=== PATIENT | female | born 1955 | race Caucasian/White ===

== ENCOUNTER → 2019-05-28 16:00 | Outpatient (CLI) | payer MEDICARE, SELFPAY ==
--- NOTE | 2019-05-28 | IMM_PTH ---
PATIENT: LEXIE WOLFE LOC: [facility] U#:[id number] AGE/SX: 69/F ROOM: RE05/28/[address]: Dr. Paresh Alanis MD : 1955 BED: DIS: SPEC #: [id number] RECD: 05/30/19 13:35 STATUS: LIDA REQ #: [id number] PATRICIA: 05/28/19 00:[address]: Paresh Alanis DEPT: IMMUNOHISTOCHEMISTRY RECD BY: Lizette Beatty ENTERED: 05/30/19 13:37 SP TYPE: IMMUNO OTHR DR: Dr. Beatrice Iraheta MD Tissues: Skin of vulva Procedures: p16 (initial) KI-67 (add) PHYSICIAN & INSTITUTION [place] [id number] SPECIMEN INFORMATION: Tissue Source: Vulvar lesion Clinical Info: Vulvar lesion Specimen Number: [id number] CPT code: 65034, 08597 METHODOLOGY: Deparaffinized sections of prefer/formalin-fixed tissue or PAP/DQ stained slides are incubated with monoclonal/polyclonal antibodies/oligonucleotide probes. Localization is made via biotin free immunoperoxidase method. Appropriate controls are performed and reacted as expected. Results on target cell population are indicated in the following table: RESULTS: ANTIBODY / CLONE RESULT P16 (E6H4) positive, block staining Ki-67 (30-9) positive, moderate These tests were developed and their performance characteristics determined by [facility]. They may not have been cleared or approved by the U.S. Food and Drug Administration. The FDA has determined that such clearance or approval is not necessary. The above immunohistochemical/dualISH markers are ordered and reviewed by the Pathologist. INTERPRETATION: Vulvar lesion, excision: Consistent with moderate squamous dysplasia. SJ:brenna 05/31/19 Case has been reviewed in consultation with Dr. Melendez who concurs with the above diagnosis. IDC:AM
--- NOTE | 2019-05-28 16:00 | VUL_PTH ---
PATIENT: LEXIE WOLFE [facility] U[facility][id number] AGE/SX: 69/F ROOM: RE05/28/[address]: Dr. Paresh Alanis MD : 1955 BED: DIS: SPEC #: [id number] RECD: 05/29/19 10:41 STATUS: LIDA MELGARDanae #: [id number] PATRICIA: 05/28/19 16:[address]: Paresh Alanis DEPT: SURGICAL PATHOLOGY RECD BY: Vickie Ramos ENTERED: 05/29/19 13:48 SP TYPE: VULVA BX OTHR DR: Dr. 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 See comment. SJ:brenna 05/30/19 COMMENT Immunohistochemistry ([id number]) for surrogate HPV marker (p16) supports the above diagnosis. Clinical correlation and appropriate follow up are necessary. Case has been reviewed in consultation with Dr. Melendez who concurs with the above diagnosis. IDC:AM MICROSCOPIC DESCRIPTION Slides are reviewed. GROSS DESCRIPTION Received in fixative is one container labeled with the patient's name and designated vulvar lesion. The specimen consists of two irregular fragments of moses tissue that in aggregate measure 1 x 0.5 x 0.1 cm. The specimen is totally submitted in one cassette. / AM:brenna 05/29/19 TC:5 CPT: 64719
[2019-05-31 15:16] LABS: HPV Reflexed? NOT INDICATED
== END ==
PROVIDERS: Family Provider Family Medicine; PCP Family Medicine; Referring Provider Obstetrics & Gynecology; Visit Provider Obstetrics & Gynecology
DX: N89.4 Leukoplakia of vagina (principal); Z12.4 Encounter for screening for malignant neoplasm of cervix
CPT/HCPCS: 88175; 88305; 88341; 88342; G0145

== ENCOUNTER → 2019-06-05 17:31 | Outpatient (CLI) | payer MEDICARE, SELFPAY ==
--- NOTE | 2019-06-05 | CYSPIN_PTH ---
PATIENT: LEXIE WOLFE LOC: [facility] U#:[id number] AGE/SX: 69/F ROOM: RE06/05/[address]: Dr. Joyce Higginbotham MD : 1955 BED: DIS: SPEC #: [id number] RECD: 06/06/19 17:34 STATUS: LIDA REDanae #: [id number] PATRICIA: 06/05/19 00:[address]: Joyce Higginbotham DEPT: CYTOLOGY RECD BY: Maxi Carvalho ENTERED: 06/06/19 10:23 SP TYPE: CYSPIN FL OTHR DR: Dr. Beatrice Iraheta MD Tissues: Urine Procedures: Pap Stain (control) Special Stain Group II Cytospin Fluid HEADER OPERATION: Not noted PRE-OP DIAGNOSIS: R30.0 TISSUE SUBMITTED: Urine for cytology DIAGNOSIS CYTOLOGY Urine for cytology (cytospin): Positive for malignant cells consistent with urothelial carcinoma. AM:brenna 1/17/20 COMMENT Case has been reviewed in consultation with Dr. Farley who concurs with the above diagnosis. IDC:SJ CYTOLOGY STUDY Slides are reviewed. CYTOLOGY GROSS Received is 5 ml of clear yellow fluid labeled with the patient's name and and designated per the requisition as urine. Submitted for cytology preparation. / rg 06/06/19 TC:0 [facility]: [id number]
[2019-06-05 17:35] LABS: Cytology, Body Fluid / CSF SEE PATHOLOGY REPORT
== END ==
PROVIDERS: PCP Family Medicine; Referring Provider Urology; Visit Provider Urology
DX: R30.0 Dysuria (principal)
CPT/HCPCS: 88108; 88313

== ENCOUNTER → 2019-06-06 14:20 | Outpatient (CLI) | payer MEDICARE, SELFPAY ==
--- NOTE | 2019-06-06 14:23 | CT_ITS ---
STUDY: CT ABDOMEN AND PELVIS WITH AND WITHOUT CONTRAST REASON FOR EXAM: Female, 64 years old. GROSS HEMATURIA, BLADDER/VULVA CA-NEW DIAGNOSIS RADIATION DOSAGE (If Supplied By Facility): CTDIvol = ( 8.92 ) mGy, DLP = ( 916.54 ) mGycm TECHNIQUE: Transaxial images were obtained from the dome of the diaphragm to the symphysis pubis without oral contrast. IV 100mL Isovue-300 was administered. Sagittal and coronal images were reconstructed. Individualized dose optimization techniques were used for this CT. COMPARISON: None. FINDINGS: There are emphysematous changes of the lung bases. The visualized portions of the heart are within normal limits. Normal liver. Normal gallbladder and extrahepatic biliary system. Normal spleen. There are pancreatic calcifications in the distribution of the ducts consistent with chronic pancreatitis. Normal bilateral adrenal glands. 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 Normal left kidney. Normal visualized stomach. Normal small intestine. Normal colon. The appendix is visualized and appears normal. There are calcified plaques of the abdominal aorta and common iliac arteries. Normal inferior vena cava. There are scattered shotty retroperitoneal nodes. There is diffuse wall thickening of the right lateral aspect of the bladder. There is a lobular heterogeneous mass of the anterior right bladder measuring approximately 2.7 x 1.8 cm. A small amount of gas is seen in the bladder. There are metallic clips of the right pelvis. The uterus is located to the right of midline. There is an irregular soft tissue mass of the vulva slightly to the right of midline measuring approximately 9.2 x 4.4 x 5.0 cm. There is a small umbilical hernia containing fat. Normal osseous structures. CT/CT Abd/Pelvis W/WO Contrast IMPRESSION: 1. Diffuse wall thickening of the right lateral aspect of the bladder. There is a lobular heterogeneous mass of the anterior right bladder wall measuring approximately 2.7 x 1.8 cm. A small amount of gas is present in the bladder. 2. There is an irregular soft tissue mass of the vulvar region slightly to the right of midline measuring overall approximately 9.2 x 4.4 x 5.0 cm. 3. Emphysematous changes of the lung bases. 4. Numerous punctate pancreatic calcifications seen consistent with chronic pancreatitis. 5. The right kidney is located in the upper pelvis and is malrotated. 6. There are scattered shotty retroperitoneal nodes. Electronically Signed: Pop Fuchs MD at 20:21 EST , Service support ,
[2019-06-06 14:46] LABS: CREATININE FINGERSTICK 0.9 mg/dL (0.55-1.02)
== END ==
PROVIDERS: Family Provider Family Medicine; PCP Family Medicine; Referring Provider Urology; Visit Provider Urology
DX: R31.0 Gross hematuria (principal)
CPT/HCPCS: 74178; Q9967

== ENCOUNTER 2019-07-12 08:33 | Day surgery (SDC) | payer MEDICARE, SELFPAY ==
[2019-07-10 08:52] VITALS: BMI 18.7
--- NOTE | 2019-07-10 08:52 | HP_ITS ---
Intake Intake Visit Reasons: PORT PLACEMENT Chief Complaint: Bladder cancer Allergies egg Adverse Reaction (Severe, Verified 07/04/19 13:39) Itching Egg Derived Adverse Reaction (Severe, Verified 07/04/19 13:39) Itching PFSH Family History (Updated 07/04/19 @ 13:39 by Myrna Davidevgeny) Mother Heart disease Hypertension Father Hypertension Heart disease Social History (Updated 07/10/19 @ 08:[address] Frantz Gann MD) Smoking Status: Light Smoker (<10/day) HPI HPI HPI: LEXIE WOLFE, is a 64 F who presents to the office today for HPI HPI Surgical H&P: Yes HPI: LEXIE WOLFE, is a 64 F who presents to the office today for port placement. The patient has bladder cancer and requires port for treatment. ROS General General: No weight change or fatigue Cardio Cardiovascular: No murmur, pacemaker, heart disease, atrial fibrillation, high blood pressure, heart attack, heart stent, palpitations, shortness of breat with exertion or chest pain Psych Psychiatric: No depression or anxiety Resp Respiratory: No shortness of breath, No sleep apnea, No cough, No COPD, No asthma, No emphysema, No wheezing Gastro Gastrointestinal: No abdominal pain, No nausea or vomiting, No diarrhea, No constipation, No blood in stool, No acid reflux, No hemorrhoids, No ulcers, No gallbladder problem, No black,tarry stools Ananda Hematologic: No blood thinners Exam Const General: cooperative Orientation: alert, oriented x3 Resp Effort & Inspection: normal respiratory effort Auscultation: clear to auscultation bilaterally Cardio Rate: regular rate Rhythm: regular rhythm Heart Sounds: no murmurs GI Inspection: non-distended Palpation: soft, nontender Assessment & Plan Problems 1. Malignant neoplasm of urinary bladder, unspecified site C67.9 2. Encounter for adjustment and management of vascular access device Z45.2 Plan The patient requires port for treatment. I discussed port placement with her in detail. I discussed the risks including not limited to bleeding, infection, pneumothorax, port infection, DVT. The patient understands the risks and is willing to proceed. Frantz Gann MD Pager: [facility] [address] [place] [address], [address] [place] [address] Office: Coding Level of Care Code Off vis,new,level 3 Diagnoses Malignant neoplasm of urinary bladder, unspecified site C67.9 ??Bladder location: unspecified site Encounter for adjustment and management of vascular access device Z45.2 07/10/19 0853 <Electronically signed by Frantz duenas MD> Date _ Frantz Gann MD I have re-examined the patient. There are no clinical changes since date of exam.
[2019-07-12] VITALS (8 sets, daily range): BP systolic 110–131; BP diastolic 64–78; PULSE 81–86; RESP 14–16; TEMP 36.3–37.3; O2SAT 97–100; BMI 19.0
[2019-07-12] MEDS: Lactated Ringers 1,000 ML 100 ML IV ×2 (09:24→10:38)
[2019-07-12] MEDS: Cefazolin 2 GM in 0.9% Normal Saline 100 ML IV (09:56)
[2019-07-12] MEDS: Bupiv/Epi 0.5% Mpf 30 ML Vial (10:23)
--- NOTE | 2019-07-12 11:05 | RAD_ITS ---
STUDY: X-RAY CHEST REASON FOR EXAM: Female, 64 years old. POST PORT PLACEMENT TECHNIQUE: Single AP portable view of the chest. COMPARISON: None. FINDINGS: A right-sided portacatheter is in situ. The tip is at the junction of the superior vena cava and right atrium. EKG electrodes are seen. Hyperinflation. Mild increased markings at the right lung base suggestive of atelectasis. There is no demonstrated pleural abnormality. Normal size heart. Normal mediastinum and sheila. Normal visualized pulmonary arteries. Normal visualized aortic arch and descending thoracic aorta. Normal visualized thoracic spine. Normal visualized ribs, clavicles, and shoulders. There is no demonstrated abnormality of the visualized soft tissue structures of the upper abdomen. RAD/CXR for Line Placement IMPRESSION: The tip of the right adalid catheter is at the junction of the superior vena cava and right atrium. Electronically Signed: Hay Silva, at 12:06 EST , Service support ,
--- NOTE | 2019-07-12 11:17 | OP.PCM_ITS ---
Problem List (1) Encounter for adjustment and management of vascular access device Status: Acute (2) Bladder cancer Status: Acute Qualifiers: Report of Operation Date of Procedure: 07/12/19 Pre-Operative Diagnosis: Bladder cancer. Need for vascular access Post-Operative Diagnosis: Same Surgery/Procedure Performed:: Ultrasound and fluoroscopy guided right chest port placement utilizing right IJ Description of Procedure: After obtaining informed consent patient was brought back to the operating room MAC anesthesia was induced and the right chest and neck were prepped in normal sterile fashion. Ultrasound was used to evaluate both IJs and the right IJ was selected. Next, using a needle, the right IJ was accessed and a guidewire was passed on into the superior vena cava under fluoroscopy guidance. A small incision was made over the puncture site and the dilator introducer was placed over the guidewire. Next this was capped and the pocket was made for the port. 1% lidocaine with epinephrine was injected in the proposed port site. An incision was made with scalpel. Electrocautery was used to make a pocket under the skin and subcutaneous tissue. Hemostasis was obtained. Next, the catheter was tunneled up to the neck incision site and placed through the introducer. The peel-away introducer was removed and the position of the catheter was confirmed on fluoroscopy. Next, the catheter was trimmed and attached to the port with the locking device. Interrupted 2-0 Vicryl sutures were used to anc hor the port to the chest wall and then the port was placed inside the pocket. The pocket was then flushed with saline and the port irrigated with saline. There was good blood return and the port flushed easily. Next, heparin was injected into the port. The skin was closed with subcutaneous interrupted 3-0 Vicryl sutures. A single 3-0 Vicryl sutures placed under the skin at the neck incision site. Steri-Strips were placed as well as op sites. Patient tolerated procedure well, was taken to PACU in stable condition. Chest x-ray will be obtained. Grafts/Implants Used: 8 [employer] PowerPort - Admit VTE Documentation VTE Mechan Device Prophylaxis: SCD's
--- NOTE | 2019-07-12 11:18 | DCINST_ITS ---
Discharge Diet: No Restrictions - Pain medication may cause nausea. You should typically eat light foods as you take your pain medication. Discharge Activity: Return to Normal Activity, May Shower - with your bandage in place in 1-2 days after surgery. DO NOT SHOWER WHEN YOUR PORT IS ACCESSED. Call your doctor if your incision/area has: Continuous Slow Oozing, Sudden Increased Bleeding, Increased Pain/ Swelling, Increased Redness Call your doctor if you observe: Fever of 101 or Higher Remove Dressing in (days):: 3 - When you remove the bandage, leave the steri- strips intact until they fall off. Allergies/Adverse Reactions: Allergies egg Adverse Reaction (Severe, Verified 07/10/19 15:06) Itching Egg Derived Adverse Reaction (Severe, Verified 07/10/19 15:06) Itching Medications to take at Discharge NK 07/10/19 Test Results: Test results from this visit will be discussed in further detail at your follow- up appointment, if applicable. Please Follow Up With: Frantz Gann MD When: Please call to schedule 2 week follow up appointment. [phone]
== END 2019-07-12 11:35 | disposition home or self-care (01) ==
LOC: SDC 08:34 → AC 08:35
PROVIDERS: PCP Family Medicine; Referring Provider Surgery; Visit Provider Surgery
PROC: (CPT 36561; principal; 2019-07-12 10:15)
DX: C67.9 Malignant neoplasm of bladder, unspecified (principal); Z45.2 Encounter for adjustment and management of vascular access device; F17.200 Nicotine dependence, unspecified, uncomplicated; Z85.41 Personal history of malignant neoplasm of cervix uteri
CPT/HCPCS: 00532; 36561; 71045; 77001; J7120; C1788

== ENCOUNTER → 2019-10-22 | Outpatient (CLI) | payer MEDICARE, SELFPAY ==
[2019-10-07 08:43] VITALS: BMI 20.5
[2019-10-15 10:15] VITALS: BMI 20.5
--- NOTE | 2019-10-22 13:55 | CT_ITS ---
STUDY: CT ABDOMEN AND PELVIS WITH CONTRAST REASON FOR EXAM: Female, 64 years old. BLADDER CA ASSESS RESPONSE TO TREATMENT, HAD ABD TUMOR REMOVED AND CHEMO RADIATION DOSAGE (If Supplied By Facility): CTDIvol = ( 8.91 ) mGy, DLP = ( 609.44 ) mGycm TECHNIQUE: Transaxial images were obtained from the dome of the diaphragm to the symphysis pubis without oral contrast. IV 100mL Isovue-370 was administered. Sagittal and coronal images were reconstructed. Individualized dose optimization techniques were used for this CT. COMPARISON: Comparison is made with prior study dated June 06, 2019. FINDINGS: Emphysematous changes are seen at the lung bases. The visualized portions of the heart are within normal limits. Normal liver. Normal gallbladder and extrahepatic biliary system. Normal spleen. There are pancreatic calcifications in the distribution of the ducts consistent with chronic pancreatitis. 2 tiny cysts are seen in the tail of the pancreas. Normal bilateral adrenal glands. Normal right kidney. Normal left kidney. Normal visualized stomach. Normal small intestine. Normal colon. The appendix is visualized and appears normal. There is diffuse atherosclerotic calcification of the abdominal aorta, without a demonstrated aneurysm. Normal inferior vena cava. There is borderline retroperitoneal lymphadenopathy with enlarged nodes no greater than 10mm in the short axis diameter. Minimal residual thickening of the right side of the wall of the urinary bladder. The mass lesion has decreased in size. Enlarged calcified fibroid uterus. The uterus is retroverted. Interval decrease in size of the bilateral inguinal lymph. Normal abdominal wall. There are degenerative changes of the visualized lumbar spine. Straightening of the normal lumbar lordosis. CT/Abdomen/Pelvis W IV Cont ONLY IMPRESSION: Stable examination except for the mild residual bladder wall thickening along the right lateral wall of the urinary bladder. Electronically Signed: Hay Silva, at 14:54 EDT , Service support ,
--- NOTE | 2019-10-22 13:55 | CT_ITS ---
STUDY: CT CHEST WITH CONTRAST REASON FOR EXAM: Female, 64 years old. BLADDER CA ASSESS RESPONSE TO TREATMENT, HAD ABD TUMOR REMOVED AND CHEMO RADIATION DOSAGE (If Supplied By Facility): CTDIvol = ( 8.91 ) mGy, DLP = ( 609.44 ) mGycm TECHNIQUE: Transaxial imaging was performed following intravenous administration of IV 100mL Isovue-370. Multiplanar coronal and sagittal images were reformatted. Individualized dose optimization techniques were used for this CT. COMPARISON: None. FINDINGS: A right-sided portacatheter is seen with the tip in the superior vena cava. Diffuse emphysematous changes with multiple bullous formation worse in the right upper lobe. Also evidence of a soft tissue density in the peripheral lateral aspect of the right upper lobe suggestive of a scarring. There is no demonstrated pleural abnormality. Normal heart and pericardium. Normal mediastinum. Normal hilar regions. Normal enhanced pulmonary arteries. There is atherosclerotic calcification of the aortic arch. Normal osseous structures. There is no demonstrated abnormality of the visualized upper abdomen. CT/Chest WITH Contrast IMPRESSION: Diffuse emphysematous changes with bullous formation worse in the right upper lobe and findings suggestive of scarring of both lung apices worse on the right side. Electronically Signed: Hay Silva, at 14:57 EDT , Service support ,
== END | disposition home or self-care (01) ==
LOC: CT 13:55
PROVIDERS: PCP Family Medicine; Referring Provider Internal Medicine Hematology & Oncology; Visit Provider Internal Medicine Hematology & Oncology
DX: C67.9 Malignant neoplasm of bladder, unspecified (principal); C82.90 Follicular lymphoma, unspecified, unspecified site; D07.1 Carcinoma in situ of vulva
CPT/HCPCS: 71260; 74177; Q9967

== ENCOUNTER → 2019-12-24 | Outpatient (CLI) | payer MEDICARE, SELFPAY ==
[2019-12-09 12:40] VITALS: BMI 18.4
[2019-12-23 09:11] VITALS: BMI 18.5
--- NOTE | 2019-12-24 15:00 | PET_ITS ---
EXAMINATION: FDG PET-CT INDICATIONS: A 64-year-old female with reported history of carcinoma of the urinary bladder presenting for restaging examination and remote history of cervical carcinoma. COMPARISON EXAMINATION: FDG PET study dated 07/15/2019 TECHNIQUE: Following the intravenous administration of 14.0 mCi of F-18 deoxyglucose via the right antecubital fossa, multiplanar image acquisitions of the neck, chest, abdomen and pelvis to level of mid thigh, obtained at one hour post radiopharmaceutical administration contemporaneously interpreted with the current CT of the neck, chest, abdomen and pelvis, to level of mid thigh, dated 12/24/2019 via coregistration and prior FDG PET study dated 07/15/2019 reveals: BLOOD GLUCOSE LEVEL:?? 88 mg/dl?HEIGHT:?64 inches?WEIGHT: 107 lbs. FINDINGS: 1. There is no quantitative scintigraphic evidence of abnormal increased glucose metabolism on meticulous inspection of whole body acquisitions to include all three axis reconstructions. 2. Normal physiologic distribution of the radiopharmaceutical is apparent in the hepatic and splenic parenchyma, both renal units, and visualized intestinal tract. The visualized portion of the cerebral cortex demonstrate symmetric and preserved glucose metabolism. There is evidence of an ileal conduit-urinary diversion. Diffuse radiopharmaceutical concentration is noted in all four quadrants of the abdomen and pelvis. There is a visualized urinary diversion with evidence of interim cystectomy. Previously identified hypermetabolic foci noted in the bilateral-lateral neck, axillary, mediastinal and thoracic perihilar, right-left hemipelvic and inguinal lymph node distributions are not apparent on the present examination. The urinary bladder is surgically absent. Urinary diversion is defined as described above. Previously defined morphologic-anatomic changes noted on review of CT of the neck, chest, abdomen and pelvis on the FDG PET-CT report dated 07/15/2019, are essentially unchanged on the current examination. PET/PET/CT Tumor Base -Thigh Subs IMPRESSION: 1. NEGATIVE EXAMINATION. There is no definitive quantitative scintigraphic evidence of recurrent-metastatic/viable neoplasm. 2. There is interim metabolic resolution of all prior defined hypermetabolic abnormalities. 3. Overall, compared to the prior FDG PET study dated 07/15/2019, there is current absence of defined viable neoplastic disease with interim metabolic resolution of all previously described abnormal metabolic foci. Electronic Signature Elder Rodriguez D.O. Accurate Quantification of SUVs for this report are calculated using the exclusive [employer]. Electronically Signed: Elder Rodriguez DO at 16:36 EDT Tel , Service support ,
--- NOTE | 2019-12-30 10:45 | ONC.PHONE ---
I called Linda Kim to review the PET scan results from 12/24/2019 which demonstrated no evidence of recurrent or metastatic disease. I also again reviewed options for adjuvant radiation therapy given the lymph node positivity but also discussed options of observation given that she has negative margins and again reviewed that the use of radiation in this scenario does not come with a high level of data and a recent randomized trial is trying to address the question. Ultimately with the delayed healing/and some difficulty from surgery and need to care for her disabled son pursuing the radiation at this time a have more risks than benefits given the higher likelihood of systemic recurrence than pelvic recurrence and for these reasons we have decided to avoid radiation therapy. She was instructed to maintain follow-up with her surgeon and medical oncologist and to call with any further questions or concerns in the future.
== END | disposition home or self-care (01) ==
LOC: ONC 13:05
PROVIDERS: PCP Family Medicine
DX: C67.4 Malignant neoplasm of posterior wall of bladder (principal); C77.5 Secondary and unspecified malignant neoplasm of intrapelvic lymph nodes
CPT/HCPCS: 78815; A9552

== ENCOUNTER → 2020-05-05 12:52 | Outpatient (CLI) | payer MEDICARE, SELFPAY ==
[2019-12-09 12:40] VITALS: BMI 18.4
[2019-12-23 09:11] VITALS: BMI 18.5
[2020-02-17 14:34] VITALS: BMI 17.2
--- NOTE | 2020-05-05 12:56 | CT_ITS ---
STUDY: CT CHEST WITH CONTRAST REASON FOR EXAM: Female, 65 years old. FOLLOW UP ON BLADDER CA. HAD UROSTOMY AND THEN CHEMO SEPTEMBER OF 2019. RADIATION DOSAGE (If Supplied By Facility): CTDIvol = ( 9.37 ) mGy, DLP = ( 926.53 ) mGycm TECHNIQUE: Transaxial imaging was performed following intravenous administration of IV 75mL Isovue-300. Multiplanar coronal and sagittal images were reformatted. Individualized dose optimization techniques were used for this CT. COMPARISON: Comparison is made with prior CT scan of the thorax dated 10/22/2019. FINDINGS: Hyperinflation. Diffuse emphysematous changes with bullous formation worse in the right upper lobe. Findings suggestive of a stable mild scarring at the right lung base. There is no demonstrated pleural abnormality. There are calcifications of the coronary arteries. Normal mediastinum. Normal hilar regions. Normal enhanced pulmonary arteries. There is atherosclerotic calcification of the aortic arch with tortuosity and elongation of the aortic arch and descending thoracic aorta. Normal osseous structures. There is no demonstrated abnormality of the visualized upper abdomen. CT/Chest WITH Contrast IMPRESSION: Emphysematous changes. There is been no change as compared to prior study. Electronically Signed: Hay Silva, at 14:47 EST , Service support ,
--- NOTE | 2020-05-05 13:20 | CT_ITS ---
STUDY: CT ABDOMEN AND PELVIS WITH CONTRAST REASON FOR EXAM: Female, 65 years old. FOLLOW UP ON BLADDER CA. HAD UROSTOMY AND THEN CHEMO SEPTEMBER OF 2019. RADIATION DOSAGE (If Supplied By Facility): CTDIvol = ( 9.37 ) mGy, DLP = ( 926.53 ) mGycm TECHNIQUE: Transaxial images were obtained from the dome of the diaphragm to the symphysis pubis without oral contrast. IV 75mL Isovue-300 was administered. Sagittal and coronal images were reconstructed. Individualized dose optimization techniques were used for this CT. COMPARISON: Comparison is made with prior study dated 10/22/2019. FINDINGS: Minimal increased linear markings at the right lung base suggestive of mild scarring. The visualized portions of the heart are within normal limits. Normal liver. Normal gallbladder and extrahepatic biliary system. Normal spleen. There are pancreatic calcifications in the distribution of the ducts consistent with chronic pancreatitis. Normal bilateral adrenal glands. Normal right kidney. Normal left kidney. Normal visualized stomach. Normal small intestine. Normal colon. The appendix is visualized and appears normal. There is diffuse atherosclerotic calcification of the abdominal aorta, without a demonstrated aneurysm. Normal inferior vena cava. There is borderline retroperitoneal lymphadenopathy with enlarged nodes no greater than 10mm in the short axis diameter. The patient is status post resection of the bladder with a urostomy in the lower right patient is status post hysterectomy. Anterior abdominal wall . The uterus is retroverted. Normal abdominal wall. There are diffuse degenerative changes of the visualized lumbar spine. CT/Abdomen/Pelvis WITH Contrast IMPRESSION: Stable examination. Electronically Signed: Hay Silva, at 14:44 EST , Service support ,
== END ==
LOC: CT 12:53
PROVIDERS: PCP Family Medicine
DX: C77.5 Secondary and unspecified malignant neoplasm of intrapelvic lymph nodes (principal); C67.9 Malignant neoplasm of bladder, unspecified
CPT/HCPCS: 71260; 74177; Q9967

== ENCOUNTER → 2020-08-20 08:11 | Outpatient (CLI) | payer MEDICARE, SELFPAY ==
[2019-12-23 09:11] VITALS: BMI 18.5
[2020-05-28 12:10] VITALS: BMI 16.9
--- NOTE | 2020-08-20 08:20 | CT_ITS ---
STUDY: CT CHEST, ABDOMEN T PELVIS WITH CONTRAST REASON FOR EXAM: Female, 65 years old. FOLLOW UP URINARY BLADDER CANCER RADIATION DOSAGE (If Supplied By Facility): CTDIvol = ( 9.6 ) mGy, DLP = ( 548.75 ) mGycm TECHNIQUE: Transaxial imaging was performed following intravenous administration of IV 100mL Isovue-300. Individualized dose optimization techniques were used for this CT. COMPARISON: Comparison is made with prior examination dated 05/05/2020. FINDINGS: CHEST A right-sided portacatheter is seen with the tip in the superior vena cava. Hyperinflation. Diffuse emphysematous changes with bullous formation worse in the upper lobes. Stable fibrocalcific scarring in the posterior lateral aspect of the left lung apex. There is no demonstrated pleural abnormality. There are calcifications of the coronary arteries. Normal mediastinum. Normal hilar regions. Normal unenhanced pulmonary arteries. There is atherosclerotic calcification of the aortic arch with tortuosity and elongation of the aortic arch and descending thoracic aorta. Normal osseous structures. There is no demonstrated abnormality of the visualized upper abdomen. ABDOMEN The visualized lung bases are unremarkable. The visualized portions of the heart are within normal limits. Normal liver. Normal gallbladder and extrahepatic biliary system. Normal spleen. Normal pancreas. Normal bilateral adrenal glands. Normal right kidney. Normal left kidney. Normal visualized stomach. Normal small intestine. Normal colon. The appendix is visualized and appears normal. There is diffuse atherosclerotic calcification of the abdominal aorta, without a demonstrated aneurysm. Normal inferior vena cava. Normal retroperitoneum. An ileostomy is seen in the right lower quadrant. The patient is status post cystostomy. Normal osseous structures. PELVIS Normal urinary bladder. Hysterectomy. Normal visualized small intestine. Normal visualized colon. There is no pelvic fluid. There is no pelvic lymphadenopathy or mass lesion. Normal visualized pelvic arteries. Normal abdominal wall. There are diffuse degenerative changes of the visualized lumbar spine. CT/CT Chest, Abd, Pel w/Contrast IMPRESSION: Stable examination. Electronically Signed: Hay Silva MD at 12:57 EDT , Service support ,
[2020-08-20 08:24] LABS: Absolute Lymphocyte Count 1.36 X10^3/uL (0.83-4.51); Basophil# 0.06 X10^3/uL; Eosinophil# 0.24 X10^3/uL; Eosinophils% 3.9 % (0-5); Hematocrit 46.5 % (37-47); Hemoglobin 15.3 g/dL (12.0-15.0); Lymphocyte # 1.36 X10^3/ul (4.0); Mean Corp Hgb Conc 32.9 g/dL (32-36); Mean Corpuscular Hgb 30.2 pg (27.0-32.0); Mean Corpuscular Volume 91.9 fL (81-99); Mean Platelet Vol. 9.2 fl (6.2-12.0); Monocyte# 0.48 X10^3/uL; Monocyte% 7.8 % (0-10); NRBC Flagged by Analyzer 0 % (0-5); Neutrophil # 4.02 X10^3/uL (2.7-7.7); Platelet Count 228 K/mm3 (150-450); RBC Distribution Width CV 13.4 % (11.6-14.6); RBC Distribution Width SD 45.6 fl (35.1-43.9); Red Blood Count 5.06 M/mm3 (4.2-5.4); White Blood Count 6.2 K/mm3 (4.4-11.0)
[2020-08-20 08:39] LABS: ALB/GLOB Ratio 1.1 RATIO (0.9-2.4); AST(SGOT) 17 U/L (15-37); Alanine Aminotransfer ALT/SGPT 22 U/L (13-56); Albumin, Serum 3.8 g/dL (3.2-5.0); Alkaline Phosphatase 105 U/L (45-117); Anion Gap 5 (5-15); BUN 16 mg/dL (7-18); Calcium,Total 9.1 mg/dL (8.5-10.1); Chloride 104 mmol/L (98-107); Creatinine, Serum 0.84 mg/dL (0.55-1.02); EST Glomerular Filtration Rate 72 mL/min (>60); Est Glom Filt Rate - Afr Amer 87 mL/min (>60); Globulin 3.4 g/dL (2.2-4.2); Glucose 101 mg/dL (74-106); LDH 163 U/L (84-246); Potassium 4.3 mmol/L (3.5-5.1); Protein, Total 7.2 g/dL (6.4-8.2); Sodium Level 138 mmol/L (136-145)
[2020-08-20 08:46] LABS: CREATININE FINGERSTICK 1.1 mg/dL (0.55-1.02)
[2020-08-20 16:16] LABS: Xtra Tube EP Lab EXTRA TUBE
== END ==
PROVIDERS: PCP Family Medicine; Referring Provider Internal Medicine Hematology & Oncology; Visit Provider Internal Medicine Hematology & Oncology
DX: C67.9 Malignant neoplasm of bladder, unspecified (principal); C82.90 Follicular lymphoma, unspecified, unspecified site; D07.1 Carcinoma in situ of vulva
CPT/HCPCS: 36415; 71260; 74177; 80053; 83615; 85025; Q9967

== ENCOUNTER → 2020-09-04 10:32 | Outpatient (CLI) | payer MEDICARE, SELFPAY ==
[2019-12-23 09:11] VITALS: BMI 18.5
[2020-05-28 12:10] VITALS: BMI 16.9
--- NOTE | 2020-09-04 10:33 | BI_ITS ---
MAMMOGRAPHY - BILATERAL SCREENING REASON FOR EXAM: Female, 65 years old. Routine annual screening examination. PERTINENT HISTORY: Non-contributory. History of prior left mastitis with resulting retraction of the left nipple. TECHNIQUE: Digital bilateral breast jackeline (3D mammographic acquisition) in the CC and MLO projections. 2-D mediolateral oblique (MLO) and craniocaudad (CC) views of both breasts were obtained. CAD: Full Field Digital Mammography with Computer Added Detection was performed. COMPARISON: No comparison mammograms available at this time. If any prior films become available, an addendum to this report can be generated. FINDINGS: Breast Composition: The breasts are heterogeneously dense, which may obscure small masses. There is a 8 mm x 14.5 mm nodular density in the deep inferior medial aspect of the right breast. Central calcification seen within. Correlation with ultrasound is recommended. No other significant abnormalities are identified. BI/SCRN MAMM (CAD)W/JACKELINE BILAT IMPRESSION: 8 mm x 14.5 mm nodular density in the deep inferior medial aspect of the right breast. Correlation with ultrasound is recommended. ASSESSMENT CATEGORY: BIRADS Category 0: Incomplete. Need additional imaging evaluation. A letter regarding these results will be sent to the patient by the facility within 30 days. Approximately 10% of breast cancers are not detected by mammography. A normal mammogram should not delay biopsy of a clinically suspicious abnormality. [id number] Electronically Signed: Hay Silva MD at 12:23 EDT , Service support ,
== END ==
PROVIDERS: PCP Family Medicine; Referring Provider Internal Medicine Hematology & Oncology; Visit Provider Internal Medicine Hematology & Oncology
DX: Z12.31 Encounter for screening mammogram for malignant neoplasm of breast (principal)
CPT/HCPCS: 77063; 77067

== ENCOUNTER → 2020-09-11 08:45 | Outpatient (CLI) | payer MEDICARE, SELFPAY ==
[2019-12-23 09:11] VITALS: BMI 18.5
[2020-05-28 12:10] VITALS: BMI 16.9
--- NOTE | 2020-09-11 09:02 | US_ITS ---
STUDY: ULTRASOUND BREAST - RIGHT REASON FOR EXAM: Female, 65 years old. Abnormal screening mammogram. TECHNIQUE: Axial and longitudinal images of the RIGHT breast were performed with a high resolution ultrasound transducer. # OF IMAGES: 13 COMPARISON: Comparison is made with prior mammogram dated 09/04/2020. FINDINGS: RIGHT Breast: The mammographic abnormality corresponds to a 1.4 cm x 0.9 cm x 0.4 cm well-defined hypoechoic nodule with small calcifications noted within it at the 3 o''clock position of the breast at 5 cm from nipple. This most likely represents a fibroadenoma. Tissue diagnosis is recommended. US/Breast Limited Unilateral IMPRESSION: Mammographic abnormality corresponds to a 1.4 cm x 0.9 cm x 0.4 cm well-defined hypoechoic nodule at the 3 o''clock position of the breast at 5 cm from the nipple. Small calcification is seen within it. This most likely represents a fibroadenoma. Tissue diagnosis is recommended. ASSESSMENT CATEGORY: BIRADS Category 4: Suspicious - Biopsy Should Be Considered. A letter regarding these results will be sent to the patient by the facility within 30 days. Electronically Signed: Hay Silva MD at 9:35 EDT , Service support ,
== END ==
LOC: OPUS 09:00
PROVIDERS: PCP Family Medicine; Referring Provider Internal Medicine Hematology & Oncology; Visit Provider Internal Medicine Hematology & Oncology
DX: R92.2 Inconclusive mammogram (principal)
CPT/HCPCS: 76642

== ENCOUNTER → 2020-09-16 | Outpatient (CLI) | payer MEDICARE, SELFPAY ==
[2019-12-23 09:11] VITALS: BMI 18.5
--- NOTE | 2020-09-16 09:00 | BRBX_PTH ---
PATIENT: LEXIE WOLFE LOC: [facility] U#:[id number] AGE/SX: 65/F ROOM: RE09/16/[address]: Dr. Frantz Gann MD : 1955 BED: DIS: 09/16/2020 SPEC #: [id number] RECD: 09/17/20 10:34 STATUS: LIDA REDanae #: [id number] PATRICIA: 09/16/20 09:[address]: Frantz Gann DEPT: SURGICAL PATHOLOGY RECD BY: Tenisha Mattson ENTERED: 09/17/20 10:34 SP TYPE: BREAST BX OTHR DR: Dr. Beatrice Iraheta MD Tissues: Breast, NOS Procedures: Surgery Specimen Level IV HEADER OPERATION: Right breast biopsy PRE-OP DIAGNOSIS: Right breast TISSUE SUBMITTED: Right breast tissue MICROSCOPIC DIAGNOSIS Right breast, core biopsy: Hyalinized fibroadenoma. Negative for atypia or malignancy. See comment. SJ:brenna 09/18/2020 COMMENT Correlation with clinical, radiologic findings and appropriate follow up are necessary. 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 and ([id number]) urine for cytology with diagnosis of ?positive for malignant cells consistent with urothelial carcinoma.? MICROSCOPIC DESCRIPTION Slides are reviewed. GROSS DESCRIPTION Received in fixative is one container labeled with the patient name and designated right breast. The specimen consists of multiple elongated fragments of moses-yellow fibroadipose tissue that in aggregate measure 1.5 x 0.3 x 0.1 cm. The entire specimen is submitted in one cassette. / LOUANN:brenna 09/17/20 TC:1 CPT: 30899
[2020-09-17 08:53] VITALS: BMI 16.9
== END | disposition home or self-care (01) ==
LOC: LABSPEC 09-17 10:15
PROVIDERS: PCP Family Medicine; Referring Provider Surgery; Visit Provider Surgery
DX: D24.1 Benign neoplasm of right breast (principal)
CPT/HCPCS: 88305

== ENCOUNTER 2020-10-27 17:43 | Emergency (ER) | payer MEDICARE, SELFPAY ==
[2019-12-23 09:11] VITALS: BMI 18.5
[2020-09-17 08:53] VITALS: BMI 16.9
[2020-10-27 17:44] VITALS: BP 130/79; PULSE 84; RESP 16; TEMP 36.8; O2SAT 98; BMI 18.3
--- NOTE | 2020-10-27 18:33 | CT_ITS ---
STUDY: CT ABDOMEN AND PELVIS WITH CONTRAST REASON FOR EXAM: Female, 65 years old. Abdominal pain, mostly epigastric, eval for SBO RADIATION DOSAGE (If Supplied By Facility): CTDIvol = ( 14.77 ) mGy, DLP = ( 294.96 ) mGycm TECHNIQUE: Transaxial images were obtained from the dome of the diaphragm to the symphysis pubis without oral contrast. IV 100mL Isovue-300 was administered. Sagittal and coronal images were reconstructed. Individualized dose optimization techniques were used for this CT. COMPARISON: 05/05/2020 FINDINGS: Minor interstitial thickening and emphysematous changes at the lung bases.. The visualized portions of the heart are within normal limits. Normal liver. Normal gallbladder and extrahepatic biliary system. Normal spleen. Multiple periductal calcifications within the uncinate process of the pancreas consistent with chronic pancreatitis Small amount of fluid in the right subphrenic space Normal bilateral adrenal glands. Normal right kidney. Normal left kidney. Postsurgical changes status post cystectomy and ileal conduit in the right lower quadrant. Distended stomach and multiple loops of proximal to mid small bowel without definitive localized obstructing lesion most likely representing ileus although partial small bowel obstruction not excluded.. No evidence for acute appendicitis Atherosclerotic changes of the aorta without evidence for aneurysm. Normal inferior vena cava. Normal retroperitoneum. Uterus not visualized consistent with hysterectomy. Small amount of ascites noted within the pelvis. Normal abdominal wall. Lumbar spine demonstrates mild degenerative change CT/Abdomen/Pelvis W IV Cont ONLY IMPRESSION: Postsurgical changes status post hysterectomy cystectomy and ileal conduit in the right lower quadrant. Probable ileus however cannot definitively exclude partial small bowel obstruction. Recommend clinical correlation and follow-up studies. Electronically Signed: Alexandro Chaudhary MD at 22:23 EDT , Service support ,
[2020-10-27] MEDS: Morphine 4 MG/ML Syringe IV ×2 (18:36→20:49)
[2020-10-27] MEDS: Ondansetron 4 MG/2 ML Vial IV (18:36)
--- NOTE | 2020-10-27 18:37 | EX.ED.DYSGE1 ---
HPI <Dr. David White DO - Last Filed: 10/31/20 06:58> History of Present Illness Chief Complaint: Abd Pain Informant: patient Narrative Narrative: Patient is a 65-year-old female with history of bladder cancer status post excision who presents to the emergency department for epigastric abdominal pain. She currently rates as 8 out of 10. It has been present all day. No known aggravating relieving factors. She does not take anything for it. She has been nauseous and vomiting. She denies any change in bowel movements. She denies any blood or black tarry stools. She does have a stoma urostomy. She denies any chest pain or shortness of breath. No fevers or chills. No back pain. She is actively vomiting on examination. PFSH <Dr. 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 Home Medications metoprolol tartrate 25 mg PO BID 12/09/19 [History Last Taken Unknown] estradiol 1 applic VAGINAL DAILY 10/27/20 [History Last Taken Unknown] Allergy/AdvReac Type Severity Reaction Status Date / Time egg AdvReac Severe Itching Verified 10/27/20 17:46 Egg Derived AdvReac Severe Itching Verified 10/27/20 17:46 Family History Mother Heart disease Hypertension Father Hypertension Heart disease Surgical History History of bunionectomy History of resection of small bowel History of urostomy History of uvulectomy Port-A-Cath in place Social History Smoking Status: Current every day smoker tobacco type: cigarettes ROS <Dr. David White DO - Last Filed: 10/31/20 06:58> ROS ED Constitutional Constitutional ED: Denies chills or fever(s) Eyes Eyes: Denies change in vision ENT ENT ED: Denies epistaxis or rhinorrhea Cardiovascular Cardiovascular: Denies chest pain or palpitations Respiratory/Chest Respiratory/Chest: Denies cough, dyspnea or dyspnea on exertion Gastrointestinal Gastrointestinal: Reports abdominal pain, loose stools, nausea and vomiting; Denies diarrhea or melena Genitourinary Genitourinary ED: Denies hematuria Musculoskeletal Musculoskeletal: Denies back pain or neck pain Integumentary Denies rash Neurologic Neurologic: Denies dizziness, headache(s) or weakness EXAM <Dr. David White DO - Last Filed: 10/31/20 06:58> Physical Exam Const Vital Signs: 10/27/20 17:44 10/27/20 18:59 10/27/20 20:44 Temperature 98.2 F 98.8 F 97.8 F Temperature Source Temporal Temporal Temporal Pulse Rate 84 78 78 Respiratory Rate 16 16 16 Blood Pressure 130/79 H 136/74 H 157/75 H Blood Pressure Mean 96 94 102 Pulse Ox 98 97 96 Oxygen Delivery Method Room Air Room Air Room Air 10/27/20 22:44 10/27/20 23:26 10/28/20 00:18 Temperature 98.1 F 97.6 F L 98.2 F Temperature Source Temporal Oral Oral Pulse Rate 74 91 68 Respiratory Rate 16 16 14 Blood Pressure 132/74 H 143/78 H 134/76 H Blood Pressure Mean 93 99 95 Pulse Ox 98 93 97 Oxygen Delivery Method Room Air Room Air Room Air General Appearance ED: NAD HEENT Reports normocephalic, head/scalp atraumatic and moist mucous membranes Eyes PERRL and EOMs intact bilaterally Neck supple Resp normal respiratory effort and clear to auscultation bilaterally Auscultation: Negative for rales, rhonchi or wheezes Cardio regular rate, regular rhythm and no murmurs GI GI Narrative: Abdomen is nondistended. Hyperactive bowel sounds. Urinary stoma present. Diffuse tenderness without rebound or guarding. Palpation: soft; Negative for guarding or rebound tenderness present Back/Spine no CVA tenderness Extremity normal to inspection General Extremety ED: Negative for edema or tenderness General Extremity: Negative for edema Neuro oriented x3, CN's II-XII intact bilaterally and no sensory deficits noted Sensorium / Orientation: alert Motor Exam: strength 5/5 throughout Psych mental status grossly normal Skin no rashes or lesions noted <Dr. Justin Joyce MD - Last Filed: 10/28/20 01:44> Physical Exam Const Vital Signs: 10/27/20 17:44 10/27/20 18:59 10/27/20 20:44 Temperature 98.2 F 98.8 F 97.8 F Temperature Source Temporal Temporal Temporal Pulse Rate 84 78 78 Respiratory Rate 16 16 16 Blood Pressure 130/79 H 136/74 H 157/75 H Blood Pressure Mean 96 94 102 Pulse Ox 98 97 96 Oxygen Delivery Method Room Air Room Air Room Air 10/27/20 22:44 10/27/20 23:26 10/28/20 00:18 Temperature 98.1 F 97.6 F L 98.2 F Temperature Source Temporal Oral Oral Pulse Rate 74 91 68 Respiratory Rate 16 16 14 Blood Pressure 132/74 H 143/78 H 134/76 H Blood Pressure Mean 93 99 95 Pulse Ox 98 93 97 Oxygen Delivery Method Room Air Room Air Room Air [facility] <Dr. David White, DO - Last Filed: 10/31/20 06:58> [facility] Narrative Medical decision making narrative: Patient presents to the ED for epigastric abdominal pain. She is vomiting on my examination. Vital signs within normal limits. She does have abdominal tenderness as well as hyperactive bowel sounds. With her history of abdominal surgeries will get CT scan abdomen/pelvis. Basic lab work being obtained. She is treated symptomatically with Zofran and morphine. Patient CT scan showed ileus versus bowel obstruction. With her significant past medical history she will need to be observed overnight. Did speak with the general surgeon on-call who requested that she be transferred back to where she had her previous surgeries done. On my repeat examination she is feeling much better at this time. She will be signed out due to end of shift currently pending transfer. She otherwise has been stable throughout ED stay. Lab Data Labs: Laboratory Results - last 24 hr 10/27/20 10/27/20 10/27/20 18:24 18:24 19:15 WBC 11.0 RBC 5.56 H Hgb 16.9 H Hct 49.5 H MCV 89.0 MCH 30.4 MCHC 34.1 RDW Std Deviation 43.1 RDW Coeff of Ewelina 13.2 Plt Count 256 MPV 10.0 Immature Gran % (Auto) 0.500 Neut % (Auto) 85.7 H Lymph % (Auto) 7.6 L [place] % (Auto) 4.3 Eos % (Auto) 1.4 Baso % (Auto) 0.5 Absolute Neuts (auto) 9.4 H Absolute Lymphs (auto) 0.83 Nucleated RBC % 0 Sodium Cancelled 140 Potassium Cancelled 3.9 Chloride Cancelled 106 Carbon Dioxide Cancelled 26.0 Anion Gap Cancelled 8 BUN Cancelled 19 H Creatinine Cancelled 0.90 Estim Creat Clear Calc Cancelled 48.43 Est GFR (MDRD) Af Amer Cancelled 81 Est GFR (MDRD) Non-Af Cancelled 67 BUN/Creatinine Ratio Cancelled 21.2 H Glucose Cancelled 116 H Calcium Cancelled 9.5 Total Bilirubin Cancelled 0.40 AST Cancelled 12 L ALT Cancelled 17 Alkaline Phosphatase Cancelled 107 Troponin I Cancelled < 0.015 Total Protein Cancelled 7.8 Albumin Cancelled 4.1 Globulin Cancelled 3.7 Albumin/Globulin Ratio Cancelled 1.1 Lipase Cancelled 53 L Radiography Diagnostic Testing: Radiology Impression Abdomen/Pelvis CT 10/27/20 18:33 IMPRESSION: Postsurgical changes status post hysterectomy cystectomy and ileal conduit in the right lower quadrant. Probable ileus however cannot definitively exclude partial small bowel obstruction. Recommend clinical correlation and follow-up studies. Electronically Signed: Alexandro Chaudhary MD at 22:23 EDT , Service support , <Dr. Justin Joyce MD - Last Filed: 10/28/20 01:44> [facility] Lab Data Labs: Laboratory Results - last 24 hr 10/27/20 10/27/20 10/27/20 18:24 18:24 19:15 WBC 11.0 RBC 5.56 H Hgb 16.9 H Hct 49.5 H MCV 89.0 MCH 30.4 MCHC 34.1 RDW Std Deviation 43.1 RDW Coeff of Ewel[place] 13.2 Plt Count 256 MPV 10.0 Immature Gran % (Auto) 0.500 Neut % (Auto) 85.7 H Lymph % (Auto) 7.6 L [place] % (Auto) 4.3 Eos % (Auto) 1.4 Baso % (Auto) 0.5 Absolute Neuts (auto) 9.4 H Absolute Lymphs (auto) 0.83 Nucleated RBC % 0 Sodium Cancelled 140 Potassium Cancelled 3.9 Chloride Cancelled 106 Carbon Dioxide Cancelled 26.0 Anion Gap Cancelled 8 BUN Cancelled 19 H Creatinine Cancelled 0.90 Estim Creat Clear Calc Cancelled 48.43 Est GFR (MDRD) Af Amer Cancelled 81 Est GFR (MDRD) Non-Af Cancelled 67 BUN/Creatinine Ratio Cancelled 21.2 H Glucose Cancelled 116 H Calcium Cancelled 9.5 Total Bilirubin Cancelled 0.40 AST Cancelled 12 L ALT Cancelled 17 Alkaline Phosphatase Cancelled 107 Troponin I Cancelled < 0.015 Total Protein Cancelled 7.8 Albumin Cancelled 4.1 Globulin Cancelled 3.7 Albumin/Globulin Ratio Cancelled 1.1 Lipase Cancelled 53 L Radiography Diagnostic Testing: Radiology Impression Abdomen/Pelvis CT 10/27/20 18:33 IMPRESSION: Postsurgical changes status post hysterectomy cystectomy and ileal conduit in the right lower quadrant. Probable ileus however cannot definitively exclude partial small bowel obstruction. Recommend clinical correlation and follow-up studies. Electronically Signed: Alexandro Chaudhary MD at 22:23 EDT , Service support , Discharge Plan Triage Chief Complaint: Abd Pain ED Provider: Justin Joyce Dx/Rx/DC Orders Clinical Impression: Abdominal pain, Nausea & vomiting, Small bowel obstruction Prescriptions: No Action metoprolol tartrate 25 MG tablet 25 mg PO BID RF: 0 estradiol 0.01 % (0.1 mg/gram) cream 1 applic VAGINAL DAILY RF: 0 Primary Care Provider: Beatrice Iraheta Referrals: Beatrice Iraheta MD [Primary Care Provider] - Disposition Disposition: Acute Care Hospital Discharge Location: [facility] Discharge Date/Time: 10/28/20 02:52
[2020-10-27 18:41] LABS: Absolute Lymphocyte Count 0.83 X10^3/uL (0.83-4.51); Absolute Neutrophil Count 9.4 X10^3/uL (2.0-7.7); Basophil# 0.05 X10^3/uL; Basophil% 0.5 % (0-1); Eosinophil# 0.15 X10^3/uL; Eosinophils% 1.4 % (0-5); Hematocrit 49.5 % (37-47); Hemoglobin 16.9 g/dL (12.0-15.0); Lymphocyte # 0.83 X10^3/ul (0.83-4.51); Lymphocyte % 7.6 % (19-41); Mean Corp Hgb Conc 34.1 g/dL (32-36); Mean Corpuscular Hgb 30.4 pg (27.0-32.0); Monocyte# 0.47 X10^3/uL; Monocyte% 4.3 % (0-10); NRBC Flagged by Analyzer 0 % (0-5); Neutrophil # 9.44 X10^3/uL (2.7-7.7); Neutrophil % 85.7 % (47-70); Platelet Count 256 K/mm3 (150-450); RBC Distribution Width CV 13.2 % (11.6-14.6); RBC Distribution Width SD 43.1 fl (35.1-43.9); Red Blood Count 5.56 M/mm3 (4.2-5.4)
[2020-10-27 18:59] VITALS: BP 136/74; PULSE 78; RESP 16; TEMP 37.1; O2SAT 97
[2020-10-27 19:54] LABS: ALB/GLOB Ratio 1.1 RATIO (0.9-2.4); AST(SGOT) 12 U/L (15-37); Alanine Aminotransfer ALT/SGPT 17 U/L (13-56); Albumin, Serum 4.1 g/dL (3.2-5.0); Alkaline Phosphatase 107 U/L (45-117); Anion Gap 8 (5-15); BUN 19 mg/dL (7-18); BUN/Creat Ratio 21.2 RATIO (10-20); Calcium,Total 9.5 mg/dL (8.5-10.1); Chloride 106 mmol/L (98-107); EST Glomerular Filtration Rate 67 mL/min (>60); Est Glom Filt Rate - Afr Amer 81 mL/min (>60); Estimated Creatinine Clearance 48.43 ml/min; Globulin 3.7 g/dL (2.2-4.2); Glucose 116 mg/dL (74-106); Lipase 53 U/L (73-393); Potassium 3.9 mmol/L (3.5-5.1); Protein, Total 7.8 g/dL (6.4-8.2); Sodium Level 140 mmol/L (136-145)
[2020-10-27 20:44] VITALS: BP 157/75; PULSE 78; RESP 16; TEMP 36.6; O2SAT 96; O2SAT 98
[2020-10-27 22:44] VITALS: BP 132/74; PULSE 74; RESP 16; TEMP 36.7; O2SAT 98
[2020-10-27 23:26] VITALS: BP 143/78; PULSE 91; RESP 16; TEMP 36.4; O2SAT 93
[2020-10-28 00:18] VITALS: BP 134/76; PULSE 64; PULSE 68; RESP 14; RESP 16; TEMP 36.8; O2SAT 97
--- NOTE | 2020-10-28 00:22 | ED.RN ---
CALLED [facility] THEY SAID IT WOULD BE AWHILE UNTIL THEY WOULD HAVE A BED.
--- NOTE | 2020-10-28 00:37 | RAD_ITS ---
HISTORY: NG Insertion EXAMINATION/TECHNIQUE: XR Abdomen 1 View: AP view upper abdomen COMPARISON: CT abdomen and pelvis from 5 hours prior. FINDINGS: LINES AND TUBES: Enteric tube tip within gastric lumen with distal side port located just below diaphragm. BOWEL GAS PATTERN: Slightly prominent loops of small bowel again noted. Right mid abdominal ostomy. FREE AIR: Not assessed on a single supine view. OTHER: Renal excretion of contrast noted. LOWER CHEST: No acute pathology. BONES AND SOFT TISSUES: No acute pathology. RAD/Abdomen Single View (Portable) IMPRESSION: Enteric tube tip adequately positioned within gastric lumen. at 0203 Reported and signed by: Stephen Serrano MD Electronically Signed: Stephen Serrano MD at 2:01 EDT Tel , Service support ,
[2020-10-28] MEDS: Morphine 4 MG/ML Syringe IV (00:54)
[2020-10-28] MEDS: Metoclopramide 10 MG/2 ML Vial 5 MG IV (00:55)
[2020-10-28] MEDS: Oxymetazoline 0.05% 1 SPRAY SPRAY.BTL 2 SPRAY NASAL (00:55)
[2020-10-28] MEDS: Lidocaine 2% Jelly 1 APPLIC Tube TOPICAL (00:56)
[2020-10-28 01:27] VITALS: BP 131/79; PULSE 101; RESP 16; TEMP 36.9; O2SAT 93
--- NOTE | 2020-10-28 02:10 | ED.RN ---
ETA FOR EMS IS 30-45 MIN, APPROX [id number]
[2020-10-28 02:14] VITALS: BP 134/82; PULSE 80; RESP 15; O2SAT 94
[2020-10-28 02:21] VITALS: BP 139/79; PULSE 101; RESP 16; TEMP 36.9; O2SAT 93
== END 2020-10-28 02:52 | disposition short-term general hospital (02) ==
PROVIDERS: Emergency Medicine; Emergency Provider Emergency Medicine; PCP Family Medicine
DX: K56.609 Unspecified intestinal obstruction, unspecified as to partial versus complete obstruction (principal); F17.210 Nicotine dependence, cigarettes, uncomplicated
CPT/HCPCS: 74018; 74177; 80053; 83690; 84484; 85025; 96374; 96375; 96376; 99285; Q9967; A4216; J2405

== ENCOUNTER → 2021-03-01 08:27 | Outpatient (CLI) | payer MEDICARE, SELFPAY ==
[2019-12-23 09:11] VITALS: BMI 18.5
[2020-12-03 11:24] VITALS: BMI 17.3
--- NOTE | 2021-03-01 08:29 | CT_ITS ---
STUDY: CT CHEST, ABDOMEN T PELVIS WITH CONTRAST REASON FOR EXAM: Female, 65 years old. F/U BLADDER CANCER AND LYMPHOMA RADIATION DOSAGE (If Supplied By Facility): CTDIvol = ( 7.73 ) mGy, DLP = ( 451.83 ) mGycm TECHNIQUE: Transaxial imaging was performed following intravenous administration of IV 100mL Isovue-300. Individualized dose optimization techniques were used for this CT. COMPARISON: 08/20/2020 FINDINGS: CHEST Moderate emphysematous changes. Mild bilateral apical scarring. No noncalcified nodule or mass. There is no demonstrated pleural abnormality. Normal heart and pericardium. Normal mediastinum. Normal hilar regions. Normal unenhanced pulmonary arteries. Normal aorta arch and descending thoracic aorta. Normal osseous structures. There is no demonstrated abnormality of the visualized upper abdomen. ABDOMEN The visualized lung bases are unremarkable. The visualized portions of the heart are within normal limits. Normal liver. Normal gallbladder and extrahepatic biliary system. Normal spleen. There are pancreatic calcifications in the distribution of the ducts consistent with chronic pancreatitis. Normal bilateral adrenal glands. Normal right kidney. Normal left kidney. Normal visualized stomach. Normal small intestine. Normal colon. The appendix is visualized and appears normal. There is diffuse atherosclerotic calcification of the abdominal aorta, without a demonstrated aneurysm. Normal inferior vena cava. Normal retroperitoneum. Normal abdominal wall. Normal osseous structures. PELVIS Status post cystectomy with a right lower quadrant ileal conduit. Normal visualized small intestine. Normal visualized colon. There is no pelvic fluid. There is no pelvic lymphadenopathy or mass lesion. Normal visualized pelvic arteries. Normal abdominal wall. Normal osseous structures. CT/CT Chest, Abd, Pel w/Contrast IMPRESSION: No CT evidence of residual, recurrent, or metastatic bladder cancer. Electronically Signed: Elder Barlow MD at 14:26 EDT Tel , Service support ,
== END ==
LOC: CT 08:27
PROVIDERS: PCP Family Medicine; Referring Provider Internal Medicine Hematology & Oncology; Visit Provider Internal Medicine Hematology & Oncology
DX: C67.9 Malignant neoplasm of bladder, unspecified (principal)
CPT/HCPCS: 71260; 74177; Q9967

== ENCOUNTER → 2021-03-29 09:05 | Outpatient (CLI) | payer MEDICARE, SELFPAY ==
[2019-12-23 09:11] VITALS: BMI 18.5
--- NOTE | 2021-03-29 09:10 | US_ITS ---
STUDY: ULTRASOUND BREAST - RIGHT REASON FOR EXAM: Female, 65 years old. Six-month follow-up examination. Prior ultrasound-guided breast biopsy. TECHNIQUE: Axial and longitudinal images of the RIGHT breast were performed with a high resolution ultrasound transducer. # OF IMAGES: 24 COMPARISON: Comparison is made with prior examination 09/11/2020. FINDINGS: RIGHT Breast: Stable 1.4 cm x 0.9 cm x 0.3 cm well-defined hypoechoic nodule with tiny calcifications at the 3 o''clock position of the breast at 5 cm from the nipple. Adjacent to this, there is a 5 mm x 5 mm x 2 mm hypoechoic density which may represent a tiny hematoma following biopsy. US/Breast Limited Unilateral IMPRESSION: Status post biopsy of a 1.4 cm x 0.9 cm x 0.3 cm well-defined hypoechoic nodule as described. At this time, there is evidence of a 5 mm x 5 mm x 2 mm hypoechoic nodular density which may represent a tiny hematoma following the biopsy. ASSESSMENT CATEGORY: BIRADS Category 2: Benign. A letter regarding these results will be sent to the patient by the facility within 30 days. Electronically Signed: Hay Silva MD at 10:01 EST , Service support ,
== END ==
PROVIDERS: PCP Family Medicine; Referring Provider Surgery; Visit Provider Surgery
DX: R92.2 Inconclusive mammogram (principal)
CPT/HCPCS: 76642

== ENCOUNTER 2021-06-11 13:05 | Outpatient (CLI) | payer MEDICARE, SELFPAY ==
[2019-12-23 09:11] VITALS: BMI 18.5
--- NOTE | 2021-06-11 13:12 | CT_ITS ---
STUDY: CT CHEST, ABDOMEN T PELVIS WITH CONTRAST REASON FOR EXAM: Female, 66 years old. Bladder cancer surveillance. RADIATION DOSAGE (If Supplied By Facility): CTDIvol = ( 11.19 ) mGy, DLP = ( 399.51 ) mGycm TECHNIQUE: Transaxial imaging was performed following intravenous administration of IV 100mL Isovue-300. Individualized dose optimization techniques were used for this CT. COMPARISON: Comparison is made with prior examination dated 03/01/2021. FINDINGS: CHEST Hyperinflation. Diffuse emphysematous changes with bullous formation worse in the upper lobes and more pronounced in the right upper lobe. Minimal peripheral lateral scarring in the right upper lobe. Mild linear scarring at the right lung base. There is no demonstrated pleural abnormality. There are calcifications of the coronary arteries. Normal mediastinum. Normal hilar regions. Normal unenhanced pulmonary arteries. Normal aorta arch and descending thoracic aorta. There are multi-level degenerative changes of the thoracic spine. ABDOMEN Normal liver. Normal gallbladder and extrahepatic biliary system. Normal spleen. There are pancreatic calcifications in the distribution of the ducts consistent with chronic pancreatitis. Normal bilateral adrenal glands. Normal right kidney. Normal left kidney. Normal visualized stomach. Normal small intestine. There is evidence of a rectocele. There is diffuse atherosclerotic calcification of the abdominal aorta, without a demonstrated aneurysm. Normal inferior vena cava. Normal retroperitoneum. Normal abdominal wall. Normal osseous structures. PELVIS Once again, the patient is status post cystectomy with a ileal conduit in the anterior right lower quadrant. The patient is status post hysterectomy. There is no pelvic fluid. There is no pelvic lymphadenopathy or mass lesion. There is diffuse atherosclerotic calcification of the pelvic arteries. CT/CT Chest, Abd, Pel w/Contrast IMPRESSION: Stable examination. Electronically Signed: Hay Silva MD at 14:01 EST , Service support ,
[2021-06-11 13:26] LABS: CREATININE FINGERSTICK 1.1 mg/dL (0.55-1.02)
== END 2021-06-11 23:59 | disposition short-term general hospital (02) ==
PROVIDERS: PCP Family Medicine; Referring Provider Nurse Practitioner Family; Visit Provider Nurse Practitioner Family
DX: C67.9 Malignant neoplasm of bladder, unspecified (principal)
CPT/HCPCS: 71260; 74177; Q9967

== ENCOUNTER → 2021-09-21 | Outpatient (CLI) | payer MEDICARE, SELFPAY ==
[2019-12-23 09:11] VITALS: BMI 18.5
--- NOTE | 2021-09-21 11:40 | BI_ITS ---
MAMMOGRAPHY - BILATERAL SCREENING REASON FOR EXAM: Female, 66 years old. Routine annual screening examination. PERTINENT HISTORY: Non-contributory. Chronic inversion of the left nipple. TECHNIQUE: Digital bilateral breast jackeline (3D mammographic acquisition) in the CC and MLO projections. 2-D mediolateral oblique (MLO) and craniocaudad (CC) views of both breasts were obtained. CAD: Full Field Digital Mammography with Computer Added Detection was performed. COMPARISON: Comparison is made with prior study dated 09/04/2020. FINDINGS: Breast Composition: The breasts are extremely dense, which lowers the sensitivity of mammography. There are no dominant masses or suspicious calcifications. Stable 14.5 mm nodular density in the deep inferior medial aspect of the right breast. A focal calcification is seen within. No other significant abnormalities are identified. There has been no significant change since the prior study. BI/SCRN MAMM (CAD)W/JACKELINE BILAT IMPRESSION: Stable bilateral screening mammogram. Yearly follow-up mammogram recommended. (A) ASSESSMENT CATEGORY: BIRADS Category 2: Benign. A letter regarding these results will be sent to the patient by the facility within 30 days. Approximately 10% of breast cancers are not detected by mammography. A normal mammogram should not delay biopsy of a clinically suspicious abnormality. [id number] Electronically Signed: Hay Silva MD at 14:13 EDT ,
== END | disposition home or self-care (01) ==
LOC: OPBI 11:39
PROVIDERS: PCP Family Medicine; Visit Provider Internal Medicine Hematology & Oncology
DX: Z12.31 Encounter for screening mammogram for malignant neoplasm of breast (principal)
CPT/HCPCS: 77063; 77067

== ENCOUNTER → 2021-12-31 | Outpatient (CLI) | payer MEDICARE, SELFPAY ==
[2019-12-23 09:11] VITALS: BMI 18.5
--- NOTE | 2021-12-31 08:23 | CT_ITS ---
EXAM: CT CHEST, ABDOMEN AND PELVIS WITH INTRAVENOUS CONTRAST CLINICAL INDICATION: F/U BLADDER . CANCER IV CONTRAST. UROSTOMY TECHNIQUE: Helically acquired images were obtained of the chest, abdomen and pelvis with intravenous contrast. CTDIvol = ( 7.84 ) mGy, DLP = ( 516.79 ) mGycm This CT exam was performed using one or more of the following dose reduction techniques: automated exposure control, adjustment of the mA and/or kV according to patient size, and/or use of iterative reconstruction technique. This report was created using [employer] report Smart Balloon technology. CONTRAST: IV 70mL Isovue-300 COMPARISON: None. FINDINGS: CHEST: INFRAHYOID NECK: Trachea, esophagus, and thyroid are unremarkable. LUNGS AND PLEURAL SPACES: Centrilobular/paraseptal emphysema is worse at the upper lobes; focal pleural parenchymal scarring at the posterior lateral aspect of the right apex. No consolidation. No perfusion or pneumothorax. No suspicious pulmonary nodules or mass. HEART: Unremarkable. Heart size is normal. No pericardial effusion. No significant coronary artery calcifications. MEDIASTINUM: No mediastinal or hilar adenopathy. Esophagus is unremarkable. THYROID: See above. ABDOMEN: LIVER: Unremarkable. Homogeneous. No focal mass. GALLBLADDER AND BILE DUCTS: Unremarkable. No calcified gallstones. No gallbladder distention or wall edema. No intra- or extrahepatic biliary ductal dilation. PANCREAS: Chronic pancreatitis with ectatic cascades identified throughout. No focal cystic or solid mass. SPLEEN: Unremarkable. Normal size without focal cystic or solid mass. ADRENALS: Unremarkable. No nodules. KIDNEYS AND URETERS: Unremarkable. Normal renal size and position. No hydronephrosis. STOMACH AND BOWEL: Unremarkable. No stomach or bowel distention. No focal inflammatory change. PELVIS: APPENDIX: No evidence of acute appendicitis. BLADDER: Unremarkable. REPRODUCTIVE: Unremarkable as visualized. No mass. CHEST, ABDOMEN and PELVIS: INTRAPERITONEAL SPACE: Unremarkable. No ascites or other fluid collection. No free air. BONES/JOINTS: Unremarkable. No suspicious lytic or blastic abnormality. SOFT TISSUES: Unremarkable. No discrete abdominal or pelvic wall hernia. VASCULATURE: No PE. No aneurysm or dissection. No obvious central pulmonary embolism although this study was not performed with the pulmonary embolism protocol. CT/CT Chest, Abd, Pel w/Contrast IMPRESSION: 1. No PE, pneumonia or other acute disease. 2. Extensive emphysema. Electronically Signed: Shane Caldwell MD at 4:13 EDT ,
[2021-12-31 08:45] LABS: CREATININE FINGERSTICK < 0.9 mg/dL (0.55-1.02); EGFR FINGERSTICK > 60.0000 mL/min (>60)
== END | disposition home or self-care (01) ==
LOC: CT 08:20
PROVIDERS: PCP Family Medicine; Visit Provider Internal Medicine Hematology & Oncology
DX: C67.9 Malignant neoplasm of bladder, unspecified (principal)
CPT/HCPCS: 71260; 74177; Q9967

== ENCOUNTER → 2022-07-18 | Outpatient (CLI) | payer MEDICARE, SELFPAY ==
[2019-12-23 09:11] VITALS: BMI 18.5
--- NOTE | 2022-07-18 14:13 | CT_ITS ---
STUDY: CT CHEST, ABDOMEN T PELVIS WITH CONTRAST REASON FOR EXAM: Female, 67 years old. F/U U.B. CANCER LYMPHOMA IV CONTRAST ONLY RADIATION DOSAGE (If Supplied By Facility): CTDIvol = ( 7.49 ) mGy, DLP = ( 453.92 ) mGycm TECHNIQUE: Transaxial imaging was performed following intravenous administration of IV 100mL Isovue-370. Multiplanar coronal and sagittal images were reformatted. Individualized dose optimization techniques were used for this CT. COMPARISON: Comparison is made with prior study dated 12/31/2021. FINDINGS: CHEST Hyperinflation. Diffuse emphysematous changes worse in the upper lobes with multiple bullous formation more prominent in the right lung apex. There is no demonstrated pleural abnormality. Normal heart and pericardium. No significant coronary calcification is seen. Normal mediastinum. Normal hilar regions. Normal unenhanced pulmonary arteries. Mild degree of atherosclerotic plaque formation of the aortic arch. There are mild degenerative changes of the thoracic spine. ABDOMEN Normal liver. Normal gallbladder and extrahepatic biliary system. Normal spleen. There are pancreatic calcifications in the distribution of the ducts consistent with chronic pancreatitis. Normal bilateral adrenal glands. Normal right kidney. Normal left kidney. The stomach is distended with fluid. There is evidence of diffuse gastric wall thickening. Normal small intestine. There are scattered colonic diverticula consistent with diverticulosis. There are surgical clips in the region of the appendix consistent with a prior appendectomy. Normal abdominal aorta. Normal inferior vena cava. Normal retroperitoneum. Normal abdominal wall. There are scattered degenerative changes of the visualized lumbar spine. PELVIS The patient is status post cystectomy with an ileal conduit in the anterior right lower quadrant. The patient is status post hysterectomy. There is no pelvic fluid. There is no pelvic lymphadenopathy or mass lesion. Normal visualized pelvic arteries. CT/CT Chest, Abd, Pel w/Contrast IMPRESSION: Essentially stable examination. Fluid distention of the stomach with diffuse gastric wall thickening. Electronically Signed: Hay Silva MD at 15:50 EST ,
[2022-07-18 14:40] LABS: EGFR FINGERSTICK > 60.0000 mL/min (>60)
== END | disposition home or self-care (01) ==
PROVIDERS: PCP Family Medicine; Visit Provider Internal Medicine Hematology & Oncology
DX: C67.2 Malignant neoplasm of lateral wall of bladder (principal); C77.9 Secondary and unspecified malignant neoplasm of lymph node, unspecified; C82.90 Follicular lymphoma, unspecified, unspecified site; D07.1 Carcinoma in situ of vulva
CPT/HCPCS: 36415; 71260; 74177; 80053; 85025; Q9967

== ENCOUNTER → 2022-08-22 | Outpatient (CLI) | payer MEDICARE, SELFPAY ==
[2019-12-23 09:11] VITALS: BMI 18.5
--- NOTE | 2022-08-22 15:20 | RAD_ITS ---
STUDY: X-RAY - ABDOMEN/PELVIS REASON FOR EXAM: Female, 67 years old. Kidney stones. TECHNIQUE: Single AP view of the abdomen / pelvis. COMPARISON: None. FINDINGS: Normal visualized lung bases. Normal bowel gas pattern with air seen to the rectum without disproportion dilatation. There is no demonstrated free abdominal air. Bowel gas and feces obscure much of the abdominal shadows. No calcifications identified. Normal soft tissue structures. Normal visualized osseous structures. RAD/Abdomen Single View IMPRESSION: No abnormality of the visualized lower chest, abdomen or pelvis. Electronically Signed: Santiago Matthew, at 10:12 EDT ,
== END | disposition home or self-care (01) ==
LOC: RAD 15:18
PROVIDERS: PCP Family Medicine
DX: N20.0 Calculus of kidney (principal)
CPT/HCPCS: 74018

== ENCOUNTER → 2023-01-19 | Outpatient (CLI) | payer MEDICARE, SELFPAY ==
[2019-12-23 09:11] VITALS: BMI 18.5
--- NOTE | 2023-01-19 14:48 | CT_ITS ---
STUDY: CT CHEST, ABDOMEN T PELVIS WITH CONTRAST REASON FOR EXAM: Female, 67 years old. Known lymphoma RADIATION DOSAGE (If Supplied By Facility): CTDIvol = ( 7.75 ) mGy, DLP = ( 489.31 ) mGycm TECHNIQUE: Transaxial imaging was performed following intravenous administration of IV 100mL Isovue-300. Multiplanar coronal and sagittal images were reformatted. Individualized dose optimization techniques were used for this CT. COMPARISON: 07/18/2022, 10/27/2020 FINDINGS: CHEST Lung windows show severe underlying emphysema with bleb formation throughout both lung vines. Chronic interstitial changes noted in both lung vines as well without an organized infiltrate or effusion. There is dependent atelectasis in the lung bases. Normal heart and pericardium. There are calcifications of the coronary arteries. Normal mediastinum. Normal hilar regions. Normal unenhanced pulmonary arteries. Normal aorta arch and descending thoracic aorta. There are multi-level degenerative changes of the thoracic spine. ABDOMEN Normal liver. Normal gallbladder and extrahepatic biliary system. Normal spleen. Normal pancreas. Normal bilateral adrenal glands. Normal right kidney. Normal left kidney. Normal visualized stomach. Normal visualized small bowel loops and colon, there is a right lower quadrant ostomy site free of complication. Appendix not visualized. There is diffuse atherosclerotic calcification of the abdominal aorta, without a demonstrated aneurysm. Normal inferior vena cava. Normal retroperitoneum. No demonstrated hernia. There are diffuse degenerative changes of the visualized lumbar spine, and pelvis. PELVIS Bladder was previously removed. There is no pelvic fluid. There is no pelvic lymphadenopathy or mass lesion. Normal visualized pelvic arteries. CT/CT Chest, Abd, Pel w/Contrast IMPRESSION: Little significant interval change since the previous study. Severe underlying emphysema in the lung vines without a superimposed acute pulmonary process No suspicious axillary, mediastinal, or perihilar adenopathy No suspicious solid organ abnormality Right lower quadrant ostomy site free of complication Degenerative bony changes Electronically Signed: Charli Buchanan MD at 16:18 EDT ,
[2023-01-19 15:14] LABS: CREATININE FINGERSTICK 1.1 mg/dL (0.55-1.02)
== END | disposition home or self-care (01) ==
LOC: CT 14:47
PROVIDERS: PCP Family Medicine; Referring Provider Internal Medicine Hematology & Oncology; Visit Provider Internal Medicine Hematology & Oncology
DX: C82.90 Follicular lymphoma, unspecified, unspecified site (principal)
CPT/HCPCS: 71260; 74177; Q9967

== ENCOUNTER → 2024-03-19 | Outpatient (CLI) | payer MEDICARE, MEDICAID, SELFPAY ==
[2019-12-23 09:11] VITALS: BMI 18.5
--- NOTE | 2024-03-19 14:52 | CT_ITS ---
STUDY: LOW DOSE CT LUNG CANCER SCREENING REASON FOR EXAM: Female, 68 years old. Lung cancer screening -- and gt; 20 pk yr hx;current smoker;asymptomatic RADIATION DOSAGE (If Supplied By Facility): CTDIvol = ( 1.47 ) mGy, DLP = ( 55.23 ) mGycm TECHNIQUE: No contrast was administered. Low dose technique was utilized (average mAS-38 and kVp 120). 1.25 mm axial source images with a slice interval of 1.25-mm were reconstructed in lung windows. 2.5 mm axial source images with a slice interval of 2.5-mm were reconstructed in lung windows. 5.0 mm axial source images with a slice interval of 5.0-mm were reconstructed in soft tissue windows. COMPARISON: Comparison is made with prior study January 19, 2023. NODULES: There now is evidence of heterogeneous consolidation in the right upper lobe abutting the right minor fissure with multiple areas of bullous formation as well as bronchiectasis. Stable scarring at the left lung base. Emphysema: Hyperinflation. Diffuse emphysematous changes with bullous formation in the upper lobes worse in the right upper lobe. This is unchanged. Endobronchial lesion: None Aorta: Atherosclerotic plaque formation. CORONARY ARTERIES: Coronary artery calcification is seen. Heart: Unremarkable Pulmonary artery: Unremarkable Mediastinal nodes: Small mediastinal lymph nodes. Other chest and abdominal findings: CT/Low Dose CT Lung Screening IMPRESSION: Lung-RADS category 4A - Screening at 3 months with LDCT or evaluation with PET/CT may be used. IMPORTANT NOTES FOR USE: ACR Lung-RADS Version 1.1 Assessment Categories Release Date: 2018 Category: Coded 0-4 bases on nodule(s) with highest degree of suspicion. Negative screen is defined as categories 1 and 2; a positive screen is defined as categories 3 and 4. Category 3 and 4A nodules that are unchanged on interval CT should be coded as category 2, and individuals returned to screening in 12 months. Category 4X: Category 3 or 4 nodules with additional imaging findings that increase the suspicion of lung cancer, such as spiculation, GGN that doubles in size in 1 year, enlarged lymph notes, etc. Category Modifiers: S (significant finding unrelated to lung cancer) Electronically Signed: Hay Silva MD at 15:24 EDT ,
--- OUTSIDE RECORDS SUMMARY | 2024-03-19 19:45 | XMS RPT_ITS | CCD ---
Author Organization 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 Name Role Phone Beatrice Iraheta Primary Care Provider [phone] Radha Betancur Attending Unavailable VINAYAK RODRIGUEZ Attending Unavailab BEATRICE Francois ROSA Primary Care Unavailable VINAYAK RODRIGUEZ Referring Unavailab BEATRICE Francois ROSA Primary Care Unavailable Beatrice Iraheta Rosa Primary Care Provider [phone] KRIS THAO Admitting Unavailable KRIS THAO Attending Unavailable KRIS THAO Primary Care Unavailable LALITHAIFF, BEATRICE S Consulting Unavailable JOLIE, BEATRICE S Referring Unavailable PROVIDER, UNKNOWN Consulting Unavailable SKINNY SHELDON Admitting Unavailable SKINNY SHELDON Attending Unavailable SUJEYSKINNY MEYERS Primary Care Unavailable JOLLIFF, BEATRICE S Consulting Unavailable JOLLIFF, BEATRICE S Referring Unavailable PROVIDER, UNKNOWN Consulting Unavailable JOLLIFF, BEATRICE S Referring Unavailable JOLLIFF, BEATRICE S Consulting Unavailable SHAWN BROWN MD Admitting Unavailable SHAWN BROWN MD Attending Unavailable SHAWN BROWN MD Primary Care Unavailable PROVIDER, UNKNOWN Consulting Unavailable Allergies Allergy Classification Reported Allergen(s) Allergy Type Date of Onset Reaction(s) Facility (11 sources) Eggs Or Egg-Derived Products Propensity to adverse reactions to drug 0 Itching [facility] Work Phone: (5 sources) egg extract; Translations: [EGG] Drug Allergy 3 [facility] (1 source) Eggs or Egg-derived Products Drug allergy (disorder) 3 [facility] Repository (1 source) Egg Drug allergy (disorder) [facility] Repository Medications Current Medications Medication Drug Class(es) Dates Sig (Normalized) Sig (Original) 200 actuat albuterol 0.09 mg/actuat metered dose inhaler (4 sources) beta2-Adrenergic Agonist Start: 11-12-2019 take 2 puff(s) by inhalation every six hours as needed for wheezing 2 puff, Inhalation, EVERY 6 HOURS PRN, Wheezing, Starting 11/16/19 at 0309 Start: 11-04-2019 End: 11-12-2019 take 2 puff(s) by inhalation every six hours as needed for wheezing albuterol sulfate HFA (PROAIR HFA) 108 (90 Base) MCG/ACT inhaler Inhale 2 puffs into the lungs every 6 hours as needed for Wheezing 1 Inhaler 1 11/04/2019 11/12/2019 Discontinued (REORDER) ALPRAZolam 0.25 mg disintegrating oral tablet (4 sources) Benzodiazepine Start: 12-20-2021 ALPRAZolam (NI RAVAM) dissolvable tablet 0.25 mg Start: 06-11-2020 ALPRAZolam (NI RAVAM) dissolvable tablet 0.25 mg Start: 10-28-2019 End: 10-28-2019 ALPRAZolam (NIRAVAM) dissolv able tablet 0.25 mg Start: 06-17-2019 ALPRAZolam (NI RAVAM) dissolvable tablet 0.25 mg bacitracin 0.5 unt/mg / polymyxin b 10 unt/mg topical ointment (2 sources) Polymyxin-class Antibacterial Start: 06-17-2019 End: 06-24-2019 bacitracin-polymyxin b (POLYSPORIN) [id number] UNIT/GM ointment Apply topically daily. 1 Tube 1 06/17/2019 06/17/2019 Discontinued (REORDER) bisacodyl 10 mg rectal suppository (3 sources) Stimulant Laxative Start: 01-01-2021 take 10 mg rectal route once daily 10 mg, Rectal, DAILY, First dose on Mon01/01/21 at 0900 Start: 11-16-2019 bisacodyl (DUL COLAX) suppository 10 mg Start: 11-03-2019 End: 11-09-2019 bisacodyl (DULCOLAX) supposi tory 10 mg calcium chloride 0.0014 meq/ ml / potassium chloride 0.004 meq/ml / sodium chloride 0.103 meq/ml / sodium lactate 0.028 meq/ml injectable solution (12 sources) Start: 12-20-2021 lactated ringe rs infusion Start: 01-01-2021 End: 01-03-2021 Intravenous, at 100 mL/hr, C ONTINUOUS, Starting on Mon01/01/21 at 0315 Start: 10-28-2020 End: 10-30-2020 lactated ringers infusion Start: 06-11-2020 lactated ringe rs infusion Start: 11-17-2019 lactated ringe rs infusion Start: 11-08-2019 End: 11-08-2019 lactated ringers bolus 1,000 mL Start: 10-31-2019 End: 11-01-2019 lactated ringers infusion Start: 10-29-2019 End: 10-29-2019 lactated ringers bolus Start: 10-28-2019 End: 10-30-2019 Intravenous, at 125 mL/hr, C ONTINUOUS, Starting Mon10/28/19 at 1615 Start: 10-28-2019 End: 10-28-2019 lactated ringers infusion Start: 06-17-2019 lactated ringe rs infusion ciprofloxacin 250 mg oral tablet (3 sources) Quinolone Antimicrobial Start: 08-16-2022 End: 08-26-2022 take 1 tablet by mouth twice daily ciprofloxacin HCl (CIPRO) 250 mg tablet Indications: Kidney stones , Hematuria, unspecified type Take 1 tablet by mouth twice daily for 10 days. 20 tablet 0 08/16/2022 08/26/2022 Active Comment on above: Take 1 tablet by salvador twice daily for 10 days. diatrizoate meglumine-sodium (GASTROGRAFIN) 66-10 % solution 30 mL (2 sources) Start: 11-17-2019 diatrizoate meglumine-sodium (GASTROGRAFIN) 66-10 % solution 30 mL Start: 11-05-2019 diatrizoate me glumine-sodium (GASTROGRAFIN) 66-10 % solution 30 mL 1 ml diphenhydrAMINE hydrochloride 50 mg/ml cartridge (3 sources) Histamine-1 Receptor Antagonist Start: 12-20-2021 End: 12-20-2021 diphenhydrAMINE (BENADRYL) injection 12.5 mg Start: 06-11-2020 End: 06-11-2020 diphenhydrAMINE (BENADRYL) i njection 12.5 mg Start: 06-17-2019 End: 06-17-2019 diphenhydrAMINE (BENADRYL) i njection 12.5 mg 0.4 ml enoxaparin sodium 100 mg/ml prefilled syringe (8 sources) Low Molecular Weight Heparin Start: 01-01-2021 inject 40 mg by subcutaneous injection once daily 40 mg, Subcutaneous, DAILY, First dose on Mon01/01/21 at 0900 Start: 10-28-2020 enoxaparin (LO VENOX) injection 40 mg Start: 11-16-2019 enoxaparin (LO VENOX) injection 40 mg Start: 11-12-2019 End: 11-26-2019 enoxaparin (LOVENOX) 30 MG/0 .3ML injection Inject 0.3 mLs into the skin 2 times daily for 14 days 28 Syringe 0 11/12/2019 11/26/2019 Active Start: 11-01-2019 enoxaparin (LO VENOX) injection 40 mg Start: 10-28-2019 End: 10-30-2019 inject 40 mg by subcutaneous injection once daily 40 mg, Subcutaneous, DAILY, First dose on Mon10/28/19 at 1615 Pharmacy to dose if renal insufficiency present. Post-op estradiol 0.1 mg/ml vaginal cream (4 sources) Estrogen Start: 08-11-2020 estradiol (EST RACE VAGINAL) 0.1 MG/GM vaginal cream Indications: Vaginal ulcer , Vaginal atrophy Place [address] a pea size amount of cream on vagina once a day. 1 Tube 3 08/11/2020 Active 2 ml fentaNYL 0.05 mg/ml injection (6 sources) Opioid Agonist Start: 12-20-2021 fentaNYL (SUBL IMAZE) injection 50 mcg Start: 12-20-2021 fentaNYL (SUBL IMAZE) injection 25 mcg Start: 06-11-2020 fentaNYL (SUBL IMAZE) injection 50 mcg Start: 06-11-2020 fentaNYL (SUBL IMAZE) injection 25 mcg Start: 06-17-2019 fentaNYL (SUBL IMAZE) injection 50 mcg Start: 06-17-2019 fentaNYL (SUBL IMAZE) injection 25 mcg 1 ml hydrALAZINE hydrochloride 20 mg/ml injection (3 sources) Arteriolar Vasodilator Start: 10-29-2020 hydrALAZINE (APRESOLINE) injection 10 mg Start: 06-11-2020 hydrALAZINE (A PRESOLINE) injection 5 mg Start: 06-17-2019 hydrALAZINE (A PRESOLINE) injection 5 mg 1 ml HYDROmorphone hydrochloride 1 mg/ml cartridge (4 sources) Opioid Agonist Start: 06-11-2020 HYDROmorphone (DILAUDID) injection 0.5 mg Start: 06-11-2020 HYDROmorphone (DILAUDID) injection 0.25 mg Start: 06-17-2019 HYDROmorphone (DILAUDID) injection 0.5 mg Start: 06-17-2019 HYDROmorphone (DILAUDID) injection 0.25 mg hydrOXYzine pamoate 25 mg oral capsule (2 sources) Antihistamine Start: 10-30-2019 End: 11-01-2019 hydrOXYzine (VISTARIL) capsule 25 mg ibuprofen 600 mg oral tablet (5 sources) Nonsteroidal Anti-inflammatory Drug Start: 12-20-2021 take 1 tablet by mouth four times daily as needed for pain ibuprofen (ADVIL;MOTRIN) 600 MG tablet Take 1 tablet by mouth 4 times daily as needed for Pain 60 tablet 0 12/20/2021 Active Start: 06-17-2019 End: 11-20-2019 take 1 tablet by mouth four times daily as needed for pain ibuprofen (ADVIL;MOTRIN) 600 MG tablet Take 1 tablet by mouth 4 times daily as needed for Pain 120 tablet 0 06/17/2019 11/20/2019 Discontinued (Stop Taking at Discharge) iopamidol (ISOVUE-370) 76 % injection 75 mL (2 sources) Start: 11-16-2019 iopamidol (ISO JIGAR-370) 76 % injection 75 mL Start: 11-05-2019 iopamidol (ISO JIGAR-370) 76 % injection 75 mL labetalol (NORMODYNE;TRANDATE) injection 5 mg (1 source) Start: 12-20-2021 labetalol (NORMODYNE;TRANDATE) injection 5 mg 10 ml lidocaine hydrochloride 10 mg/ml injection (3 sources) Antiarrhythmic, Amide Local Anesthetic Start: 12-20-2021 End: 12-20-2021 lidocaine 1 % injection 1 mL Start: 06-11-2020 End: 06-11-2020 lidocaine PF 1 % injection 1 mL Start: 06-17-2019 End: 06-17-2019 lidocaine PF 1 % injection 1 mL 1 ml LORazepam 2 mg/ml injection (3 sources) Benzodiazepine Start: 12-20-2021 End: 12-20-2021 LORazepam (ATIVAN) injection 0.5 mg Start: 11-01-2019 End: 11-01-2019 LORazepam (ATIVAN) injection 0.5 mg Start: 11-01-2019 LORazepam (ATI VAN) injection 0.5 mg magnesium oxide 400 mg oral tablet (2 sources) Start: 11-03-2020 End: 11-05-2020 magnesium oxide (MAG-OX) tab let 400 mg Start: 10-28-2019 End: 11-01-2019 take 400 mg by mouth once daily 400 mg, Oral, DAILY, F irst dose on Mon10/28/19 at 1615 Melatonin (1 source) Start: 10-29-2019 melatonin ER t ablet 2 mg 1 ml meperidine hydrochloride 25 mg/ml cartridge (3 sources) Opioid Agonist Start: 12-20-2021 meperidine (DE MEROL) injection 12.5 mg Start: 06-11-2020 meperidine (DE MEROL) injection 12.5 mg Start: 06-17-2019 meperidine (DE MEROL) injection 12.5 mg 2 ml metoclopramide 5 mg/ml prefilled syringe (2 sources) Dopamine-2 Receptor Antagonist Start: 10-29-2020 metoclopramide (REGL AN) injection 10 mg Start: 11-08-2019 10 mg, Intrave nous, EVERY 6 HOURS, First dose on Mon11/08/19 at 1800 5 ml metoprolol tartrate 1 mg/ml injection (18 sources) beta-Adrenergic Rodrigo Start: 01-01-2021 2.5 mg , Intravenous, EVERY 6 HOURS, First dose on Mon01/01/21 at 0530 Start: 11-16-2019 End: 11-18-2019 metoprolol (LOPRESSOR) injec tion 5 mg Start: 11-12-2019 take 1 tablet by salvador th twice daily metoprolol tartrate (LOPRESSOR) 25 MG tablet Take 1 tablet by mouth 2 times daily 60 tablet 1 11/12/2019 Active Start: 11-11-2019 End: 11-12-2019 metoprolol tartrate (LOPRESS OR) tablet 12.5 mg Start: 11-02-2019 End: 11-11-2019 metoprolol (LOPRESSOR) injec tion 10 mg Start: 10-31-2019 End: 11-02-2019 metoprolol (LOPRESSOR) injec tion 5 mg Misc. Devices (SITZ BATH) ID SC (5 sources) Start: 06-17-2019 End: 06-17-2019 Misc. Devices (SITZ BATH) ID SC 1 Device by Does not apply route 2 times daily as needed (vulvar irritation) 1 each 0 06/17/2019 06/17/2019 Discontinued (REORDER) Start: 06-17-2019 Misc. Devices (SITZ BATH) MISC 1 Device by Does not apply route 2 times daily as needed (vulvar irritation) 1 each 0 06/17/2019 Active mometasone-formoterol (DULER A) 100-5 MCG/ACT inhaler 2 puff (1 source) Start: 10-30-2019 mometasone-for moterol (DULERA) 100-5 MCG/ACT inhaler 2 puff morphine sulfate (PF) inject ion 2 mg (3 sources) Start: 01-01-2021 morphine sulfa te (PF) injection 2 mg Start: 10-30-2020 morphine sulfa te (PF) injection 2 mg Start: 10-28-2019 morphine sulfa te (PF) injection 2 mg 2 ml ondansetron 2 mg/ml injection (10 sources) Serotonin-3 Receptor Antagonist Start: 12-20-2021 End: 12-20-2021 ondansetron (ZOFRAN) injection 4 mg Start: 12-31-2020 End: 01-01-2021 4 mg, Intravenous, EVERY 6 H OURS PRN, Nausea, Vomiting, Starting on Mon01/01/21 at 0306 Start: 11-03-2020 take 1 tablet by salvador th three times daily as needed for nausea ondansetron (ZOFRAN) 4 MG tablet Take 1 tablet by mouth 3 times daily as needed for Nausea or Vomiting 15 tablet 0 11/03/2020 Active Start: 06-11-2020 End: 06-11-2020 ondansetron (ZOFRAN) injecti on 4 mg Start: 10-31-2019 ondansetron (Z OFRAN) injection 4 mg Start: 06-17-2019 End: 06-17-2019 ondansetron (ZOFRAN) injecti on 4 mg ondansetron (ZOFRAN-ODT) disintegrating tablet 4 mg (1 source) Start: 10-28-2020 ondansetron (Z OFRAN-ODT) disintegrating tablet 4 mg oxyCODONE (4 sources) Opioid Agonist Start: 06-11-2020 End: 06-11-2020 oxyCODONE (ROXICODONE) immediate release tablet 5 mg Start: 11-09-2019 oxyCODONE (SANJAY ICODONE) immediate release tablet 5 mg Start: 06-17-2019 End: 06-21-2019 oxyCODONE (ROXICODONE) 5 MG immediate release tablet Indications: Vulvar dysplasia Take 1 tablet by mouth every 6 hours as needed for Pain for up to 4 days. Intended supply: 3 days. Take lowest dose possible to manage pain 15 tablet 0 06/17/2019 06/21/2019 Active Start: 06-17-2019 End: 06-17-2019 oxyCODONE (ROXICODONE) immed iate release tablet 5 mg 1 ml promethazine hydrochloride 25 mg/ml injection (4 sources) Phenothiazine Start: 06-11-2020 End: 06-11-2020 promethazine (PHENERGAN) injection 6.25 mg Start: 11-16-2019 promethazine ( PHENERGAN) tablet 12.5 mg Start: 10-31-2019 promethazine ( PHENERGAN) injection 6.25 mg Start: 06-17-2019 End: 06-17-2019 promethazine (PHENERGAN) inj ection 6.25 mg 5 ml sodium chloride 9 mg/ml injection (20 sources) Start: 12-20-2021 sodium chlorid e flush 0.9 % injection 5-40 mL Start: 12-20-2021 0.9 % sodium c hloride bolus Start: 12-20-2021 0.9 % sodium c hloride infusion Start: 12-20-2021 sodium chlorid e flush 0.9 % injection 5-40 mL Start: 01-01-2021 10 mL, Intrave nous, EVERY 12 HOURS SCHEDULED (2 times per day), First dose on Mon01/01/21 at 0900 Start: 01-01-2021 take 10 mL intraveno usly once as needed 10 mL, Intravenous, PRN, Line Care, After every IV line use, Starting on Mon01/01/21 at 0511 Start: 01-01-2021 take 25 mL intraveno usly every hour as needed 25 mL, Intravenous, at 100 mL/hr, PRN, If patient receiving piggyback infusions without ordered maintenance IV fluids or with frequent/long duration piggyback infusions, Starting on Mon01/01/21 at 0511 Administer at the same rate as the piggyback being infused. Start: 10-28-2020 0.9 % sodium c hloride infusion Start: 10-28-2020 sodium chlorid e flush 0.9 % injection 5-40 mL Start: 06-11-2020 sodium chlorid e flush 0.9 % injection 10 mL Start: 11-16-2019 End: 11-16-2019 0.9 % sodium chloride bolus Start: 11-16-2019 sodium chlorid e flush 0.9 % injection 10 mL Start: 11-16-2019 End: 11-17-2019 0.9 % sodium chloride infusi on Start: 11-08-2019 End: 11-09-2019 500 mL (9.26 mL/kg), Intravenous, at 500 mL/hr, Administer over 1 Hours, ONCE, Mon11/08/19 at 2200, For 1 dose Start: 11-01-2019 End: 11-03-2019 0.9 % sodium chloride infusi on Start: 11-01-2019 End: 11-05-2019 sodium chloride flush 0.9 % injection 10 mL Start: 11-01-2019 End: 11-05-2019 sodium chloride flush 0.9 % injection 10 mL Start: 10-30-2019 End: 10-31-2019 0.9 % sodium chloride infusi on Start: 10-29-2019 End: 10-30-2019 0.9 % sodium chloride bolus Start: 10-28-2019 End: 11-05-2019 10 mL, Intravenous, EVERY 12 HOURS SCHEDULED (2 times per day), First dose on Mon10/28/19 at 2100, Post-op Start: 10-28-2019 take 10 mL intravenous route o nce 10 mL, Intravenous, PRN, Line Care, Starting Mon10/28/19 at 1545 After every IV line use Start: 06-17-2019 sodium chlorid e flush 0.9 % injection 10 mL tiotropium 0.018 mg inhalant powder (3 sources) Anticholinergic Start: 11-16-2019 take 18 ug by inhalation once daily 18 mcg, Inhalation, DAILY, First dose on 11/16/19 at 0800 Substituted for umeclidinium (INCRUSE ELIPTA). Start: 11-04-2019 End: 11-12-2019 take 1 capsule by inhalation once daily tiotropium (SPIRIVA HANDIHALER) 18 MCG inhalation capsule Inhale 1 capsule into the lungs daily 90 capsule 1 11/12/2019 11/12/2019 Discontinued (Stop Taking at Discharge) 7 actuat umeclidinium 0.0625 mg/actuat dry powder inhaler (2 sources) Anticholinergic Start: 11-12-2019 take 1 puff(s) by inhalation once daily Umeclidinium Durand (INCRUSE ELLIPTA) 62.5 MCG/INH AEPB Inhale 1 puff into the lungs daily 30 each 1 11/12/2019 Active Completed/Discontinued Medications Medication Drug Class(es) Dates Sig (Normalized) Sig (Original) acetaminophen 500 mg oral tablet (8 sources) Start: 12-20-2021 End: 12-20-2021 acetaminophen (TYLENOL) tablet 500 mg Start: 06-11-2020 End: 06-11-2020 acetaminophen (TYLENOL) tabl et 500 mg Start: 11-16-2019 acetaminophen (TYLENOL) tablet 650 mg Start: 11-06-2019 acetaminophen (TYLENOL) tablet 650 mg Start: 10-28-2019 End: 11-06-2019 acetaminophen (TYLENOL) tabl et 1,000 mg Start: 06-17-2019 End: 06-17-2019 acetaminophen (TYLENOL) tabl et 1,000 mg acetaminophen 325 mg / oxyCODONE hydrochloride 5 mg oral tablet (9 sources) Opioid Agonist Start: 08-16-2022 oxyCODONE-acet aminophen (PERCOCET) 5-325 mg tablet Start: 08-16-2022 End: 08-23-2022 take 1-2 tablets by mouth every four hours as needed for pain oxyCODONE-acetaminophen (PERCOCET) 5-325 mg tablet Indications: Kidney stones , Hematuria, unspecified type Take 1-2 tablets by mouth every 4 hours as needed for pain for up to 7 days. 30 tablet 0 08/16/2022 08/23/2022 Active Start: 12-20-2021 End: 12-27-2021 oxyCODONE-acetaminophen (PER COCET) 5-325 MG per tablet Indications: Post-op pain Take 1 tablet by mouth every 6 hours as needed for Pain for up to 7 days. Intended supply: 7 days. Take lowest dose possible to manage pain 28 tablet 0 12/20/2021 12/27/2021 Active Start: 11-03-2020 End: 11-06-2020 oxyCODONE-acetaminophen (PER COCET) 5-325 MG per tablet Indications: SBO (small bowel obstruction) ([facility]) Take 1 tablet by mouth every 6 hours as needed for Pain for up to 3 days. Intended supply: 7 days. 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 Intended supply: 7 days. Take lowest dose possible to manage pain 28 tablet 0 06/11/2020 06/18/2020 Active Comment on above: Take 1-2 tablets by mouth every 4 hours as needed for pain for up to 7 days. alvimopan 12 mg oral capsule (1 source) Opioid Antagonist Start: 10-28-19 End: 11-04-19 take 1 capsule by mouth once daily 12 mg, Oral, DAILY, First dose on Mon10/28/19 at 1615, For 7 days Ok to open capsule and administer via the NGT while in place calcium chloride 0.001 meq/ml / glucose 50 mg/ml / potassium chloride 0.004 meq/ml / sodium chloride 0.103 meq/ml / sodium lactate 0.028 meq/ml injectable solution (1 source) Start: 11-01-19 End: 11-01-19 dextrose 5 % in lactated ringers infusion calcium gluconate 2 g in dextrose 5 % 100 mL IVPB (1 source) Start: 11-02-19 End: 11-02-19 calcium gluconate 2 g in dextrose 5 % 100 mL IVPB ceFAZolin 2000 mg injection (1 source) Cephalosporin Antibacterial Start: 06-17-19 End: 06-17-19 ceFAZolin (ANCEF) 2 g in dextrose 4 % 100 mL IVPB (premix) cefOXitin (MEFOXIN) 2 g in dextrose 5% 50 mL (mini-bag) (1 source) Start: 10-28-19 End: 10-29-19 2 g, Intravenous, EVERY 8 HOURS, 2 doses, First dose on Mon10/28/19 at 1700, Last dose on Mon10/29/19 at 0100, Post-op cephalexin 500 mg oral capsule (4 sources) Cephalosporin Antibacterial Start: 08-17-19 cephALEXin (KEFLEX) 500 mg capsule 5 ml dilTIAZem hydrochloride 5 mg/ml injection (1 source) Calcium Channel Rodrigo Start: 10-31-19 End: 11-01-19 dilTIAZem injection 10 mg docusate sodium 100 mg oral capsule (9 sources) Start: 09-22-19 docusate sodium (COLACE) 100 mg capsule Take by mouth. 0 09/21/2021 Active Start: 01-02-2021 End: 02-03-2021 take 1 capsule by mouth twice daily docusate sodium (COLACE, DULCOLAX) 100 MG CAPS Take 100 mg by mouth 2 times daily 60 capsule 0 01/04/2021 02/03/2021 Active Start: 11-12-2019 take 1 capsule by [facility] three times daily as needed for constipation docusate sodium (COLACE) 100 MG capsule Take 1 capsule by mouth 3 times daily as needed for Constipation 30 capsule 0 11/12/2019 Active Comment on above: Take by mouth. famotidine 20 mg oral tablet (6 sources) Histamine-2 Receptor Antagonist Start: 12-20-2021 End: 12-20-2021 famotidine (PEPCID) tablet 20 mg Start: 06-11-2020 End: 06-11-2020 famotidine (PEPCID) tablet 2 0 mg Start: 11-19-2019 famotidine (PE PCID) tablet 20 mg Start: 11-17-2019 End: 11-19-2019 famotidine (PEPCID) injectio n 20 mg Start: 10-28-2019 End: 10-28-2019 famotidine (PEPCID) tablet 2 0 mg Start: 06-17-2019 End: 06-17-2019 famotidine (PEPCID) tablet 2 0 mg 4 ml furosemide 10 mg/ml injection (7 sources) Loop Diuretic Start: 11-02-2019 End: 11-02-2019 furosemide (LASIX) injection 40 mg Start: 10-31-2019 End: 11-04-2019 furosemide (LASIX) injection 40 mg gabapentin 100 mg oral capsule (4 sources) Anti-epileptic Agent Start: 12-20-2021 End: 12-20-2021 gabapentin (NEURONTIN) capsule 100 mg Start: 06-11-2020 End: 06-11-2020 gabapentin (NEURONTIN) capsu le 100 mg Start: 10-28-2019 End: 10-28-2019 gabapentin (NEURONTIN) capsu le 300 mg Start: 06-17-2019 End: 06-17-2019 gabapentin (NEURONTIN) capsu le 300 mg 500 ml glucose 50 mg/ml / potassium chloride 0.02 meq/ml / sodium chloride 4.5 mg/ml injection (1 source) Start: 10-30-2020 End: 11-03-2020 Intravenous, at 50 mL/hr, CONTINUOUS, Starting on Mon10/30/20 at 2030 250 ml glucose 50 mg/ml / sodium chloride 4.5 mg/ml injection (1 source) Start: 11-08-2019 End: 11-08-2019 dextrose 5 % and 0.45 % sodium chloride infusion 3 ml heparin sodium, porcine 100 unt/ml prefilled syringe (4 sources) Unfractionated Heparin, Anti-coagulant Start: 11-01-2019 End: 11-05-2019 heparin flush 100 UNIT/ML injection 500 Units ipratropium bromide 0.2 mg/ml inhalant solution (5 sources) Anticholinergic Start: 10-30-2019 End: 11-11-2019 ipratropium (ATROVENT) 0.02 % nebulizer solution 0.5 mg labetalol hydrochloride 5 mg/ml injectable solution (5 sources) beta-Adrenergic Rodrigo Start: 10-30-2020 End: 10-30-2020 labetalol (NORMODYNE;TRANDATE) injection 5 mg Start: 10-29-2020 labetalol (NOR MODYNE;TRANDATE) injection 10 mg Start: 06-11-2020 labetalol (NOR MODYNE;TRANDATE) injection 5 mg Start: 10-31-2019 labetalol (NOR MODYNE;TRANDATE) injection 20 mg Start: 06-17-2019 labetalol (NOR MODYNE;TRANDATE) injection 5 mg 100 ml magnesium sulfate 40 mg/ml injection (2 sources) Start: 11-02-2020 End: 11-02-2020 magnesium sulfate 4000 mg in 100 mL IVPB premix Start: 11-19-2019 End: 11-19-2019 magnesium sulfate 2 g in 50 mL IVPB premix 1 ml morphine sulfate 4 mg/ml injection (4 sources) Opioid Agonist Start: 12-31-2020 End: 01-01-2021 morphine sulfate (PF) injection 4 mg Start: 10-28-2020 End: 10-30-2020 morphine sulfate (PF) inject ion 2 mg Start: 11-16-2019 morphine sulfa te (PF) injection 2 mg piperacillin 3000 mg / tazobactam 375 mg injection (3 sources) Penicillin-class Antibacterial, beta Lactamase Inhibitor Start: 11-16-2019 End: 11-20-2019 piperacillin-tazobactam (ZOSYN) 3.375 g in dextrose 50 mL IVPB extended infusion (premix) Start: 10-30-2019 End: 11-05-2019 piperacillin-tazobactam (ZOS YN) 3.375 g in dextrose 50 mL IVPB extended infusion (premix) PN-Adult 2 IN 1 Central Line (Custom) (11 sources) Start: 11-11-2019 End: 11-11-2019 PN-Adult 2 IN 1 Central Line (Custom) Start: 11-10-2019 End: 11-11-2019 PN-Adult 2 IN 1 Central Line (Custom) Start: 11-09-2019 End: 11-10-2019 PN-Adult 2 IN 1 Central Line (Custom) Start: 11-08-2019 End: 11-09-2019 PN-Adult 2 IN 1 Central Line (Custom) Start: 11-07-2019 End: 11-08-2019 PN-Adult 2 IN 1 Central Line (Custom) Start: 11-06-2019 End: 11-07-2019 PN-Adult 2 IN 1 Central Line (Custom) Start: 11-05-2019 End: 11-06-2019 PN-Adult 2 IN 1 Central Line (Custom) Start: 11-04-2019 End: 11-05-2019 PN-Adult 2 IN 1 Central Line (Custom) Start: 11-03-2019 End: 11-04-2019 PN-Adult 2 IN 1 Central Line (Custom) Start: 11-02-2019 End: 11-03-2019 PN-Adult 2 IN 1 Central Line (Custom) Start: 11-01-2019 End: 11-02-2019 PN-Adult 2 IN 1 Central Line (Custom) polyethylene glycol 3350 18842 mg powder for oral solution (16 sources) Osmotic Laxative Start: 10-30-2020 End: 12-03-2020 polyethylene glycol 3350 17 gram/dose powder Take 17 g by mouth. 0 12/03/2020 Active Start: 10-28-2020 End: 10-28-2020 polyethylene glycol (GLYCOLA X) packet 17 g Start: 11-18-2019 End: 11-20-2019 take 17 g by mouth twice daily, then take 17 g by mouth polyethylene glycol (GLYCOLAX) 17 GM/SCOOP powder Take 17 g by mouth 2 times daily 1530 g 1 11/18/2019 11/20/2019 Discontinued (REORDER) Start: 11-18-2019 End: 12-20-2019 take 17 g by mouth once daily, then take 17 g by mouth polyethylene glycol (GLYCOLAX) 17 GM/SCOOP powder Take 17 g by mouth daily 510 g 0 11/20/2019 12/20/2019 Active Start: 11-09-2019 End: 11-09-2019 polyethylene glycol (GLYCOLA X) packet 17 g Comment on above: Take 17 g by mouth. microencapsulated potassium chloride 10 meq extended release oral tablet (4 sources) Start: 11-19-2019 End: 11-19-2019 potassium chloride (KLOR-CON M) extended release tablet 40 mEq Start: 11-11-2019 End: 11-11-2019 potassium chloride 10 mEq/10 0 mL IVPB (Peripheral Line) Start: 11-03-2019 End: 11-03-2019 potassium chloride 20 mEq/50 mL IVPB (Central Line) Start: 11-02-2019 End: 11-02-2019 potassium chloride 20 mEq/50 mL IVPB (Central Line) traMADol hydrochloride 50 mg oral tablet (2 sources) Opioid Agonist Start: 11-12-2019 End: 11-20-2019 take 1 tablet by mouth every six hours as needed for pain, then take 1 tablet by mouth as needed for pain traMADol (ULTRAM) 50 MG tablet Indications: Bladder tumor Take 1 tablet by mouth every 6 hours as needed for Pain for up to 5 days. Intended supply: 3 days. Take lowest dose possible to manage pain 20 tablet 0 11/12/2019 11/20/2019 Discontinued (Stop Taking at Discharge) 10 ml tranexamic acid 100 mg/ml injection (2 sources) Antifibrinolytic Agent Start: 10-30-2019 End: 10-31-2019 tranexamic acid (CYKLOKAPRON) injection 540 mg vancomycin (VANCOCIN) 750 mg in dextrose 5 % 250 mL IVPB (2 sources) Start: 10-31-2019 End: 11-01-2019 vancomycin (VANCOCIN) 750 mg in dextrose 5 % 250 mL IVPB Start: 10-30-2019 End: 10-31-2019 vancomycin (VANCOCIN) 750 mg in dextrose 5 % 250 mL IVPB Problems Active Problems Problem Classification Problem Date Documented Date Episodic/Chronic Acute and unspecified renal failure (5 sources) Acute injury of kidney; Translations: [VICTOR HUGO (acute kidney injury) (HCC)] Onset: 10-29-2019 10-29-2019 Calculus of urinary tract (4 sources) Kidney stone; Translations: [Calculus of kidney] Onset: 08-16-2022 Episodic Cancer of bladder (18 sources) Malignant neoplasm of posterior wall of urinary bladder; Translations: [Malignant tumor of urinary bladder] Onset: 09-25-2019 09-25-2019 Chronic Diseases of white blood cells (9 sources) Leukocytosis; Translations: [Elevated white blood cell count, unspecified] Onset: 10-29-2019 10-29-2019 Chronic Fluid and electrolyte disorders (18 sources) Hypokalemia; Translations: [Hypovolemia] 11-11-2019 Episodic Genitourinary symptoms and ill-defined conditions (14 sources) Bernardino hematuria; Translations: [Gross hematuria] Onset: 06-11-2019 06-17-2019 Episodic Intestinal obstruction without hernia (20 sources) Small bowel obstruction; Translations: [Intestinal obstruction co-occurrent and due to decreased peristalsis] Onset: 10-31-2019 11-08-2019 Episodic Nutritional deficiencies (9 sources) Nutritional marasmus; Translations: [Unspecified severe protein-calorie malnutrition] 11-03-2019 Chronic Other female genital disorders (5 sources) Dysplasia of vulva; 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] 06-17-2019 Chronic Other female genital disorders (4 sources) Vaginal bleeding; Translations: [Abnormal uterine and vaginal bleeding, unspecified] 11-02-2019 Chronic Other female genital disorders (5 sources) Vaginal bleeding; Translations: [Vaginal bleeding] 11-02-2019 Episodic Other female genital disorders (5 sources) Dysplasia of vulva; Translations: [Dysplasia of vulva, unspecified] 06-17-2019 Episodic Other nervous system disorders (1 source) Postoperative pain ; Translations: [Other acute postprocedural pain] Episodic Other non-epithelial cancer of skin (7 sources) Anal intraepithelial neoplasia (AIN III); Translations: [Carcinoma in situ of anus and anal canal] Onset: 04-01-2020 04-01-2020 Chronic Other nutritional; endocrine; and metabolic disorders (9 sources) Hyperphosphatemia; Translations: [Other disorders of phosphorus metabolism] 11-08-2019 Chronic Past or Other Problems Problem Classification Problem Date Documented Da te Episodic/Chronic Acute and unspecified renal failure (4 sources) Acute injury of kidney; Translations: [Acute kidney failure, unspecified] Onset: 10-29-2019 10-29-2019 Episodic Acute posthemorrhagic anemia (9 sources) Anemia following acute postoperative blood loss; Translations: [Acute posthemorrhagic anemia] Onset: 10-30-2019 10-30-2019 Episodic Cancer; other and unspecified primary (6 sources) H/O: malignant neoplasm; Translations: [Personal history of malignant neoplasm of bladder] Onset: 04-01-2020 04-01-2020 Episodic Cardiac dysrhythmias (9 sources) Tachycardia; Translations: [Tachycardia, unspecified] Onset: 10-29-2019 10-29-2019 Episodic Neoplasms of unspecified nature or uncertain behavior (12 sources) Neoplasm of bladder; Translations: [Neoplasm of unspecified behavior of bladder] Onset: 06-11-2019 06-17-2019 Episodic Other gastrointestinal disorders (9 sources) Hemorrhage into peritoneal cavity; Translations: [Hemoperitoneum] Onset: 10-31-2019 10-31-2019 Episodic Other injuries and conditions due to external causes (9 sources) Systemic inflammatory response syndrome; Translations: [Systemic inflammatory response syndrome (SIRS) of non-infectious origin without acute organ dysfunction] Onset: 10-30-2019 10-30-2019 Episodic Other lower respiratory disease (9 sources) Hypoxia; Translations: [Hypoxemia] Onset: 10-30-2019 10-30-2019 Episodic Other screening for suspected conditions (not mental disorders or infectious disease) (4 sources) Patient encounter status; Translations: [Encounter for screening for malignant neoplasm of colon] Onset: 04-01-2020 Resolved: 07-11-2020 07-11-2020 Episodic Pleurisy; pneumothorax; pulmonary collapse (9 sources) Bilateral pleural effusion; Translations: [Pleural effusion, not elsewhere classified] Onset: 10-31-2019 10-31-2019 Episodic Unclassified (2 sources) Patient encounter status; Translations: [Encounter for screening colonoscopy] Onset: 04-01-2020 Resolved: 05-01-2020 05-01-2020 Results Test Name Value Interpretation Reference Range Facility ABDOMEN 2 VIEWSon 01-30-2023 ABDOMEN 2 VIEWS [place] [address] Patient: LINDA KIM Phone#: : [phone] Age: 67 Gender: F Pt. Type: In Account: [id number] Location: [facility] Ordering: JOE HUSAIN Exam Date: 01/30/2023/5:18 Family Phys: BEATRICE IRAHETA Charge Code: 219410 Physician: [place] Order #: [id number] Dose#: This report includes an Addendum and supersedes previous reports for this exam. PROCEDURE: ABDOMEN 2 VIEWS COMPARISON: [facility], CT, ABDOMEN/PELVIS W CON, 01/26/2023, 23:20. INDICATIONS: Abdominal pain. FINDINGS: BOWEL GAS PATTERN: A dilated segment bowel is present in the mid lower abdomen consistent with partial small bowel obstruction. Small bowel diameter is 5 point centimeters. Gas is seen to the rectum. CALCIFICATIONS: None significant. OTHER: Negative. No abnormal gaseous collections. CONCLUSION: 1. Dilated segment bowel in the mid lower abdomen consistent with partial small bowel obstruction. Dictated by: Doreen Tapia MD on 01/30/2023 at 8:16 Approved by: Doreen Tapia MD on 01/30/2023 at 8:31 ADDENDUM: Multiple punctate calcifications are present in the mid upper abdomen, likely chronic pancreatitis. Dictated by: Droeen Tapia MD on 01/30/2023 at 13:58 Approved by: Doreen Tapia MD on 01/30/2023 at 13:58 Normal [facility] BMP with eGFRon 01-30-2023 AGE 67 years Normal [facility] Comment on above: Performed By: #### 2 64292 #### [address] [address] Anion gap [Moles/Vol] 18 mmol/L Normal 10 - 20 [facility] Comment on above: Performed By: #### 2 01398 #### [place] [id number] BMP with eGFR Normal [facility] Comment on above: Result Comment: BASI C METABOLIC PANEL Performed By: #### 2 16538 #### [address] [address] Calcium [Mass/Vol] 8.4 mg/dL Low 8.5 - 10.1 [facility] Comment on above: Performed By: #### 2 51020 #### [address] [address] Chloride [Moles/Vol] 101 mmol/L Normal 98 - 107 [facility] Comment on above: Performed By: #### 2 74296 #### [address] [address] CO2 [Moles/Vol] 22.2 mmol/L Normal 21.0 - 32.0 [facility] Comment on above: Performed By: #### 2 79129 #### [address] [address] Creatinine [Mass/Vol] 0.61 mg/dL Normal 0.55 - 1.02 [facility] Comment on above: Performed By: #### 2 42106 #### [facility],[address] [place], [place] [id number] GFR/1.73 sq M.predicted among non-blacks MDRD (S/P/Bld) [Vol rate/Area] mL/min/{1.73_m2} Normal 60 - 999 [facility] Comment on above: Performed By: #### 2 23001 #### [facility],[address] [place] [address] Result Comment: ACCO RDING TO THE NATIONAL KIDNEY DISEASE EDUCATION PROGRAM(NKDE), A NORMAL eGFR IS A VALUE GREATER THAN OR EQUAL TO 60 ML/MIN/1.73 SQ METERS. CHRONIC KIDNEY DISEASE: <60mL/MIN/1.73 SQ METERS KIDNEY FAILURE: <15mL/MIN/1.73 SQ METERS THIS TEST SHOULD ONLY BE USED FOR PATIENTS 18 YEARS OF AGE AND OLDER. Glucose [Mass/Vol] 96 mg/dL Normal 74 - 106 [facility] Comment on above: Performed By: #### 2 50177 #### [place] [id number] Potassium [Moles/Vol] 3.9 mmol/L Normal 3.5 - 5.1 [facility] Comment on above: Performed By: #### 2 83573 #### [facility],[address] [place], [place] [id number] Sodium [Moles/Vol] 137 mmol/L Normal 136 - 145 [facility] Comment on above: Performed By: #### 2 19162 #### [place] [id number] Urea nitrogen [Mass/Vol] 6 mg/dL Low 7 - 18 [facility] Comment on above: Performed By: #### 2 82889 #### [place] [id number] CBC + DIFFon 09-11-2023 Baso # 0.00 x10EE3/UL Normal 0.00 - 0.10 [facility] Comment on above: Performed By: #### 2 46090 #### [facility],[address] [place] [address] Basophils/100 WBC (Bld) 0.7 % Normal 0.0 - 2.0 [facility] Comment on above: Performed By: #### 2 62642 #### [facility],[address] [place] [address] CBC + DIFF Normal [facility] Comment on above: Result Comment: CBC- COMPLETE BLOOD COUNT Performed By: #### 2 06198 #### [facility],[address] [place] [address] EO # 0.20 x10EE3/UL Normal 0.00 - 0.50 [facility] Comment on above: Performed By: #### 2 84157 #### [facility],[address] [place] [address] Eosinophils/100 WBC (Bld) 3.5 % Normal 0.0 - 7.0 [facility] Comment on above: Performed By: #### 2 69841 #### [facility],[address] [place] [address] Erythrocyte distribution width (RBC) [Ratio] 14.9 % Normal 12.0 - 15.6 [facility] Comment on above: Performed By: #### 2 16922 #### [facility],[address] [place] [address] Hematocrit (Bld) [Volume fraction] 37.6 % Normal 34.0 - 46.0 [facility] Comment on above: Performed By: #### 2 64955 #### [facility],[address] [place] [address] Hemoglobin (Bld) [Mass/Vol] 13.0 g/dL Normal 12.0 - 16.0 [facility] Comment on above: Performed By: #### 2 47544 #### [facility],[address] [place] [address] Lymph # 0.60 x10EE3/UL Low 0.80 - 2.80 [facility] Comment on above: Performed By: #### 2 66048 #### [facility],[address] [place] [address] Lymphocytes/100 WBC (Bld) 13.8 % Low 20.0 - 45.0 [facility] Comment on above: Performed By: #### 2 94104 #### [facility],[address] [place] [address] MANUAL DIFF N/A Normal [facility] Comment on above: Performed By: #### 2 94179 #### [facility],[address] [place] [address] MCH (RBC) [Entitic mass] 30 pg Normal 27 - 33 [facility] Comment on above: Performed By: #### 2 88370 #### [facility],[address] [place] [address] MCHC 35 X10 3 Normal 32 - 36 [facility] Comment on above: Performed By: #### 2 93905 #### [facility],[address] [place], [place] [phone] MCV (RBC) [Entitic vol] 86 fL Normal 80 - 99 [facility] Comment on above: Performed By: #### 2 67506 #### [facility],[address] [place] [address] Dale # 0.40 x10EE3/UL Normal 0.20 - 1.00 [facility] Comment on above: Performed By: #### 2 52598 #### [facility],[address] [place] [address] MONOS % 9.0 % Normal 0.0 - 10.0 [facility] Comment on above: Performed By: #### 2 15272 #### [facility],[address] [place] [address] Morphology Ramin (Bld) [Interp] N/A Normal [facility] Comment on above: Result Comment: {CD] Performed By: #### 2 15547 #### [facility],[address] [place] [address]86 Neut # 3.30 x10EE3/UL Normal 1.50 - 7.10 [facility] Comment on above: Performed By: #### 2 57818 #### [facility],[address] [place] [address] Neutrophils/100 WBC (Bld) 73.0 % Normal 46.0 - 76.0 [facility] Comment on above: Performed By: #### 2 35816 #### [facility],[address] [place] [address] PLATELET 288 x10EE3/UL Normal 150 - 450 [facility] Comment on above: Performed By: #### 2 26167 #### [facility],[address] [place] [address]113 Platelet mean volume (Bld) [Entitic vol] 6.9 fL Normal 6.6 - 10.5 [facility] Comment on above: Result Comment: AUTO MATED DIFFERENTIAL Performed By: #### 2 36147 #### [facility],[address] [place] [address]509 RBC 4.38 x 10EE6/UL Normal 4.10 - 5.30 [facility] Comment on above: Performed By: #### 2 60963 #### [facility],[address] [place] [address] WBC 4.5 x 10EE3/UL Normal 4.5 - 10.8 [facility] Comment on above: Performed By: #### 2 59868 #### [facility],[address] [place] [address] CBC + DIFFon 01-29-2023 Baso # 0.00 x10EE3/UL Normal 0.00 - 0.10 [facility] Comment on above: Performed By: #### 2 77181 #### [facility],[address] [place] [address] Basophils/100 WBC (Bld) 0.2 % Normal 0.0 - 2.0 [facility] Comment on above: Performed By: #### 2 22034 #### [facility],[address] [place] [address] CBC + DIFF Normal [facility] Comment on above: Result Comment: CBC- COMPLETE BLOOD COUNT Performed By: #### 2 24007 #### [facility],[address] [place] [address] EO # 0.10 x10EE3/UL Normal 0.00 - 0.50 [facility] Comment on above: Performed By: #### 2 54679 #### [facility],[address] [place] [address] Eosinophils/100 WBC (Bld) 3.8 % Normal 0.0 - 7.0 [facility] Comment on above: Performed By: #### 2 42708 #### [facility],[address] [place] [address] Erythrocyte distribution width (RBC) [Ratio] 14.8 % Normal 12.0 - 15.6 [facility] Comment on above: Performed By: #### 2 26782 #### [facility],[address] [place] [address] Hematocrit (Bld) [Volume fraction] 38.7 % Normal 34.0 - 46.0 [facility] Comment on above: Performed By: #### 2 63912 #### [facility],[address] [place] [address] Hemoglobin (Bld) [Mass/Vol] 12.9 g/dL Normal 12.0 - 16.0 [facility] Comment on above: Performed By: #### 2 10513 #### [facility],[address] [place] [address] Lymph # 0.50 x10EE3/UL Low 0.80 - 2.80 [facility] Comment on above: Performed By: #### 2 84043 #### [facility],[address] [place] [address] Lymphocytes/100 WBC (Bld) 12.1 % Low 20.0 - 45.0 [facility] Comment on above: Performed By: #### 2 06750 #### [facility],[address] [place] [address] MANUAL DIFF N/A Normal [facility] Comment on above: Performed By: #### 2 45030 #### [facility],[address] [place] [address] MCH (RBC) [Entitic mass] 29 pg Normal 27 - 33 [facility] Comment on above: Performed By: #### 2 90980 #### [facility],[address] [place] [address] MCHC 33 X10 3 Normal 32 - 36 [facility] Comment on above: Performed By: #### 2 02926 #### [facility],[address] [place] [address] MCV (RBC) [Entitic vol] 88 fL Normal 80 - 99 [facility] Comment on above: Performed By: #### 2 48622 #### [facility],[address] [place] [address] Dale # 0.30 x10EE3/UL Normal 0.20 - 1.00 [facility] Comment on above: Performed By: #### 2 56716 #### [facility],[address] [place] [address] MONOS % 9.2 % Normal 0.0 - 10.0 [facility] Comment on above: Performed By: #### 2 21182 #### [facility],[address] [place] [address] Morphology Ramin (Bld) [Interp] N/A Normal [facility] Comment on above: Result Comment: {CD] Performed By: #### 2 09982 #### [facility],[address] [place] [address]168 Neut # 2.80 x10EE3/UL Normal 1.50 - 7.10 [facility] Comment on above: Performed By: #### 2 90012 #### [facility],[address] [place] [address] Neutrophils/100 WBC (Bld) 74.7 % Normal 46.0 - 76.0 [facility] Comment on above: Performed By: #### 2 21571 #### [facility],[address] [place] [address] 23284 PLATELET 259 x10EE3/UL Normal 150 - 450 [facility] Comment on above: Performed By: #### 2 04389 #### [facility],[address] [place] [address] 84568 Platelet mean volume (Bld) [Entitic vol] 7.4 fL Normal 6.6 - 10.5 [facility] Comment on above: Result Comment: AUTO MATED DIFFERENTIAL Performed By: #### 2 25114 #### [facility],[address] [place] [address] RBC 4.38 x 10EE6/UL Normal 4.10 - 5.30 [facility] Comment on above: Performed By: #### 2 86964 #### [facility],[address] [place] [address] 79893 WBC 3.7 x 10EE3/UL Low 4.5 - 10.8 [facility] Comment on above: Performed By: #### 2 91563 #### [facility],[address] [place] [address] 51055 CMP with eGFRon 01-29-2023 AGE 67 years Normal [facility] Comment on above: Performed By: #### 2 19759 #### [facility],[address] [place] [address] 31832 Albumin [Mass/Vol] 2.6 g/dL Low 3.4 - 5.0 [facility] Comment on above: Performed By: #### 2 20440 #### [facility],[address] [place] [address] Albumin/Globulin [Mass ratio] 0.8 {ratio} Low 0.9 - 1.6 [facility] Comment on above: Performed By: #### 2 42203 #### [facility],[address] [place] [address] 13385 ALK PHOS 91 U/L Normal 46 - 116 [facility] Comment on above: Performed By: #### 2 28156 #### [facility],[address] [place] [address] 96831 ALT [Catalytic activity/Vol] 21 U/L Normal 14 - 59 [facility] Comment on above: Performed By: #### 2 72018 #### [facility],[address] [place] [address] 30638 Anion gap [Moles/Vol] 9 mmol/L Low 10 - 20 [facility] Comment on above: Performed By: #### 2 28968 #### [facility],[address] [place] [address] 27536 AST [Catalytic activity/Vol] 16 U/L Normal 13 - 39 [facility] Comment on above: Performed By: #### 2 33691 #### [facility],[address] [place] [address] 19520 B/C RATIO 13 ratio Normal 0 - 30 [facility] Comment on above: Performed By: #### 2 18707 #### [facility],[address] [place] [address]108 Bilirubin [Mass/Vol] 0.5 mg/dL Normal 0.2 - 1.0 [facility] Comment on above: Performed By: #### 2 49070 #### [facility],[address] [place] [address]80 Calcium [Mass/Vol] 8.3 mg/dL Low 8.5 - 10.1 [facility] Comment on above: Performed By: #### 2 94168 #### [facility],[address] [place], [place] [address] Chloride [Moles/Vol] 103 mmol/L Normal 98 - 107 [facility] Comment on above: Performed By: #### 2 17491 #### [facility],[address] [place], [place] [phone] CMP with eGFR Normal [facility] Comment on above: Result Comment: COMP REHENSIVE METABOLIC PANEL Performed By: #### 2 14908 #### [place] [address] CO2 [Moles/Vol] 26.1 mmol/L Normal 21.0 - 32.0 [facility] Comment on above: Performed By: #### 2 17442 #### [place] [id number] Creatinine [Mass/Vol] 0.64 mg/dL Normal 0.55 - 1.02 [facility] Comment on above: Performed By: #### 2 30422 #### [place] [id number] GFR/1.73 sq M.predicted among non-blacks MDRD (S/P/Bld) [Vol rate/Area] mL/min/{1.73_m2} Normal 60 - 999 [facility] Comment on above: Performed By: #### 2 30025 #### [facility],[address] [place] [address] Result Comment: ACCO RDING TO THE NATIONAL KIDNEY DISEASE EDUCATION PROGRAM(NKDE), A NORMAL eGFR IS A VALUE GREATER THAN OR EQUAL TO 60 ML/MIN/1.73 SQ METERS. CHRONIC KIDNEY DISEASE: <60mL/MIN/1.73 SQ METERS KIDNEY FAILURE: <15mL/MIN/1.73 SQ METERS THIS TEST SHOULD ONLY BE USED FOR PATIENTS 18 YEARS OF AGE AND OLDER. Globulin (S) [Mass/Vol] 3.3 g/dL Normal 1.5 - 3.8 [facility] Comment on above: Performed By: #### 2 30869 #### [address] [address] Glucose [Mass/Vol] 99 mg/dL Normal 74 - 106 [facility] Comment on above: Performed By: #### 2 76207 #### [address] [address] Potassium [Moles/Vol] 3.6 mmol/L Normal 3.5 - 5.1 [facility] Comment on above: Performed By: #### 2 93287 #### [address] [address] Protein [Mass/Vol] 5.9 g/dL Low 6.4 - 8.2 [facility] Comment on above: Performed By: #### 2 47533 #### [address] [address] Sodium [Moles/Vol] 134 mmol/L Low 136 - 145 [facility] Comment on above: Performed By: #### 2 56609 #### [address] [address] Urea nitrogen [Mass/Vol] 8 mg/dL Normal 7 - 18 [facility] Comment on above: Performed By: #### 2 18155 #### [address] [address] ABDOMEN 1 VIEWon 01-28-2023 ABDOMEN 1 [place] [address] Patient: LINDA KIM Phone#: : [phone] Age: 67 Gender: F Pt. Type: In Account: [id number] Location: 010 Ordering: JOE HUSAIN Exam Date: 01/28/2023/12:07 Family Phys: BEATRICE IRAHETA Charge Code: [id number] Physician: [place] Order #: [id number] Dose#: PROCEDURE: ABDOMEN 1 VIEW COMPARISON: None. INDICATIONS: Ileus. FINDINGS: BOWEL GAS PATTERN: There is dilatation of mid abdominal small bowel with diameter of 6.4 centimeters consistent with obstruction. There is air seen at the rectum. CALCIFICATIONS: None significant. OTHER: Negative. No abnormal gaseous collections. CONCLUSION: 1. Findings consistent with small bowel obstruction. Diameter of mid abdominal small bowel is 6.4 centimeters. Dictated by: Doreen Tapia MD on 01/29/2023 at 8:33 Approved by: Doreen Tapia MD on 01/29/2023 at 8:34 Normal [facility] BMP with eGFRon 01-28-2023 AGE 67 years Normal [facility] Comment on above: Performed By: #### 2 21077 #### [facility],[address] [place] [address] 87534 Anion gap [Moles/Vol] 14 mmol/L Normal 10 - 20 [facility] Comment on above: Performed By: #### 2 49600 #### [facility],[address] [place] [address] 56618 BMP with eGFR Normal [facility] Comment on above: Result Comment: BASI C METABOLIC PANEL Performed By: #### 2 08576 #### [facility],[address] [place] [address] 14206 Calcium [Mass/Vol] 8.4 mg/dL Low 8.5 - 10.1 [facility] Comment on above: Performed By: #### 2 48505 #### [facility],[address] [place] [address] 43386 Chloride [Moles/Vol] 102 mmol/L Normal 98 - 107 [facility] Comment on above: Performed By: #### 2 21515 #### [facility],[address] [place] [address] 48275 CO2 [Moles/Vol] 24.3 mmol/L Normal 21.0 - 32.0 [facility] Comment on above: Performed By: #### 2 40095 #### [facility],[address] [place] [address] 27703 Creatinine [Mass/Vol] 0.79 mg/dL Normal 0.55 - 1.02 [facility] Comment on above: Performed By: #### 2 27655 #### [facility],[address] [place] [address] 22569 GFR/1.73 sq M.predicted among non-blacks MDRD (S/P/Bld) [Vol rate/Area] mL/min/{1.73_m2} Normal 60 - 999 [facility] Comment on above: Performed By: #### 2 20907 #### [facility],[address] [place] [address] 76397 Result Comment: ACCO RDING TO THE NATIONAL KIDNEY DISEASE EDUCATION PROGRAM(NKDE), A NORMAL eGFR IS A VALUE GREATER THAN OR EQUAL TO 60 ML/MIN/1.73 SQ METERS. CHRONIC KIDNEY DISEASE: <60mL/MIN/1.73 SQ METERS KIDNEY FAILURE: <15mL/MIN/1.73 SQ METERS THIS TEST SHOULD ONLY BE USED FOR PATIENTS 18 YEARS OF AGE AND OLDER. Glucose [Mass/Vol] 124 mg/dL High 74 - 106 [facility] Comment on above: Performed By: #### 2 20070 #### [facility],[address] [place] [address] 17535 Potassium [Moles/Vol] 4.0 mmol/L Normal 3.5 - 5.1 [facility] Comment on above: Performed By: #### 2 01389 #### [facility],[address] [place] [address] 11220 Sodium [Moles/Vol] 136 mmol/L Normal 136 - 145 [facility] Comment on above: Performed By: #### 2 93300 #### [facility],[address] [place] [address] Urea nitrogen [Mass/Vol] 10 mg/dL Normal 7 - 18 [facility] Comment on above: Performed By: #### 2 60105 #### [facility],[address] [place] [address] CBC + DIFFon 01-28-2023 Baso # 0.00 x10EE3/UL Normal 0.00 - 0.10 [facility] Comment on above: Performed By: #### 2 42195 #### [facility],[address] [place] [address] Basophils/100 WBC (Bld) 0.2 % Normal 0.0 - 2.0 [facility] Comment on above: Performed By: #### 2 11758 #### [facility],[address] [place] [address] CBC + DIFF Normal [facility] Comment on above: Result Comment: CBC- COMPLETE BLOOD COUNT Performed By: #### 2 70309 #### [facility],[address] [place] [address] EO # 0.10 x10EE3/UL Normal 0.00 - 0.50 [facility] Comment on above: Performed By: #### 2 00410 #### [facility],[address] [place] [address] Eosinophils/100 WBC (Bld) 1.2 % Normal 0.0 - 7.0 [facility] Comment on above: Performed By: #### 2 35920 #### [place] [address] Erythrocyte distribution width (RBC) [Ratio] 15.3 % Normal 12.0 - 15.6 [facility] Comment on above: Performed By: #### 2 82626 #### [facility],[address] [place] [address] Hematocrit (Bld) [Volume fraction] 41.3 % Normal 34.0 - 46.0 [facility] Comment on above: Performed By: #### 2 24532 #### [facility],[address] [place], [place] [address] Hemoglobin (Bld) [Mass/Vol] 13.7 g/dL Normal 12.0 - 16.0 [facility] Comment on above: Performed By: #### 2 93788 #### [facility],[address] [place] [address] Lymph # 0.40 x10EE3/UL Low 0.80 - 2.80 [facility] Comment on above: Performed By: #### 2 45276 #### [facility],[address] [place], [place] [address] Lymphocytes/100 WBC (Bld) 7.5 % Low 20.0 - 45.0 [facility] Comment on above: Performed By: #### 2 07375 #### [facility],[address] [place], [place] [address] MANUAL DIFF N/A Normal [facility] Comment on above: Performed By: #### 2 99660 #### [facility],[address] [place], [place] [address] MCH (RBC) [Entitic mass] 30 pg Normal 27 - 33 [facility] Comment on above: Performed By: #### 2 73362 #### [facility],[address] [place] [address] 23524 MCHC 33 X10 3 Normal 32 - 36 [facility] Comment on above: Performed By: #### 2 80154 #### [facility],[address] [place] [address] 21242 MCV (RBC) [Entitic vol] 89 fL Normal 80 - 99 [facility] Comment on above: Performed By: #### 2 80312 #### [facility],[address] [place], [place] [address] Dale # 0.40 x10EE3/UL Normal 0.20 - 1.00 [facility] Comment on above: Performed By: #### 2 87459 #### [facility],[address] [place] [address] 77132 MONOS % 8.1 % Normal 0.0 - 10.0 [facility] Comment on above: Performed By: #### 2 17899 #### [facility],[address] [place] [address] Morphology Ramin (Bld) [Interp] N/A Normal [facility] Comment on above: Result Comment: {CD] Performed By: #### 2 56734 #### [facility],[address] [place] [address] Neut # 4.60 x10EE3/UL Normal 1.50 - 7.10 [facility] Comment on above: Performed By: #### 2 77865 #### [facility],[address] [place] [address] Neutrophils/100 WBC (Bld) 83.0 % High 46.0 - 76.0 [facility] Comment on above: Performed By: #### 2 73431 #### [facility],[address] [place] [address] PLATELET 302 x10EE3/UL Normal 150 - 450 [facility] Comment on above: Performed By: #### 2 07210 #### [facility],[address] [place] [address] Platelet mean volume (Bld) [Entitic vol] 7.1 fL Normal 6.6 - 10.5 [facility] Comment on above: Result Comment: AUTO MATED DIFFERENTIAL Performed By: #### 2 95707 #### [facility],[address] [place] [address] RBC 4.63 x 10EE6/UL Normal 4.10 - 5.30 [facility] Comment on above: Performed By: #### 2 83602 #### [facility],[address] [place] [address] 49751 WBC 5.5 x 10EE3/UL Normal 4.5 - 10.8 [facility] Comment on above: Performed By: #### 2 40343 #### [facility],[address] [place] [address] 67983 EMERGENCY REPORTon 3 EMERGENCY REPORT [facility] EMERGENCY ROOM REPORT NAME ACCOUNT SEX AGE ADMIT DISCHARGE PT MED. RECORD# NUMBER DATE DATE TYPE LINDA KIM [id number] Kristyn 67 01/27/23 1 [id number] ROOM: 310 DATE OF : 1955 DICTATING PHYSICIAN: Scar Young ADDENDUM DIAGNOSTIC DATA: White count was normal at 8.6, hemoglobin 15.2, hematocrit 45.2, and platelet count 352,000. Sodium was 132, potassium 4.6, chloride 98, CO2 of 24.8, BUN 11, creatinine 0.9, and glucose 128. AST is 28, ALT 54, alkaline phosphatase 128, and total bilirubin 0.4. Lipase was normal at 52. CRP was normal at 0.7. Anion gap was normal at 14. CT scan of the abdomen and pelvis did show dilated small bowel loops having a diameter of 3.17 cm with occasional air fluid levels. Dilated small bowel loops in the left upper abdominal quadrant have a diameter up to 4.26 cm. Findings are consistent with an underlying partial small bowel obstruction. No herniated bowel segment. No abscess or hematoma. No free air or abscess. No features to suggest acute appendicitis. EMERGENCY DEPARTMENT COURSE AND TREATMENT: I have continued to give the patient IV fluids here. I have only had to medicate her for pain once. We had talked to the patient about transferring her back up to [facility] because that is where she has had all of her previous surgeries. She stated that she would prefer to stay here because usually this will resolve non-surgically. Clinically, she looks very good. Her abdomen is soft and minimally tender. I have not had her vomit once here in the Emergency Department so far. I did discuss the case with Dr. Sanjay Blas, the hospitalist liquefaction supervisor [facility]. He was agreeable to admit her to his service as an observation to medical-surgical and keep her NPO with IV hydration. We will see if this resolves. The patient states it has in the past. At this point, I discussed this with the patient and she is agreeable and prefers to stay here. DIAGNOSIS: Partial small bowel obstruction. Dictated By: Scar Young DO 01/27/23 02:26 JOB #: [id number] Transcribed By: vanesa 01/27/23 11:30 Electronically signed by: E-Sign: Dr. Scar Young D.O. 01/27/23 23:55 Page 1 of 1 LINDA KIM Emergency Room Report Normal [facility] EMERGENCY REPORT [facility] EMERGENCY ROOM REPORT NAME ACCOUNT SEX AGE ADMIT DISCHARGE PT MED. RECORD# NUMBER DATE DATE TYPE LINDA KIM [id number] F 67 01/27/23 1 [id number] ROOM: 310 DATE OF : 1955 DICTATING PHYSICIAN: Scar Young Date seen is January 26, 2023 at 2230 hours. HISTORY OF PRESENT ILLNESS: The patient is a 67-year-old female complaining of periumbilical region abdominal pain that started around 5 p.m. this afternoon. The pain has been gradually getting worse to the point that it is now a 9 on a severity scale of 1 to 10. She describes the pain as sharp in nature, mildly worse with movement. The pain does not radiate through to her back. She has complained of some nausea, and she did vomit once. Her last bowel movement was this morning. No blood in the stool. She is on MiraLAX and Colace to prevent constipation. She has had a bowel obstruction in the past. Usually she is seen here, and then transferred to [facility]. The patient tells me that one of those bowel obstructions was treated nonsurgically and the other one was treated with surgery. The patient has had previous kidney stones fore as well. She does have a urologist at [facility]. PCP is Dr. Beatrice Iraheta. PAST MEDICAL HISTORY: The patient does have a history of bladder cancer. She had her bladder surgically removed. She does have a urostomy bag now. Her Urologist at [facility] is Dr. Finn. She did see her cancer doctor, Dr. Chavez, today in the office, and got a good report and she does not have to go back for 6 months. PAST SURGICAL HISTORY: Past surgeries include an appendectomy, hysterectomy, and urostomy. She had a previous bowel resection for the stoma from her urostomy, and she states in that area of the urostomy is usually where she gets the bowel obstruction. ALLERGIES: No known drug allergies. SOCIAL HISTORY: The patient is a smoker, 1 pack per day. She denies any alcohol or drug use. She lives at home with family. REVIEW OF SYSTEMS: The patient denies any fever, sweats, or chills. She denies any chest pain, shortness of breath, cough, sputum, wheezing. She does complain of periumbilical abdominal pain with associated nausea and vomiting. She denies any diarrhea, constipation, melena, hematochezia. She denies any headache, numbness, unsteady gait. She does admit to some mild diffuse generalized weakness and fatigue. Se denies any neck or back pain, joint pain, skin rash or swelling, hives, hayfever, or swollen glands. Further review of systems is negative. Page 1 of 2 LINDA KIM Emergency Room Report LINDA KIM : 1955 PHYSICAL EXAMINATION: VITAL SIGNS: Temperature is 97.9, pulse 86, respiratory rate 18, blood pressure 155/92, pulse oximetry 98% on room air, weight 106 pounds. GENERAL APPEARANCE: The patient is alert and oriented x3. She presently appears in no acute distress. She is pleasant and cooperative. She makes eye contact. She speaks in full sentences. HEENT: Head appears atraumatic. Pupils are equal and reactive to light. Red reflex intact bilaterally. Extraocular muscles are intact. No conjunctival injection. Nose: Exhibits no rhinorrhea or epistaxis. Mouth: Mucous membranes are mildly dry. No pharyngeal erythema. Uvula is midline and elevates. NECK: Neck is supple. Trachea is midline. No JVD or lymphadenopathy. No posterior cervical tenderness. No nuchal rigidity. LUNGS: Clear to auscultation bilaterally. No adventitious sounds are noted. No accessory muscle use noted. CV: Heart rate and rhythm are regular without murmur. ABDOMEN: Abdomen is soft with palpable tenderness about the periumbilical region. Her urostomy bag is intact with no surrounding erythema. There is clear looking urine in the urostomy bag. Bowel sounds are present x4 quadrants, but hypoactive. The patient does exhibit some voluntary guarding with palpation, but no involuntary guarding. No rebound. No palpable abdominal masses. No hepatosplenomegaly. BACK: Back exhibits no midline or paraspinal region tenderness. No increased paraspinal muscle rigidity. Negative Troy's sign. EXTREMITIES: No edema or cyanosis. Peripheral pulses are intact. No motor or sensory deficits are noted. Hand fisheries officer are strong and symmetric. SKIN: Skin is warm and dry. No diaphoresis or rash. NEUROLOGIC: Neurologic examine shows the patient to be alert and oriented x4. No motor or sensory deficits are noted. Normal speech. The patient speaks in full sentences. No slurred speech. No facial droop. EMERGENCY DEPARTMENT COURSE AND TREATMENT: Presently, I am going to get a CT scan of the abdomen and pelvis along with some screening blood work and a urinalysis. Then, we will reevaluate. Dictated By: Scar Young DO 01/26/23 22:57 JOB #: [id number] Transcribed By: am 01/27/23 10:45 Electronically signed by: E-Sign: Dr. Scar Young D.O. 01/27/23 23:55 Page 2 of 2 [facility], (more content not included)... Normal [facility] C-REACTIVE PROTEINon 023 CRP 0.70 mg/dl Normal 0.00 - 0.90 [facility] Comment on above: Performed By: #### 2 57611 #### [facility],[address] [place] [address] 08189 CBC + DIFFon 01-27-2023 Baso # 0.00 x10EE3/UL Normal 0.00 - 0.10 [facility] Comment on above: Performed By: #### 2 64740 #### [facility],[address] [place] [address] 46860 Basophils/100 WBC (Bld) 0.4 % Normal 0.0 - 2.0 [facility] Comment on above: Performed By: #### 2 64271 #### [facility],[address] [place] [address] 55293 CBC + DIFF Normal [facility] Comment on above: Result Comment: CBC- COMPLETE BLOOD COUNT Performed By: #### 2 19772 #### [place] [address] EO # 0.00 x10EE3/UL Normal 0.00 - 0.50 [facility] Comment on above: Performed By: #### 2 50123 #### [facility],[address] [place] [address] Eosinophils/100 WBC (Bld) 0.3 % Normal 0.0 - 7.0 [facility] Comment on above: Performed By: #### 2 18553 #### [place] [address] Erythrocyte distribution width (RBC) [Ratio] 15.4 % Normal 12.0 - 15.6 [facility] Comment on above: Performed By: #### 2 28417 #### [place] [address] Hematocrit (Bld) [Volume fraction] 45.2 % Normal 34.0 - 46.0 [facility] Comment on above: Performed By: #### 2 35319 #### [place] [address] Hemoglobin (Bld) [Mass/Vol] 15.2 g/dL Normal 12.0 - 16.0 [facility] Comment on above: Performed By: #### 2 18030 #### [place] [address] Lymph # 0.60 x10EE3/UL Low 0.80 - 2.80 [facility] Comment on above: Performed By: #### 2 51617 #### [place] [address] Lymphocytes/100 WBC (Bld) 7.1 % Low 20.0 - 45.0 [facility] Comment on above: Performed By: #### 2 65767 #### [place] [address] MANUAL DIFF N/A Normal [facility] Comment on above: Performed By: #### 2 47696 #### [facility],[address] [place] [address] MCH (RBC) [Entitic mass] 30 pg Normal 27 - 33 [facility] Comment on above: Performed By: #### 2 09952 #### [facility],[address] [place] [address] MCHC 34 X10 3 Normal 32 - 36 [facility] Comment on above: Performed By: #### 2 65315 #### [facility],[address] [place] [address] MCV (RBC) [Entitic vol] 89 fL Normal 80 - 99 [facility] Comment on above: Performed By: #### 2 49402 #### [place] [address] Dale # 0.40 x10EE3/UL Normal 0.20 - 1.00 [facility] Comment on above: Performed By: #### 2 80191 #### [facility],[address] [place] [address] MONOS % 4.9 % Normal 0.0 - 10.0 [facility] Comment on above: Performed By: #### 2 33268 #### [facility],[address] [place] [address] Morphology Ramin (Bld) [Interp] N/A Normal [facility] Comment on above: Result Comment: {CD] Performed By: #### 2 96139 #### [place] [address] Neut # 7.50 x10EE3/UL High 1.50 - 7.10 [facility] Comment on above: Performed By: #### 2 86129 #### [place] [address] Neutrophils/100 WBC (Bld) 87.3 % High 46.0 - 76.0 [facility] Comment on above: Performed By: #### 2 86290 #### [facility],[address] [place] [address] 84021 PLATELET 352 x10EE3/UL Normal 150 - 450 [facility] Comment on above: Performed By: #### 2 14866 #### [facility],[address] [place] [address] 90994 Platelet mean volume (Bld) [Entitic vol] 6.8 fL Normal 6.6 - 10.5 [facility] Comment on above: Result Comment: AUTO MATED DIFFERENTIAL Performed By: #### 2 35240 #### [address] [address] RBC 5.09 x 10EE6/UL Normal 4.10 - 5.30 [facility] Comment on above: Performed By: #### 2 56803 #### [facility],[address] [place], [place] [address] WBC 8.6 x 10EE3/UL Normal 4.5 - 10.8 [facility] Comment on above: Performed By: #### 2 53097 #### [facility],[address] [place] [address] 36669 CMP with eGFRon 01-27-2023 AGE 67 years Normal [facility] Comment on above: Performed By: #### 2 93638 #### [facility],[address] [place] [address] 32427 Albumin [Mass/Vol] 3.8 g/dL Normal 3.4 - 5.0 [facility] Comment on above: Performed By: #### 2 22580 #### [address] [address] Albumin/Globulin [Mass ratio] 0.9 {ratio} Normal 0.9 - 1.6 [facility] Comment on above: Performed By: #### 2 49855 #### [facility],[address] [place] [address] ALK PHOS 128 U/L High 46 - 116 [facility] Comment on above: Performed By: #### 2 58373 #### [facility],[address] [place] [address] 89717 ALT [Catalytic activity/Vol] 54 U/L Normal 14 - 59 [facility] Comment on above: Performed By: #### 2 86278 #### [facility],[address] [place] [address] Anion gap [Moles/Vol] 14 mmol/L Normal 10 - 20 [facility] Comment on above: Performed By: #### 2 99576 #### [facility],[address] [place], [place] [id number] AST [Catalytic activity/Vol] 28 U/L Normal 13 - 39 [facility] Comment on above: Performed By: #### 2 37839 #### [facility],[address] [place] [address] B/C RATIO 12 ratio Normal 0 - 30 [facility] Comment on above: Performed By: #### 2 77068 #### [facility],[address] [place], [place] [address] Bilirubin [Mass/Vol] 0.4 mg/dL Normal 0.2 - 1.0 [facility] Comment on above: Performed By: #### 2 43311 #### [facility],[address] [place] [address] 70101 Calcium [Mass/Vol] 9.5 mg/dL Normal 8.5 - 10.1 [facility] Comment on above: Performed By: #### 2 94179 #### [facility],[address] [place] [address] 34331 Chloride [Moles/Vol] 98 mmol/L Normal 98 - 107 [facility] Comment on above: Performed By: #### 2 88087 #### [facility],[address] [place] [address] CMP with eGFR Normal [facility] Comment on above: Result Comment: COMP REHENSIVE METABOLIC PANEL Performed By: #### 2 34175 #### [facility],[address] [place] [address] CO2 [Moles/Vol] 24.8 mmol/L Normal 21.0 - 32.0 [facility] Comment on above: Performed By: #### 2 36317 #### [facility],[address] [place] [address] Creatinine [Mass/Vol] 0.90 mg/dL Normal 0.55 - 1.02 [facility] Comment on above: Performed By: #### 2 37428 #### [facility],[address] [place] [address] GFR/1.73 sq M.predicted among non-blacks MDRD (S/P/Bld) [Vol rate/Area] mL/min/{1.73_m2} Normal 60 - 999 [facility] Comment on above: Performed By: #### 2 18139 #### [facility],[address] [place] [address] Result Comment: ACCO RDING TO THE NATIONAL KIDNEY DISEASE EDUCATION PROGRAM(NKDE), A NORMAL eGFR IS A VALUE GREATER THAN OR EQUAL TO 60 ML/MIN/1.73 SQ METERS. CHRONIC KIDNEY DISEASE: <60mL/MIN/1.73 SQ METERS KIDNEY FAILURE: <15mL/MIN/1.73 SQ METERS THIS TEST SHOULD ONLY BE USED FOR PATIENTS 18 YEARS OF AGE AND OLDER. Globulin (S) [Mass/Vol] 4.1 g/dL High 1.5 - 3.8 [facility] Comment on above: Performed By: #### 2 23895 #### [facility],[address] [place] [address] Glucose [Mass/Vol] 128 mg/dL High 74 - 106 [facility] Comment on above: Performed By: #### 2 12247 #### [facility],[address] [place] [address] 12127 Potassium [Moles/Vol] 4.6 mmol/L Normal 3.5 - 5.1 [facility] [facility] Comment on above: Performed By: #### 2 43395 #### [facility],[address] [place] [address] 54512 Protein [Mass/Vol] 7.9 g/dL Normal 6.4 - 8.2 [facility] Comment on above: Performed By: #### 2 27741 #### [facility],[address] [place] [address] 75054 Sodium [Moles/Vol] 132 mmol/L Low 136 - 145 [facility] Comment on above: Performed By: #### 2 54345 #### [facility],[address] [place] [address] 78695 Urea nitrogen [Mass/Vol] 11 mg/dL Normal 7 - 18 [facility] Comment on above: Performed By: #### 2 91414 #### [facility],[address] [place] [address] ABDOMEN/PELVIS Won 2022 CT ABDOMEN/PELVIS [place] [address] Patient: LINDA KIM Phone#: : 1955 Age: 67 Gender: F Pt. Type: ER Account: [id number] Location: 2 Ordering: SCAR YOUNG Exam Date: 01/26/2023/23:20 Family Phys: BEATRICE IRAHETA Charge Code: 561317 Physician: [place] Order #: [id number] Dose#: 13.10 mGy PROCEDURE: CT ABDOMEN/PELVIS WITH CONTRAST COMPARISON: [facility], CT, ABDOMEN/PELVIS W CON, 08/16/2022, 10:15. INDICATIONS: Abdominal pain. TECHNIQUE: After obtaining the patient's consent, CT images were created with non-ionic intravenous contrast material. All CT scans at this facility use dose modulation, iterative reconstruction, and/or weight based dosing when appropriate to reduce radiation dose to as low as reasonably achievable. IV CONTRAST: Omnipaque 350,80ml TOTAL DOSE: 13.10 CTDIvol(mGy) FINDINGS: LIVER: Fatty changes of the liver are present. There is no evidence of focal abnormality. BILIARY: Normal. No visible dilatation or calcification. PANCREAS: Calcifications of the pancreas are consistent with chronic pancreatitis. SPLEEN: Normal. No enlargement or focal lesion. KIDNEYS: Normal. No mass, obstruction, or calcification. ADRENALS: Normal. No mass or enlargement. AORTA/VASCULAR: Dense calcification of the aorta and iliac arteries. No aneurysm or dissection. RETROPERITONEUM: Normal. No mass or adenopathy. BOWEL/MESENTERY: Small-bowel mucosal thickening is present in the left upper abdomen consistent with enteritis. There is dilatation of small bowel with diameter 5.6 centimeters. Transition is in the right lower abdomen. Distal to the stoma the small bowel is decompressed. There is moderate stool retention in the proximal colon. There is trace free fluid in the pelvis. Small hiatal hernia is present. ABDOMINAL WALL: Right lower abdominal ostomy site is present. URINARY BLADDER: Normal. No visible focal wall thickening, lesion, or calculus. PELVIC NODES: Normal. No adenopathy. PELVIC ORGANS: Normal. No visible mass. Pelvic organs appropriate for patient age. Continued Report - Page 2 of 2 Patient: LINDA KIM Phone#: : 1955 Age: 67 Gender: F Pt. Type: ER Account: [id number] Location: [facility] Ordering: SCAR YOUNG Exam Date: 01/26/2023/23:20 Family Phys: BEATRICE IRAHETA Charge Code: 823239 Physician: [place] Order #: [id number] Dose#: 13.10 mGy BONES: Degenerative changes of the spine are present most marked at the L4-5 level. LUNG BASES: Normal. No visible pulmonary or pleural disease. OTHER: Negative. CONCLUSION: 1. Mucosal thickening of small bowel in the left upper abdomen is present consistent with enteritis. 2. Dilated small bowel to the mid lower pelvis is consistent with partial small bowel obstruction. 3. Moderate stool retention in the proximal colon. 4. Dense aortic and iliac artery calcification is present. 5. Probable chronic pancreatitis. Dictated by: Doreen Tapia MD on 01/27/2023 at 8:50 Approved by: Doreen Tapia MD on 01/27/2023 at 9:00 Normal [facility] LIPASEon 01-27-2023 Lipase [Catalytic activity/Vol] 52.0 U/L Low 73.0 - 393 [facility] Comment on above: Performed By: #### 2 42623 #### [facility],[address] [place], [place] [id number] URINALYSISon 01-27-2023 Amorphous 1+ Normal [facility] Comment on above: Performed By: #### 2 94303 #### [facility],[address] [place], [place] [address] Bacteria 4+ Normal [facility] Comment on above: Performed By: #### 2 59739 #### [facility],[address] [place], [place] [address] Bilirubin Ql (U) Negative Normal NORMAL: NEGATIVE [facility] Comment on above: Performed By: #### 2 64503 #### [facility],[address] [place], [place] [id number] Casts NONE Normal [facility] Comment on above: Performed By: #### 2 26365 #### [facility],[address] [place] [address] 00216 Clarity (U) very cloudy Normal NORMAL: CLEAR [facility] Comment on above: Performed By: #### 2 65225 #### [facility],[address] [place] [address] 47401 Color (U) yellow Normal NORMAL: YELLOW [facility] Comment on above: Performed By: #### 2 00865 #### [facility],[address] [place] [address] 38956 Crystals LM Nom (Urine sed) NONE Normal [facility] Comment on above: Performed By: #### 2 27145 #### [facility],[address] [place] [address] 58995 Epi Cells NONE Normal [facility] Comment on above: Performed By: #### 2 37611 #### [facility],[address] [place] [address] 04559 Glucose Ql (U) NORM Normal NORMAL: NORMAL [facility] Comment on above: Performed By: #### 2 90297 #### [facility],[address] [place], [place] [address] Hemoglobin Ql (U) 50 Abnormal NORMAL: NEGATIVE [facility] Comment on above: Performed By: #### 2 16321 #### [facility],[address] [place] [address] Ketone Negative Normal NORMAL: NEGATIVE [facility] Comment on above: Performed By: #### 2 12645 #### [facility],[address] [place] [address] 25962 Leukocytes 25 Abnormal NORMAL: NEGATIVE [facility] Comment on above: Performed By: #### 2 65531 #### [facility],[address] [place], [place] [address] Mucous NONE Normal [facility] Comment on above: Performed By: #### 2 77166 #### [facility],[address] [place] [address] 96562 Nitrite Ql (U) Negative Normal NORMAL: NEGATIVE [facility] Comment on above: Performed By: #### 2 73570 #### [facility],[address] [place] [address] 61597 pH (U) 6.5 [pH] Normal NORMAL: 5.0-8.0 [facility] Comment on above: Performed By: #### 2 85177 #### [facility],[address] [place] [address] 51354 Protein Ql (U) 30 Abnormal NORMAL: NEGATIVE [facility] Comment on above: Performed By: #### 2 80271 #### [facility],[address] [place], [place] [address] Rbc 0-5 Normal 0-3/hpf [facility] Comment on above: Performed By: #### 2 94268 #### [facility],[address] [place] [address] Sp [place] 1.015 Normal NORMAL: 1.010-1.030 [facility] Comment on above: Performed By: #### 2 06447 #### [facility],[address] [place] [address] Specimen Type Clean catch Normal [facility] Comment on above: Performed By: #### 2 11185 #### [facility],[address] [place] [address] Urinalysis dipstick W Reflex Microscopic panel (U) SEE BELOW Normal [facility] Comment on above: Result Comment: MICR OSCOPIC Performed By: #### 2 08909 #### [facility],[address] [place] [address] Urobilinog NORM Normal NORMAL: NORMAL [facility] Comment on above: Performed By: #### 2 10272 #### [facility],[address] [place] [address] Wbc 1-5 Normal 0-5/hpf [facility] Comment on above: Performed By: #### 2 87552 #### [facility],[address] [place] [address] Yeast NONE Normal [facility] Comment on above: Performed By: #### 2 89856 #### [facility],[address] [place] [address] 36on 09-09-2022 36 LM scheduled at [facility] 10-06-22 @ 745a, instructions given Normal [facility] 36on 08-31-2022 36 Spoke with patient a nd notified her that she will need a CT and provider would prefer it be done at a [facility] facility. Advised her Alma will call to scheduled. She verbalizes understanding. Normal [facility] 36 I believe she needs a CT abd/pelvis to better evaluate. Please let her know. Alma can we schedule this for her. I would prefer this to be at a [facility] facility so I can actually see the image. Normal [facility] 36 Patient called to in form went to emergency room in severe pain. Found 9mm kidney stone. Patient pasted stone and found in urostomy bag. Patient was told by emergency room doctor that need to schedule a renal scan. Patient denies any problems, pain and urine is clear. Patient would like to know if need the renal scan? Should patient schedule an appointment sooner than 03/16/23 (yearly follow up)? Please advise. Normal [facility] CNPNon 08-29-2022 CNPN Telephone (UROALL) -------- LINDA KIM ([id number]) 1955 F Date Time Provider Department 08/29/22 VINAYAK RODRIGUEZ During your visit today, we recorded the following information about you: Vinayak Rodriguez MD 08/29/2022 12:54 PM Signed I reviewed the KUB from [facility]. We did get in the [facility] computer. I think she passed her stone. This 100% we already caught 1 and I think that is going to be. I still think I like to get a renal scan with Lasix this will show that once she is not obstructed from either stone or scar this is a lady that the radiologist called me about I was concerned and is possible this could have aggravated the stone if she does have some anastomotic scar I put in the computer we will see if we can get it done Allergies As of Date: 08/29/2022 Noted Allergy Reaction EGGS (EGG) 08/16/2022 4 - Hives Date Reviewed: 08/16/2022 Reviewed by: Vinayak Rodriguez MD - Fully Assessed Reason for Visit: Surgical Services Coordinator - Other [3372] Primary Visit Diagnosis:Hydronephrosis , unspecified hydronephrosis type [N13.30] Order(s):NM RENAL FLOW/FXN W PHARM [[id number]] Order #: [id number] FUTURE Prescriptions as of 08/29/2022 - cephALEXin (KEFLEX) 500 mg capsule - docusate sodium (COLACE) 100 mg capsule Take by mouth. - oxyCODONE-acetaminophen (PERCOCET) 5-325 mg tablet - polyethylene glycol 3350 17 gram/dose powder Take 17 g by mouth. Problem List As Of Date: 08/29/2022 (None) Encounter Status:Closed by VINAYAK RODRIGUEZ on 08/29/22 [facility] CALCULI ANALYSISon 3 Calculus analysis [Interp] [facility] Comment on above: Order Comment: Speci men Type: CALCULUS SPECIMEN Ordering Facility: [facility] Address: [address] [place] [address] Result Comment: This test was developed and its performance characteristics determined by [facility] [place] ([facility]). It has not been cleared or approved by the FDA. [facility] is regulated under CLIA as qualified to perform high-complexity testing. This test is used for clinical purposes. It should not be regarded as investigational or for research. Performed By: #### C SA #### [facility] CLIA [id number] [address] [place] [address] [place] CALCULUS COLOR OFF WHITE [facility] Comment on above: Order Comment: Speci men Type: CALCULUS SPECIMEN Ordering Facility: [facility] Address: [address] [place] [address] Performed By: #### C SA #### [facility] CLIA [id number] [address] [place] [address] [place] CALCULUS COMPOSITION 1 90% Calcium Phosphate [facility] Comment on above: Order Comment: Speci men Type: CALCULUS SPECIMEN Ordering Facility: [facility] Address: [address] [place] [address] Performed By: #### C SA #### [facility] CLIA [id number] [address] CALCULUS COMPOSITION 2 10% Minor Components [facility] Comment on above: Order Comment: Speci men Type: CALCULUS SPECIMEN Ordering Facility: [facility] Address: [address] [place] [address] Performed By: #### C SA #### [facility] CLIA [id number] [address] [place] CALCULUS SIZE AND WT 0.8 X 0.6 X 0.3 CM 0.1772 GRAMS Normal [facility] Comment on above: Order Comment: Speci men Type: CALCULUS SPECIMEN Ordering Facility: [facility] Address: [address] [place] [address] Performed By: #### C SA #### [facility] CLIA [id number] [facility] [address] CALCULUS TYPE URINE Normal [facility] Comment on above: Order Comment: Speci men Type: CALCULUS SPECIMEN Ordering Facility: [facility] Address: [address] [place] [address] Performed By: #### C SA #### [facility] CLIA [id number] [address] [place] [address] [place] MRSHPon 08-25-2022 [facility] Patient name: LINDA KIM MR#: [id number] Location: [facility] Acc#: [id number] Admit Date: : 1955 Age: 67 Sex: F Dictated By: Vinayak Rodriguez MD Signing Physician: Vinayak Rodriguez SIGNING PHYSICIAN: PREOPERATIVE DIAGNOSIS: Right distal ureteral stone, 9 mm. PLAN: ESWL. HISTORY OF PRESENT ILLNESS: The patient is a 67-year-old white female with a 9 mm stone in the distal right ureter. She had a hysterectomy a few years ago. ALLERGIES: EGGS and PERCOCET . PHYSICAL EXAMINATION: GENERAL: A well-developed, well-nourished white female in no apparent distress. LUNGS: Clear. HEART: Regular rate and rhythm. ABDOMEN: Soft. : Normal female. BONES AND EXTREMITIES: No clubbing, cyanosis or edema. NEURO: Grossly intact. ASSESSMENT: A 9 mm stone I think in the distal right ureter. The patient has a with ileal conduit. PLAN: ESWL. BRITTANEY/SILVIO @ 22:46 @ 07:01 # [id number] ____ Vinayak Rodriguez M.D. Electronically Signed Date/Time: 08/26/22815 Electronically Signed Date/Time: 08/26/22815 [facility] EMERGENCY REPORTon EMERGENCY REPORT [facility] EMERGENCY ROOM REPORT NAME ACCOUNT SEX AGE ADMIT DISCHARGE PT MED. RECORD# NUMBER DATE DATE TYPE LINDA KIM [id number] F 67 08/16/22 08/16/22 3 [id number] ROOM: ER DATE OF : 1955 DICTATING PHYSICIAN: Skinny Sheldon HISTORY OF PRESENT ILLNESS: The patient came in complaining of acute right upper-sided flank and back pain which started around four o'clock this morning. She did try taking Motrin. She said the pain was a seven out of ten. It is a constant sharp pain. It is worse with movement. Nothing makes it better. She presents to the emergency department. She did have nausea, she vomited once. She has been on MiraLAX for constipation in the past. She has had chills, and no fever. Presents to the emergency department. PAST MEDICAL HISTORY: She has had a history of bladder cancer for which she had a nephrostomy. PAST SURGICAL HISTORY: Hysterectomy, appendectomy. She has also had bowel surgery for bladder cancer. SOCIAL HISTORY: She does smoke. Denies alcohol use. REVIEW OF SYSTEMS: Ten systems reviewed and were negative except as mentioned above. PHYSICAL EXAMINATION: VITAL SIGNS: The patient is afebrile. Pulse 81, Respirations 18. Blood pressure 157/80. Pulse oximetry 95% on room air. HEAD: Normocephalic, atraumatic. EYES: Pupils equal, round, and reactive to light. Extraocular muscles intact. NARES: Patent. THROAT: Adequate moisture. Uvula is midline. NECK: Supple without petechiae rash. HEART: Without murmur, S1 and S2, no S4 appreciated. LUNGS: Clear to auscultation bilaterally. No rales, rhonchi, or retractions. ABDOMEN: Soft, non-tender, and non-distended. SKIN: Warm and dry. DIAGNOSTIC DATA: The patient had an EKG that shows a rate of 84. Her white count was 13,900 with a left shift. Hemoglobin 15 and hematocrit 44. Her creatinine was 1.13. 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 I think it is going to be the same stone she did get an x-ray at her local hospital I cannot pull out, have her bring a disc and send it to me so we can double check but I think this is her stone we will send get it analyzed we will go ahead and do a KUB in 6 months and just watch for more stones Allergies As of Date: 08/17/2022 Noted Allergy Reaction EGGS (EGG) 08/16/2022 4 - Hives Date Reviewed: 08/16/2022 Reviewed by: Vinayak Rodriguez MD - Fully Assessed Reason for Visit: Results [95] Primary Visit Diagnosis:Kidney stones [N20.0] Order(s):XR ABDOMEN 1V SUPINE [[id number]] Order #: [id number] FUTURE Prescriptions as of 08/25/2022 - cephALEXin (KEFLEX) 500 mg capsule - docusate sodium (COLACE) 100 mg capsule Take by mouth. - oxyCODONE-acetaminophen (PERCOCET) 5-325 mg tablet - polyethylene glycol 3350 17 gram/dose powder Take 17 g by mouth. - ciprofloxacin HCl (CIPRO) 250 mg tablet Take 1 tablet by mouth twice daily for 10 days. Problem List As Of Date: 08/17/2022 (None) Encounter Status:Closed by VINAYAK RODRIGUEZ on 08/25/22 [facility] CBC + DIFFon 08-16-2022 Baso # 0.00 x10EE3/UL Normal 0.00 - 0.10 [facility] Comment on above: Performed By: #### 2 60553 #### [facility],[address] [place] [address] 37671 Basophils/100 WBC (Bld) 0.3 % Normal 0.0 - 2.0 [facility] Comment on above: Performed By: #### 2 20144 #### [facility],[address] [place] [address] 29013 CBC + DIFF Normal [facility] Comment on above: Result Comment: CBC- COMPLETE BLOOD COUNT Performed By: #### 2 54849 #### [facility],[address] [place] [address] 68746 EO # 0.00 x10EE3/UL Normal 0.00 - 0.50 [facility] Comment on above: Performed By: #### 2 40235 #### [facility],[address] [place] [address] 15080 Eosinophils/100 WBC (Bld) 0.0 % Normal 0.0 - 7.0 [facility] Comment on above: Performed By: #### 2 75141 #### [facility],[address] [place] [address] Erythrocyte distribution width (RBC) [Ratio] 14.8 % Normal 12.0 - 15.6 [facility] Comment on above: Performed By: #### 2 43183 #### [facility],[address] [place] [address] Hematocrit (Bld) [Volume fraction] 44.5 % Normal 34.0 - 46.0 [facility] Comment on above: Performed By: #### 2 87924 #### [facility],[address] [place] [address] Hemoglobin (Bld) [Mass/Vol] 15.1 g/dL Normal 12.0 - 16.0 [facility] Comment on above: Performed By: #### 2 01735 #### [facility],[address] [place] [address] Lymph # 0.30 x10EE3/UL Low 0.80 - 2.80 [facility] Comment on above: Performed By: #### 2 38640 #### [facility],[address] [place], [place] [address] Lymphocytes/100 WBC (Bld) 2.5 % Low 20.0 - 45.0 [facility] Comment on above: Performed By: #### 2 15906 #### [facility],[address] [place], [place] [address] MANUAL DIFF N/A Normal [facility] Comment on above: Performed By: #### 2 35893 #### [address] [address] MCH (RBC) [Entitic mass] 30 pg Normal 27 - 33 [facility] Comment on above: Performed By: #### 2 38780 #### [facility],[address] [place] [address] MCHC 34 X10 3 Normal 32 - 36 [facility] Comment on above: Performed By: #### 2 89554 #### [facility],[address] [place] [address] 59668 MCV (RBC) [Entitic vol] 88 fL Normal 80 - 99 [facility] Comment on above: Performed By: #### 2 56014 #### [facility],[address] [place] [address] 37534 Dale # 0.60 x10EE3/UL Normal 0.20 - 1.00 [facility] Comment on above: Performed By: #### 2 44831 #### [facility],[address] [place] [address] 41038 MONOS % 4.2 % Normal 0.0 - 10.0 [facility] Comment on above: Performed By: #### 2 28194 #### [facility],[address] [place], [place] [address] Morphology Ramin (Bld) [Interp] N/A Normal [facility] Comment on above: Performed By: #### 2 10547 #### [facility],[address] [place] [address] 40826 Neut # 12.90 x10EE3/UL High 1.50 - 7.10 [facility] Comment on above: Performed By: #### 2 87464 #### [facility],[address] [place] [address] 04022 Neutrophils/100 WBC (Bld) 93.0 % High 46.0 - 76.0 [facility] Comment on above: Performed By: #### 2 87876 #### [facility],[address] [place] [address] 13133 PLATELET 213 x10EE3/UL Normal 150 - 450 [facility] Comment on above: Performed By: #### 2 76343 #### [facility],[address] [place] [address] 03255 Platelet mean volume (Bld) [Entitic vol] 7.7 fL Normal 6.6 - 10.5 [facility] Comment on above: Result Comment: AUTO MATED DIFFERENTIAL Performed By: #### 2 55889 #### [facility],[address] [place] [address] RBC 5.07 x 10EE6/UL Normal 4.10 - 5.30 [facility] Comment on above: Performed By: #### 2 23691 #### [facility],[address] [place] [address] WBC 13.9 x 10EE3/UL High 4.5 - 10.8 [facility] Comment on above: Performed By: #### 2 28310 #### [facility],[address] [place] [address] CMP with eGFRon 08-16-2022 AGE 67 years Normal [facility] Comment on above: Performed By: #### 2 33269 #### [facility],[address] [place] [address] Albumin [Mass/Vol] 3.9 g/dL Normal 3.4 - 5.0 [facility] Comment on above: Performed By: #### 2 67590 #### [facility],[address] [place] [address] Albumin/Globulin [Mass ratio] 1.1 {ratio} Normal 0.9 - 1.6 [facility] Comment on above: Performed By: #### 2 70357 #### [facility],[address] [place], [place] [id number] ALK PHOS 78 U/L Normal 46 - 116 [facility] Comment on above: Performed By: #### 2 77661 #### [facility],[address] [place], [place] [id number] ALT [Catalytic activity/Vol] 11 U/L Low 14 - 59 [facility] Comment on above: Performed By: #### 2 41758 #### [facility],[address] [place], [place] [address] Anion gap [Moles/Vol] 18 mmol/L Normal 10 - 20 [facility] Comment on above: Performed By: #### 2 70748 #### [facility],[address] [place], [place] [id number] AST [Catalytic activity/Vol] 23 U/L Normal 13 - 39 [facility] Comment on above: Performed By: #### 2 52704 #### [facility],[address] [place] [address] B/C RATIO 29 ratio Normal 0 - 30 [facility] Comment on above: Performed By: #### 2 82791 #### [facility],[address] [place] [address] Bilirubin [Mass/Vol] 0.3 mg/dL Normal 0.2 - 1.0 [facility] Comment on above: Performed By: #### 2 25750 #### [facility],[address] [place] [address] Calcium [Mass/Vol] 9.4 mg/dL Normal 8.5 - 10.1 [facility] Comment on above: Performed By: #### 2 98433 #### [facility],[address] [place], [place] [id number] Chloride [Moles/Vol] 104 mmol/L Normal 98 - 107 [facility] Comment on above: Performed By: #### 2 52758 #### [facility],[address] [place] [address]32 CMP with eGFR Normal [facility] Comment on above: Result Comment: COMP REHENSIVE METABOLIC PANEL Performed By: #### 2 69896 #### [facility],[address] [place] [address] CO2 [Moles/Vol] 20.9 mmol/L Low 21.0 - 32.0 [facility] Comment on above: Performed By: #### 2 59984 #### [facility] [address] [address] Creatinine [Mass/Vol] 1.01 mg/dL Normal 0.55 - 1.02 [facility] Comment on above: Performed By: #### 2 06574 #### [facility],[address] [place] [address] 22741 eGFR 55 ML/MINUTE Low 60 - 999 [facility] Comment on above: Performed By: #### 2 06551 #### [facility],[address] [place] [address] GFR/1.73 sq M.predicted among non-blacks MDRD (S/P/Bld) [Vol rate/Area] mL/min/{1.73_m2} Normal 60 - 999 [facility] Comment on above: Result Comment: ACCO RDING TO THE NATIONAL KIDNEY DISEASE EDUCATION PROGRAM(NKDE), A NORMAL eGFR IS A VALUE GREATER THAN OR EQUAL TO 60 ML/MIN/1.73 SQ METERS. CHRONIC KIDNEY DISEASE: <60mL/MIN/1.73 SQ METERS KIDNEY FAILURE: <15mL/MIN/1.73 SQ METERS THIS TEST SHOULD ONLY BE USED FOR PATIENTS 18 YEARS OF AGE AND OLDER. Performed By: #### 2 59888 #### [address] [address] Globulin (S) [Mass/Vol] 3.4 g/dL Normal 1.5 - 3.8 [facility] Comment on above: Performed By: #### 2 48757 #### [facility],[address] [place] [address] Glucose [Mass/Vol] 142 mg/dL High 74 - 106 [facility] Comment on above: Performed By: #### 2 07958 #### [address] [address] Potassium [Moles/Vol] 4.4 mmol/L Normal 3.5 - 5.1 [facility] Comment on above: Performed By: #### 2 29755 #### [facility],[address] [place] [address] Protein [Mass/Vol] 7.3 g/dL Normal 6.4 - 8.2 [facility] Comment on above: Performed By: #### 2 44921 #### [facility],[address] [place] [address] Sodium [Moles/Vol] 138 mmol/L Normal 136 - 145 [facility] Comment on above: Performed By: #### 2 82345 #### [facility],[address] [place] [address] Urea nitrogen [Mass/Vol] 29 mg/dL High 7 - 18 [facility] Comment on above: Performed By: #### 2 40979 #### [facility],[address] [place] [address] CNOVon 08-16-2022 CNOV Office Visit (COLLEEN ) -------- LINDA KIM ([id number]) 1955 F Date Time Provider Department 08/16/22 4:00 PM VINAYAK RODRIGUEZ During your visit today, we recorded the following information about you: Weight Height 47.2 kg 1.6 m Vinayak Rodriguez MD 08/16/2022 3:55 PM Signed Linda Kim is a 67 year old female who presents with follow-up of a right proximal ureteral stone 9 mm. She was at [facility] today. They also had a 5 mm stone which I do not see. This is her first stone. In December 2020 there was not a stone there in her CT. So she grew up in the last year and a half I think she is going to need a lithotripsy. Patient not septic I do not think we need a PERC Review of Systems- Reviewed and otherwise non-contributory. Ht 160 cm (5' 3 ) Wt 47.2 kg (104 lb) BMI 18.42 kg/m? PAST MEDICAL HISTORY Diagnosis Date Bladder cancer (HCC) PAST SURGICAL HISTORY Procedure Laterality Date UROSTOMY CARE Current Outpatient Medications Medication Sig Dispense Refill cephALEXin (KEFLEX) 500 mg capsule docusate sodium (COLACE) 100 mg capsule Take by mouth. oxyCODONE-acetaminophen (PERCOCET) 5-325 mg tablet polyethylene glycol 3350 17 gram/dose powder Take 17 g by mouth. No current facility-administered medications for this visit. No diagnosis found. Vinayak Rodriguez MD This note was generated with voice recognition software and may contain errors, including spelling, grammar, syntax and misrecognition of what was dictated, that are not fully corrected. Vinayak Rodriguez MD 08/16/2022 4:08 PM Signed Addended by: VINAYAK RODRIGUEZ on: 08/16/2022 04:08 PM Modules accepted: Orders Allergies As of Date: 08/16/2022 Noted Allergy Reaction EGGS (EGG) 08/16/2022 4 - Hives Date Reviewed: 08/16/2022 Reviewed by: Vinayak Rodriguez MD - Fully Assessed Reason for Visit: Kidney Stones [30557] Primary Visit Diagnosis:Kidney stones [N20.0] Other Visit Diagnosis:Hematuria, unspecified type [R31.9] Order(s):oxyCODONE-aceta minophen (PERCOCET) 5-325 mg tabletTake 1-2 tablets by mouth every 4 hours as needed for pain for up to 7 days.Disp: 30 tabletRfl: 0 ciprofloxacin HCl (CIPRO) 250 mg tabletTake 1 tablet by mouth twice daily for 10 days.Disp: 20 tabletRfl: 0 XR ABDOMEN 2V ROUTINE SUPINE W UPRIGHT/DECUB/CTL [[id number]] Order #: [id number] FUTURE Prescriptions as of 08/16/2022 - cephALEXin (KEFLEX) 500 mg capsule - docusate sodium (COLACE) 100 mg capsule Take by mouth. - oxyCODONE-acetaminophen (PERCOCET) 5-325 mg tablet - polyethylene glycol 3350 17 gram/dose powder Take 17 g by mouth. - oxyCODONE-acetaminophen (PERCOCET) 5-325 mg tablet Take 1-2 tablets by mouth every 4 hours as needed for pain for up to 7 days. - ciprofloxacin HCl (CIPRO) 250 mg tablet Take 1 tablet by mouth twice daily for 10 days. Problem List As Of Date: 08/16/2022 (None) Prescriptions ordered this encounter Disp Refills Start End OXYCODONE-ACETAMINOPHEN 5 MG-325 MG * 30 t* 0 08/16/2022 08/23/2022 Route: ORAL Sig: Take 1-2 tablets by mouth every 4 hours as needed for pain for up to 7 days. CIPROFLOXACIN 250 MG TABLET 20 t* 0 08/16/2022 08/26/2022 Route: ORAL Sig: Take 1 tablet by mouth twice daily for 10 days. Disposition: Return for R ESWL. Follow-up and Disposition History for Encounter Date Provider Department Center 08/16/2022 [id number] RODRIGUEZ [facility] Letter Text Encounter Status:Closed by VINAYAK RODRIGUEZ on 08/16/[address] [facility] [address] ABDOMEN/PELVIS Won 2022 CT ABDOMEN/PELVIS [place] [address] Patient: LINDA KIM Phone#: : 1955 Age: 67 Gender: F Pt. Type: ER Account: [id number] Location: [facility] Ordering: SKINNY SHELDON Exam Date: 08/16/2022/10:15 Family Phys: BEATRICE IRAHETA Charge Code: 291452 Physician: [place] Order #: [id number] Dose#: [id number] PROCEDURE: CT ABDOMEN/PELVIS WITH CONTRAST COMPARISON: [facility], CT, ABDOMEN/PELVIS W CON, 12/31/2020, 16:48. INDICATIONS: Abdominal pain. TECHNIQUE: After obtaining the patient's consent, CT images were created with non-ionic intravenous contrast material. All CT scans at this facility use dose modulation, iterative reconstruction, and/or weight based dosing when appropriate to reduce radiation dose to as low as reasonably achievable. IV CONTRAST: Omnipaque 350,80ml TOTAL DOSE: 13.90 CTDIvol(mGy) FINDINGS: LIVER: Normal. No enlargement, atrophy, abnormal density, or significant focal lesion. BILIARY: Normal. No visible dilatation or calcification. PANCREAS: Normal. No lesion, fluid collection, ductal dilatation, or atrophy. SPLEEN: Normal. No enlargement or focal lesion. KIDNEYS: There is moderate right-sided hydronephrosis. There is a 9 millimeter calculus in the proximal right ureter. There is a nonobstructing 5 millimeter calculus in lower pole. Perinephric stranding is present. Kidney is. ADRENALS: Normal. No mass or enlargement. AORTA/VASCULAR: Normal. No aneurysm or dissection. RETROPERITONEUM: Normal. No mass or adenopathy. BOWEL/MESENTERY: Normal. No visible mass, obstruction, or bowel wall thickening. ABDOMINAL WALL: Normal. No mass or hernia. URINARY BLADDER: Normal. No visible focal wall thickening, lesion, or calculus. PELVIC NODES: Normal. No adenopathy. PELVIC ORGANS: Normal. No visible mass. Pelvic organs appropriate for patient age. BONES: Normal. No bony lesion or fracture. LUNG BASES: Normal. No visible pulmonary or pleural disease. OTHER: Negative. Continued Report - Page 2 of 2 Patient: LINDA KIM Phone#: : 1955 Age: 67 Gender: F Pt. Type: ER Account: [id number] Location: [facility] Ordering: SKINNY SHELDON Exam Date: 08/16/2022/10:15 Family Phys: BEATRICE IRAHETA Charge Code: 211247 Physician: [place] Order #: [id number] Dose#: [id number] CONCLUSION: 1. There is no evidence of acute solid organ abnormality. 2. 9 millimeter calculus is present in the proximal right ureter with moderate hydronephrosis. Dictated by: Doreen Tapia MD on 08/16/2022 at 10:40 Approved by: Doreen Tapia MD on 08/16/2022 at 10:53 Normal [facility] LIPASEon 08-16-2022 Lipase [Catalytic activity/Vol] 92.0 U/L Normal 73.0 - 393 [facility] Comment on above: Performed By: #### 2 77210 #### [facility],[address] [place] [address] URINALYSISon 08-16-2022 Amorphous NONE Normal [facility] Comment on above: Performed By: #### 2 58836 #### [facility],[address] [place] [address] Bacteria 3+ Normal [facility] Comment on above: Performed By: #### 2 05350 #### [facility],[address] [place] [address] Bilirubin Ql (U) Negative Normal NORMAL: NEGATIVE [facility] Comment on above: Performed By: #### 2 01469 #### [facility],[address] [place] [address] 26895 Casts NONE Normal [facility] Comment on above: Performed By: #### 2 74391 #### [facility],[address] [place] [address] Clarity (U) sl.cloudy Normal NORMAL: CLEAR [facility] Comment on above: Performed By: #### 2 70897 #### [facility],[address] [place], [place] [phone] Color (U) p.yel Normal NORMAL: YELLOW [facility] Comment on above: Performed By: #### 2 21081 #### [facility],[address] [place] [address] 16568 Crystals LM Nom (Urine sed) NONE Normal [facility] Comment on above: Performed By: #### 2 04044 #### [facility],[address] [place] [address] 70121 Epi Cells NONE Normal [facility] Comment on above: Performed By: #### 2 62710 #### [facility],[address] [place] [address] Glucose Ql (U) NORM Normal NORMAL: NORMAL [facility] Comment on above: Performed By: #### 2 86610 #### [facility],[address] [place] [address] Hemoglobin Ql (U) 150 Abnormal NORMAL: NEGATIVE [facility] Comment on above: Performed By: #### 2 76776 #### [facility],[address] [place] [address] 02770 Ketone Negative Normal NORMAL: NEGATIVE [facility] Comment on above: Performed By: #### 2 31723 #### [facility],[address] [place] [address] Leukocytes 100 Abnormal NORMAL: NEGATIVE [facility] Comment on above: Performed By: #### 2 49403 #### [facility],[address] [place] [address] Mucous NONE Normal [facility] Comment on above: Performed By: #### 2 63095 #### [facility],[address] [place] [address] Nitrite Ql (U) Positive Normal NORMAL: NEGATIVE [facility] Comment on above: Performed By: #### 2 29896 #### [facility],[address] [place] [address] pH (U) 8 [pH] Normal NORMAL: 5.0-8.0 [facility] Comment on above: Performed By: #### 2 57545 #### [facility],[address] [place] [address] Protein Ql (U) 15 Abnormal NORMAL: NEGATIVE [facility] Comment on above: Performed By: #### 2 79292 #### [facility],[address] [place] [address] Rbc 25-30 Normal 0-3/hpf [facility] Comment on above: Performed By: #### 2 49251 #### [facility],[address] [place] [address] Sp [place] 1.015 Normal NORMAL: 1.010-1.030 [facility] Comment on above: Performed By: #### 2 73496 #### [facility],[address] [place] [address] Specimen Type UNSPECIFIED Normal [facility] Comment on above: Performed By: #### 2 80845 #### [facility],[address] [place] [address]85[address] Urinalysis dipstick W Reflex Microscopic panel (U) SEE BELOW Normal [facility] Comment on above: Result Comment: MICR OSCOPIC Performed By: #### 2 36615 #### [facility],[address] [place] [address] 29593 Urobilinog NORM Normal NORMAL: NORMAL [facility] Comment on above: Performed By: #### 2 03156 #### [facility],[address] [place] [address] 15943 Wbc 11-15 Normal 0-5/hpf [facility] Comment on above: Performed By: #### 2 99798 #### [facility],[address] [place] [address] 91149 Yeast NONE Normal [facility] Comment on above: Performed By: #### 2 09222 #### [facility],[address] [place], [place] [id number] XR ABD 2V SUPINE W UPR/DECUB /CTLon 08-16-2022 XR ABD 2V SUPINE W UPR/DECUB/CTL * * *Final Report* * * DATE OF EXAM: Aug 16 2022 4:59PM RHX [id number] - XR ABD 2V SUPINE W UPR/DECUB/CTL / PROCEDURE REASON: multiple diagnoses * * * * Physician Interpretation * * * * XR ABD 2V SUPINE W UPR/DECUB/CTL Ordering Physician: VINAYAK RODRIGUEZ 2 VIEW ABDOMEN Clinical Statement: Pain right side. History of prior bladder removal. FINDINGS: There has presumably been prior contrast administration. 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 Trace contrast material within the left kidney. No definite calculus identified although calculi could be obscured by the contrast material. Contrast material collecting within the ostomy bag. Unremarkable bowel gas pattern. No acute osseous abnormalities. Lung bases are clear.. IMPRESSION: There is at least moderate right-sided hydroureteronephrosis to the level of the pelvis of uncertain etiology with delayed nephrogram on the right side. Contrast within a nondilated left kidney but no definite calculus or obstruction identified on the left side. Findings were discussed with Dr. Rodriguez at the time of interpretation. Director Of Product Design: SIERRA Transcribe Date/Time: Aug 17 2022 8:22A Dictated by : ANDREY EWING MD This examination was interpreted and the report reviewed and electronically signed by: ANDREY EWING MD on Aug 17 2022 9:12AM EST [id number] Normal [facility] OPERATIVE REPORTon Ordered by an unspecified provider. KOKO SUTHERLAND Op Noteon 12-20-2021 Op Note DOS: 12/20/21 PREOPERATIVE DIAGNOSIS: Vaginal prolapse after hysterectomy. POSTOPERATIVE DIAGNOSIS: Vaginal prolapse after hysterectomy. PROCEDURES: 1. COLPECTOMY. 2. POSTERIOR REPAIR. 3. CYSTOSCOPY. SURGEON: Benigno Heath M.D. RECRUITING ASSOCIATE SURGEON: Dr. Rodgers, Dr. Rizvi ANESTHESIA: General oral ETT. SPECIMENS: None. URINE OUTPUT: Not monitored. DRAINS: Cooper. FINDINGS: Stage 4 vaginal vault prolapse. No bladder injury noted on cystoscopy. Normal rectal examination. COMPLICATIONS: None. STATUS AT THE END OF PROCEDURE: Stable. DESCRIPTION OF PROCEDURE: The patient was brought to the operating room with IV running. She was identified by name, medical record number, and date of . Prophylactic IV antibiotic was given. The patient was positioned in the supine position. General anesthesia was induced. The patient was positioned in the lithotomy position with proper padding of pressure points. SCD stockings were placed on the calf bilaterally. The lower abdomen and genitalia were scrubbed and draped in the usual sterile fashion. A 16-Bulgarian Cooper catheter was inserted into the bladder and kept to drainage. A Lavallette retractor was utilized to expose the vaginal wall. The vaginal cuff was identified and was grasped with 2 Allis clamps. The vagina was everted by placing traction on the clamps. The vaginal mucosa was then injected circumferentially with 1% lidocaine with epinephrine and was incised circumferentially with a scalpel. The vaginal wall consisted only of a very atrophic vaginal epithelium. The omentum was apparent to the vagina. The bowels were packed away and the omentum was detached from the inside of the vaginal wall using sharp dissection. Good hemostasis was noticed. Then vagina was removed entirely. Then, the cut edges of the remaining vaginal mucosa was closed transversely with a continuous 2-0 Vicryl suture. Good hemostasis was noticed. Inspection of the patient's vagina showed a small posterior rectocele and large genital hiatus. Then, we proceeded with a posterior repair. The apex of the rectocele was grasped with an Allis clamp. Allis clamps were then placed laterally on the hymenal ring and also inferiorly at the level of the perineal defect. 1% lidocaine with epinephrine was injected in the vaginal epithelium and incision was then made cranial to caudad beginningat the apex of the rectocele just on the superficial epithelium and then out towards the Allis on the hymenal ring and down toward Allis that was placed at the base of the perineal defect. Then a section of the vaginal epithelium and perineal skin in a nas shape was removed. The perirectal fascia was then dissected off the underlying vaginal epithelium using both blunt dissection with the Gibraltarian forceps and sharp dissection with the Metzenbaum scissors. Then, using interrupted sutures of 2-0 Vicryl the perirectal fascia was reapproximated. The vaginal epithelial edges were then reapproximated with a 2-0 Vicryl in a running fashion to the level of the hymenal ring. Then, the perineal muscles were approximated with few 2-0 Vicryl stitches. The perineal area skin was closed with 2-0 Vicryl. Rectal examination was performed at the end of the procedure and the rectum was found to be intact. A Cooper catheter was left in the bladder to straight drainage. The patient tolerated the procedure well. She was taken to the recovery room awake and in stable condition. Normal [facility] Basic Metabolic Panelon 07-2 Calcium [Mass/Vol] 9.5 mg/dL Normal 8.4-10.4 [facility] Comment on above: Performed By: #### H SHAHEED UREÑA3 #### [address] [address] Glucose [Mass/Vol] 100 mg/dL Normal 70-100 [facility] Comment on above: Performed By: #### H NIRANJAN BMP3 #### [address] Anion gap [Moles/Vol] 9 mmol/L Normal 3-13 [facility] Comment on above: Performed By: #### H SHAHEED UREÑA3 #### [facility] [address], [place] CO2 [Moles/Vol] 21 mmol/L Low 22-30 [facility] Comment on above: Performed By: #### H NIRANJAN BMP3 #### [facility] [address], [place] Creatinine [Mass/Vol] 0.65 mg/dL Normal 0.52-1.25 [facility] Comment on above: Performed By: #### H SHAHEED UREÑA3 #### [facility] [address], [place] eGFR OTHER > 90.0 Normal >60 [facility] Comment on above: Result Comment: KDIG O guidelines provide the following GFR categories: Stage GFR(ml/min/1.73 m2) Terms G1 >=90 Normal or high G2 60-89 Mildly decreased* G3a 45-59 Mildly to moderately decreased G3b 30-44 Moderately to severely decreased G4 15-29 Severely decreased G5 <15 Kidney failure *Relative to young adult level. In the absence of evidence of kidney damage, neither GFR category G1 nor G2 fulfill the criteria for CKD. The CKD-EPI equation is validated in individuals 18 years of age and older. Currently the best equation for estimating glomerular filtration rate (GFR) from serum creatinine in children is the Bedside Celis equation. It is less accurate in patients with extremes of muscle mass, restriction of dietary protein, ingestion of creatine, extra-renal metabolism of creatinine, or treatment with medications that affect renal tubular creatinine secretion. Performed By: #### H SHAHEED UREÑA3 #### [facility] [address], [place] GFR/1.73 sq M.predicted among blacks MDRD (S/P/Bld) [Vol rate/Area] mL/min/{1.73_m2} Normal >60 [facility] Comment on above: Performed By: #### H NIRANJAN BMP3 #### [facility] [employer] [facility] [address] [place] [address] Urea nitrogen [Mass/Vol] 14 mg/dL Normal 9-20 [facility] Comment on above: Performed By: #### H NIRANJAN BMP3 #### [facility] [address], [place] Chloride [Moles/Vol] 108 mmol/L High 98-107 [facility] Comment on above: Performed By: #### H NIRANJAN BMP3 #### [facility] [address], [place] Potassium [Moles/Vol] 4.5 mmol/L Normal 3.5-5.1 [facility] Comment on above: Performed By: #### H NIRANJAN BMP3 #### [facility] [address], [place] Sodium [Moles/Vol] 137 mmol/L Normal 135-145 [facility] Comment on above: Performed By: #### H NIRANJAN BMP3 #### [facility] [address], [place] Anion gap [Moles/Vol] 9 mmol/L 3 - 13 mmol/L [facility] Calcium [Mass/Vol] 9.5 mg/dL 8.4 - 10. 4 mg/dL [facility] Chloride [Moles/Vol] 108 mmol/L High 98 - 10 7 mmol/L [facility] CO2 [Moles/Vol] 21 mmol/L Low 22 - 30 mmol/L [facility] [facility] Creatinine [Mass/Vol] 0.65 mg/dL 0.52 - 1.25 mg/dL [facility] eGFR mL/min 60 - P INF mL/min [facility] EGFR IF NonAfrican Luxembourger mL/min 60 - PINF mL/min [facility] Comment on above: KDIGO guidelines pro vide the following GFR categories: Stage GFR(ml/min/1.73 m2) Terms G1 >=90 Normal or high G2 60-89 Mildly decreased* G3a 45-59 Mildly to moderately decreased G3b 30-44 Moderately to severely decreased G4 15-29 Severely decreased G5 <15 Kidney failure *Relative to young adult level. In the absence of evidence of kidney damage, neither GFR category G1 nor G2 fulfill the criteria for CKD. The CKD-EPI equation is validated in individuals 18 years of age and older. Currently the best equation for estimating glomerular filtration rate (GFR) from serum creatinine in children is the Bedside Celis equation. It is less accurate in patients with extremes of muscle mass, restriction of dietary protein, ingestion of creatine, extra-renal metabolism of creatinine, or treatment with medications that affect renal tubular creatinine secretion. Glucose [Mass/Vol] 100 mg/dL 70 - 100 mg/dL [facility] Interpretation and review of laboratory results Abnormal [facility] Potassium [Moles/Vol] 4.5 mmol/L 3.5 - 5.1 mmol/L [facility] Sodium [Moles/Vol] 137 mmol/L 135 - 145 mmol/L [facility] Urea nitrogen (BldV) [Mass/Vol] 14 mg/dL 9 - 20 mg/dL [facility] Test Performed by [facility], [facility] [place] [address] [facility] CBCon 12-13-2021 Hematocrit (Bld) [Volume fraction] 45.4 % 35 - 47 % [facility] Hemoglobin (Bld) [Mass/Vol] 15.7 g/dL 11.7 - 16 g/dL [facility] Interpretation and review of laboratory results Abnormal [facility] MCH (RBC) [Entitic mass] 30.5 pg 26 - 34 pg [facility] MCHC (RBC) [Mass/Vol] 34.6 % 32 - 36 % [facility] MCV (RBC) [Entitic vol] 88.1 fL 79 - 98 fL [facility] Platelet distribution width (Bld) [Ratio] 14.6 % High 11.5 - 14.5 % [facility] Platelet mean volume (Bld) [Entitic vol] 8.0 fL 7.4 - 12.4 fL [facility] Comment on above: MPV is a calculated measurement using platelet volume ratio. Platelets (Bld) [#/Vol] 241 10*3/uL 140 - 440 10*3/uL [facility] RBC (Bld) [#/Vol] 5.15 10*6/uL 3.8 - 5.2 10*6/uL [facility] WBC (Bld) [#/Vol] 7.2 10*3/uL 3.6 - 10.7 10*3/uL [facility] Test Performed by [facility], [facility] [place] [address] [facility] Hemogramon 07-25-2022 Erythrocyte distribution width (RBC) [Ratio] 14.6 % High 11.5-14.5 [facility] Comment on above: Performed By: #### H SHAHEED UREÑA3 #### [place] [address] [address], [place] Hematocrit (Bld) [Volume fraction] 45.4 % Normal 35.0-47.0 [facility] Comment on above: Performed By: #### H SHAHEED UREÑA3 #### [place] [address] [address], [place] Hemoglobin (Bld) [Mass/Vol] 15.7 g/dL Normal 11.7-16.0 [facility] Comment on above: Performed By: #### SHAHEED CALLE3 #### [place] [address] [place], [place] MCH (RBC) [Entitic mass] 30.5 pg Normal 26.0-34.0 [facility] Comment on above: Performed By: #### SHAHEED CALLE3 #### [place] [address] [address], [place] MCHC 34.6 % Normal 32.0-36.0 [facility] Comment on above: Performed By: #### SHAHEED CALLE3 #### [place] [address] [address], [place] MCV (RBC) [Entitic vol] 88.1 fL Normal 79.0-98.0 [facility] Comment on above: Performed By: #### H SHAHEED UREÑA3 #### [place] [address] [address], [place] Platelet mean volume (Bld) [Entitic vol] 8.0 fL Normal 7.4-12.4 [facility] Comment on above: Result Comment: MPV is a calculated measurement using platelet volume ratio. Performed By: #### Fátima UREÑA BMP3 #### [place] [address] [address], [place] Platelets (Bld) [#/Vol] 241 10*3/uL Normal 140-440 [facility] Comment on above: Performed By: #### H EMOG, BMP3 #### [facility] [employer] [address], [place] RBC (Bld) [#/Vol] 5.15 10*6/uL Normal 3.80-5.20 [facility] Comment on above: Performed By: #### H EMOG, BMP3 #### [facility] [employer] [facility] [address], [place] WBC (Bld) [#/Vol] 7.2 10*3/uL Normal 3.6-10.7 [facility] [employer] [facility] Comment on above: Performed By: #### H EMOG, BMP3 #### [facility] [employer] [facility] [address], [place] Basic Metabolic Panel w/ Ref yobany to MGOrdered By: Rajeev Garcia on 01-04-2021 Anion gap [Moles/Vol] 6 mmol/L 3 - 13 mmol/L [employer] Work Phone: Calcium [Mass/Vol] 8.7 mg/dL 8.4 - 10. 4 mg/dL [employer] Work Phone: Chloride [Moles/Vol] 106 mmol/L 98 - 10 7 mmol/L [facility] Work Phone: CO2 [Moles/Vol] 21 mmol/L Low 22 - 30 mmol/L [facility] Work Phone: Creatinine [Mass/Vol] 0.51 mg/dL Low 0.52 - 1.25 mg/dL [facility] Work Phone: EGFR IF NonAfrican Luxembourger >90.0 >60 mL/min [facility] Work Phone: Comment on above: KDIGO guidelines pro vide the following GFR categories: Stage GFR(ml/min/1.73 m2) Terms G1 >=90 Normal or high G2 60-89 Mildly decreased* G3a 45-59 Mildly to moderately decreased G3b 30-44 Moderately to severely decreased G4 15-29 Severely decreased G5 <15 Kidney failure *Relative to young adult level. In the absence of evidence of kidney damage, neither GFR category G1 nor G2 fulfill the criteria for CKD. The CKD-EPI equation is validated in individuals 18 years of age and older. Currently the best equation for estimating glomerular filtration rate (GFR) from serum creatinine in children is the Bedside Celis equation. It is less accurate in patients with extremes of muscle mass, restriction of dietary protein, ingestion of creatine, extra-renal metabolism of creatinine, or treatment with medications that affect renal tubular creatinine secretion. GFR/1.73 sq M.predicted among blacks MDRD (S/P/Bld) [Vol rate/Area] mL/min/{1.73_m2} >60 mL/min [facility] Work Phone: 222 Glucose [Mass/Vol] 83 mg/dL 70 - 100 mg/dL [facility] Work Phone: 222 Interpretation and review of laboratory results Abnormal [facility] Work Phone: 222 Potassium [Moles/Vol] 3.5 mmol/L 3.5 - 5.1 mmol/L [facility] Work Phone: Sodium [Moles/Vol] 133 mmol/L Low 135 - 145 mmol/L [facility] Work Phone: Urea nitrogen (BldV) [Mass/Vol] 7 mg/dL 7 - 20 mg/dL [facility] Work Phone: CBC auto differentialOrdered By: Rajeev Garcia on 01-04-2021 Absolute Baso # 0.0 10*3/uL 0.0 - 0.2 10*3/uL [facility] Work Phone: 222 Absolute Neut # 3.2 10*3/uL 1.8 - 7.0 10*3/uL [facility] Work Phone: 222 Basophils/100 WBC (Bld) 0.6 % 0.0 - 2.0 % [facility] Work Phone: 222 Eosinophils (Bld) [#/Vol] 0.2 10*3/uL 0.0 - 0.5 10*3/uL [facility] Work Phone: 222 Eosinophils/100 WBC (Bld) 3.5 % 1.0 - 6.0 % [facility] Work Phone: 222 Granulocytes/100 WBC (Bld) 59.5 % 40.0 - 80.0 % [facility] Work Phone: 222 Hematocrit (Bld) [Volume fraction] 41.1 % 35.0 - 47.0 % [employer] Work Phone: 1() 222 Hemoglobin.gastrointes tinal spec 1 Ql (Stl) 14.0 g/dL 11.7 - 16.0 g/dL [employer] Work Phone: 1() 222 Lymphocytes (Bld) [#/Vol] 1.5 10*3/uL 1.0 - 4.3 10*3/uL [employer] Work Phone: ) 222 Lymphocytes/100 WBC (Bld) 27.3 % 20.0 - 40.0 % [employer] Work Phone: () 222 MCH (RBC) [Entitic mass] 30.5 pg 26.0 - 34.0 pg [employer] Work Phone: () 222 MCHC (RBC) [Mass/Vol] 34.0 % 32.0 - 36.0 % [employer] Work Phone: () 222 MCV (RBC) [Entitic vol] 89.6 fL 79.0 - 98.0 fL [employer] Work Phone: ) 222 Monocytes (Bld) [#/Vol] 0.5 10*3/uL 0.0 - 0.8 10*3/uL [employer] Work Phone: 1() 222 Monocytes/100 WBC (Bld) 9.1 % 2.0 - 10.0 % [employer] Work Phone: 1() 222 Platelet distribution width (Bld) [Ratio] 13.5 % 11.5 - 14.5 % [employer] Work Phone: ) 222 Platelet mean volume (Bld) [Entitic vol] 8.3 fL 7.4 - 10.4 fL [employer] Work Phone: () 222 Platelets (Bld) [#/Vol] 204 10*3/uL 140 - 440 10*3/uL [employer] Work Phone: () 222 RBC (Bld) [#/Vol] 4.59 10*6/uL 3.80 - 5.2 0 10*6/uL [employer] Work Phone: 1() 222 WBC (Bld) [#/Vol] 5.4 10*3/uL 3.6 - 10.7 10*3/uL [facility] Work Phone: 1 Test Performed by [employer] [facility] [email or web address] [address] [facility] Work Phone: 1 [facility] Work Phone: MagnesiumOrdered By: Rajeev Garcia on 01-04-2021 Magnesium [Mass/Vol] 1.8 mg/dL 1.6 - 2 .3 mg/dL [facility] Work Phone: 1 No Panel InformationOrdered By: Rajeev Garcia on 01-04-2021 Test Performed by [facility] [email or web address] [address] [facility] Work Phone: [facility] Work Phone: PhosphorusOrdered By: Rajeev Garcia on 01-04-2021 Phosphate [Mass/Vol] 3.2 mg/dL 2.5 - 4 .5 mg/dL [facility] Work Phone: 1 Basic Metabolic Panel w/ Ref yobany to MGOrdered By: Rajeev Garcia on 01-03-2021 Anion gap [Moles/Vol] 5 mmol/L 3 - 13 mmol/L [facility] Work Phone: 1 Calcium [Mass/Vol] 8.0 mg/dL Low 8.4 - 10. 4 mg/dL [facility] Work Phone: Chloride [Moles/Vol] 105 mmol/L 98 - 10 7 mmol/L [facility] Work Phone: 222 CO2 [Moles/Vol] 24 mmol/L 22 - 30 mmol/L [facility] Work Phone: 1 Creatinine [Mass/Vol] 0.54 mg/dL 0.52 - 1.25 mg/dL [facility] Work Phone: 1 EGFR IF NonAfrican Luxembourger >90.0 >60 mL/min [facility] Work Phone: 1 Comment on above: KDIGO guidelines pro vide the following GFR categories: Stage GFR(ml/min/1.73 m2) Terms G1 >=90 Normal or high G2 60-89 Mildly decreased* G3a 45-59 Mildly to moderately decreased G3b 30-44 Moderately to severely decreased G4 15-29 Severely decreased G5 <15 Kidney failure *Relative to young adult level. In the absence of evidence of kidney damage, neither GFR category G1 nor G2 fulfill the criteria for CKD. The CKD-EPI equation is validated in individuals 18 years of age and older. Currently the best equation for estimating glomerular filtration rate (GFR) from serum creatinine in children is the Bedside Celis equation. It is less accurate in patients with extremes of muscle mass, restriction of dietary protein, ingestion of creatine, extra-renal metabolism of creatinine, or treatment with medications that affect renal tubular creatinine secretion. GFR/1.73 sq M.predicted among blacks MDRD (S/P/Bld) [Vol rate/Area] mL/min/{1.73_m2} >60 mL/min [facility] Work Phone: ) 222 Glucose [Mass/Vol] 83 mg/dL 70 - 100 mg/dL [employer] Work Phone: 222 Potassium [Moles/Vol] 3.3 mmol/L Low 3.5 - 5.1 mmol/L [employer] Work Phone: 222 Sodium [Moles/Vol] 134 mmol/L Low 135 - 145 mmol/L [employer] Work Phone: 222 Urea nitrogen (BldV) [Mass/Vol] 13 mg/dL 7 - 20 mg/dL [employer] Work Phone: [phone] CBC auto differentialOrdered By: Rajeev Garcia on 01-03-2021 Absolute Baso # 0.0 10*3/uL 0.0 - 0.2 10*3/uL [facility] [employer] Work Phone: ) 222 Absolute Neut # 3.6 10*3/uL 1.8 - 7.0 10*3/uL [employer] Work Phone: 222 Basophils/100 WBC (Bld) 0.4 % 0.0 - 2.0 % [employer] Work Phone: 222 Eosinophils (Bld) [#/Vol] 0.1 10*3/uL 0.0 - 0.5 10*3/uL [employer] Work Phone: 222 Eosinophils/100 WBC (Bld) 2.2 % 1.0 - 6.0 % [facility] Work Phone: 1() 222 Granulocytes/100 WBC (Bld) 66.1 % 40.0 - 80.0 % [facility] Work Phone: 1() 222 Hematocrit (Bld) [Volume fraction] 37.6 % 35.0 - 47.0 % [facility] Work Phone: 1() 222 Hemoglobin.gastrointes tinal spec 1 Ql (Stl) 12.6 g/dL 11.7 - 16.0 g/dL [employer] Work Phone: 1() 222 Lymphocytes (Bld) [#/Vol] 1.3 10*3/uL 1.0 - 4.3 10*3/uL [facility] [employer] Work Phone: () 222 Lymphocytes/100 WBC (Bld) 22.9 % 20.0 - 40.0 % [employer] Work Phone: ) 222 MCH (RBC) [Entitic mass] 29.7 pg 26.0 - 34.0 pg [facility] Work Phone: ) 222 MCHC (RBC) [Mass/Vol] 33.6 % 32.0 - 36.0 % [facility] Work Phone: 1() 222 MCV (RBC) [Entitic vol] 88.4 fL 79.0 - 98.0 fL [employer] Work Phone: ) 222 Monocytes (Bld) [#/Vol] 0.5 10*3/uL 0.0 - 0.8 10*3/uL [facility] Work Phone: 1) 222 Monocytes/100 WBC (Bld) 8.4 % 2.0 - 10.0 % [facility] Work Phone: 1() 222 Platelet distribution width (Bld) [Ratio] 13.9 % 11.5 - 14.5 % [facility] Work Phone: 1() 222 Platelet mean volume (Bld) [Entitic vol] 8.1 fL 7.4 - 10.4 fL [facility] Work Phone: () 222 Platelets (Bld) [#/Vol] 189 10*3/uL 140 - 440 10*3/uL [facility] Work Phone: 1() 222 RBC (Bld) [#/Vol] 4.25 10*6/uL 3.80 - 5.2 0 10*6/uL [facility] Work Phone: WBC (Bld) [#/Vol] 5.5 10*3/uL 3.6 - 10.7 10*3/uL [facility] Work Phone: Test [place] [address] [facility] Work Phone: [facility] Work Phone: 1 MagnesiumOrdered By: Rajeev Garcia on 01-03-2021 Magnesium [Mass/Vol] 1.6 mg/dL 1.6 - 2 .3 mg/dL [facility] Work Phone: No Panel InformationOrdered By: Rajeev Garcia on 01-03-2021 Interpretation and review of laboratory results Abnormal [facility] Work Phone: Test Performed by [employer] [place] [address] [facility] Work Phone: [facility] Work Phone: PhosphorusOrdered By: Rajeev Garcia on 01-03-2021 Phosphate [Mass/Vol] 2.0 mg/dL Low 2.5 - 4 .5 mg/dL [facility] Work Phone: Basic Metabolic Panel w/ Ref yobany to MGOrdered By: Rajeev Garcia on 01-02-2021 Anion gap [Moles/Vol] 10 mmol/L 3 - 13 mmol/L [facility] Work Phone: 222 Calcium [Mass/Vol] 8.9 mg/dL 8.4 - 10. 4 mg/dL [facility] Work Phone: Chloride [Moles/Vol] 108 mmol/L High 98 - 10 7 mmol/L [facility] Work Phone: 222 CO2 [Moles/Vol] 20 mmol/L Low 22 - 30 mmol/L [facility] Work Phone: Creatinine [Mass/Vol] 0.72 mg/dL 0.52 - 1.25 mg/dL [facility] Work Phone: [phone] EGFR IF NonAfrican [place]ger 86.9 mL/min >60 [facility] Work Phone: [phone] Comment on above: KDIGO guidelines pro vide the following GFR categories: Stage GFR(ml/min/1.73 m2) Terms G1 >=90 Normal or high G2 60-89 Mildly decreased* G3a 45-59 Mildly to moderately decreased G3b 30-44 Moderately to severely decreased G4 15-29 Severely decreased G5 <15 Kidney failure *Relative to young adult level. In the absence of evidence of kidney damage, neither GFR category G1 nor G2 fulfill the criteria for CKD. The CKD-EPI equation is validated in individuals 18 years of age and older. Currently the best equation for estimating glomerular filtration rate (GFR) from serum creatinine in children is the Bedside Celis equation. It is less accurate in patients with extremes of muscle mass, restriction of dietary protein, ingestion of creatine, extra-renal metabolism of creatinine, or treatment with medications that affect renal tubular creatinine secretion. GFR/1.73 sq M.predicted among blacks MDRD (S/P/Bld) [Vol rate/Area] mL/min/{1.73_m2} >60 mL/min [facility] Work Phone: [phone] Glucose [Mass/Vol] 129 mg/dL High 70 - 100 mg/dL [facility] [employer] [facility] Work Phone: [phone] Interpretation and review of laboratory results Abnormal [facility] [employer] [facility] Work Phone: [phone] Potassium [Moles/Vol] 4.0 mmol/L 3.5 - 5.1 mmol/L [facility] [employer] Work Phone: Sodium [Moles/Vol] 138 mmol/L 135 - 145 mmol/L [employer] Work Phone: [phone] Urea nitrogen (BldV) [Mass/Vol] 19 mg/dL 7 - 20 mg/dL [facility] [employer] [facility] Work Phone: [phone] CBC auto differentialOrdered By: Rajeev Garcia on 01-02-2021 Absolute Baso # 0.0 10*3/uL 0.0 - 0.2 10*3/uL [facility] Work Phone: Absolute Neut # 9.7 10*3/uL High 1.8 - 7.0 10*3/uL [facility] Work Phone: 1) 222 Basophils/100 WBC (Bld) 0.3 % 0.0 - 2.0 % [facility] Work Phone: ) 222 Eosinophils (Bld) [#/Vol] 0.0 10*3/uL 0.0 - 0.5 10*3/uL [facility] Work Phone: ) 222 Eosinophils/100 WBC (Bld) 0.3 % Low 1.0 - 6.0 % [facility] Work Phone: 1() 222 Granulocytes/100 WBC (Bld) 89.5 % High 40.0 - 80.0 % [employer] Work Phone: 222 Hematocrit (Bld) [Volume fraction] 46.7 % 35.0 - 47.0 % [employer] Work Phone: ) 222 Hemoglobin.gastrointes tinal spec 1 Ql (Stl) 15.9 g/dL 11.7 - 16.0 g/dL [employer] Work Phone: ) 222 Interpretation and review of laboratory results Abnormal [facility] [employer] Work Phone: ) 222 Lymphocytes (Bld) [#/Vol] 0.7 10*3/uL Low 1.0 - 4.3 10*3/uL [facility] Work Phone: ) 222 Lymphocytes/100 WBC (Bld) 6.1 % Low 20.0 - 40.0 % [facility] Work Phone: ) 222 MCH (RBC) [Entitic mass] 30.6 pg 26.0 - 34.0 pg [facility] Work Phone: ) 222 MCHC (RBC) [Mass/Vol] 34.0 % 32.0 - 36.0 % [facility] Work Phone: ) 222 MCV (RBC) [Entitic vol] 90.0 fL 79.0 - 98.0 fL [employer] Work Phone: ) 222 Monocytes (Bld) [#/Vol] 0.4 10*3/uL 0.0 - 0.8 10*3/uL [facility] Work Phone: [phone] Monocytes/100 WBC (Bld) 3.8 % 2.0 - 10.0 % [facility] Work Phone: [phone] Platelet distribution width (Bld) [Ratio] 13.9 % 11.5 - 14.5 % [facility] Work Phone: Platelet mean volume (Bld) [Entitic vol] 7.9 fL 7.4 - 10.4 fL [facility] Work Phone: [phone] Platelets (Bld) [#/Vol] 254 10*3/uL 140 - 440 10*3/uL [facility] Work Phone: [phone] RBC (Bld) [#/Vol] 5.19 10*6/uL 3.80 - 5.2 0 10*6/uL [facility] Work Phone: [phone] WBC (Bld) [#/Vol] 10.9 10*3/uL High 3.6 - 10.7 10*3/uL [facility] Work Phone: [phone] Test Performed by [address] [address] [facility] Work Phone: [phone] [employer] Work Phone: [phone] FL SMALL BOWELOrdered By: Chaim Garcia on 01-02-2021 Patient Name: LINDA KIM Fluoroscopy ACCESSION EXAM DATE/TIME PROCEDURE ORDERING PROVIDER [id number] 01/02/2021 09:45 EDT RF Small Bowel w/ Serial [id number] Kristin REAVES CPT code 71564 Reason For Exam (RF Small Bowel w/ Serial Films) concern for SBO Report SMALL BOWEL SERIES: CLINICAL INDICATION: Small bowel obstruction. Nausea and vomiting. 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 COMPARISON: 10/29/2020 TECHNIQUE: Gastrografin was administered by existing nasogastric tube per ordering physician request. Serial images were obtained up to and including 19 hours. Spot images of the terminal ileum were obtained. No fluoroscopy was utilized for this examination. 12 images were taken. FINDINGS: Preliminary image demonstrates an ostomy overlying the right iliac crest. There is marked dilatation of the proximal and mid small bowel. The distal small bowel appears decompressed. No mucosal abnormality is identified. Contrast is seen within the colon at 19 hours. IMPRESSION: Finding suggesting high-grade partial small bowel obstruction, most likely due to adhesions. Report Dictated on --- Final --- Dictated: 01/02/2021 10:32 am Dictating Physician: MD CARRASCO JONATHAN R Signed Date and Time: 01/02/2021 10:55 am Signed by: MD CARRASCO JONATHAN R Transcribed Date and Time: 01/02/2021 10:35 [facility] Work Phone: [facility], [facility] Incoming [facility] From [facility] - 01/02/2021 10:56 AM EDT Patient Name: LINDA KIM Fluoroscopy ACCESSION EXAM DATE/TIME PROCEDURE ORDERING PROVIDER [id number] 01/02/2021 09:45 EDT RF Small Bowel w/ Serial [id number] -MARGIOTTA, Films [id number] CPT code 82718 Reason For Exam (RF Small Bowel w/ Serial Films) concern for SBO Report SMALL BOWEL SERIES: CLINICAL INDICATION: Small bowel obstruction. Nausea and vomiting. 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 COMPARISON: 10/29/2020 TECHNIQUE: Gastrografin was administered by existing nasogastric tube per ordering physician request. Serial images were obtained up to and including 19 hours. Spot images of the terminal ileum were obtained. No fluoroscopy was utilized for this examination. 12 images were taken. FINDINGS: Preliminary image demonstrates an ostomy overlying the right iliac crest. There is marked dilatation of the proximal and mid small bowel. The distal small bowel appears decompressed. No mucosal abnormality is identified. Contrast is seen within the colon at 19 hours. IMPRESSION: Finding suggesting high-grade partial small bowel obstruction, most likely due to adhesions. Report Dictated on --- Final --- Dictated: 01/02/2021 10:32 am Dictating Physician: MD CARRASCO JONATHAN R Signed Date and Time: 01/02/2021 10:55 am Signed by: MD CARRASCO JONATHAN R Transcribed Date and Time: 01/02/2021 10:35 [facility] Work Phone: 1 [facility] Work Phone: 1 MagnesiumOrdered By: Rajeev Garcia on 01-02-2021 Magnesium [Mass/Vol] 1.7 mg/dL 1.6 - 2 .3 mg/dL [facility] Work Phone: 1 No Panel InformationOrdered By: Rajeev Garcia on 01-02-2021 Test Performed by [facility], [address] [place] [id number] [facility] Work Phone: 1 [facility] Work Phone: 1 PhosphorusOrdered By: Rajeev Garcia on 01-02-2021 Phosphate [Mass/Vol] 3.2 mg/dL 2.5 - 4 .5 mg/dL [facility] Work Phone: 1 CBC Auto DifferentialOrdered By: Rajeev Garcia on 01-01-2021 Absolute Baso # 0.1 10*3/uL 0.0 - 0.2 10*3/uL [facility] Work Phone: 1 Absolute Neut # 7.9 10*3/uL High 1.8 - 7.0 10*3/uL [facility] Work Phone: 1 222 Basophils/100 WBC (Bld) 0.8 % 0.0 - 2.0 % [facility] Work Phone: 222 Eosinophils (Bld) [#/Vol] 0.0 10*3/uL 0.0 - 0.5 10*3/uL [facility] Work Phone: 1 222 Eosinophils/100 WBC (Bld) 0.1 % Low 1.0 - 6.0 % [facility] Work Phone: 222 Granulocytes/100 WBC (Bld) 87.2 % High 40.0 - 80.0 % [facility] Work Phone: 1 222 Hematocrit (Bld) [Volume fraction] 42.0 % 35.0 - 47.0 % [facility] Work Phone: 222 Hemoglobin.gastrointes tinal spec 1 Ql (Stl) 14.3 g/dL 11.7 - 16.0 g/dL [facility] Work Phone: 1() 222 Interpretation and review of laboratory results Abnormal [facility] Work Phone: 1() 222 Lymphocytes (Bld) [#/Vol] 0.7 10*3/uL Low 1.0 - 4.3 10*3/uL [employer] Work Phone: 1() 222 Lymphocytes/100 WBC (Bld) 7.5 % Low 20.0 - 40.0 % [employer] Work Phone: () 222 MCH (RBC) [Entitic mass] 30.1 pg 26.0 - 34.0 pg [employer] Work Phone: ) 222 MCHC (RBC) [Mass/Vol] 34.0 % 32.0 - 36.0 % [facility] Work Phone: () 222 MCV (RBC) [Entitic vol] 88.4 fL 79.0 - 98.0 fL [employer] Work Phone: ) 222 Monocytes (Bld) [#/Vol] 0.4 10*3/uL 0.0 - 0.8 10*3/uL [employer] Work Phone: 1() 222 Monocytes/100 WBC (Bld) 4.4 % 2.0 - 10.0 % [facility] Work Phone: ) 222 Platelet distribution width (Bld) [Ratio] 13.8 % 11.5 - 14.5 % [facility] Work Phone: () 222 Platelet mean volume (Bld) [Entitic vol] 8.0 fL 7.4 - 10.4 fL [employer] Work Phone: () 222 Platelets (Bld) [#/Vol] 255 10*3/uL 140 - 440 10*3/uL [facility] [employer] Work Phone: () 222 RBC (Bld) [#/Vol] 4.75 10*6/uL 3.80 - 5.2 0 10*6/uL [facility] [employer] Work Phone: () 222 WBC (Bld) [#/Vol] 9.1 10*3/uL 3.6 - 10.7 10*3/uL [employer] Work Phone: 1() Test Performed by [facility], [address] [place] [id number] [facility] Work Phone: [facility] Work Phone: Comprehensive Metabolic Pane lOrdered By: Rajeev Garcia on 01-01-2021 Albumin [Mass/Vol] 4.0 g/dL 3.5 - 5.0 g/dL [facility] Work Phone: Comment on above: Slightly hemolysed, interpret with caution. ALP (Bld) [Catalytic activity/Vol] 77 U/L 38 - 126 U/L [facility] Work Phone: Comment on above: Slightly hemolysed, interpret with caution. ALT [Catalytic activity/Vol] 12 U/L 0 - 34 U/L [facility] Work Phone: Comment on above: The ALT test is perf ormed by an updated assay method. Please note that the reference intervals have been changed and are now sex specific. Anion gap [Moles/Vol] 7 mmol/L 3 - 13 mmol/L [facility] Work Phone: AST [Catalytic activity/Vol] 35 U/L 15 - 46 U/L [facility] Work Phone: Comment on above: Slightly hemolysed, interpret with caution. Bilirubin [Mass/Vol] 0.8 mg/dL 0.2 - 1 .3 mg/dL [facility] Work Phone: Comment on above: Slightly hemolysed, interpret with caution. Calcium [Mass/Vol] 8.9 mg/dL 8.4 - 10. 4 mg/dL [facility] Work Phone: Chloride [Moles/Vol] 108 mmol/L High 98 - 10 7 mmol/L [facility] Work Phone: CO2 [Moles/Vol] 19 mmol/L Low 22 - 30 mmol/L [facility] Work Phone: Creatinine [Mass/Vol] 0.51 mg/dL Low 0.52 - 1.25 mg/dL [facility] Work Phone: EGFR IF NonAfrican Luxembourger >90.0 >60 mL/min [facility] Work Phone: Comment on above: KDIGO guidelines pro vide the following GFR categories: Stage GFR(ml/min/1.73 m2) Terms G1 >=90 Normal or high G2 60-89 Mildly decreased* G3a 45-59 Mildly to moderately decreased G3b 30-44 Moderately to severely decreased G4 15-29 Severely decreased G5 <15 Kidney failure *Relative to young adult level. In the absence of evidence of kidney damage, neither GFR category G1 nor G2 fulfill the criteria for CKD. The CKD-EPI equation is validated in individuals 18 years of age and older. Currently the best equation for estimating glomerular filtration rate (GFR) from serum creatinine in children is the Bedside Celis equation. It is less accurate in patients with extremes of muscle mass, restriction of dietary protein, ingestion of creatine, extra-renal metabolism of creatinine, or treatment with medications that affect renal tubular creatinine secretion. Free PSA/Total PSA [Mass fraction] 7.3 g/dL 6.3 - 8.2 g/dL [facility] Work Phone: Comment on above: Slightly hemolysed, interpret with caution. GFR/1.73 sq M.predicted among blacks MDRD (S/P/Bld) [Vol rate/Area] mL/min/{1.73_m2} >60 mL/min [facility] Work Phone: Glucose [Mass/Vol] 115 mg/dL High 70 - 100 mg/dL [facility] Work Phone: Interpretation and review of laboratory results Abnormal [facility] Work Phone: Potassium [Moles/Vol] 4.8 mmol/L 3.5 - 5.1 mmol/L [facility] Work Phone: Comment on above: Slightly hemolysed, interpret with caution. Sodium [Moles/Vol] 134 mmol/L Low 135 - 145 mmol/L [facility] Work Phone: Urea nitrogen (BldV) [Mass/Vol] 12 mg/dL 7 - 20 mg/dL [facility] Work Phone: LACTIC ACID, PLASMAOrdered B y: aRjeev Garcia on 01-01-2021 Lactate [Moles/Vol] 0.9 mmol/L 0.7 - 2. 0 mmol/L [facility] Work Phone: Test Performed by [facility], [address] [place] [address] [facility] Work Phone: [phone] [facility] Work Phone: [phone] MagnesiumOrdered By: Rajeev Garcia on 01-01-2021 Magnesium [Mass/Vol] 1.7 mg/dL 1.6 - 2 .3 mg/dL [facility] Work Phone: [phone] Comment on above: Slightly hemolysed, interpret with caution. No Panel InformationOrdered By: Rajeev Garcia on 01-01-2021 Test Performed by [facility], [address] [place] [address] [facility] Work Phone: [phone] [facility] Work Phone: [phone] PhosphorusOrdered By: Rajeev Garcia on 01-01-2021 Phosphate [Mass/Vol] 4.0 mg/dL 2.5 - 4 .5 mg/dL [facility] Work Phone: Comment on above: Slightly hemolysed, interpret with caution. XR ABDOMEN (KUB) (SINGLE AP VIEW)Ordered By: Philip Smiley on 01-01-2021 Patient Name: LINDA KIM Diagnostic Radiology ACCESSION EXAM DATE/TIME PROCEDURE ORDERING PROVIDER [id number] 01/01/2021 01:14 EDT CR Abdomen AP [id number] PHILIP HSIEH CPT code 72728 Reason For Exam (CR Abdomen AP) NGT placement Report CLINICAL INFORMATION: Abdominal pain and distention. NG tube. KUB is provided. FINDINGS: An NG tube is in place with its tip in the body of the body/fundus of the stomach. There is moderate dilatation of small bowel loops. IMPRESSION: 1. NG tube with its tip in the body/fundus of the stomach. 2. Moderate dilatation of small bowel loops. Report Dictated on --- Final --- Dictated: 01/01/2021 1:09 am Dictating Physician: MD CHRISTINE JEFFREY Signed Date and Time: 01/01/2021 1:10 am Signed by: MD CHRISTINE JEFFREY Transcribed Date and Time: 01/01/2021 1:09 [facility] Work Phone: [facility], [facility] From [facility] - 01/01/2021 1:14 AM EDT [facility]: [id number] ACCESSION EXAM DATE/TIME PROCEDURE ORDERING PROVIDER [id number] 01/01/2021 01:14 EDT CR Abdomen AP [id number] -MARLEN, ANEIL CPT code 01995 Reason For Exam (CR Abdomen AP) NGT placement Report CLINICAL INFORMATION: Abdominal pain and distention. NG tube. KUB is provided. FINDINGS: An NG tube is in place with its tip in the body of the body/fundus of the stomach. There is moderate dilatation of small bowel loops. IMPRESSION: 1. NG tube with its tip in the body/fundus of the stomach. 2. Moderate dilatation of small bowel loops. Report Dictated on --- Final --- Dictated: 01/01/2021 1:09 am Dictating Physician: MD CHRISTINE JEFFREY Signed Date and Time: 01/01/2021 1:10 am Signed by: MD CHRISTINE JEFFREY Transcribed Date and Time: 01/01/2021 1:09 [facility] Work Phone: [facility] Work Phone: Basic Metabolic PanelOrdered By: Erika Holden on 11-02-2020 Anion gap [Moles/Vol] 7 mmol/L 3 - 13 mmol/L [facility] Work Phone: Calcium [Mass/Vol] 9.1 mg/dL 8.4 - 10. 4 mg/dL [facility] Work Phone: Chloride [Moles/Vol] 98 mmol/L 98 - 10 7 mmol/L [facility] Work Phone: CO2 [Moles/Vol] 28 mmol/L 22 - 30 mmol/L [facility] Work Phone: Creatinine [Mass/Vol] 0.49 mg/dL Low 0.52 - 1.25 mg/dL [facility] Work Phone: EGFR IF NonAfrican Luxembourger >90.0 >60 mL/min [facility] Work Phone: 4 Comment on above: KDIGO guidelines pro vide the following GFR categories: Stage GFR(ml/min/1.73 m2) Terms G1 >=90 Normal or high G2 60-89 Mildly decreased* G3a 45-59 Mildly to moderately decreased G3b 30-44 Moderately to severely decreased G4 15-29 Severely decreased G5 <15 Kidney failure *Relative to young adult level. In the absence of evidence of kidney damage, neither GFR category G1 nor G2 fulfill the criteria for CKD. The CKD-EPI equation is validated in individuals 18 years of age and older. Currently the best equation for estimating glomerular filtration rate (GFR) from serum creatinine in children is the Bedside Celis equation. It is less accurate in patients with extremes of muscle mass, restriction of dietary protein, ingestion of creatine, extra-renal metabolism of creatinine, or treatment with medications that affect renal tubular creatinine secretion. GFR/1.73 sq M.predicted among blacks MDRD (S/P/Bld) [Vol rate/Area] mL/min/{1.73_m2} >60 mL/min [facility] Work Phone: Glucose [Mass/Vol] 121 mg/dL High 70 - 100 mg/dL [facility] Work Phone: -[phone] Interpretation and review of laboratory results Abnormal [facility] Work Phone: 222 Potassium [Moles/Vol] 3.6 mmol/L 3.5 - 5.1 mmol/L [facility] Work Phone: 222 Sodium [Moles/Vol] 133 mmol/L Low 135 - 145 mmol/L [facility] Work Phone: 222 Urea nitrogen (BldV) [Mass/Vol] 9 mg/dL 7 - 20 mg/dL [facility] Work Phone: 8 CBC Auto DifferentialOrdered By: Erika Holden on 11-02-2020 Absolute Baso # 0.0 10*3/uL 0.0 - 0.2 10*3/uL [facility] Work Phone: Absolute Neut # 2.2 10*3/uL 1.8 - 7.0 10*3/uL [facility] Work Phone: 1() 222 Basophils/100 WBC (Bld) 0.2 % 0.0 - 2.0 % [facility] Work Phone: 1() 222 Eosinophils (Bld) [#/Vol] 0.1 10*3/uL 0.0 - 0.5 10*3/uL [facility] Work Phone: 1() 222 Eosinophils/100 WBC (Bld) 3.3 % 1.0 - 6.0 % [facility] Work Phone: 1() 222 Granulocytes/100 WBC (Bld) 64.1 % 40.0 - 80.0 % [facility] Work Phone: Hematocrit (Bld) [Volume fraction] 44.0 % 35.0 - 47.0 % [facility] Work Phone: 1) 222 Hemoglobin.gastrointes tinal spec 1 Ql (Stl) 15.4 g/dL 11.7 - 16.0 g/dL [facility] Work Phone: 1) 222 Interpretation and review of laboratory results Abnormal [facility] [employer] Work Phone: 1() 222 Lymphocytes (Bld) [#/Vol] 0.7 10*3/uL Low 1.0 - 4.3 10*3/uL [facility] Work Phone: 1) 222 Lymphocytes/100 WBC (Bld) 19.4 % Low 20.0 - 40.0 % [facility] Work Phone: ) 222 MCH (RBC) [Entitic mass] 30.8 pg 26.0 - 34.0 pg [facility] Work Phone: 1) 222 MCHC (RBC) [Mass/Vol] 35.0 % 32.0 - 36.0 % [facility] Work Phone: 1) 222 MCV (RBC) [Entitic vol] 88.1 fL 79.0 - 98.0 fL [facility] Work Phone: 1) 222 Monocytes (Bld) [#/Vol] 0.4 10*3/uL 0.0 - 0.8 10*3/uL [facility] Work Phone: 1() 222 Monocytes/100 WBC (Bld) 13.0 % High 2.0 - 10.0 % [facility] Work Phone: 1( Platelet distribution width (Bld) [Ratio] 13.5 % 11.5 - 14.5 % [facility] Work Phone: 1( Platelet mean volume (Bld) [Entitic vol] 8.3 fL 7.4 - 10.4 fL [facility] Work Phone: Platelets (Bld) [#/Vol] 159 10*3/uL 140 - 440 10*3/uL [facility] Work Phone: 1() RBC (Bld) [#/Vol] 4.99 10*6/uL 3.80 - 5.2 0 10*6/uL [facility] Work Phone: 1() WBC (Bld) [#/Vol] 3.4 10*3/uL Low 3.6 - 10.7 10*3/uL [facility] Work Phone: [place] [address] [facility] Work Phone: 1 [facility] Work Phone: 1 MagnesiumOrdered By: Erika Holden on 11-02-2020 Magnesium [Mass/Vol] 1.7 mg/dL 1.6 - 2 .3 mg/dL [facility] Work Phone: 1 No Panel InformationOrdered By: Erika Holden on 11-02-2020 Test Performed by [facility] [place] [address] [facility] Work Phone: [facility] Work Phone: 1 PhosphorusOrdered By: Erika Holden on 11-02-2020 Phosphate [Mass/Vol] 2.8 mg/dL 2.5 - 4 .5 mg/dL [facility] Work Phone: 1) Basic Metabolic PanelOrdered By: Erika Holden on 11-01-2020 Anion gap [Moles/Vol] 2 mmol/L Low 3 - 13 mmol/L [facility] Work Phone: Calcium [Mass/Vol] 8.6 mg/dL 8.4 - 10. 4 mg/dL [facility] Work Phone: [phone] Chloride [Moles/Vol] 102 mmol/L 98 - 10 7 mmol/L [facility] Work Phone: [phone] CO2 [Moles/Vol] 28 mmol/L 22 - 30 mmol/L [facility] Work Phone: [phone] Creatinine [Mass/Vol] 0.53 mg/dL 0.52 - 1.25 mg/dL [facility] Work Phone: [phone] EGFR IF NonAfrican Luxembourger >90.0 >60 mL/min [facility] Work Phone: [phone] Comment on above: KDIGO guidelines pro vide the following GFR categories: Stage GFR(ml/min/1.73 m2) Terms G1 >=90 Normal or high G2 60-89 Mildly decreased* G3a 45-59 Mildly to moderately decreased G3b 30-44 Moderately to severely decreased G4 15-29 Severely decreased G5 <15 Kidney failure *Relative to young adult level. In the absence of evidence of kidney damage, neither GFR category G1 nor G2 fulfill the criteria for CKD. The CKD-EPI equation is validated in individuals 18 years of age and older. Currently the best equation for estimating glomerular filtration rate (GFR) from serum creatinine in children is the Bedside Celis equation. It is less accurate in patients with extremes of muscle mass, restriction of dietary protein, ingestion of creatine, extra-renal metabolism of creatinine, or treatment with medications that affect renal tubular creatinine secretion. GFR/1.73 sq M.predicted among blacks MDRD (S/P/Bld) [Vol rate/Area] mL/min/{1.73_m2} >60 mL/min [facility] Work Phone: Glucose [Mass/Vol] 105 mg/dL High 70 - 100 mg/dL [facility] Work Phone: [phone] Potassium [Moles/Vol] 3.6 mmol/L 3.5 - 5.1 mmol/L [facility] Work Phone: [phone] Sodium [Moles/Vol] 133 mmol/L Low 135 - 145 mmol/L [facility] Work Phone: [phone] Urea nitrogen (BldV) [Mass/Vol] 10 mg/dL 7 - 20 mg/dL [facility] Work Phone: [phone] CBC Auto DifferentialOrdered By: Erika Holden on 11-01-2020 Absolute Baso # 0.0 10*3/uL 0.0 - 0.2 10*3/uL [facility] Work Phone: [phone] Absolute Neut # 2.3 10*3/uL 1.8 - 7.0 10*3/uL [facility] Work Phone: [phone] Basophils/100 WBC (Bld) 0.2 % 0.0 - 2.0 % [facility] Work Phone: [phone] Eosinophils (Bld) [#/Vol] 0.1 10*3/uL 0.0 - 0.5 10*3/uL [facility] Work Phone: [phone] Eosinophils/100 WBC (Bld) 2.5 % 1.0 - 6.0 % [facility] Work Phone: 1) 222 Granulocytes/100 WBC (Bld) 63.1 % 40.0 - 80.0 % [facility] Work Phone: [phone] Hematocrit (Bld) [Volume fraction] 40.3 % 35.0 - 47.0 % [facility] Work Phone: [phone] Hemoglobin.gastrointes tinal spec 1 Ql (Stl) 13.7 g/dL 11.7 - 16.0 g/dL [facility] Work Phone: [phone] Interpretation and review of laboratory results Abnormal [facility] Work Phone: [phone] Lymphocytes (Bld) [#/Vol] 0.7 10*3/uL Low 1.0 - 4.3 10*3/uL [facility] Work Phone: [phone] Lymphocytes/100 WBC (Bld) 20.7 % 20.0 - 40.0 % [facility] Work Phone: [phone] MCH (RBC) [Entitic mass] 30.7 pg 26.0 - 34.0 pg [facility] Work Phone: [phone] MCHC (RBC) [Mass/Vol] 34.1 % 32.0 - 36.0 % [facility] Work Phone: [phone] MCV (RBC) [Entitic vol] 90.0 fL 79.0 - 98.0 fL [facility] Work Phone: 1) 222 Monocytes (Bld) [#/Vol] 0.5 10*3/uL 0.0 - 0.8 10*3/uL [facility] Work Phone: 1) 222 Monocytes/100 WBC (Bld) 13.5 % High 2.0 - 10.0 % [facility] Work Phone: 1 Platelet distribution width (Bld) [Ratio] 13.8 % 11.5 - 14.5 % [facility] Work Phone: 1) 222 Platelet mean volume (Bld) [Entitic vol] 7.8 fL 7.4 - 10.4 fL [facility] Work Phone: 1 222 Platelets (Bld) [#/Vol] 151 10*3/uL 140 - 440 10*3/uL [facility] Work Phone: 222 RBC (Bld) [#/Vol] 4.48 10*6/uL 3.80 - 5.2 0 10*6/uL [facility] Work Phone: 1) 222 WBC (Bld) [#/Vol] 3.6 10*3/uL 3.6 - 10.7 10*3/uL [facility] Work Phone: Test Performed by [facility], [facility] [place] [place] [address] [facility] Work Phone: [facility] Work Phone: MagnesiumOrdered By: Erika Holden on 11-01-2020 Magnesium [Mass/Vol] 1.8 mg/dL 1.6 - 2 .3 mg/dL [facility] Work Phone: [phone] No Panel InformationOrdered By: Erika Holden on 11-01-2020 Interpretation and review of laboratory results Abnormal [facility] Work Phone: Test Performed by [facility], [address] [place] [address] [facility] Work Phone: [facility] Work Phone: PhosphorusOrdered By: Erika Holden on 11-01-2020 Phosphate [Mass/Vol] 2.2 mg/dL Low 2.5 - 4 .5 mg/dL [facility] Work Phone: XR ABDOMEN (KUB) (SINGLE AP VIEW)Ordered By: Merlin Palmer on 11-01-2020 Patient Name: LINDA FAGAN Diagnostic Radiology ACCESSION EXAM DATE/TIME PROCEDURE ORDERING PROVIDER [id number] 11/01/2020 12:45 EDT CR Abdomen AP [id number] IsidroPALMERMERLIN CPT code 49963 Reason For Exam (CR Abdomen AP) distension Report Indication: Distention. Findings and impression: Portable abdomen single view. Distended large and small bowel. Visual contrast media. The caliber bowel appears greater especially portions of the transverse colon. Questionable narrowing of the descending colon. Consider follow-up or Report Dictated on --- Final --- Dictated: 11/01/2020 2:25 pm Dictating Physician: MD RODAS JOHN Signed Date and Time: 11/01/2020 2:27 pm Signed by: MD RODAS JOHN Transcribed Date and Time: 11/01/2020 2:25 [facility] Work [facility]: [place], [facility] Incoming Radiology Results From [facility] - 11/01/2020 2:28 PM EDT Patient Name: LINDA KIM Diagnostic Radiology ACCESSION EXAM DATE/TIME PROCEDURE ORDERING PROVIDER [id number] 11/01/2020 12:45 EDT CR Abdomen AP [id number] MERLIN RUIZ CPT code 67614 Reason For Exam (CR Abdomen AP) distension Report Indication: Distention. Findings and impression: Portable abdomen single view. Distended large and small bowel. Visual contrast media. The caliber bowel appears greater especially portions of the transverse colon. Questionable narrowing of the descending colon. Consider follow-up or Report Dictated on --- Final --- Dictated: 11/01/2020 2:25 pm Dictating Physician: MD RODAS JOHN Signed Date and Time: 11/01/2020 2:27 pm Signed by: MD RODAS JOHN Transcribed Date and Time: 11/01/2020 2:25 [facility] Work Phone: [facility] Work Phone: Basic Metabolic PanelOrdered By: Erika Holden on 10-31-2020 Anion gap [Moles/Vol] 5 mmol/L 3 - 13 mmol/L [facility] Work Phone: Calcium [Mass/Vol] 8.9 mg/dL 8.4 - 10. 4 mg/dL [facility] Work Phone: Chloride [Moles/Vol] 109 mmol/L High 98 - 10 7 mmol/L [facility] Work Phone: CO2 [Moles/Vol] 26 mmol/L 22 - 30 mmol/L [facility] Work Phone: Creatinine [Mass/Vol] 0.63 mg/dL 0.52 - 1.25 mg/dL [facility] Work Phone: EGFR IF NonAfrican Luxembourger >90.0 >60 mL/min [facility] Work Phone: Comment on above: KDIGO guidelines pro vide the following GFR categories: Stage GFR(ml/min/1.73 m2) Terms G1 >=90 Normal or high G2 60-89 Mildly decreased* G3a 45-59 Mildly to moderately decreased G3b 30-44 Moderately to severely decreased G4 15-29 Severely decreased G5 <15 Kidney failure *Relative to young adult level. In the absence of evidence of kidney damage, neither GFR category G1 nor G2 fulfill the criteria for CKD. The CKD-EPI equation is validated in individuals 18 years of age and older. Currently the best equation for estimating glomerular filtration rate (GFR) from serum creatinine in children is the Bedside Celis equation. It is less accurate in patients with extremes of muscle mass, restriction of dietary protein, ingestion of creatine, extra-renal metabolism of creatinine, or treatment with medications that affect renal tubular creatinine secretion. GFR/1.73 sq M.predicted among blacks MDRD (S/P/Bld) [Vol rate/Area] mL/min/{1.73_m2} >60 mL/min [facility] Work Phone: Glucose [Mass/Vol] 135 mg/dL High 70 - 100 mg/dL [facility] Work Phone: 1 Interpretation and review of laboratory results Abnormal [facility] Work Phone: 1) 222 Potassium [Moles/Vol] 4.5 mmol/L 3.5 - 5.1 mmol/L [facility] Work Phone: 1) 222 Sodium [Moles/Vol] 141 mmol/L 135 - 145 mmol/L [facility] Work Phone: 1) 222 Urea nitrogen (BldV) [Mass/Vol] 27 mg/dL High 7 - 20 mg/dL [facility] Work Phone: 1 222 CBC Auto DifferentialOrdered By: Erika Holden on 10-31-2020 Absolute Baso # 0.0 10*3/uL 0.0 - 0.2 10*3/uL [facility] Work Phone: 1) 222 Absolute Neut # 4.8 10*3/uL 1.8 - 7.0 10*3/uL [facility] Work Phone: ) 222 Basophils/100 WBC (Bld) 0.1 % 0.0 - 2.0 % [facility] Work Phone: 222 Eosinophils (Bld) [#/Vol] 0.0 10*3/uL 0.0 - 0.5 10*3/uL [facility] Work Phone: 1) 222 Eosinophils/100 WBC (Bld) 0.0 % Low 1.0 - 6.0 % [facility] Work Phone: ) 222 Granulocytes/100 WBC (Bld) 77.3 % 40.0 - 80.0 % [facility] Work Phone: 1 222 Hematocrit (Bld) [Volume fraction] 38.9 % 35.0 - 47.0 % [facility] Work Phone: ) 222 Hemoglobin.gastrointes tinal spec 1 Ql (Stl) 13.1 g/dL 11.7 - 16.0 g/dL [facility] Work Phone: [phone] Interpretation and review of laboratory results Abnormal [facility] [employer] Work Phone: 1) 222 Lymphocytes (Bld) [#/Vol] 0.7 10*3/uL Low 1.0 - 4.3 10*3/uL [facility] Work Phone: 1() 222 Lymphocytes/100 WBC (Bld) 10.6 % Low 20.0 - 40.0 % [facility] Work Phone: 1() 222 MCH (RBC) [Entitic mass] 30.9 pg 26.0 - 34.0 pg [facility] Work Phone: 1() 222 MCHC (RBC) [Mass/Vol] 33.7 % 32.0 - 36.0 % [facility] Work Phone: 1() 222 MCV (RBC) [Entitic vol] 91.6 fL 79.0 - 98.0 fL [facility] Work Phone: () 222 Monocytes (Bld) [#/Vol] 0.7 10*3/uL 0.0 - 0.8 10*3/uL [facility] Work Phone: 1() 222 Monocytes/100 WBC (Bld) 12.0 % High 2.0 - 10.0 % [facility] Work Phone: 1() 222 Platelet distribution width (Bld) [Ratio] 14.4 % 11.5 - 14.5 % [facility] Work Phone: 1() 222 Platelet mean volume (Bld) [Entitic vol] 8.6 fL 7.4 - 10.4 fL [facility] Work Phone: 1() 222 Platelets (Bld) [#/Vol] 166 10*3/uL 140 - 440 10*3/uL [facility] Work Phone: () 222 RBC (Bld) [#/Vol] 4.25 10*6/uL 3.80 - 5.2 0 10*6/uL [facility] Work Phone: [phone] WBC (Bld) [#/Vol] 6.2 10*3/uL 3.6 - 10.7 10*3/uL [facility] Work Phone: [phone] Test Performed by [facility], [address] [place] [address] [facility] Work Phone: 1() 222 [facility] Work Phone: 1() 222 MagnesiumOrdered By: Erika Holden on 10-31-2020 Magnesium [Mass/Vol] 2.1 mg/dL 1.6 - 2 .3 mg/dL [facility] Work Phone: No Panel InformationOrdered By: Erika Holden on 10-31-2020 Test Performed by [facility], [address] [place] [address] [facility] Work Phone: [facility] Work Phone: PhosphorusOrdered By: Erika Holden on 10-31-2020 Phosphate [Mass/Vol] 3.0 mg/dL 2.5 - 4 .5 mg/dL [facility] Work Phone: XR ABDOMEN (KUB) (SINGLE AP VIEW)Ordered By: Ruben Neil on 10-31-2020 Patient Name: LINDA KIM Diagnostic Radiology ACCESSION EXAM DATE/TIME PROCEDURE ORDERING PROVIDER [id number] 10/31/2020 10:59 EDT CR Abdomen AP RUBEN NEIL CPT code 57231 Reason For Exam (CR Abdomen AP) ngt position Report HISTORY: Bowel obstruction check NGT The previously administered contrast has advanced to the colon. Continued dilated small bowel loops NGT position unchanged since abdomen film last night Report Dictated on --- Final --- Dictated: 10/31/2020 11:26 am Dictating Physician: MD LÓPEZ WILLIAM Signed Date and Time: 10/31/2020 11:31 am Signed by: MD LÓPEZ WILLIAM Transcribed Date and Time: 10/31/2020 11:26 [facility] Work Phone: [facility], [facility] Incoming Radiology Results From [facility] - 10/31/2020 11:32 AM EDT Patient Name: LINDA KIM Diagnostic Radiology ACCESSION EXAM DATE/TIME PROCEDURE ORDERING PROVIDER [id number] 10/31/2020 10:59 EDT CR Abdomen AP RUBEN NEIL CPT code 20342 Reason For Exam (CR Abdomen AP) ngt position Report HISTORY: Bowel obstruction check NGT The previously administered contrast has advanced to the colon. Continued dilated small bowel loops NGT position unchanged since abdomen film last night Report Dictated on --- Final --- Dictated: 10/31/2020 11:26 am Dictating Physician: MD LÓPEZ WILLIAM Signed Date and Time: 10/31/2020 11:31 am Signed by: MD LÓPEZ WILLIAM Transcribed Date and Time: 10/31/2020 11:26 [facility] Work Phone: [facility] Work Phone: Basic Metabolic PanelOrdered By: Erika Holden on 10-30-2020 Anion gap [Moles/Vol] 8 mmol/L 3 - 13 mmol/L [facility] Work Phone: Calcium [Mass/Vol] 9.6 mg/dL 8.4 - 10. 4 mg/dL [facility] Work Phone: [phone] Chloride [Moles/Vol] 105 mmol/L 98 - 10 7 mmol/L [facility] Work Phone: CO2 [Moles/Vol] 25 mmol/L 22 - 30 mmol/L [facility] Work Phone: Creatinine [Mass/Vol] 0.97 mg/dL 0.52 - 1.25 mg/dL [facility] Work Phone: EGFR IF NonAfrican Luxembourger 60.7 mL/min >60 [facility] Work Phone: Comment on above: KDIGO guidelines pro vide the following GFR categories: Stage GFR(ml/min/1.73 m2) Terms G1 >=90 Normal or high G2 60-89 Mildly decreased* G3a 45-59 Mildly to moderately decreased G3b 30-44 Moderately to severely decreased G4 15-29 Severely decreased G5 <15 Kidney failure *Relative to young adult level. In the absence of evidence of kidney damage, neither GFR category G1 nor G2 fulfill the criteria for CKD. The CKD-EPI equation is validated in individuals 18 years of age and older. Currently the best equation for estimating glomerular filtration rate (GFR) from serum creatinine in children is the Bedside Celis equation. It is less accurate in patients with extremes of muscle mass, restriction of dietary protein, ingestion of creatine, extra-renal metabolism of creatinine, or treatment with medications that affect renal tubular creatinine secretion. GFR/1.73 sq M.predicted among blacks MDRD (S/P/Bld) [Vol rate/Area] 70.3 mL/min/{1.73_m2} >60 [facility] Work Phone: Glucose [Mass/Vol] 139 mg/dL High 70 - 100 mg/dL [facility] Work Phone: Interpretation and review of laboratory results Abnormal [facility] Work Phone: Potassium [Moles/Vol] 4.4 mmol/L 3.5 - 5.1 mmol/L [facility] Work Phone: Sodium [Moles/Vol] 139 mmol/L 135 - 145 mmol/L [facility] Work Phone: Urea nitrogen (BldV) [Mass/Vol] 34 mg/dL High 7 - 20 mg/dL [facility] Work Phone: Test Performed by [address] [address] [facility] Work Phone: [facility] [employer] Work Phone: CBC Auto DifferentialOrdered By: Erika Holden on 10-30-2020 Absolute Baso # 0.0 10*3/uL 0.0 - 0.2 10*3/uL [facility] Work Phone: Absolute Neut # 6.5 10*3/uL 1.8 - 7.0 10*3/uL [facility] Work Phone: 222 Basophils/100 WBC (Bld) 0.1 % 0.0 - 2.0 % [facility] Work Phone: Eosinophils (Bld) [#/Vol] 0.0 10*3/uL 0.0 - 0.5 10*3/uL [facility] Work Phone: 222 Eosinophils/100 WBC (Bld) 0.0 % Low 1.0 - 6.0 % [facility] Work Phone: 222 Granulocytes/100 WBC (Bld) 82.8 % High 40.0 - 80.0 % [facility] Work Phone: 1) 222 Hematocrit (Bld) [Volume fraction] 48.4 % High 35.0 - 47.0 % [facility] [employer] Work Phone: 1) 222 Hemoglobin.gastrointes tinal spec 1 Ql (Stl) 16.2 g/dL High 11.7 - 16.0 g/dL [facility] [employer] Work Phone: 1) 222 Interpretation and review of laboratory results Abnormal [facility] Work Phone: 1) 222 Lymphocytes (Bld) [#/Vol] 0.6 10*3/uL Low 1.0 - 4.3 10*3/uL [facility] [employer] Work Phone: 1) 222 Lymphocytes/100 WBC (Bld) 7.7 % Low 20.0 - 40.0 % [facility] Work Phone: ) 222 MCH (RBC) [Entitic mass] 30.8 pg 26.0 - 34.0 pg [facility] Work Phone: ) 222 MCHC (RBC) [Mass/Vol] 33.6 % 32.0 - 36.0 % [facility] Work Phone: 1) 222 MCV (RBC) [Entitic vol] 91.8 fL 79.0 - 98.0 fL [facility] Work Phone: ) 222 Monocytes (Bld) [#/Vol] 0.7 10*3/uL 0.0 - 0.8 10*3/uL [facility] [employer] Work Phone: 1) 222 Monocytes/100 WBC (Bld) 9.4 % 2.0 - 10.0 % [facility] Work Phone: 1) 222 Platelet distribution width (Bld) [Ratio] 14.1 % 11.5 - 14.5 % [facility] Work Phone: 1) 222 Platelet mean volume (Bld) [Entitic vol] 8.4 fL 7.4 - 10.4 fL [facility] [employer] Work Phone: 1() 222 Platelets (Bld) [#/Vol] 227 10*3/uL 140 - 440 10*3/uL [facility] [employer] Work Phone: 1) 222 RBC (Bld) [#/Vol] 5.27 10*6/uL High 3.80 - 5.2 0 10*6/uL [facility] [employer] Work Phone: WBC (Bld) [#/Vol] 7.9 10*3/uL 3.6 - 10.7 10*3/uL [facility] [employer] Work Phone: Test Performed by [facility], [address] [place] [address] [facility] Work Phone: [facility] [employer] Work Phone: CT Abdomen Pelvis Wo Contras tOrdered By: Ruben Neil on 10-30-2020 Patient Name: LINDA KIM Computed Tomography ACCESSION EXAM DATE/TIME PROCEDURE ORDERING PROVIDER [id number] 10/30/2020 13:[address] Abdomen/Pelvis (No ZOGRAFAKIS, RUBEN G PO, No IV) CPT code 11385 Reason For Exam (CT Abdomen/Pelvis (No PO, No IV)) abdominal pain Report Indication: Abdominal pain. Probable small bowel obstruction. Comparisons: Small bowel series dated 10/29/[address]s of the abdomen and pelvis. Technique: Helically acquired axial CT images were obtained through the abdomen and pelvis without the administration of intravenous and oral contrast. Sagittal and coronal reconstructions were provided. FINDINGS: Please note the enteric contrast is the residual contrast from a small bowel series. Within the lung bases, there are emphysematous changes noted. There is a trace right pleural effusion. There is dependent atelectasis in the bases. The visualized cardiomediastinal structures demonstrate no acute abnormalities. There is an enteric tube seen in the esophagus with the tip in the stomach. Please note evaluation of the abdomen is limited due to the marked dilatation of the small bowel loops as well as the extremely concentrated radiodense enteric contrast. This results in marked streak artifact. The unenhanced liver appears to be grossly normal in size and CT density. There is probable contrast in the gallbladder without stones or definite evidence of acute cholecystitis. The spleen is grossly unremarkable. The pancreas also demonstrates no obvious abnormalities. Perihepatic ascites are present. The stomach cannot be evaluated due to the extremely dense contrast within the stomach. The small bowel loops are again significantly dilated with air-fluid levels and air distended primarily with enteric contrast. The entire small bowel is dilated. This is further supported by the near complete decompression of the colon. A point of stricture is suspected in the right lower quadrant in the general vicinity of the expected terminal ileum. Evaluation of the pelvic contents is also markedly limited due to the contrast in the rectum. The patient appears to have a right lower quadrant ostomy/urinary diversion. Computed Tomography Report Midline vessels appear normal in their course and caliber. No marked adenopathy is seen. No acute osseous abnormality is seen. IMPRESSION: Significantly compromised evaluation due to the marked streak artifact from the concentrated enteric residual contrast Findings are compatible with a small bowel obstruction with the transition point somewhere in the right lower quadrant where a stricture is suspected. This could be the result of adhesive disease. Small amount of ascites. Urinary diversion with a right lower quadrant ostomy. Report Dictated on --- Final --- Dictated: 10/30/2020 2:21 pm Dictating Physician: MD LINDA TOM A Signed Date and Time: 10/30/2020 2:33 pm Signed by: MD LINDA TOM A Transcribed Date and Time: 10/30/2020 2:21 [facility] Work Phone: [facility], [facility] Incoming Radiology Results From [facility] - 10/30/2020 2:34 PM EDT Patient Name: LINDA KIM Computed Tomography ACCESSION EXAM DATE/TIME PROCEDURE ORDERING PROVIDER [id number] 10/30/2020 13:[address] Abdomen/Pelvis (No ZOGRAFAKIS, RUBEN G PO, No IV) CPT code 41977 Reason For Exam (CT Abdomen/Pelvis (No PO, No IV)) abdominal pain Report Indication: Abdominal pain. Probable small bowel obstruction. Comparisons: Small bowel series dated 10/29/[address] numerous [address]s of the abdomen and pelvis. Technique: Helically acquired axial CT images were obtained through the abdomen and pelvis without the administration of intravenous and oral contrast. Sagittal and coronal reconstructions were provided. FINDINGS: Please note the enteric contrast is the residual contrast from a small bowel series. Within the lung bases, there are emphysematous changes noted. There is a trace right pleural effusion. There is dependent atelectasis in the bases. The visualized cardiomediastinal structures demonstrate no acute abnormalities. There is an enteric tube seen in the esophagus with the tip in the stomach. Please note evaluation of the abdomen is limited due to the marked dilatation of the small bowel loops as well as the extremely concentrated radiodense enteric contrast. This results in marked streak artifact. The unenhanced liver appears to be grossly normal in size and CT density. There is probable contrast in the gallbladder without stones or definite evidence of acute cholecystitis. The spleen is grossly unremarkable. The pancreas also demonstrates no obvious abnormalities. Perihepatic ascites are present. The stomach cannot be evaluated due to the extremely dense contrast within the stomach. The small bowel loops are again significantly dilated with air-fluid levels and air distended primarily with enteric contrast. The entire small bowel is dilated. This is further supported by the near complete decompression of the colon. A point of stricture is suspected in the right lower quadrant in the general vicinity of the expected terminal ileum. Evaluation of the pelvic contents is also markedly limited due to the contrast in the rectum. The patient appears to have a right lower quadrant ostomy/urinary diversion. Computed Tomography Report Midline vessels appear normal in their course and caliber. No marked adenopathy is seen. No acute osseous abnormality is seen. IMPRESSION: Significantly compromised evaluation due to the marked streak artifact from the concentrated enteric residual contrast Findings are compatible with a small bowel obstruction with the transition point somewhere in the right lower quadrant where a stricture is suspected. This could be the result of adhesive disease. Small amount of ascites. Urinary diversion with a right lower quadrant ostomy. Report Dictated on --- Final --- Dictated: 10/30/2020 2:21 pm Dictating Physician: MD LINDA TOM A Signed Date and Time: 10/30/2020 2:33 pm Signed by: MD LINDA TOM A Transcribed Date and Time: 10/30/2020 2:21 [facility] Work Phone: [facility] Work Phone: OPERATIVE REPORTOrdered By: Scanning on 10-30-2020 [facility] Work Phone: XR ABDOMEN (KUB) (SINGLE AP VIEW)Ordered By: Erika Holden on 10-30-2020 Patient Name: LINDA KIM Diagnostic Radiology ACCESSION EXAM DATE/TIME PROCEDURE ORDERING PROVIDER [id number] 10/30/2020 19:27 EDT CR Abdomen AP Cat HOLDEN SHELLY D CPT code 21165 Reason For Exam (CR Abdomen AP) NG replacement Report KUB History: Tube placement Comparison: 10/30/2020, 10:24 AM IMPRESSION: AP supine view of the abdomen shows the tip of enteric tube overlies the gastric fundus. There is large amount of residual contrast in multiple distended small bowel loops compatible with partial small bowel obstruction which was also described in the prior exam. The pelvis is not completely included for evaluation. Evaluation of any possible free air in the abdomen is limited without concurrent upright or decubitus views that are not available. There is subcutaneous emphysema along left abdominal wall. There are interstitial densities/infiltrates in the partially visualized lung bases. Report Dictated on --- Final --- Dictated: 10/30/2020 7:39 pm Dictating Physician: MD MELGAR AHMAD Signed Date and Time: 10/30/2020 7:41 pm Signed by: MD MELGAR AHMAD Transcribed Date and Time: 10/30/2020 7:39 [facility] Work Phone: [facility], [facility] Incoming Radiology Results From [facility] - 10/30/2020 7:42 PM EDT Patient Name: LINDA KIM Diagnostic Radiology ACCESSION EXAM DATE/TIME PROCEDURE ORDERING PROVIDER [id number] 10/30/2020 19:27 EDT CR Abdomen ARSENIO HOLDEN M.D., SHELLY D CPT code 55006 Reason For Exam (CR Abdomen AP) NG replacement Report KUB History: Tube placement Comparison: 10/30/2020, 10:24 AM IMPRESSION: AP supine view of the abdomen shows the tip of enteric tube overlies the gastric fundus. There is large amount of residual contrast in multiple distended small bowel loops compatible with partial small bowel obstruction which was also described in the prior exam. The pelvis is not completely included for evaluation. Evaluation of any possible free air in the abdomen is limited without concurrent upright or decubitus views that are not available. There is subcutaneous emphysema along left abdominal wall. There are interstitial densities/infiltrates in the partially visualized lung bases. Report Dictated on --- Final --- Dictated: 10/30/2020 7:39 pm Dictating Physician: MD MELGAR AHMAD Signed Date and Time: 10/30/2020 7:41 pm Signed by: MD MELGAR AHMAD Transcribed Date and Time: 10/30/2020 7:39 [facility] Work Phone: [facility] Work Phone: Patient Name: LINDA KIM Diagnostic Radiology ACCESSION EXAM DATE/TIME PROCEDURE ORDERING PROVIDER [id number] 10/30/2020 10:29 EDT CR Abdomen AP Cat HOLDEN, ERIKA Angel CPT code 01777 Reason For Exam (CR Abdomen AP) SBO Report ABDOMEN: CLINICAL INDICATION: Pain and distention. TECHNIQUE: Supine abdomen and pelvis COMPARISON: CT from the same date and radiograph from two days ago FINDINGS: Oral contrast is present within the stomach and throughout dilated small bowel loops. There is no apparent oral contrast within the large bowel. A nasogastric tube is noted. The osseous structures demonstrate no abnormality. IMPRESSION: Contrast throughout dilated small bowel loops likely distal small bowel obstruction . Report Dictated on --- Final --- Dictated: 10/30/2020 3:21 pm Dictating Physician: MD WEINSTEIN JEFFREY Signed Date and Time: 10/30/2020 3:23 pm Signed by: MD WEINSTEIN JEFFREY Transcribed Date and Time: 10/30/2020 3:21 [facility] Work Phone: [facility], [facility] Incoming Radiology Results From [facility] - 10/30/2020 3:24 PM EDT Patient Name: LINDA KIM Diagnostic Radiology ACCESSION EXAM DATE/TIME PROCEDURE ORDERING PROVIDER [id number] 10/30/2020 10:29 EDT CR Abdomen AP Cat HOLDEN, ERIKA Angel CPT code 33179 Reason For Exam (CR Abdomen AP) SBO Report ABDOMEN: CLINICAL INDICATION: Pain and distention. TECHNIQUE: Supine abdomen and pelvis COMPARISON: CT from the same date and radiograph from two days ago FINDINGS: Oral contrast is present within the stomach and throughout dilated small bowel loops. There is no apparent oral contrast within the large bowel. A nasogastric tube is noted. The osseous structures demonstrate no abnormality. IMPRESSION: Contrast throughout dilated small bowel loops likely distal small bowel obstruction . Report Dictated on --- Final --- Dictated: 10/30/2020 3:21 pm Dictating Physician: MD WEINSTEIN JEFFREY Signed Date and Time: 10/30/2020 3:23 pm Signed by: MD WEINSTEIN JEFFREY Transcribed Date and Time: 10/30/2020 3:21 [facility] Work Phone: [facility] Work Phone: Basic Metabolic PanelOrdered By: Erika Holden on 10-29-2020 Anion gap [Moles/Vol] 7 mmol/L 3 - 13 mmol/L [facility] Work Phone: Calcium [Mass/Vol] 9.0 mg/dL 8.4 - 10. 4 mg/dL [facility] Work Phone: [phone] Chloride [Moles/Vol] 107 mmol/L 98 - 10 7 mmol/L [facility] Work Phone: CO2 [Moles/Vol] 22 mmol/L 22 - 30 mmol/L [facility] Work Phone: Creatinine [Mass/Vol] 0.84 mg/dL 0.52 - 1.25 mg/dL [facility] Work Phone: EGFR IF NonAfrican Luxembourger 72.2 mL/min >60 [facility] Work Phone: Comment on above: KDIGO guidelines pro vide the following GFR categories: Stage GFR(ml/min/1.73 m2) Terms G1 >=90 Normal or high G2 60-89 Mildly decreased* G3a 45-59 Mildly to moderately decreased G3b 30-44 Moderately to severely decreased G4 15-29 Severely decreased G5 <15 Kidney failure *Relative to young adult level. In the absence of evidence of kidney damage, neither GFR category G1 nor G2 fulfill the criteria for CKD. The CKD-EPI equation is validated in individuals 18 years of age and older. Currently the best equation for estimating glomerular filtration rate (GFR) from serum creatinine in children is the Bedside Celis equation. It is less accurate in patients with extremes of muscle mass, restriction of dietary protein, ingestion of creatine, extra-renal metabolism of creatinine, or treatment with medications that affect renal tubular creatinine secretion. GFR/1.73 sq M.predicted among blacks MDRD (S/P/Bld) [Vol rate/Area] 83.7 mL/min/{1.73_m2} >60 [facility] Work Phone: Glucose [Mass/Vol] 112 mg/dL High 70 - 100 mg/dL [facility] Work Phone: Interpretation and review of laboratory results Abnormal [facility] Work Phone: Potassium [Moles/Vol] 4.4 mmol/L 3.5 - 5.1 mmol/L [facility] Work Phone: Sodium [Moles/Vol] 136 mmol/L 135 - 145 mmol/L [facility] Work Phone: Urea nitrogen (BldV) [Mass/Vol] 28 mg/dL High 7 - 20 mg/dL [facility] Work Phone: Test Performed by [facility], [address] [place] [address] [facility] Work Phone: [facility] Work Phone: CBC Auto DifferentialOrdered By: Erika Holden on 10-29-2020 Absolute Baso # 0.0 10*3/uL 0.0 - 0.2 10*3/uL [facility] Work Phone: Absolute Neut # 8.7 10*3/uL High 1.8 - 7.0 10*3/uL [facility] Work Phone: 222 Basophils/100 WBC (Bld) 0.4 % 0.0 - 2.0 % [facility] Work Phone: 222 Eosinophils (Bld) [#/Vol] 0.0 10*3/uL 0.0 - 0.5 10*3/uL [facility] Work Phone: 1() 222 Eosinophils/100 WBC (Bld) 0.3 % Low 1.0 - 6.0 % [facility] Work Phone: 1() 222 Granulocytes/100 WBC (Bld) 81.3 % High 40.0 - 80.0 % [facility] Work Phone: 222 Hematocrit (Bld) [Volume fraction] 45.8 % 35.0 - 47.0 % [facility] Work Phone: [phone] Hemoglobin.gastrointes tinal spec 1 Ql (Stl) 15.7 g/dL 11.7 - 16.0 g/dL [facility] Work Phone: ) 222 Interpretation and review of laboratory results Abnormal [facility] Work Phone: 222 Lymphocytes (Bld) [#/Vol] 1.2 10*3/uL 1.0 - 4.3 10*3/uL [facility] Work Phone: 222 Lymphocytes/100 WBC (Bld) 11.3 % Low 20.0 - 40.0 % [facility] Work Phone: 222 MCH (RBC) [Entitic mass] 30.9 pg 26.0 - 34.0 pg [facility] Work Phone: 222 MCHC (RBC) [Mass/Vol] 34.3 % 32.0 - 36.0 % [facility] Work Phone: 222 MCV (RBC) [Entitic vol] 90.2 fL 79.0 - 98.0 fL [facility] Work Phone: 222 Monocytes (Bld) [#/Vol] 0.7 10*3/uL 0.0 - 0.8 10*3/uL [facility] Work Phone: ) 222 Monocytes/100 WBC (Bld) 6.7 % 2.0 - 10.0 % [facility] Work Phone: [phone] Platelet distribution width (Bld) [Ratio] 14.0 % 11.5 - 14.5 % [facility] Work Phone: 222 Platelet mean volume (Bld) [Entitic vol] 8.1 fL 7.4 - 10.4 fL [facility] Work Phone: [phone] Platelets (Bld) [#/Vol] 211 10*3/uL 140 - 440 10*3/uL [facility] Work Phone: [phone] RBC (Bld) [#/Vol] 5.08 10*6/uL 3.80 - 5.2 0 10*6/uL [facility] Work Phone: [phone] WBC (Bld) [#/Vol] 10.7 10*3/uL 3.6 - 10.7 10*3/uL [facility] Work Phone: Test Performed by [facility] [employer] [address] [address] [facility] Work Phone: [phone] [facility] Work Phone: [phone] EKG 12 LeadOrdered By: Filemon Van on 10-29-2020 [facility] 3sun Test Date: 2020-10-28 Pat Name: LINDA KIM Department: 1A5 Room: [facility] Gender: F Ammonia Box Tender: DAVID : 1955 Requested By: AURORA VAN Order Number: [id number] Reading MD: Eusebio Harrison Measurements Intervals [place] Rate: 90 P: 76 [place]: 138 QRS: -13 QRSD: 87 T: 75 QT: 360 QTc: 441 Interpretive Statements Sinus rhythm Left atrial enlargement Probable left ventricular hypertrophy Electronically Signed On 10-29-2020 12:51:45 EDT by Eusebio Harrison [facility] Work Phone: Jaitn, [facility] Incoming Cardiology Results From [facility] - 10/29/2020 12:52 PM [facility]: 2020-10[facility]28 Pat Name: LINDA KIM Department: 1A5 Room: [facility] Gender: F Ammonia Box Tender: DAVID : 1955 Requested By: AURORA VAN Order Number: [id number] Reading : Eusebio Harrison Measurements Intervals [place] Rate: 90 P: 76 [place]: 138 QRS: -13 QRSD: 87 T: 75 QT: 360 QTc: 441 Interpretive Statements Sinus rhythm Left atrial enlargement Probable left ventricular hypertrophy Electronically Signed On 10-29-2020 12:51:45 EDT by Eusebio SUTHERLAND Work Phone: [facility] Work Phone: FL SMALL BOWELOrdered By: Madeline Ro on 10-29-2020 [id number] ACCESSION EXAM DATE/TIME PROCEDURE ORDERING PROVIDER [id number] 10/29/2020 21:53 EDT RF Small Bowel w/ Serial [id number], JACOBO Films CPT code 06991 Reason For Exam (RF Small Bowel w/ Serial Films) patient with bowel obsruction Report SMALL BOWEL SERIES: CLINICAL INDICATION: Small bowel obstruction. TECHNIQUE: Small bowel series was performed following administration of Gastrografin contrast through the indwelling enteric tube. 13 radiographs were obtained. No fluoroscopy was used. COMPARISON: 11/09/2019 FINDINGS: Supine rn radiation radiograph of the abdomen demonstrates multiple dilated small bowel loops. An enteric terminates overlying the gastric body. Ostomy device overlies the right lower quadrant. No radiopaque urinary calculi. The osseous structures appear unremarkable. Unremarkable appearance of the stomach without significant gastric distention, the filling defect or rugal thickening. Small bowel distention is noted, with delayed passage of contrast through the small bowel, and no evidence of contrast within the large bowel, even after an 11 hour delayed image. IMPRESSION: Dilated small bowel loops with delayed transit of contrast through the small bowel. No contrast is seen in the colon even after 11 hours. Findings are consistent with a small bowel obstruction, though note that no transition point is identified. Recommend repeat radiographic imaging, and consider follow-up CT. Report Dictated on --- Final --- Dictated: 10/29/2020 9:48 pm Dictating Physician: MD MILLARD NICHOLAS Signed Date and Time: 10/29/2020 9:54 pm Signed by: MD MILLARD NICHOLAS Transcribed Date and Time: 10/29/2020 9:48 [facility] Work Phone: [facility], [facility] Incoming Radiology Results From [facility] - 10/29/2020 9:56 PM EDT Patient Name: LINDA KIM Fluoroscopy ACCESSION EXAM DATE/TIME PROCEDURE ORDERING PROVIDER [id number] 10/29/2020 21:53 EDT RF Small Bowel w/ Serial [id number], JACOBO Films CPT code 03788 Reason For Exam (RF Small Bowel w/ Serial Films) patient with bowel obsruction Report SMALL BOWEL SERIES: CLINICAL INDICATION: Small bowel obstruction. TECHNIQUE: Small bowel series was performed following administration of Gastrografin contrast through the indwelling enteric tube. 13 radiographs were obtained. No fluoroscopy was used. COMPARISON: 11/09/2019 FINDINGS: Supine rn radiation radiograph of the abdomen demonstrates multiple dilated small bowel loops. An enteric terminates overlying the gastric body. Ostomy device overlies the right lower quadrant. No radiopaque urinary calculi. The osseous structures appear unremarkable. Unremarkable appearance of the stomach without significant gastric distention, the filling defect or rugal thickening. Small bowel distention is noted, with delayed passage of contrast through the small bowel, and no evidence of contrast within the large bowel, even after an 11 hour delayed image. IMPRESSION: Dilated small bowel loops with delayed transit of contrast through the small bowel. No contrast is seen in the colon even after 11 hours. Findings are consistent with a small bowel obstruction, though note that no transition point is identified. Recommend repeat radiographic imaging, and consider follow-up CT. Report Dictated on --- Final --- Dictated: 10/29/2020 9:48 pm Dictating Physician: MD MILLARD NICHOLAS Signed Date and Time: 10/29/2020 9:54 pm Signed by: MD MILLARD NICHOLAS Transcribed Date and Time: 10/29/2020 9:48 [facility] Work Phone: [facility] Work Phone: Basic Metabolic PanelOrdered By: Erika Holden on 10-28-2020 Anion gap [Moles/Vol] 12 mmol/L 3 - 13 mmol/L [facility] Work Phone: Calcium [Mass/Vol] 9.9 mg/dL 8.4 - 10. 4 mg/dL [facility] Work Phone: [phone] Chloride [Moles/Vol] 108 mmol/L High 98 - 10 7 mmol/L [facility] Work Phone: [phone] CO2 [Moles/Vol] 18 mmol/L Low 22 - 30 mmol/L [facility] Work Phone: [phone] Creatinine [Mass/Vol] 0.89 mg/dL 0.52 - 1.25 mg/dL [facility] Work Phone: [phone] EGFR IF NonAfrican Luxembourger 67.3 mL/min >60 [facility] Work Phone: [phone] Comment on above: KDIGO guidelines pro vide the following GFR categories: Stage GFR(ml/min/1.73 m2) Terms G1 >=90 Normal or high G2 60-89 Mildly decreased* G3a 45-59 Mildly to moderately decreased G3b 30-44 Moderately to severely decreased G4 15-29 Severely decreased G5 <15 Kidney failure *Relative to young adult level. In the absence of evidence of kidney damage, neither GFR category G1 nor G2 fulfill the criteria for CKD. The CKD-EPI equation is validated in individuals 18 years of age and older. Currently the best equation for estimating glomerular filtration rate (GFR) from serum creatinine in children is the Bedside Celis equation. It is less accurate in patients with extremes of muscle mass, restriction of dietary protein, ingestion of creatine, extra-renal metabolism of creatinine, or treatment with medications that affect renal tubular creatinine secretion. GFR/1.73 sq M.predicted among blacks MDRD (S/P/Bld) [Vol rate/Area] 78.0 mL/min/{1.73_m2} >60 [facility] Work Phone: [phone] Glucose [Mass/Vol] 138 mg/dL High 70 - 100 mg/dL [facility] Work Phone: [phone] Interpretation and review of laboratory results Abnormal [facility] Work Phone: [phone] Potassium [Moles/Vol] 4.3 mmol/L 3.5 - 5.1 mmol/L [facility] Work Phone: [phone] Sodium [Moles/Vol] 139 mmol/L 135 - 145 mmol/L [facility] Work Phone: [phone] Urea nitrogen (BldV) [Mass/Vol] 22 mg/dL High 7 - 20 mg/dL [facility] Work Phone: Test Performed by [facility], [address] [place] [address] [facility] Work Phone: [facility] Work Phone: CBC Auto DifferentialOrdered By: Erika Holden on 10-28-2020 Absolute Baso # 0.0 10*3/uL 0.0 - 0.2 10*3/uL [facility] Work Phone: 1) Absolute Neut # 8.3 10*3/uL High 1.8 - 7.0 10*3/uL [facility] Work Phone: Basophils/100 WBC (Bld) 0.3 % 0.0 - 2.0 % [facility] Work Phone: Eosinophils (Bld) [#/Vol] 0.0 10*3/uL 0.0 - 0.5 10*3/uL [facility] Work Phone: 222 Eosinophils/100 WBC (Bld) 0.2 % Low 1.0 - 6.0 % [facility] Work Phone: 222 Granulocytes/100 WBC (Bld) 82.5 % High 40.0 - 80.0 % [facility] Work Phone: Hematocrit (Bld) [Volume fraction] 47.9 % High 35.0 - 47.0 % [facility] Work Phone: 222 Hemoglobin.gastrointes tinal spec 1 Ql (Stl) 16.5 g/dL High 11.7 - 16.0 g/dL [facility] Work Phone: ) 222 Interpretation and review of laboratory results Abnormal [facility] Work Phone: ) 222 Lymphocytes (Bld) [#/Vol] 1.1 10*3/uL 1.0 - 4.3 10*3/uL [facility] Work Phone: ) 222 Lymphocytes/100 WBC (Bld) 11.0 % Low 20.0 - 40.0 % [facility] Work Phone: ) 222 MCH (RBC) [Entitic mass] 31.1 pg 26.0 - 34.0 pg [facility] Work Phone: 1() 222 MCHC (RBC) [Mass/Vol] 34.4 % 32.0 - 36.0 % [facility] Work Phone: 1() 222 MCV (RBC) [Entitic vol] 90.3 fL 79.0 - 98.0 fL [facility] Work Phone: 1() 222 Monocytes (Bld) [#/Vol] 0.6 10*3/uL 0.0 - 0.8 10*3/uL [facility] Work Phone: 1() 222 Monocytes/100 WBC (Bld) 6.0 % 2.0 - 10.0 % [facility] Work Phone: 1() 222 Platelet distribution width (Bld) [Ratio] 14.0 % 11.5 - 14.5 % [facility] Work Phone: 1() 222 Platelet mean volume (Bld) [Entitic vol] 8.1 fL 7.4 - 10.4 fL [facility] Work Phone: 1() 222 Platelets (Bld) [#/Vol] 222 10*3/uL 140 - 440 10*3/uL [facility] Work Phone: 1() 222 RBC (Bld) [#/Vol] 5.30 10*6/uL High 3.80 - 5.2 0 10*6/uL [facility] Work Phone: 1() 222 WBC (Bld) [#/Vol] 10.1 10*3/uL 3.6 - 10.7 10*3/uL [facility] Work Phone: 1() 222 Test Performed by [facility], [facility] [email or web address] [address] [facility] Work Phone: [phone] [facility] Work Phone: 1() 222 Lactic Acid, PlasmaOrdered B y: Inderpartap Phangureh on 10-28-2020 Lactate [Moles/Vol] 1.2 mmol/L 0.7 - 2. 0 mmol/L [facility] Work Phone: [phone] Test Performed by [facility], [facility] [email or web address] [address] [facility] Work Phone: [facility] Work Phone: XR ABDOMEN (KUB) (SINGLE AP VIEW)Ordered By: Jacobo Ro on 10-28-2020 Patient Name: LINDA FAGAN Diagnostic Radiology ACCESSION EXAM DATE/TIME PROCEDURE ORDERING PROVIDER [id number] 10/28/2020 17:17 EDT CR Abdomen AP [id number] IBIS, JACOBO CPT code 97807 Reason For Exam (CR Abdomen AP) NG tube advancement Report CLINICAL INFORMATION: NG tube placement. Abdominal pain and distention. KUB is provided at 1645 hours. The examination is compared to a previous study of the same dated 0820 hours. FINDINGS: An NG tube has been advanced into the body of the stomach. There is mild dilatation of visualized small bowel loops. The lung bases are clear. IMPRESSION: 1. NG tube has been advanced into the body of the stomach. Report Dictated on --- Final --- Dictated: 10/28/2020 7:08 pm Dictating Physician: MD CHRISTINE JEFFREY Signed Date and Time: 10/28/2020 7:08 pm Signed by: MD CHRISTINE JEFFREY Transcribed Date and Time: 10/28/2020 7:08 [facility] Work Phone: [place], [facility] Incoming Radiology Results From [facility] - 10/28/2020 7:10 PM EDT Patient Name: LINDA KIM Diagnostic Radiology ACCESSION EXAM DATE/TIME PROCEDURE ORDERING PROVIDER [id number] 10/28/2020 17:17 EDT CR Abdomen AP [id number] -NEALOctaviano, JACOBO CPT code 65518 Reason For Exam (CR Abdomen AP) NG tube advancement Report CLINICAL INFORMATION: NG tube placement. Abdominal pain and distention. KUB is provided at 1645 hours. The examination is compared to a previous study of the same dated 0820 hours. FINDINGS: An NG tube has been advanced into the body of the stomach. There is mild dilatation of visualized small bowel loops. The lung bases are clear. IMPRESSION: 1. NG tube has been advanced into the body of the stomach. Report Dictated on --- Final --- Dictated: 10/28/2020 7:08 pm Dictating Physician: MD CHRISTINE JEFFREY Signed Date and Time: 10/28/2020 7:08 pm Signed by: MD CHRISTINE JEFFREY Transcribed Date and Time: 10/28/2020 7:08 [facility] Work Phone: [facility] Work Phone: XR ABDOMEN (KUB) (SINGLE AP VIEW)Ordered By: Aurora Van on 10-28-2020 Patient Name: LINDA KIM Diagnostic Radiology ACCESSION EXAM DATE/TIME PROCEDURE ORDERING PROVIDER [id number] 10/28/2020 08:29 EDT CR Abdomen AP DO VAN INDERPARTAP SINGH CPT code 14624 Reason For Exam (CR Abdomen AP) NG tube placement Report Indication: NG tube placement. Supine view of the abdomen and pelvis timed 820 was compared to the study dated 11/10/2019. The study was also correlated with the CT scans of the abdomen and pelvis dated 11/17/2019. There is been placement of a nasogastric tube, the tip is beneath the diaphragm projects over the left upper quadrant in the expected location of the gastric fundus. There is a right lower quadrant ostomy. Several gas distended small bowel loops are visualized. No significant dilated colon is visualized. The findings are worrisome for small bowel obstruction. Evaluation for free air is limited without upright or decubitus view. Several small calcifications are again identified in the pancreatic head region compatible with chronic pancreatitis. Follow-up is recommended. Report Dictated on --- Final --- Dictated: 10/28/2020 8:27 am Dictating Physician: DO PROCTOR ANTHONY Signed Date and Time: 10/28/2020 8:31 am Signed by: DO PROCTOR ANTHONY Transcribed Date and Time: 10/28/2020 8:27 [facility] Work Phone: [facility], [facility] Incoming Radiology Results From [facility] - 10/28/2020 8:32 AM EDT [id number] ACCESSION EXAM DATE/TIME PROCEDURE ORDERING PROVIDER [id number] 10/28/2020 08:29 EDT CR Abdomen AP DO VAN INDERPARTAP SINGH CPT code 02770 Reason For Exam (CR Abdomen AP) NG tube placement Report Indication: NG tube placement. Supine view of the abdomen and pelvis timed 820 was compared to the study dated 11/10/2019. The study was also correlated with the CT scans of the abdomen and pelvis dated 11/17/2019. There is been placement of a nasogastric tube, the tip is beneath the diaphragm projects over the left upper quadrant in the expected location of the gastric fundus. There is a right lower quadrant ostomy. Several gas distended small bowel loops are visualized. No significant dilated colon is visualized. The findings are worrisome for small bowel obstruction. Evaluation for free air is limited without upright or decubitus view. Several small calcifications are again identified in the pancreatic head region compatible with chronic pancreatitis. Follow-up is recommended. Report Dictated on --- Final --- Dictated: 10/28/2020 8:27 am Dictating Physician: DO PROCTOR ANTHONY Signed Date and Time: 10/28/2020 8:31 am Signed by: DO PROCTOR ANTHONY Transcribed Date and Time: 10/28/2020 8:27 [facility] Phone[facility] Work Phone: Basic Metabolic Panelon 01-0 Anion gap [Moles/Vol] 8 mmol/L [facility] [place] Calcium [Mass/Vol] 9.9 mg/dL 8.4 - 10. 4 mg/dL [place] Chloride [Moles/Vol] 104 mmol/L 98 - 10 7 mmol/L [place] CO2 [Moles/Vol] 25 mmol/L 22 - 30 mmol/L [place] Creatinine [Mass/Vol] 0.66 mg/dL 0.52 - 1.25 mg/dL [place] EGFR IF NonAfrican [place] >90.0 >60 mL/min [place] Comment on above: KDIGO guidelines pro vide the following GFR categories: Stage GFR(ml/min/1.73 m2) Terms G1 >=90 Normal or high G2 60-89 Mildly decreased* G3a 45-59 Mildly to moderately decreased G3b 30-44 Moderately to severely decreased G4 15-29 Severely decreased G5 <15 Kidney failure *Relative to young adult level. In the absence of evidence of kidney damage, neither GFR category G1 nor G2 fulfill the criteria for CKD. The CKD-EPI equation is validated in individuals 18 years of age and older. Currently the best equation for estimating glomerular filtration rate (GFR) from serum creatinine in children is the Bedside Celis equation. It is less accurate in patients with extremes of muscle mass, restriction of dietary protein, ingestion of creatine, extra-renal metabolism of creatinine, or treatment with medications that affect renal tubular creatinine secretion. GFR/1.73 sq M predicted among blacks MDRD (S/P/Bld) [Vol rate/Area] mL/min/{1.73_m2} >60 mL/min [place] Glucose [Mass/Vol] 84 mg/dL 70 - 100 mg/dL [place] Potassium [Moles/Vol] 4.2 mmol/L 3.5 - 5.1 mmol/L [place] Sodium [Moles/Vol] 138 mmol/L 135 - 145 mmol/L [place] Urea nitrogen [Mass/Vol] 17 mg/dL 7 - 20 mg/dL [place] Test Performed by [facility], [address] [place] [address] [place] CBCon 05-25-2020 Erythrocyte distribution width (RBC) [Ratio] 15.0 % High 11.5 - 14.5 % [place] Hematocrit (Bld) [Volume fraction] 45.1 % 35 - 47 % [place] Hemoglobin (Bld) [Mass/Vol] 15.5 g/dL 11.7 - 16 g/dL [place] Interpretation and review of laboratory results Abnormal [place] MCH (RBC) [Entitic mass] 30.8 pg 26 - 34 pg [place] MCHC (RBC) [Mass/Vol] 34.4 % 32 - 36 % [place] MCV (RBC) [Entitic vol] 89.6 fL 79 - 98 fL [place] Platelet mean volume (Bld) [Entitic vol] 7.6 fL 7.4 - 10.4 fL [place] Platelets (Bld) [#/Vol] 259 10*3/uL 140 - 440 10*3/uL [place] RBC (Bld) [#/Vol] 5.03 10*6/uL 3.8 - 5.2 10*6/uL [place] WBC (Bld) [#/Vol] 6.4 10*3/uL 3.6 - 10.7 10*3/uL [place] Test Performed by [address] [address] [place] Protime-INRon 05-25-2020 INR Coag (PPP) [Relative time] 0.9 {INR} [place] Comment on above: Recommended Anticoag ulant Therapy: SEE BELOW ----- INR of 2.0 - 3.0 : - Prophylaxis of Venous Thrombosis (high-risk surgery) - Treatment of Venous Thrombosis - Treatment of Pulmonary Embolism (Includes tissue heart valves, Acute Myocardial Infarction to prevent systemic embolism, Valvular Heart Disease, and Atrial Fibrillation) ----- INR of 2.5 - 3.5 : - Mechanical Prosthetic Valves (high risk) - If oral anticoagulant therapy is used to prevent Myocardial Infarction PT Coag (PPP) [Time] 10.3 s 9 - 12 s [place] Comment on above: . Test Performed by [address] [address] [place] CBC Auto Differentialon 07-0 Absolute Baso # 0.0 10*3/uL 0 - 0.2 10*3/uL [place] Absolute Neut # 5.7 10*3/uL 1.8 - 7 10*3/uL [place] Basophils/100 WBC (Bld) 0.3 % 0 - 2 % [place] Eosinophils (Bld) [#/Vol] 0.2 10*3/uL 0 - 0.5 10*3/uL [place] Eosinophils/100 WBC (Bld) 2.4 % 1 - 6 % [place] Erythrocyte distribution width (RBC) [Ratio] 16.0 % High 11.5 - 14.5 % [place] Granulocytes/100 WBC (Bld) 79.0 % 40 - 80 % [place] Hematocrit (Bld) [Volume fraction] 29.3 % Low 35 - 47 % [place] Hemoglobin (Bld) [Mass/Vol] 9.8 g/dL Low 11.7 - 16 g/dL [place] Interpretation and review of laboratory results Abnormal [place] Lymphocytes (Bld) [#/Vol] 0.8 10*3/uL Low 1 - 4.3 10*3/uL [place] Lymphocytes/100 WBC (Bld) 11.0 % Low 20 - 40 % [place] MCH (RBC) [Entitic mass] 30.8 pg 26 - 34 pg [place] MCHC (RBC) [Mass/Vol] 33.6 % 32 - 36 % [place] MCV (RBC) [Entitic vol] 91.8 fL 79 - 98 fL [place] Monocytes (Bld) [#/Vol] 0.5 10*3/uL 0 - 0.8 10*3/uL [place] Monocytes/100 WBC (Bld) 7.3 % 2 - 10 % [place] Platelet mean volume (Bld) [Entitic vol] 7.2 fL Low 7.4 - 10.4 fL [place] Platelets (Bld) [#/Vol] 377 10*3/uL 140 - 440 10*3/uL [place] RBC (Bld) [#/Vol] 3.19 10*6/uL Low 3.8 - 5.2 10*6/uL [place] WBC (Bld) [#/Vol] 7.2 10*3/uL 3.6 - 10.7 10*3/uL [place] Test Performed by [facility], [address] [place] [address] [place] Comprehensive Metabolic Pane jamari 11-20-2019 Albumin [Mass/Vol] 2.4 g/dL Low 3.5 - 5 g/dL [place] ALP [Catalytic activity/Vol] 104 U/L 38 - 126 U/L [place] ALT [Catalytic activity/Vol] 27 U/L 0 - 34 U/L [place] Comment on above: The ALT test is perf ormed by an updated assay method. Please note that the reference intervals have been changed and are now sex specific. Anion gap [Moles/Vol] 5 mmol/L [place] AST [Catalytic activity/Vol] 32 U/L 15 - 46 U/L [place] Bilirubin Ql (U) 0.6 mg/dL 0.2 - 1.3 mg/dL [place] Calcium [Mass/Vol] 7.8 mg/dL Low 8.4 - 10. 4 mg/dL [place] Chloride [Moles/Vol] 104 mmol/L 98 - 10 7 mmol/L [place] CO2 [Moles/Vol] 24 mmol/L 22 - 30 mmol/L [place] Creatinine [Mass/Vol] 0.31 mg/dL Low 0.52 - 1.25 mg/dL [place] EGFR IF NonAfrican [place] >90.0 >60 mL/min [place] Comment on above: KDIGO guidelines pro vide the following GFR categories: Stage GFR(ml/min/1.73 m2) Terms G1 >=90 Normal or high G2 60-89 Mildly decreased* G3a 45-59 Mildly to moderately decreased G3b 30-44 Moderately to severely decreased G4 15-29 Severely decreased G5 <15 Kidney failure *Relative to young adult level. In the absence of evidence of kidney damage, neither GFR category G1 nor G2 fulfill the criteria for CKD. The CKD-EPI equation is validated in individuals 18 years of age and older. Currently the best equation for estimating glomerular filtration rate (GFR) from serum creatinine in children is the Bedside Celis equation. It is less accurate in patients with extremes of muscle mass, restriction of dietary protein, ingestion of creatine, extra-renal metabolism of creatinine, or treatment with medications that affect renal tubular creatinine secretion. GFR/1.73 sq M predicted among blacks MDRD (S/P/Bld) [Vol rate/Area] mL/min/{1.73_m2} >60 mL/min [place] Glucose [Mass/Vol] 95 mg/dL 70 - 100 mg/dL [place] Interpretation and review of laboratory results Abnormal [place] Potassium [Moles/Vol] 3.7 mmol/L 3.5 - 5.1 mmol/L [place] Protein [Mass/Vol] 4.8 g/dL Low 6.3 - 8.2 g/dL [place] Sodium [Moles/Vol] 133 mmol/L Low 135 - 145 mmol/L [place] Urea nitrogen [Mass/Vol] 7 mg/dL 7 - 20 mg/dL [place] Magnesiumon 11-20-2019 Magnesium [Mass/Vol] 1.9 mg/dL 1.6 - 2 .3 mg/dL [place] Otheron 11-20-2019 Test Performed by [facility], [address] [place] [address] [place] Phosphoruson 11-20-2019 Phosphate [Mass/Vol] 2.5 mg/dL 2.5 - 4 .5 mg/dL [place] Procalcitoninon 11-20-2019 Procalcitonin <0.10 <0.10 ng/mL [place] Sodium [Moles/Vol] See Below [place], [place] Comment on above: PCT <0.50 = Low risk of severe sepsis and/or septic shock. PCT >2.00 = High risk of severe sepsis and/or septic shock. Test Performed by [facility], [address] [place] [address] [place] Basic Metabolic Panelon 10-22 Anion gap [Moles/Vol] 6 mmol/L [place] Calcium [Mass/Vol] 8.0 mg/dL Low 8.4 - 10. 4 mg/dL [place] Chloride [Moles/Vol] 106 mmol/L 98 - 10 7 mmol/L [place] CO2 [Moles/Vol] 20 mmol/L Low 22 - 30 mmol/L [place] Creatinine [Mass/Vol] 0.4 mg/dL Low 0.52 - 1.25 mg/dL [place] EGFR IF NonAfrican [place] >90.0 >60 mL/min [place] Comment on above: KDIGO guidelines pro vide the following GFR categories: Stage GFR(ml/min/1.73 m2) Terms G1 >=90 Normal or high G2 60-89 Mildly decreased* G3a 45-59 Mildly to moderately decreased G3b 30-44 Moderately to severely decreased G4 15-29 Severely decreased G5 <15 Kidney failure *Relative to young adult level. In the absence of evidence of kidney damage, neither GFR category G1 nor G2 fulfill the criteria for CKD. The CKD-EPI equation is validated in individuals 18 years of age and older. Currently the best equation for estimating glomerular filtration rate (GFR) from serum creatinine in children is the Bedside Celis equation. It is less accurate in patients with extremes of muscle mass, restriction of dietary protein, ingestion of creatine, extra-renal metabolism of creatinine, or treatment with medications that affect renal tubular creatinine secretion. GFR/1.73 sq M predicted among blacks MDRD (S/P/Bld) [Vol rate/Area] mL/min/{1.73_m2} >60 mL/min [place] Glucose [Mass/Vol] 96 mg/dL 70 - 100 mg/dL [place] Interpretation and review of laboratory results Abnormal [place] Potassium [Moles/Vol] 3.1 mmol/L Low 3.5 - 5.1 mmol/L [place] Sodium [Moles/Vol] 132 mmol/L Low 135 - 145 mmol/L [place] Urea nitrogen [Mass/Vol] 12 mg/dL 7 - 20 mg/dL [place] CBCon 11-19-2019 Erythrocyte distribution width (RBC) [Ratio] 15.4 % High 11.5 - 14.5 % [place] Hematocrit (Bld) [Volume fraction] 27.0 % Low 35 - 47 % [place] Hemoglobin (Bld) [Mass/Vol] 9.0 g/dL Low 11.7 - 16 g/dL [place] Interpretation and review of laboratory results Abnormal [place] MCH (RBC) [Entitic mass] 31.1 pg 26 - 34 pg [place] MCHC (RBC) [Mass/Vol] 33.4 % 32 - 36 % [place] MCV (RBC) [Entitic vol] 93.1 fL 79 - 98 fL [place] Platelet mean volume (Bld) [Entitic vol] 7.5 fL 7.4 - 10.4 fL [place] Platelets (Bld) [#/Vol] 381 10*3/uL 140 - 440 10*3/uL [place] RBC (Bld) [#/Vol] 2.90 10*6/uL Low 3.8 - 5.2 10*6/uL [place] WBC (Bld) [#/Vol] 9.0 10*3/uL 3.6 - 10.7 10*3/uL [place] Test Performed by [facility], [address] [place] [address] [place] Magnesiumon 11-19-2019 Magnesium [Mass/Vol] 1.6 mg/dL 1.6 - 2 .3 mg/dL [place] Otheron 11-19-2019 Test Performed by [facility], [address] [place] [address] [place] PREPARE RBC (CROSSMATCH), 1 Unitson 11-19-2019 [place] Phosphoruson 11-19-2019 Phosphate [Mass/Vol] 2.7 mg/dL 2.5 - 4 .5 mg/dL [place] Basic Metabolic Panelon 10-21 Anion gap [Moles/Vol] 5 mmol/L [place] Calcium [Mass/Vol] 8.4 mg/dL 8.4 - 10. 4 mg/dL [place] Chloride [Moles/Vol] 114 mmol/L High 98 - 10 7 mmol/L [place] CO2 [Moles/Vol] 17 mmol/L Low 22 - 30 mmol/L [place] Creatinine [Mass/Vol] 0.48 mg/dL Low 0.52 - 1.25 mg/dL [place] EGFR IF NonAfrican [place] >90.0 >60 mL/min [place] Comment on above: KDIGO guidelines pro vide the following GFR categories: Stage GFR(ml/min/1.73 m2) Terms G1 >=90 Normal or high G2 60-89 Mildly decreased* G3a 45-59 Mildly to moderately decreased G3b 30-44 Moderately to severely decreased G4 15-29 Severely decreased G5 <15 Kidney failure *Relative to young adult level. In the absence of evidence of kidney damage, neither GFR category G1 nor G2 fulfill the criteria for CKD. The CKD-EPI equation is validated in individuals 18 years of age and older. Currently the best equation for estimating glomerular filtration rate (GFR) from serum creatinine in children is the Bedside Celis equation. It is less accurate in patients with extremes of muscle mass, restriction of dietary protein, ingestion of creatine, extra-renal metabolism of creatinine, or treatment with medications that affect renal tubular creatinine secretion. GFR/1.73 sq M predicted among blacks MDRD (S/P/Bld) [Vol rate/Area] mL/min/{1.73_m2} >60 mL/min [place] Glucose [Mass/Vol] 77 mg/dL 70 - 100 mg/dL [place] Potassium [Moles/Vol] 3.5 mmol/L 3.5 - 5.1 mmol/L [place] Sodium [Moles/Vol] 136 mmol/L 135 - 145 mmol/L [place] Urea nitrogen [Mass/Vol] 20 mg/dL 7 - 20 mg/dL [place] CBCon 11-18-2019 Erythrocyte distribution width (RBC) [Ratio] 15.4 % High 11.5 - 14.5 % [place] Hematocrit (Bld) [Volume fraction] 25.8 % Low 35 - 47 % [place] Hemoglobin (Bld) [Mass/Vol] 8.6 g/dL Low 11.7 - 16 g/dL [place] Interpretation and review of laboratory results Abnormal [place] MCH (RBC) [Entitic mass] 30.9 pg 26 - 34 pg [place] MCHC (RBC) [Mass/Vol] 33.1 % 32 - 36 % [place] MCV (RBC) [Entitic vol] 93.1 fL 79 - 98 fL [place] Platelet mean volume (Bld) [Entitic vol] 7.7 fL 7.4 - 10.4 fL [place] Platelets (Bld) [#/Vol] 390 10*3/uL 140 - 440 10*3/uL [place] RBC (Bld) [#/Vol] 2.77 10*6/uL Low 3.8 - 5.2 10*6/uL [place] WBC (Bld) [#/Vol] 9.3 10*3/uL 3.6 - 10.7 10*3/uL [place] Test Performed by [address] [address] [place] Magnesiumon 11-18-2019 Magnesium [Mass/Vol] 1.9 mg/dL 1.6 - 2 .3 mg/dL [place] Otheron 11-18-2019 Interpretation and review of laboratory results Abnormal [place] Test Performed by [facility], [address] [place] [address] [place] Phosphoruson 11-18-2019 Phosphate [Mass/Vol] 2.4 mg/dL Low 2.5 - 4 .5 mg/dL [place] Basic Metabolic Panelon 10-21 Anion gap [Moles/Vol] 9 mmol/L [place] Calcium [Mass/Vol] 8.4 mg/dL 8.4 - 10. 4 mg/dL [place] Chloride [Moles/Vol] 114 mmol/L High 98 - 10 7 mmol/L [place] CO2 [Moles/Vol] 14 mmol/L Low 22 - 30 mmol/L [place] Creatinine [Mass/Vol] 0.65 mg/dL 0.52 - 1.25 mg/dL [place] EGFR IF NonAfrican [place] >90.0 >60 mL/min [place] Comment on above: KDIGO guidelines pro vide the following GFR categories: Stage GFR(ml/min/1.73 m2) Terms G1 >=90 Normal or high G2 60-89 Mildly decreased* G3a 45-59 Mildly to moderately decreased G3b 30-44 Moderately to severely decreased G4 15-29 Severely decreased G5 <15 Kidney failure *Relative to young adult level. In the absence of evidence of kidney damage, neither GFR category G1 nor G2 fulfill the criteria for CKD. The CKD-EPI equation is validated in individuals 18 years of age and older. Currently the best equation for estimating glomerular filtration rate (GFR) from serum creatinine in children is the Bedside Celis equation. It is less accurate in patients with extremes of muscle mass, restriction of dietary protein, ingestion of creatine, extra-renal metabolism of creatinine, or treatment with medications that affect renal tubular creatinine secretion. GFR/1.73 sq M predicted among blacks MDRD (S/P/Bld) [Vol rate/Area] mL/min/{1.73_m2} >60 mL/min [place] Glucose [Mass/Vol] 81 mg/dL 70 - 100 mg/dL [place] Interpretation and review of laboratory results Abnormal [place] Potassium [Moles/Vol] 3.8 mmol/L 3.5 - 5.1 mmol/L [place] Sodium [Moles/Vol] 136 mmol/L 135 - 145 mmol/L [place] Urea nitrogen [Mass/Vol] 28 mg/dL High 7 - 20 mg/dL [place] Blood Occult Stool Screen #1 on 11-17-2019 Hemoglobin.gastrointes tinal Ql (Stl) Positive Negative NA [place] Test Performed by [facility], [address] [place] [address] [place] CBCon 11-17-2019 Erythrocyte distribution width (RBC) [Ratio] 15.1 % High 11.5 - 14.5 % [place] Hematocrit (Bld) [Volume fraction] 26.6 % Low 35 - 47 % [place] Hemoglobin (Bld) [Mass/Vol] 8.8 g/dL Low 11.7 - 16 g/dL [place] Interpretation and review of laboratory results Abnormal [place] MCH (RBC) [Entitic mass] 31.0 pg 26 - 34 pg [place] MCHC (RBC) [Mass/Vol] 33.1 % 32 - 36 % [place] MCV (RBC) [Entitic vol] 93.7 fL 79 - 98 fL [place] Platelet mean volume (Bld) [Entitic vol] 8.5 fL 7.4 - 10.4 fL [place] Platelets (Bld) [#/Vol] 402 10*3/uL 140 - 440 10*3/uL [place] RBC (Bld) [#/Vol] 2.84 10*6/uL Low 3.8 - 5.2 10*6/uL [place] WBC (Bld) [#/Vol] 12.4 10*3/uL High 3.6 - 10.7 10*3/uL [place] Test Performed by [facility], [address] [place] [id number] [place] [address] CT Abdomen Pelvis W Contrast on 11-17-2019 [facility], [facility] Incoming Radiology Results From [facility] - 11/17/2019 3:30 PM EDT Patient Name: LINDA KIM ---CT--- Exam Date/Time 11/17/2019 10:52:[address] Abdomen/Pelvis w/ IV Contrast (IV Onl Ordering Physician MERLIN HARRISON Accession Number [id number] CPT4 Codes 58550 (CT Abdomen/Pelvis w/ IV Contrast (IV Onl), Q9967 (CT ISOVUE 370MG/[id number]& 1) Reason For Exam pSBO Report CT ABDOMEN AND PELVIS WITH CONTRAST CLINICAL INDICATION: Abdominal distention and suspected bowel obstruction with anemia and bladder resection TECHNIQUE: Transaxial sequence through the abdomen and pelvis with 3 mm reconstruction following oral contrast with dynamic intravenous infusion of 75 mL of 370 mg% contrast media. Coronal and sagittal reconstructions included. Dose reduction was employed with automated exposure control. COMPARISON: CT from 12 days ago FINDINGS: Chest base: There is marked centrilobular emphysema extending into the lung bases. There is atelectasis at the lung bases, greater on the right. No significant pleural fluid collection is noted. Heart size is normal. Coronary artery calcifications are noted. Liver: Normal size and contour. No focal lesion. Biliary tree: Normal caliber. No calcified gallstones identified Spleen: Normal. Adrenals: Normal. Pancreas: Normal. Kidneys: Symmetric contrast enhancement is noted. There are ureteral stents extending into a neobladder in the right lower quadrant. The ureteral stents extend into an ostomy site in the right lower quadrant. No focal renal lesion is identified. Free fluid: Again noted is free intraperitoneal fluid. A previously noted catheter entering the left abdominal wall with its tip in the peritoneal cavity of the right side of the pelvis is no longer identified. Retroperitoneal/mesenter ic lymphadenopathy: None. Aorta: Dense peripheral calcification with diminutive caliber. Bowel: There is again marked dilatation of multiple small bowel loops with caliber as great as 4.5 cm. There is also gaseous distention of transverse colon. No free air is noted. Abdominal wall: Previous noted subcutaneous air within the abdominal wall is no longer identified. Pelvic organs/viscera: No mass identified. The bladder is absent Pelvic lymphadenopathy: None. Osseous structures: Degenerative change of the lower lumbar spine. IMPRESSION: 1. Although there is persistent dilatation of small bowel loops, many of which contain contrast, there is also gaseous distention of the transverse colon. Although distal small bowel obstruction remains in consideration, ileus is alternatively considered. 2. Ureteral diversion with ostomy in the right lower quadrant again noted without hydronephrosis 3. Free intraperitoneal fluid again noted. 4. Peritoneal catheter in the the left side of the abdomen with its tip in the right-sided pelvis has been removed and the subcutaneous gas has resolved since 12 days ago Report Dictated on --- Final --- Dictated: 11/17/2019 3:21 pm Dictating Physician: MD WEINSTEIN JEFFREY Signed Date and Time: 11/17/2019 3:29 pm Signed by: MD WEINSTEIN JEFFREY Transcribed Date and Time: 11/17/2019 3:21 [place] Patient Name: LINDA KIM ---CT--- Exam Date/Time 11/17/2019 10:52:[address] Abdomen/Pelvis w/ IV Contrast (IV Onl Ordering Physician MERLIN HARRISON Accession Number [id number] CPT4 Codes 58282 (CT Abdomen/Pelvis w/ IV Contrast (IV Onl), Q9967 (CT ISOVUE 370MG/[id number]&ML& 1) Reason For Exam pSBO Report CT ABDOMEN AND PELVIS WITH CONTRAST CLINICAL INDICATION: Abdominal distention and suspected bowel obstruction with anemia and bladder resection TECHNIQUE: Transaxial sequence through the abdomen and pelvis with 3 mm reconstruction following oral contrast with dynamic intravenous infusion of 75 mL of 370 mg% contrast media. Coronal and sagittal reconstructions included. Dose reduction was employed with automated exposure control. COMPARISON: CT from 12 days ago FINDINGS: Chest base: There is marked centrilobular emphysema extending into the lung bases. There is atelectasis at the lung bases, greater on the right. No significant pleural fluid collection is noted. Heart size is normal. Coronary artery calcifications are noted. Liver: Normal size and contour. No focal lesion. Biliary tree: Normal caliber. No calcified gallstones identified Spleen: Normal. Adrenals: Normal. Pancreas: Normal. Kidneys: Symmetric contrast enhancement is noted. There are ureteral stents extending into a neobladder in the right lower quadrant. The ureteral stents extend into an ostomy site in the right lower quadrant. No focal renal lesion is identified. Free fluid: Again noted is free intraperitoneal fluid. A previously noted catheter entering the left abdominal wall with its tip in the peritoneal cavity of the right side of the pelvis is no longer identified. Retroperitoneal/mesenter ic lymphadenopathy: None. Aorta: Dense peripheral calcification with diminutive caliber. Bowel: There is again marked dilatation of multiple small bowel loops with caliber as great as 4.5 cm. There is also gaseous distention of transverse colon. No free air is noted. Abdominal wall: Previous noted subcutaneous air within the abdominal wall is no longer identified. Pelvic organs/viscera: No mass identified. The bladder is absent Pelvic lymphadenopathy: None. Osseous structures: Degenerative change of the lower lumbar spine. IMPRESSION: 1. Although there is persistent dilatation of small bowel loops, many of which contain contrast, there is also gaseous distention of the transverse colon. Although distal small bowel obstruction remains in consideration, ileus is alternatively considered. 2. Ureteral diversion with ostomy in the right lower quadrant again noted without hydronephrosis 3. Free intraperitoneal fluid again noted. 4. Peritoneal catheter in the the left side of the abdomen with its tip in the right-sided pelvis has been removed and the subcutaneous gas has resolved since 12 days ago Report Dictated on --- Final --- Dictated: 11/17/2019 3:21 pm Dictating Physician: MD WEINSTEIN JEFFREY Signed Date and Time: 11/17/2019 3:29 pm Signed by: MD WEINSTEIN JEFFREY Transcribed Date and Time: 11/17/2019 3:21 [facility] [place] EKG 12 Lead[place] 11-17-2019 [facility] Test Date: 2019-11-16 Pat Name: Linda Kim Department: 1A6 Room: [facility] Gender: F Ammonia Box Tender: DAVID : 1955 Requested By: TENA ALVARADO Order Number: [id number] Reading MD: Darren Springer Measurements Intervals [place] Rate: 115 P: 74 [place]: 111 QRS: 38 QRSD: 93 T: 43 QT: 339 QTc: 469 Interpretive Statements Sinus tachycardia Probable left atrial enlargement Electronically Signed On 11-17-2019 10:20:04 EDT by Darren Springer [place], [place] Jatin, [facility] Incoming Cardiology Results From Merge[facility] - 11/17/2019 10:21 AM EDT [facility] Test Date: 2019-11-16 Pat Name: Linda Kim Department: 1A6 Room: [facility] Gender: F Ammonia Box Tender: DAVID : 1955 Requested By: TENA ALVARADO Order Number: [id number] Reading MD: Darren Springer Measurements Intervals [place] Rate: 115 P: 74 [place]: 111 QRS: 38 QRSD: 93 T: 43 QT: 339 QTc: 469 Interpretive Statements Sinus tachycardia Probable left atrial enlargement Electronically Signed On 11-17-2019 10:20:04 EDT by Darren Springer [place] Magnesiumon 11-17-2019 Magnesium [Mass/Vol] 1.9 mg/dL 1.6 - 2 .3 mg/dL [place] Otheron 11-17-2019 Test Performed by [facility], [address] [place] [address] [place] Phosphoruson 11-17-2019 Phosphate [Mass/Vol] 3.5 mg/dL 2.5 - 4 .5 mg/dL [place] CBC Auto Differentialon 10-21 Erythrocyte distribution width (RBC) [Ratio] 16.2 % High 11.5 - 14.5 % [place] Hematocrit (Bld) [Volume fraction] 22.9 % Low 35 - 47 % [place] Hemoglobin (Bld) [Mass/Vol] 7.0 g/dL Low 11.7 - 16 g/dL [place] Interpretation and review of laboratory results Abnormal [place] MCH (RBC) [Entitic mass] 29.7 pg 26 - 34 pg [place] MCHC (RBC) [Mass/Vol] 30.4 % Low 32 - 36 % [place] MCV (RBC) [Entitic vol] 97.7 fL 79 - 98 fL [place] Platelet mean volume (Bld) [Entitic vol] 8.8 fL 7.4 - 10.4 fL [place] Platelets (Bld) [#/Vol] 453 10*3/uL High 140 - 440 10*3/uL [place] RBC (Bld) [#/Vol] 2.34 10*6/uL Low 3.8 - 5.2 10*6/uL [place] WBC (Bld) [#/Vol] 18.2 10*3/uL High 3.6 - 10.7 10*3/uL [place] Test Performed by [facility], [facility] [place] [address] [place] Comprehensive Metabolic Pane jamari 11-16-2019 Albumin [Mass/Vol] 2.5 g/dL Low 3.5 - 5 g/dL [place] ALP [Catalytic activity/Vol] 176 U/L High 38 - 126 U/L [place] ALT [Catalytic activity/Vol] 72 U/L High 0 - 34 U/L [place] Comment on above: The ALT test is perf ormed by an updated assay method. Please note that the reference intervals have been changed and are now sex specific. Anion gap [Moles/Vol] 11 mmol/L [place], [place] AST [Catalytic activity/Vol] 33 U/L 15 - 46 U/L [place] Bilirubin Ql (U) 0.6 mg/dL 0.2 - 1.3 mg/dL [place] Calcium [Mass/Vol] 8.3 mg/dL Low 8.4 - 10. 4 mg/dL [place] Chloride [Moles/Vol] 109 mmol/L High 98 - 10 7 mmol/L [place] CO2 [Moles/Vol] 11 mmol/L Low 22 - 30 mmol/L [place] Creatinine [Mass/Vol] 0.97 mg/dL 0.52 - 1.25 mg/dL [place] EGFR IF NonAfrican [place] 61.1 mL/min >60 [place], [place] Comment on above: KDIGO guidelines pro vide the following GFR categories: Stage GFR(ml/min/1.73 m2) Terms G1 >=90 Normal or high G2 60-89 Mildly decreased* G3a 45-59 Mildly to moderately decreased G3b 30-44 Moderately to severely decreased G4 15-29 Severely decreased G5 <15 Kidney failure *Relative to young adult level. In the absence of evidence of kidney damage, neither GFR category G1 nor G2 fulfill the criteria for CKD. The CKD-EPI equation is validated in individuals 18 years of age and older. Currently the best equation for estimating glomerular filtration rate (GFR) from serum creatinine in children is the Bedside Celis equation. It is less accurate in patients with extremes of muscle mass, restriction of dietary protein, ingestion of creatine, extra-renal metabolism of creatinine, or treatment with medications that affect renal tubular creatinine secretion. GFR/1.73 sq M predicted among blacks MDRD (S/P/Bld) [Vol rate/Area] 70.8 mL/min/{1.73_m2} >60 [place] Glucose [Mass/Vol] 79 mg/dL 70 - 100 mg/dL [place] Interpretation and review of laboratory results Abnormal [place] Potassium [Moles/Vol] 5.0 mmol/L 3.5 - 5.1 mmol/L [place] Protein [Mass/Vol] 5.0 g/dL Low 6.3 - 8.2 g/dL [place] Sodium [Moles/Vol] 131 mmol/L Low 135 - 145 mmol/L [place] Urea nitrogen [Mass/Vol] 43 mg/dL High 7 - 20 mg/dL [place] Test Performed by [facility], [address] [place] [id number] [place] [address] Hematologyon 11-16-2019 ABO and Rh group Nom (Bld) 5100 [place], [place] Hemoglobin and Hematocrit, B loodon 11-16-2019 Hematocrit (Bld) [Volume fraction] 23.4 % Low 35 - 47 % [place] Hemoglobin (Bld) [Mass/Vol] 7.5 g/dL Low 11.7 - 16 g/dL [place] Interpretation and review of laboratory results Abnormal [place] Test Performed by [facility], [address] [place] [address] [place] Hemoglobin and Hematocrit, B lood, Post Transfusionon 11-16-2019 Hematocrit (Bld) [Volume fraction] 26.8 % Low 35 - 47 % [place] Hemoglobin (Bld) [Mass/Vol] 8.7 g/dL Low 11.7 - 16 g/dL [place] Interpretation and review of laboratory results Abnormal [place] Test Performed by [facility], [address] [place] [address] [place], [place] Manual Differentialon 2019 Absolute Baso # 0.0 10*3/uL 0 - 0.2 10*3/uL [place] Absolute Eos # 0.0 10*3/uL 0 - 0.5 10*3/uL [facility] [place] Absolute Lymph # 0.4 10*3/uL Low 1.1 - 4.5 10*3/uL [facility] Absolute Dale # 0.4 10*3/uL 0.2 - 1.1 10*3/uL [place] Absolute Neut # 17.5 10*3/uL High 2.2 - 8.2 10*3/uL [place] Anisocytosis Ql (Bld) [facility] Bands 2 % 0 - 3 % [facility] [place] Basophils 0 % 0 - 2 % [facility] [place] Reanna Cells Few [place], [place] Eosinophils 0 % Low 1 - 6 % [facility] [place] Hypochromia [place] Interpretation and review of laboratory results Abnormal [place] Lymphocytes 2 % Low 20 - 40 % [facility] [place] Macrocytosis [facility] Monocytes 2 % 2 - 10 % [facility] [place] Pappenheimer Bodies Few [place], [place] Poikilocytes [facility] [place] Polychromasia [place] RBC morphology finding Nom (Bld) ABNORMAL [place] Seg Neutrophils 94 % High 40 - 80 % [place] TOTAL CELLS COUNTED 100 [place] Test Performed by [facility], [address] [place] [address] [place] Metabolic Panelon 11-16-2019 Sodium [Moles/Vol] transfused [place] Sodium [Moles/Vol] [id number] [place] PREPARE RBC (CROSSMATCH), 1 Unitson 11-16-2019 Blood product unit ID (Dose) [#] [id number] [place] Blood product unit ID (Dose) [#] [id number] [place] Sodium [Moles/Vol] [id number] mmol/L [place] Sodium [Moles/Vol] [id number] mmol/L [place], [place] Procalcitoninon 11-16-2019 Interpretation and review of laboratory results Abnormal [place] Procalcitonin 0.67 ng/mL Abnormal <0.10 [place] Sodium [Moles/Vol] See Below [place], [place] Comment on above: PCT <0.50 = Low risk of severe sepsis and/or septic shock. PCT >2.00 = High risk of severe sepsis and/or septic shock. Test Performed by [place] [address] [email or web address] [address] [place] Interpretation and review of laboratory results Abnormal [place] Procalcitonin 0.62 ng/mL Abnormal <0.10 [place] Sodium [Moles/Vol] See Below [place], [place] Comment on above: PCT <0.50 = Low risk of severe sepsis and/or septic shock. PCT >2.00 = High risk of severe sepsis and/or septic shock. Test Performed by [facility] [address] [place] [address] [email or web address] [address] [place] Protime-INRon 11-16-2019 INR Coag (PPP) [Relative time] 1.1 {INR} [place], [place] Comment on above: Recommended Anticoag ulant Therapy: SEE BELOW ----- INR of 2.0 - 3.0 : - Prophylaxis of Venous Thrombosis (high-risk surgery) - Treatment of Venous Thrombosis - Treatment of Pulmonary Embolism (Includes tissue heart valves, Acute Myocardial Infarction to prevent systemic embolism, Valvular Heart Disease, and Atrial Fibrillation) ----- INR of 2.5 - 3.5 : - Mechanical Prosthetic Valves (high risk) - If oral anticoagulant therapy is used to prevent Myocardial Infarction PT Coag (PPP) [Time] 11.4 s 9 - 12 s [place] Comment on above: . Test Performed by [employer] [place] [address] [email or web address] [address] [place] TYPE AND SCREENon 11-16-2019 Sodium [Moles/Vol] O [place] Sodium [Moles/Vol] Positive [place] Sodium [Moles/Vol] Negative [place] Test Performed by [facility], [address] [place] [address] [place] Troponinon 11-16-2019 Troponin I.cardiac [Mass/Vol] ng/mL 0 - 0.034 ng/mL [place] Comment on above: . Test Performed by [facility], [address] [place] [address] [place] Troponin I.cardiac [Mass/Vol] ng/mL 0 - 0.034 ng/mL [place], [place] Comment on above: . Test Performed by [facility], [address] [place] [address] [place] Troponin I.cardiac [Mass/Vol] ng/mL 0 - 0.034 ng/mL [place] Comment on above: . Test Performed by [facility], [address] [place] [address] [place] Basic Metabolic Panelon 10-21 Anion gap [Moles/Vol] 7 mmol/L [place] Calcium [Mass/Vol] 9.0 mg/dL 8.4 - 10. 4 mg/dL [place] Chloride [Moles/Vol] 112 mmol/L High 98 - 10 7 mmol/L [place] CO2 [Moles/Vol] 19 mmol/L Low 22 - 30 mmol/L [place], [place] Creatinine [Mass/Vol] 0.55 mg/dL 0.52 - 1.25 mg/dL [place] EGFR IF NonAfrican [place] >90.0 >60 mL/min [place], [place] Comment on above: KDIGO guidelines pro vide the following GFR categories: Stage GFR(ml/min/1.73 m2) Terms G1 >=90 Normal or high G2 60-89 Mildly decreased* G3a 45-59 Mildly to moderately decreased G3b 30-44 Moderately to severely decreased G4 15-29 Severely decreased G5 <15 Kidney failure *Relative to young adult level. In the absence of evidence of kidney damage, neither GFR category G1 nor G2 fulfill the criteria for CKD. The CKD-EPI equation is validated in individuals 18 years of age and older. Currently the best equation for estimating glomerular filtration rate (GFR) from serum creatinine in children is the Bedside Celis equation. It is less accurate in patients with extremes of muscle mass, restriction of dietary protein, ingestion of creatine, extra-renal metabolism of creatinine, or treatment with medications that affect renal tubular creatinine secretion. GFR/1.73 sq M predicted among blacks MDRD (S/P/Bld) [Vol rate/Area] mL/min/{1.73_m2} >60 mL/min [place] Glucose [Mass/Vol] 94 mg/dL 70 - 100 mg/dL [place] Potassium [Moles/Vol] 4.1 mmol/L 3.5 - 5.1 mmol/L [place] Sodium [Moles/Vol] 137 mmol/L 135 - 145 mmol/L [place] Urea nitrogen [Mass/Vol] 37 mg/dL High 7 - 20 mg/dL [place] CBC Auto Differentialon 10-21 Erythrocyte distribution width (RBC) [Ratio] 16.5 % High 11.5 - 14.5 % [place] Hematocrit (Bld) [Volume fraction] 29.9 % Low 35 - 47 % [place] Hemoglobin (Bld) [Mass/Vol] 9.5 g/dL Low 11.7 - 16 g/dL [place] Interpretation and review of laboratory results Abnormal [place] MCH (RBC) [Entitic mass] 30.7 pg 26 - 34 pg [place] MCHC (RBC) [Mass/Vol] 31.9 % Low 32 - 36 % [place], [place] MCV (RBC) [Entitic vol] 96.0 fL 79 - 98 fL [place] Platelet mean volume (Bld) [Entitic vol] 8.5 fL 7.4 - 10.4 fL [place] Platelets (Bld) [#/Vol] 468 10*3/uL High 140 - 440 10*3/uL [place] RBC (Bld) [#/Vol] 3.11 10*6/uL Low 3.8 - 5.2 10*6/uL [place] WBC (Bld) [#/Vol] 14.8 10*3/uL High 3.6 - 10.7 10*3/uL [place] Test Performed by [facility], [address] [place] [address] [place] Hepatic Function Panelon Albumin [Mass/Vol] 3.1 g/dL Low 3.5 - 5 g/dL [place] ALP [Catalytic activity/Vol] 292 U/L High 38 - 126 U/L [place] ALT [Catalytic activity/Vol] 138 U/L High 0 - 34 U/L [place] Comment on above: The ALT test is perf ormed by an updated assay method. Please note that the reference intervals have been changed and are now sex specific. AST [Catalytic activity/Vol] 119 U/L High 15 - 46 U/L [place] Bilirubin Ql (U) 1.2 mg/dL 0.2 - 1.3 mg/dL [place] Bilirubin.direct [Mass/Vol] 0.0 mg/dL 0 - 0.3 mg/dL [place] Protein [Mass/Vol] 5.9 g/dL Low 6.3 - 8.2 g/dL [place] Magnesiumon 11-12-2019 Magnesium [Mass/Vol] 2.0 mg/dL 1.6 - 2 .3 mg/dL [place] Manual Differentialon 2019 Absolute Baso # 0.0 10*3/uL 0 - 0.2 10*3/uL [place] Absolute Eos # 0.3 10*3/uL 0 - 0.5 10*3/uL [place] Absolute Lymph # 0.4 10*3/uL Low 1.1 - 4.5 10*3/uL [place] Absolute Dale # 1.5 10*3/uL High 0.2 - 1.1 10*3/uL [place] Absolute Neut # 12.6 10*3/uL High 2.2 - 8.2 10*3/uL [place] Anisocytosis Ql (Bld) Slight [place], [place] Bands 2 % 0 - 3 % [facility], [place] Basophils 0 % 0 - 2 % [facility] Eosinophils 2 % 1 - 6 % [facility] Hypochromia Slight [facility] Interpretation and review of laboratory results Abnormal [facility], [place] Lymphocytes 3 % Low 20 - 40 % [facility] Monocytes 10 % 2 - 10 % [facility] Ovalocytes Slight [facility] Poikilocytes [place]light [facility] Polychromasia [place] [facility] RBC morphology finding Nom (Bld) ABNORMAL [facility] Seg Neutrophils 83 % High 40 - 80 % [facility] TOTAL CELLS COUNTED 100 [place] Test Performed by [facility], [address] [place] [address] [facility] Otheron 11-12-2019 Interpretation and review of laboratory results Abnormal [place] Test Performed by [address] [address] [place] Phosphoruson 11-12-2019 Phosphate [Mass/Vol] 3.7 mg/dL 2.5 - 4 .5 mg/dL [place] Basic Metabolic Panelon 10-21 Anion gap [Moles/Vol] 10 mmol/L [place] Calcium [Mass/Vol] 9.0 mg/dL 8.4 - 10. 4 mg/dL [place] Chloride [Moles/Vol] 108 mmol/L High 98 - 10 7 mmol/L [place] CO2 [Moles/Vol] 20 mmol/L Low 22 - 30 mmol/L [place] Creatinine [Mass/Vol] 0.49 mg/dL Low 0.52 - 1.25 mg/dL [place] EGFR IF NonAfrican [place] >90.0 >60 mL/min [place] Comment on above: KDIGO guidelines pro vide the following GFR categories: Stage GFR(ml/min/1.73 m2) Terms G1 >=90 Normal or high G2 60-89 Mildly decreased* G3a 45-59 Mildly to moderately decreased G3b 30-44 Moderately to severely decreased G4 15-29 Severely decreased G5 <15 Kidney failure *Relative to young adult level. In the absence of evidence of kidney damage, neither GFR category G1 nor G2 fulfill the criteria for CKD. The CKD-EPI equation is validated in individuals 18 years of age and older. Currently the best equation for estimating glomerular filtration rate (GFR) from serum creatinine in children is the Bedside Celis equation. It is less accurate in patients with extremes of muscle mass, restriction of dietary protein, ingestion of creatine, extra-renal metabolism of creatinine, or treatment with medications that affect renal tubular creatinine secretion. GFR/1.73 sq M predicted among blacks MDRD (S/P/Bld) [Vol rate/Area] mL/min/{1.73_m2} >60 mL/min [place] Glucose [Mass/Vol] 129 mg/dL High 70 - 100 mg/dL [place] Potassium [Moles/Vol] 3.4 mmol/L Low 3.5 - 5.1 mmol/L [place] Sodium [Moles/Vol] 139 mmol/L 135 - 145 mmol/L [place] Urea nitrogen [Mass/Vol] 45 mg/dL High 7 - 20 mg/dL [place], [place] CBC Auto Differentialon - Absolute Baso # 0.0 10*3/uL 0 - 0.2 10*3/uL [place] Absolute Neut # 14.2 10*3/uL High 1.8 - 7 10*3/uL [place] Basophils/100 WBC (Bld) 0.1 % 0 - 2 % [place] Eosinophils (Bld) [#/Vol] 0.1 10*3/uL 0 - 0.5 10*3/uL [place] Eosinophils/100 WBC (Bld) 0.5 % Low 1 - 6 % [place] Erythrocyte distribution width (RBC) [Ratio] 16.6 % High 11.5 - 14.5 % [place] Granulocytes/100 WBC (Bld) 86.6 % High 40 - 80 % [place] Hematocrit (Bld) [Volume fraction] 30.5 % Low 35 - 47 % [place] Hemoglobin (Bld) [Mass/Vol] 9.8 g/dL Low 11.7 - 16 g/dL [place], [place] Interpretation and review of laboratory results Abnormal [place] Lymphocytes (Bld) [#/Vol] 0.7 10*3/uL Low 1 - 4.3 10*3/uL [place] Lymphocytes/100 WBC (Bld) 4.2 % Low 20 - 40 % [place] MCH (RBC) [Entitic mass] 30.6 pg 26 - 34 pg [place] MCHC (RBC) [Mass/Vol] 32.2 % 32 - 36 % [place], [place] MCV (RBC) [Entitic vol] 95.3 fL 79 - 98 fL [place] Monocytes (Bld) [#/Vol] 1.4 10*3/uL High 0 - 0.8 10*3/uL [place] Monocytes/100 WBC (Bld) 8.6 % 2 - 10 % [place] Platelet mean volume (Bld) [Entitic vol] 8.2 fL 7.4 - 10.4 fL [place] Platelets (Bld) [#/Vol] 510 10*3/uL High 140 - 440 10*3/uL [place] RBC (Bld) [#/Vol] 3.21 10*6/uL Low 3.8 - 5.2 10*6/uL [place] WBC (Bld) [#/Vol] 16.4 10*3/uL High 3.6 - 10.7 10*3/uL [place] Test Performed by [facility], [address] [place] [address] [place] Hepatic Function Panelon Albumin [Mass/Vol] 3.4 g/dL Low 3.5 - 5 g/dL [place] ALP [Catalytic activity/Vol] 201 U/L High 38 - 126 U/L [place] ALT [Catalytic activity/Vol] 49 U/L High 0 - 34 U/L [place] Comment on above: The ALT test is perf ormed by an updated assay method. Please note that the reference intervals have been changed and are now sex specific. AST [Catalytic activity/Vol] 52 U/L High 15 - 46 U/L [place] Bilirubin Ql (U) 2.3 mg/dL High 0.2 - 1.3 mg/dL [place] Bilirubin.direct [Mass/Vol] 0.1 mg/dL 0 - 0.3 mg/dL [place] Protein [Mass/Vol] 6.2 g/dL Low 6.3 - 8.2 g/dL [place] Magnesiumon 11-11-2019 Magnesium [Mass/Vol] 2.0 mg/dL 1.6 - 2 .3 mg/dL [place], [place] Otheron 11-11-2019 Interpretation and review of laboratory results Abnormal [place] Test Performed by [facility], [address] [place] [address] [place] Phosphoruson 11-11-2019 Phosphate [Mass/Vol] 3.9 mg/dL 2.5 - 4 .5 mg/dL [place] Basic Metabolic Panelon 10-21 Anion gap [Moles/Vol] 10 mmol/L [place], [place] Calcium [Mass/Vol] 9.4 mg/dL 8.4 - 10. 4 mg/dL [place] Chloride [Moles/Vol] 109 mmol/L High 98 - 10 7 mmol/L [place] CO2 [Moles/Vol] 23 mmol/L 22 - 30 mmol/L [place] Creatinine [Mass/Vol] 0.6 mg/dL 0.52 - 1.25 mg/dL [place] EGFR IF NonAfrican [place] >90.0 >60 mL/min [place] Comment on above: KDIGO guidelines pro vide the following GFR categories: Stage GFR(ml/min/1.73 m2) Terms G1 >=90 Normal or high G2 60-89 Mildly decreased* G3a 45-59 Mildly to moderately decreased G3b 30-44 Moderately to severely decreased G4 15-29 Severely decreased G5 <15 Kidney failure *Relative to young adult level. In the absence of evidence of kidney damage, neither GFR category G1 nor G2 fulfill the criteria for CKD. The CKD-EPI equation is validated in individuals 18 years of age and older. Currently the best equation for estimating glomerular filtration rate (GFR) from serum creatinine in children is the Bedside Celis equation. It is less accurate in patients with extremes of muscle mass, restriction of dietary protein, ingestion of creatine, extra-renal metabolism of creatinine, or treatment with medications that affect renal tubular creatinine secretion. GFR/1.73 sq M predicted among blacks MDRD (S/P/Bld) [Vol rate/Area] mL/min/{1.73_m2} >60 mL/min [place] Glucose [Mass/Vol] 117 mg/dL High 70 - 100 mg/dL [place] Potassium [Moles/Vol] 3.7 mmol/L 3.5 - 5.1 mmol/L [place] Sodium [Moles/Vol] 142 mmol/L 135 - 145 mmol/L [place] Urea nitrogen [Mass/Vol] 64 mg/dL High 7 - 20 mg/dL [place] CBC Auto Differentialon - Erythrocyte distribution width (RBC) [Ratio] 17.1 % High 11.5 - 14.5 % [place] Hematocrit (Bld) [Volume fraction] 31.6 % Low 35 - 47 % [place] Hemoglobin (Bld) [Mass/Vol] 10.3 g/dL Low 11.7 - 16 g/dL [place], [place] Interpretation and review of laboratory results Abnormal [place] MCH (RBC) [Entitic mass] 31.1 pg 26 - 34 pg [place] MCHC (RBC) [Mass/Vol] 32.6 % 32 - 36 % [place], [place] MCV (RBC) [Entitic vol] 95.4 fL 79 - 98 fL [place] Platelet mean volume (Bld) [Entitic vol] 8.1 fL 7.4 - 10.4 fL [place] Platelets (Bld) [#/Vol] 629 10*3/uL High 140 - 440 10*3/uL [place] RBC (Bld) [#/Vol] 3.31 10*6/uL Low 3.8 - 5.2 10*6/uL [place] WBC (Bld) [#/Vol] 20.4 10*3/uL High 3.6 - 10.7 10*3/uL [place] Test Performed by [facility], [address] [place] [address] [place], [place] Calcium, Ionizedon 0 Interpretation and review of laboratory results Abnormal [place] Ionized Ca 4.70 mg/dL 4.3 - 5.2 mg/dL [place] pH (Bld) 7.55 [pH] High [place] Test Performed by [address] [address] [place] Hepatic Function Panelon Albumin [Mass/Vol] 3.5 g/dL 3.5 - 5 g/dL [place] ALP [Catalytic activity/Vol] 206 U/L High 38 - 126 U/L [place] ALT [Catalytic activity/Vol] 34 U/L 0 - 34 U/L [place] Comment on above: The ALT test is perf ormed by an updated assay method. Please note that the reference intervals have been changed and are now sex specific. AST [Catalytic activity/Vol] 46 U/L 15 - 46 U/L [place] Bilirubin Ql (U) 3.0 mg/dL High 0.2 - 1.3 mg/dL [place] Bilirubin.direct [Mass/Vol] 0.7 mg/dL High 0 - 0.3 mg/dL [place] Protein [Mass/Vol] 6.6 g/dL 6.3 - 8.2 g/dL [place] Magnesiumon 11-10-2019 Magnesium [Mass/Vol] 2.2 mg/dL 1.6 - 2 .3 mg/dL [place] Manual Differentialon 2019 Absolute Baso # 0.0 10*3/uL 0 - 0.2 10*3/uL [place] Absolute Eos # 0.0 10*3/uL 0 - 0.5 10*3/uL [facility] [place] Absolute Lymph # 0.0 10*3/uL Low 1.1 - 4.5 10*3/uL [facility] [place] Absolute Dale # 0.4 10*3/uL 0.2 - 1.1 10*3/uL [facility], [place] Absolute Neut # 20.0 10*3/uL High 2.2 - 8.2 10*3/uL [facility] [place] Bands 7 % High 0 - 3 % [facility] [place] Basophils 0 % 0 - 2 % [facility] [place], [place] Eosinophils 0 % Low 1 - 6 % [facility] [facility] [place] Interpretation and review of laboratory results Abnormal [place] Lymphocytes 0 % Low 20 - 40 % [facility] [place] Monocytes 2 % 2 - 10 % [facility] [place], [place] Ovalocytes Slight [facility] Seg Neutrophils 91 % High 40 - 80 % [facility] [place] TOTAL CELLS COUNTED 100 [place] Test Performed by [facility], [address] [place] [id number] [place] Otheron 11-10-2019 Interpretation and review of laboratory results Abnormal [place] Test Performed by [address] [address] [place] Phosphoruson 11-10-2019 Phosphate [Mass/Vol] 3.2 mg/dL 2.5 - 4 .5 mg/dL [place] XR ABDOMEN (KUB) (SINGLE AP VIEW)on 11-10-2019 [facility] Incoming Radiology Results From [facility] - 11/10/2019 2:50 PM EDT Patient Name: LINDA KIM ---Diagnostic Radiology--- Exam Date/Time 11/10/2019 09:34:00 EDT Exam CR Abdomen AP Ordering Physician MERLIN HARRISON Accession Number [id number] CPT4 Codes 67728 () Reason For Exam pSBO, bowel gas pattern Report KUB CLINICAL INDICATION: Partial small bowel obstruction. Evaluate gas pattern. COMPARISON: Yesterday Supine image of the abdomen was obtained. Oral gastric tube tip projects in the gastric fundus area bilateral ureteral stents are noted exiting an ileoconduit. There is residual contrast material mixed with air in the colon. Colon is mildly dilated. Small bowel dilatation shows improvement compared to the prior study but is not completely resolved. Pancreatic calcifications are unchanged. No acute osseous changes are noted in the interval. IMPRESSION: There is decrease in small bowel dilatation compared to the prior study and persistent colonic dilatation Report Dictated on --- Final --- Dictated: 11/10/2019 2:47 pm Dictating Physician: MD MENDOZA DIANE Signed Date and Time: 11/10/2019 2:49 pm Signed by: MD MENDOZA DIANE Transcribed Date and Time: 11/10/2019 2:47 [place] Patient Name: LINDA KIM ---Diagnostic Radiology--- Exam Date/Time 11/10/2019 09:34:00 EDT Exam CR Abdomen AP Ordering Physician MERLIN HARRISON Accession Number [id number] CPT4 Codes 25139 () Reason For Exam pSBO, bowel gas pattern Report KUB CLINICAL INDICATION: Partial small bowel obstruction. Evaluate gas pattern. COMPARISON: Yesterday Supine image of the abdomen was obtained. Oral gastric tube tip projects in the gastric fundus area bilateral ureteral stents are noted exiting an ileoconduit. There is residual contrast material mixed with air in the colon. Colon is mildly dilated. Small bowel dilatation shows improvement compared to the prior study but is not completely resolved. Pancreatic calcifications are unchanged. No acute osseous changes are noted in the interval. IMPRESSION: There is decrease in small bowel dilatation compared to the prior study and persistent colonic dilatation Report Dictated on --- Final --- Dictated: 11/10/2019 2:47 pm Dictating Physician: MD MENDOZA DIANE Signed Date and Time: 11/10/2019 2:49 pm Signed by: MD MENDOZA DIANE Transcribed Date and Time: 11/10/2019 2:47 [place] Basic Metabolic Panelon 10-21 Anion gap [Moles/Vol] 12 mmol/L [place], [place] Calcium [Mass/Vol] 9.7 mg/dL 8.4 - 10. 4 mg/dL [place] Chloride [Moles/Vol] 111 mmol/L High 98 - 10 7 mmol/L [place] CO2 [Moles/Vol] 23 mmol/L 22 - 30 mmol/L [place] Creatinine [Mass/Vol] 1.01 mg/dL 0.52 - 1.25 mg/dL [place] EGFR IF NonAfrican [place]bourger 58.2 mL/min Abnormal >60 [place], [place] Comment on above: KDIGO guidelines pro vide the following GFR categories: Stage GFR(ml/min/1.73 m2) Terms G1 >=90 Normal or high G2 60-89 Mildly decreased* G3a 45-59 Mildly to moderately decreased G3b 30-44 Moderately to severely decreased G4 15-29 Severely decreased G5 <15 Kidney failure *Relative to young adult level. In the absence of evidence of kidney damage, neither GFR category G1 nor G2 fulfill the criteria for CKD. The CKD-EPI equation is validated in individuals 18 years of age and older. Currently the best equation for estimating glomerular filtration rate (GFR) from serum creatinine in children is the Bedside Celis equation. It is less accurate in patients with extremes of muscle mass, restriction of dietary protein, ingestion of creatine, extra-renal metabolism of creatinine, or treatment with medications that affect renal tubular creatinine secretion. GFR/1.73 sq M predicted among blacks MDRD (S/P/Bld) [Vol rate/Area] 67.4 mL/min/{1.73_m2} >60 [place] Glucose [Mass/Vol] 131 mg/dL High 70 - 100 mg/dL [place] Potassium [Moles/Vol] 4.3 mmol/L 3.5 - 5.1 mmol/L [place] Sodium [Moles/Vol] 145 mmol/L 135 - 145 mmol/L [place] Urea nitrogen [Mass/Vol] 94 mg/dL High 7 - 20 mg/dL [place], [place] CBC Auto Differentialon 06-2 0-2020 Absolute Baso # 0.0 10*3/uL 0 - 0.2 10*3/uL [place] Absolute Neut # 22.3 10*3/uL High 1.8 - 7 10*3/uL [place] Basophils/100 WBC (Bld) 0.2 % 0 - 2 % [place] Eosinophils (Bld) [#/Vol] 0.0 10*3/uL 0 - 0.5 10*3/uL [place] Eosinophils/100 WBC (Bld) 0.0 % Low 1 - 6 % [place] Erythrocyte distribution width (RBC) [Ratio] 17.9 % High 11.5 - 14.5 % [place] Granulocytes/100 WBC (Bld) 92.8 % High 40 - 80 % [place] Hematocrit (Bld) [Volume fraction] 33.3 % Low 35 - 47 % [place] Hemoglobin (Bld) [Mass/Vol] 10.4 g/dL Low 11.7 - 16 g/dL [place] Interpretation and review of laboratory results Abnormal [place] Lymphocytes (Bld) [#/Vol] 0.6 10*3/uL Low 1 - 4.3 10*3/uL [place] Lymphocytes/100 WBC (Bld) 2.6 % Low 20 - 40 % [place] MCH (RBC) [Entitic mass] 30.4 pg 26 - 34 pg [place] MCHC (RBC) [Mass/Vol] 31.2 % Low 32 - 36 % [place] MCV (RBC) [Entitic vol] 97.4 fL 79 - 98 fL [place] Monocytes (Bld) [#/Vol] 1.0 10*3/uL High 0 - 0.8 10*3/uL [place] Monocytes/100 WBC (Bld) 4.4 % 2 - 10 % [place] Platelet mean volume (Bld) [Entitic vol] 8.5 fL 7.4 - 10.4 fL [place] Platelets (Bld) [#/Vol] 691 10*3/uL High 140 - 440 10*3/uL [place] RBC (Bld) [#/Vol] 3.42 10*6/uL Low 3.8 - 5.2 10*6/uL [place] WBC (Bld) [#/Vol] 24.0 10*3/uL High 3.6 - 10.7 10*3/uL [place] Test Performed by [facility], [address] [place] [address] [place], [place] EKG 12 Leadon 11-09-2019 [facility] Test Date: 2019-11-08 Pat Name: Linda Kim Department: 1A6 Room: [facility] Gender: F Ammonia Box Tender: MELVIN : 1955 Requested By: GERMAN GOMEZ Order Number: [id number] Reading MD: Darren Springer Measurements Intervals [place] Rate: 123 P: 60 [place]: 121 QRS: 20 QRSD: 87 T: 62 QT: 301 QTc: 431 Interpretive Statements Sinus tachycardia Left atrial enlargement Electronically Signed On 11-09-2019 9:05:10 EDT by Darren [place] Jatin, [facility] Incoming Cardiology Results From [facility] - 11/09/2019 9:06 AM EDT [facility] Test Date: 2019-11-08 Pat Name: Linda Kim Department: 1A6 Room: [facility] Gender: F Ammonia Box Tender: MELVIN : 1955 Requested By: GERMAN GOMEZ Order Number: [id number] Reading MD: Darren Springer Measurements Intervals [place] Rate: 123 P: 60 [place]: 121 QRS: 20 QRSD: 87 T: 62 QT: 301 QTc: 431 Interpretive Statements Sinus tachycardia Left atrial enlargement Electronically Signed On 11-09-2019 9:05:10 EDT by Darren Lealwistanley [place], [place] Hepatic Function Panelon Albumin [Mass/Vol] 3.8 g/dL 3.5 - 5 g/dL [place] ALP [Catalytic activity/Vol] 244 U/L High 38 - 126 U/L [place] ALT [Catalytic activity/Vol] 38 U/L High 0 - 34 U/L [place] Comment on above: The ALT test is perf ormed by an updated assay method. Please note that the reference intervals have been changed and are now sex specific. AST [Catalytic activity/Vol] 47 U/L High 15 - 46 U/L [place] Bilirubin Ql (U) 2.8 mg/dL High 0.2 - 1.3 mg/dL [place] Bilirubin.direct [Mass/Vol] 0.3 mg/dL 0 - 0.3 mg/dL [place] Protein [Mass/Vol] 7.0 g/dL 6.3 - 8.2 g/dL [place] Magnesiumon 11-09-2019 Magnesium [Mass/Vol] 2.5 mg/dL High 1.6 - 2 .3 mg/dL [place] Otheron 11-09-2019 Interpretation and review of laboratory results Abnormal [place] Test Performed by [facility], [address] [place] [address] [place] Phosphoruson 11-09-2019 Phosphate [Mass/Vol] 3.7 mg/dL 2.5 - 4 .5 mg/dL [place] XR ABDOMEN (KUB) (SINGLE AP VIEW)on 11-09-2019 [facility] Incoming Radiology Results From [facility] - 11/09/2019 10:36 AM EDT Patient Name: LINDA KIM ---Diagnostic Radiology--- Exam Date/Time 11/09/2019 10:19:15 EDT Exam CR Abdomen AP Ordering Physician [id number] STEFAN COBB Accession Number [id number] CPT4 Codes 56132 () Reason For Exam ileus, NG tube Report EXAM TYPE: CR Abdomen AP EXAM DATE AND TIME: 11/09/2019 10:19 AM EDT INDICATION: 64 years Female with ileus, enteric tube COMPARISON: The graft from yesterday TECHNIQUE: AP supine radiograph of the abdomen and pelvis was obtained. FINDINGS: An enteric tube terminates overlying the gastric fundus. Redemonstration of dilated gas-filled small bowel loops. Limited evaluation for free air or air-fluid levels on supine-only imaging. Bilateral ureteral stents are present extending through a urostomy. Pancreatic calcifications related to chronic pancreatitis. Degenerative changes are seen in the visualized spine. The visualized lung bases are unremarkable. IMPRESSION: Dilated small bowel, ileus versus obstruction. Enteric tube in place. Ureteral stents. Chronic pancreatitis. Report Dictated on Workstation: [id number] --- Final --- Dictated: 11/09/2019 10:33 am Dictating Physician: MD MILLARD NICHOLAS Signed Date and Time: 11/09/2019 10:35 am Signed by: MD MILLARD NICHOLAS Transcribed Date and Time: 11/09/2019 10:33 [place] Patient Name: LINDA KIM ---Diagnostic Radiology--- Exam Date/Time 11/09/2019 10:19:15 EDT Exam CR Abdomen AP Ordering Physician [id number] STEFAN COBB Accession Number [id number] CPT4 Codes 41354 () Reason For Exam ileus, NG tube Report EXAM TYPE: CR Abdomen AP EXAM DATE AND TIME: 11/09/2019 10:19 AM EDT INDICATION: 64 years Female with ileus, enteric tube COMPARISON: The graft from yesterday TECHNIQUE: AP supine radiograph of the abdomen and pelvis was obtained. FINDINGS: An enteric tube terminates overlying the gastric fundus. Redemonstration of dilated gas-filled small bowel loops. Limited evaluation for free air or air-fluid levels on supine-only imaging. Bilateral ureteral stents are present extending through a urostomy. Pancreatic calcifications related to chronic pancreatitis. Degenerative changes are seen in the visualized spine. The visualized lung bases are unremarkable. IMPRESSION: Dilated small bowel, ileus versus obstruction. Enteric tube in place. Ureteral stents. Chronic pancreatitis. Report Dictated on Workstation: [id number] --- Final --- Dictated: 11/09/2019 10:33 am Dictating Physician: MD MILLARD NICHOLAS Signed Date and Time: 11/09/2019 10:35 am Signed by: MD MILLARD NICHOLAS Transcribed Date and Time: 11/09/2019 10:33 [place] Basic Metabolic Panelon 06- Anion gap [Moles/Vol] 13 mmol/L [place] Calcium [Mass/Vol] 10.2 mg/dL 8.4 - 10. 4 mg/dL [place] Chloride [Moles/Vol] 112 mmol/L High 98 - 10 7 mmol/L [place] CO2 [Moles/Vol] 23 mmol/L 22 - 30 mmol/L [place] Creatinine [Mass/Vol] 1.23 mg/dL 0.52 - 1.25 mg/dL [place] EGFR IF NonAfrican [place] 45.8 mL/min Abnormal >60 [place], [place] Comment on above: KDIGO guidelines pro vide the following GFR categories: Stage GFR(ml/min/1.73 m2) Terms G1 >=90 Normal or high G2 60-89 Mildly decreased* G3a 45-59 Mildly to moderately decreased G3b 30-44 Moderately to severely decreased G4 15-29 Severely decreased G5 <15 Kidney failure *Relative to young adult level. In the absence of evidence of kidney damage, neither GFR category G1 nor G2 fulfill the criteria for CKD. The CKD-EPI equation is validated in individuals 18 years of age and older. Currently the best equation for estimating glomerular filtration rate (GFR) from serum creatinine in children is the Bedside Celis equation. It is less accurate in patients with extremes of muscle mass, restriction of dietary protein, ingestion of creatine, extra-renal metabolism of creatinine, or treatment with medications that affect renal tubular creatinine secretion. GFR/1.73 sq M predicted among blacks MDRD (S/P/Bld) [Vol rate/Area] 53.1 mL/min/{1.73_m2} Abnormal >60 [place], [place] Glucose [Mass/Vol] 120 mg/dL High 70 - 100 mg/dL [place] Potassium [Moles/Vol] 5.0 mmol/L 3.5 - 5.1 mmol/L [place] Sodium [Moles/Vol] 147 mmol/L High 135 - 145 mmol/L [place], [place] Urea nitrogen [Mass/Vol] 86 mg/dL High 7 - 20 mg/dL [place] CBC Auto Differentialon 10-20 Erythrocyte distribution width (RBC) [Ratio] 18.5 % High 11.5 - 14.5 % [place] Hematocrit (Bld) [Volume fraction] 34.4 % Low 35 - 47 % [place] Hemoglobin (Bld) [Mass/Vol] 11.1 g/dL Low 11.7 - 16 g/dL [place] MCH (RBC) [Entitic mass] 31.2 pg 26 - 34 pg [place] MCHC (RBC) [Mass/Vol] 32.3 % 32 - 36 % [place] MCV (RBC) [Entitic vol] 96.8 fL 79 - 98 fL [place] Platelet mean volume (Bld) [Entitic vol] 7.9 fL 7.4 - 10.4 fL [place] Platelets (Bld) [#/Vol] 699 10*3/uL High 140 - 440 10*3/uL [place] RBC (Bld) [#/Vol] 3.55 10*6/uL Low 3.8 - 5.2 10*6/uL [place] WBC (Bld) [#/Vol] 28.7 10*3/uL High 3.6 - 10.7 10*3/uL [place] Test Performed by [facility], [address] [place] [address] [place], [place] Creatinine, Random Urineon 0 11-08-2019 Creatinine (U) [Mass/Vol] 60.2 mg/dL No Range [place], [place] Hepatic Function Panelon Albumin [Mass/Vol] 4.1 g/dL 3.5 - 5 g/dL [place] ALP [Catalytic activity/Vol] 305 U/L High 38 - 126 U/L [place] ALT [Catalytic activity/Vol] 55 U/L High 0 - 34 U/L [place] Comment on above: The ALT test is perf ormed by an updated assay method. Please note that the reference intervals have been changed and are now sex specific. AST [Catalytic activity/Vol] 61 U/L High 15 - 46 U/L [place] Bilirubin Ql (U) 3.8 mg/dL High 0.2 - 1.3 mg/dL [place] Bilirubin.direct [Mass/Vol] 1.0 mg/dL High 0 - 0.3 mg/dL [facility] [place] Protein [Mass/Vol] 7.7 g/dL 6.3 - 8.2 g/dL [facility] [place] Magnesiumon 11-08-2019 Magnesium [Mass/Vol] 2.8 mg/dL High 1.6 - 2 .3 mg/dL [facility] [place] Manual Differentialon 2019 Absolute Baso # 0.0 10*3/uL 0 - 0.2 10*3/uL [facility] [place] Absolute Eos # 0.0 10*3/uL 0 - 0.5 10*3/uL [facility] [place] Absolute Lymph # 2.9 10*3/uL 1.1 - 4.5 10*3/uL [facility] [place] Absolute Dale # 2.3 10*3/uL High 0.2 - 1.1 10*3/uL [facility] [place] Absolute Neut # 23.5 10*3/uL High 2.2 - 8.2 10*3/uL [facility] [place] Anisocytosis Ql (Bld) Slight [facility] Bands 4 % High 0 - 3 % [facility] [place] Basophils 0 % 0 - 2 % [facility] [place] Eosinophils 0 % Low 1 - 6 % [facility] [place] Lymphocytes 10 % Low 20 - 40 % [facility] [place] Macrocytosis Slight [facility] [place] Monocytes 8 % 2 - 10 % [facility] [place] Ovalocytes Slight [facility] [place] Poikilocytes Slight [facility] [place] Polychromasia Slight [facility] [place] RBC morphology finding Nom (Bld) ABNORMAL [facility] [place] Seg Neutrophils 78 % 40 - 80 % [facility] [place] TOTAL CELLS COUNTED 100 [facility] [place] Otheron 11-08-2019 Test Performed by [facility], [address] [place] [address] [facility] [place] Test Performed by [address] [address] [facility] [place] Interpretation and review of laboratory results Abnormal [facility] [place] Test Performed by [facility], [address] [place] [address], [place] [address] [facility], [place] Phosphoruson 11-08-2019 Phosphate [Mass/Vol] 6.8 mg/dL High 2.5 - 4 .5 mg/dL [facility], [place] Sodium, Urine, Randomon 10-20 Sodium (U) [Moles/Vol] 36 mmol/L No Range Me [facility], [place] TYPE AND SCREENon 11-08-2019 Sodium [Moles/Vol] O [facility], [place] Sodium [Moles/Vol] Positive [facility], [place] Sodium [Moles/Vol] Negative [facility], [place] XR ABDOMEN (KUB) (SINGLE AP VIEW)on 11-08-2019 Patient Name: LINDA KIM ---Diagnostic Radiology--- Exam Date/Time 11/08/2019 10:40:30 EDT Exam CR Abdomen AP Ordering Physician [id number] STEFAN COBB Accession Number [id number] CPT4 Codes 34281 () Reason For Exam ileus, NG tube Report Clinical Information: Ileus. Follow-up examination. Abdomen, single view, KUB: A single AP supine view of the abdomen is compared to the examination of two days ago. There is no change in the position of the endogastric tube. There are bilateral ureteral stents and a right ileostomy. There continue be multiple dilated gas containing loops of large and small bowel throughout the abdomen most persistent ileus although a distal small bowel obstruction is not excluded. There is no obvious intraperitoneal gas on limited evaluation. No other significant abnormality or interval change. Impression: Persistent diffusely dilated loops of gas containing small bowel compatible with persistent ileus or distal small bowel obstruction without significant interval change. Report Dictated on Workstation: [id number] --- Final --- Dictated: 11/08/2019 12:41 pm Dictating Physician: MD PALMER HARLAN Signed Date and Time: 11/08/2019 12:57 pm Signed by: MD PALMER HARLAN Transcribed Date and Time: 11/08/2019 12:41 [place], [place] [facility], [facility] Incoming Radiology Results From [facility] - 11/08/2019 12:58 PM EDT Patient Name: LINDA KIM ---Diagnostic Radiology--- Exam Date/Time 11/08/2019 10:40:30 EDT Exam CR Abdomen AP Ordering Physician [id number] STEFAN COBB Accession Number [id number] CPT4 Codes 97195 () Reason For Exam ileus, NG tube Report Clinical Information: Ileus. Follow-up examination. Abdomen, single view, KUB: A single AP supine view of the abdomen is compared to the examination of two days ago. There is no change in the position of the endogastric tube. There are bilateral ureteral stents and a right ileostomy. There continue be multiple dilated gas containing loops of large and small bowel throughout the abdomen most persistent ileus although a distal small bowel obstruction is not excluded. There is no obvious intraperitoneal gas on limited evaluation. No other significant abnormality or interval change. Impression: Persistent diffusely dilated loops of gas containing small bowel compatible with persistent ileus or distal small bowel obstruction without significant interval change. Report Dictated on Workstation: [id number] --- Final --- Dictated: 11/08/2019 12:41 pm Dictating Physician: MD PALMER HARLAN Signed Date and Time: 11/08/2019 12:57 pm Signed by: MD PALMER HARLAN Transcribed Date and Time: 11/08/2019 12:41 [place] Basic Metabolic Panelon 10-20 Anion gap [Moles/Vol] 10 mmol/L [place] Calcium [Mass/Vol] 9.5 mg/dL 8.4 - 10. 4 mg/dL [place] Chloride [Moles/Vol] 115 mmol/L High 98 - 10 7 mmol/L [place] CO2 [Moles/Vol] 22 mmol/L 22 - 30 mmol/L [place] Creatinine [Mass/Vol] 0.65 mg/dL 0.52 - 1.25 mg/dL [place] EGFR IF NonAfrican [place] >90.0 >60 mL/min [place] Comment on above: KDIGO guidelines pro vide the following GFR categories: Stage GFR(ml/min/1.73 m2) Terms G1 >=90 Normal or high G2 60-89 Mildly decreased* G3a 45-59 Mildly to moderately decreased G3b 30-44 Moderately to severely decreased G4 15-29 Severely decreased G5 <15 Kidney failure *Relative to young adult level. In the absence of evidence of kidney damage, neither GFR category G1 nor G2 fulfill the criteria for CKD. The CKD-EPI equation is validated in individuals 18 years of age and older. Currently the best equation for estimating glomerular filtration rate (GFR) from serum creatinine in children is the Bedside Celis equation. It is less accurate in patients with extremes of muscle mass, restriction of dietary protein, ingestion of creatine, extra-renal metabolism of creatinine, or treatment with medications that affect renal tubular creatinine secretion. GFR/1.73 sq M predicted among blacks MDRD (S/P/Bld) [Vol rate/Area] mL/min/{1.73_m2} >60 mL/min [place] Glucose [Mass/Vol] 117 mg/dL High 70 - 100 mg/dL [place] Potassium [Moles/Vol] 4.2 mmol/L 3.5 - 5.1 mmol/L [place] Sodium [Moles/Vol] 147 mmol/L High 135 - 145 mmol/L [place] Urea nitrogen [Mass/Vol] 51 mg/dL High 7 - 20 mg/dL [place] CBC Auto Differentialon 10-20 Erythrocyte distribution width (RBC) [Ratio] 18.8 % High 11.5 - 14.5 % [place] Hematocrit (Bld) [Volume fraction] 29.7 % Low 35 - 47 % [place] Hemoglobin (Bld) [Mass/Vol] 9.3 g/dL Low 11.7 - 16 g/dL [place] Interpretation and review of laboratory results Abnormal [place] MCH (RBC) [Entitic mass] 30.6 pg 26 - 34 pg [place] MCHC (RBC) [Mass/Vol] 31.3 % Low 32 - 36 % [place] MCV (RBC) [Entitic vol] 97.7 fL 79 - 98 fL [place] Platelet mean volume (Bld) [Entitic vol] 7.8 fL 7.4 - 10.4 fL [place] Platelets (Bld) [#/Vol] 596 10*3/uL High 140 - 440 10*3/uL [place] RBC (Bld) [#/Vol] 3.04 10*6/uL Low 3.8 - 5.2 10*6/uL [place] WBC (Bld) [#/Vol] 26.5 10*3/uL High 3.6 - 10.7 10*3/uL [place] Test Performed by [facility], [address] [place] [id number] [place] [address] Calcium, Ionizedon 0 Ionized Ca 4.80 mg/dL 4.3 - 5.2 mg/dL [place] pH (Bld) 7.34 [pH] [place] FL SMALL BOWELon 11-07-2019 [facility], [facility] Incoming Radiology Results From [facility] - 11/08/2019 12:06 PM EDT Patient Name: LINDA KIM ---Fluoroscopy--- Exam Date/Time 11/08/2019 12:05:59 EDT Exam RF Small Bowel w/ Serial Films Ordering Physician Cat KOEHLER, VESTA Accession Number [id number] CTP4 Codes 54559 () Reason For Exam SBO Report SMALL BOWEL SERIES: CLINICAL INDICATION: Abdominal pain and distention. TECHNIQUE: Small bowel series was performed following instillation of Gastrografin contrast into the nasogastric tube. Fluoroscopy was not performed. Imaging was performed at the 12 hours following instillation of contrast. COMPARISON: Abdomen from one day prior and CT from two days prior. FINDINGS: Lot Porter supine radiograph of the abdomen demonstrates a gaseous distention of mostly small bowel loops. There is some gas within nondistended large bowel. Bilateral ureteral stents are noted extending into the right lower quadrant into the region of an ostomy. Multiple calcific foci are noted in the right mid abdomen in the region of the pancreas. The osseous structures are unremarkable. There is an initial opacification of the stomach and duodenum, which demonstrates moderate dilatation. At six hours following instillation, there is some contrast within dilated jejunal loops as well. There is no apparent fold thickening in regions of the opacified bowel. At nine hours and 12 hours, there is less visualization of contrast, related to dilution of the water-soluble contrast. Distal small bowel is not adequately identified. There is no identifiable transit into the large bowel at 12 hours. IMPRESSION: Although evaluation is limited due to the water soluble nature of the contrast and dilution, there are persistent dilated small bowel loops at 12 hours. This is most compatible with distal small bowel obstruction. Report Dictated on Workstation: [id number] --- Final --- Dictated: 11/07/2019 11:30 pm Dictating Physician: MD WEINSTEIN JEFFREY Signed Date and Time: 11/07/2019 11:44 pm Signed by: MD WEINSTEIN JEFFREY Transcribed Date and Time: 11/07/2019 11:30 [place], [place] Patient Name: LINDA KIM ---Fluoroscopy--- Exam Date/Time 11/08/2019 12:05:59 EDT Exam RF Small Bowel w/ Serial Films Ordering Physician Cat KOEHLER, [place] Accession Number [id number] CTP4 Codes 75779 () Reason For Exam SBO Report SMALL BOWEL SERIES: CLINICAL INDICATION: Abdominal pain and distention. TECHNIQUE: Small bowel series was performed following instillation of Gastrografin contrast into the nasogastric tube. Fluoroscopy was not performed. Imaging was performed at the 12 hours following instillation of contrast. COMPARISON: Abdomen from one day prior and CT from two days prior. FINDINGS: Lot Porter supine radiograph of the abdomen demonstrates a gaseous distention of mostly small bowel loops. There is some gas within nondistended large bowel. Bilateral ureteral stents are noted extending into the right lower quadrant into the region of an ostomy. Multiple calcific foci are noted in the right mid abdomen in the region of the pancreas. The osseous structures are unremarkable. There is an initial opacification of the stomach and duodenum, which demonstrates moderate dilatation. At six hours following instillation, there is some contrast within dilated jejunal loops as well. There is no apparent fold thickening in regions of the opacified bowel. At nine hours and 12 hours, there is less visualization of contrast, related to dilution of the water-soluble contrast. Distal small bowel is not adequately identified. There is no identifiable transit into the large bowel at 12 hours. IMPRESSION: Although evaluation is limited due to the water soluble nature of the contrast and dilution, there are persistent dilated small bowel loops at 12 hours. This is most compatible with distal small bowel obstruction. Report Dictated on Workstation: [id number] --- Final --- Dictated: 11/07/2019 11:30 pm Dictating Physician: MD WEINSTEIN JEFFREY Signed Date and Time: 11/07/2019 11:44 pm Signed by: MD WEINSTEIN JEFFREY Transcribed Date and Time: 11/07/2019 11:30 [place], [place] Hepatic Function Panelon Albumin [Mass/Vol] 3.7 g/dL 3.5 - 5 g/dL [place] ALP [Catalytic activity/Vol] 243 U/L High 38 - 126 U/L [place] ALT [Catalytic activity/Vol] 28 U/L 0 - 34 U/L [place] Comment on above: The ALT test is perf ormed by an updated assay method. Please note that the reference intervals have been changed and are now sex specific. AST [Catalytic activity/Vol] 38 U/L 15 - 46 U/L [place] Bilirubin Ql (U) 3.0 mg/dL High 0.2 - 1.3 mg/dL [place] Bilirubin.direct [Mass/Vol] 1.0 mg/dL High 0 - 0.3 mg/dL [place] Protein [Mass/Vol] 6.8 g/dL 6.3 - 8.2 g/dL [place] Magnesiumon 11-07-2019 Magnesium [Mass/Vol] 2.5 mg/dL High 1.6 - 2 .3 mg/dL [place] Manual Differentialon 2019 Absolute Baso # 0.0 10*3/uL 0 - 0.2 10*3/uL [place] Absolute Eos # 0.5 10*3/uL 0 - 0.5 10*3/uL [place] Absolute Lymph # 0.5 10*3/uL Low 1.1 - 4.5 10*3/uL [place] Absolute Dale # 1.1 10*3/uL 0.2 - 1.1 10*3/uL [place] Absolute Neut # 23.6 10*3/uL High 2.2 - 8.2 10*3/uL [facility] Bands 2 % 0 - 3 % [facility] Basophils 0 % 0 - 2 % [facility] Eosinophils 2 % 1 - 6 % [place] Interpretation and review of laboratory results Abnormal [place] Lymphocytes 2 % Low 20 - 40 % [place] Metamyelocytes 3 % Abnormal <1 [place] Monocytes 4 % 2 - 10 % [place] RBC morphology finding Nom (Bld) See Prev [place] Seg Neutrophils 87 % High 40 - 80 % [place] TOTAL CELLS COUNTED 100 [place] Otheron 11-07-2019 Test Performed by [address] [address] [place] Interpretation and review of laboratory results Abnormal [place] Test Performed by [address] [address] [place] Phosphoruson 11-07-2019 Phosphate [Mass/Vol] 5.6 mg/dL High 2.5 - 4 .5 mg/dL [place] Basic Metabolic Panelon 10-20 Anion gap [Moles/Vol] 9 mmol/L [place] Calcium [Mass/Vol] 9.5 mg/dL 8.4 - 10. 4 mg/dL [place] Chloride [Moles/Vol] 115 mmol/L High 98 - 10 7 mmol/L [place] CO2 [Moles/Vol] 22 mmol/L 22 - 30 mmol/L [place] Creatinine [Mass/Vol] 0.49 mg/dL Low 0.52 - 1.25 mg/dL [place] EGFR IF NonAfrican [place]bourger >90.0 >60 mL/min [place] Comment on above: KDIGO guidelines pro vide the following GFR categories: Stage GFR(ml/min/1.73 m2) Terms G1 >=90 Normal or high G2 60-89 Mildly decreased* G3a 45-59 Mildly to moderately decreased G3b 30-44 Moderately to severely decreased G4 15-29 Severely decreased G5 <15 Kidney failure *Relative to young adult level. In the absence of evidence of kidney damage, neither GFR category G1 nor G2 fulfill the criteria for CKD. The CKD-EPI equation is validated in individuals 18 years of age and older. Currently the best equation for estimating glomerular filtration rate (GFR) from serum creatinine in children is the Bedside Celis equation. It is less accurate in patients with extremes of muscle mass, restriction of dietary protein, ingestion of creatine, extra-renal metabolism of creatinine, or treatment with medications that affect renal tubular creatinine secretion. GFR/1.73 sq M predicted among blacks MDRD (S/P/Bld) [Vol rate/Area] mL/min/{1.73_m2} >60 mL/min [place] Glucose [Mass/Vol] 125 mg/dL High 70 - 100 mg/dL [place] Potassium [Moles/Vol] 4.3 mmol/L 3.5 - 5.1 mmol/L [place] Sodium [Moles/Vol] 146 mmol/L High 135 - 145 mmol/L [place] Urea nitrogen [Mass/Vol] 47 mg/dL High 7 - 20 mg/dL [place] CBC Auto Differentialon 10-20 Erythrocyte distribution width (RBC) [Ratio] 18.8 % High 11.5 - 14.5 % [place] Hematocrit (Bld) [Volume fraction] 29.5 % Low 35 - 47 % [place] Hemoglobin (Bld) [Mass/Vol] 9.5 g/dL Low 11.7 - 16 g/dL [place] Interpretation and review of laboratory results Abnormal [place] MCH (RBC) [Entitic mass] 31.0 pg 26 - 34 pg [place] MCHC (RBC) [Mass/Vol] 32.2 % 32 - 36 % [place] MCV (RBC) [Entitic vol] 96.5 fL 79 - 98 fL [place] Platelet mean volume (Bld) [Entitic vol] 7.4 fL 7.4 - 10.4 fL [place] Platelets (Bld) [#/Vol] 592 10*3/uL High 140 - 440 10*3/uL [place] RBC (Bld) [#/Vol] 3.06 10*6/uL Low 3.8 - 5.2 10*6/uL [place] WBC (Bld) [#/Vol] 26.2 10*3/uL High 3.6 - 10.7 10*3/uL [place] Test Performed by [facility], [address] [place] [id number] [place], [place] Hepatic Function Panelon Albumin [Mass/Vol] 3.7 g/dL 3.5 - 5 g/dL [place] ALP [Catalytic activity/Vol] 224 U/L High 38 - 126 U/L [place] ALT [Catalytic activity/Vol] 22 U/L 0 - 34 U/L [place] Comment on above: The ALT test is perf ormed by an updated assay method. Please note that the reference intervals have been changed and are now sex specific. AST [Catalytic activity/Vol] 32 U/L 15 - 46 U/L [place] Bilirubin Ql (U) 1.8 mg/dL High 0.2 - 1.3 mg/dL [place] Bilirubin.direct [Mass/Vol] 0.1 mg/dL 0 - 0.3 mg/dL [place] Protein [Mass/Vol] 6.9 g/dL 6.3 - 8.2 g/dL [place] Magnesiumon 11-06-2019 Magnesium [Mass/Vol] 2.4 mg/dL High 1.6 - 2 .3 mg/dL [place] Manual Differentialon 2019 Absolute Baso # 0.5 10*3/uL High 0 - 0.2 10*3/uL [place] Absolute Eos # 0.0 10*3/uL 0 - 0.5 10*3/uL [place] Absolute Lymph # 0.5 10*3/uL Low 1.1 - 4.5 10*3/uL [facility] [place], [place] Absolute Dale # 0.5 10*3/uL 0.2 - 1.1 10*3/uL [facility] [place], [place] Absolute Neut # 23.3 10*3/uL High 2.2 - 8.2 10*3/uL [facility], [place] Anisocytosis Ql (Bld) Slight [facility] [place] Bands 2 % 0 - 3 % [facility] [place] Basophils 2 % 0 - 2 % [facility] [place] Eosinophils 0 % Low 1 - 6 % [facility] [place] Interpretation and review of laboratory results Abnormal [facility], [place] Lymphocytes 2 % Low 20 - 40 % [facility] [place] Macrocytosis Slight [facility] [place] Metamyelocytes 2 % Abnormal <1 [facility] [place] Microcytosis Slight [facility] [place] Monocytes 2 % 2 - 10 % [facility] [place] Myelocytes 3 % Abnormal <1 [facility] Ovalocytes Slight [facility] [place] Poikilocytes Slight [facility] [place] Polychromasia Slight [facility] [place] RBC morphology finding Nom (Bld) ABNORMAL [facility] Seg Neutrophils 87 % High 40 - 80 % [facility] TOTAL CELLS COUNTED 100 [place] Test Performed by [facility], [address] [place] [id number] [facility] Otheron 11-06-2019 Interpretation and review of laboratory results Abnormal [place] Test Performed by [facility], [address] [place] [address] [place] Phosphoruson 11-06-2019 Phosphate [Mass/Vol] 4.5 mg/dL 2.5 - 4 .5 mg/dL [place] Procalcitoninon 11-06-2019 Procalcitonin <0.10 <0.10 ng/mL [place] Sodium [Moles/Vol] See Below [facility] Comment on above: PCT <0.50 = Low risk of severe sepsis and/or septic shock. PCT >2.00 = High risk of severe sepsis and/or septic shock. Test Performed by [facility], [address] [place] [id number] [place] [address] XR ABDOMEN (KUB) (SINGLE AP VIEW)on 11-06-2019 [facility] Incoming Radiology Results From [facility] - 11/06/2019 6:16 PM EDT Patient Name: LINDA KIM ---Diagnostic Radiology--- Exam Date/Time 11/06/2019 18:15:55 EDT Exam CR Abdomen AP Ordering Physician Cat KOEHLER MELISSA Accession Number [id number] CPT4 Codes 64107 () Reason For Exam NG coiled in stomach Report KUB 11/06/2019 5:23 PM CLINICAL INDICATION: NG coiled in stomach COMPARISON: 11/06/2019 10:06 AM Supine image of the abdomen was obtained. Oral gastric tube has been repositioned without coiling noted. Tip projects in the region of the lateral gastric fundus. Bilateral ureteral stents are noted which extend through an ileal conduit through the external ostomy. Pelvic surgical drain appears unchanged in position. Dilated gas-filled small bowel is unchanged from the earlier exam. Colon contains patchy air but is nondilated. Pancreatic calcifications are noted primarily in the region of the pancreatic head and consistent with chronic pancreatitis. No acute osseous changes are noted in the interval. IMPRESSION: NG tube has uncoiled with the tip projecting in the lateral fundus region Continued gaseous distention of small bowel loops which could be related to distal small bowel obstruction Report Dictated on --- Final --- Dictated: 11/06/2019 6:00 pm Dictating Physician: MD MENDOZA DIANE Signed Date and Time: 11/06/2019 6:04 pm Signed by: MD MENDOZA DIANE Transcribed Date and Time: 11/06/2019 6:00 [place] Patient Name: LINDA KIM ---Diagnostic Radiology--- Exam Date/Time 11/06/2019 18:15:55 EDT Exam CR Abdomen AP Ordering Physician Cat KOEHLER MELISSA Accession Number [id number] CPT4 Codes 56258 () Reason For Exam NG coiled in stomach Report KUB 11/06/2019 5:23 PM CLINICAL INDICATION: NG coiled in stomach COMPARISON: 11/06/2019 10:06 AM Supine image of the abdomen was obtained. Oral gastric tube has been repositioned without coiling noted. Tip projects in the region of the lateral gastric fundus. Bilateral ureteral stents are noted which extend through an ileal conduit through the external ostomy. Pelvic surgical drain appears unchanged in position. Dilated gas-filled small bowel is unchanged from the earlier exam. Colon contains patchy air but is nondilated. Pancreatic calcifications are noted primarily in the region of the pancreatic head and consistent with chronic pancreatitis. No acute osseous changes are noted in the interval. IMPRESSION: NG tube has uncoiled with the tip projecting in the lateral fundus region Continued gaseous distention of small bowel loops which could be related to distal small bowel obstruction Report Dictated on --- Final --- Dictated: 11/06/2019 6:00 pm Dictating Physician: MD MENDOZA DIANE Signed Date and Time: 11/06/2019 6:04 pm Signed by: MD MENDOZA DIANE Transcribed Date and Time: 11/06/2019 6:00 [place] Patient Name: LINDA KIM ---Diagnostic Radiology--- Exam Date/Time 11/06/2019 10:42:46 EDT Exam CR Abdomen AP Ordering Physician Cat KOEHLER MELISSA Accession Number [id number] CPT4 Codes 52327 () Reason For Exam s/p OG tube placement confirmation Report Abdomen one view HISTORY: NG tube repositioned COMPARISON: X-ray from earlier today The NG tube has been retracted so that the distal aspect is curled upon itself with tip in the fundus of the stomach. Again seen are air-filled loops of dilated small bowel which are suspicious for small bowel obstruction. Bilateral ureteral stents are noted. Report Dictated on Workstation: [id number] --- Final --- Dictated: 11/06/2019 11:34 am Dictating Physician: MD HUYEN, [facility] Signed Date and Time: 11/06/2019 11:35 am Signed by: MD MATSON MALAY Transcribed Date and Time: 11/06/2019 11:34 [facility], [facility] Incoming Radiology Results From [facility] - 11/06/2019 11:36 AM EDT Patient Name: LINDA KIM ---Diagnostic Radiology--- Exam Date/Time 11/06/2019 10:42:46 EDT Exam CR Abdomen AP Ordering Physician Cat KOEHLER MELISSA Accession Number [id number] CPT4 Codes 87831 () Reason For Exam s/p OG tube placement confirmation Report Abdomen one view HISTORY: NG tube repositioned COMPARISON: X-ray from earlier today The NG tube has been retracted so that the distal aspect is curled upon itself with tip in the fundus of the stomach. Again seen are air-filled loops of dilated small bowel which are suspicious for small bowel obstruction. Bilateral ureteral stents are noted. Report Dictated on Workstation: [id number] --- Final --- Dictated: 11/06/2019 11:34 am Dictating Physician: MD MATSON MALAY Signed Date and Time: 11/06/2019 11:35 am Signed by: MD MATSON MALAY Transcribed Date and Time: 11/06/2019 11:34 [facility] [place] [facility], [facility] Incoming Radiology Results From [facility] - 11/06/2019 11:35 AM EDT Patient Name: LINDA KIM ---Diagnostic Radiology--- Exam Date/Time 11/06/2019 10:41:52 EDT Exam CR Abdomen AP Ordering Physician Cat KOEHLER MELISSA Accession Number [id number] CPT4 Codes 38857 () Reason For Exam NGT reposition Report Abdomen one view HISTORY: NG tube repositioned COMPARISON: X-ray from earlier today The NG tube has been retracted so that the distal aspect is curled upon itself with tip near the GE junction. Again seen is the bowel gas pattern which is suspicious for a small bowel obstruction. Bilateral ureteral stents are noted. Report Dictated on Workstation: [email or web address] --- Final --- Dictated: 11/06/2019 11:33 am Dictating Physician: MD MATSON MALAY Signed Date and Time: 11/06/2019 11:34 am Signed by: MD MATSON MALAY Transcribed Date and Time: 11/06/2019 11:33 [place] Patient Name: LINDA KIM ---Diagnostic Radiology--- Exam Date/Time 11/06/2019 10:41:52 EDT Exam CR Abdomen AP Ordering Physician Cat KOEHLER MELISSA Accession Number [id number] CPT4 Codes 16566 () Reason For Exam NGT reposition Report Abdomen one view HISTORY: NG tube repositioned COMPARISON: X-ray from earlier today The NG tube has been retracted so that the distal aspect is curled upon itself with tip near the GE junction. Again seen is the bowel gas pattern which is suspicious for a small bowel obstruction. Bilateral ureteral stents are noted. Report Dictated on Workstation: [id number] --- Final --- Dictated: 11/06/2019 11:33 am Dictating Physician: MD MATSON MALAY Signed Date and Time: 11/06/2019 11:34 am Signed by: MD MATSON MALAY Transcribed Date and Time: 11/06/2019 11:33 [place] [facility] Incoming Radiology Results From [facility] - 11/06/2019 10:20 AM EDT Patient Name: LINDA KIM ---Diagnostic Radiology--- Exam Date/Time 11/06/2019 07:51:40 EDT Exam CR Abdomen AP Ordering Physician STEFAN ESPINAL Accession Number [id number] CPT4 Codes 69984 () Reason For Exam ileus, NG tube Report Abdomen one view HISTORY: NG tube COMPARISON: 11/05/2019 Mild worsening of the air-filled loops of dilated small bowel. Small bowel obstruction is not excluded. An upright or decubitus view may be helpful. NG tube with tip in the distal stomach. Bilateral ureteral stents. IMPRESSION: Mild worsening of the air-filled loops of dilated small bowel. Small bowel obstruction is not excluded. An upright or decubitus view may be helpful. Report Dictated on Workstation: [id number] --- Final --- Dictated: 11/06/2019 10:17 am Dictating Physician: MD MATSON MALAY Signed Date and Time: 11/06/2019 10:19 am Signed by: MD MATSON MALAY Transcribed Date and Time: 11/06/2019 10:17 [place] Patient Name: LINDA KIM ---Diagnostic Radiology--- Exam Date/Time 11/06/2019 07:51:40 EDT Exam CR Abdomen AP Ordering Physician [id number] STEFAN COBB Accession Number [id number] CPT4 Codes 94727 () Reason For Exam ileus, NG tube Report Abdomen one view HISTORY: NG tube COMPARISON: 11/05/2019 Mild worsening of the air-filled loops of dilated small bowel. Small bowel obstruction is not excluded. An upright or decubitus view may be helpful. NG tube with tip in the distal stomach. Bilateral ureteral stents. IMPRESSION: Mild worsening of the air-filled loops of dilated small bowel. Small bowel obstruction is not excluded. An upright or decubitus view may be helpful. Report Dictated on Workstation: [email or web address] --- Final --- Dictated: 11/06/2019 10:17 am Dictating Physician: MD MATSON MALAY Signed Date and Time: 11/06/2019 10:19 am Signed by: MD MATSON MALAY Transcribed Date and Time: 11/06/2019 10:17 [place] Basic Metabolic Panelon - Anion gap [Moles/Vol] 9 mmol/L [place] Calcium [Mass/Vol] 9.3 mg/dL 8.4 - 10. 4 mg/dL [place] Chloride [Moles/Vol] 112 mmol/L High 98 - 10 7 mmol/L [place] CO2 [Moles/Vol] 20 mmol/L Low 22 - 30 mmol/L [place] Creatinine [Mass/Vol] 0.52 mg/dL 0.52 - 1.25 mg/dL [place] EGFR IF NonAfrican [place] >90.0 >60 mL/min [place] Comment on above: KDIGO guidelines pro vide the following GFR categories: Stage GFR(ml/min/1.73 m2) Terms G1 >=90 Normal or high G2 60-89 Mildly decreased* G3a 45-59 Mildly to moderately decreased G3b 30-44 Moderately to severely decreased G4 15-29 Severely decreased G5 <15 Kidney failure *Relative to young adult level. In the absence of evidence of kidney damage, neither GFR category G1 nor G2 fulfill the criteria for CKD. The CKD-EPI equation is validated in individuals 18 years of age and older. Currently the best equation for estimating glomerular filtration rate (GFR) from serum creatinine in children is the Bedside Celis equation. It is less accurate in patients with extremes of muscle mass, restriction of dietary protein, ingestion of creatine, extra-renal metabolism of creatinine, or treatment with medications that affect renal tubular creatinine secretion. GFR/1.73 sq M predicted among blacks MDRD (S/P/Bld) [Vol rate/Area] mL/min/{1.73_m2} >60 mL/min [place] Glucose [Mass/Vol] 128 mg/dL High 70 - 100 mg/dL [place] Interpretation and review of laboratory results Abnormal [place] Potassium [Moles/Vol] 4.0 mmol/L 3.5 - 5.1 mmol/L [place] Sodium [Moles/Vol] 142 mmol/L 135 - 145 mmol/L [place] Urea nitrogen [Mass/Vol] 45 mg/dL High 7 - 20 mg/dL [place] CBC Auto Differentialon 10-20 Erythrocyte distribution width (RBC) [Ratio] 19.5 % High 11.5 - 14.5 % [place] Hematocrit (Bld) [Volume fraction] 28.3 % Low 35 - 47 % [place] Hemoglobin (Bld) [Mass/Vol] 9.1 g/dL Low 11.7 - 16 g/dL [place] Interpretation and review of laboratory results Abnormal [place] MCH (RBC) [Entitic mass] 31.3 pg 26 - 34 pg [place] MCHC (RBC) [Mass/Vol] 32.2 % 32 - 36 % [place] MCV (RBC) [Entitic vol] 97.2 fL 79 - 98 fL [place] Platelet mean volume (Bld) [Entitic vol] 7.4 fL 7.4 - 10.4 fL [place] Platelets (Bld) [#/Vol] 504 10*3/uL High 140 - 440 10*3/uL [place] RBC (Bld) [#/Vol] 2.92 10*6/uL Low 3.8 - 5.2 10*6/uL [place] WBC (Bld) [#/Vol] 26.0 10*3/uL High 3.6 - 10.7 10*3/uL [place] Test Performed by [facility], [address] [place] [id number] [place] [address] CT Abdomen Pelvis W Contrast on 11-05-2019 Patient Name: LINDA KIM ---CT--- Exam Date/Time 11/05/2019 12:31:[address] Abdomen/Pelvis w/ IV Contrast (IV Onl Ordering Physician WALKER BREWER Accession Number [id number] CPT4 Codes 60472 (CT Abdomen/Pelvis w/ IV Contrast (IV Onl), Q9967 (CT ISOVUE [id number]/[id number]& [id number]) Reason For Exam concern for SBO Report CT abdomen and pelvis with contrast HISTORY: Concern for small bowel obstruction Protocol: 3 mm axial images with oral and intravenous contrast COMPARISON: 10/30/2019 Emphysematous changes in the lungs. Right posterior lung base infiltrate. The liver, gallbladder, spleen, pancreas, right adrenal, and kidneys are normal. 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 Bilateral ureteral stents. NG tube with tip in the stomach. The oral contrast given has only reached the proximal jejunum. Again seen are numerous dilated loops of proximal small bowel with differential air-fluid levels. The distal small bowel as a diminished caliber. The findings are suspicious for small bowel obstruction. Free fluid is present in the pelvis. Small amounts of air are present in the anterior and left lateral abdominal wall. Densely calcified aortoiliac atherosclerosis. 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 IMPRESSION: Emphysematous changes in the lungs. Right posterior lung base infiltrate. Again seen are numerous dilated loops of proximal small bowel with differential air-fluid levels. The distal small bowel has a diminished caliber. The findings are suspicious for small bowel obstruction. Free fluid is present in the pelvis. Small amounts of air are present in the anterior and left lateral abdominal wall. 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 Report Dictated on --- Final --- Dictated: 11/05/2019 3:08 pm Dictating Physician: MD MATSON MALAY Signed Date and Time: 11/05/2019 3:21 pm Signed by: MD MATSON MALAY Transcribed Date and Time: 11/05/2019 3:08 [place] [facility] Incoming Radiology Results From [facility] - 11/05/2019 3:22 PM EDT Patient Name: LINDA KIM ---CT--- Exam Date/Time 11/05/2019 12:31:[address] Abdomen/Pelvis w/ IV Contrast (IV Onl Ordering Physician [id number] ROD Accession Number [id number] CPT4 Codes 54147 (CT Abdomen/Pelvis w/ IV Contrast (IV Onl), Q9967 (CT ISOVUE 370MG/[id number]&ML& 1) Reason For Exam concern for SBO Report CT abdomen and pelvis with contrast HISTORY: Concern for small bowel obstruction Protocol: 3 mm axial images with oral and intravenous contrast COMPARISON: 10/30/2019 Emphysematous changes in the lungs. Right posterior lung base infiltrate. The liver, gallbladder, spleen, pancreas, right adrenal, and kidneys are normal. 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 Bilateral ureteral stents. NG tube with tip in the stomach. The oral contrast given has only reached the proximal jejunum. Again seen are numerous dilated loops of proximal small bowel with differential air-fluid levels. The distal small bowel as a diminished caliber. The findings are suspicious for small bowel obstruction. Free fluid is present in the pelvis. Small amounts of air are present in the anterior and left lateral abdominal wall. Densely calcified aortoiliac atherosclerosis. 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 IMPRESSION: Emphysematous changes in the lungs. Right posterior lung base infiltrate. Again seen are numerous dilated loops of proximal small bowel with differential air-fluid levels. The distal small bowel has a diminished caliber. The findings are suspicious for small bowel obstruction. Free fluid is present in the pelvis. Small amounts of air are present in the anterior and left lateral abdominal wall. 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 Report Dictated on --- Final --- Dictated: 11/05/2019 3:08 pm Dictating Physician: MD MATSON MALAY Signed Date and Time: 11/05/2019 3:21 pm Signed by: MD MATSON MALAY Transcribed Date and Time: 11/05/2019 3:08 [place] Magnesiumon 11-05-2019 Magnesium [Mass/Vol] 2.3 mg/dL 1.6 - 2 .3 mg/dL [place] Manual Differentialon 2019 Absolute Baso # 0.0 10*3/uL 0 - 0.2 10*3/uL [place] Absolute Eos # 0.5 10*3/uL 0 - 0.5 10*3/uL [place] Absolute Lymph # 1.6 10*3/uL 1.1 - 4.5 10*3/uL [place] Absolute Dale # 1.0 10*3/uL 0.2 - 1.1 10*3/uL [place] Absolute Neut # 22.9 10*3/uL High 2.2 - 8.2 10*3/uL [facility] [place] Bands 6 % High 0 - 3 % [facility] [place] Basophils 0 % 0 - 2 % [facility] Eosinophils 2 % 1 - 6 % [facility] Interpretation and review of laboratory results Abnormal [place] Lymphocytes 6 % Low 20 - 40 % [facility] Monocytes 4 % 2 - 10 % [facility] RBC morphology finding Nom (Bld) See Prev [facility] [place] Seg Neutrophils 82 % High 40 - 80 % [place] TOTAL CELLS COUNTED 100 [place] Test Performed by [facility], [address] [place] [address] [facility] Otheron 11-05-2019 Test Performed by [facility], [address] [place] [address] [facility] Phosphoruson 11-05-2019 Phosphate [Mass/Vol] 3.8 mg/dL 2.5 - 4 .5 mg/dL [place] XR ABDOMEN (KUB) (SINGLE AP VIEW)on 11-05-2019 [facility] Incoming Radiology [facility] - 11/05/2019 9:16 AM EDT Patient Name: LINDA KIM ---Diagnostic Radiology--- Exam Date/Time 11/05/2019 07:08:25 EDT Exam CR Abdomen AP Ordering Physician [id number] STEFAN COBB Accession Number [id number] CPT4 Codes 21907 () Reason For Exam ileus, NG tube Report KUB CLINICAL INDICATION: Ileus. Check NG tube position. COMPARISON: 11/04/2019 Supine images of the abdomen were obtained. Oral gastric tube tip projects in the region of the distal stomach. Bilateral ureteral stents are noted which extends through the patient's ileal conduit. There is a tube in the shape contour in the pelvis, most likely a surgical drain appears unchanged in position. There is diffuse small bowel gaseous dilatation which is slightly improved compared to the prior study and is consistent with a postoperative ileus. No gross free air is evident. No acute interval osseous changes are identified. Multiple punctate calcifications at mid abdomen are probably pancreatic. IMPRESSION: Slight decrease in gaseous distention of the small bowel with continued ileus Oral gastric tube tip extends into the distal stomach Bilateral ureteral stents and pelvic surgical drain appear unchanged Report Dictated on --- Final --- Dictated: 11/05/2019 9:12 am Dictating Physician: MD MENDOZA DIANE Signed Date and Time: 11/05/2019 9:15 am Signed by: MD MENDOZA DIANE Transcribed Date and Time: 11/05/2019 9:12 [place] Patient Name: LINDA KIM ---Diagnostic Radiology--- Exam Date/Time 11/05/2019 07:08:25 EDT Exam CR Abdomen AP Ordering Physician [id number] STEFAN COBB Accession Number [id number] CPT4 Codes 50857 () Reason For Exam ileus, NG tube Report KUB CLINICAL INDICATION: Ileus. Check NG tube position. COMPARISON: 11/04/2019 Supine images of the abdomen were obtained. Oral gastric tube tip projects in the region of the distal stomach. Bilateral ureteral stents are noted which extends through the patient's ileal conduit. There is a tube in the shape contour in the pelvis, most likely a surgical drain appears unchanged in position. There is diffuse small bowel gaseous dilatation which is slightly improved compared to the prior study and is consistent with a postoperative ileus. No gross free air is evident. No acute interval osseous changes are identified. Multiple punctate calcifications at mid abdomen are probably pancreatic. IMPRESSION: Slight decrease in gaseous distention of the small bowel with continued ileus Oral gastric tube tip extends into the distal stomach Bilateral ureteral stents and pelvic surgical drain appear unchanged Report Dictated on --- Final --- Dictated: 11/05/2019 9:12 am Dictating Physician: MD MENDOZA DIANE Signed Date and Time: 11/05/2019 9:15 am Signed by: MD MENDOZA DIANE Transcribed Date and Time: 11/05/2019 9:12 [place] XR CHEST PORTABLEon 11-05-19 20 [facility], [facility] Incoming Radiology Results From [facility] - 11/05/2019 9:14 AM EDT Patient Name: LINDA KIM ---Diagnostic Radiology--- Exam Date/Time 11/05/2019 07:04:26 EDT Exam CR Chest Portable Ordering Physician DO DOWNS SENYO Accession Number [id number] CPT4 Codes 76397 () Reason For Exam progression of pleural effusion with hypoxia Report PORTABLE CHEST Clinical indication: progression of pleural effusion with hypoxia Comparison: 11/03/2019. Oral gastric tube tip projects in the region of the distal body of the mid. Right internal jugular port catheter tip projects about mid superior vena cava level. The cardiac silhouette is not enlarged. Aorta is atherosclerotic. Lungs are emphysematous with no acute infiltrates noted. There are no pleural effusions identified. IMPRESSION: No pleural effusions are identified currently Lungs appear emphysematous Report Dictated on --- Final --- Dictated: 11/05/2019 9:11 am Dictating Physician: MD MENDOZA DIANE Signed Date and Time: 11/05/2019 9:12 am Signed by: MD MENDOZA DIANE Transcribed Date and Time: 11/05/2019 9:11 [place] Patient Name: LINDA KIM ---Diagnostic Radiology--- Exam Date/Time 11/05/2019 07:04:26 EDT Exam CR Chest Portable Ordering Physician DO DOWNS SENYO Accession Number [id number] CPT4 Codes 31678 () Reason For Exam progression of pleural effusion with hypoxia Report PORTABLE CHEST Clinical indication: progression of pleural effusion with hypoxia Comparison: 11/03/2019. Oral gastric tube tip projects in the region of the distal body of the mid. Right internal jugular port catheter tip projects about mid superior vena cava level. The cardiac silhouette is not enlarged. Aorta is atherosclerotic. Lungs are emphysematous with no acute infiltrates noted. There are no pleural effusions identified. IMPRESSION: No pleural effusions are identified currently Lungs appear emphysematous Report Dictated on --- Final --- Dictated: 11/05/2019 9:11 am Dictating Physician: MD MENDOZA DIANE Signed Date and Time: 11/05/2019 9:12 am Signed by: MD MENDOZA DIANE Transcribed Date and Time: 11/05/2019 9:11 [place] Basic Metabolic Panelon 10-20 Anion gap [Moles/Vol] 8 mmol/L [place] Calcium [Mass/Vol] 9.1 mg/dL 8.4 - 10. 4 mg/dL [place] Chloride [Moles/Vol] 107 mmol/L 98 - 10 7 mmol/L [place] CO2 [Moles/Vol] 23 mmol/L 22 - 30 mmol/L [place] Creatinine [Mass/Vol] 0.53 mg/dL 0.52 - 1.25 mg/dL [place] EGFR IF NonAfrican [place]ger >90.0 >60 mL/min [place] Comment on above: KDIGO guidelines pro vide the following GFR categories: Stage GFR(ml/min/1.73 m2) Terms G1 >=90 Normal or high G2 60-89 Mildly decreased* G3a 45-59 Mildly to moderately decreased G3b 30-44 Moderately to severely decreased G4 15-29 Severely decreased G5 <15 Kidney failure *Relative to young adult level. In the absence of evidence of kidney damage, neither GFR category G1 nor G2 fulfill the criteria for CKD. The CKD-EPI equation is validated in individuals 18 years of age and older. Currently the best equation for estimating glomerular filtration rate (GFR) from serum creatinine in children is the Bedside Celis equation. It is less accurate in patients with extremes of muscle mass, restriction of dietary protein, ingestion of creatine, extra-renal metabolism of creatinine, or treatment with medications that affect renal tubular creatinine secretion. GFR/1.73 sq M predicted among blacks MDRD (S/P/Bld) [Vol rate/Area] mL/min/{1.73_m2} >60 mL/min [place] Glucose [Mass/Vol] 130 mg/dL High 70 - 100 mg/dL [place] Potassium [Moles/Vol] 3.5 mmol/L 3.5 - 5.1 mmol/L [place] Sodium [Moles/Vol] 138 mmol/L 135 - 145 mmol/L [place] Urea nitrogen [Mass/Vol] 40 mg/dL High 7 - 20 mg/dL [place] CBC Auto Differentialon 10-20 Erythrocyte distribution width (RBC) [Ratio] 19.5 % High 11.5 - 14.5 % [place] Hematocrit (Bld) [Volume fraction] 28.7 % Low 35 - 47 % [place] Hemoglobin (Bld) [Mass/Vol] 9.5 g/dL Low 11.7 - 16 g/dL [place] Interpretation and review of laboratory results Abnormal [place] MCH (RBC) [Entitic mass] 32.1 pg 26 - 34 pg [place] MCHC (RBC) [Mass/Vol] 33.1 % 32 - 36 % [place] MCV (RBC) [Entitic vol] 96.8 fL 79 - 98 fL [place] Platelet mean volume (Bld) [Entitic vol] 7.2 fL Low 7.4 - 10.4 fL [place] Platelets (Bld) [#/Vol] 429 10*3/uL 140 - 440 10*3/uL [place] RBC (Bld) [#/Vol] 2.96 10*6/uL Low 3.8 - 5.2 10*6/uL [place] WBC (Bld) [#/Vol] 25.9 10*3/uL High 3.6 - 10.7 10*3/uL [place] Test Performed by [facility], [address] [place] [id number] [place] Calcium, Ionizedon 0 Ionized Ca 4.30 mg/dL 4.3 - 5.2 mg/dL [place] pH (Bld) 7.42 [pH] [place] Test Performed by [facility], [address] [place] [address] [place] Hepatic Function Panelon Albumin [Mass/Vol] 3.6 g/dL 3.5 - 5 g/dL [place] ALP [Catalytic activity/Vol] 200 U/L High 38 - 126 U/L [place] ALT [Catalytic activity/Vol] 20 U/L 0 - 34 U/L [place] Comment on above: The ALT test is perf ormed by an updated assay method. Please note that the reference intervals have been changed and are now sex specific. AST [Catalytic activity/Vol] 37 U/L 15 - 46 U/L [place] Bilirubin Ql (U) 1.4 mg/dL High 0.2 - 1.3 mg/dL [place] Bilirubin.direct [Mass/Vol] 0.0 mg/dL 0 - 0.3 mg/dL [place] Protein [Mass/Vol] 6.5 g/dL 6.3 - 8.2 g/dL [place] Magnesiumon 11-04-2019 Magnesium [Mass/Vol] 2.4 mg/dL High 1.6 - 2 .3 mg/dL [place] Manual Differentialon 2019 Absolute Baso # 0.0 10*3/uL 0 - 0.2 10*3/uL [facility] [place] Absolute Eos # 0.0 10*3/uL 0 - 0.5 10*3/uL [facility] [place] Absolute Lymph # 2.1 10*3/uL 1.1 - 4.5 10*3/uL [facility] [place] Absolute Dale # 1.0 10*3/uL 0.2 - 1.1 10*3/uL [facility] [place] Absolute Neut # 22.5 10*3/uL High 2.2 - 8.2 10*3/uL [place] Anisocytosis Ql (Bld) Slight [place] Bands 5 % High 0 - 3 % [facility] [place] Basophils 0 % 0 - 2 % [facility] [place] Eosinophils 0 % Low 1 - 6 % [place] Interpretation and review of laboratory results Abnormal [place] Lymphocytes 8 % Low 20 - 40 % [place] Macrocytosis Slight [place] Microcytosis Slight [facility] [place] Monocytes 4 % 2 - 10 % [facility] [place] Myelocytes 1 % Abnormal <1 [place] Poikilocytes Slight [facility] [place] Polychromasia Slight [place] RBC morphology finding Nom (Bld) ABNORMAL [place] Seg Neutrophils 82 % High 40 - 80 % [place] TOTAL CELLS COUNTED 100 [place] Test Performed by [facility], [address] [place] [address], [place] [address] [place] Otheron 11-04-2019 Interpretation and review of laboratory results Abnormal [place] Test Performed by [facility], [address] [place] [address] [place] Blood Culture, Routine No growth at 5 days. [place] Test Performed by [facility], [address] [place] [id number] Specimen Source Comment:Blood [place] Interpretation and review of laboratory results Abnormal [place] Test Performed by [facility], [address] [place] [address] [place] Phosphoruson 11-04-2019 Phosphate [Mass/Vol] 3.7 mg/dL 2.5 - 4 .5 mg/dL [place] Procalcitoninon 11-04-2019 Interpretation and review of laboratory results Abnormal [place] Procalcitonin 0.11 ng/mL Abnormal <0.10 [place] Sodium [Moles/Vol] See Below [place], [place] Comment on above: PCT <0.50 = Low risk of severe sepsis and/or septic shock. PCT >2.00 = High risk of severe sepsis and/or septic shock. Test Performed by [facility], [address] [place] [id number] [place] Surgical Pathologyon 020 Sodium [Moles/Vol] SEE BELOW [place], [place] 1 [id number] [facility] PATHOLOGY AND LABORATORY MEDICINE [address] [place] [address] [id number] FINAL PERIPHERAL BLOOD REPORT NAME: LINDA KIM : 1955 64 Y F BILLING NO.: [id number] LOCATION: [facility] 6109 [id number] PROCEDURE 10/30/2019 DATE: SURGEON: MATTEO LAYNE MD RECEIVED DATE: 11/01/2019 ATTENDING CAM FINN M.D. REPORT DATE: 11/04/2019 : COPIES TO: DIAGNOSIS: LEUKOCYTOSIS WITH LEFT SHIFT NEUTROPHILIA AND NORMOCYTIC ANEMIA WITH, POLYCHROMASIA RULE OUT BLOOD LOSS, INFECTION AND/OR IRON/NUTRITIONAL DEFICIENCIES NO BLASTS OR DYSGRANULOPOIESIS IS SEEN TRAFFIC DIVISION COMMANDING OFFICER/TRAFFIC DIVISION COMMANDING OFFICER Signature> GAYATHRI QUIÑONEZ M.D. CLINICAL INFORMATION: Peripheral Smear SPECIMEN: PERIPHERAL BLOOD SMEAR GROSS DESCRIPTION: Peripheral smear slide prepared for evaluation. LH3/LH3 Disclaimer: The following statement applies to all immunohistochemistry, in situ hybridization, molecular studies, and immunofluorescence testing. The use of one or more reagents in the above tests is regulated as an analyte specific reagent (ASR). These tests were developed and their performance characteristics determined by the clinical laboratories of [facility]. They have not been cleared by the US Food and Drug Administration (FDA). The FDA has determined that such clearance or approval is not necessary. All the above immunostains were performed on paraffin embedded tissue. Appropriate positive and negative controls (where applicable) were run in parallel with the patient's specimen; these controls showed expected staining pattern, with acceptable intensity of staining. Immunohistochemical assays have not been validated on decalcified tissues. Results should be interpreted with caution given the raised possibility of false negativity on decalcified specimens. DEPARTMENT OF PATHOLOGY AND LABORATORY MEDICINE [place], [place] [id number] [place] Triglycerideson 11-04-2019 Triglyceride [Mass/Vol] 231 mg/dL Abnormal <150 [place] XR ABDOMEN (KUB) (SINGLE AP VIEW)on 11-04-2019 [facility] Incoming Radiology Results From [facility] - 11/04/2019 9:19 AM EDT Patient Name: LINDA KIM ---Diagnostic Radiology--- Exam Date/Time 11/04/2019 08:39:17 EDT Exam CR Abdomen AP Ordering Physician STEFAN ESPINAL Accession Number [id number] CPT4 Codes 87757 () Reason For Exam ileus, NG tube Report ABDOMEN -1 VIEW: CLINICAL INDICATION: Bowel Obstruction TECHNIQUE: 1 view of abdomen and pelvis COMPARISON: November 02, 2019 FINDINGS: Persistent-stable gaseous dilation of small bowel loops. No air-fluid level. The enteric tube tip lies to the right of midline, at the expected location of the proximal duodenum. Bilateral ureteral stents with an ostomy in the right lower quadrant. Multilevel thoracolumbar degenerative change. IMPRESSION 1. Persistent-stable gaseous dilation of small bowel loops. No air-fluid level. 2. The enteric tube tip lies to the right of midline, at the expected location of the proximal duodenum. Report Dictated on --- Final --- Dictated: 11/04/2019 9:16 am Dictating Physician: MD OSMAN JASON Signed Date and Time: 11/04/2019 9:18 am Signed by: MD OSMAN JASON Transcribed Date and Time: 11/04/2019 9:16 [place] Patient Name: LINDA KIM ---Diagnostic Radiology--- Exam Date/Time 11/04/2019 08:39:17 EDT Exam CR Abdomen AP Ordering Physician STEFAN ESPINAL Accession Number [id number] CPT4 Codes 09341 () Reason For Exam ileus, NG tube Report ABDOMEN -1 VIEW: CLINICAL INDICATION: Bowel Obstruction TECHNIQUE: 1 view of abdomen and pelvis COMPARISON: November 02, 2019 FINDINGS: Persistent-stable gaseous dilation of small bowel loops. No air-fluid level. The enteric tube tip lies to the right of midline, at the expected location of the proximal duodenum. Bilateral ureteral stents with an ostomy in the right lower quadrant. Multilevel thoracolumbar degenerative change. IMPRESSION 1. Persistent-stable gaseous dilation of small bowel loops. No air-fluid level. 2. The enteric tube tip lies to the right of midline, at the expected location of the proximal duodenum. Report Dictated on --- Final --- Dictated: 11/04/2019 9:16 am Dictating Physician: MD OSMAN JASON Signed Date and Time: 11/04/2019 9:18 am Signed by: MD OSMAN JASON Transcribed Date and Time: 11/04/2019 9:16 [place] Basic Metabolic Panelon - Anion gap [Moles/Vol] 6 mmol/L [place] Calcium [Mass/Vol] 8.7 mg/dL 8.4 - 10. 4 mg/dL [place] Chloride [Moles/Vol] 106 mmol/L 98 - 10 7 mmol/L [place] CO2 [Moles/Vol] 28 mmol/L 22 - 30 mmol/L [place] Creatinine [Mass/Vol] 0.59 mg/dL 0.52 - 1.25 mg/dL [place] EGFR IF NonAfrican [place] >90.0 >60 mL/min [place] Comment on above: KDIGO guidelines pro vide the following GFR categories: Stage GFR(ml/min/1.73 m2) Terms G1 >=90 Normal or high G2 60-89 Mildly decreased* G3a 45-59 Mildly to moderately decreased G3b 30-44 Moderately to severely decreased G4 15-29 Severely decreased G5 <15 Kidney failure *Relative to young adult level. In the absence of evidence of kidney damage, neither GFR category G1 nor G2 fulfill the criteria for CKD. The CKD-EPI equation is validated in individuals 18 years of age and older. Currently the best equation for estimating glomerular filtration rate (GFR) from serum creatinine in children is the Bedside Celis equation. It is less accurate in patients with extremes of muscle mass, restriction of dietary protein, ingestion of creatine, extra-renal metabolism of creatinine, or treatment with medications that affect renal tubular creatinine secretion. GFR/1.73 sq M predicted among blacks MDRD (S/P/Bld) [Vol rate/Area] mL/min/{1.73_m2} >60 mL/min [place] Glucose [Mass/Vol] 138 mg/dL High 70 - 100 mg/dL [place] Interpretation and review of laboratory results Abnormal [place] Potassium [Moles/Vol] 3.2 mmol/L Low 3.5 - 5.1 mmol/L [place] Sodium [Moles/Vol] 140 mmol/L 135 - 145 mmol/L [place] Urea nitrogen [Mass/Vol] 40 mg/dL High 7 - 20 mg/dL [place] CBC Auto Differentialon 10-20 Erythrocyte distribution width (RBC) [Ratio] 18.1 % High 11.5 - 14.5 % [place] Hematocrit (Bld) [Volume fraction] 24.5 % Low 35 - 47 % [place] Hemoglobin (Bld) [Mass/Vol] 8.2 g/dL Low 11.7 - 16 g/dL [place] Interpretation and review of laboratory results Abnormal [place] MCH (RBC) [Entitic mass] 31.9 pg 26 - 34 pg [place] MCHC (RBC) [Mass/Vol] 33.3 % 32 - 36 % [place] MCV (RBC) [Entitic vol] 95.8 fL 79 - 98 fL [place] Platelet mean volume (Bld) [Entitic vol] 7.3 fL Low 7.4 - 10.4 fL [place] Platelets (Bld) [#/Vol] 358 10*3/uL 140 - 440 10*3/uL [place] RBC (Bld) [#/Vol] 2.56 10*6/uL Low 3.8 - 5.2 10*6/uL [place] WBC (Bld) [#/Vol] 20.9 10*3/uL High 3.6 - 10.7 10*3/uL [facility] [place] Test Performed by [facility], [facility] [place] [address] [facility] Hemoglobin and Hematocrit, B loodon 11-03-2019 Hematocrit (Bld) [Volume fraction] 26.9 % Low 35 - 47 % [facility] [place] Hemoglobin (Bld) [Mass/Vol] 9.0 g/dL Low 11.7 - 16 g/dL [facility] [place] Interpretation and review of laboratory results Abnormal [facility] Test Performed by [facility], [address] [place] [address] [facility] [place] Magnesiumon 11-03-2019 Magnesium [Mass/Vol] 2.2 mg/dL 1.6 - 2 .3 mg/dL [facility] [place] Manual Differentialon 2019 Absolute Baso # 0.0 10*3/uL 0 - 0.2 10*3/uL [facility] [place] Absolute Eos # 0.0 10*3/uL 0 - 0.5 10*3/uL [facility] [place] Absolute Lymph # 1.7 10*3/uL 1.1 - 4.5 10*3/uL [facility] [place] Absolute Dale # 1.3 10*3/uL High 0.2 - 1.1 10*3/uL [facility] [place] Absolute Neut # 17.3 10*3/uL High 2.2 - 8.2 10*3/uL [facility] [place] Bands 7 % High 0 - 3 % [facility] [place] Basophils 0 % 0 - 2 % [facility] [place] Eosinophils 0 % Low 1 - 6 % [facility] [place] Interpretation and review of laboratory results Abnormal [facility] Lymphocytes 8 % Low 20 - 40 % [facility] [place] Metamyelocytes 2 % Abnormal <1 [facility] [place] Monocytes 6 % 2 - 10 % [facility] [place] Myelocytes 1 % Abnormal <1 [facility] [place] nRBC 1 /100{WBCs} High -1 - 0 /100{WBCs} [facility] [place] Comment on above: [place] (<60 days) 1 -10 Adult <1 RBC morphology finding Nom (Bld) See Prev [place], [place] Seg Neutrophils 76 % 40 - 80 % [place] TOTAL CELLS COUNTED 100 [place] Test Performed by [facility], [facility] [place] [address] [place] Otheron 11-03-2019 Test Performed by [facility], [facility] [place] [address] [place] Phosphoruson 11-03-2019 Phosphate [Mass/Vol] 4.3 mg/dL 2.5 - 4 .5 mg/dL [place] XR CHEST PORTABLEon 11-03-19 20 Patient Name: LINDA KIM ---Diagnostic Radiology--- Exam Date/Time 11/03/2019 07:13:09 EDT Exam CR Chest Portable Ordering Physician DO DOWNS SENYO Accession Number [id number] CPT4 Codes 72763 () Reason For Exam pleural effusion Report EXAM: CR Chest Portable INDICATION: Pleural effusion; inpatient VIEWS: Portable frontal COMPARISON: 11/01/2019 at 6:41 TIME: 6:38 on 11/03/2019 FINDINGS: A right MediPort and enteric tube have not significantly changed. Cardiac monitoring wires and leads are present. The patient is rotated. The cardiac silhouette is normal. The lung volumes are low. There is coarsening of the interstitium bilaterally. Mild lucency of the right lung apex possibly representing a bleb, less prominent compared to prior imaging. Small residual right pleural effusion. Bibasilar infiltrates. IMPRESSION: 1. Support devices, as above. 2. Stable exam. Bibasilar infiltrates with residual small right pleural effusion. Report Dictated on --- Final --- Dictated: 11/03/2019 7:43 am Dictating Physician: MD JONES JENNIFER R Signed Date and Time: 11/03/2019 7:47 am Signed by: MD JONES JENNIFER R Transcribed Date and Time: 11/03/2019 7:43 [place] [facility] Incoming Radiology Results From [facility] - 11/03/2019 7:49 AM EDT Patient Name: LINDA KIMN: [id number] ---Diagnostic Radiology--- Exam Date/Time 11/03/2019 07:13:09 EDT Exam CR Chest Portable Ordering Physician DO DOWNS SENYO Accession Number [id number] CPT4 Codes 33499 () Reason For Exam pleural effusion Report EXAM: CR Chest Portable INDICATION: Pleural effusion; inpatient VIEWS: Portable frontal COMPARISON: 11/01/2019 at 6:41 TIME: 6:38 on 11/03/2019 FINDINGS: A right MediPort and enteric tube have not significantly changed. Cardiac monitoring wires and leads are present. The patient is rotated. The cardiac silhouette is normal. The lung volumes are low. There is coarsening of the interstitium bilaterally. Mild lucency of the right lung apex possibly representing a bleb, less prominent compared to prior imaging. Small residual right pleural effusion. Bibasilar infiltrates. IMPRESSION: 1. Support devices, as above. 2. Stable exam. Bibasilar infiltrates with residual small right pleural effusion. Report Dictated on --- Final --- Dictated: 11/03/2019 7:43 am Dictating Physician: MD JONES JENNIFER R Signed Date and Time: 11/03/2019 7:47 am Signed by: MD JONES JENNIFER R Transcribed Date and Time: 11/03/2019 7:43 [place] Basic Metabolic Panelon 06- Anion gap [Moles/Vol] 4 mmol/L [place] Calcium [Mass/Vol] 8.0 mg/dL Low 8.4 - 10. 4 mg/dL [place] Chloride [Moles/Vol] 103 mmol/L 98 - 10 7 mmol/L [place] CO2 [Moles/Vol] 29 mmol/L 22 - 30 mmol/L [place] Creatinine [Mass/Vol] 0.64 mg/dL 0.52 - 1.25 mg/dL [place] EGFR IF NonAfrican [place]ger >90.0 >60 mL/min [place] Comment on above: KDIGO guidelines pro vide the following GFR categories: Stage GFR(ml/min/1.73 m2) Terms G1 >=90 Normal or high G2 60-89 Mildly decreased* G3a 45-59 Mildly to moderately decreased G3b 30-44 Moderately to severely decreased G4 15-29 Severely decreased G5 <15 Kidney failure *Relative to young adult level. In the absence of evidence of kidney damage, neither GFR category G1 nor G2 fulfill the criteria for CKD. The CKD-EPI equation is validated in individuals 18 years of age and older. Currently the best equation for estimating glomerular filtration rate (GFR) from serum creatinine in children is the Bedside Celis equation. It is less accurate in patients with extremes of muscle mass, restriction of dietary protein, ingestion of creatine, extra-renal metabolism of creatinine, or treatment with medications that affect renal tubular creatinine secretion. GFR/1.73 sq M predicted among blacks MDRD (S/P/Bld) [Vol rate/Area] mL/min/{1.73_m2} >60 mL/min [place] Glucose [Mass/Vol] 130 mg/dL High 70 - 100 mg/dL [place] Potassium [Moles/Vol] 3.2 mmol/L Low 3.5 - 5.1 mmol/L [place] Sodium [Moles/Vol] 136 mmol/L 135 - 145 mmol/L [place] Urea nitrogen [Mass/Vol] 34 mg/dL High 7 - 20 mg/dL [place] CBC Auto Differentialon 10-20 Erythrocyte distribution width (RBC) [Ratio] 17.1 % High 11.5 - 14.5 % [place] Hematocrit (Bld) [Volume fraction] 23.4 % Low 35 - 47 % [place] Hemoglobin (Bld) [Mass/Vol] 7.8 g/dL Low 11.7 - 16 g/dL [place] Interpretation and review of laboratory results Abnormal [place] MCH (RBC) [Entitic mass] 31.2 pg 26 - 34 pg [place] MCHC (RBC) [Mass/Vol] 33.3 % 32 - 36 % [place] MCV (RBC) [Entitic vol] 93.8 fL 79 - 98 fL [place] Platelet mean volume (Bld) [Entitic vol] 7.1 fL Low 7.4 - 10.4 fL [place] Platelets (Bld) [#/Vol] 328 10*3/uL 140 - 440 10*3/uL [place] RBC (Bld) [#/Vol] 2.49 10*6/uL Low 3.8 - 5.2 10*6/uL [place] WBC (Bld) [#/Vol] 22.5 10*3/uL High 3.6 - 10.7 10*3/uL [place] Test Performed by [address] [address] [place] Calcium, Ionizedon 0 Interpretation and review of laboratory results Abnormal [place] Ionized Ca 4.00 mg/dL Low 4.3 - 5.2 mg/dL [place] pH (Bld) 7.53 [pH] [place] Test Performed by [address] [address] [place] Hepatic Function Panelon Albumin [Mass/Vol] 3.0 g/dL Low 3.5 - 5 g/dL [place] ALP [Catalytic activity/Vol] 76 U/L 38 - 126 U/L [place] ALT [Catalytic activity/Vol] 17 U/L 0 - 34 U/L [place] Comment on above: The ALT test is perf ormed by an updated assay method. Please note that the reference intervals have been changed and are now sex specific. AST [Catalytic activity/Vol] 32 U/L 15 - 46 U/L [place] Bilirubin Ql (U) 0.6 mg/dL 0.2 - 1.3 mg/dL [place] Bilirubin.direct [Mass/Vol] 0.0 mg/dL 0 - 0.3 mg/dL [place] Protein [Mass/Vol] 5.3 g/dL Low 6.3 - 8.2 g/dL [place] Magnesiumon 11-02-2019 Magnesium [Mass/Vol] 2.1 mg/dL 1.6 - 2 .3 mg/dL [facility] [place] Manual Differentialon 2019 Absolute Baso # 0.2 10*3/uL 0 - 0.2 10*3/uL [facility] Absolute Eos # 0.0 10*3/uL 0 - 0.5 10*3/uL [facility] Absolute Lymph # 0.4 10*3/uL Low 1.1 - 4.5 10*3/uL [facility] [place] Absolute Dale # 0.4 10*3/uL 0.2 - 1.1 10*3/uL [facility] [place] Absolute Neut # 20.5 10*3/uL High 2.2 - 8.2 10*3/uL [facility] [place] Bands 9 % High 0 - 3 % [facility] Basophils 1 % 0 - 2 % [facility] [place] Eosinophils 0 % Low 1 - 6 % [facility] Interpretation and review of laboratory results Abnormal [facility] Lymphocytes 2 % Low 20 - 40 % [facility] Metamyelocytes 3 % Abnormal <1 [facility] [place] Monocytes 2 % 2 - 10 % [facility] Myelocytes 1 % Abnormal <1 [facility] nRBC 1 /100{WBCs} High -1 - 0 /100{WBCs} [facility] Comment on above: [place] (<60 days) 1 -10 Adult <1 Seg Neutrophils 82 % High 40 - 80 % [facility] TOTAL CELLS COUNTED 100 [facility] Test Performed by [facility], [address] [place] [address] [facility] Otheron 11-02-2019 Interpretation and review of laboratory results Abnormal [facility], [place] Test Performed by [facility], [address] [place] [address] [facility] [place] Phosphoruson 11-02-2019 Phosphate [Mass/Vol] 3.1 mg/dL 2.5 - 4 .5 mg/dL [facility] [place] Procalcitoninon 11-02-2019 Interpretation and review of laboratory results Abnormal [facility] Procalcitonin 0.11 ng/mL Abnormal <0.10 [place] Sodium [Moles/Vol] See Below [place], [place] Comment on above: PCT <0.50 = Low risk of severe sepsis and/or septic shock. PCT >2.00 = High risk of severe sepsis and/or septic shock. Test Performed by [facility], [address] [place] [address] [place] Triglycerideon 11-02-2019 Triglyceride [Mass/Vol] 207 mg/dL Abnormal <150 [place] XR ABDOMEN (KUB) (SINGLE AP VIEW)on 11-02-2019 [facility] Incoming Radiology Results From [facility] - 11/02/2019 2:09 PM EDT Patient Name: LINDA KIM ---Diagnostic Radiology--- Exam Date/Time 11/02/2019 14:09:42 EDT Exam CR Abdomen AP Ordering Physician [id number] ROD Accession Number [id number] CPT4 Codes 42136 () Reason For Exam ileus Report EXAM: CR Abdomen AP INDICATION: Ileus; inpatient VIEWS: AP COMPARISON: 11/01/2019 TIME: 13:32 on 11/02/2019 FINDINGS AND IMPRESSION: The bowel gas pattern is nonspecific with multiple air-filled loops of small and large bowel, possible ileus. Mild fecal retention is present in the right ascending colon and cecum. Bilateral ureteral stents are present associated with a catheter ending in an ostomy on the right. A surgical drain overlies the pelvis from a left approach. An enteric tube is present with tip in the region of the distal stomach, to the right of midline. Report Dictated on Workstation: [id number] --- Final --- Dictated: 11/02/2019 1:55 pm Dictating Physician: MD JONES JENNIFER R Signed Date and Time: 11/02/2019 2:02 pm Signed by: MD JONES JENNIFER R Transcribed Date and Time: 11/02/2019 1:55 [place] Patient Name: LINDA KIM ---Diagnostic Radiology--- Exam Date/Time 11/02/2019 14:09:42 EDT Exam CR Abdomen AP Ordering Physician [id number] ROD Accession Number [id number] CPT4 Codes 40895 () Reason For Exam ileus Report EXAM: CR Abdomen AP INDICATION: Ileus; inpatient VIEWS: AP COMPARISON: 11/01/2019 TIME: 13:32 on 11/02/2019 FINDINGS AND IMPRESSION: The bowel gas pattern is nonspecific with multiple air-filled loops of small and large bowel, possible ileus. Mild fecal retention is present in the right ascending colon and cecum. Bilateral ureteral stents are present associated with a catheter ending in an ostomy on the right. A surgical drain overlies the pelvis from a left approach. An enteric tube is present with tip in the region of the distal stomach, to the right of midline. Report Dictated on Workstation: [id number] --- Final --- Dictated: 11/02/2019 1:55 pm Dictating Physician: MD JONES JENNIFER R Signed Date and Time: 11/02/2019 2:02 pm Signed by: MD JONES JENNIFER R Transcribed Date and Time: 11/02/2019 1:55 [place], [place] Add On Lab Teston 11-01-2019 Sodium [Moles/Vol] Accepted [place] Comment on above: Specimen available & acceptable for analysis. Test Performed by [facility], [address] [place] [address] [place] Basic Metabolic Panelon 10-20 Anion gap [Moles/Vol] 6 mmol/L [place] Calcium [Mass/Vol] 8.1 mg/dL Low 8.4 - 10. 4 mg/dL [place] Chloride [Moles/Vol] 103 mmol/L 98 - 10 7 mmol/L [place] CO2 [Moles/Vol] 25 mmol/L 22 - 30 mmol/L [place] Creatinine [Mass/Vol] 0.89 mg/dL 0.52 - 1.25 mg/dL [place] EGFR IF NonAfrican [place] 67.8 mL/min >60 [place] Comment on above: KDIGO guidelines pro vide the following GFR categories: Stage GFR(ml/min/1.73 m2) Terms G1 >=90 Normal or high G2 60-89 Mildly decreased* G3a 45-59 Mildly to moderately decreased G3b 30-44 Moderately to severely decreased G4 15-29 Severely decreased G5 <15 Kidney failure *Relative to young adult level. In the absence of evidence of kidney damage, neither GFR category G1 nor G2 fulfill the criteria for CKD. The CKD-EPI equation is validated in individuals 18 years of age and older. Currently the best equation for estimating glomerular filtration rate (GFR) from serum creatinine in children is the Bedside Celis equation. It is less accurate in patients with extremes of muscle mass, restriction of dietary protein, ingestion of creatine, extra-renal metabolism of creatinine, or treatment with medications that affect renal tubular creatinine secretion. GFR/1.73 sq M predicted among blacks MDRD (S/P/Bld) [Vol rate/Area] 78.6 mL/min/{1.73_m2} >60 [place] Glucose [Mass/Vol] 101 mg/dL High 70 - 100 mg/dL [place] Interpretation and review of laboratory results Abnormal [place] Potassium [Moles/Vol] 4.0 mmol/L 3.5 - 5.1 mmol/L [place] Sodium [Moles/Vol] 133 mmol/L Low 135 - 145 mmol/L [place] Urea nitrogen [Mass/Vol] 37 mg/dL High 7 - 20 mg/dL [place] CBC Auto Differentialon 10-20 Erythrocyte distribution width (RBC) [Ratio] 17.2 % High 11.5 - 14.5 % [place] Hematocrit (Bld) [Volume fraction] 24.3 % Low 35 - 47 % [place] Hemoglobin (Bld) [Mass/Vol] 8.1 g/dL Low 11.7 - 16 g/dL [place] Interpretation and review of laboratory results Abnormal [place] MCH (RBC) [Entitic mass] 30.7 pg 26 - 34 pg [place] MCHC (RBC) [Mass/Vol] 33.3 % 32 - 36 % [place] MCV (RBC) [Entitic vol] 92.1 fL 79 - 98 fL [place] Platelet mean volume (Bld) [Entitic vol] 7.4 fL 7.4 - 10.4 fL [place] Platelets (Bld) [#/Vol] 294 10*3/uL 140 - 440 10*3/uL [place] RBC (Bld) [#/Vol] 2.64 10*6/uL Low 3.8 - 5.2 10*6/uL [place] WBC (Bld) [#/Vol] 36.5 10*3/uL Critically high 3.6 - 1 0.7 10*3/uL [place] Comment on above: repeated Test Performed by [id number] [place] [address] Culture, Urineon 11-01-2019 Bacteria identified Cx Nom (U) No growth (<1,000 CFU/ml). [place] Test Performed by [facility], [address] [place] [id number] Specimen Source Comment:Urine, clean catch [place] Lactic Acid, Plasmaon 2019 Interpretation and review of laboratory results Abnormal [place] Lactate [Moles/Vol] 0.6 mmol/L Low 0.7 - 2 mmol/L [place] Test Performed by [id number] [place] [address] Magnesiumon 11-01-2019 Magnesium [Mass/Vol] 2.2 mg/dL 1.6 - 2 .3 mg/dL [place] Manual Differentialon 2019 Absolute Baso # 0.0 10*3/uL 0 - 0.2 10*3/uL [place] Absolute Eos # 0.0 10*3/uL 0 - 0.5 10*3/uL [place] Absolute Lymph # 1.1 10*3/uL 1.1 - 4.5 10*3/uL [place] Absolute Dale # 2.2 10*3/uL High 0.2 - 1.1 10*3/uL [place] Absolute Neut # 33.2 10*3/uL High 2.2 - 8.2 10*3/uL [place] Anisocytosis Ql (Bld) Slight [place] Bands 15 % High 0 - 3 % [place] Basophils 0 % 0 - 2 % [facility] Eosinophils 0 % Low 1 - 6 % [place] Interpretation and review of laboratory results Abnormal [place] Lymphocytes 3 % Low 20 - 40 % [place] Macrocytosis Slight [place] Monocytes 6 % 2 - 10 % [facility] nRBC 1 /100{WBCs} High -1 - 0 /100{WBCs} [place] Comment on above: (<60 days) 1 -10 Adult <1 Ovalocytes Slight [place] Poikilocytes [place]light [place] RBC morphology finding Nom (Bld) ABNORMAL [place] Seg Neutrophils 76 % 40 - 80 % [place] TOTAL CELLS COUNTED 100 [place] Test Performed by [facility], [address] [place] [id number] [place] [address] Otheron 11-01-2019 Test Performed by [id number] [place] [address] Phosphoruson 11-01-2019 Phosphate [Mass/Vol] 3.3 mg/dL 2.5 - 4 .5 mg/dL [place] Test Performed by [facility], [address] [place] [id number] [place] [address] Procalcitoninon 11-01-2019 Interpretation and review of laboratory results Abnormal [place] Procalcitonin 0.23 ng/mL Abnormal <0.10 [place] Sodium [Moles/Vol] See Below [place] Comment on above: PCT <0.50 = Low risk of severe sepsis and/or septic shock. PCT >2.00 = High risk of severe sepsis and/or septic shock. Test Performed by [facility], [facility] [address], [place] US GUIDE THORACENTESISon [facility], [facility] Incoming Radiology Results From [facility] - 11/01/2019 12:58 PM EDT Patient Name: LINDA KIM ---Ultrasound--- Exam Date/Time 11/01/2019 11:55:06 EDT Exam US Thora-Aspir Pleura w/ Image Ordering Physician DO DOWNS SENYO Accession Number [id number] CPT4 Codes 37328 () Reason For Exam right pleural effusion Report Exam type: Ultrasound chest limited. CLINICAL INDICATION: Evaluate for thoracentesis. COMPARISON: Chest radiograph dated 11/01/2019. TECHNIQUE: Grayscale sonographic images were obtained of the right chest. FINDINGS: Grayscale sonographic images of the right chest showed only a small sliver of fluid. There is insufficient fluid for safe thoracentesis. No intervention was performed. IMPRESSION: Trace amount of right pleural fluid. Insufficient fluid for safe thoracentesis. Report Dictated on --- Final --- Dictated: 11/01/2019 12:47 pm Dictating Physician: MD CERON YUN ROBERT Signed Date and Time: 11/01/2019 12:57 pm Signed by: MD CERON YUN ROBERT Transcribed Date and Time: 11/01/2019 12:47 [place] Patient Name: LINDA KIM ---Ultrasound--- Exam Date/Time 11/01/2019 11:55:06 EDT Exam US Thora-Aspir Pleura w/ Image Ordering Physician DO DOWNS SENYO Accession Number [id number] CPT4 Codes 75515 () Reason For Exam right pleural effusion Report Exam type: Ultrasound chest limited. CLINICAL INDICATION: Evaluate for thoracentesis. COMPARISON: Chest radiograph dated 11/01/2019. TECHNIQUE: Grayscale sonographic images were obtained of the right chest. FINDINGS: Grayscale sonographic images of the right chest showed only a small sliver of fluid. There is insufficient fluid for safe thoracentesis. No intervention was performed. IMPRESSION: Trace amount of right pleural fluid. Insufficient fluid for safe thoracentesis. Report Dictated on --- Final --- Dictated: 11/01/2019 12:47 pm Dictating Physician: MD CERON YUN ROBERT Signed Date and Time: 11/01/2019 12:57 pm Signed by: MD CERON YUN ROBERT Transcribed Date and Time: 11/01/2019 12:47 [place] Vancomycin, Troughon 020 Interpretation and review of laboratory results Abnormal [place] Vancomycin Tr 6.3 ug/mL Low 15 - 20 ug/mL [place] Comment on above: . Test Performed by [facility], [address] [place] [id number] [place] [address] XR ABDOMEN (KUB) (SINGLE AP VIEW)on 11-01-2019 [facility], [facility] Incoming Radiology Results From [facility] - 11/01/2019 3:14 PM EDT Patient Name: LINDA KIM ---Diagnostic Radiology--- Exam Date/Time 11/01/2019 13:06:29 EDT Exam CR Abdomen AP Ordering Physician MD BRYSON, JEREMY Gates Accession Number [id number] CPT4 Codes 97687 () Reason For Exam f/u ileus s/p NGT Report CLINICAL INFORMATION: Abdominal pain and distention. NG tube. KUB is provided. The examination is compared to a previous study dated 10/31/2019. FINDINGS: An NG tube is in place coiled in the stomach. The stomach is decompressed. There is moderate to severe dilatation of mid small bowel loops. The lung bases are clear. IMPRESSION: 1. NG tube with its tip coiled in the stomach. 2. Moderate to severe dilatation of small bowel loops. 3. Significant air-fluid levels or free air cannot be evaluated on this supine-only study. Report Dictated on Workstation: [id number] --- Final --- Dictated: 11/01/2019 3:11 pm Dictating Physician: MD CHRISTINE JEFFREY Signed Date and Time: 11/01/2019 3:13 pm Signed by: MD CHRISTINE JEFFREY Transcribed Date and Time: 11/01/2019 3:11 [place] Patient Name: LINDA KIM ---Diagnostic Radiology--- Exam Date/Time 11/01/2019 13:06:29 EDT Exam CR Abdomen AP Ordering Physician MD QUEEN MARWAN M. Accession Number [id number] CPT4 Codes 54883 () Reason For Exam f/u ileus s/p NGT Report CLINICAL INFORMATION: Abdominal pain and distention. NG tube. KUB is provided. The examination is compared to a previous study dated 10/31/2019. FINDINGS: An NG tube is in place coiled in the stomach. The stomach is decompressed. There is moderate to severe dilatation of mid small bowel loops. The lung bases are clear. IMPRESSION: 1. NG tube with its tip coiled in the stomach. 2. Moderate to severe dilatation of small bowel loops. 3. Significant air-fluid levels or free air cannot be evaluated on this supine-only study. Report Dictated on Workstation: Urlist --- Final --- Dictated: 11/01/2019 3:11 pm Dictating Physician: MD CHRISTINE JEFFREY Signed Date and Time: 11/01/2019 3:13 pm Signed by: MD CHRISTINE JEFFREY Transcribed Date and Time: 11/01/2019 3:11 [place] XR CHEST PORTABLEon 11-01-19 Patient Name: LINDA KIM ---Diagnostic Radiology--- Exam Date/Time 11/01/2019 07:06:12 EDT Exam CR Chest Portable Ordering Physician DO DOWNS SENYO Accession Number [id number] CPT4 Codes 60243 () Reason For Exam bilateral pleural effusion with hypoxia Report CLINICAL INFORMATION: Pleural effusions. Hypoxia. Portable view of the chest at 0640 hours is provided and compared to a previous study dated October 31, 2019. FINDINGS: A Mediport is in place via the right internal jugular vein. The distal tip is in the superior vena cava. An NG tube extends into the stomach. The cardiac silhouette and mediastinum are otherwise unremarkable. There are mild bibasilar infiltrates. There is blunting the right costophrenic angle consistent with a small effusion. IMPRESSION: 1. Mild bibasilar infiltrates. 2. Small right-sided pleural effusion. 3. No significant change when compared yesterday's study. Report Dictated on Workstation: [id number] --- Final --- Dictated: 11/01/2019 9:00 am Dictating Physician: MD CHRISTINE JEFFREY Signed Date and Time: 11/01/2019 9:01 am Signed by: MD CHRISTINE JEFFREY Transcribed Date and Time: 11/01/2019 9:00 [place] [facility], [facility] Incoming Radiology Results From [facility] - 11/01/2019 9:03 AM EDT Patient Name: LINDA KIM ---Diagnostic Radiology--- Exam Date/Time 11/01/2019 07:06:12 EDT Exam CR Chest Portable Ordering Physician DO DOWNS SENYO Accession Number [id number] CPT4 Codes 85261 () Reason For Exam bilateral pleural effusion with hypoxia Report CLINICAL INFORMATION: Pleural effusions. Hypoxia. Portable view of the chest at 0640 hours is provided and compared to a previous study dated October 31, 2019. FINDINGS: A Mediport is in place via the right internal jugular vein. The distal tip is in the superior vena cava. An NG tube extends into the stomach. The cardiac silhouette and mediastinum are otherwise unremarkable. There are mild bibasilar infiltrates. There is blunting the right costophrenic angle consistent with a small effusion. IMPRESSION: 1. Mild bibasilar infiltrates. 2. Small right-sided pleural effusion. 3. No significant change when compared yesterday's study. Report Dictated on Workstation: [id number] --- Final --- Dictated: 11/01/2019 9:00 am Dictating Physician: MD CHRISTINE JEFFREY Signed Date and Time: 11/01/2019 9:01 am Signed by: MD CHRISTINE JEFFREY Transcribed Date and Time: 11/01/2019 9:00 [place] Basic Metabolic Panelon 10-20 Anion gap [Moles/Vol] 9 mmol/L [place] Calcium [Mass/Vol] 7.8 mg/dL Low 8.4 - 10. 4 mg/dL [place] Chloride [Moles/Vol] 103 mmol/L 98 - 10 7 mmol/L [place] CO2 [Moles/Vol] 20 mmol/L Low 22 - 30 mmol/L [place] Creatinine [Mass/Vol] 1.11 mg/dL 0.52 - 1.25 mg/dL [place] EGFR IF NonAfrican [place] 51.9 mL/min Abnormal >60 [place] Comment on above: KDIGO guidelines pro vide the following GFR categories: Stage GFR(ml/min/1.73 m2) Terms G1 >=90 Normal or high G2 60-89 Mildly decreased* G3a 45-59 Mildly to moderately decreased G3b 30-44 Moderately to severely decreased G4 15-29 Severely decreased G5 <15 Kidney failure *Relative to young adult level. In the absence of evidence of kidney damage, neither GFR category G1 nor G2 fulfill the criteria for CKD. The CKD-EPI equation is validated in individuals 18 years of age and older. Currently the best equation for estimating glomerular filtration rate (GFR) from serum creatinine in children is the Bedside Celis equation. It is less accurate in patients with extremes of muscle mass, restriction of dietary protein, ingestion of creatine, extra-renal metabolism of creatinine, or treatment with medications that affect renal tubular creatinine secretion. GFR/1.73 sq M predicted among blacks MDRD (S/P/Bld) [Vol rate/Area] 60.1 mL/min/{1.73_m2} >60 [place] Glucose [Mass/Vol] 115 mg/dL High 70 - 100 mg/dL [place] Interpretation and review of laboratory results Abnormal [place] Potassium [Moles/Vol] 4.7 mmol/L 3.5 - 5.1 mmol/L [place] Sodium [Moles/Vol] 132 mmol/L Low 135 - 145 mmol/L [place] Urea nitrogen [Mass/Vol] 43 mg/dL High 7 - 20 mg/dL [place] Test Performed by [facility], [address] [place] [address] [place] CBC Auto Differentialon 10-20 Erythrocyte distribution width (RBC) [Ratio] 17.5 % High 11.5 - 14.5 % [place] Hematocrit (Bld) [Volume fraction] 24.2 % Low 35 - 47 % [place] Hemoglobin (Bld) [Mass/Vol] 8.3 g/dL Low 11.7 - 16 g/dL [place] Interpretation and review of laboratory results Abnormal [place] MCH (RBC) [Entitic mass] 30.8 pg 26 - 34 pg [place] MCHC (RBC) [Mass/Vol] 34.1 % 32 - 36 % [place] MCV (RBC) [Entitic vol] 90.4 fL 79 - 98 fL [place] Platelet mean volume (Bld) [Entitic vol] 7.4 fL 7.4 - 10.4 fL [place] Platelets (Bld) [#/Vol] 236 10*3/uL 140 - 440 10*3/uL [place] RBC (Bld) [#/Vol] 2.68 10*6/uL Low 3.8 - 5.2 10*6/uL [place] WBC (Bld) [#/Vol] 39.6 10*3/uL Critically high 3.6 - 1 0.7 10*3/uL [place] Test Performed by [address] [address] [place] Hemoglobin and Hematocrit, B loodon 10-31-2019 Hematocrit (Bld) [Volume fraction] 24.3 % Low 35 - 47 % [place] Hemoglobin (Bld) [Mass/Vol] 8.3 g/dL Low 11.7 - 16 g/dL [place] Interpretation and review of laboratory results Abnormal [place] Test Performed by [facility], [address] [place] [address] [place] Magnesiumon 10-31-2019 Magnesium [Mass/Vol] 2.3 mg/dL 1.6 - 2 .3 mg/dL [place] Manual Differentialon 2019 Absolute Baso # 0.0 10*3/uL 0 - 0.2 10*3/uL [place] Absolute Eos # 0.0 10*3/uL 0 - 0.5 10*3/uL [place] Absolute Lymph # 0.4 10*3/uL Low 1.1 - 4.5 10*3/uL [place] Absolute Dale # 1.2 10*3/uL High 0.2 - 1.1 10*3/uL [place] Absolute Neut # 38.0 10*3/uL High 2.2 - 8.2 10*3/uL [place] Bands 5 % High 0 - 3 % [place] Basophils 0 % 0 - 2 % [place] Eosinophils 0 % Low 1 - 6 % [place] Interpretation and review of laboratory results Abnormal [place] Lymphocytes 1 % Low 20 - 40 % [place] Monocytes 3 % 2 - 10 % [place] RBC morphology finding Nom (Bld) See Prev [place] Seg Neutrophils 91 % High 40 - 80 % [place] TOTAL CELLS COUNTED 100 [place] Test Performed by [id number] [place] [address] Otheron 10-31-2019 Test Performed by [id number] [place] [address] PERIPHERAL BLOOD SMEAR, PATH REVIEWon 10-31-2019 Sodium [Moles/Vol] see below [place], [place] Comment on above: See report under Missy gical Pathology. Phosphoruson 10-31-2019 Phosphate [Mass/Vol] 3.1 mg/dL 2.5 - 4 .5 mg/dL [place] Protime-INRon 10-31-2019 INR Coag (PPP) [Relative time] 0.9 {INR} [place], [place] Comment on above: Recommended Anticoag ulant Therapy: SEE BELOW ----- INR of 2.0 - 3.0 : - Prophylaxis of Venous Thrombosis (high-risk surgery) - Treatment of Venous Thrombosis - Treatment of Pulmonary Embolism (Includes tissue heart valves, Acute Myocardial Infarction to prevent systemic embolism, Valvular Heart Disease, and Atrial Fibrillation) ----- INR of 2.5 - 3.5 : - Mechanical Prosthetic Valves (high risk) - If oral anticoagulant therapy is used to prevent Myocardial Infarction PT Coag (PPP) [Time] 10.3 s 9 - 12 s [place], [place] Comment on above: . Test Performed by [facility], [address] [place] [address], [place] [address] [place], [place] Urinalysison 10-31-2019 Appearance (U) Turbid Abnormal Clear NA [place], [place] Comment on above: . Bacteria, UA Few Abnormal Negative /[HPF] [place] Comment on above: . Bilirubin Urine Negative Negative mg/dL [place] Comment on above: . Color (U) Colorless Lt. Yellow NA [place] Comment on above: . Glucose, Ur Normal Normal (<70) mg/dL [place] Comment on above: . Hyaline Casts, UA 3-5 Abnormal Negative /[LPF] [place] Comment on above: . Interpretation and review of laboratory results Abnormal [place] Ketones Ql (U) Trace Abnormal Negative mg/dL [place] Comment on above: . LEUKOCYTES, UA 250 Abnormal Negative Hannah/uL [place], [place] Comment on above: . Mucous Threads Few Negative /[LPF] [place] Comment on above: . Nitrite, Urine Negative Negative NA [place] Comment on above: . Occult Blood,Urine 0.5 mg/dL Abnormal Negative [place] Comment on above: . pH (U) 6.0 [pH] [place], [place] Comment on above: . Protein (U) [Mass/Vol] Negative Negat domenic mg/dL [place] Comment on above: . RBC (U) [#/Vol] 51-100 Abnormal 0 - 2 /[HPF] [place] Comment on above: . Specific [place], Urine 1.011 [place], [place] Comment on above: . Squam Epithel, UA 0-2 3 - 5 /[HPF] [place] Comment on above: . Urobilinogen, Urine Normal Normal ( 0-1) mg/dL [place] Comment on above: . WBC, UA 11-25 Abnormal 0 - 5 /[HPF] [place] Comment on above: . Test Performed by [facility], [address] [place] [id number] [place] XR ABDOMEN (KUB) (SINGLE AP VIEW)on 10-31-2019 Patient Name: LINDA KIM ---Diagnostic Radiology--- Exam Date/Time 10/31/2019 13:18:07 EDT Exam CR Abdomen AP Ordering Physician MD QUEEN MARWAN M. Accession Number [id number] CPT4 Codes 18664 () Reason For Exam Abdominal distention, concern for ileus Report ABDOMEN, Single View: INDICATION: Abdominal distention COMPARISON: 10/30/2019 Supine images of the abdomen were obtained at 1317 hours. There is increased gaseous distention of the transverse colon and continued diffuse small bowel gaseous distention. Bilateral ureteral stents are again seen and a large bore catheter is again noted within the right lower quadrant urostomy. A postsurgical drain is seen overlying the pelvis. No abnormal calcifications are identified. There is no appreciable mass effect. Review of the osseous structures demonstrate arthritic changes of the lower lumbar spine. IMPRESSION: Findings are again noted suggestive of ileus. Continued serial follow-up is recommended to rule out obstruction, however. Report Dictated on Workstation: [id number] --- Final --- Dictated: 10/31/2019 2:13 pm Dictating Physician: DO CORONADO ALFRED Signed Date and Time: 10/31/2019 2:15 pm Signed by: DO CORONADO ALFRED Transcribed Date and Time: 10/31/2019 2:13 [place], [place] Jatin, Sum[facility] Incoming Radiology Results From [facility] - 10/31/2019 2:17 PM EDT Patient Name: LINDA KIM ---Diagnostic Radiology--- Exam Date/Time 10/31/2019 13:18:07 EDT Exam CR Abdomen AP Ordering Physician MD QUEEN MARWAN M. Accession Number [id number] CPT4 Codes 00311 () Reason For Exam Abdominal distention, concern for ileus Report ABDOMEN, Single View: INDICATION: Abdominal distention COMPARISON: 10/30/2019 Supine images of the abdomen were obtained at 1317 hours. There is increased gaseous distention of the transverse colon and continued diffuse small bowel gaseous distention. Bilateral ureteral stents are again seen and a large bore catheter is again noted within the right lower quadrant urostomy. A postsurgical drain is seen overlying the pelvis. No abnormal calcifications are identified. There is no appreciable mass effect. Review of the osseous structures demonstrate arthritic changes of the lower lumbar spine. IMPRESSION: Findings are again noted suggestive of ileus. Continued serial follow-up is recommended to rule out obstruction, however. Report Dictated on Workstation: [id number] --- Final --- Dictated: 10/31/2019 2:13 pm Dictating Physician: DO CORONADO ALFRED Signed Date and Time: 10/31/2019 2:15 pm Signed by: DO CORONADO ALFRED Transcribed Date and Time: 10/31/2019 2:13 [place] XR CHEST PORTABLEon 10-31-19 Patient Name: LINDA KIM ---Diagnostic Radiology--- Exam Date/Time 10/31/2019 09:22:05 EDT Exam CR Chest Portable Ordering Physician DO DOWNS SENYO Accession Number [id number] CPT4 Codes 93182 () Reason For Exam hypoxia Report CHEST (Frontal View) History: Hypoxia Comparison: 10/30/2019 Findings: Frontal portable chest view shows bilateral chronic lung changes with interstitial prominence. There is also pulmonary emphysema with bullae, most pronounced in the right upper lobe, similar to last exam. There is right basilar atelectasis/infiltrate and a smaller linear left basilar atelectasis, unchanged. The heart is normal in size. Tip of right central catheter overlies the SVC. There is no mediastinal widening, pleural effusion, or other significant interval change. Report Dictated on --- Final --- Dictated: 10/31/2019 9:27 am Dictating Physician: MD RAMÓN, [facility] Signed Date and Time: 10/31/2019 9:29 am Signed by: MD MELGAR AHMAD Transcribed Date and Time: 10/31/2019 9:27 [place], [place] Koko Steiner Incoming Radiology Results From [facility] - 10/31/2019 9:31 AM EDT Patient Name: LINDA KIM ---Diagnostic Radiology--- Exam Date/Time 10/31/2019 09:22:05 EDT Exam CR Chest Portable Ordering Physician DO DOWNS SENYO Accession Number [id number] CPT4 Codes 10221 () Reason For Exam hypoxia Report CHEST (Frontal View) History: Hypoxia Comparison: 10/30/2019 Findings: Frontal portable chest view shows bilateral chronic lung changes with interstitial prominence. There is also pulmonary emphysema with bullae, most pronounced in the right upper lobe, similar to last exam. There is right basilar atelectasis/infiltrate and a smaller linear left basilar atelectasis, unchanged. The heart is normal in size. Tip of right central catheter overlies the SVC. There is no mediastinal widening, pleural effusion, or other significant interval change. Report Dictated on --- Final --- Dictated: 10/31/2019 9:27 am Dictating Physician: MD MELGAR AHMAD Signed Date and Time: 10/31/2019 9:29 am Signed by: MD MELGAR AHMAD Transcribed Date and Time: 10/31/2019 9:27 [place] APTTon 10-30-2019 aPTT Coag (Bld) [Time] 24 s 20 - 30.5 s [place] Comment on above: NOTE: The therapeuti c time for Heparin anticoagulation, based on Xa activity inhibition, is an APTT of 46-80 seconds. Test Performed by [address] [address] [place] aPTT Coag (Bld) [Time] 28.5 s 20 - 30.5 s [place] Comment on above: NOTE: The therapeuti c time for Heparin anticoagulation, based on Xa activity inhibition, is an APTT of 46-80 seconds. Test Performed by [facility], [facility] [place] [address] [place] aPTT Coag (Bld) [Time] 30.4 s 20 - 30.5 s M [place], [place] Comment on above: NOTE: The therapeuti c time for Heparin anticoagulation, based on Xa activity inhibition, is an APTT of 46-80 seconds. Test Performed by [facility], [address] [place] [address] [place], [place] Basic Metabolic Panelon - Anion gap [Moles/Vol] 7 mmol/L [place], [place] Calcium [Mass/Vol] 7.7 mg/dL Low 8.4 - 10. 4 mg/dL [place] Chloride [Moles/Vol] 104 mmol/L 98 - 10 7 mmol/L [place] CO2 [Moles/Vol] 19 mmol/L Low 22 - 30 mmol/L [place] Creatinine [Mass/Vol] 2.4 mg/dL High 0.52 - 1.25 mg/dL [place] EGFR IF NonAfrican Luxembourger 20.4 mL/min Abnormal >60 [place], [place] Comment on above: KDIGO guidelines pro vide the following GFR categories: Stage GFR(ml/min/1.73 m2) Terms G1 >=90 Normal or high G2 60-89 Mildly decreased* G3a 45-59 Mildly to moderately decreased G3b 30-44 Moderately to severely decreased G4 15-29 Severely decreased G5 <15 Kidney failure *Relative to young adult level. In the absence of evidence of kidney damage, neither GFR category G1 nor G2 fulfill the criteria for CKD. The CKD-EPI equation is validated in individuals 18 years of age and older. Currently the best equation for estimating glomerular filtration rate (GFR) from serum creatinine in children is the Bedside Celis equation. It is less accurate in patients with extremes of muscle mass, restriction of dietary protein, ingestion of creatine, extra-renal metabolism of creatinine, or treatment with medications that affect renal tubular creatinine secretion. GFR/1.73 sq M predicted among blacks MDRD (S/P/Bld) [Vol rate/Area] 23.7 mL/min/{1.73_m2} Abnormal >60 [place], [place] Glucose [Mass/Vol] 128 mg/dL High 70 - 100 mg/dL [place] Interpretation and review of laboratory results Abnormal [place] Potassium [Moles/Vol] 5.4 mmol/L High 3.5 - 5.1 mmol/L [place] Sodium [Moles/Vol] 130 mmol/L Low 135 - 145 mmol/L [place] Urea nitrogen [Mass/Vol] 48 mg/dL High 7 - 20 mg/dL [place] Test Performed by [facility], [facility] [place] [address] [place], [place] CBC Auto Differentialon 10-20 Erythrocyte distribution width (RBC) [Ratio] 19.4 % High 11.5 - 14.5 % [place] Hematocrit (Bld) [Volume fraction] 19.8 % Low 35 - 47 % [place] Hemoglobin (Bld) [Mass/Vol] 6.6 g/dL Critically low 11.7 - 16 g/dL [place] Comment on above: repeated Interpretation and review of laboratory results Abnormal [place] MCH (RBC) [Entitic mass] 31.5 pg 26 - 34 pg [place] MCHC (RBC) [Mass/Vol] 33.4 % 32 - 36 % [place] MCV (RBC) [Entitic vol] 94.4 fL 79 - 98 fL [place] Platelet mean volume (Bld) [Entitic vol] 8.1 fL 7.4 - 10.4 fL [place] Platelets (Bld) [#/Vol] 257 10*3/uL 140 - 440 10*3/uL [place] RBC (Bld) [#/Vol] 2.10 10*6/uL Low 3.8 - 5.2 10*6/uL [place] WBC (Bld) [#/Vol] 42.4 10*3/uL Critically high 3.6 - 1 0.7 10*3/uL [place] Comment on above: repeated Test Performed by [facility], [address] [place] [id number] [place] CT Abdomen Pelvis Wo Callie manuel 10-30-2019 Patient Name: LINDA KIM ---CT--- Exam Date/Time 10/30/2019 09:54:[address] Abdomen/Pelvis (No PO, No IV) Ordering Physician MD BRYSON, JEREMY Gates Accession Number [id number] CPT4 Codes 09197 (CT Abdomen/Pelvis (No PO, No IV)) Reason For Exam Ongoing anemia, concer for hematoma Report Clinical indication: Ongoing anemia. Concern for hematoma. History of bladder cancer. Comparison: None Radiation dose: DLP 208 mGycm Noncontrast imaging from diaphragm through the ischial tuberosities was performed with axial, coronal and sagittal images reconstructed. Images which include the lung bases show emphysematous changes in the lungs. Small bilateral pleural effusions are present with mild dependent atelectasis, right greater than left. No focal inherent masses are noted in liver or spleen. Gallbladder appears mildly distended. Calcifications are noted in the pancreatic head and scattered through the body and tail. Adrenal glands are not enlarged. Kidneys contain stents bilaterally which extends through the ureters into the patient's recently constructed ileal conduit. There is also a catheter in the ileal conduit. Free intraperitoneal air is present. There is also air within the abdominal wall and subcutaneous tissues. Extraperitoneal air is present in the pelvis all related to the patient's recent surgery. There is small to moderate amount of free fluid around liver and spleen. Fluid is present in the paracolic gutters and there is fluid in the pelvis. Fluid appears slightly more dense than simple ascites and is suspicious for bloody fluid. A surgical drain is noted in the pelvis. Bowel loops are mildly dilated with air and fluid in the ileus pattern. Aorta is atherosclerotic with no aneurysm. Vena cava is incompletely distended. There is no retroperitoneal adenopathy noted. Degenerative endplate hypertrophy is noted in the spine but there are no acute osseous abnormalities. L4-L5 and L5-S1 discs show degenerative changes. IMPRESSION: Free intraperitoneal fluid appears denser than simple ascites and is suspicious for peritoneal blood CTR: I spoke with Raquel, the patient's nurse via telephone at 10:12 AM 10/30/2019. Abdominal wall air, free intraperitoneal air and pelvic extraperitoneal air consistent with the patient's recent surgery Ileal conduit with catheter and bilateral ureteral stents. There is no hydronephrosis. Small bilateral pleural effusions and bilateral dependent atelectasis Report Dictated on --- Final --- Dictated: 10/30/2019 10:03 am Dictating Physician: MD MENDOZA DIANE Signed Date and Time: 10/30/2019 10:12 am Signed by: MD MENDOZA DIANE Transcribed Date and Time: 10/30/2019 10:03 [facility], [place] Jatin, [facility] Incoming Radiology Results From [facility] - 10/30/2019 10:14 AM EDT Patient Name: LINDA KIM ---CT--- Exam Date/Time 10/30/2019 09:54:[address] Abdomen/Pelvis (No PO, No IV) Ordering Physician MD BRYSON, JEREMY Gates Accession Number [id number] CPT4 Codes 21800 (CT Abdomen/Pelvis (No PO, No IV)) Reason For Exam Ongoing anemia, concer for hematoma Report Clinical indication: Ongoing anemia. Concern for hematoma. History of bladder cancer. Comparison: None Radiation dose: DLP 208 mGycm Noncontrast imaging from diaphragm through the ischial tuberosities was performed with axial, coronal and sagittal images reconstructed. Images which include the lung bases show emphysematous changes in the lungs. Small bilateral pleural effusions are present with mild dependent atelectasis, right greater than left. No focal inherent masses are noted in liver or spleen. Gallbladder appears mildly distended. Calcifications are noted in the pancreatic head and scattered through the body and tail. Adrenal glands are not enlarged. Kidneys contain stents bilaterally which extends through the ureters into the patient's recently constructed ileal conduit. There is also a catheter in the ileal conduit. Free intraperitoneal air is present. There is also air within the abdominal wall and subcutaneous tissues. Extraperitoneal air is present in the pelvis all related to the patient's recent surgery. There is small to moderate amount of free fluid around liver and spleen. Fluid is present in the paracolic gutters and there is fluid in the pelvis. Fluid appears slightly more dense than simple ascites and is suspicious for bloody fluid. A surgical drain is noted in the pelvis. Bowel loops are mildly dilated with air and fluid in the ileus pattern. Aorta is atherosclerotic with no aneurysm. Vena cava is incompletely distended. There is no retroperitoneal adenopathy noted. Degenerative endplate hypertrophy is noted in the spine but there are no acute osseous abnormalities. L4-L5 and L5-S1 discs show degenerative changes. IMPRESSION: Free intraperitoneal fluid appears denser than simple ascites and is suspicious for peritoneal blood CTR: I spoke with Raquel, the patient's nurse via telephone at 10:12 AM 10/30/2019. Abdominal wall air, free intraperitoneal air and pelvic extraperitoneal air consistent with the patient's recent surgery Ileal conduit with catheter and bilateral ureteral stents. There is no hydronephrosis. Small bilateral pleural effusions and bilateral dependent atelectasis Report Dictated on --- Final --- Dictated: 10/30/2019 10:03 am Dictating Physician: MD MENDOZA DIANE Signed Date and Time: 10/30/2019 10:12 am Signed by: MD MENDOZA DIANE Transcribed Date and Time: 10/30/2019 10:03 [place] ECHO Complete 2D W Doppler W Coloron 10-30-2019 Jatin, [facility] Incoming Cardiology Results From [facility] - 10/30/2019 5:30 PM EDT TRANSTHORACIC ECHOCARDIOGRAM PATIENT: Linda Kim STUDY DATE: 10/30/2019 : 1955 AGE: 64 HT/WT: 165.1 cm (65 54 kg (118.8 in) lb) GENDER: F BP: 127 / 71 LOCATION[facility] PATIENT Inpatient main STATUS: *ORDERING PHYSICIAN: * Himanshu, *FELLOW: * Pj Garces Semaan *READING PHYSICIAN: * Stephen *CLASSIFIED ADVERTISING CLERK: * Aurelia Martinez MD, [facility] INDICATIONS: Tachycardia. CONCLUSIONS SUMMARY: 1. Left ventricle: The cavity size is normal. Wall thickness is normal. Systolic function is hyperdynamic by visual assessment. The estimated ejection fraction is 75%. There are no regional wall motion abnormalities. Left ventricular diastolic function parameters are normal. 2. Right ventricle: The cavity size is normal. Systolic function is normal. Right ventricular systolic pressure is within the normal range. 3. No significant valve disease. 4. Inferior vena cava: The vessel is small, appearing collapsed, consistent with low central venous pressure. The IVC collapses by greater than 50% with inspiration. STUDY DATA: Complete transthoracic echocardiogram. Procedure: Image quality was suboptimal. The study was technically limited due to respiratory interference, small rib spaces, and supine position. Intravenous imaging enhancement (Definity) was administered to opacify the chamber. Definity lot #: [id number]. M-mode, complete 2D, complete spectral Doppler, and color flow Doppler images were acquired and archived for permanent storage and are available for subsequent review. Study status: Routine. Patient status: Inpatient. ECG RHYTHM: NSR FINDINGS LEFT VENTRICLE: Not well visualized. The cavity size is normal. Wall thickness is normal. Systolic function is hyperdynamic by visual assessment. The estimated ejection fraction is 75%. There are no regional wall motion abnormalities. Left ventricular diastolic function parameters are normal. RIGHT VENTRICLE: Not well visualized. The cavity size is normal. Systolic function is normal. Right ventricular systolic pressure is within the normal range. VENTRICULAR SEPTUM: There is no evidence of a ventricular septal defect. LEFT ATRIUM: Not well visualized. The atrium is normal in size. RIGHT ATRIUM: Not well visualized. The atrium is normal in size. ATRIAL SEPTUM: Color Doppler shows no shunt. MITRAL VALVE: Not well visualized. Structurally normal valve. Doppler: There is trivial, less than 1+ regurgitation. The peak diastolic gradient is 2 mm Hg. AORTIC VALVE: Not well visualized. Structurally normal valve. Trileaflet. Doppler: There is no regurgitation. Dimensionless index: 0.76. The valve area by the velocity-time integral method is 2.1 cm^2. The valve area index by the velocity-time integral method is 1.3 cm^2/m^2. The mean systolic gradient is 5 mm Hg. The peak systolic gradient is 10 mm Hg. The peak systolic velocity is 1.6 m/sec. TRICUSPID VALVE: Not well visualized. Structurally normal valve. Doppler: There is trivial, less than 1+ regurgitation. PULMONIC VALVE: Normal-sized annulus. Doppler: There is trivial, less than 1+ regurgitation. AORTA: The aorta is normal size. PULMONARY ARTERY: Main pulmonary artery: Normal. PERICARDIUM: There is no pericardial effusion. SYSTEMIC VEINS: Inferior vena cava: The vessel is small, appearing collapsed, consistent with low central venous pressure. The IVC collapses by greater than 50% with inspiration. Measurements Value Reference Aortic root ID 2.6 cm <3.8 Aortic root ID, STJ, ED 2.5 cm 2.0 - 3.2 Aortic root ID/bsa, STJ, ED 1.6 cm/m^2 1.1 - 1.9 IVC Value Reference ID 1.5 cm Left ventricle Value Reference LV ID, ED (L) 3.4 cm 3.8 - 5.2 LV ID, ES (L) 2.1 cm 2.2 - 3.5 LV ID/bsa, ED (L) 2.1 cm/m^2 2.3 - 3.1 LV ID/bsa, ES 1.3 cm/m^2 1.3 - 2.1 LV PW thickness, ED 0.8 cm 0.6 - 0.9 LV PW/LV ID ratio, ED 0.23 LV wall mass 92 g 66 - 150 LV wall mass/bsa 58 g/m^2 44 - 88 Stroke volume/bsa, 1-p A2C 59.4 ml/m^2 LV end-diastolic volume, 1-p A4C 60 ml 48 - 140 LV end-systolic volume, 1-p A4C 17 ml 12 - 60 LV end-diastolic volume, 2-p 84 ml 46 - 106 LV end-systolic volume, 2-p 16 ml 14 - 42 LV ejection fraction, 2-p (H) 81 % 54 - 74 LV E/e', lateral 7.4 LV E/e', medial 8.7 LV E/e', average 8 Ventricular septum Value Reference IVS thickness, ED (H) 1.1 cm 0.6 - 0.9 LVOT Value Reference LVOT ID, A-P 1.9 cm LVOT mean velocity, S 0.8 m/sec LVOT peak gradient, S 5 mm Hg Stroke volume (SV), LVOT DP 56 ml Stroke index (SV/bsa), LVOT DP 35 ml/m^2 Aortic valve Value Reference Aortic valve peak velocity, S 1.6 m/sec Aortic valve mean velocity, S 1.1 m/sec Aortic mean gradient, S 5 mm Hg Aortic peak gradient, S 10 mm Hg DI 0.76 Aortic valve area, VTI 2.1 cm^2 Aortic valve area/bsa, VTI 1.3 cm^2/m^2 Left atrium Value Reference LA volume/bsa, ES, 2-p 25 ml/m^2 16 - 34 Mitral valve Value Reference Mitral E-wave peak velocity 0.8 m/sec Mitral A-wave peak velocity 1.1 m/sec Mitral deceleration time 118 ms Mitral peak gradient, D 2 mm Hg Mitral E/A ratio, peak 0.7 Tricuspid valve Value Reference Tricuspid regurg peak velocity 2.6 m/sec <=2.8 Tricuspid peak RV-RA gradient 28 mm Hg Right atrium Value Reference RA area, ES, A4C 10 cm^2 10 - 18 Systemic veins Value Reference Estimated RAP 3 mm Hg Right ventricle Value Reference RV ID, minor axis, ED, A4C base (L) 2.0 cm 2.5 - 4.1 RV ID, minor axis, ED, A4C mid (L) 1.8 cm 1.9 - 3.5 TAPSE, 2D 2.5 cm 1.7 - 3.1 RV pressure, S, DP 31 mm Hg RV s', lateral (H) 19.7 cm/sec 6.0 - 13.4 Legend: (L) and (H) stephen values outside specified reference range. Electronically signed by Stephen Martinez MD, [facility] 10/30/2019 17:30 Prior Signatures: [facility] [place] [place] TRANSTHORACIC ECHOCARDIOGRAM PATIENT: Linda Kim STUDY DATE: 10/30/2019 : 1955 AGE: 64 HT/WT: 165.1 cm (65 54 kg (118.8 in) lb) GENDER: F BP: 127 / 71 LOCATION: [facility] PATIENT Inpatient main STATUS: *ORDERING PHYSICIAN: * Himanshu, *FELLOW: * Pj Garces Semaan *READING PHYSICIAN: * Stephen *CLASSIFIED ADVERTISING CLERK: * Aurelia Martinez MD, [facility] INDICATIONS: Tachycardia. CONCLUSIONS SUMMARY: 1. Left ventricle: The cavity size is normal. Wall thickness is normal. Systolic function is hyperdynamic by visual assessment. The estimated ejection fraction is 75%. There are no regional wall motion abnormalities. Left ventricular diastolic function parameters are normal. 2. Right ventricle: The cavity size is normal. Systolic function is normal. Right ventricular systolic pressure is within the normal range. 3. No significant valve disease. 4. Inferior vena cava: The vessel is small, appearing collapsed, consistent with low central venous pressure. The IVC collapses by greater than 50% with inspiration. STUDY DATA: Complete transthoracic echocardiogram. Procedure: Image quality was suboptimal. The study was technically limited due to respiratory interference, small rib spaces, and supine position. Intravenous imaging enhancement (Definity) was administered to opacify the chamber. Definity lot #: [id number]. M-mode, complete 2D, complete spectral Doppler, and color flow Doppler images were acquired and archived for permanent storage and are available for subsequent review. Study status: Routine. Patient status: Inpatient. ECG RHYTHM: NSR FINDINGS LEFT VENTRICLE: Not well visualized. The cavity size is normal. Wall thickness is normal. Systolic function is hyperdynamic by visual assessment. The estimated ejection fraction is 75%. There are no regional wall motion abnormalities. Left ventricular diastolic function parameters are normal. RIGHT VENTRICLE: Not well visualized. The cavity size is normal. Systolic function is normal. Right ventricular systolic pressure is within the normal range. VENTRICULAR SEPTUM: There is no evidence of a ventricular septal defect. LEFT ATRIUM: Not well visualized. The atrium is normal in size. RIGHT ATRIUM: Not well visualized. The atrium is normal in size. ATRIAL SEPTUM: Color Doppler shows no shunt. MITRAL VALVE: Not well visualized. Structurally normal valve. Doppler: There is trivial, less than 1+ regurgitation. The peak diastolic gradient is 2 mm Hg. AORTIC VALVE: Not well visualized. Structurally normal valve. Trileaflet. Doppler: There is no regurgitation. Dimensionless index: 0.76. The valve area by the velocity-time integral method is 2.1 cm^2. The valve area index by the velocity-time integral method is 1.3 cm^2/m^2. The mean systolic gradient is 5 mm Hg. The peak systolic gradient is 10 mm Hg. The peak systolic velocity is 1.6 m/sec. TRICUSPID VALVE: Not well visualized. Structurally normal valve. Doppler: There is trivial, less than 1+ regurgitation. PULMONIC VALVE: Normal-sized annulus. Doppler: There is trivial, less than 1+ regurgitation. AORTA: The aorta is normal size. PULMONARY ARTERY: Main pulmonary artery: Normal. PERICARDIUM: There is no pericardial effusion. SYSTEMIC VEINS: Inferior vena cava: The vessel is small, appearing collapsed, consistent with low central venous pressure. The IVC collapses by greater than 50% with inspiration. Measurements Value Reference Aortic root ID 2.6 cm <3.8 Aortic root ID, STJ, ED 2.5 cm 2.0 - 3.2 Aortic root ID/bsa, STJ, ED 1.6 cm/m^2 1.1 - 1.9 IVC Value Reference ID 1.5 cm Left ventricle Value Reference LV ID, ED (L) 3.4 cm 3.8 - 5.2 LV ID, ES (L) 2.1 cm 2.2 - 3.5 LV ID/bsa, ED (L) 2.1 cm/m^2 2.3 - 3.1 LV ID/bsa, ES 1.3 cm/m^2 1.3 - 2.1 LV PW thickness, ED 0.8 cm 0.6 - 0.9 LV PW/LV ID ratio, ED 0.23 LV wall mass 92 g 66 - 150 LV wall mass/bsa 58 g/m^2 44 - 88 Stroke volume/bsa, 1-p A2C 59.4 ml/m^2 LV end-diastolic volume, 1-p A4C 60 ml 48 - 140 LV end-systolic volume, 1-p A4C 17 ml 12 - 60 LV end-diastolic volume, 2-p 84 ml 46 - 106 LV end-systolic volume, 2-p 16 ml 14 - 42 LV ejection fraction, 2-p (H) 81 % 54 - 74 LV E/e', lateral 7.4 LV E/e', medial 8.7 LV E/e', average 8 Ventricular septum Value Reference IVS thickness, ED (H) 1.1 cm 0.6 - 0.9 LVOT Value Reference LVOT ID, A-P 1.9 cm LVOT mean velocity, S 0.8 m/sec LVOT peak gradient, S 5 mm Hg Stroke volume (SV), LVOT DP 56 ml Stroke index (SV/bsa), LVOT DP 35 ml/m^2 Aortic valve Value Reference Aortic valve peak velocity, S 1.6 m/sec Aortic valve mean velocity, S 1.1 m/sec Aortic mean gradient, S 5 mm Hg Aortic peak gradient, S 10 mm Hg DI 0.76 Aortic valve area, VTI 2.1 cm^2 Aortic valve area/bsa, VTI 1.3 cm^2/m^2 Left atrium Value Reference LA volume/bsa, ES, 2-p 25 ml/m^2 16 - 34 Mitral valve Value Reference Mitral E-wave peak velocity 0.8 m/sec Mitral A-wave peak velocity 1.1 m/sec Mitral deceleration time 118 ms Mitral peak gradient, D 2 mm Hg Mitral E/A ratio, peak 0.7 Tricuspid valve Value Reference Tricuspid regurg peak velocity 2.6 m/sec <=2.8 Tricuspid peak RV-RA gradient 28 mm Hg Right atrium Value Reference RA area, ES, A4C 10 cm^2 10 - 18 Systemic veins Value Reference Estimated RAP 3 mm Hg Right ventricle Value Reference RV ID, minor axis, ED, A4C base (L) 2.0 cm 2.5 - 4.1 RV ID, minor axis, ED, A4C mid (L) 1.8 cm 1.9 - 3.5 TAPSE, 2D 2.5 cm 1.7 - 3.1 RV pressure, S, DP 31 mm Hg RV s', lateral (H) 19.7 cm/sec 6.0 - 13.4 Legend: (L) and (H) stephen values outside specified reference range. Electronically signed by Stephen Martinez MD, [facility] 10/30/2019 17:30 Prior Signatures: [place], [place] EKG 12 Leadon 10-30-2019 [facility] Test Date: 2019-10-29 Pat Name: Linda Kim Department: 1A5 Room: 5133 Gender: F Ammonia Box Tender: DANY : 1955 Requested By: JOBY LANDRY Order Number: [id number] Reading MD: Milvia Grande Measurements Intervals [place] Rate: 123 P: 58 AZ: 125 QRS: 18 QRSD: 90 T: 66 QT: 310 QTc: 444 Interpretive Statements Sinus tachycardia Electronically Signed On 10-30-2019 9:48:39 EDT by [place], [place] Jatin [facility] Incoming Cardiology Results From [facility] - 10/30/2019 9:49 AM EDT [facility] Test Date: 2019-10-29 Pat Name: Linda Kim Department: 1A5 Room: 5133 Gender: F Ammonia Box Tender: : 1955 Requested By: JOBY LANDRY Order Number: [id number] Reading MD: Milvia Grande Measurements Intervals [place] Rate: 123 P: 58 AZ: 125 QRS: 18 QRSD: 90 T: 66 QT: 310 QTc: 444 Interpretive Statements Sinus tachycardia Electronically Signed On 10-30-2019 9:48:39 EDT by Milvia Grande [place], [place] Hematologyon 10-30-2019 ABO and Rh group Nom (Bld) 5100 [place], [place] Hemoglobin and Hematocrit, B loodon 10-30-2019 Hematocrit (Bld) [Volume fraction] 24.9 % Low 35 - 47 % [place] Hemoglobin (Bld) [Mass/Vol] 8.5 g/dL Low 11.7 - 16 g/dL [place] Interpretation and review of laboratory results Abnormal [place] Test Performed by [facility], [address] [place] [id number] [place], [place] Hepatic Function Panelon Albumin [Mass/Vol] 2.5 g/dL Low 3.5 - 5 g/dL [place] ALP [Catalytic activity/Vol] 85 U/L 38 - 126 U/L [place] ALT [Catalytic activity/Vol] 17 U/L 0 - 34 U/L [place] Comment on above: The ALT test is perf ormed by an updated assay method. Please note that the reference intervals have been changed and are now sex specific. AST [Catalytic activity/Vol] 37 U/L 15 - 46 U/L [place] Bilirubin Ql (U) 0.1 mg/dL Low 0.2 - 1.3 mg/dL [place] Bilirubin.direct [Mass/Vol] 0.0 mg/dL 0 - 0.3 mg/dL [place] Interpretation and review of laboratory results Abnormal [place] Protein [Mass/Vol] 4.6 g/dL Low 6.3 - 8.2 g/dL [place] Test Performed by [id number] [place] [address] Lactic Acid, Plasmaon 2019 Lactate [Moles/Vol] 1 mmol/L 0.7 - 2 mmol/L [place] Test Performed by [address] [address] [place] Manual Differentialon 2019 Absolute Baso # 0.0 10*3/uL 0 - 0.2 10*3/uL [place] Absolute Eos # 0.0 10*3/uL 0 - 0.5 10*3/uL [place] Absolute Lymph # 1.3 10*3/uL 1.1 - 4.5 10*3/uL [place] Absolute Dale # 3.0 10*3/uL High 0.2 - 1.1 10*3/uL [place] Absolute Neut # 37.7 10*3/uL High 2.2 - 8.2 10*3/uL [place] Bands 8 % High 0 - 3 % [place] Basophils 0 % 0 - 2 % [place] Eosinophils 0 % Low 1 - 6 % [place] Interpretation and review of laboratory results Abnormal [place] Lymphocytes 3 % Low 20 - 40 % [place] Metamyelocytes 1 % Abnormal <1 [place] Monocytes 7 % 2 - 10 % [place] RBC morphology finding Nom (Bld) See Prev [place], [place] Seg Neutrophils 81 % High 40 - 80 % [place] TOTAL CELLS COUNTED 100 [place] Test Performed by [facility], [address] [place] [address] [place] Metabolic Panelon 10-30-2019 Sodium [Moles/Vol] [id number] [place] Sodium [Moles/Vol] transfused [place] NM LUNG VENT/PERFUSION (VQ)o n 10-30-2019 Patient Name: LINDA KIM ---Nuc Med--- Exam Date/Time 10/30/2019 09:30:41 EDT Exam NM Pulmonary Perfusion w/ Vent Aerosol Ordering Physician MD FRANTZ, JOBY MIRANDA Accession Number [id number] CPT4 Codes 25059 (), A9567 () Reason For Exam tachycardia, elevated d-dimer Report VENTILATION-PERFUSION (VQ) SCAN CLINICAL INDICATION: Tachycardia, elevated d-dimer Multiple ventilation images of the lungs were obtained after the inhalation of approximately 1 millicuries of technetium-99m DTPA aerosol. Corresponding perfusion images of the lungs were then acquired after the intravenous administration of 5 millicuries of technetium-99m MAA. COMPARISON: Chest x-ray performed the day prior FINDINGS: There is a diffusely heterogeneous appearance of the ventilation images of the lungs, with deposition of aerosol within the central airways. No mismatched perfusion defects are seen on the perfusion images. IMPRESSION: Low probability study for pulmonary embolism. Heterogeneous appearance of the ventilation images with deposition of aerosol within the central airways, consistent with a component of obstructive lung disease. Report Dictated on --- Final --- Dictated: 10/30/2019 9:32 am Dictating Physician: MD CARRASCO JONATHAN R Signed Date and Time: 10/30/2019 9:33 am Signed by: MD CARRASCO JONATHAN R Transcribed Date and Time: 10/30/2019 9:32 [place], [place] Jatin, [facility] Incoming Radiology Results From [facility] - 10/30/2019 9:34 AM EDT Patient Name: LINDA KIM ---Nuc Med--- Exam Date/Time 10/30/2019 09:30:41 EDT Exam NM Pulmonary Perfusion w/ Vent Aerosol Ordering Physician MD LANRDY STEPHEN JOHN Accession Number [id number] CPT4 Codes 86530 (), A9567 () Reason For Exam tachycardia, elevated d-dimer Report VENTILATION-PERFUSION (VQ) SCAN CLINICAL INDICATION: Tachycardia, elevated d-dimer Multiple ventilation images of the lungs were obtained after the inhalation of approximately 1 millicuries of technetium-99m DTPA aerosol. Corresponding perfusion images of the lungs were then acquired after the intravenous administration of 5 millicuries of technetium-99m MAA. COMPARISON: Chest x-ray performed the day prior FINDINGS: There is a diffusely heterogeneous appearance of the ventilation images of the lungs, with deposition of aerosol within the central airways. No mismatched perfusion defects are seen on the perfusion images. IMPRESSION: Low probability study for pulmonary embolism. Heterogeneous appearance of the ventilation images with deposition of aerosol within the central airways, consistent with a component of obstructive lung disease. Report Dictated on --- Final --- Dictated: 10/30/2019 9:32 am Dictating Physician: MD CARRASCO JONATHAN R Signed Date and Time: 10/30/2019 9:33 am Signed by: MD CARRASCO JONATHAN R Transcribed Date and Time: 10/30/2019 9:32 [place] PREPARE RBC (CROSSMATCH), 2 Unitson 10-30-2019 Blood product unit ID (Dose) [#] [id number] [place] Blood product unit ID (Dose) [#] [id number] [place] Sodium [Moles/Vol] [id number] mmol/L [place] Sodium [Moles/Vol] [id number] mmol/L [place] Procalcitoninon 10-30-2019 Interpretation and review of laboratory results Abnormal [place] Procalcitonin 0.78 ng/mL Abnormal <0.10 [place] Sodium [Moles/Vol] See Below [place], [place] Comment on above: PCT <0.50 = Low risk of severe sepsis and/or septic shock. PCT >2.00 = High risk of severe sepsis and/or septic shock. Test Performed by [facility], [address] [place] [address] [place], [place] Surgical Pathologyon 020 Sodium [Moles/Vol] SEE BELOW [place], [place] [phone] [id number] [facility] PATHOLOGY AND LABORATORY MEDICINE [address] [place] [id number] FINAL SURGICAL PATHOLOGY REPORT NAME: LINDA KIM : 1955 64 Y F BILLING NO.: [id number] LOCATION: [facility] 5133 PROCEDURE 10/28/2019 DATE: SURGEON: CAM FINN M.D. RECEIVED 10/28/2019 DATE: ATTENDING: CAM FINN M.D. REPORT DATE: 10/30/2019 COPIES TO: DIAGNOSIS: A. RIGHT DISTAL URETER MARGIN FOR FROZEN - NEGATIVE FOR MALIGNANCY B. LEFT DISTAL URETER MARGIN FOR FROZEN - NEGATIVE FOR MALIGNANCY C. URINARY BLADDER, UTERUS, RIGHT FALLOPIAN TUBE AND RIGHT OVARY, PELVIC EXENTERATION: BLADDER: MULTIPLE MICROSCOPIC RESIDUAL FOCI OF HIGH-GRADE UROTHELIAL CARCINOMA, MICROPAPILLARY TYPE. EXTENSIVE LYMPHOVASCULAR INVASION PRESENT INVASION INTO MUSCULARIS PROPRIA PRESENT MARGINS NEGATIVE. SEE SYNOPTIC REPORT BELOW FOR DETAILS UTERUS: CERVIX: UNREMARKABLE ENDOMETRIUM: ATROPHY MYOMETRIUM: MULTIPLE LEIOMYOMATA RIGHT OVARY: ATROPHY RIGHT FALLOPIAN TUBE: UNREMARKABLE LEFT OVARY AND LEFT FALLOPIAN TUBE: NOT IDENTIFIED D. RIGHT OBTURATOR LYMPH NODES - METASTATIC CARCINOMA INVOLVING ONE OF TWO LYMPH NODES (1/2) Comment: Tumor is also present within lymphovascular spaces in perinodal adipose tissue. E. RIGHT EXTERNAL ILIAC ARTERY LYMPH NODES - METASTATIC CARCINOMA INVOLVING TWO OF TWO LYMPH NODES (2/2) F. LEFT OBTURATOR LYMPH NODES - TWO LYMPH NODES, NEGATIVE FOR MALIGNANCY (0/2) G. LEFT EXTERNAL ILIAC ARTERY LYMPH NODES - ONE LYMPH NODE, NEGATIVE FOR MALIGNANCY (0/1) H. SMALL INTESTINE - UNREMARKABLE PORTION OF SMALL INTESTINE I. RIGHT URETER, FINAL MARGIN - NEGATIVE FOR MALIGNANCY J. LEFT URETER, FINAL MARGIN - NEGATIVE FOR MALIGNANCY SPECIMEN Procedure: Anterior exenteration TUMOR Tumor Site: Right lateral wall, Anterior wall Histologic Type: Urothelial carcinoma, micropapillary variant Histologic Grade: High-grade Tumor Size: Greatest Dimension (Centimeters) - 0.4 cm Tumor Extension: Tumor invades muscularis propria - Tumor invades deep muscularis propria (outer half) Lymphovascular Invasion: Present MARGINS Margins: Uninvolved by invasive carcinoma and carcinoma in situ / noninvasive urothelial carcinoma LYMPH NODES Number of Lymph Nodes Involved: 3 Size of Largest Metastatic Deposit (Centimeters): 0.2 cm Size of Largest Lymph Node Involved (Centimeters): 0.8 cm Extranodal Extension: Present Number of Lymph Nodes Examined: 7 PATHOLOGIC STAGE CLASSIFICATION (pTNM, AJCC 8th Edition) Note: Reporting of pT, pN, and (when applicable) pM categories is based on information available to the pathologist at the time the report is issued. As per the AJCC (Chapter 1, 8th Ed.) it is the managing physician's responsibility to establish the final pathologic stage based upon all pertinent information, including but potentially not limited to this pathology report. Primary Tumor (pT): pT2b Regional Lymph Nodes (pN): pN2 MANAGER PROGRESSIVE CARE TUMOR BLOCK(S): C1, 2, 4 AZ/AZ Signature> SIMON LYNNE M.D. CLINICAL INFORMATION: Malignant wall urinary bladder SPECIMEN: (A) URETER BIOPSY (B) URETER BIOPSY (C) TISSUE NOS (D) LYMPH NODE(S) SPECIMEN (E) LYMPH NODE(S) SPECIMEN (F) LYMPH NODE(S) SPECIMEN (G) LYMPH NODE(S) SPECIMEN (H) SMALL INTESTINE, RESECTION (I) URETER (J) URETER INTRAOPERATIVE CONSULTATION/FROZEN SECTION DIAGNOSIS: FROZEN SECTION DIAGNOSIS: FSA and FSB: Negative for malignancy. Sanjay Acuna M.D./Yajaira Aguilar M.D. GROSS DESCRIPTION: A. Right distal ureter for frozen Received fresh and subsequently placed into formalin is a piece of red tubular soft moses tissue measuring 1.4 x 0.5 x 0.3 cm. The specimen was entirely frozen and the specimen submitted entirely in cassette A1. B. Left distal ureter for frozen Received fresh and subsequently placed into formalin is a specimen for frozen section. The specimen is fragmented, pink-moses soft tissue and is entirely frozen. The specimen measures 0.7 x 0.5 x 0.3 cm. The specimen is submitted entirely in one cassette. C. Pelvic exenteration Received in formalin is a pelvic exenteration containing bladder (7 x 6 x 4 cm) with right (1 cm in length x 0.5 cm in diameter) and left (1 cm in length x 0.5 cm in diameter) ureters, and uterus (6 x 5 x 3 cm) with left fallopian tube (7 cm in length x 0.5 cm in diameter), right fallopian tube (5 cm in length x 0.5 cm in diameter), and right ovary (2 x 1.5 x 1 cm). The left ovary is not identified with the specimen. The serosal surface of the bladder is pink-moses, glistening and free of any areas of lesion or puckering. The anterior surface of the bladder is inked entirely in black. Sectioning through the specimen reveals a pink-moses bladder mucosa with an area of flat defect that is pink-moses and continuous with the bladder wall measuring 1.3 x 1.5 cm at the upper anterior right lateral wall. The rest of the bladder mucosa appears unremarkable. The previously-mentioned lesion does not appear to invade into the muscularis propria. The right and left ureters are closed with plastic clips and the resection margins are submitted in parts A and B. There is a pedunculated lesion on the serosal surface measuring 0.8 cm in diameter on the anterior uterus. The cervix measures 2.5 cm in diameter with a slit-like cervical os measuring 1 cm in length. Sectioning thorugh the uterus reveals an endometrial cavity measuring 3 cm from [id number] and 3.5 cm in length. The endocervical canal measures 2 cm in length. There are multiple white whorled lesions in the myometrium measuring between 0.4 cm in diameter to 1 cm in diameter. The endometrium measures 0.1 cm in thickness and the myometrium measures 1.1 cm in thickness. The left fallopian tube measures 4 cm in length with an average diameter of 0.5 cm. The right fallopian tube measures 4 cm in length with an average diameter of 0.5 cm. The bilateral fallopian tubes have fibrous tissue over what appears to have previously been plastic clips on the fallopian tubes. The right ovary measures 3 x 1.4 x 1 cm. No masses or lesions are identified on the serosal surfaces of the fallopian tubes of right ovary. The fallopian tubes have a pinpoint lumen and the ovary has unremarkable arreola yellow cut surfaces consistent with ovarian tissue. Business Unit Leader sections of the specimen are submitted as follows: Cassette Summary: C1-C5) Area of lesion entirely submitted. C6) Bladder neck. C7) Bladder trigone two sections. C8) Anterior bladder wall two sections. C9) Posterior bladder wall two sections. C10) Left bladder wall. C11) Right bladder wall. C12) Dome of the bladder two sections. C13) Right ureteral orifice. C14) Left ureteral orifice. C15) Ureteral margin. C16) Anterior cervix. C17) Posterior cervix. C18) Anterior full-thickness myometrium. C19) Pedunculated lesion on the anterior uterus. C20) Posterior endomyometrial lesion. C21) Full-thickness posterior endomyometrium. C22) Right ovary and fallopian tube with fimbriae. C23) Left fallopian tube. D. Right obturator lymph nodes Received in formalin is a piece of yellow fatty tissue measuring 3 x 3 x 1 cm. Two possible lymph nodes are identified in the specimen. The first possible lymph node is bisected and submitted in cassette D1. The second possible lymph node is bisected and submitted in cassette D2. E. Right external iliac artery lymph nodes Received in formalin is a piece of yellow fatty tissue measuring 5 x 2 x 1 cm. The specimen appears to be vessel. The specimen is serially sectioned and submitted entirely in two cassettes. F. Left obturator lymph nodes Received in formalin is a piece of yellow fatty tissue measuring 4 x 3 x 1 cm. One possible lymph node is identified in the specimen. The possible lymph node is bisected and submitted entirely in three cassettes. G. Left external iliac artery lymph nodes Received in formalin is a piece of yellow fatty tissue measuring 3.5 x 2 x 1 cm. One possible lymph node is identified in the specimen. The possible lymph node is bisected and submitted entirely in one cassette. H. Small bowel Received in formalin is a piece of bowel clipped with a line of metal sutures. The specimen measures 4 x 1 x 0.5 cm. The line of suture is resected and the rest of the specimen is submitted entirely in cassette H1. I. Final margin right ureter Received in formalin is a piece of ureter measuring 3.5 cm in length with an average diameter of 0.4 cm. The specimen is unoriented. The specimen is serially sectioned and submitted entirely in two cassettes. J. Final margin left ureter Received in formalin is a piece of ureter measuring 1 x 1 x 0.5 cm. The specimen is serially sectioned and submitted entirely in one cassette. AZ/[place] Disclaimer: The following statement applies to all immunohistochemistry, in situ hybridization, molecular studies, and immunofluorescence testing. The use of one or more reagents in the above tests is regulated as an analyte specific reagent (ASR). These tests were developed and their performance characteristics determined by the clinical laboratories of [facility]. They have not been cleared by the US Food and Drug Administration (FDA). The FDA has determined that such clearance or approval is not necessary. All the above immunostains were performed on paraffin embedded tissue. Appropriate positive and negative controls (where applicable) were run in parallel with the patient's specimen; these controls showed expected staining pattern, with acceptable intensity of staining. Immunohistochemical assays have not been validated on decalcified tissues. Results should be interpreted with caution given the raised possibility of false negativity on decalcified specimens. Professional Performing Location: [facility] [address] [place] [address]. DEPARTMENT OF PATHOLOGY AND LABORATORY MEDICINE [place], [place] [address] [place], [place] Troponinon 10-30-2019 Troponin I.cardiac [Mass/Vol] ng/mL 0 - 0.034 ng/mL [place], [place] Comment on above: . Test Performed by [facility], [facility] [place], [place] [id number] [place] [address] XR ABDOMEN (KUB) (SINGLE AP VIEW)on 10-30-2019 Jatin, [facility] Incoming Radiology Results From [facility] - 10/30/2019 7:59 PM EDT Patient Name: LINDA KIM ---Diagnostic Radiology--- Exam Date/Time 10/30/2019 18:55:32 EDT Exam CR Abdomen AP Ordering Physician MD TATYANA, DAVID CARCAMO Accession Number [id number] CPT4 Codes 26183 () Reason For Exam Bloating, ?? ileus Report SINGLE VIEW ABDOMEN CLINICAL INDICATION: Bloating, ?? ileus TECHNIQUE: Single view abdomen x-ray COMPARISON: 10/28/2019 FINDINGS: There is a catheter in the right lower quadrant urostomy and bilateral ureteral stents. Surgical drain in the pelvis. Subcutaneous gas along the abdominal wall on the left compatible with recent surgery. Multiple dilated small bowel loops, with some colonic gas as well. Bowel dilation is more prominent than on the prior study. IMPRESSION: 1. Most concerning for ileus. Continued follow-up recommended to exclude obstruction, however. Report Dictated on --- Final --- Dictated: 10/30/2019 7:55 pm Dictating Physician: MD GILLILAND JOHN R Signed Date and Time: 10/30/2019 7:57 pm Signed by: MD GILLILAND JOHN R Transcribed Date and Time: 10/30/2019 7:55 [place] Patient Name: LINDA KIM ---Diagnostic Radiology--- Exam Date/Time 10/30/2019 18:55:32 EDT Exam CR Abdomen AP Ordering Physician MD TATYANA, DAVID CARCAMO Accession Number [id number] CPT4 Codes 83021 () Reason For Exam Bloating, ?? ileus Report SINGLE VIEW ABDOMEN CLINICAL INDICATION: Bloating, ?? ileus TECHNIQUE: Single view abdomen x-ray COMPARISON: 10/28/2019 FINDINGS: There is a catheter in the right lower quadrant urostomy and bilateral ureteral stents. Surgical drain in the pelvis. Subcutaneous gas along the abdominal wall on the left compatible with recent surgery. Multiple dilated small bowel loops, with some colonic gas as well. Bowel dilation is more prominent than on the prior study. IMPRESSION: 1. Most concerning for ileus. Continued follow-up recommended to exclude obstruction, however. Report Dictated on --- Final --- Dictated: 10/30/2019 7:55 pm Dictating Physician: MD GILLILAND JOHN R Signed Date and Time: 10/30/2019 7:57 pm Signed by: MD GILLILAND JOHN R Transcribed Date and Time: 10/30/2019 7:55 [place] XR CHEST PORTABLEon 10-30-19 Patient Name: LINDA KIM ---Diagnostic Radiology--- Exam Date/Time 10/30/2019 09:53:56 EDT Exam CR Chest Portable Ordering Physician MD LANDRY STEPHEN JOHN Accession Number [id number] CPT4 Codes 13562 () Reason For Exam SOB Report PORTABLE CHEST Clinical indication: SOB Comparison: 10/29/2019. Right internal jugular port catheter terminates about mid superior vena cava. Cardiac silhouette and mediastinal contours are not enlarged. Aorta is atherosclerotic. Lungs are emphysematous. There is mild atelectasis at the lung bases. No pleural effusions are noted. IMPRESSION: Mild basilar atelectasis Emphysema Report Dictated on --- Final --- Dictated: 10/30/2019 10:02 am Dictating Physician: MD MENDOZA DIANE Signed Date and Time: 10/30/2019 10:03 am Signed by: MD MENDOZA DIANE Transcribed Date and Time: 10/30/2019 10:02 [place], [place] [facility] Incoming Radiology Results [facility] - 10/30/2019 10:04 AM EDT Patient Name: LINDA KIM ---Diagnostic Radiology--- Exam Date/Time 10/30/2019 09:53:56 EDT Exam CR Chest Portable Ordering Physician MD LANDRY STEPHEN JOHN Accession Number [id number] CPT4 Codes 45268 () Reason For Exam SOB Report PORTABLE CHEST Clinical indication: SOB Comparison: 10/29/2019. Right internal jugular port catheter terminates about mid superior vena cava. Cardiac silhouette and mediastinal contours are not enlarged. Aorta is atherosclerotic. Lungs are emphysematous. There is mild atelectasis at the lung bases. No pleural effusions are noted. IMPRESSION: Mild basilar atelectasis Emphysema Report Dictated on --- Final --- Dictated: 10/30/2019 10:02 am Dictating Physician: MD MENDOZA DIANE Signed Date and Time: 10/30/2019 10:03 am Signed by: MD MENDOZA DIANE Transcribed Date and Time: 10/30/2019 10:02 [place], [place] Basic Metabolic Panelon 06-0 Anion gap [Moles/Vol] 9 mmol/L [place], [place] Calcium [Mass/Vol] 8.1 mg/dL Low 8.4 - 10. 4 mg/dL [place] Chloride [Moles/Vol] 102 mmol/L 98 - 10 7 mmol/L [place] CO2 [Moles/Vol] 19 mmol/L Low 22 - 30 mmol/L [place] Creatinine [Mass/Vol] 2.2 mg/dL High 0.52 - 1.25 mg/dL [place] EGFR IF NonAfrican [place] 22.7 mL/min Abnormal >60 [place] Comment on above: KDIGO guidelines pro vide the following GFR categories: Stage GFR(ml/min/1.73 m2) Terms G1 >=90 Normal or high G2 60-89 Mildly decreased* G3a 45-59 Mildly to moderately decreased G3b 30-44 Moderately to severely decreased G4 15-29 Severely decreased G5 <15 Kidney failure *Relative to young adult level. In the absence of evidence of kidney damage, neither GFR category G1 nor G2 fulfill the criteria for CKD. The CKD-EPI equation is validated in individuals 18 years of age and older. Currently the best equation for estimating glomerular filtration rate (GFR) from serum creatinine in children is the Bedside Celis equation. It is less accurate in patients with extremes of muscle mass, restriction of dietary protein, ingestion of creatine, extra-renal metabolism of creatinine, or treatment with medications that affect renal tubular creatinine secretion. GFR/1.73 sq M predicted among blacks MDRD (S/P/Bld) [Vol rate/Area] 26.3 mL/min/{1.73_m2} Abnormal >60 [place] Glucose [Mass/Vol] 135 mg/dL High 70 - 100 mg/dL [place] Interpretation and review of laboratory results Abnormal [place] Potassium [Moles/Vol] 5.3 mmol/L High 3.5 - 5.1 mmol/L [place] Sodium [Moles/Vol] 129 mmol/L Low 135 - 145 mmol/L [place] Urea nitrogen [Mass/Vol] 44 mg/dL High 7 - 20 mg/dL [place] Test Performed by [facility], [address] [place] [address] [place] Anion gap [Moles/Vol] 12 mmol/L [place] Calcium [Mass/Vol] 8.5 mg/dL 8.4 - 10. 4 mg/dL [place] Chloride [Moles/Vol] 104 mmol/L 98 - 10 7 mmol/L [place] CO2 [Moles/Vol] 16 mmol/L Low 22 - 30 mmol/L [place] Creatinine [Mass/Vol] 1.34 mg/dL High 0.52 - 1.25 mg/dL [place] EGFR IF NonAfrican [place] 41.3 mL/min Abnormal >60 [place] Comment on above: KDIGO guidelines pro vide the following GFR categories: Stage GFR(ml/min/1.73 m2) Terms G1 >=90 Normal or high G2 60-89 Mildly decreased* G3a 45-59 Mildly to moderately decreased G3b 30-44 Moderately to severely decreased G4 15-29 Severely decreased G5 <15 Kidney failure *Relative to young adult level. In the absence of evidence of kidney damage, neither GFR category G1 nor G2 fulfill the criteria for CKD. The CKD-EPI equation is validated in individuals 18 years of age and older. Currently the best equation for estimating glomerular filtration rate (GFR) from serum creatinine in children is the Bedside Celis equation. It is less accurate in patients with extremes of muscle mass, restriction of dietary protein, ingestion of creatine, extra-renal metabolism of creatinine, or treatment with medications that affect renal tubular creatinine secretion. GFR/1.73 sq M predicted among blacks MDRD (S/P/Bld) [Vol rate/Area] 47.9 mL/min/{1.73_m2} Abnormal >60 [place] Glucose [Mass/Vol] 160 mg/dL High 70 - 100 mg/dL [place] Interpretation and review of laboratory results Abnormal [place] Potassium [Moles/Vol] 5.0 mmol/L 3.5 - 5.1 mmol/L [place] Sodium [Moles/Vol] 131 mmol/L Low 135 - 145 mmol/L [place] Urea nitrogen [Mass/Vol] 29 mg/dL High 7 - 20 mg/dL [place] Test Performed by [facility], [address] [place] [address] [place], [place] CBC Auto Differentialon 0 Erythrocyte distribution width (RBC) [Ratio] 20.5 % High 11.5 - 14.5 % [place] Hematocrit (Bld) [Volume fraction] 26.1 % Low 35 - 47 % [place] Hemoglobin (Bld) [Mass/Vol] 8.7 g/dL Low 11.7 - 16 g/dL [place] MCH (RBC) [Entitic mass] 32.7 pg 26 - 34 pg [place] MCHC (RBC) [Mass/Vol] 33.2 % 32 - 36 % [place] MCV (RBC) [Entitic vol] 98.6 fL High 79 - 98 fL [place] Platelet mean volume (Bld) [Entitic vol] 7.9 fL 7.4 - 10.4 fL [place] Platelets (Bld) [#/Vol] 309 10*3/uL 140 - 440 10*3/uL [place] RBC (Bld) [#/Vol] 2.65 10*6/uL Low 3.8 - 5.2 10*6/uL [place] WBC (Bld) [#/Vol] 57.9 10*3/uL Critically high 3.6 - 1 0.7 10*3/uL [place] D-Dimer, Quantitativeon D-Dimer, Quant 2.84 mg/L High 0 - 0.5 mg/L [place], [place] Comment on above: [employer] D-Dimer va lues of <0.50 mg/L FEU can be used in combination with a pre-test probability model (e.g. Well's) to exclude pulmonary embolism (PE) disease, as well as an aid in the diagnosis of deep vein thrombosis (DVT). Interpretation and review of laboratory results Abnormal [place] Test Performed by [facility], [address] [place] [address] [place] Hemoglobin and Hematocrit, B loodon 10-29-2019 Hematocrit (Bld) [Volume fraction] 28.3 % Low 35 - 47 % [place] Hemoglobin (Bld) [Mass/Vol] 9.2 g/dL Low 11.7 - 16 g/dL [place] Interpretation and review of laboratory results Abnormal [place] Test Performed by [facility], [address] [place] [id number] [place], [place] Manual Differentialon 2019 Absolute Baso # 0.0 10*3/uL 0 - 0.2 10*3/uL [place] Absolute Eos # 0.0 10*3/uL 0 - 0.5 10*3/uL [place] Absolute Lymph # 1.2 10*3/uL 1.1 - 4.5 10*3/uL [place] Absolute Dale # 1.7 10*3/uL High 0.2 - 1.1 10*3/uL [place] Absolute Neut # 54.4 10*3/uL High 2.2 - 8.2 10*3/uL [place] Anisocytosis Ql (Bld) Slight [place] Bands 10 % High 0 - 3 % [facility] Basophils 0 % 0 - 2 % [facility] Eosinophils 0 % Low 1 - 6 % [facility] Lymphocytes 2 % Low 20 - 40 % [place] Macrocytosis Slight [place] Metamyelocytes 1 % Abnormal <1 [place] Monocytes 3 % 2 - 10 % [place] Ovalocytes Slight [place] Poikilocytes Slight [place] RBC morphology finding Nom (Bld) ABNORMAL [place] Seg Neutrophils 84 % High 40 - 80 % [place] TOTAL CELLS COUNTED 200 [place], [place] Comment on above: CORRECTED RESULT...P revious above value was 100, verified on 10/29/19 at 06:55 by V/AUT . Otheron 10-29-2019 Interpretation and review of laboratory results Abnormal [place] Test Performed by [facility], [address] [place] [id number] [place] PREPARE RBC (CROSSMATCH), 1 Unitson 10-29-2019 ABO and Rh group Nom (Bld) 5100 [place], [place] Blood product unit ID (Dose) [#] [id number] [place] Sodium [Moles/Vol] [id number] mmol/L [place] Sodium [Moles/Vol] [id number] [place] Sodium [Moles/Vol] transfused [place] Troponinon 10-29-2019 Troponin I.cardiac [Mass/Vol] ng/mL 0 - 0.034 ng/mL [place], [place] Comment on above: . Test Performed by [facility], [address] [place] [id number] [place] XR CHEST PORTABLEon 10-29-19 Patient Name: LINDA KIM ---Diagnostic Radiology--- Exam Date/Time 10/29/2019 19:15:00 EDT Exam CR Chest Portable Ordering Physician MD LANDRY STEPHEN JOHN Accession Number [id number] CPT4 Codes 02700 () Reason For Exam tachycardia Report PORTABLE CHEST Clinical indication: tachycardia Comparison: None. Right internal jugular port catheter tip terminates about mid superior vena cava level. The cardiac silhouette is not enlarged. Aorta is atherosclerotic. Lungs show emphysematous changes with no focal acute appearing infiltrates. No pleural effusions are identified. IMPRESSION: Emphysematous appearing lungs with no acute abnormality Report Dictated on --- Final --- Dictated: 10/29/2019 7:45 pm Dictating Physician: MD MENDOZA DIANE Signed Date and Time: 10/29/2019 7:46 pm Signed by: MD MENDOZA DIANE Transcribed Date and Time: 10/29/2019 7:45 [place] Incoming Radiology Results From [facility] - 10/29/2019 7:47 PM EDT Patient Name: LINDA KIM ---Diagnostic Radiology--- Exam Date/Time 10/29/2019 19:15:00 EDT Exam CR Chest Portable Ordering Physician MD LANDRY STEPHEN JOHN Accession Number [id number] CPT4 Codes 13925 () Reason For Exam tachycardia Report PORTABLE CHEST Clinical indication: tachycardia Comparison: None. Right internal jugular port catheter tip terminates about mid superior vena cava level. The cardiac silhouette is not enlarged. Aorta is atherosclerotic. Lungs show emphysematous changes with no focal acute appearing infiltrates. No pleural effusions are identified. IMPRESSION: Emphysematous appearing lungs with no acute abnormality Report Dictated on --- Final --- Dictated: 10/29/2019 7:45 pm Dictating Physician: MD MENDOZA DIANE Signed Date and Time: 10/29/2019 7:46 pm Signed by: MD MENDOZA DIANE Transcribed Date and Time: 10/29/2019 7:45 [place] XR ABDOMEN (KUB) (SINGLE AP VIEW)on 10-28-2019 [facility], [facility] Incoming Radiology Results From [facility] - 10/28/2019 2:51 PM EDT Patient Name: LINDA KIM ---Diagnostic Radiology--- Exam Date/Time 10/28/2019 14:25:31 EDT Exam CR Abdomen AP Ordering Physician Cat LAYNE FABRICE H Accession Number [id number] CPT4 Codes 04086 () Reason For Exam Post-op stent placement confirmation Report ABDOMEN, Single View: INDICATION: Postop stent placement COMPARISON: None. A single supine view of the abdomen was obtained at 1418 hours. The bowel gas pattern is satisfactory. There are no obvious findings to suggest pneumoperitoneum. No abnormal calcifications are identified. Bilateral renal stents are present, presumably exiting a right lower quadrant urostomy. There is no appreciable mass effect. Review of the osseous structures demonstrate no gross abnormality. IMPRESSION: Bilateral urinary tract stents place, apparently exiting a right lower quadrant urostomy. Report Dictated on Workstation: [id number] --- Final --- Dictated: 10/28/2019 2:48 pm Dictating Physician: DO CORONADO ALFRED Signed Date and Time: 10/28/2019 2:50 pm Signed by: DO CORONADO ALFRED Transcribed Date and Time: 10/28/2019 2:48 [place] Patient Name: LINDA KIM ---Diagnostic Radiology--- Exam Date/Time 10/28/2019 14:25:31 EDT Exam CR Abdomen AP Ordering Physician Cat LAYNE FABRICE H Accession Number [id number] CPT4 Codes 52746 () Reason For Exam Post-op stent placement confirmation Report ABDOMEN, Single View: INDICATION: Postop stent placement COMPARISON: None. A single supine view of the abdomen was obtained at 1418 hours. The bowel gas pattern is satisfactory. There are no obvious findings to suggest pneumoperitoneum. No abnormal calcifications are identified. Bilateral renal stents are present, presumably exiting a right lower quadrant urostomy. There is no appreciable mass effect. Review of the osseous structures demonstrate no gross abnormality. IMPRESSION: Bilateral urinary tract stents place, apparently exiting a right lower quadrant urostomy. Report Dictated on Workstation: [id number] --- Final --- Dictated: 10/28/2019 2:48 pm Dictating Physician: DO CORONADO ALFRED Signed Date and Time: 10/28/2019 2:50 pm Signed by: DO CORONADO ALFRED Transcribed Date and Time: 10/28/2019 2:48 [place], [place] Add On Lab Teston 10-21-2019 Sodium [Moles/Vol] Accepted [place], [place] Comment on above: Specimen available & acceptable for analysis. Test Performed by [address] [address] [place] Basic Metabolic Panelon 06-0 Anion gap [Moles/Vol] 10 mmol/L [place] Calcium [Mass/Vol] 9.5 mg/dL 8.4 - 10. 4 mg/dL [place] Chloride [Moles/Vol] 105 mmol/L 98 - 10 7 mmol/L [place] CO2 [Moles/Vol] 22 mmol/L 22 - 30 mmol/L [place] Creatinine [Mass/Vol] 0.56 mg/dL 0.52 - 1.25 mg/dL [place] EGFR IF NonAfrican [place] >90.0 >60 mL/min [place], [place] Comment on above: KDIGO guidelines pro vide the following GFR categories: Stage GFR(ml/min/1.73 m2) Terms G1 >=90 Normal or high G2 60-89 Mildly decreased* G3a 45-59 Mildly to moderately decreased G3b 30-44 Moderately to severely decreased G4 15-29 Severely decreased G5 <15 Kidney failure *Relative to young adult level. In the absence of evidence of kidney damage, neither GFR category G1 nor G2 fulfill the criteria for CKD. The CKD-EPI equation is validated in individuals 18 years of age and older. Currently the best equation for estimating glomerular filtration rate (GFR) from serum creatinine in children is the Bedside Celis equation. It is less accurate in patients with extremes of muscle mass, restriction of dietary protein, ingestion of creatine, extra-renal metabolism of creatinine, or treatment with medications that affect renal tubular creatinine secretion. GFR/1.73 sq M predicted among blacks MDRD (S/P/Bld) [Vol rate/Area] mL/min/{1.73_m2} >60 mL/min [place] Glucose [Mass/Vol] 70 mg/dL 70 - 100 mg/dL [place] Interpretation and review of laboratory results Abnormal [place] Potassium [Moles/Vol] 3.9 mmol/L 3.5 - 5.1 mmol/L [place] Sodium [Moles/Vol] 136 mmol/L 135 - 145 mmol/L [place] Urea nitrogen [Mass/Vol] 4 mg/dL Low 7 - 20 mg/dL [place] Test Performed by [facility], [address] [place] [id number] [place] [address] CBC Auto Differentialon Erythrocyte distribution width (RBC) [Ratio] 20.0 % High 11.5 - 14.5 % [place] Hematocrit (Bld) [Volume fraction] 35.3 % 35 - 47 % [place] Hemoglobin (Bld) [Mass/Vol] 11.9 g/dL 11.7 - 16 g/dL [place] Interpretation and review of laboratory results Abnormal [place] MCH (RBC) [Entitic mass] 32.5 pg 26 - 34 pg [place] MCHC (RBC) [Mass/Vol] 33.7 % 32 - 36 % [place] MCV (RBC) [Entitic vol] 96.5 fL 79 - 98 fL [place] Platelet mean volume (Bld) [Entitic vol] 7.1 fL Low 7.4 - 10.4 fL [place] Platelets (Bld) [#/Vol] 103 10*3/uL Low 140 - 440 10*3/uL [facility] RBC (Bld) [#/Vol] 3.66 10*6/uL Low 3.8 - 5.2 10*6/uL [facility] WBC (Bld) [#/Vol] 30.3 10*3/uL Critically high 3.6 - 1 0.7 10*3/uL [facility] Comment on above: REPEATED Test Performed by [facility], [address] [place] [address] [place] Manual Differentialon 2019 Absolute Baso # 0.0 10*3/uL 0 - 0.2 10*3/uL [facility] Absolute Eos # 0.0 10*3/uL 0 - 0.5 10*3/uL [facility] Absolute Lymph # 1.8 10*3/uL 1.1 - 4.5 10*3/uL [facility] Absolute Dale # 1.2 10*3/uL High 0.2 - 1.1 10*3/uL [facility] Absolute Neut # 26.7 10*3/uL High 2.2 - 8.2 10*3/uL [facility] Anisocytosis Ql (Bld) Slight [facility], [place] Bands 34 % High 0 - 3 % [facility] Basophils 0 % 0 - 2 % [facility] Eosinophils 0 % Low 1 - 6 % [place] Interpretation and review of laboratory results Abnormal [facility] Lymphocytes 6 % Low 20 - 40 % [facility] Macrocytosis Slight [facility] Metamyelocytes 1 % Abnormal <1 [facility] Microcytosis Slight [facility] Monocytes 4 % 2 - 10 % [facility] Myelocytes 1 % Abnormal <1 [facility] Other Cells, Blood 0 % <1 [facility] Polychromasia Slight [facility] Promyelocytes 0 % <1 [facility] RBC morphology finding Nom (Bld) ABNORMAL [place] Comment on above: one nucleated rbc ob served unclassified an immature cell? Seg Neutrophils 54 % 40 - 80 % [place] TOTAL CELLS COUNTED 300 [place], [place] Comment on above: CORRECTED RESULT...P revious above value was 100, verified on 10/21/19 at 14:41 by V/AUT . Test Performed by [facility], [facility] [place], [place] [id number] [place] [address] TYPE AND SCREENon 10-21-2019 Sodium [Moles/Vol] Positive [place] Sodium [Moles/Vol] Negative [place] Sodium [Moles/Vol] O [place] Test Performed by [facility], [facility] [place] [address] [place] Hemoglobin and Hematocrit, B loodOrdered By: Ryley Bedolla on 06-17-2019 Hematocrit (Bld) [Volume fraction] 43.8 % 35 - 47 % [employer] Work Phone: Hemoglobin (Bld) [Mass/Vol] 14.8 g/dL 11.7 - 16 g/dL [employer] Work Phone: Test Performed by [facility] [employer] [facility], [facility] [place] [address] [employer] Work Phone: Vital Signs Date Time Vital Sign Value Performing Clinician Troyi harvinder 08-16-2022 15:22-0400 Body height 160 cm Vinayak Rodriguez MD Work Phone: [facility] 08-16-2022 15:22-0400 Body weight 47.17 kg Vinayak Rodriguez MD Work Phone: [facility] 12-20-2021 13:30-0400 Diastolic blood pressure 83 mm[Hg] Benigno Heath MD Work Phone: [facility] 12-20-2021 13:30-0400 Heart rate 80 /min Benigno Heath MD Work Phone: [facility] 12-20-2021 13:30-0400 Respiratory rate 14 /min Benigno Heath MD Work Phone: [facility] 12-20-2021 13:30-0400 SaO2% (BldA) [Mass fraction] 97 % Benigno Heath MD Work Phone: [facility] 12-20-2021 13:30-0400 Systolic blood pressure 142 mm[Hg] Benigno Heath MD Work Phone: [facility] 12-20-2021 11:54-0400 Body temperature 97 [degF] Benigno Heath MD Work Phone: [facility] 12-20-2021 08:25-0400 Body height 162.6 cm Benigno Heath MD Work Phone: [facility] 12-20-2021 08:25-0400 Body mass index (BMI) [Ratio] 17.16 kg/m2 Benigno Heath MD Work Phone: [facility] 12-20-2021 08:25-0400 Body weight 45.36 kg Benigno Heath MD Work Phone: [facility] 12-13-2021 10:33-0400 Body temperature 97.5 [degF] Benigno Heath MD Work Phone: [facility] 12-13-2021 10:33-0400 Diastolic blood pressure 62 mm[Hg] Benigno Heath MD Work Phone: [facility] 12-13-2021 10:33-0400 Heart rate 90 /min Benigno Heath MD Work Phone: [facility] 12-13-2021 10:33-0400 Respiratory rate 20 /min Benigno Heath MD Work Phone: [facility] 12-13-2021 10:33-0400 SaO2% (BldA) [Mass fraction] 98 % Benigno Heath MD Work Phone: [facility] 12-13-2021 10:33-0400 Systolic blood pressure 114 mm[Hg] Benigno Heath MD Work Phone: [facility] 12-13-2021 10:190400 Body height 162.6 cm Benigno Heath MD [facility] 12-13-2021 10:19-0400 Body mass index (BMI) [Ratio] 17.18 kg/m2 Benigno Heath MD Work Phone: [facility] 12-13-2021 10:19040 Body weight 45.41 kg Benigno Heath MD Work Phone: [facility] 01-04-2021 10:26-0400 Body temperature 97.9 [degF] Jacob Elizondo MD Work Phone: [facility] Work Phone: 01-04-2021 10:26-0400 Diastolic blood pressure 64 mm[Hg] Jacob Elizondo MD Work Phone: [facility] Work Phone: 01-04-2021 10:26-0400 Heart rate 84 /min Jacob Elizondo MD Work Phone: [facility] Work Phone: 01-04-2021 10:26-0400 Respiratory rate 16 /min Jacob Elizondo MD Work Phone: [facility] Work Phone: 01-04-2021 10:26-0400 SaO2% (BldA) [Mass fraction] 98 % Jacob Elizondo MD Work Phone: [facility] Work Phone: 01-04-2021 10:26-0400 Systolic blood pressure 108 mm[Hg] Jacob Elizondo MD Work Phone: [facility] Work Phone: 12-31-2020 22:27-0400 Body height 162.6 cm Jacob Elizondo MD Work Phone: [facility] Work Phone: 12-31-2020 22:27-0400 Body mass index (BMI) [Ratio] 18.19 kg/m2 Jacob Elizondo MD Work Phone: [facility] Work Phone: 12-31-2020 22:27-0400 Body weight 48.08 kg Jacob Elizondo MD Work Phone: [facility] Work Phone: 11-03-2020 09:24-0400 Body temperature 97.81 [degF] Aurora Van MD Work Phone: [facility] Work Phone: 11-03-2020 09:24-0400 Diastolic blood pressure 74 mm[Hg] Aurora Van MD Work Phone: [facility] Work Phone: 11-03-2020 09:24-0400 Heart rate 108 /min Aurora Van MD Work Phone: [facility] Work Phone: 11-03-2020 09:24-0400 Respiratory rate 18 /min Aurora Van MD Work Phone: [facility] Work Phone: 11-03-2020 09:24-0400 SaO2% (BldA) [Mass fraction] 95 % Aurora Van MD Work Phone: [facility] Work Phone: 11-03-2020 09:24-0400 Systolic blood pressure 121 mm[Hg] Aurora Van MD Work Phone: [facility] Work Phone: 10-31-2020 13:09-0400 Body height 165.1 cm Aurora Van [facility] Work Phone: 10-28-2020 04:15-0400 Body mass index (BMI) [Ratio] 18.3 kg/m2 Aurora Van MD [facility] Work Phone: 10-28-2020 04:15-0400 Body weight 49.9 kg Aurora Van MD Work Phone: [facility] Work Phone: 06-11-2020 15:00-0500 Body Temperature 98.1 [degF] [facility] [place] 06-11-2020 14:30-0500 BP Diastolic 72 mm[Hg] [facility] [place] 06-11-2020 14:30-0500 BP Systolic 144 mm[Hg] [facility] [place] 06-11-2020 14:30-0500 Pulse (Heart Rate) 76 /min [facility] [place] 06-11-2020 14:30-0500 Pulse Oximetry 97 % [facility] [place] 06-11-2020 14:30-0500 Respiratory Rate 16 /min [facility] [facility] [place] 05-25-2020 13:14-0500 BMI (Body Mass Index) 17.5 kg/m2 [facility] [place] 05-25-2020 13:14-0500 Body Temperature 99.19 [degF] [facility] [place] 05-25-2020 13:14-0500 Body weight 48.44 kg [facility] [place] 05-25-2020 13:14-0500 BP Diastolic 85 mm[Hg] [facility] [place] 05-25-2020 13:14-0500 BP Systolic 147 mm[Hg] [facility] [place] 05-25-2020 13:14-0500 Height 166.4 cm [facility] [place] 05-25-2020 13:14-0500 Pulse (Heart Rate) 77 /min [facility] [place] 05-25-2020 13:14-0500 Pulse Oximetry 98 % [facility] [place] 05-25-2020 13:14-0500 Respiratory Rate 20 /min [facility] [place] 11-20-2019 09:46-0400 Body Temperature 98.71 [degF] [facility] [place] 11-20-2019 09:46-0400 BP Diastolic 72 mm[Hg] Tean Rowe [facility] , [place] 11-20-2019 09:46-0400 BP Systolic 132 mm[Hg] Tena Rowe [facility] , [place] 11-20-2019 09:46-0400 Pulse (Heart Rate) 86 /min Tena Rowe [facility] 11-20-2019 09:46-0400 Pulse Oximetry 95 % Tena Rowe [facility] , [place] 11-20-2019 05:41-0400 Respiratory Rate 18 /min Tena Rowe [facility] , [place] 11-20-2019 00:07-0400 BMI (Body Mass Index) 20.7 kg/m2 Tena Rowe [facility] 11-20-2019 00:07-0400 Body weight 55.57 kg [facility] [place] 11-12-2019 09:47-0400 Body Temperature 98.1 [degF] [facility] [place] 11-12-2019 09:47-0400 BP Diastolic 68 mm[Hg] [facility] [place] 11-12-2019 09:47-0400 BP Systolic 119 mm[Hg] [facility] [place] 11-12-2019 09:47-0400 Pulse (Heart Rate) 98 /min [facility], [place] 11-12-2019 09:47-0400 Pulse Oximetry 95 % [facility] [place] 11-12-2019 09:47-0400 Respiratory Rate 18 /min [facility] [place] 10-31-2019 13:41-0400 Height 163.8 cm [facility] , [place] 10-28-2019 05:45-0400 BMI (Body Mass Index) 20.11 kg/m2 [facility] [place] 10-28-2019 05:45-0400 Body [facility] 53.98 [facility] [place] 10-21-2019 09:59-0400 BMI (Body Mass Index) 20.14 kg/m2 [facility] [place] 10-21-2019 09:59-0400 Body Temperature 99.7 [degF] [facility] [place] 10-21-2019 09:59-0400 Body weight 54.07 kg [facility] [place] 10-21-2019 09:59-0400 BP Diastolic 87 mm[Hg] [facility] [place] 10-21-2019 09:59-0400 BP Systolic 170 mm[Hg] [facility] [place] 10-21-2019 09:59-0400 Height 163.8 [facility] [place] 10-21-2019 09:59-0400 Pulse (Heart Rate) 107 /min [facility] 10-21-2019 09:59-0400 Pulse Oximetry 98 % [facility] [place] 10-21-2019 09:59-0400 Respiratory Rate 20 /min [facility] 06-17-2019 10:45-0500 Heart rate 68 /min Anshul Salinas MD Work Phone: [facility] Work Phone: 06-17-2019 10:00-0500 Diastolic blood pressure 85 mm[Hg] Anshul Salinas MD Work Phone: [facility] Work Phone: 06-17-2019 10:00-0500 Respiratory rate 16 /min Anshul Salinas MD Work Phone: [facility] Work Phone: 06-17-2019 10:00-0500 SaO2% (BldA) [Mass fraction] 100 % Anshul Salinas MD Work Phone: [facility] Work Phone: 06-17-2019 10:00-0500 Systolic blood pressure 149 mm[Hg] Anshul Salinas MD Work Phone: [facility] Work Phone: 06-17-2019 08:46-0500 Body temperature 96.8 [degF] Anshul Salinas MD Work Phone: [facility] Work Phone: 06-17-2019 05:42-0500 Body height 167.6 cm Anshul Salinas MD Work Phone: [facility] Work Phone: 06-17-2019 05:42-0500 Body mass index (BMI) [Ratio] 17.75 kg/m2 Anshul Salinas MD Work Phone: [facility] Work Phone: 06-17-2019 05:42-0500 Body weight 49.9 kg Anshul Salinas MD Work Phone: [facility] Work Phone: Encounters Encounter Date Encounter Type Care Provider Facility Start: 01-27-2023 End: 01-30-2023 Evaluation and management of inpatient BEATRICE S [facility] Start: 09-02-2022 Patient encounter procedure [facility] Provider [facility] Department Start: 08-18-2022 ambulatory Radha Betancur [facility] ty:[facility] Start: 08-17-2022 Telephone encounter Scar Mendez APRNJimena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 Work Phone: [facility] [place] Comment on above: Results Start: 08-16-2022 ambulatory VINAYAK RODRIGUEZ F acility:[id number] Start: 08-16-2022 End: 08-16-2022 ambulatory VINAYAK RODRIGUEZ Facility:[id number] Start: 08-16-2022 End: 08-16-2022 Subsequent hospital visit by physician [facility] Comment on above: N20.0, R31.9 Start: 08-16-2022 End: 08-16-2022 Patient encounter procedure Vinayak Rodriguez MD Work Phone: [facility] [place] Comment on above: Kidney stones (Prima ry Dx); Hematuria, unspecified type Start: 08-16-2022 End: 08-16-2022 Emergency department patient visit SKINNY Ann SUJEY [facility] Start: 04-11-2022 End: 04-11-2022 Emergency department patient visit KRIS THAO [facility] Start: 12-20-2021 End: 12-20-2021 Subsequent hospital visit by physician Benigno Heath MD Work Phone: [facility] General Surgery Comment on above: Post-op pain (Primar y Dx) Start: 12-13-2021 End: 12-13-2021 Subsequent hospital visit by physician Benigno Heath MD Work Phone: [facility] Pre-Admit Testing Comment on above: Arrived Start: 12-31-2020 End: 01-04-2021 Evaluation and management of inpatient Jacob Elizondo MD Work Phone: [facility] H6 TELEMETRY Comment on above: Small bowel obstruct ion (HCC) (Primary Dx) Start: 10-28-2020 End: 11-03-2020 Evaluation and management of inpatient Aurora Van MD Work Phone: [facility] H5 MED SURG Comment on above: SBO (small bowel obs truction) (HCC) (Primary Dx) Start: 06-11-2020 End: 06-11-2020 Subsequent hospital visit by physician Vicky Storey Work Phone: [facility] General Surgery Comment on above: 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) Start: 05-25-2020 End: 05-25-2020 Subsequent hospital visit by physician Vicky Storey Work Phone: [facility] Pre-Admit Testing Comment on above: Arrived Start: 11-16-2019 End: 11-20-2019 Evaluation and management of inpatient Tena Alvarado Work Phone: [facility]6 TELEMETRY Start: 10-28-2019 End: 11-12-2019 Evaluation and management of inpatient Cam Finn Work Phone: [facility] TELEMET[facility] Comment on above: Bladder tumor (Prima ry Dx) Start: 10-21-2019 End: 10-21-2019 Subsequent hospital visit by physician Cam Finn Work Phone: [facility] Pre-Admit Testing Comment on above: Arrived Start: 06-17-2019 End: 06-17-2019 Subsequent hospital visit by physician Anshul Salinas MD Work Phone: [facility] General Surgery Comment on above: Vulvar dysplasia (Pr imary Dx) Start: 06-10-2019 End: 06-10-2019 Subsequent hospital visit by physician Anshul Salinas MD Work Phone: [facility] Pre-Admit Testing Comment on above: Arrived Procedures Date Procedure Procedure Detail Performing Clinician Start: 01-27-2023 Urinalysis KRIS GOVEA Comment on above: Result Comment: URIN ALYSIS Performed By: [id number] #### [facility],[address] [place] [address] Start: 08-16-2022 Urinalysis KRIS GOVEA Comment on above: Result Comment: URIN ALYSIS Performed By: #### [id number] #### [facility],[address] [place] [address] Start: 12-20-2021 OPERATIVE REPORT Physic nichol Generic Start: 12-13-2021 Ecg routine ecg w/le ast 12 lds w/i&r Pieter Perkins [employer]SM[employer]ION MECH[employer]IC - 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 Work Phone: Start: 12-13-2021 Basic metabolic pane l calcium total Pietermonae Perkins AUTO TRANSMISSION MECHANIC - 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 Work Phone: Start: 02-25-2021 H/O: surgery History of ile al conduit Benigno Heath MD Work Phone: Start: 01-04-2021 Assay of magnesium Diane sa Alno Garcia MD Work Phone: Start: 01-04-2021 BASIC METABOLIC PANE L W/ REFLEX TO MG FOR LOW K Rajeevsa Alon Garcia MD Work Phone: Start: 01-03-2021 Assay of magnesium Diane sa Alon Whelantta MD Work Phone: Start: 01-03-2021 BASIC METABOLIC PANE L W/ REFLEX TO MG FOR LOW K Rajeev Garcia MD Work Phone: Start: 01-02-2021 Assay of magnesium Diane Garcia MD Work Phone: Start: 01-02-2021 BASIC METABOLIC PANE L W/ REFLEX TO MG FOR LOW K Rajeev Garcia MD Work Phone: Start: 01-01-2021 Radiologic exam smal l int single contrast study Rajeev Garcia MD Work Phone: Start: 01-01-2021 Radiologic exam abdo men 1 view Philip Smiley MD Work Phone: Start: 01-01-2021 Comprehensive metabo lic panel Rajeev Garcia MD Work Phone: Start: 11-02-2020 Basic metabolic pane l calcium total Erika Holden MD Work Phone: Start: 11-01-2020 Radiologic exam abdo men 1 view Merlin Palmer MD Work Phone: Start: 11-01-2020 Basic metabolic pane l calcium total Erika Holden MD Work Phone: Start: 10-31-2020 Radiologic exam abdo men 1 view Ruben Neil MD Work Phone: Start: 10-31-2020 Basic metabolic pane l calcium total Erika Holden MD Work Phone: Start: 10-30-2020 Radiologic exam abdo men 1 view Erika Holden MD Work Phone: Start: 10-30-2020 OPERATIVE REPORT 3m Sca nning Start: 10-30-2020 Ct abdomen & pelvis w/o contrast material Ruben Neil MD Work Phone: Start: 10-30-2020 Radiologic exam abdo men 1 view Erika Holden MD Work Phone: Start: 10-30-2020 Basic metabolic pane l calcium total Erika Holden MD Work Phone: Start: 10-29-2020 Radiologic exam smal l int single contrast study Jacobo Ro MD Work Phone: Start: 10-29-2020 Basic metabolic pane l calcium total Erika Holden MD Work Phone: Start: 10-28-2020 Radiologic exam abdo men 1 view Jacobo Ro MD Work Phone: Start: 10-28-2020 Radiologic exam abdo men 1 view Aurora Van MD Work Phone: Start: 10-28-2020 Ecg routine ecg w/le ast 12 lds w/i&r Aurora Van MD Work Phone: Start: 10-28-2020 Basic metabolic pane l calcium total Erika Holden MD Work Phone: Start: 06-11-2020 OPERATIVE REPORT 3m Sca nning Start: 06-11-2020 Colonoscopy Benigno damon MD Work Phone: Start: 05-25-2020 Basic metabolic pane l calcium total Radha L Campbell Work Phone: Start: 05-25-2020 Blood count complete automated Radha L Campbell Work Phone: Start: 05-25-2020 Prothrombin time Radha L Campbell Work Phone: Start: 05-25-2020 Ecg routine ecg w/le ast 12 lds w/i&r Radha L Campbell Work Phone: Start: 11-20-2019 Assay of magnesium Anto nio Jenae Work Phone: Start: 11-20-2019 Assay of phosphorus inorganic Anthony Jenae Work Phone: Start: 11-20-2019 Blood count complete auto&auto difrntl wbc Tena Alvarado Work Phone: Start: 11-20-2019 Comprehensive metabo lic panel Tena Dunhammagdaleno Work Phone: Start: 11-20-2019 Procalcitonin (pct) Gre ramy Alvarado Work Phone: Start: 11-19-2019 Assay of magnesium Anto nio Jenae Work Phone: Start: 11-19-2019 Assay of phosphorus inorganic Anthony Jenae Work Phone: Start: 11-19-2019 Basic metabolic pane l calcium total Anthony Jenae Work Phone: Start: 11-19-2019 Blood count complete automated Anthony Jenae Work Phone: Start: 11-18-2019 Assay of magnesium Anto nio Jenae Work Phone: Start: 11-18-2019 Assay of phosphorus inorganic Anthony Jenae Work Phone: Start: 11-18-2019 Basic metabolic pane l calcium total Anthony Jenae Work Phone: Start: 11-18-2019 Blood count complete automated Anthony Jenae Work Phone: Start: 11-17-2019 BLOOD OCCULT STOOL S CREEN #1 Elma Leonardo Work Phone: Start: 11-17-2019 CT ABDOMEN PELVIS W CONTRAST Merlin Harrison Work Phone: Start: 11-17-2019 Assay of magnesium Anto nio Jenae Work Phone: Start: 11-17-2019 Assay of phosphorus inorganic Anthony Jenae Work Phone: Start: 11-17-2019 Basic metabolic pane l calcium total Anthony Jenae Work Phone: Start: 11-17-2019 Blood count complete automated Anthony Jenae Work Phone: Start: 11-17-2019 TRANSFUSE RED BLOOD CELLS Anthony Jenae Work Phone: Start: 11-16-2019 Blood count hemoglobin Tena Alvarado Work Phone: Start: 11-16-2019 Assay of troponin quantitative Tena Alvarado Work Phone: Start: 11-16-2019 Blood count hemoglobin Elma Carnes Work Phone: Start: 11-16-2019 TRANSFUSE RED BLOOD CELLS Merlin Harrison Work Phone: Start: 11-16-2019 Assay of troponin quantitative Tena Alvarado Work Phone: Start: 11-16-2019 Blood typing serolog ic abo Merlin Harrison Work Phone: Start: 11-16-2019 Prothrombin time Jesse Harrison Work Phone: Start: 11-16-2019 Ecg routine ecg w/le ast 12 lds w/i&r Tena Alvarado Work Phone: Start: 11-16-2019 Assay of troponin quantitative Tena Alvarado Work Phone: Start: 11-16-2019 Blood count complete auto&auto difrntl wbc Tena Alvarado Work Phone: Start: 11-16-2019 Comprehensive metabo lic panel Tena Alvarado Work Phone: Start: 11-16-2019 MANUAL DIFFERENTIAL Kathy Alvarado Work Phone: Start: 11-16-2019 Procalcitonin (pct) Kathy Alvarado Work Phone: Start: 11-12-2019 Assay of magnesium Desirae ssa Pastoressa Work Phone: Start: 11-12-2019 Assay of phosphorus inorganic Vesta Pastoressa Work Phone: Start: 11-12-2019 Basic metabolic pane l calcium total Vesta Pastoressa Work Phone: Start: 11-12-2019 Blood count complete auto&auto difrntl wbc Vesta Pastoressa Work Phone: Start: 11-12-2019 Hepatic function panel Vesta Pastoressa Work Phone: Start: 11-12-2019 MANUAL DIFFERENTIAL Ibis valentine Pastoressa Work Phone: Start: 11-11-2019 Assay of magnesium Desirae ssa Pastoressa Work Phone: Start: 11-11-2019 Assay of phosphorus inorganic Vesta Pastoressa Work Phone: Start: 11-11-2019 Basic metabolic pane l calcium total Vesta Pastoressa Work Phone: Start: 11-11-2019 Blood count complete auto&auto difrntl wbc Vesta Pastoressa Work Phone: Start: 11-11-2019 Hepatic function panel Vesta Pastoressa Work Phone: Start: 11-10-2019 Radiologic exam abdo men 1 view Merlin Harrison Work Phone: Start: 11-10-2019 Assay of magnesium Desirae ssa Pastoressa Work Phone: Start: 11-10-2019 Assay of phosphorus inorganic Vesta Pastoressa Work Phone: Start: 11-10-2019 Basic metabolic pane l calcium total Vesta Pastoressa Work Phone: Start: 11-10-2019 Blood count complete auto&auto difrntl wbc Vesta Pasttiosa Work Phone: Start: 11-10-2019 Calcium ionized Gwendol yn Linda Work Phone: Start: 11-10-2019 Hepatic function panel Vesta Pastoressa Work Phone: Start: 11-10-2019 MANUAL DIFFERENTIAL Gwe ndolyn Linda Work Phone: Start: 11-09-2019 Radiologic exam abdo men 1 view Vesta Pasttiosa Work Phone: Start: 11-09-2019 Assay of magnesium Desirae ssa Pastoressa Work Phone: Start: 11-09-2019 Assay of phosphorus inorganic Vesta Pastoressa Work Phone: Start: 11-09-2019 Basic metabolic pane l calcium total Vesta Pastoressa Work Phone: Start: 11-09-2019 Blood count complete auto&auto difrntl wbc Vesta Pasttiosa Work Phone: Start: 11-09-2019 Hepatic function panel Vesta Pasttiosa Work Phone: Start: 11-08-2019 OPERATIVE REPORT 3m Sca nning Start: 11-08-2019 BRIAN STUDIO 3 Ruben Legerhank Work Phone: Start: 11-08-2019 Assay of urine sodium J dipesh Stanley Wells Work Phone: Start: 11-08-2019 Creatinine other source Yovany Stanley Russell Work Phone: Start: 11-08-2019 Radiologic exam abdo men 1 view Vesta Koehler Work Phone: Start: 11-08-2019 Ecg routine ecg w/le ast 12 lds w/i&r German Patricia Work Phone: Start: 11-08-2019 Blood typing serolog ic abo Merlin Harrison Work Phone: Start: 11-08-2019 Assay of magnesium Desirae leanne Pastalex Work Phone: Start: 11-08-2019 Assay of phosphorus inorganic Vesta Pastalex Work Phone: Start: 11-08-2019 Basic metabolic pane l calcium total Vesta Pasttiosa Work Phone: Start: 11-08-2019 Blood count complete auto&auto difrntl wbc Vesta Pasttiosa Work Phone: Start: 11-08-2019 Hepatic function panel Vesta Pasttiosa Work Phone: Start: 11-08-2019 MANUAL DIFFERENTIAL Jhon rice B Roverto Work Phone: Start: 11-07-2019 Radex small intestin e w/multiple serial images Vesta Pasttiosa Work Phone: Start: 11-07-2019 Assay of magnesium Desirae ssa Pasttoisa Work Phone: Start: 11-07-2019 Assay of phosphorus inorganic Vesta Pastoressa Work Phone: Start: 11-07-2019 Basic metabolic pane l calcium total Vesta Koehler Work Phone: Start: 11-07-2019 Blood count complete auto&auto difrntl wbc Vesta Koehler Work Phone: Start: 11-07-2019 Calcium ionized Gwendol yn Linda Work Phone: Start: 11-07-2019 Hepatic function panel Vesta Koehler Work Phone: Start: 11-07-2019 MANUAL DIFFERENTIAL Gwe ndolyn Linda Work Phone: Start: 11-06-2019 Radiologic exam abdo men 1 view Vesta Koehler Work Phone: Start: 11-06-2019 End: 11-06-2019 Radiologic exam abdomen 1 view Vesta Koehler Work Phone: Start: 11-06-2019 Radiologic exam abdo men 1 view Vesta Koehler Work Phone: Start: 11-06-2019 Assay of magnesium Desirae Koehler Work Phone: Start: 11-06-2019 Assay of phosphorus inorganic Vesta Koehler Work Phone: Start: 11-06-2019 Basic metabolic pane l calcium total Vesta Koehler Work Phone: Start: 11-06-2019 Blood count complete auto&auto difrntl wbc Vesta Koehler Work Phone: Start: 11-06-2019 Hepatic function panel Vesta Pastaelx Work Phone: Start: 11-06-2019 MANUAL DIFFERENTIAL Jhon rice B Roverto Work Phone: Start: 11-06-2019 Procalcitonin (pct) Romelia ek Patricia Work Phone: Start: 11-05-2019 CT ABDOMEN PELVIS W CONTRAST Walkercamacho Cruz Work Phone: Start: 11-05-2019 Radiologic exam abdo men 1 view Vesta Pastalex Work Phone: Start: 11-05-2019 Radiologic exam ches t single view Senyo Agidi Work Phone: Start: 11-05-2019 Assay of magnesium Desirae leanne Koehler Work Phone: Start: 11-05-2019 Assay of phosphorus inorganic Vesta Pastalex Work Phone: Start: 11-05-2019 Basic metabolic pane l calcium total Vesta Pastalex Work Phone: Start: 11-05-2019 Blood count complete auto&auto difrntl wbc Vesta Pastalex Work Phone: Start: 11-05-2019 MANUAL DIFFERENTIAL Jhon rice B Roverto Work Phone: Start: 11-04-2019 Assay of triglycerides Vesta Koehler Work Phone: Start: 11-04-2019 Hepatic function panel Vesta Koehler Work Phone: Start: 11-04-2019 Radiologic exam abdo men 1 view Vesta Koehler Work Phone: Start: 11-04-2019 Assay of magnesium Desirae leanne Koehler Work Phone: Start: 11-04-2019 Assay of phosphorus inorganic Vesta Koehler Work Phone: Start: 11-04-2019 Basic metabolic pane l calcium total Vesta Pastalex Work Phone: Start: 11-04-2019 Blood count complete auto&auto difrntl wbc Vesta Koehler Work Phone: Start: 11-04-2019 Calcium ionized Gwendol yn Mckeon Work Phone: Start: 11-04-2019 MANUAL DIFFERENTIAL Gwe ndolyn Synqera Work Phone: Start: 11-04-2019 Procalcitonin (pct) Gwe ndsherleyn Synqera Work Phone: Start: 11-03-2019 Blood count hemoglobin Senyo Agidi Work Phone: Start: 11-03-2019 Radiologic exam ches t single view Senyo Agidi Work Phone: Start: 11-03-2019 Assay of magnesium Desirae leanne Pastalex Work Phone: Start: 11-03-2019 Assay of phosphorus inorganic Vesta Koehler Work Phone: Start: 11-03-2019 Basic metabolic pane l calcium total Vesta Koehler Work Phone: Start: 11-03-2019 Blood count complete auto&auto difrntl wbc Vesta Koehler Work Phone: Start: 11-03-2019 MANUAL DIFFERENTIAL Jhon sin Layne Work Phone: Start: 11-02-2019 Radiologic exam abdo men 1 view Walker Cruz Work Phone: Start: 11-02-2019 Assay of magnesium Desirae leanne Koehler Work Phone: Start: 11-02-2019 Assay of phosphorus inorganic Vesta Koehler Work Phone: Start: 11-02-2019 Assay of triglycerides Carol Mckeon Work Phone: Start: 11-02-2019 Basic metabolic pane l calcium total Vesta Koehler Work Phone: Start: 11-02-2019 Blood count complete auto&auto difrntl wbc Vesta Koehler Work Phone: Start: 11-02-2019 Calcium ionized Gwendol yn Linda Work Phone: Start: 11-02-2019 Hepatic function panel Carol Linda Work Phone: Start: 11-02-2019 MANUAL DIFFERENTIAL Gwe ndolyn Linda Work Phone: Start: 11-02-2019 Procalcitonin (pct) Sen yo Agidi Work Phone: Start: 11-01-2019 ADD ON LAB TEST Gwendol yn Linda Work Phone: Start: 11-01-2019 Radiologic exam abdo men 1 view Marchristiano Ali Work Phone: Start: 11-01-2019 Thoracentesis for aspiration Senyo Agidi Work Phone: Start: 11-01-2019 Radiologic exam ches t single view Senyo Agidi Work Phone: Start: 11-01-2019 Assay of lactate Senyo Agidi Work Phone: Start: 11-01-2019 Assay of magnesium Desirae ssa Pastoressa Work Phone: Start: 11-01-2019 Assay of phosphorus inorganic Matteo B Roverto Work Phone: Start: 11-01-2019 Basic metabolic pane l calcium total Vesta Pastoressa Work Phone: Start: 11-01-2019 Blood count complete auto&auto difrntl wbc Vesta Pastoressa Work Phone: Start: 11-01-2019 Drug screen quantita tive vancomycin Senyo Agidi Work Phone: Start: 11-01-2019 MANUAL DIFFERENTIAL Jhon rice B Roverto Work Phone: Start: 11-01-2019 Procalcitonin (pct) Jhon rice B Roverto Work Phone: Start: 10-31-2019 Culture bacterial quanttative colony count urine Joby Landry Work Phone: Start: 10-31-2019 Urnls dip stick/tabl et rgnt auto w/o microscopy Joby Landry Work Phone: Start: 10-31-2019 Radiologic exam abdo men 1 view Marwan Ali Work Phone: Start: 10-31-2019 Radiologic exam ches t single view Senyo Agidi Work Phone: Start: 10-31-2019 Assay of magnesium Fabr ice B Roverto Work Phone: Start: 10-31-2019 Assay of phosphorus inorganic Matteo B Roverto Work Phone: Start: 10-31-2019 Basic metabolic pane l calcium total Vesta Pastoressa Work Phone: Start: 10-31-2019 Blood count complete auto&auto difrntl wbc Vesta Pastoressa Work Phone: Start: 10-31-2019 Blood smear peripher al interp phys w/writ report Brionna Ya Work Phone: Start: 10-31-2019 MANUAL DIFFERENTIAL Jhon sin Bayron Layne Work Phone: Start: 10-31-2019 Prothrombin time Stephe n Subichin Work Phone: Start: 10-30-2019 Blood count hemoglobin Joby Subichin Work Phone: Start: 10-30-2019 Radiologic exam abdo men 1 view Carlos Albertokari Thompson Work Phone: Start: 10-30-2019 Level iv surg pathol ogy gross&microscopic exam Matteohumberto Layne Work Phone: Start: 10-30-2019 Blood count hemoglobin Carlos Alberto Thompson Work Phone: Start: 10-30-2019 Thromboplastin time partial plasma/whole blood Joby Subichin Work Phone: Start: 10-30-2019 Echo tthrc r-t 2d w/wom-mode compl spec&colr d Senyo Agidi Work Phone: Start: 10-30-2019 End: 10-30-2019 TRANSFUSE RED BLOOD CELLS Joby Stanley in Work Phone: Start: 10-30-2019 Radiologic exam ches t single view Joby Subichin Work Phone: Start: 10-30-2019 Ct abdomen & pelvis w/o contrast material Briin Ali Work Phone: Start: 10-30-2019 Assay of lactate Stephe n Subichin Work Phone: Start: 10-30-2019 Thromboplastin time partial plasma/whole blood Joby Subichin Work Phone: Start: 10-30-2019 Pulmonary ventilatio n & perfusion imaging Joby Subichin Work Phone: Start: 10-30-2019 Assay of troponin quantitative Joby Subichin Work Phone: Start: 10-30-2019 Basic metabolic pane l calcium total Vesta Koehler Work Phone: Start: 10-30-2019 Blood count complete auto&auto difrntl wbc Vesta Koehler Work Phone: Start: 10-30-2019 Hepatic function panel Matteo Layne Work Phone: Start: 10-30-2019 MANUAL DIFFERENTIAL Jhon Layne Work Phone: Start: 10-30-2019 Procalcitonin (pct) Jhon Layne Work Phone: Start: 10-30-2019 Thromboplastin time partial plasma/whole blood Joby Landry Work Phone: Start: 10-29-2019 Culture bacterial bl ood aerobic w/id isolates Joby Landry Work Phone: Start: 10-29-2019 Assay of troponin quantitative Joby Landry Work Phone: Start: 10-29-2019 Basic metabolic pane l calcium total Joby Landry Work Phone: Start: 10-29-2019 Blood typing serolog ic abo Matteo Layne Work Phone: Start: 10-29-2019 CULTURE, BLOOD 1 Ye Landry Work Phone: Start: 10-29-2019 Fibrin dgradj produc ts d-dimer quantitative Joby Landry Work Phone: Start: 10-29-2019 Radiologic exam ches t single view Joby Landry Work Phone: Start: 10-29-2019 Ecg routine ecg w/le ast 12 lds w/i&r Joby Landry Work Phone: Start: 10-29-2019 Blood count hemoglobin Matteo Layne Work Phone: Start: 10-29-2019 TRANSFUSE RED BLOOD CELLS Matteo Layne Work Phone: Start: 10-29-2019 Basic metabolic pane l calcium total Vesta Koehler Work Phone: Start: 10-29-2019 Blood count complete auto&auto difrntl wbc Vesta Koehler Work Phone: Start: 10-29-2019 MANUAL DIFFERENTIAL Jhon rice Bayron Layne Work Phone: Start: 10-28-2019 Radiologic exam abdo men 1 view Matteo B Roverto Work Phone: Start: 10-28-2019 Level iv surg pathol ogy gross&microscopic exam Cam Finn Work Phone: Start: 10-21-2019 ADD ON LAB TEST Isabelle R Lopez Work Phone: Start: 10-21-2019 Basic metabolic pane l calcium total Isabelle R Lopez Work Phone: Start: 10-21-2019 Blood count complete auto&auto difrntl wbc Isabelle R Lopez Work Phone: Start: 10-21-2019 Blood typing serolog ic abo Isabelle R Lopez Work Phone: Start: 10-21-2019 MANUAL DIFFERENTIAL Sta cey R Lopez Work Phone: Start: 06-17-2019 Blood count hemoglobin Ryley Bedolla MD Work Phone: Plan of Treatment Date Care Activity Detail Author Start: 06-11-2025 Screening for malign ant neoplasm of colon [facility] Start: 01-20-2023 Influenza vaccination INFLUENZ A (Season Ended) [facility] Start: 05-22-2022 ADVANCE DIRECTIVE DISCUSSION ADVANCE DIRECTIVE DISCUSSION [facility] Start: 05-22-2022 DEPRESSION ASSESSMENT DEPRESSION ASS ESSMENT [facility] Start: 03-09-2022 End: 03-09-2022 Telemedicine consultation with patient 03/09/2022 Telemedicine Urology Cam Finn MD [address] [place] [address] [facility] Start: 01-20-2022 Influenza vaccination [facility] Start: 12-20-2021 End: 12-20-2021 Patient encounter procedure 12/20/2021 Appointment General Surgery Benigno Heath MD [address], [address] [place] [address] [facility] Start: 02-03-2021 End: 02-03-2021 Patient encounter procedure 02/03/2021 Office Visit UrologCam Biswas MD 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 [place] [address] [phone] [facility] Start: 06-25-2020 End: 06-25-2020 Office Visit [facility] Start: 06-11-2020 End: 06-11-2020 Appointment 06/11/2020 Appointment General Surgery Vicky Storey MD [address] [place] [address] [phone] [facility] Start: 06-10-2020 End: 06-10-2020 Office Visit 06/10/2020 Office Visit Urology Cam Finn MD 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 [place] [address] [facility] General Surgery Start: 07-02-2019 End: 07-02-2019 Evaluation and management of inpatient 07/02/2019 Office Visit Urology Cam Finn MD [address] [place] [address] [facility] Start: 07-02-2019 End: 07-02-2019 Patient encounter procedure 07/02/2019 Office Visit Gynecologic Oncology Jess Ramsey PA [address] [place] [phone] [facility]FF WORK[facility] On[facility] Start: 06-17-2019 End: 06-17-2019 Patient encounter procedure 06/17/2019 Appointment General Surgery Anshul Salinas MD [address] [facility] [place] [address] [phone] [facility] General Surgery Start: 06-11-2019 End: 06-11-2019 Patient encounter procedure 06/11/2019 Office Visit Urology Cam Finn MD [address] [place] [address] [phone] [facility] Start: 06-04-2019 Annual Wellness Visi t (AWV) Annual Wellness Visit (AWV) [facility] Work Phone: Start: 2019 BONE DENSITY BONE DENSITY [facility] Start: 2019 DEXA (modify frequen cy per FRAX score) DEXA (modify frequency per FRAX score) [facility] Work Phone: Start: 2019 Pneumococcal 65+ yea rs Vaccine (1 of 1 - PPSV23) Pneumococcal 65+ years Vaccine (1 of 1 - PPSV23) [facility] Work Phone: Start: 2019 Pneumococcal 65+ yrs at Risk Vaccine (1 of 2 - PCV13) Pneumococcal 65+ yrs at Risk Vaccine (1 of 2 - PCV13) [place] Start: 01-20-2019 Influenza vaccination Flu vaccine (# 1) [facility] Work Phone: Start: 2009 Screening for osteoporosis DEXA (modify frequency per FRAX score) [facility] Start: 2004 Breast cancer screen Breast cancer s creen [facility] Work Phone: Start: 2004 Colon cancer screen colonoscopy Colon cancer screen colonoscopy [facility] Work Phone: Start: 2004 Screening for malign ant neoplasm of breast Breast cancer screen [facility] Start: 2004 Screening for malign ant neoplasm of colon Colon cancer screen colonoscopy [place], [place] Start: 2004 Shingles Vaccine (1 of 2) Shingles Vaccine (1 of 2) [facility] Start: 2004 SHINGRIX VACCINE (1 of 2) SHINGRIX VACCINE (1 of 2) [facility] Start: 1999 COLOGUARD (FIT-DNA) COLOGUARD (FIT-D NA) [facility] Start: 1999 Colonoscopy COLONOSCOPY [facility] Start: 1999 COLORECTAL CANCER SCREENING COLORECTAL CANCER SCREENING [facility] Start: [address] COLONOGRAPHY [facility] Start: 1999 DIABETES SCREEN DIABETES SCREEN [facility] Start: 1999 FECAL OCCULT BLOOD FECAL OCCULT BLOO D [facility] Start: 1999 LIPID SCREEN LIPID SCREEN [facility] Start: 1999 Screening for malign ant neoplasm of colon [facility] Start: 1999 SIGMOIDOSCOPY SIGMOIDOSCOPY [facility] Start: 1994 Lipid panel [facility] Start: 1994 Lipid screen Lipid screen [facility] Work Phone: Start: 1994 Mammography MAMMOGRAM [facility] Start: 1975 Cervical cancer screen Cervical canc er screen [facility] Work Phone: Start: 1975 Screening for malign ant neoplasm of cervix Cervical cancer screen [place], [place] Start: 1973 DTaP/Tdap/Td vaccine (1 - Tdap) DTaP/Tdap/Td vaccine (1 - Tdap) [facility] Start: 1973 Urine microalbumin profile DTAP,TDAP,TD (1 - Tdap) [facility] Start: 1972 Hepatitis C screening Hepatitis C [facility] Start: 1972 HEPATITIS C SCREENING HEPATITIS C [facility] Start: 1969 HIV screen HIV screen [facility] Work Phone: Start: 1969 HIV screening HIV screen [place], [place] Start: 1966 COVID-19 Vaccine (1) COVID-19 Vaccin e (1) [facility] Work Phone: Start: 1966 Depression Screen Depression Screen [facility] Start: 1965 DTaP/Tdap/Td vaccine (1 - Tdap) DTaP/Tdap/Td vaccine (1 - Tdap) [facility] Work Phone: Start: 1960 Pneumococcal 65+ yea rs Vaccine (1 - PCV) Pneumococcal 65+ years Vaccine (1 - PCV) [facility] Start: 1960 PNEUMOCOCCAL: 65+ (1 - PCV) PNEUMOCOCCAL: 65+ (1 - PCV) [facility] Start: 1954 COVID-19 Vaccine (#1) COVID-19 Vacci ne (#1) [facility] Start: 1954 Annual Wellness Visi t (AWV) Annual Wellness Visit (AWV) [facility] Start: 1954 Hepatitis C screen Hepatitis C kathleene n [facility] Work Phone: Start: 1954 Hepatitis C screening Hepatitis C sc reen [place], [place] aPTT Coag (Bld) [Time] APTT Lab Timed 10/30/2019 3:22 AM EDT [place] Basic metabolic 2000 panel [place] Comment on above: Daily until disconti nued starting 10/29/2019, 15 completed Daily until disconti nued starting 11/17/2019, 3 completed Daily until disconti nued starting 10/28/2020, 6 completed Basic Metabolic Pane l w/ Reflex to MG Basic Metabolic Panel w/ Reflex to MG Lab Routine Daily until discontinued starting 01/02/2021, 3 completed [facility] Work Phone: Comment on above: Daily until disconti nued starting 01/02/2021, 3 completed End: 06-11-2020 Blood glucose - POCT Blood glucose - POCT Point of Care Testing STAT One Time for 1 Occurrences starting 06/11/2020 until 06/11/2020 [place] Comment on above: One Time for 1 Occur rences starting 06/11/2020 until 06/11/2020 End: 06-17-2019 Blood glucose - POCT Blood glucose - POCT Point of Care Testing STAT One Time for 1 Occurrences starting 06/17/2019 until 06/17/2019 [facility] Work Phone: Comment on above: One Time for 1 Occur rences starting 06/17/2019 until 06/17/2019 Blood glucose - POCT Blood gluco se - POCT Point of Care Testing STAT As Needed until discontinued starting 12/20/2021 [facility] Work Phone: Comment on above: As Needed until disc ontinued starting 12/20/2021 End: 10-30-2019 CBC CBC Lab Routine One Time for 1 Occurrences starting 10/30/2019 until 10/30/2019 [facility] [place] Comment on above: One Time for 1 Occur rences starting 10/30/2019 until 10/30/2019 CBC [facility] Comment on above: Daily until disconti nued starting 11/17/2019, 3 completed CBC Auto Differential [facility] [place] Comment on above: Daily until disconti nued starting 10/29/2019, 15 completed Daily until disconti nued starting 10/28/2020, 6 completed Daily until disconti nued starting 01/02/2021, 3 completed End: 11-16-2019 Comprehensive metabolic 2000 panel Comprehensive Metabolic Panel Lab Routine One Time for 1 Occurrences starting 11/16/2019 until 11/16/2019 [facility] Comment on above: One Time for 1 Occur rences starting 11/16/2019 until 11/16/2019 Comprehensive metabo lic 2000 panel Comprehensive Metabolic Panel Lab Routine 11/16/2019 3:50 AM EDT [facility] [place] End: 10-30-2019 Creatinine (U) [Mass/Vol] Creatinine, Random Urine Lab Add-On One Time for 1 Occurrences starting 10/30/2019 until 10/30/2019 [facility] Comment on above: One Time for 1 Occur rences starting 10/30/2019 until 10/30/2019 End: 06-11-2020 Creatinine [Mass/Vol] Creatinine, serum Lab STAT One Time for 1 Occurrences starting 06/11/2020 until 06/11/2020 [facility] [place] Comment on above: One Time for 1 Occur rences starting 06/11/2020 until 06/11/2020 End: 06-17-2019 Creatinine [Mass/volume] in Serum or Plasma Creatinine, serum Lab STAT One Time for 1 Occurrences starting 06/17/2019 until 06/17/2019 [facility] Work Phone: Comment on above: One Time for 1 Occur rences starting 06/17/2019 until 06/17/2019 End: 12-20-2021 Creatinine [Mass/volume] in Serum or Plasma Creatinine, serum Lab STAT One Time for 1 Occurrences starting 12/20/2021 until 12/20/2021 [facility] Work Phone: Comment on above: One Time for 1 Occur rences starting 12/20/2021 until 12/20/2021 EKG 12 Lead EKG 12 Lead ECG Routine 05/25/2020 1:45 PM EST [facility] EKG 12 Lead EKG 12 Lead ECG Routine 12/13/2021 11:27 AM EDT [facility] [employer] Work Phone: Hemoglobin and Hematocrit, Blood [place] Comment on above: Post Transfusion Pos t Transfusion Post Transfustion for 1 Occurrences starting 11/16/2019 Hepatic Function Panel [place] Comment on above: Weekly until discont inued starting 11/04/2019, 1 completed Daily until disconti nued starting 11/06/2019, 7 completed HHN Treatment [place] Comment on above: 0800, 1200, 1600, 20 00 (respiratory use only) until discontinued starting 10/30/2019 TID until discontinu ed starting 11/04/2019 Incentive spirometry Incentive s pirometry Respiratory Care Routine Q1H PRN until discontinued starting 06/17/2019 [facility] Work Phone: Comment on above: Q1H PRN until discon tinued starting 06/17/2019 Initiate Oxygen Ther apy Protocol [facility] Work Phone: Comment on above: Daily until disconti nued starting 10/28/2019 Daily until disconti nued starting 11/16/2019 Daily until disconti nued starting 06/17/2019 End: 12-20-2021 INITIATE PACU OXYGEN THERAPY PROTOCOL Initiate PACU Oxygen Therapy Protocol Respiratory Care Routine Continuous until discontinued starting 12/20/2021 [facility] Work Phone: Comment on above: Continuous until dis continued starting 12/20/2021 End: 06-11-2020 Intermittent pulse oximetry Pulse Oximetry Spot Check Respiratory Care Routine One Time for 1 Occurrences starting 06/11/2020 until 06/11/2020 [facility] [place] Comment on above: One Time for 1 Occur rences starting 06/11/2020 until 06/11/2020 Intermittent pulse oximetry Pulse Oximetry Spot Check Respiratory Care Routine Every 4hr until discontinued starting 01/01/2021 [facility] Work Phone: Comment on above: Every 4hr until disc ontinued starting 01/01/2021 End: 12-20-2021 Intermittent pulse oximetry Pulse Oximetry Spot Check Respiratory Care Routine One Time for 1 Occurrences starting 12/20/2021 until 12/20/2021 [employer] Work Phone: Comment on above: One Time for 1 Occur rences starting 12/20/2021 until 12/20/2021 Magnesium [Mass/Vol] [facility] Comment on above: Daily until disconti nued starting 11/01/2019, 12 completed Daily until disconti nued starting 11/17/2019, 4 completed Daily until disconti nued starting 10/31/2020, 3 completed Daily until disconti nued starting 01/02/2021, 3 completed MDI Treatment MDI Treatment Respiratory Care Routine (respiratory use only) until discontinued starting 10/30/2019 [facility] above: (respirato ry use only) until discontinued starting 10/30/2019 Nasal Cannula Oxygen Nasal Cannu la Oxygen Respiratory Care Routine As Needed until discontinued starting 12/20/2021 [facility] Work Phone: Comment on above: As Needed until disc ontinued starting 12/20/2021 Nasal Cannula Oxygen Nasal Cannu la Oxygen Respiratory Care Routine As Needed until discontinued starting 12/20/2021 [facility] Work Phone: Comment on above: As Needed until disc ontinued starting 12/20/2021 Nonrebreather mask oxygen Nonrebreather mask oxygen Respiratory Care Routine As Needed until discontinued starting 12/20/2021 [facility] Work Phone: Comment on above: As Needed until disc ontinued starting 12/20/2021 Nonrebreather mask oxygen Nonrebreather mask oxygen Respiratory Care Routine As Needed until discontinued starting 12/20/2021 [facility] Work Phone: Comment on above: As Needed until disc ontinued starting 12/20/2021 Oxygen therapy [[facility] Data Set] [facility] above: Daily until disconti nued starting 06/11/2020 Daily until disconti nued starting 10/28/2020 Daily until disconti nued starting 01/01/2021 Oxygen therapy [Mini [facility] Data Set] Initiate Oxygen Therapy Protocol Respiratory Care Routine As Needed until discontinued starting 12/20/2021 [facility] Work Phone: Comment on above: As Needed until disc ontinued starting 12/20/2021 Phase I & II - meter ed glucose [facility] Work Phone: Comment on above: As Needed until disc ontinued starting 06/11/2020 As Needed until disc ontinued starting 06/17/2019 [facility]ate [facility]Mass/Vol] [facility]: Daily until disconti nued starting 11/02/2019, 11 completed Daily until disconti nued starting 11/17/2019, 4 completed Daily until disconti nued starting 10/31/2020, 3 completed Daily until disconti nued starting 01/02/2021, 3 completed Platelets (Bld) [#/Vol] Platelet count Lab Routine Every Other Day until discontinued starting 11/01/2019 [facility] above: Every Other Day unti l discontinued starting 11/01/2019 End: 06-11-2020 Potassium w/ Reflex to Magnesium Potassium w/ Reflex to Magnesium Lab Routine One Time for 1 Occurrences starting 06/11/2020 until 06/11/2020 [facility] Comment on above: One Time for 1 Occur rences starting 06/11/2020 until 06/11/2020 End: 06-17-2019 Potassium w/ Reflex to Magnesium Potassium w/ Reflex to Magnesium Lab Routine One Time for 1 Occurrences starting 06/17/2019 until 06/17/2019 [facility] Work Phone: Comment on above: One Time for 1 Occur rences starting 06/17/2019 until 06/17/2019 End: 12-20-2021 Potassium w/ Reflex to Magnesium Potassium w/ Reflex to Magnesium Lab Routine One Time for 1 Occurrences starting 12/20/2021 until 12/20/2021 [facility] Work Phone: Comment on above: One Time for 1 Occur rences starting 12/20/2021 until 12/20/2021 End: 06-11-2020 , urine , urine Lab STAT One Time for 1 Occurrences starting 06/11/2020 until 06/11/2020 [facility] [place] Comment on above: One Time for 1 Occur rences starting 06/11/2020 until 06/11/2020 End: 06-17-2019 , urine , urine Lab STAT One Time for 1 Occurrences starting 06/17/2019 until 06/17/2019 [facility] Work Phone: Comment on above: One Time for 1 Occur rences starting 06/17/2019 until 06/17/2019 End: 12-20-2021 , urine POCT , urine POCT Point of Care Testing Routine One Time for 1 Occurrences starting 12/20/2021 until 12/20/2021 [facility] Work Phone: Comment on above: One Time for 1 Occur rences starting 12/20/2021 until 12/20/2021 End: 11-04-2019 Procalcitonin Procalcitonin Lab Add-On One Time for 1 Occurrences starting 11/04/2019 until 11/04/2019 [facility] [place] Comment on above: One Time for 1 Occur rences starting 11/04/2019 until 11/04/2019 End: 11-16-2019 Procalcitonin Procalcitonin Lab Add-On One Time for 1 Occurrences starting 11/16/2019 until 11/16/2019 [facility] [place] Comment on above: One Time for 1 Occur rences starting 11/16/2019 until 11/16/2019 End: 06-11-2020 Protime-INR Protime-INR Lab STAT One Time for 1 Occurrences starting 06/11/2020 until 06/11/2020 [facility] [place] Comment on above: One Time for 1 Occur rences starting 06/11/2020 until 06/11/2020 End: 06-17-2019 Protime-INR Protime-INR Lab STAT One Time for 1 Occurrences starting 06/17/2019 until 06/17/2019 [facility] Work Phone: Comment on above: One Time for 1 Occur rences starting 06/17/2019 until 06/17/2019 End: 12-20-2021 Protime-INR Protime-INR Lab STAT One Time for 1 Occurrences starting 12/20/2021 until 12/20/2021 [facility] Work Phone: Comment on above: One Time for 1 Occur rences starting 12/20/2021 until 12/20/2021 End: 06-17-2019 Pulse Oximetry Spot Check Pulse Oximetry Spot Check Respiratory Care Routine One Time for 1 Occurrences starting 06/17/2019 until 06/17/2019 [facility] Work Phone: Comment on above: One Time for 1 Occur rences starting 06/17/2019 until 06/17/2019 End: 09-15-2023 Radiologic exam abdomen 2 views XR ABDOMEN 2V ROUTINE SUPINE W UPRIGHT/DECUB/CTL Radiology Routine Kidney stones Hematuria, unspecified type 1 Occurrences starting 08/16/2022 until 09/15/2023 [facility] Work Phone: Comment on above: 1 Occurrences starti ng 08/16/2022 until 09/15/2023 End: 08-16-2022 Radiologic exam abdomen 2 views [facility] Work Phone: Comment on above: 1 Occurrences starti ng 08/16/2022 until 08/16/2022 Spirometry panel [facility] [place] Comment on above: Q1H PRN until discon tinued starting 06/11/2020 Every 1hr while awak e until discontinued starting 01/01/2021 Spirometry panel Incentive huang metry Respiratory Care Routine Q1H PRN until discontinued starting 12/20/2021 [facility] Work Phone: Comment on above: Q1H PRN until discon tinued starting 12/20/2021 End: 10-30-2020 Surgical Pathology Surgical Pathology Lab Routine Once for 1 Occurrences starting 10/30/2020 until 10/30/2020 [facility] Work Phone: Comment on above: Once for 1 Occurrenc es starting 10/30/2020 until 10/30/2020 Surgical Pathology Surgical Path ology Lab Routine 10/30/2020 5:23 PM EDT [facility] Work Phone: Triglyceride [Mass/Vol] [facility] Comment on above: Weekly until discont inued starting 11/04/2019, 1 completed End: 10-28-2019 Wound ostomy eval and treat Wound ostomy eval and treat Wound Ostomy Routine One Time for 1 Occurrences starting 10/28/2019 until 10/28/2019 [facility] Comment on above: One Time for 1 Occur rences starting 10/28/2019 until 10/28/2019 End: 11-16-2019 Wound ostomy eval and treat Wound ostomy eval and treat Wound Ostomy Routine One Time for 1 Occurrences starting 11/16/2019 until 11/16/2019 [facility] Comment on above: One Time for 1 Occur rences starting 11/16/2019 until 11/16/2019 End: 09-16-2023 XR ABDOMEN 1V SUPINE XR ABDOMEN 1V SUPINE Radiology Routine Kidney stones 1 Occurrences starting 08/17/2022 until 09/16/2023 [facility] Work Phone: Comment on above: 1 Occurrences starti ng 08/17/2022 until 09/16/2023 Payers Date Payer Category Payer Self-pay 2019 Medicare MEDICARE MEDICAR E PART A AND B xxxxxxxxxxx 2019-Present [phone] [place] [address] xxxxxxxxxxx [id number] 2019 Medicare [id number] 2019 Medicare MEDICARE MEDICAR E A AND B [id number] 2019-Present [phone] [place] [address] Medicare [id number] 1954 Unknown [id number] 1955 Unknown [id number] 1955 Unknown [id number] Unknown [id number] Social History Date Type Detail Facility Start: 10-21-2019 End: 08-16-2022 Tobacco smoking status NHIS [facility] use Cigarette Smoker [facility] [employer] Work Phone: Start: 10-21-2019 End: 08-16-2022 Cigarettes smoked current (pack per day) - Reported [employer] Work Phone: Start: 10-21-2019 End: 12-20-2021 Alcohol intake Ex-drinker (finding) [employer] Work Phone: Start: 1955 Sex Assigned At Not on file [facility] Work Phone: Exposure to SARS-CoV -2 (event) Unable to assess [employer] Start: 05-25-2020 End: 11-11-2020 Tobacco smoking status NHIS Former smoker [employer] Start: 05-25-2020 End: 08-16-2022 Tobacco use and exposure Never used [employer] Start: 05-25-2020 Tobacco Comment quit 1 month ago [facility] [employer] Start: 12-03-2021 End: 12-20-2021 Exposure to SARS-CoV-2 (event) Not sure [employer] Start: 11-11-2020 End: 12-13-2021 Tobacco Comment 2 cigarettes weekly [employer] Work Phone: Start: 08-16-2022 Alcohol intake Lifetime non-d tomy (finding) [facility] Clinical Notes 06-17-2019 to 02-11-2023 Telephone Encounter - Vinayak Rodriguez MD - 08/25/2022 11:46 AM EDTTelephone Encounter - Scar Yuan APRN.CNP - 08/17/2022 11:51 AM EDTAlexRT Lizz(R) - 08/16/2022 5:00 PM EDTAttachments Note Date & Type Note Facility 02-11-2023 Note [facility] PROGRESS NOTE NAME ACCOUNT SEX AGE ADMIT DISCHARGE PT MED. RECORD# NUMBER DATE DATE TYPE LINDA KIM [id number] F 67 01/27/23 1 [id number] ROOM: 310 DATE OF : 1955 DICTATING PHYSICIAN: Joe Husain DATE OF SERVICE: January 28, 2023 SUBJECTIVE: She was admitted early January 27, 2023 and visitation was on January 27. She is still having some nausea, but she thinks that she is doing fairly well otherwise. She does not think she is at the stage where she thinks she needs an NG tube. OBJECTIVE: VITAL SIGNS: Stable. Exam reveals no significant tenderness. Bowel sounds are present. EXTREMITIES: No edema. ASSESSMENT/PLAN: Bowel obstruction, status post previous abdominal surgery. The patient has had this recurrently and appeared to be stable from that point of view. We will continue to monitor. Dictated By: Joe Husain MD 01/28/23 09:40 JOB #: [id number] Transcribed By: [facility] 01/28/23 20:46 Electronically signed by: E-Sign: JOE HUSAIN MD 02/11/23 11:51 Page 1 of 2 LINDA KIM Progress Note [facility] 02-11-2023 Note [facility] PROGRESS NOTE NAME ACCOUNT SEX AGE ADMIT DISCHARGE PT MED. RECORD# NUMBER DATE DATE TYPE LINDA KIM [id number] F 67 01/27/23 1 [id number] ROOM: 310 DATE OF : 1955 DICTATING PHYSICIAN: Joe Husain DATE OF SERVICE: January 28, 2023 SUBJECTIVE: Mrs. Kim did not have a bowel movement but she has had active bowel sounds. OBJECTIVE: VITAL SIGNS: She is afebrile. Blood pressure 169/84. HEENT: Unremarkable. NECK: Supple. LUNGS: Clear. HEART: Regular. ABDOMEN: Active bowel sounds. EXTREMITIES: No edema. DIAGNOSTIC DATA: Lab data; white count of 5.5, hemoglobin 13.7, BUN 10, creatinine 0.79. ASSESSMENT: Partial bowel obstruction, improving at this point slowly. PLAN: The patient will be initiated on diet as tolerated. I did order regular diet but I explained to her she can choose whatever she thinks she can keep down. She is not nauseous and her pain is improving and she will try to do that. Dictated By: Joe Husain MD 01/28/23 21:41 JOB #: [id number] Transcribed By: nelly 01/29/23 07:53 Electronically signed by: E-Sign: JOE HUSAIN MD 02/11/23 11:51 Page 1 of 2 LINDA KIM Progress Note LINDA KIM : 1955 Page 2 of 2 LINDA KIM Progress Note [facility] 02-11-2023 Note [facility] PROGRESS NOTE NAME ACCOUNT SEX AGE ADMIT DISCHARGE PT MED. RECORD# NUMBER DATE DATE TYPE LINDA KIM [id number] F 67 01/27/23 1 [id number] ROOM: 310 DATE OF : 1955 DICTATING PHYSICIAN: Joe Husain DATE OF SERVICE: January 29, 2023 SUBJECTIVE: Mrs. Kim is feeling better. She was able to eat a small amount of food yesterday. OBJECTIVE: VITAL SIGNS: She is afebrile. Blood pressure is 121/66. HEENT: Unremarkable. NECK: Neck was supple. LUNGS: Lungs are clear. HEART: The heart was regular. ABDOMEN: Abdomen revealed hyperactive bowel sounds. No tenderness. No rigidity. DIAGNOSTIC DATA: Laboratory data revealed a white count of 3.7, hemoglobin 12.9, sodium 134, potassium 3.6, BUN 8, and creatinine 0.64. ASSESSMENT: Bowel obstruction, improving clinically. The x-ray did reveal some increase in diameter still. PLAN: The patient is tolerating food well, and she is not nauseous. I instructed her to continue to be careful of that, and we will repeat another x-ray in the morning with bloodwork. The patient was encouraged to move. We will give her one dose of potassium today. Dictated By: Joe Husain MD 01/29/23 12:00 JOB #: [id number] Transcribed By: vanesa 01/30/23 06:17 Electronically signed by: E-Sign: JOE HUSAIN MD 02/11/23 11:51 Page 1 of 1 LINDA KIM Progress Note [facility] 08-25-2022 Note HNO ID: [id number] Author: Hellen Horton LPN Service: ? Author Type: LICENSED NURSE Type: Progress Notes Filed: 08/25/2022 3:00 PM Note Text: Patient dropped off Kidney stone, can you please sign this order to send to the lab. Thank you! Hellen Horton LPN [facility] 08-25-2022 Miscellaneous Notes Patient did bring in the stone that she passed. I think it is going to be the same stone she did get an x-ray at her local hospital I cannot pull out, have her bring a disc and send it to me so we can double check but I think this is her stone we will send get it analyzed we will go ahead and do a KUB in 6 months and just watch for more stones Order submitted Needs a kub documented in this encounter [facility] 08-16-2022 Note HNO ID: [id number] Author: RT Iraj(R) Service: Radiology Author Type: Technologist Type: Progress Notes Filed: 08/16/2022 5:00 PM Note Text: Summary: ABDOMEN Radiology Service Progress Note PATIENT NAME: Linda Kim DATE OF SERVICE: August 16, 2022 TIME: 4:59 PM PATIENT IDENTITY VERIFICATION COMPLETED USING TWO (2) IDENTIFIERS: Name and Date of confirmed by patient verbally. FALL SCREENING: Has the patient had 2 falls in the last year or 1 fall with injury or currently using an Ambulatory Assistive Device (Walker, Cane, Wheelchair, Crutches, etc.)? No PATIENT GENDER DATA: Female. status: : No status: NO. PATIENT RELEVANT IMPLANT DATA REVIEWED: Not Applicable RADIOLOGY DEPARTMENT: General X-ray: Exam(s) Completed: Abdomen X-Ray: Abdomen PERIPHERAL IV DATA: Not applicable SIGNED BY: Ruben Padilla, RT(R) August 16, 2022 4:59 PM [facility] 08-16-2022 Note HNO ID: [id number] Author: Vinayak Rodriguez MD Service: ? Author Type: Physician Type: Progress Notes Filed: 08/16/2022 3:55 PM Note Text: Linda Kim is a 67 year old female who presents with follow-up of a right proximal ureteral stone 9 mm. She was at [facility] today. They also had a 5 mm stone which I do not see. This is her first stone. In December 2020 there was not a stone there in her CT. So she grew up in the last year and a half I think she is going to need a lithotripsy. Patient not septic I do not think we need a PERC Review of Systems- Reviewed and otherwise non-contributory. Ht 160 cm (5' 3 ) Wt 47.2 kg (104 lb) BMI 18.42 kg/m? PAST MEDICAL HISTORY Diagnosis Date Bladder cancer (HCC) PAST SURGICAL HISTORY Procedure Laterality Date UROSTOMY CARE Current Outpatient Medications Medication Sig Dispense Refill cephALEXin (KEFLEX) 500 mg capsule docusate sodium (COLACE) 100 mg capsule Take by mouth. oxyCODONE-acetaminophen (PERCOCET) 5-325 mg tablet polyethylene glycol 3350 17 gram/dose powder Take 17 g by mouth. No current facility-administered medications for this visit. No diagnosis found. Vinayak Rodriguez MD This note was generated with voice recognition software and may contain errors, including spelling, grammar, syntax and misrecognition of what was dictated, that are not fully corrected. [facility] 08-16-2022 History of Presen t illness Narrative Summary: ABDOMEN Radiology Service Progress Note PATIENT NAME: Linda Kim DATE OF SERVICE: August 16, 2022 TIME: 4:59 PM PATIENT IDENTITY VERIFICATION COMPLETED USING TWO (2) IDENTIFIERS: Name and Date of confirmed by patient verbally. FALL SCREENING: Has the patient had 2 falls in the last year or 1 fall with injury or currently using an Ambulatory Assistive Device (Walker, Cane, Wheelchair, Crutches, etc.)? No PATIENT GENDER DATA: Female. status: : No status: NO. PATIENT RELEVANT IMPLANT DATA REVIEWED: Not Applicable RADIOLOGY DEPARTMENT: General X-ray: Exam(s) Completed: Abdomen X-Ray: Abdomen PERIPHERAL IV DATA: Not applicable SIGNED BY: RT Iraj(R) August 16, 2022 4:59 PM documented in this encounter [facility] 08-16-2022 Miscellaneous Notes Addended by: VINAYAK RODRIGUEZ on: 08/16/2022 04:08 PM Modules accepted: Orders documented in this encounter [facility] 08-16-2022 History of Presen t illness Narrative Linda Kim is a 67 year old female who presents with follow-up of a right proximal ureteral stone 9 mm. She was at [facility] today. They also had a 5 mm stone which I do not see. This is her first stone. In December 2020 there was not a stone there in her CT. So she grew up in the last year and a half I think she is going to need a lithotripsy. Patient not septic I do not think we need a PERC Review of Systems- Reviewed and otherwise non-contributory. Ht 160 cm (5' 3 ) Wt 47.2 kg (104 lb) BMI 18.42 kg/m PAST MEDICAL HISTORY Diagnosis Date Bladder cancer (HCC) PAST SURGICAL HISTORY Procedure Laterality Date UROSTOMY CARE Current Outpatient Medications Medication Sig Dispense Refill cephALEXin (KEFLEX) 500 mg capsule docusate sodium (COLACE) 100 mg capsule Take by mouth. oxyCODONE-acetaminophen (PERCOCET) 5-325 mg tablet polyethylene glycol 3350 17 gram/dose powder Take 17 g by mouth. No current facility-administered medications for this visit. No diagnosis found. Vinayak Rodriguez MD This note was generated with voice recognition software and may contain errors, including spelling, grammar, syntax and misrecognition of what was dictated, that are not fully corrected. documented in this encounter [facility] 12-13-2021 Hospital Discharg e instructions Fernanda Belle RN - 12/13/2021 10:44 AM EDT TAKE the following medications the morning of your surgery ZOFRAN IF NEEDED FOR NAUSEA, METOPROLOL TARTRATE (LOPRESSOR) You may take your prescription pain medication. You may take Tylenol for pain. NO Motrin, ibuprofen or Advil for 24 hours prior to surgery or longer if instructed by your surgeon. NO Aleve or Naprosyn for 3 days prior to surgery or longer if instructed by your surgeon. NO ASPIRIN OR ASPIRIN CONTAINING PRODUCTS 5 DAYS PRIOR TO SURGERY Follow any instructions given to you by Shower with an antibacterial soap such as Dial or Safeguard or shower kit provided to you before coming to the hospital. No makeup, lotion, powder, deodorant or body spays. No hair products. Remove all jewelry and leave it at home. Wear loose comfortable clothing to go home in. You may brush your teeth morning of surgery. Do not wear contacts day of surgery. No marijuana (THC), smoking or alcohol for 24 hours prior to surgery. Please arrange for a responsible adult to drive you home after your surgery and that there is a responsible adult with you for 24 hours post discharge. If you have specific questions, please call your surgeon. You will receive a call the day before your surgery to verify your arrival time and date. You will be asked to arrive at least two hours prior to your scheduled surgery time. Please bring your [facility] Surgical folder and medication list with you day of surgery. We encourage you to write down any questions you may have for the surgeon, anesthesiologist, or other members of the surgical team and bring it with you the day of surgery. Please bring photo ID and insurance information. ENTER BUILDING AT THE MAIN ENTRANCE. TAKE THE H ELEVATOR TO THE FIRST FLOOR, TURN LEFT OFF THE ELEVATOR AND GO TO THE SAME DAY SURGERY REGISTRATION DESK TO CHECK IN The following attachments cannot be sent through Care Everywhere.Pelvic Prolapse: Post-op (Filipino)documented in this encounter [facility] Work Phone: 01-04-2021 History of Presen t illness Narrative Comprehensive Nutrition Assessment Type and Reason for Visit: Initial, Positive Nutrition Screen (NPO x 3 days) Nutrition Recommendations/Plan: Patient awaiting wheelchair as she is discharged this am. RD provided written information from Nutrition Care Manual on full liquid and low fiber diets. RD briefly reviewed with patient- she reports looking up some information already. RD's name and contact information provided for discharge. Also, suggest Ensure Enlive to assist with her nutritional needs at home (8 oz provides 350 kcals, 20 gm protein). Nutrition Assessment: Patient presented with SBO, concern for closed loop obstruction. NPO and NG tube placed in ED. Since then, pt with improvement in symptoms and bowel function- NG tube removed. She is tolerating full liquids without nausea or vomiting. Passing flatus and having BMs. No complaints of abdominal pain. Noted full liquid diet x 2 weeks and then soft, low fiber diet. Past medical history includes: bladder cancer, chemo, COPD, follicular lymphoma, HTN, ileal conduit, diagnostic laparoscopy and release of SBO, vulvectomy. Upon RD's visit pt is awaiting for wheelchair for her discharge. Malnutrition Assessment: Malnutrition Status: Insufficient data Context: Acute Illness Findings of the 6 clinical characteristics of malnutrition: Energy Intake: Mild decrease in energy intake (Comment) Weight Loss: Unable to assess Body Fat Loss: 7 - Moderate body fat loss Orbital, Buccal region Muscle Mass Loss: Unable to assess Fluid Accumulation: No significant fluid accumulation Log Cutter Strength: Not Performed Estimated Daily Nutrient Needs: Energy (kcal): 3500-6756 kcals per day; Weight Used for Energy Requirements: [place] Protein (g): 71-82 gm per day; Weight Used for Protein Requirements: [place] Fluid (ml/day): Per MD; Method Used for Fluid Requirements: Nutrition Related Findings: Paul = 20, + flatus, bowel sounds present, 8/15 BM, no edema, I/O: +2741.7, urostomy. Meds: Dulcolax, Colace, Lovenox, Lopressor, Glycolax. BMP: Recent Labs 01/02/21 0101 01/03/21 0033 01/04/21 0001 NA 138 134* 133* K 4.0 3.3* 3.5 CL 108* 105 106 CO2 20* 24 21* BUN 19 13 7 CREATININE 0.72 0.54 0.51* GLUCOSE 129* 83 83 CALCIUM 8.9 8.0* 8.7 MG 1.7 1.6 1.8 PHOS 3.2 2.0* 3.2 HEPATIC: No results for input(s): AST, ALT, ALB, BILITOT, ALKPHOS in the last 72 hours. Wounds: None Current Nutrition Therapies: ADULT DIET; Full Liquid Anthropometric Measures: Height: 5' 4 (162.6 cm) Current Body Weight: 106 lb (48.1 kg) (stated) Admission Body Weight: 106 lb (48.1 kg) (stated) Usual Body Weight: 10/01/20 110 lbs and 109 lbs, 10/28/20 110 lbs (stated), 11/11/20 104 lbs [place] Body Weight: 120 lbs; % [place] Body Weight 88.3 % BMI: 18.2 Adjusted Body Weight: ; No Adjustment BMI Categories: Underweight (BMI less than 22) age over 65 Nutrition Diagnosis: Predicted inadequate energy intake related to altered GI function as evidenced by NPO or clear liquid status due to medical condition (full liquids at discharge) Nutrition Interventions: Food and/or Nutrient Delivery: Continue Current Diet Nutrition Education/Counseling: Education completed Coordination of Nutrition Care: Continue to monitor while inpatient Goals: Patient will tolerate diet advancement without GI complaints. Nutrition Monitoring and Evaluation: Behavioral-Environmental Outcomes: None Identified Food/Nutrient Intake Outcomes: Diet Advancement/Tolerance, Food and Nutrient Intake, Vitamin/Mineral Intake Physical Signs/Symptoms Outcomes: Biochemical Data, GI Status, Fluid Status or Edema, Meal Time Behavior, Nutrition Focused Physical Findings, Skin, Weight Discharge Planning: Continue current diet Contact: [phone] Images from the original note were not included. Department of General Surgery Daily Progress Note ADMIT DATE: 12/31/2020 TODAY'S DATE: 01/03/2021 SUBJECTIVE: No acute events overnight. Continues to have BMs and passing flatus. Tolerating clear liquids overnight without nausea or vomiting (NGT out yesterday). Denies abdominal pain and bloating. Feeling well and ready for home tomorrow. OBJECTIVE: VITALS: BP 137/89 Pulse 88 Temp 98.2 F (36.8 C) (Temporal) Resp 16 Ht 5' 4 (1.626 m) Wt 106 lb (48.1 kg) SpO2 96% BMI 18.19 kg/m INTAKE/OUTPUT: Date 01/03/21 0000 - 01/03/21 2359 Shift 5415-5080 3718-4913 5261-7407 24 Hour Total INTAKE P.O.(mL/kg/hr) 275(0.7) 275 Shift Total(mL/kg) 275(5.7) 275(5.7) OUTPUT Shift Total(mL/kg) Weight (kg) 48.1 48.1 48.1 48.1 I/O last 3 completed shifts: In: 1625 [P.O.:625; I.V.:1000] Out: 375 [Urine:375] No intake/output data recorded. PHYSICAL EXAM: Gen: NAD, A&Ox3, pain well controlled Heart: RRR, well perfused Lungs: symmetric chest rise, normal work of breathing Abd: soft, non tender, non distended, non rigid, urostomy in place with pale yellow urine Ext: no c/c/e no gross deformities Skin: warm, well perfused, no obvious rashes, cellulitis or gross discoloration LABS CBC: Recent Labs 01/01/215001/02/2110001/03/21 0033 WBC 9.1 10.9* 5.5 HGB 14.3 15.9 12.6 HCT 42.0 46.7 37.6 PLT 255 254 189 BMP: Recent Labs 01/01/215001/02/2110001/03/21 0033 NA 134* 138 134* K 4.8 4.0 3.3* CL 108* 108* 105 CO2 19* 20* 24 BUN 12 19 13 CREATININE 0.51* 0.72 0.54 GLUCOSE 115* 129* 83 Hepatic: Recent Labs 01/01/21 0051 AST 35 ALT 12 BILITOT 0.8 ALKPHOS 77 Current Inpatient Medications Scheduled Meds: polyethylene glycol 17 g Oral BID docusate sodium 100 mg Oral BID metoprolol 2.5 mg Intravenous Q6H sodium chloride flush 10 mL Intravenous 2 times per day enoxaparin 40 mg Subcutaneous Daily bisacodyl 10 mg Rectal Daily Continuous Infusions: sodium chloride lactated ringers 100 mL/hr at 01/03/21 0517 PRN Meds:sodium chloride flush, sodium chloride, morphine OR morphine, ondansetron ASSESSMENT AND PLAN: 65 y.o. female with SBO, concern for closed loop obstruction. Abdominal exam and imaging studies much improved, patient having bowel function. - Afebrile, VSS, no leukocytosis - advance to FLD today, d/c IVFs - bowel regimen to include: BID miralax, BID colace, dulcolax supp - future diet recs include FLD for 2 weeks, then soft low fiber diet (~Yoana diet) Dispo: d/c 01/04 in the morning STATION The patient was seen and examined. I have reviewed the patients presentation, histories, imaging and serology studies. I agree with the above assessment and plan. Ab: Soft, Non-distended, non-tender Patient doing well today. Pain is well controlled. Multiple loose bowel movements. Advance to FLD today and soft diet tomorrow. Ok for d/c tomorrow. I (Jacobo Rick) personally supervised the resident in the evaluation and development of a treatment plan for this patient including using nursing/ems notes. I personally discussed the review of systems and interviewed the patient along with performing a physical examination. In addition, I discussed the patient's condition and treatment options with them. I have also reviewed and agree with the past medical, family and social history unless otherwise noted and personally reviewed the imaging and labs. This note may be a delayed entry. All of the patient's questions were answered. Greater than 51% of the 25 minute face to face encounter was spent discussing/counseling the patient regarding the care plan for this patient. The patient was seen and examined independently and relevant data reviewed by myself. A full chart review was performed. 1. Small bowel obstruction (HCC) .Nutrition rescreen completed. Patient is NPO/Clear liquid >3 days. Refer to Dietitian.JAZZ Valencia Images from the original note were not included. Department of General Surgery Daily Progress Note ADMIT DATE: 12/31/2020 TODAY'S DATE: 01/02/2021 SUBJECTIVE: No acute events overnight. Patient has been NPO with NG clamped. No nausea or vomiting but some gagging due to dry mouth/swabs. Passing flatus and multiple loose BMs overnight and this morning with improved abdominal pain. OBJECTIVE: VITALS: BP 123/64 Pulse 89 Temp 97 F (36.1 C) (Temporal) Resp 20 Ht 5' 4 (1.626 m) Wt 106 lb (48.1 kg) SpO2 95% BMI 18.19 kg/m INTAKE/OUTPUT: Date 01/02/21 0000 - 01/02/21 235 Shift 9547-0173 8595-3472 1234-6073 24 Hour Total INTAKE P.O.(mL/kg/hr) 0(0) 0 Shift Total(mL/kg) 0(0) 0(0) OUTPUT Shift Total(mL/kg) Weight (kg) 48.1 48.1 48.1 48.1 I/O last 3 completed shifts: In: 1391.7 [I.V.:1391.7] Out: 900 [Urine:900] No intake/output data recorded. PHYSICAL EXAM: Gen: NAD, A&Ox3, pain well controlled Heart: RRR, well perfused Lungs: symmetric chest rise, normal work of breathing Abd: soft, non tender, non distended, non rigid, urostomy in place with pale yellow urine Ext: no c/c/e no gross deformities Skin: warm, well perfused, no obvious rashes, cellulitis or gross discoloration LABS CBC: Recent Labs 01/01/215001/02/21 010 WBC 9.1 10.9* HGB 14.3 15.9 HCT 42.0 46.7 PLT 255 254 BMP: Recent Labs 01/01/215001/02/21100 NA 134* 138 K 4.8 4.0 CL 108* 108* CO2 19* 20* BUN 12 19 CREATININE 0.51* 0.72 GLUCOSE 115* 129* Hepatic: Recent Labs 01/01/2150 AST 35 ALT 12 BILITOT 0.8 ALKPHOS 77 Current Inpatient Medications Scheduled Meds: metoprolol 2.5 mg Intravenous Q6H sodium chloride flush 10 mL Intravenous 2 times per day enoxaparin 40 mg Subcutaneous Daily bisacodyl 10 mg Rectal Daily Continuous Infusions: sodium chloride lactated ringers 100 mL/hr at 01/02/21 0048 PRN Meds:sodium chloride flush, sodium chloride, morphine OR morphine, ondansetron ASSESSMENT AND PLAN: 65 y.o. female with SBO, concern for closed loop obstruction. Abdominal exam and imaging studies much improved, patient having bowel function. - Afebrile, VSS, no leukocytosis - SBFT 01/01, KUB 01/02 AM showing movement of contrast through colon, patient having bowel function - remove NG tube today - will start CLD with slow advance - bowel regimen to include: BID miralax, BID colace, dulcolax supp Dispo: pending PO tolerance, likely d/c 01/03 or 01/04 STATION The patient was seen and examined. I have reviewed the patients presentation, histories, imaging and serology studies. I agree with the above assessment and plan. Ab: Soft, Non-distended, non-tender Patient reports multiple loose bowel movements and flatus. Ok to d/c NGT and start CLD with slow advance. Continue BR. Will follow. I (Jacobo Rick) personally supervised the resident in the evaluation and development of a treatment plan for this patient including using nursing/ems notes. I personally discussed the review of systems and interviewed the patient along with performing a physical examination. In addition, I discussed the patient's condition and treatment options with them. I have also reviewed and agree with the past medical, family and social history unless otherwise noted and personally reviewed the imaging and labs. This note may be a delayed entry. All of the patient's questions were answered. Greater than 51% of the 25 minute face to face encounter was spent discussing/counseling the patient regarding the care plan for this patient. The patient was seen and examined independently and relevant data reviewed by myself. A full chart review was performed. 1. Small bowel obstruction (HCC) NG removed per order. Patient tolerated well. Pt returned to unit from [facility] with a hand written note on top of chart to NOT hook pt up to suction. Images from the original note were not included. Department of General Surgery Daily Progress Note ADMIT DATE: 12/31/2020 TODAY'S DATE: 01/01/2021 SUBJECTIVE: No acute events overnight. Currently NPO, patient reports pain is similar to when she cam in but maybe a little less. The pain was sudden onset and has been constant. She has not passed gas since yesterday. Denies: fevers, chills, nausea, vomiting, shortness of breath or chest pain. OBJECTIVE: VITALS: BP 105/64 Pulse 89 Temp 96.3 F (35.7 C) (Temporal) Resp 16 Ht 5' 4 (1.626 m) Wt 106 lb (48.1 kg) SpO2 93% BMI 18.19 kg/m INTAKE/OUTPUT: Date 01/01/21 0000 - 01/01/21 2359 Shift 5094-2899 0806-7796 2135-1392 24 Hour Total INTAKE Shift Total(mL/kg) OUTPUT Emesis/NG output(mL/kg) 500(10.4) 500(10.4) Shift Total(mL/kg) 500(10.4) 500(10.4) Weight (kg) 48.1 48.1 48.1 48.1 No intake/output data recorded. I/O this shift: In: - Out: 500 [Emesis/NG output:500] PHYSICAL EXAM: Gen: NAD, A&Ox3, pain well controlled Heart: RRR, well perfused Lungs: symmetric chest rise, normal work of breathing, breath sounds b/l Abd: soft, non tender, non distended. Non rigid. Abdominal tenderness noted in all quadrants. Urostomy Noted with appropriate output. Ext: no c/c/e no gross deformities Skin: warm, well perfused, no obvious rashes, cellulitis or gross discoloration LABS CBC: Recent Labs 01/01/2150 WBC 9.1 HGB 14.3 HCT 42.0 PLT 255 BMP: Recent Labs 01/01/2150 NA 134* K 4.8 CL 108* CO2 19* BUN 12 CREATININE 0.51* GLUCOSE 115* Hepatic: Recent Labs 01/01/2150 AST 35 ALT 12 BILITOT 0.8 ALKPHOS 77 Current Inpatient Medications Scheduled Meds: estradiol 1 g Vaginal Daily metoprolol 2.5 mg Intravenous Q6H sodium chloride flush 10 mL Intravenous 2 times per day enoxaparin 40 mg Subcutaneous Daily bisacodyl 10 mg Rectal Daily Continuous Infusions: sodium chloride lactated ringers 100 mL/hr at 01/01/21 0341 PRN Meds:sodium chloride flush, sodium chloride, morphine OR morphine, ondansetron ASSESSMENT AND PLAN: This is a 65 y.o. female with SBO, concern for closed loop obstruction. - no acute surgical intervention - NG placed in ED, continue LIWS - continue prn morphine for pain - strict NPO, LR@100 - strict I/Os - SBFT ordered for the morning - continue to monitor abdominal exams Discussed with attending, Dr. Rick, liquefaction supervisor for Dr. Neil. IRENE BRASHER MD General Surgery PGY-1 01/01/21 10:36 AM Pager # [phone] ATTESTATION The patient was seen and examined. I have reviewed the patients presentation, histories, imaging and serology studies. I agree with the above assessment and plan. Please Refer to H&P I (Jacobo Rick) personally supervised the resident in the evaluation and development of a treatment plan for this patient including using nursing/ems notes. I personally discussed the review of systems and interviewed the patient along with performing a physical examination. In addition, I discussed the patient's condition and treatment options with them. I have also reviewed and agree with the past medical, family and social history unless otherwise noted and personally reviewed the imaging and labs. This note may be a delayed entry. All of the patient's questions were answered. The patient was seen and examined independently and relevant data reviewed by myself. A full chart review was performed. documented in this encounter [facility] Work Phone: 11-03-2020 Hospital course Narrative Discharge Summary Linda Chi Julio : 1955 ADMIT DATE: 10/28/2020 DISCHARGE DATE: 11/03/2020 PRIMARY CARE PHYSICIAN: BEATIRCE IRAHETA VISIT STATUS: Admission CODE STATUS: Full Code DISCHARGE DIAGNOSES: Principal Problem: Small bowel obstruction (HCC) Active Problems: SBO (small bowel obstruction) (HCC) Resolved Problems: * No resolved hospital problems. * HOSPITAL COURSE: The patient is a 65 y.o. female who presented to [place] ER with abdominal pain that started yesterday morning associated with nausea. Last BM was yesterday morning as well. Had a CT abd done with possible SBO and pt was transferred to [facility] for further eval. She has a h/o bladder cancer s/p chemotherapy (2019) and anterior pelvic surgery with ileal conduit 10/27/2020 c/b SBO requiring laparoscopic ahesiolysis on 11/08/2019. Surgery was consulted and she was diagnosed with SBO with acute abdominal pain due to Internal hernia through the mesenteric defect of the small bowel anastomosis and was recommended for surgery. She is now s/p Laparoscopic reduction of internal hernia with closure of the mesenteric defect and Laparoscopic appendectomy on 10/30 per surgery. she has been doing well post op and NG removed yesterday and started on clear liquid diet. She did good and was advanced. Today surgery followed up and she continues to do good. They have cleared her for discharge to follow up with them outpatient. The rest of her other diagnosis include: # Chronic HTN - BP controlled # COPD - stable # Chronic arthritis # H/o bladder cancer s/p surgery with urostomy Physical exam: Cardiovascular: S1S2 heard, RRR Respiratory: Clear to auscultation bilaterally Abdomen: BS + Musculoskeletal: No obvious deformities seen SIGNIFICANT DIAGNOSTIC STUDIES: As above CONSULTANTS: General surgery MEDICATION CHANGES: RECOMMENDED NEXT STEPS: DISCHARGE MEDICATIONS: Linda Kim Home Medication Instructions BRIANNA:[id number] Printed on:11/03/20 9079 Medication Information estradiol (ESTRACE VAGINAL) 0.1 MG/GM vaginal cream Place [address] a pea size amount of cream on vagina once a day. metoprolol tartrate (LOPRESSOR) 25 MG tablet Take 1 tablet by mouth 2 times daily ondansetron (ZOFRAN) 4 MG tablet Take 1 tablet by mouth 3 times daily as needed for Nausea or Vomiting oxyCODONE-acetaminophen (PERCOCET) 5-325 MG per tablet Take 1 tablet by mouth every 6 hours as needed for Pain for up to 3 days. Intended supply: 7 days. Take lowest dose possible to manage pain polyethylene glycol (GLYCOLAX) 17 GM/SCOOP powder Take 17 g by mouth daily DIET: ADULT DIET; Full Liquid ACTIVITY: as recommended per surgery post op. PENDING STUDIES: No DISPOSITION: Home FACILITY: Follow up with Beatrice Stovall [facility] [address] [facility] [id number] Ruben Neil MD [address] [place] [address], [address] [facility] [address] Schedule an appointment as soon as possible for a visit in 2 weeks Post operative follow-up INSTRUCTIONS TO MA/SW: Please call patient on day after discharge (must document patient contacted within 2 business days of discharge). FOLLOW UP QUESTIONS FOR MA/SW: 1. Did you get medications filled and taking them as instructed from discharge? 2. Are you following your discharge instructions from your hospital stay? 3. Please confirm patient is scheduled for a follow up appointment within the above time frame. DISCHARGE TIME: > 30 minutes SIGNED: GUZMAN PALACIOS MD 11/03/2020, 11:51 AM documented in this encounter [facility] Work Phone: 11-03-2020 History of Presen t illness Narrative Images from the original note were not included. GENERAL SURGERY Progress Note PATIENT NAME: Linda Kim TODAY'S DATE: 11/03/2020 SUBJECTIVE: NAOE. VSS Multiple BM and flatus Tolerating liquids OBJECTIVE: VITALS: BP 136/81 Pulse 94 Temp 98.9 F (37.2 C) (Temporal) Resp 20 Ht 5' 5 (1.651 m) Wt 110 lb (49.9 kg) SpO2 93% BMI 18.30 kg/m INTAKE/OUTPUT: I/O last 3 completed shifts: In: 4527 [P.O.:1500; I.V.:3027] Out: 1825 [Urine:1625; Emesis/NG output:200] No intake/output data recorded. REVIEW OF SYSTEMS: Pertinent positives and negatives as per interval history section PHYSICAL EXAM: CONSTITUTIONAL: Oriented to person, place, and time. Appears well nourished. No distress HEAD: Normocepalic,atraumatic, without obvious abnormality EYES: no scleral icterus. Conjunctivae not injected. NECK: supple, symmetrical, trachea midline LUNGS: Resp effort easy and unlabored, breath sounds normal CARDIOVASCULAR: NO JVD, RRR, No murmur ABDOMEN: Soft, minimally distended, NTTP. No rebound or guarding. Ileal conduit in RLQ. MUSCULOSKELETAL: Normal range of motion. No deformity NEUROLOGIC: Mental Status Exam: Level of Alertness: Awake SKIN: Warm, dry, well perfused Data: CBC: Recent Labs 11/01/20 0231 11/02/20 0022 WBC 3.6 3.4* HGB 13.7 15.4 HCT 40.3 44.0 PLT 151 159 BMP: Recent Labs 11/01/20 0231 11/02/20 0022 NA 133* 133* K 3.6 3.6 CL 102 98 CO2 28 28 BUN 10 9 CREATININE 0.53 0.49* GLUCOSE 105* 121* Hepatic: No results for input(s): AST, ALT, ALB, BILITOT, ALKPHOS in the last 72 hours. ASSESSMENT AND PLAN: Linda Kim is a 65 y.o. 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 Neil in 2 weeks Eriak Holden MD General Surgery PGY-4 Pager [phone] Images from the original note were not included. Hospitalist Progress Note 11/02/2020 2:42 PM [phone]: Please page me for patient care issues. [phone]: Please page IMS night Hospitalist for any issues. Subjective: Admit Date: 10/28/2020 PCP: BEATRICE IRAHETA Room#: [id number] Interval History: Patient states she is doing good. No chest pain or sob. No NV. No fevers or chills. ADULT DIET; Clear Liquid No data found. Medications: dextrose 5% and 0.45% NaCl with KCl 20 mEq 100 mL/hr at 11/01/20 1159 sodium chloride lactated ringers bolus 500 mL Intravenous Once polyethylene glycol 17 g Oral Daily metoclopramide 10 mg Intravenous Q6H sodium chloride flush 5-40 mL Intravenous 2 times per day enoxaparin 40 mg Subcutaneous Daily LABS: CBC: Recent Labs 10/31/20 0423 11/01/20 0231 11/02/20 0022 WBC 6.2 3.6 3.4* RBC 4.25 4.48 4.99 HGB 13.1 13.7 15.4 HCT 38.9 40.3 44.0 MCV 91.6 90.0 88.1 RDW 14.4 13.8 13.5 PLT 166 151 159 BMP: Recent Labs 10/31/20 0423 11/01/20 0231 11/02/20 0022 NA 141 133* 133* K 4.5 3.6 3.6 CL 109* 102 98 CO2 26 28 28 BUN 27* 10 9 CREATININE 0.63 0.53 0.49* GLUCOSE 135* 105* 121* CALCIUM 8.9 8.6 9.1 ANIONGAP 5 2* 7 LIVER PROFILE:No results for input(s): AST, ALT, BILITOT, ALKPHOS, LABALBU, PROT in the last 72 hours. PT/INR: No results for input(s): PROTIME, INR in the last 72 hours. CARDIAC ENZYMES: No results for input(s): TROPONINI in the last 72 hours. Procalcitonin: Lab Results Component Value Date PROCAL <0.10 11/20/2019 Objective: Vitals: BP (!) 131/90 Pulse 109 Temp 98.6 F (37 C) (Temporal) Resp 18 Ht 5' 5 (1.651 m) Wt 110 lb (49.9 kg) SpO2 94% BMI 18.30 kg/m Pulse Ox: SpO2 Av % Min: 91 % Max: 94 % Supplemental O2: O2 Flow Rate (L/min): 4 L/min General appearance: No apparent distress, appears stated age and cooperative with exam HEENT: Eyes: No scleral icterus Oral: Tongue is semi-moist Cardiovascular: S1S2 heard, RRR Respiratory: Clear to auscultation bilaterally Abdomen: BS + Musculoskeletal: No obvious deformities seen Skin: No visible rashes or lesions. Assessment # SBO with acute abdominal pain due to Internal hernia through the mesenteric defect of the small bowel anastomosis- s/p Laparoscopic reduction of internal hernia with closure of the mesenteric defect and Laparoscopic appendectomy on 10/30 per surgery. POD # 1 # Chronic HTN - BP controlled despite holding po lopressor due to NPO status. # COPD - stable # Chronic arthritis # H/o bladder cancer s/p surgery with urostomy Plan Continue post op care as per surgery. Surgery removed NGT and patient is now on CLD. Plan is to advance as tolerated. Check am labs. Continue all other tx the same. Advance Directive: Full Code Discharge planning: TBD GUZMAN PALACIOS MD, MD Division of Hospitalist Medicine Inpatient Medical Services PAGER: [phone] Images from the original note were not included. GENERAL SURGERY Progress Note PATIENT NAME: Linda Kim TODAY'S DATE: 11/02/2020 SUBJECTIVE: NAOE. VSS Reports minimal flatus. No BMs NGT w/ 750cc overnight. OBJECTIVE: VITALS: BP 130/81 Pulse 115 Temp 98.5 F (36.9 C) (Temporal) Resp 18 Ht 5' 5 (1.651 m) Wt 110 lb (49.9 kg) SpO2 92% BMI 18.30 kg/m INTAKE/OUTPUT: I/O last 3 completed shifts: In: 875 [I.V.:875] Out: 2525 [Urine:1775; Emesis/NG output:750] No intake/output data recorded. REVIEW OF SYSTEMS: Pertinent positives and negatives as per interval history section PHYSICAL EXAM: CONSTITUTIONAL: Oriented to person, place, and time. Appears well nourished. No distress HEAD: Normocepalic,atraumatic, without obvious abnormality EYES: no scleral icterus. Conjunctivae not injected. NECK: supple, symmetrical, trachea midline LUNGS: Resp effort easy and unlabored, breath sounds normal CARDIOVASCULAR: NO JVD, RRR, No murmur ABDOMEN: Soft, minimally distended, NTTP. No rebound or guarding. Ileal conduit in RLQ. NG tube in place with minimal output. MUSCULOSKELETAL: Normal range of motion. No deformity NEUROLOGIC: Mental Status Exam: Level of Alertness: Awake SKIN: Warm, dry, well perfused Data: CBC: Recent Labs 10/31/20 0423 11/01/20 0231 11/02/20 0022 WBC 6.2 3.6 3.4* HGB 13.1 13.7 15.4 HCT 38.9 40.3 44.0 PLT 166 151 159 BMP: Recent Labs 10/31/20 0423 11/01/20 0231 11/02/20 0022 NA 141 133* 133* K 4.5 3.6 3.6 CL 109* 102 98 CO2 26 28 28 BUN 27* 10 9 CREATININE 0.63 0.53 0.49* GLUCOSE 135* 105* 121* Hepatic: No results for input(s): AST, ALT, ALB, BILITOT, ALKPHOS in the last 72 hours. ASSESSMENT AND PLAN: Linda Kim is a 65 y.o. 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 Jolynn Palmer MD Associated attestation - Ruben Neil MD - 11/02/2020 8:00 PM EDT Images from the original note were not included. [facility] Physicians Surgery Patient Name: Linda Kim Date: 11/02/20 Doing great - large BM today with flatus BP 136/85 Pulse 114 Temp 97.6 F (36.4 C) (Temporal) Resp 18 Ht 5' 5 (1.651 m) Wt 110 lb (49.9 kg) SpO2 94% BMI 18.30 kg/m CBC: Recent Labs 10/31/20 0423 11/01/20 0231 11/02/20 0022 WBC 6.2 3.6 3.4* HGB 13.1 13.7 15.4 HCT 38.9 40.3 44.0 PLT 166 151 159 BMP: Recent Labs 10/31/20 0423 11/01/20 0231 11/02/20 0022 NA 141 133* 133* K 4.5 3.6 3.6 CL 109* 102 98 CO2 26 28 28 BUN 27* 10 9 CREATININE 0.63 0.53 0.49* GLUCOSE 135* 105* 121* Hepatic:No results for input(s): ALKPHOS, ALT, AST, PROT, BILITOT, BILIDIR, LABALBU in the last 72 hours. Abdomen: Soft, mildly tender, nondistended. Plan: POD#3 Tolerated fulls Home in am I personally supervised my Resident/Surgical Fellow in the evaluation and management of Linda Kim in the development of a treatment plan for this patient. I personally interviewed the patient and performed an individual physical examination. In addition, I discussed the patient's condition and treatment options with them. I have also reviewed and agree with the past medical, family and social history and care plan unless otherwise noted. All of the patient's questions were answered. Images from the original note were not included. Hospitalist Progress Note 11/01/2020 11:43 AM [phone]: Please page me for patient care issues. [phone]: Please page IMS night Hospitalist for any issues. Subjective: Admit Date: 10/28/2020 PCP: BEATRICE IRAHETA Room#: [id number] Interval History: Patient states she is doing good. No chest pain or sob. No NV. No fevers or chills. Diet NPO No data found. Medications: dextrose 5% and 0.45% NaCl with KCl 20 mEq 100 mL/hr at 10/31/20 1622 sodium chloride lactated ringers bolus 500 mL Intravenous Once polyethylene glycol 17 g Oral Daily metoclopramide 10 mg Intravenous Q6H sodium chloride flush 5-40 mL Intravenous 2 times per day enoxaparin 40 mg Subcutaneous Daily LABS: CBC: Recent Labs 10/30/20 0204 10/31/20 0423 11/01/20 0231 WBC 7.9 6.2 3.6 RBC 5.27* 4.25 4.48 HGB 16.2* 13.1 13.7 HCT 48.4* 38.9 40.3 MCV 91.8 91.6 90.0 RDW 14.1 14.4 13.8 PLT 227 166 151 BMP: Recent Labs 10/30/20 0204 10/31/20 0423 11/01/20 0231 NA 139 141 133* K 4.4 4.5 3.6 CL 105 109* 102 CO2 25 26 28 BUN 34* 27* 10 CREATININE 0.97 0.63 0.53 GLUCOSE 139* 135* 105* CALCIUM 9.6 8.9 8.6 ANIONGAP 8 5 2* LIVER PROFILE:No results for input(s): AST, ALT, BILITOT, ALKPHOS, LABALBU, PROT in the last 72 hours. PT/INR: No results for input(s): PROTIME, INR in the last 72 hours. CARDIAC ENZYMES: No results for input(s): TROPONINI in the last 72 hours. Procalcitonin: Lab Results Component Value Date PROCAL <0.10 11/20/2019 Objective: Vitals: BP (!) 152/80 Pulse 90 Temp 98.6 F (37 C) (Temporal) Resp 18 Ht 5' 5 (1.651 m) Wt 110 lb (49.9 kg) SpO2 96% BMI 18.30 kg/m Pulse Ox: SpO2 Av.5 % Min: 95 % Max: 96 % Supplemental O2: O2 Flow Rate (L/min): 4 L/min General appearance: No apparent distress, appears stated age and cooperative with exam HEENT: Eyes: No scleral icterus Oral: Tongue is semi-moist Cardiovascular: S1S2 heard, RRR Respiratory: Clear to auscultation bilaterally Abdomen: has abdominal binder Musculoskeletal: No obvious deformities seen Skin: No visible rashes or lesions. Assessment # SBO with acute abdominal pain due to Internal hernia through the mesenteric defect of the small bowel anastomosis- s/p Laparoscopic reduction of internal hernia with closure of the mesenteric defect and Laparoscopic appendectomy on 10/30 per surgery. POD # 1 # Chronic HTN - BP controlled despite holding po lopressor due to NPO status. # COPD - stable # Chronic arthritis # H/o bladder cancer s/p surgery with urostomy Plan Continue post op care as per surgery. Has NG to drainage and is NPO still. Check am labs. Continue all other tx the same. Advance Directive: Full Code Discharge planning: CHON PALACIOS MD, MD Division of Hospitalist Medicine Inpatient Medical Services PAGER: [phone] Comprehensive Nutrition Assessment Type and Reason for Visit: Initial Nutrition Recommendations/Plan: 1. Advance po when medically feasible vs need for alternate source of nutrition. 2. Monitor progression of nutritional status. 3. If pt is expected to remain NPO >5-7 days from admission and GI function is not returned can provide TPN. 4. If TPN recommend for Initial TPN: 102g protein (408 kcals), 390 dextrose kcals, 340 lipid kcals = 1138 kcals = 20 kcals/kg + 1.8g protein/kg IBW (56.8kgs). 5. Monitor nutritional status. 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 Pt with NGT clamped. KUB (abd) today (10/31) showed continued dilated small bowel loops. Malnutrition Assessment: Malnutrition Status: Severe malnutrition Context: Acute Illness Findings of the 6 clinical characteristics of malnutrition: Energy Intake: 7 - 50% or less of estimated energy requirements for 5 or more days Weight Loss: Unable to assess (no known weight loss, weigh pt when able) Body Fat Loss: 7 - Moderate body fat loss Buccal region Muscle Mass Loss: 7 - Moderate muscle mass loss Temples (temporalis), Clavicles (pectoralis & deltoids) Fluid Accumulation: No significant fluid accumulation Log Cutter Strength: Not Performed Estimated Daily Nutrient Needs: Energy (kcal): 25-30 kcals/kg IBW (56.8kgs) = 8580-5740 kcals/day; Weight Used for Energy Requirements: [place] Protein (g): 1.3-1.5g protein/kg IBW (56.8kgs) = 74-85g protein/day; Weight Used for Protein Requirements: [place] Fluid (ml/day): per MD; Method Used for Fluid Requirements: Other (Comment) Nutrition Related Findings: Hypoactive BS, upper abd incision, Ileal conduit. NG - clamped. Wounds: Surgical Incision Current Nutrition Therapies: Diet NPO Anthropometric Measures: Height: 5' 5 (165.1 cm) Current Body Weight: 110 lb (49.9 kg) Admission Body Weight: 110 lb (49.9 kg) [place] Body Weight: 125 lbs; % [place] Body Weight 88 % BMI: 18.3 BMP: Recent Labs 10/29/20 0317 10/30/20 0204 10/31/20 0423 NA 136 139 141 K 4.4 4.4 4.5 CL 107 105 109* CO2 22 25 26 BUN 28* 34* 27* CREATININE 0.84 0.97 0.63 GLUCOSE 112* 139* 135* CALCIUM 9.0 9.6 8.9 MG -- -- 2.1 PHOS -- -- 3.0 BG - elavated. Mg - WNL. Phos - WNL. Nutrition Diagnosis: Severe malnutrition, In context of acute illness or injury related to altered GI structure as evidenced by NPO or clear liquid status due to medical condition, poor intake prior to admission, moderate muscle loss, moderate loss of subcutaneous fat Nutrition Interventions: Food and/or Nutrient Delivery: Continue NPO (monitor need for TPN.) Nutrition Education/Counseling: No recommendation at this time Coordination of Nutrition Care: Continue to monitor while inpatient Goals: Pt receives optimal nutrition. Nutrition Monitoring and Evaluation: Food/Nutrient Intake Outcomes: Diet Advancement/Tolerance, Parenteral Nutrition Intake/Tolerance Physical Signs/Symptoms Outcomes: Biochemical Data, GI Status, Nutrition Focused Physical Findings, Skin, Weight Discharge Planning: Too soon to determine Contact: Pager #[phone] Images from the original note were not included. Hospitalist Progress Note 10/31/2020 12:51 PM [phone]: Please page me for patient care issues. [phone]: Please page IMS night Hospitalist for any issues. Subjective: Admit Date: 10/28/2020 PCP: BEATRICE IRAHETA Room#: [id number] Interval History: Patient states she is doing good. No chest pain or sob. No NV. No fevers or chills. Diet NPO Patient Vitals for the past 96 hrs (Last 3 readings): Weight 10/28/20 0415 110 lb (49.9 kg) Medications: dextrose 5% and 0.45% NaCl with KCl 20 mEq 100 mL/hr at 10/30/202034 sodium chloride lactated ringers bolus 500 mL Intravenous Once polyethylene glycol 17 g Oral Daily metoclopramide 10 mg Intravenous Q6H sodium chloride flush 5-40 mL Intravenous 2 times per day enoxaparin 40 mg Subcutaneous Daily LABS: CBC: Recent Labs 10/29/20 0317 10/30/20 0204 10/31/20 0423 WBC 10.7 7.9 6.2 RBC 5.08 5.27* 4.25 HGB 15.7 16.2* 13.1 HCT 45.8 48.4* 38.9 MCV 90.2 91.8 91.6 RDW 14.0 14.1 14.4 PLT 211 227 166 BMP: Recent Labs 10/29/20 0317 10/30/20 0204 10/31/20 0423 NA 136 139 141 K 4.4 4.4 4.5 CL 107 105 109* CO2 22 25 26 BUN 28* 34* 27* CREATININE 0.84 0.97 0.63 GLUCOSE 112* 139* 135* CALCIUM 9.0 9.6 8.9 ANIONGAP 7 8 5 LIVER PROFILE:No results for input(s): AST, ALT, BILITOT, ALKPHOS, LABALBU, PROT in the last 72 hours. PT/INR: No results for input(s): PROTIME, INR in the last 72 hours. CARDIAC ENZYMES: No results for input(s): TROPONINI in the last 72 hours. Procalcitonin: Lab Results Component Value Date PROCAL <0.10 11/20/2019 Objective: Vitals: BP (!) 144/71 Pulse 85 Temp 98 F (36.7 C) (Temporal) Resp 18 Ht 5' 5 (1.651 m) Wt 110 lb (49.9 kg) SpO2 92% BMI 18.30 kg/m Pulse Ox: SpO2 Av.2 % Min: 92 % Max: 97 % Supplemental O2: O2 Flow Rate (L/min): 4 L/min General appearance: No apparent distress, appears stated age and cooperative with exam HEENT: Eyes: No scleral icterus Oral: Tongue is semi-moist Cardiovascular: S1S2 heard, RRR Respiratory: Clear to auscultation bilaterally Abdomen: has abdominal binder Musculoskeletal: No obvious deformities seen Skin: No visible rashes or lesions. Assessment # SBO with acute abdominal pain due to Internal hernia through the mesenteric defect of the small bowel anastomosis- s/p Laparoscopic reduction of internal hernia with closure of the mesenteric defect and Laparoscopic appendectomy on 10/30 per surgery. POD # 1 # Chronic HTN - BP controlled despite holding po lopressor due to NPO status. # COPD - stable # Chronic arthritis # H/o bladder cancer s/p surgery with urostomy Plan Continue post op care as per surgery. Has NG to drainage and is NPO still. Check am labs. Continue all other tx the same. Advance Directive: Full Code Discharge planning: TBD GUZMAN PALACIOS MD, MD Division of Hospitalist Medicine Inpatient Medical Services PAGER: [phone] KUB done in PACU Sister navdeep updated via phone Pt arrived to PACU from OR. Pt ID verified. Monitors applied with alarms on. Vital signs stable. Nutrition rescreen completed. Patient referred to the Dietitian. JAZZ Medina Hospitalist Progress Note 10/30/2020 11:57 AM Subjective: Admit Date: 10/28/2020 PCP: BEATRICE IRAHETA Interval History: No overnight issues. Diet NPO I/O last 3 completed shifts: In: - Out: 1365 [Urine:1140; Emesis/NG output:225] Date 10/30/20 0000 - 10/30/20 2359 Shift [id number] 1074-7151 5062-0433 24 Hour Total INTAKE Shift Total(mL/kg) OUTPUT Urine(mL/kg/hr) 350(0.9) 350 Emesis/NG output(mL/kg) 25(0.5) 25(0.5) Shift Total(mL/kg) 375(7.5) 375(7.5) Weight (kg) 49.9 49.9 49.9 49.9 Patient Vitals for the past 96 hrs (Last 3 readings): Weight 10/28/20 0415 110 lb (49.9 kg) Medications: sodium chloride lactated ringers 75 mL/hr at 10/29/20 1716 metoclopramide 10 mg Intravenous Q6H sodium chloride flush 5-40 mL Intravenous 2 times per day enoxaparin 40 mg Subcutaneous Daily Recent Labs 10/28/20 0548 10/29/20 0317 10/30/20 0204 WBC 10.1 10.7 7.9 HGB 16.5* 15.7 16.2* PLT 222 211 227 Recent Labs 10/28/20 0548 10/29/20 0317 10/30/20 0204 NA 139 136 139 K 4.3 4.4 4.4 CL 108* 107 105 CO2 18* 22 25 BUN 22* 28* 34* CREATININE 0.89 0.84 0.97 GLUCOSE 138* 112* 139* No results for input(s): AST, ALT, ALB, BILITOT, ALKPHOS in the last 72 hours. Lab Results Component Value Date TRIG 231 11/04/2019 No results found for: PHART, PO2ART, AYI5FFK No results for input(s): INR in the last 72 hours. No results for input(s): CKTOTAL, CKMB, TROPONINI in the last 72 hours. No results for input(s): DDIMER in the last 72 hours. No components found for: HGBA1C No results found for: TSH Urine Culture: Results for orders placed or performed during the hospital encounter of 10/28/19 Culture, Urine Specimen: Urine ILLEAL Result Value Ref Range Urine Culture, Routine No growth (<1,000 CFU/ml). Objective: Vitals: BP (!) 153/89 Pulse 97 Temp 98.7 F (37.1 C) (Temporal) Resp 18 Ht 5' 5 (1.651 m) Wt 110 lb (49.9 kg) SpO2 93% BMI 18.30 kg/m Pulse Ox: SpO2 Av.8 % Min: 91 % Max: 95 % Supplemental O2: O2 Flow Rate (L/min): 3 L/min General appearance: alert and cooperative with exam Lungs: clear to auscultation bilaterally Heart: regular rate and rhythm, S1, S2 normal, no murmur, click, rub or gallop Abdomen: mid abdomen tenderness Extremities: extremities normal, atraumatic, no cyanosis or edema Neurologic: No obvious focal neurologic deficits. Assessment Abdominal pain SBO H/o bladder cancer s/p surgery with urostomy Past Medical History []?Expand by Default Diagnosis Date Arthritis Cancer (HCC) 05/2019 bladder finished chemo 10/15/2019 COPD (chronic obstructive pulmonary disease) (HCC) Follicular lymphoma (HCC) Hematuria History of blood transfusion 3 units in 10/2019 Hypertension PLAN: Cont NPO, NGT in place IV hydration PPI Surgery following SBFT today -in no contrast in colon -surgery plan for OR for diagnostic laparoscopy today Replace lytes as needed Pain control Jeniffer Card MD, MD Rounding Hospitalist Images from the original note were not included. GENERAL SURGERY Progress Note PATIENT NAME: Linda Kim TODAY'S DATE: 10/30/2020 SUBJECTIVE: NAOE. VSS Still no flatus or bowel function NGT w/ 225 cc bilious output last 24 hours Minimal pain OBJECTIVE: VITALS: BP (!) 153/89 Pulse 97 Temp 98.7 F (37.1 C) (Temporal) Resp 18 Ht 5' 5 (1.651 m) Wt 110 lb (49.9 kg) SpO2 93% BMI 18.30 kg/m INTAKE/OUTPUT: I/O last 3 completed shifts: In: - Out: 1365 [Urine:1140; Emesis/NG output:225] No intake/output data recorded. REVIEW OF SYSTEMS: Pertinent positives and negatives as per interval history section PHYSICAL EXAM: CONSTITUTIONAL: Oriented to person, place, and time. Appears well nourished. No distress HEAD: Normocepalic,atraumatic, without obvious abnormality EYES: no scleral icterus. Conjunctivae not injected. NECK: supple, symmetrical, trachea midline LUNGS: Resp effort easy and unlabored, breath sounds normal CARDIOVASCULAR: NO JVD, RRR, No murmur ABDOMEN: Soft, minimally distended, NTTP. No rebound or guarding. Ileal conduit in RLQ. NG tube in place with minimal output. MUSCULOSKELETAL: Normal range of motion. No deformity NEUROLOGIC: Mental Status Exam: Level of Alertness: Awake SKIN: Warm, dry, well perfused Data: CBC: Recent Labs 10/28/20 0548 10/29/20 0317 10/30/20 0204 WBC 10.1 10.7 7.9 HGB 16.5* 15.7 16.2* HCT 47.9* 45.8 48.4* PLT 222 211 227 BMP: Recent Labs 10/28/20 0548 10/29/20 0317 10/30/20 0204 NA 139 136 139 K 4.3 4.4 4.4 CL 108* 107 105 CO2 18* 22 25 BUN 22* 28* 34* CREATININE 0.89 0.84 0.97 GLUCOSE 138* 112* 139* Hepatic: No results for input(s): AST, ALT, ALB, BILITOT, ALKPHOS in the last 72 hours. ASSESSMENT AND PLAN: Linda Kim is a 65 y.o. 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 - follow up CT A/P today, if no contrast in colon, plan for OR for diagnostic laparoscopy this afternoon - informed consent for OR placed In chart - maintain NGT to LIWS - Strict I/O - OOB, ambulate - Surgery will continue to follow closely - wdw Dr. Jolynn Palmer MD Associated attestation - Ruben Neil MD - 10/30/2020 5:47 PM EDT Images from the original note were not included. [facility] - [facility] Physicians Surgery Patient Name: Linda Kim Date: 10/30/20 Abnormal small bowel study, no passage of contrast. We will proceed with laparoscopy. Informed consent obtained. CBC: Recent Labs 10/28/20 0548 10/29/20 0317 10/30/20 0204 WBC 10.1 10.7 7.9 HGB 16.5* 15.7 16.2* HCT 47.9* 45.8 48.4* PLT 222 211 227 BMP: Recent Labs 10/28/20 0548 10/29/20 0317 10/30/20 0204 NA 139 136 139 K 4.3 4.4 4.4 CL 108* 107 105 CO2 18* 22 25 BUN 22* 28* 34* CREATININE 0.89 0.84 0.97 GLUCOSE 138* 112* 139* Hepatic:No results for input(s): ALKPHOS, ALT, AST, PROT, BILITOT, BILIDIR, LABALBU in the last 72 hours. Abdomen: Soft, nontender, more distended. Plan: Laparoscopy for small bowel obstruction, abnormal small bowel follow-through I personally supervised my Resident/Surgical Fellow in the evaluation and management of Linda Kim in the development of a treatment plan for this patient. I personally interviewed the patient and performed an individual physical examination. In addition, I discussed the patient's condition and treatment options with them. I have also reviewed and agree with the past medical, family and social history and care plan unless otherwise noted. All of the patient's questions were answered. Notified BP 170/84 manually and HR 106 asking for PRN BP meds. Will continue to monitor. Contrast progressing slowly. Will plan to leave NGT clamped overnight unless pt has emesis. KUB ordered for AM. Erika Holden MD General Surgery PGY-4 Pager [phone] Received an OK to give zofran one hour early per Dr. Palmer. Hospitalist Progress Note 10/29/2020 9:48 AM Subjective: Admit Date: 10/28/2020 PCP: BEATRICE IRAHETA Interval History: No overnight issues. Diet NPO I/O last 3 completed shifts: In: 912 [I.V.:912] Out: 950 [Urine:800; Emesis/NG output:150] Date 10/29/20 0000 - 10/29/20 2359 Shift [id number] [id number] 24 Hour Total INTAKE Shift Total(mL/kg) OUTPUT Urine(mL/kg/hr) 200(0.5) 200 Emesis/NG output(mL/kg) 50(1) 50(1) Shift Total(mL/kg) 250(5) 250(5) Weight (kg) 49.9 49.9 49.9 49.9 Patient Vitals for the past 96 hrs (Last 3 readings): Weight 10/28/20 0415 110 lb (49.9 kg) Medications: sodium chloride lactated ringers 75 mL/hr at 10/28/20 0544 sodium chloride flush 5-40 mL Intravenous 2 times per day enoxaparin 40 mg Subcutaneous Daily Recent Labs 10/28/20 0548 10/29/20 031 WBC 10.1 10.7 HGB 16.5* 15.7 PLT 222 211 Recent Labs 10/28/20 0548 10/29/20 0317 NA 139 136 K 4.3 4.4 CL 108* 107 CO2 18* 22 BUN 22* 28* CREATININE 0.89 0.84 GLUCOSE 138* 112* No results for input(s): AST, ALT, ALB, BILITOT, ALKPHOS in the last 72 hours. Lab Results Component Value Date TRIG 231 11/04/2019 No results found for: PHART, PO2ART, [id number] No results for input(s): INR in the last 72 hours. No results for input(s): CKTOTAL, CKMB, TROPONINI in the last 72 hours. No results for input(s): DDIMER in the last 72 hours. No components found for: HGBA1C No results found for: TSH Urine Culture: Results for orders placed or performed during the hospital encounter of 10/28/19 Culture, Urine Specimen: Urine ILLEAL Result Value Ref Range Urine Culture, Routine No growth (<1,000 CFU/ml). Objective: Vitals: BP (!) 143/97 Pulse 96 Temp 98.4 F (36.9 C) (Temporal) Resp 18 Ht 5' 5 (1.651 m) Wt 110 lb (49.9 kg) SpO2 92% BMI 18.30 kg/m Pulse Ox: SpO2 Av.5 % Min: 92 % Max: 93 % Supplemental O2: General appearance: alert and cooperative with exam Lungs: clear to auscultation bilaterally Heart: regular rate and rhythm, S1, S2 normal, no murmur, click, rub or gallop Abdomen: mid abdomen tenderness -less today Extremities: extremities normal, atraumatic, no cyanosis or edema Neurologic: No obvious focal neurologic deficits. Assessment Abdominal pain SBO H/o bladder cancer s/p surgery with urostomy Past Medical History []Expand by Default Diagnosis Date Arthritis Cancer (HCC) 05/2019 bladder finished chemo 10/15/2019 COPD (chronic obstructive pulmonary disease) (HCC) Follicular lymphoma (HCC) Hematuria History of blood transfusion 3 units in 10/2019 Hypertension PLAN: Cont NPO, NGT in place IV hydration PPI Surgery following SBFT today. Replace lytes as needed Pain control Jeniffer Card MD, MD Rounding Hospitalist Images from the original note were not included. GENERAL SURGERY Progress Note PATIENT NAME: Linda Kim TODAY'S DATE: 10/29/2020 SUBJECTIVE: Patient doing well this am. Complains of dry mouth. Denies nausea or emesis. Denies flatus or BM. Denies abdominal pain. Had minor nausea associated with morphine yesterday. OBJECTIVE: VITALS: BP (!) 143/97 Pulse 96 Temp 98.4 F (36.9 C) (Temporal) Resp 18 Ht 5' 5 (1.651 m) Wt 110 lb (49.9 kg) SpO2 92% BMI 18.30 kg/m INTAKE/OUTPUT: I/O last 3 completed shifts: In: 912 [I.V.:912] Out: 950 [Urine:800; Emesis/NG output:150] No intake/output data recorded. REVIEW OF SYSTEMS: Pertinent positives and negatives as per interval history section PHYSICAL EXAM: CONSTITUTIONAL: Oriented to person, place, and time. Appears well nourished. No distress HEAD: Normocepalic,atraumatic, without obvious abnormality EYES: no scleral icterus. Conjunctivae not injected. NECK: supple, symmetrical, trachea midline LUNGS: Resp effort easy and unlabored, breath sounds normal CARDIOVASCULAR: NO JVD, RRR, No murmur ABDOMEN: Soft, ND, NTTP. No rebound or guarding. Ileal conduit in RLQ. NG tube in place with minimal output. MUSCULOSKELETAL: Normal range of motion. No deformity NEUROLOGIC: Mental Status Exam: Level of Alertness: Awake SKIN: Warm, dry, well perfused Data: CBC: Recent Labs 10/28/20 0548 10/29/20316 WBC 10.1 10.7 HGB 16.5* 15.7 HCT 47.9* 45.8 PLT 222 211 BMP: Recent Labs 10/28/20 0548 10/29/20316 NA 139 136 K 4.3 4.4 CL 108* 107 CO2 18* 22 BUN 22* 28* CREATININE 0.89 0.84 GLUCOSE 138* 112* Hepatic: No results for input(s): AST, ALT, ALB, BILITOT, ALKPHOS in the last 72 hours. ASSESSMENT AND PLAN: Linda Kim is a 65 y.o. female with multiple abdominal surgical procedures complicated by adhesive SBO s/p laparoscopy adhesiolysis and non operative management of SBO who presents with another episode of small bowel obstruction. - no acute surgical intervention - continue patient as NPO/IVF with NGT placement - small bowel follow through pending today - Strict I/O - OOB, ambulate - Surgery will continue to follow closely Jacobo Ro MD MD, PGY 3 Surgery *1900 PAGING: From 6a-6p (6a- weekends): Page me at [phone] From 6p-6a (- weekends): - Surg ICU Patients: Page [phone] - Surg Floor Patients: Page [phone] Associated attestation - Ruben Neil MD - 10/29/2020 2:33 PM EDT Images from the original note were not included. [facility] - [facility] Physicians Surgery Patient Name: Linda Kim Date: 10/29/20 No acute overnight, only 150 cc from the NG tube. Minimal abdominal pain, if any, no flatus or bowel function. Upper GI with small bowel follow-through scheduled today. BP (!) 143/97 Pulse 96 Temp 98.4 F (36.9 C) (Temporal) Resp 18 Ht 5' 5 (1.651 m) Wt 110 lb (49.9 kg) SpO2 92% BMI 18.30 kg/m CBC: Recent Labs 10/28/20 0548 10/29/20 0317 WBC 10.1 10.7 HGB 16.5* 15.7 HCT 47.9* 45.8 PLT 222 211 BMP: Recent Labs 10/28/20 0548 10/29/20 0317 NA 139 136 K 4.3 4.4 CL 108* 107 CO2 18* 22 BUN 22* 28* CREATININE 0.89 0.84 GLUCOSE 138* 112* Hepatic:No results for input(s): ALKPHOS, ALT, AST, PROT, BILITOT, BILIDIR, LABALBU in the last 72 hours. Abdomen: Soft, nontender, mildly distended. Plan: Small bowel obstruction, small bowel follow-through today Minimal distention if any, continue NG tube VTE prophylaxis All questions answered, evaluate fluoroscopy results I personally supervised my Resident/Surgical Fellow in the evaluation and management of Linda Kim in the development of a treatment plan for this patient. I personally interviewed the patient and performed an individual physical examination. In addition, I discussed the patient's condition and treatment options with them. I have also reviewed and agree with the past medical, family and social history and care plan unless otherwise noted. All of the patient's questions were answered. Greater than 51% of the 25 minute face to face encounter was spent discussing/counseling the patient regarding the care plan for this patient. The patient was seen and examined independently and relevant data reviewed by myself. A full chart review was performed. NG advanced per Dr. Ro Per radiology, SBFT will not be done today due to time of order- to start tomorrow. Paged IMS liquefaction supervisor for NG maintenance orders. Orders placed for KUB to confirm placement. documented in this encounter [facility] Work Phone: 06-17-2019 History of Presen t illness Narrative Discharge information given to the patient. Patient and family verbalized understanding of information. Sitz bath with instructions given. All questions were answered before discharge. Patient ambulated, denies dizziness or nausea. Tolerating PO fluids and crackers. Vital signs are stable. Patient has changed and is being discharged home in a wheelchair with valuables. Patient arrived and ID verified. Vital signs stable. Call light in reach.somnolent. NAD. 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 Hematuria, gross Gross hematuria documented in this encounter [facility] Work Phone: Evaluation note* Diagnosis Post-op pain- Primary Other acute postoperative pain documented in this encounter [facility] Work Phone: Evaluation note* Diagnosis Kidney stones- Primary Calculus of kidney Hematuria, unspecified type [facility] Diagnosis Kidney stones Calculus of kidney Hematuria, unspecified type [facility]* Diagnosis Kidney stones- Primary Calculus of kidney [facility] Instructions* Jacobo Ro MD - 11/03/2020 Images from the original note were not included. [facility] Physicians Surgery Patient Name: Linda Kim Date: @TODAY@ DISCHARGE INSTRUCTIONS Thank you very much for allowing me to participate in your care, it is truly a privilege. Below please see discharge orders that will help you during your recovery. Please do not hesitate to call theoffice during the day at [phone] for any questions. After hours, the same number will allow you to reach the on-call surgeon. Please remove the Steri-Strips 5 days after surgery. You may be instructed by nursing staff to either leave them on until you see Dr. Neil or they will fall off on their own. Neither is true. Please remove the Steri-Strips as instructed 5 days after your date of surgery. This includes any clear bandages and gauze placed in the navel, if applicable. If you have been provided with an abdominal binder, this is for your comfort. Please take this off in order to shower and use it as needed for your comfort. There is no designated time frame with which you should wear the binder. Again, it is only for your comfort and symptom relief. Please shower the day after surgery. Soap and water is adequate. Keep the incisions clean and dry. No lotions or ointments until you are seen in the office. Surgery can hurt! Please make every effort to take the pain medicine as instructed to help reduce your discomfort. I usually recommend that you take pain medicine when you wake up in the morning and before you go to sleep. Schedule the rest of the day in order to not interfere with medication dosages as prescribed. If you feel that the medicine is not working, please call the office. Should you have nausea after surgery (the most common complaint after surgery) you will be providedwith a prescription for Phenergan. Please utilize this should you have any postoperative nausea or vomiting. If you feel that the medicine is not working, please call the office. For any emergencies, please dial 911. Thank you again for allowing me to participate in your care, and get well soon! [facility] Discharge instructions* Instructions* Radha Senior, - 01/04/2021 Images from the original note were not included. DISCHARGE INSTRUCTIONS Thank you very much for allowing me to participate in your care, it is truly a privilege. Below please see discharge orders that will help you during your recovery. Please do not hesitate to call theoffice during the day at [phone] for any questions. After hours, the same number will allow you to reach the on-call surgeon. Please remove the Steri-Strips 5 days after surgery. This includes any clear bandages and gauze placed in the navel, if applicable. If you have been provided with an abdominal binder, this is for your comfort. Please take this off in order to shower and use it as needed for your comfort. There is no designated time frame with which you should wear the binder. Again, it is only for your comfort and symptom relief. Do not lift anything that is 15 pounds or greater for 4 weeks from the date of your surgery. This is to prevent herniation at your incision sites. Please shower the day after surgery. Soap and water is adequate. Keep the incisions clean and dry. No lotions or ointments until you are seen in the office. Do not swim in a pool, go in a hot tub, orsoak in a bathtub for the first week after your surgery. Surgery can hurt! Please make every effort to take the pain medicine as instructed to help reduce your discomfort. If you are a full sized adult and do not have a contraindication to taking tylenol or ibuprofen you can take a combination of these medicines as follows: 1000 mg Tylenol every 6 hours and 800 mg ibuprofen every 6 hours. I recommend that you alternate these medications so that you aretaking either tylenol or ibuprofen every 3 hours for the first 3-5 days after your surgery even in the event that you do not have discomfort. Surgery is an inflammatory process and these medications will help decrease inflammation and pain. Do not wait until you have pain to take these medications,it is hard to catch up once the pain begins. If you are prescribed [place] (Vicodin) or Percoet, please note that these medications have tylenol in them. If you take 1-2 percocet tablets simply do not take the 1000 mg tylenol. DO NOT exceed 4000 mg tylenol in 24 hours or 3200 mg ibuprofen in 24 hours. I recommend keeping a log of the medications that you have taken to ensure you are not exceeding the recommended dosage. If you feel that the medicine is not working or if you have questions please call the office. An EXAMPLE schedule of how to take these medications is below. It is not necessary to wake yourself from sleep to take pain medication. 6 am 1-2 percocet tablets if needed OR 1000 mg tylenol 9 am 800 mg ibuprofen 12 pm 1-2 percocet tablets if needed OR 1000 mg tylenol 3 pm 800 mg ibuprofen 6 pm 1-2 percocet tablets if needed OR 1000 mg tylenol 9 pm 800 mg ibuprofen 12 am 1-2 percocet tablets if needed OR 1000 mg tylenol 3 am 800 mg ibuprofen 6 am 1-2 percocet tablets if needed OR 1000 mg tylenol You may have had a TAP block. This is a numbing medication that the anesthesia team may have given you preoperatively. This block is great at reducing post operative pain, however, it may only last 24-48 hours. Again, I recommend that you take the tylenol/ibuprofen regimen as above in order to easeinto the transition of the TAP block wearing off. Should you have nausea after surgery you may have been prescribed nausea medication. Try taking themedicine and if you feel that the medicine is not working, please call the office. I recommend taking colace for the first week after surgery. This medication can be purchased over the counter or it may be prescribed for you. Colace is a stool softener and should not cause diarrhea. Take 100 mg every 12 hours for the first week to prevent constipation. You may also take a cap full of Miralax daily if you have a history of constipation or if you have not had a bowel movement in t he first 24 hours after surgery. For any emergencies, please dial 911. Thank you again for allowing me to participate in your care, and get well soon! Good nutrition is important when healing from an illness, injury, or surgery. Follow any nutrition recommendations given to you during your hospital stay. If you were given an oral nutrition supplement while in the hospital, continue to take this supplement at home. You can take it with meals, in-between meals, and/or before bedtime. These supplements can be purchased at most local grocery stores, pharmacies, and [employer]. If you have any questions about your diet or nutrition, call the hospital and ask for the dietitian. Avoid carbonation, straws, gum chewing, and smoking. These activities introduce air into your stomach and cause bloating and discomfort. Simethicone (gas-x) may ease gas pain and can be purchased over the counter without a prescription. Day 1 after your surgery begin a clear liquid diet. It includes the following liquids: Apple juice Cranberry juice Grape juice Chicken broth Beef broth Flavored gelatin (Jell-O ) Decaf tea and coffee Caffeinated beverages are permitted based on tolerance Popsicles Belarusian ice Day 2 after your surgery advance diet to full liquid diet which includes anything on the clear liquid diet, plus: Milk, soy, rice and almond (no chocolate) Cream of wheat, cream of rice, grits Strained creamed soups (no tomato or broccoli) Vanilla and strawberry-flavored ice cream Sherbet Blended, custard styled or whipped yogurt (plain or vanilla only) Vanilla and butterscotch pudding (no chocolate or coconut) Nutritional drinks including Ensure , Boost , [place] Instant Breakfast (no chocolate-flavored) On day 3 after your surgery you may start a soft diet and continue this diet until you follow up inthe office in one to two weeks. A list of food items is below. Food Category Foods to Choose Foods to Avoid Beverages Milk, such as, whole, 2%, 1%, non-fat, or skim, soy, rice, almond Caffeinated and decaf tea and coffee Powdered drink mixes (in moderation) Non-citrus juices (apple, grape, cranberry or blends of these) Fruit nectars Nutritional drinks including Boost , Ensure , [place] Instant Breakfast Chocolate milk, cocoa or other chocolate-flavored drinks Carbonated drinks Alcohol Ewen juices like orange, grapefruit, lemon and [place] Breads Pancakes, Bulgarian toast and waffles Crackers (saltine, butter, soda, cassi, Goldfish and Cheese Nips ) Toasted bread Untoasted bread, bagels, [place] and hard rolls, Filipino muffins Crackers with nuts, seeds, fresh or dried fruit, coconut, or highly seasoned, such as garlic or onion-flavored Sweet rolls, coffee cake or doughnuts Cereals Well cooked cereals, such as oatmeal (plain or flavored) Cold cereal (Cornflakes , Rice Krispies , Cheerios , Special K plain, Rice Chex and puffed rice) Very coarse cereal, such as bran, shredded wheat Any cereal with fresh or dried fruit, coconut, seeds or nuts Desserts Eat in moderation and do not eat desserts or sweets by themselves. Plain cakes, cookies and cream-filled pies Vanilla and butterscotch pudding or custard Ice cream, ice milk, frozen yogurt and sherbet Gelatin made from allowed foods Fruit ices and popsicles Desserts containing chocolate, coconut, nuts, seeds, fresh or dried fruit,peppermint or spearmint Eggs Poached, hard boiled or scrambled Fried eggs and highly seasoned eggs (deviled eggs) Fats Eat in moderation. Butter and margarine Mayonnaise and vegetable oils Mildly seasoned cream sauces and gravies Plain cream cheese Sour cream Highly seasoned salad dressings, cream sauces and gravies Mcguire, mcguire fat, ham fat, lard and salt pork Fried foods Nuts Fruits Fruit juice Any canned or cooked fruit except those listed in the AVOID column ALL fresh fruits, such as citrus, bananas and pineapple Canned pineapple Dried fruits, such as raisins, berries Fruits with seeds, such as berries, kiwi and figs Meat, Fish, Poultry, and Dairy Products Meats may be ground, minced or chopped to ease swallowing and digestion Tender, well cooked and moist cuts of beef, chicken, turkey and pork Veal and salcido Flaky, cooked fish Canned tuna Cottage and ricotta cheeses Mild cheese, such as Luxembourger, brick, mozzarella and baby [place] Islander Creamy peanut butter Plain custard or blended fruit yogurt Moist casseroles, such as macaroni & cheese, tuna noodle Grilled or toasted cheese sandwich Tough meats with a lot of gristle Fried, highly seasoned, smoked and fatty meat, fish or poultry, such as frankfurters, luncheon meats, sausage, mcguire, spare ribs, beef brisket, sardines, anchovies, duck and goose [place] and other entrees made with pepper or chili pepper Shellfish Strongly flavored cheeses, such as sharp cheese, extra sharp cheddar, cheese containing peppers or other seasonings Crunchy peanut butter Any yogurt with nuts, seeds, coconut, strawberries or raspberries Potatoes and Starches Peeled, mashed or boiled white or sweet potatoes Oven-baked potatoes without skin Well cooked white rice, enriched noodles, barley, spaghetti, macaroni and other pastas Fried potatoes, potato skins and potato chips Hard and soft taco shells Fried, brown or wild rice Soups Mildly flavored meat stocks Cream soups made from allowed foods Highly seasoned soups and tomato based soups, cream soups made with gas producing vegetables, such as broccoli, cauliflower, onion, etc. Sweets and Snacks Use in moderation and do not eat large amounts of sweets by themselves. Syrup, honey, jelly and seedless jam Plain hard candies and plain candies made with allowed ingredients Molasses Marshmallows Other candy made from allowed ingredients Thin pretzels Jam, marmalade and preserves Chocolate in any form Any candy containing nuts, coconut, seeds, peppermint, spearmint or dried or fresh fruit Popcorn, potato chips, tortilla chips Soft or hard thick pretzels, such as sourdough Vegetables Well cooked soft vegetables without seeds or skins, such as asparagus tips, beets, carrots, green and wax beans, chopped spinach, tender canned baby peas, squash and pumpkin Raw vegetables, tomatoes, tomato juice, tomato sauce and V-8 juice Gas producing vegetables, such as broccoli, Brussel sprouts, cabbage, cauliflower, onions, corn, cucumber, green peppers, rutabagas, turnips, radishes and sauerkraut Dried beans, peas and lentils Miscellaneous Salt and spices in moderation Mustard and vinegar in moderation Fried or highly seasoned foods Coconut and seeds Pickles and olives [place] sauces, ketchup, barbecue sauce, horseradish, black pepper, chili powder and onion and garlicseasonings Any other strongly flavored seasoning, condiment, spice or herb not tolerated Any food not tolerated documented in this [facility] Work Phone: Hospital Discharge instructions* Instructions* Ruben SchwarzDO - 06/17/2019 Bladder Cancer: Care Instructions Your Care Instructions Bladder cancer occurs when abnormal cells grow out of control in the bladder. It usually can be cured when it is found early. It is more common in older people. Treatment may include surgery to remove part of the bladder. If the tumor is large, the entire bladder may be removed. You may also have radiation or chemotherapy to kill the cancer cells. Sometimes people get treatment with medicines that help the body's natural defenses, or immune system, fight the cancer. Finding out that you have cancer is scary. You may feel many emotions and may need some help coping. Seek out family, friends, and counselors for support. You also can do things at home to make yourself feel better while you go through treatment. Call the [employer] ( ) orvisit its website at www.cancer.org for more information. Follow-up care is a randhawa part of your treatment and safety. Be sure to make and go to all appointments, and call your doctor if you are having problems. It's also a good idea to know your test resultsand keep a list of the medicines you take. How can you care for yourself at home? Take your medicines exactly as prescribed. Call your doctor if you think you are having a problem with your medicine. You may get medicine for nausea and vomiting if you have these side effects. Eat healthy food. If you are not hungry, try to eat food that has protein and extra calories to keep up your strength and prevent weight loss. Drink liquid meal replacements for extra calories and protein. Try to eat your main meal early. Get some physical activity every day, but do not get too tired. Keep doing the hobbies you enjoy asyour energy allows. Take steps to control your stress and workload. Learn relaxation techniques. ? Share your feelings. Stress and tension affect our emotions. By expressing your feelings to others, you may be able to understand and cope with them. ? Consider joining a support group. Talking about a problem with your spouse, a good friend, or other people with similar problems is a good way to reduce tension and stress. ? Express yourself through art. Try writing, dance, art, or crafts to relieve tension. Some dance, writing, or art groups may be available just for people who have cancer. ? Be kind to your body and mind. Getting enough sleep, eating a healthy diet, and taking time to dothings you enjoy can contribute to an overall feeling of balance in your life and help reduce stress. ? Get help if you need it. Discuss your concerns with your doctor or counselor. If you are vomiting or have diarrhea: ? Drink plenty of fluids (enough so that your urine is light yellow or clear like water) to preventdehydration. Choose water and other caffeine-free clear liquids. If you have kidney, heart, or liver disease and have to limit fluids, talk with your doctor before you increase the amount of fluids you drink. ? When you are able to eat, try clear soups, mild foods, and liquids until all symptoms are gone for 12 to 48 hours. Other good choices include dry toast, crackers, cooked cereal, and gelatin dessert, such as Jell-O. Take care of your urinary tract to prevent problems such as infection, which can be caused by bladder cancer and its treatment. Limit drinks with caffeine, drink plenty of fluids, and urinate every 3to 4 hours. If you have not already done so, prepare a list of advance directives. Advance directives are instructions to your doctor and family members about what kind of care you want if you become unable to speak for yourself. When should you call for help? Call your doctor now or seek immediate medical care if: You have pain that does not get better after taking pain medicine. You have symptoms of a kidney infection. These may include: ? Pain or burning when you urinate. ? A frequent need to urinate without being able to pass much urine. ? Pain in the flank, which is just below the rib cage and above the waist on either side of the back. ? Blood in your urine. ? A fever. Watch closely for changes in your health, and be sure to contact your doctor if: You do not get better as expected. Where can you learn more? Go to [email or web address] and sign in to your [email or web address] account. Enter M796 in the Search Health Information box to learn more about Bladder Cancer: Care Instructions. If you do not have an account, please click on the Sign Up Now link. Current as of: January 09, 2019 Content Version: 12.3 3307-4447 [employer]. Care instructions adapted under license by [employer]. If youhave questions about a medical condition or this instruction, always ask your healthcare professional. [employer] disclaims any warranty or liability for your use of this information. Please follow your post operative care instructions given to you by your [employer] [facility] Oncologist's office at your pre operative visit. Please call the office with questions or concerns and be sure to follow up at your scheduled post operative visit. documented in this [employer] Work Phone: Hospital Discharge instructions* Attachments The following attachments cannot be sent through Care Everywhere. * Pelvic Prolapse: Post-op (Filipino) documented in this [employer] Work Phone: Reason for referral (narrative)* Diagnostic Procedure Only (Routine) - Closed Specialty Diagnoses / Procedures Referred By Ramiro junior Referred To Contact XR IMAGING Diagnoses Kidney stones Hematuria, unspecified type Procedures XR ABDOMEN 2V ROUTINE SUPINE W UPRIGHT/DECUB/CTL RADIOLOGIC EXAM ABDOMEN 2 VIEWS Vinayak Rodriguez MD [email or web address] [facility] [place] [address] Xr Imaging Referral ID Status Reason Start Date Expiration Date V isits Requested Visits Authorized [id number] Closed Auto-Generate d Referral 08/16/2022 09/15/2023 1 1 T [facility] [place] for referral (narrative)* Diagnostic Procedure Only (Routine) - Closed Specialty Diagnoses / Procedures Referred By Contac t Referred To Contact XR IMAGING Diagnoses Kidney stones Hematuria, unspecified type Procedures XR ABDOMEN 2V ROUTINE SUPINE W UPRIGHT/DECUB/CTL RADIOLOGIC EXAM ABDOMEN 2 VIEWS Vinayak Rodriguez MD [address] [facility] [place] [address] Xr Imaging Referral ID Status Reason Start Date Expiration Date V isits Requested Visits Authorized [id number] Closed Auto-Generate d Referral 08/16/2022 09/15/2023 1 1 [facility] [place] for referral (narrative)* Diagnostic Procedure Only (Routine) - Pending Review Specialty Diagnoses / Procedures Referred By Contac t Referred To Contact XR IMAGING Diagnoses Kidney stones Procedures XR ABDOMEN 1V SUPINE RADIOLOGIC EXAM ABDOMEN 1 VIEW Scar Yuan [employer]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 [address] [place] [address] Xr Imaging Referral ID Status Reason Start Date Expiration Date Visits Requested Visits Authorized [id number] Pending Review Auto-Generat ed Referral 08/17/2022 09/16/2023 1 1 [facility] [place] for visit Narrative* Diagnostic Procedure Only (Routine) - Closed Specialty Diagnoses / Procedures Referred By Contac t Referred To Contact XR IMAGING Diagnoses Kidney stones Hematuria, unspecified type Procedures XR ABDOMEN 2V ROUTINE SUPINE W UPRIGHT/DECUB/CTL RADIOLOGIC EXAM ABDOMEN 2 VIEWS Vinayak Rodriguez MD [address] [address] Xr Imaging Referral ID Status Reason Start Date Expiration Date V isits Requested Visits Authorized [id number] Closed Auto-Generate d Referral 08/16/2022 09/15/2023 1 1 [facility] Discharge Instructions * Instructions* Myesha Barrera RN - 10/21/2019 CHG shower kit and instructions given to patien Informed pt of need to refrain from smoking, vaping, using snuff or chew for 24 hours before surgery. Informed pt of anesthesia's right to cancel surgery if they have used these products. Pt verbalizes understanding. Please bring your [facility] Surgical Information folder on the day of surgery. Please stephen the last dose taken (date and time ) on your Daily Medications List provided in your After Visit Summary. Please bring a photo ID and insurance information TAKE the following medications the morning of your surgery none You may take your prescription pain medications. You may take Tylenol (Acetaminophen) if needed forpain. No Motrin, Ibuprofen, or Advil 24 hours prior to surgery, or longer if instructed by your surgeon. No Aleve or Naprosyn 3 days prior to surgery, or longer if instructed by your surgeon. If you are on BLOOD THINNERS or ASPIRIN,stop any aspirin 5 days prior Additional instructions follow reji further instructions that Dr finn may have given to you You will receive a reminder call the day before surgery with your Same Day Surgery arrival time. If you have specific questions, please call your surgeon. * Attachments The following attachments cannot be sent through Care Everywhere. * Cystectomy: Ileal Conduit: Post-op (Filipino) * Cystectomy: Ileal Conduit: Pre-op (Filipino) documented in this encounter* Discharge Instr - Lab* Naty Savage RN - 11/11/2019 5:36 PM EDT Your physician has ordered skilled home care services for you. Your home care will be provided by: [facility] [phone] * Additional Instructions* Walker Cruz, DO - 11/12/2019 Cystectomy With Continent [place]: What to Expect at Home Your Recovery A cystectomy is surgery to remove part or all of the bladder. The surgery is mainly used to treat bladder cancer. After surgery, your belly will be sore, and you will probably need pain medicine for 1 to 2 weeks. You may notice some blood in your urine or that your urine is light pink for the first 3 weeks aftersurgery. This is normal. If you have a urostomy (stoma), you can expect it to be swollen and tender at first. This usually improves after 2 to 3 weeks. A stoma is an opening the doctor makes in your belly. It connects to thenewly created bladder so you can drain urine. You do this by placing a small plastic tube into yourstoma. You decide when to do this. If you have a neobladder, you will have a thin plastic tube (catheter) coming out of your urethra for about 3 weeks. When it is removed, you will urinate much as you always have, but you will need toset a time to urinate for the first few months after surgery. Your doctor will tell you how to do this. You will probably leak urine for a few months. Within 1 year, you should be able to control when you urinate. While you recover from surgery, you will also learn to care for your stoma (if you have one) and your catheter. You may find it helpful to meet several times with a wound ostomy continence nurse (WOCN), who can teach you how to do this. You will probably need 6 to 8 weeks to get back to your usual routine. If your surgery was done to treat bladder cancer, you may need other treatments after surgery, such as chemotherapy or radiationtherapy. Bladder cancer surgery may affect sexual function. If a woman's uterus and ovaries are removed during the surgery, she will not be able to get , and menopause may start. She may have hot flashes and other symptoms of menopause. And if a man's prostate gland and seminal vesicles are removed,he may have problems getting an erection and will not be able to make a woman . This care sheet gives you a general idea about how long it will take for you to recover. But each person recovers at a different pace. Follow the steps below to get better as quickly as possible. How can you care for yourself at home? Activity Rest when you feel tired. Getting enough sleep will help you recover. Try to walk each day. Start by walking a little more than you did the day before. Bit by bit, increase the amount you walk. You may use stairs when you return home, but take them slowly. Walking boosts blood flow and helps prevent pneumonia and constipation. Avoid strenuous activities, such as bicycle riding, jogging, weight lifting, or aerobic exercise, until your doctor says it is okay. Avoid lifting more than 5 pounds for about 4 weeks or until your doctor says it is okay. This may include a child, heavy grocery bags and milk containers, a heavy briefcase or backpack, cat litter ordog food bags, or a vacuum brass cleaner. Avoid bending. If you have to pick something up, bend at your knees (not at your waist) and pick upthe object. Ask your doctor when you can drive again. You will probably be able to go back to work or your normal routine in 6 to 8 weeks. This depends on the type of work you do and whether you have any further treatment. You may take a shower. When you shower, keep your catheter taped to your leg. Empty the urine before you start. Do not take a bath until the catheter has been removed. If you have a stoma, gently pat the skin around it dry after bathing. Ask your doctor when it is okay for you to have sex. Diet You can eat your normal diet. If your stomach is upset, try bland, low-fat foods like plain rice, broiled chicken, toast, and yogurt. Drink plenty of fluids to avoid becoming dehydrated. Medicines Your doctor will tell you if and when you can restart your medicines. He or she will also give you instructions about taking any new medicines. If you take aspirin or some other blood thinner, ask your doctor if and when to start taking it again. Make sure that you understand exactly what your doctor wants you to do. Take pain medicines exactly as directed. ? If the doctor gave you a prescription medicine for pain, take it as prescribed. ? If you are not taking a prescription pain medicine, ask your doctor if you can take an outu-emu-uciebjr medicine. If you think your pain medicine is making you sick to your stomach: ? Take your medicine after meals (unless your doctor has told you not to). ? Ask your doctor for a different pain medicine. If your doctor prescribed antibiotics, take them as directed. Do not stop taking them just because you feel better. You need to take the full course of antibiotics. Incision care If you have strips of tape on the cut (incision) the doctor made, leave the tape on for a week or until it falls off. Wash the area daily with warm, soapy water, and pat it dry. Don't use hydrogen peroxide or alcohol,which can slow healing. You may cover the area with a gauze bandage if it weeps or rubs against clothing. Change the bandage every day. Keep the area clean and dry. Other instructions You will leak urine during the night for a while, so you will need a pad to absorb the urine (incontinence pad). To control pain when you cough or sneeze, hold a pillow over your incision. You will need to wash out your new bladder so mucus does not collect and block it. Your doctor or WOCN will teach you how to do this. If you have a neobladder: ? You will have a urinary catheter for about 3 weeks. Your doctor or nurse will tell you how to care for it. ? Be sure the catheter is securely taped to your thigh and connected to the large drainage bag mostof the time. Use the smaller leg bag only when you go out. ? A little leakage around the catheter is normal. ? Your new bladder does not have a nerve supply, so you will not have an urge that tells you when to urinate. You will need a set time to urinate for the first few months after surgery. Your doctor will tell you how to do this. ? You will have to learn how to use your sphincter and belly muscles to urinate. Your doctor will tell you how to do this and give you exercises to make them strong. ? You may sometimes need to use a catheter to make sure no urine is left in your new bladder. Leaving urine in the bladder can cause kidney problems or infection. Your doctor or nurse will help you with this. If you have a continent diversion reservoir with stoma: ? Follow your doctor's or WOCN's instructions for caring for your stoma. ? You do not need a bag to collect urine. The new bladder will store urine until you empty it. You do this by placing a small plastic tube into your stoma. You will learn to recognize how it feels when your new bladder is full. Your doctor or WOCN will help you with this. Follow-up care is a randhawa part of your treatment and safety. Be sure to make and go to all appointments, and call your doctor if you are having problems. It's also a good idea to know your test resultsand keep a list of the medicines you take. When should you call for help? [id number] anytime you think you may need emergency care. For example, call if: You passed out (lost consciousness). You have chest pain, are short of breath, or cough up blood. Call your doctor now or seek immediate medical care if: You have pain that does not get better after you take pain medicine. You have loose stitches, or your incision comes open. You are bleeding from the incision. You have signs of infection, such as: ? Increased pain, swelling, warmth, or redness. ? Red streaks leading from the area. ? Pus draining from the area. ? A fever. You are unable to urinate. You have symptoms of a urinary tract infection. These may include: ? Pain or burning when you urinate. ? A frequent need to urinate without being able to pass much urine. ? Pain in the flank, which is just below the rib cage and above the waist on either side of the back. ? Blood in your urine. ? A fever. You are sick to your stomach or cannot drink fluids. You have signs of a blood clot in your leg (called a deep vein thrombosis), such as: ? Pain in your calf, back of the knee, thigh, or groin. ? Redness or swelling in your leg. Watch closely for any changes in your health, and be sure to contact your doctor if you have any problems. Where can you learn more? Go to [email or web address] and sign in to your H2020 account. Enter E039 in the Search Health Information box to learn more about Cystectomy With Continent [place]: What to Expect at Home. If you do not have an account, please click on the Sign Up Now link. Current as of: January 10, 2019 Content Version: 12. [employer]. Care instructions adapted under license by [employer]. If you have questions about a medical condition or this instruction, always ask your healthcare professional. [employer] disclaims any warranty or liability for your use of this information. documented in this encounter* Discharge Instr - Activity* Tena Alvarado MD - 11/20/2019 11:45 AM EDT As tolerated * Discharge Instr - Diet* Tena Alvarado MD - 11/20/2019 11:46 AM EDT ? Good nutrition is important when healing from an illness, injury, or surgery. Follow any nutrition recommendations given to you during your hospital stay. ? If you were given an oral nutrition supplement while in the hospital, continue to take this supplement at home. You can take it with meals, in-between meals, and/or before bedtime. These supplements can be purchased at most local grocery stores, pharmacies, and [employer]-stores. ? If you have any questions about your diet or nutrition, call the hospital and ask for the dietitian. ? Soft diet * Discharge Instr - Lab* Naty Savage RN - 11/18/2019 1:58 PM EDT Your physician has ordered skilled home care services for you. Your home care will be provided by: [facility] [phone] * Additional Instructions* Aisha Zimmerman, [facility] - 11/19/2019 documented in this encounter* Instructions* Myesha Barrera RN - 05/25/2020 Shower with and antibacterial soap such as Dial or Safeguard. Please bring your [facility] Surgical Information folder on the day of surgery. Please stephen the last dose taken (date and time ) on your Daily Medications List provided in your After Visit Summary. Please bring a photo ID and insurance information TAKE the following medications the morning of your surgery metoprolol You may take your prescription pain medications. You may take Tylenol (Acetaminophen) if needed forpain. No Motrin, Ibuprofen, or Advil 24 hours prior to surgery, or longer if instructed by your surgeon. No Aleve or Naprosyn 3 days prior to surgery, or longer if instructed by your surgeon. If you are on BLOOD THINNERS or ASPIRIN, stop Aspirin 5 days prior Additional instructions follow any further instructions that dr storey may have given to you You will receive a reminder call the day before surgery with your Same Day Surgery arrival time. If you have specific questions, please call your surgeon. * Attachments The following attachments cannot be sent through Care Everywhere. * Colonoscopy: Post-op (Filipino) * Colonoscopy: General Info (Filipino) * Colonoscopy: Pre-op (Filipino) documented in this encounter* Instructions* Scar Birmingham MD - 06/11/2020 POST-OPERATIVE INSTRUCTIONS FOR ANORECTAL SURGERY OBTAIN THE FOLLOWING FROM THE [facility]UG[facility]ORE PAIN MEDICATION - A narcotic pain prescription may be provided, if not, ibuprofen (Advil)/acetaminophen (Tylenol) can be used to control pain and can be less constipating. DO NOT exceed 4000 mg acetaminophen in 24 hours or 3200 mg ibuprofen in 24 hours. METAMUCIL or similar fiber supplement is recommended on a daily basis. COLACE or MIRALAX is recommended on a daily basis for 2 weeks to avoid hard bowel movements if taking prescription narcotics SPECIAL INSTRUCTIONS Remove the external gauze later in the day or during your first shower/bath. On occasion a dissolvable foam (Gelfoam ) or gauze (Surgicel ) is used in the anal canal. This material will pass spontaneously often turning brown in color. Flush it down the toilet. Avoiding straining or sitting on the toilet for long periods of time or heavy lifting especially the first day after surgery. The increased pressure can aggravate swelling and bleeding. Slight bleeding and drainage is usual after this procedure. Report excessive bleeding or passage ofclots to the office. Use non-cotton gauze, sanitary pads or minipads as needed for bleeding and drainage. Warm showers or baths are recommended 2 to 3 times per day or as needed in the post- operative period for discomfort and to keep area clean. You can purchase a hand-held shower sprayer, bidet, sitz bath, or squirt bottle to keep the tissuesclean in the micheal-anal area after bowel movements and as needed. Avoid a hot shower immediately after surgery since the sedation used during procedure may precipitate light-headedness or fainting. Resume your regular diet. Report severe constipation or diarrhea to the office. Contact the office immediately if you are unable to urinate or if you have fever or chills. Do Not Use enemas or suppositories after surgery unless specifically instructed by the office. Contact the office the following business day after surgery to inform us of your progress and to make your follow-up appointment. Do not drive/operate heavy machinery while you are taking narcotic pain medication or if your pain is too severe to allow you to react appropriately. A small amount of bloody drainage can occur for several days and sometime weeks depending on the nature and severity of the surgical procedure Post-Operative Pain Reduction Strategy to Minimize Opioid Use Please take acetaminophen (Tylenol) and/or NSAIDS (Advil, Motrin) for postoperative pain control before taking opioid prescriptions for pain. You can alternate between the two or stagger them to achieve a more durable pain control regimen. -Do not exceed more than 4g of acetaminophen within 24 hours -Do not exceed more than 3200 mg NSAIDs in 24 hours -Do not take NSAIDs or acetaminophen if you have any contraindications to them. If your pain is not controlled by acetaminophen and/or NSAIDS, please take your opioid prescription([place]/vicodin/percocet have tylenol in them) as needed for pain relief and try to use the minimum amount necessary for adequate pain relief. Opioid narcotics can suppress your respiratory drive and decrease your level of alertness. It can also cause your bowel function to slow down and potentially make you constipated. -Do not drive or operate heavy machinery while on narcotic medications. Please properly dispose your excess opioid medications at the appropriate facility/location. An EXAMPLE schedule of how to take these medications is below. It is not necessary to wake yourselffrom sleep to take pain medication. It is not necessary to take the opioid prescription medication if pain is controlled on tylenol and ibuprofen alone. 6am: 1000 mg tylenol and 1-2 oxycodone (5mg) tablets if needed 9am: 800 mg ibuprofen 12pm: 1000 mg tylenol and 1-2 oxycodone (5mg) tablets if needed 3pm: 800 mg ibuprofen 6pm: 1000 mg tylenol and 1-2 oxycodone (5mg) tablets if needed 9pm: 800 mg ibuprofen 12am: 1000 mg tylenol and 1-2 oxycodone (5mg) tablets if needed 3am: 800 mg ibuprofen 6am: 1000 mg tylenol and 1-2 oxycodone (5mg) tablets if needed documented in this encounter History of Present Illness * Radha Barrios RN - 10/21/2019 11:30 AM EDT Seen in preadmission testing for ileal conduit education and marking. Discussed ileal conduit-verbalizes understanding of surgery. Given urostomy book, marking done in right lower abdomen, and demonstrated use of urostomy pouching system. documented in this encounter* Radha Barrios RN - 11/12/2019 8:55 AM EDT Ileal conduit 1 1/4 inch, mucosa pinky-red, moist, peristomal skin intact, stents intact, moderate to large amount of mucous noted at stoma os by stents, draining yellow urine into bedside drainage garbage collector. Review of urostomy care with pouching system change done. Patient assisted with cutting flange, applying ring, and snapping two piece together. Instructions, pattern and supplies are at bedside. To call/follow up with any ostomy care questions or concerns. * Jeremy Queen MD - 11/12/2019 6:16 AM EDT UROLOGY PROGRESS NOTE PATIENT NAME: Linda Kim DATE OF : 1955 ADMISSION DATE: 10/28/2019 5:41 AM TODAY'S DATE: 11/12/2019 Subjective No acute events Tolerating regular diet +BM/Flatus Pain controlled Ambulating Objective VS: BP 114/64 Pulse 104 Temp 98.4 F (36.9 C) (Temporal) Resp 18 Ht 5' 4.5 (1.638 m) Wt 119 lb (54 kg) SpO2 94% BMI 20.11 kg/m Vitals: 11/12/19 0455 BP: 114/64 Pulse: 104 Resp: 18 Temp: 98.4 F (36.9 C) SpO2: 94% I & O - 24hr: Intake/Output Summary (Last 24 hours) at 11/12/2019 0616 Last data filed at 11/12/2019 0508 Gross per 24 hour Intake 2200 ml Output 1500 ml Net 700 ml Physical Exam: General: HEENT: Resp: Abdomen: No acute distress normocephalic Normal effort Soft, appropriately TTP, minimally distended, incisions c/d/i : Ileal conduit with pink stoma, with mucus overlying, and B/L stents extruding draining yellow urine Skin: Skin color, texture, turgor normal, no rashes or lesions Labs and Imaging Studies Labs: CBC: Recent Labs 11/10/19 0447 11/11/19 0206 11/12/19 0031 WBC 20.4* 16.4* 14.8* HGB 10.3* 9.8* 9.5* HCT 31.6* 30.5* 29.9* MCV 95.4 95.3 96.0 PLT 629* 510* 468* BMP: Recent Labs 11/10/19 0447 11/11/19 0206 11/12/19 0031 NA 142 139 137 K 3.7 3.4* 4.1 CL 109* 108* 112* CO2 23 20* 19* PHOS 3.2 3.9 3.7 BUN 64* 45* 37* CREATININE 0.60 0.49* 0.55 Magnesium: Lab Results Component Value Date MG 2.0 11/12/2019 Phosphate: Lab Results Component Value Date PHOS 3.7 11/12/2019 PT/INR: No results for input(s): PROTIME, INR in the last 72 hours. U/A: Lab Results Component Value Date LEUKOCYTESUR 250 10/31/2019 WBCUA 11-25 10/31/2019 RBCUA 51-100 10/31/2019 BACTERIA Few 10/31/2019 GLUCOSEU Normal 10/31/2019 Urine Culture: Component Value Date/Time LABURIN No growth (<1,000 CFU/ml). 10/31/20192026 Imaging Studies: CT A/P without contrast 10/29 IMPRESSION: Free intraperitoneal fluid appears denser than simple ascites and is suspicious for peritoneal blood CTR: I spoke with Raquel, the patient's nurse via telephone at 10:12 AM 10/30/2019. Abdominal wall air, free intraperitoneal air and pelvic extraperitoneal air consistent with the patient's recent surgery Ileal conduit with catheter and bilateral ureteral stents. There is no hydronephrosis. Small bilateral pleural effusions and bilateral dependent atelectasis KUB 10/29 IMPRESSION: 1. Most concerning for ileus. Continued follow-up recommended to exclude obstruction, however. Assessment and Plan ASSESMENT: 64 yo F with high grade MIBC, micropapillary variant; Stage IIIB pT2b pN2 M0, s/p neoadjuvant chemoand robotic anterior pelvic exenteration, B/L PLND with ileal conduit (10/28/2019). - Post-op anemia (resolved), Hgb stable - Post-op SBO, s/p diagnostic lap, release of SBO with General Surgery (11/07) - Leukocytosis (stable): h/o lymphoma; B/UCx no growth to date PLAN: - Daily KUB, demonstrates continued improvement in dilated bowel loops - NGT removed 2 dats ago. tolerating Regular diet with continued BM/Flatus - Diet per GS - Continue lovenox for DVT ppx - Encouraged ambulation - PT/OT recommending [facility] - SCr at baseline - Persistent leukocytosis, heme/onc on board. Blood and urine cultures no growth; off abx.- improved - Appreciate medicine recommendations - D/C planning today, will touch base with care management Jeremy Queen, PGY-4 11/12/2019 6:16 AM For questions/concerns please page liquefaction supervisor Urology resident * Estela Bernard, LUKAS, LD - 11/11/2019 3:36 PM EDT Nutrition Assessment Type and Reason for Visit: Reassess Nutrition Recommendations: 1. Continue with Regular diet. 2. TPN dc'd this date. 3. Monitor nutritional status. Nutrition Assessment: Diet increased to regular this afternoon, per pt consumed FL well at lunch, looking forward to Regular foods, RD obtained Roomservice menu from help desk specialist on H6 and provided to pt. Malnutrition Assessment: Malnutrition Status: Meets the criteria for severe malnutrition Context: Acute illness or injury Findings of the 6 clinical characteristics of malnutrition (Minimum of 2 out of 6 clinical characteristics is required to make the diagnosis of moderate or severe Protein Calorie Malnutrition based on AND/ASPEN Guidelines): 1. Energy Intake-Less than or equal to 50% of estimated energy requirement, Greater than or equal to 5 days 2. Weight Loss-Unable to assess, 3. Fat Loss-Moderate subcutaneous fat loss, Orbital 4. Muscle Loss-Severe muscle mass loss, Temples (temporalis muscle), Clavicles (pectoralis and deltoids), Calf (gastrocnemius) 5. Fluid Accumulation-No significant fluid accumulation, 6. Log Cutter Strength-Not measured Nutrition Risk Level: High Nutrient Needs: Estimated Daily Total Kcal: 2166-0566 (25-30) Estimated Daily Protein (g): 1.6-1.8g protein/kg IBW (55.4kgs) = 89-99g protein/day Estimated Daily Total Fluid (ml/day): per MD Nutrition Diagnosis: Problem: Severe malnutrition, In context of acute illness or injury Etiology: related to Catabolic illness, Alteration in GI function ? Signs and symptoms: as evidenced by Diet history of poor intake, Severe muscle loss, Moderate loss of subcutaneous fat Objective Information: Nutrition-Focused Physical Findings: +BS, abd soft, tender, no nausea Wound Type: Surgical Wound Current Nutrition Therapies: Oral Diet Orders: General Oral Diet intake: 51-75%, 76-100%(FL diet until this afternoon) Anthropometric Measures: Ht: 5' 4.5 (163.8 cm) Current Body Wt: 119 lb (54 kg)(bed scale 11/04/19; pt's wt was 114# 07/11 ) Admission Body Wt: 119 lb (54 kg)(no method indicated) % Weight Change: , EPIC review: (10/21/19) 119#; (07/02/19) 113# [place] Body Wt: 122 lb (55.3 kg), % [place] Body BMI Classification: BMI 18.5 - 24.9 Normal Weight Nutrition Interventions: Continue current diet, Discontinue Parenteral Nutrition Continued Inpatient Monitoring Nutrition Evaluation: Evaluation: Goals set Goals: Pt consumes >50-75% meals consistently. Monitoring: PN Intake, PN Tolerance, Skin Integrity, Weight, Pertinent Labs, Monitor Bowel Function, Monitor Hemodynamic Status Contact Number: Pager #[phone] * Albaro Mosqueda MD - 11/11/2019 2:59 PM EDT VICTOR HUGO resolved.Will sign off.Please call with questions or concerns. * Barb Connolly OTA - 11/11/2019 2:29 PM EDT Occupational Therapy Facility/Department: [facility] TELEMETRY Daily Treatment Note Discharge Recommendations: Home with assist PRN, Home with Home health OT Assessment Assessment: Continues to demo mild decrease in functional endurance but progressing toward goals and demos good safety awareness. Should be OK to discharge home with assist of family. REQUIRES OT FOLLOW UP: Yes Safety Devices Type of devices: Left in chair;Call light within reach This provider wore N95 and eye protection for duration of session. Subjective Subjective: Pt. in chair. Agrees to OT. Hopeful for discharge tomorrow. Vital Signs Patient Currently in Pain: No Objective ADL Grooming: Supervision(wash hands, comb hair at sink) LE Dressing: Supervision(don pants and socks at chair level) Toileting: Supervision Standing Balance Comment: Supv to stand at raised counter for completion of functional task. 2 trials of 2-3 minuteseach. Functional Mobility Functional Mobility Comments: Funct amb within room, supv with rollator. Toilet Transfers Equipment Used: Raised toilet seat with rails Toilet Transfer: Supervision Shower Transfers Shower Transfers Comments: Review shower transfer, pt plans to have present for first trials. has purchased a shower seat for pt. Transfers Stand Step Transfers: (to chair, supv) Sit to stand: Supervision Stand to sit: Supervision Plan Plan Comment: Cont OT per POC Goals Short term goal 1: LBD mod indep --PROGRESSING Short term goal 2: toileting mod indep --PROGRESSING Short term goal 3: grooming at sink in FWW mod indep --PROGRESSING Short term goal 4: FWW safety no cues --PROGRESSING Therapy Time Individual Concurrent Group Co-treatment Time In 1405 Time Out 1429 Minutes 24 Timed Code Treatment Minutes: 24 Minutes(Funct--1; Self--1) PEGGY Hunt * Irene Rich, SOUND TECHNICIAN SUPERVISOR - 11/11/2019 1:43 PM EDT Physical Therapy Facility/Department: [facility] TELEMETRY Daily Treatment Note NAME: Linda Kim : 1955 Date of Service: 11/11/2019 Discharge Recommendations: Home with assist PRN, Home with Home health PT PT Equipment Recommendations Equipment Needed: Yes Mobility Devices: Walker Walker: Rollator (4 Wheeled) Assessment Body structures, Functions, Activity limitations: Decreased functional mobility ;Decreased strength;Decreased endurance;Decreased balance Assessment: pt progressing towards PT goals now that abdominal pain resolved. pt able to stand and perform gait w/ rollator at supervision level today. pt had no LOB or LE buckling during gait or dynamic turing today. pt encouraged to ambulate in hallways w/ nsg staff around meal times. pt would benefit from ongoing Home PT upon Disch. Treatment Diagnosis: weakness Specific instructions for Next Treatment: functional strength/endurance training. Prognosis: Fair Decision Making: Low Complexity REQUIRES PT FOLLOW UP: Yes Activity Tolerance Activity Tolerance: Patient Tolerated treatment well;Patient limited by endurance Activity Tolerance: pt able to tolerate increased activity w/o HR above 100bpm today Patient Diagnosis(es): There were no encounter diagnoses. has a past medical history of Cancer (HCC), Follicular lymphoma (HCC), and Hematuria. has a past surgical history that includes Ectopic surgery (04/1990); Bunionectomy; skin biopsy; bladder tumor excision (06/17/2019); Vulvectomy (06/17/2019); Tunneled venous port placement;Tubal ligation; and other surgical history (11/08/2019). Restrictions Restrictions/Precautions Restrictions/Precautions: Fall Risk Required Braces or Orthoses?: No Position Activity Restriction Other position/activity restrictions: IV lines; telemetry; cooper Subjective General Chart Reviewed: Yes Additional Pertinent Hx: bladder CA Response To Previous Treatment: Patient with no complaints from previous session. 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 Pt wore mask in hallways Subjective Subjective: pt in chair, agreeable to PT. pt reports feeling much better after procedure Monday andNG tube removal. resting HR 95bpm upon arrival General Comment Comments: Malignant neoplasm of urinary bladder, s/p robotic ant. pelvic exentration with ileal conduit ostomy, vaginal bleeding Pain Screening Patient Currently in Pain: Denies(pt had no c/o pain pre Rx. ) Pain Assessment Clinical Progression: Not changed Vital Signs Patient Currently in Pain: Denies(pt had no c/o pain pre Rx. ) Orientation Orientation Overall Orientation Status: Within Normal Limits Cognition Objective Transfers Sit to Stand: Supervision Stand to sit: Supervision Comment: x1 from chair. pt able to scoot to edge of chair and push from chair arms w/o cues. Ambulation Ambulation?: Yes WB Status: no WB restrictions noted More Ambulation?: No Ambulation 1 Surface: level tile Device: Rollator Other Apparatus: (IV pole and cooper) Assistance: Stand by assistance Quality of Gait: slow but steady melany; pt able to self-correct posture during gait trial Gait Deviations: Slow Melany Distance: 120' x2 Comments: HR post gait 97bpm Stairs/Curb Stairs?: No Exercises Gluteal Sets: x 10 Knee Long Arc Quad: x 10 seated ea LE Ankle Pumps: x20 rep BLE Comments: pt encouraged to perform LAQ, glute sets and AP every hour G-Code OutComes Score AM-PAC Score Goals Short term goals Time Frame for Short term goals: 2 weeks Short term goal 1: bed mobility modified independent- NOT MET Short term goal 2: transfers modified independent- PROGRESSING Short term goal 3: ambulate 150 ft with device, supervision- PROGRESSING Short term goal 4: negotiate 3 steps with rail, supervision- NOT MET Patient Goals Patient goals : To go home. Plan Plan Times per week: 5x/wk Specific instructions for Next Treatment: functional strength/endurance training. Current Treatment Recommendations: Strengthening, Transfer Training, Balance Training, Gait Training, Functional Mobility Training, Stair training Plan Comment: Cont PT POC Safety Devices Type of devices: All fall risk precautions in place, Call light within reach, Gait belt, Left in chair, Nurse notified Restraints Initially in place: No Therapy Time Individual Concurrent Group Co-treatment Time In 1040 Time Out 1054 Minutes 14 Timed Code Treatment Minutes: 14 Minutes(gt x1) Irene Rich PTA * German Gomez MD - 11/11/2019 1:28 PM EDT [facility] Progress Note Linda Kim : 1955(64 y.o.) Date: November 11, 2019 Subjective: CC: Tachycardia HPI: Patient reclined in a chair. She is comfortable and in no distress. NG tube now out. No current abdominal pain. No chest pain. No shortness of breath. +flatus. +bowel movement. Scheduled Meds: potassium chloride 10 mEq Intravenous 4 times per day on Mon metoprolol tartrate 12.5 mg Oral BID metoclopramide 10 mg Intravenous Q6H lidocaine 1 % injection 5 mL Intradermal Once sodium chloride flush 10 mL Intravenous 2 times per day heparin flush 250 Units Intravenous 2 times per day enoxaparin 40 mg Subcutaneous Daily mometasone-formoterol 2 puff Inhalation BID Continuous Infusions: PN-Adult 2 IN 1 Central Line (Custom) PRN Meds:oxyCODONE OR oxyCODONE, acetaminophen, iopamidol, diatrizoate meglumine-sodium, ipratropium, sodium chloride flush, heparin flush, LORazepam, metoprolol, sodium chloride flush, heparin flush, sodium chloride flush, hydrOXYzine, ondansetron, labetalol, promethazine, melatonin, sodium chloride flush, morphine OR morphine Review of Systems No chest pain. No shortness of breath. Interval Pertinent History: Social History Tobacco Use Smoking status: Current Every Day Smoker Packs/day: 0.50 Years: 25.00 Pack years: 12.50 Types: Cigarettes Smokeless tobacco: Never Used Substance Use Topics Alcohol use: Not Currently Objective: Patient Vitals for the past 24 hrs: BP Temp Temp src Pulse Resp SpO2 11/11/19 0903 18 96 % 11/11/19 0845 109/73 Temporal 106 11/11/19 0840 99/66 99.2 F (37.3 C) Temporal 104 16 97 % 11/11/19 0518 124/72 98.6 F (37 C) Temporal 93 16 96 % 11/11/19 0145 112/73 98.1 F (36.7 C) Temporal 107 16 97 % 11/10/19 2120 110/71 98.8 F (37.1 C) Temporal 104 18 95 % 11/10/19 1640 132/73 98.2 F (36.8 C) Temporal 111 18 96 % Average, Min, and Max for last 24 hours Vitals: TEMPERATURE: Temp Av.6 F (37 C) Min: 98.1 F (36.7 C) Max: 99.2 F (37.3 C) RESPIRATIONS RANGE: Resp Av Min: 16 Max: 18 PULSE RANGE: Pulse Av.2 Min: 93 Max: 111 BLOOD PRESSURE RANGE: Systolic (24hrs), Av , Min:99 , Max:132 ; Diastolic (24hrs), Av, Min:66, Max:73 PULSE OXIMETRY RANGE: SpO2 Av.2 % Min: 95 % Max: 97 % I/O last 3 completed shifts: In: 1220 [P.O.:120] Out: 3600 [Urine:3100; Emesis/NG output:500] Physical Exam NAD, AAOx3, Normal affect (Nasogastric tube out) Right chest medport. Lungs Diminished bibasilar breath sounds, equal air entry bilaterally, no wheeze/rhonchi, Normal effort PERRL, Normal conjunctiva, Hearing intact No JVD, No thyroid tenderness, neck supple RRR, No murmurs. No edema. +2 pulses bilaterally Abdomen: +BS, soft, nontender to light palpation, no distension, no HSP appreciated CN II-XII grossly intact, Normal sensation, NIH = 0. Skin warm, No rash Telemetry reviewed: No significant events overnight, sinus, rate controlled, HR has been <105, currently mid 90s Lab Results Component Value Date WBC 16.4 (H) 11/11/2019 HGB 9.8 (L) 11/11/2019 HCT 30.5 (L) 11/11/2019 MCV 95.3 11/11/2019 PLT 510 (H) 11/11/2019 Lab Results Component Value Date NA 139 11/11/2019 K 3.4 11/11/2019 CL 108 11/11/2019 CO2 20 11/11/2019 BUN 45 11/11/2019 CREATININE 0.49 11/11/2019 GLUCOSE 129 11/11/2019 CALCIUM 9.0 11/11/2019 No results found for: LABA1C Additional results of thelast 24 hours have been reviewed. Assessment and Plan: Principal Problem: Malignant neoplasm of urinary bladder (HCC) Active Problems: Tachycardia Leukocytosis VICTOR HUGO (acute kidney injury) (HCC) SIRS (systemic inflammatory response syndrome) (HCC) Hypoxia Postoperative anemia due to acute blood loss Ileus (HCC) Bilateral pleural effusion Peritoneal bleeding Vaginal bleeding Severe malnutrition (HCC) Volume depletion Hyperphosphatemia Small bowel obstruction (HCC) Resolved Problems: * No resolved hospital problems. * Small bowel obstruction (SBO) S/p laparotomy, SBO release 11/07. NG tube now out, on full liquid diet Management per Primary Team SIRS (leukocytosis, tachycardia, mildly elevated procalcitonin) -leukocytosis presumed to be reactive per heme/onc - continues to improve. Monitor bandemia (none reported today, likely reactive. No other signs/symptom infection. -Blood and urine cultures no growth -course of pip-tazo completed. CT shows right posterior lung infiltrate, procalcitonin negative and no overt pneumonia symptoms. Peripheral smear reviewed. Pleural effusions - now resolved (CXR 11/04 without effusions). Inadequate pleural fluid for thoracentesis on 11/01/19 Sinus tachycardia - now resolved (likely due to pain/anxiety) Low probability V/Q scan and unremarkable echo IV metoprolol scheduled - will transition to PO metoprolol tartrate 12.5mg BID Titrate (or discontinue) depending on heart rate response. Postoperative anemia due to acute blood loss Vaginal bleeding, improving Peritoneal bleed -s/p 2 Units pRBC 10/30/19 and tranexamic acid x2 -monitor H/H trend -hgb/hct stable. Accelerated HTN -PRN labetalol (not required) BP now controlled VICTOR HUGO (SCr and BUN improved), Metabolic acidosis, hypernatremia (resolved), hyperphosphatemia (normalized), Hypokalemia -baseline Cr 0.5-0.7 Na improved with IV fluids given 11/07 (D5 1/2NS) Nephrology consulted Potassium replaced IV today Tobacco abuse, suspect underlying obstructive lung disease -started on bronchodilators -no albuterol due to possible tachycardia -recommend f/u with PCP outpt PFT -Caution with beta rodrigo in setting of possible COPD, although patient has tolerated beta blockade well inpatient. Malignancy (valvular mass and bladder cancer) (Oncology Dr. 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 Elevated platelets Likely reactive (improving) DVT Prophylaxis: SCDs and Lovenox Disposition: await test results, await clinical program consultant recommendations and await clinical improvement I spent over 51% of total time providing counseling or in coordination of care: 35 minutes regarding tachycardia discussed with patient and I personally reviewed chart, data, labs radiology reports I communicated with Dr. Mallika Mckeon today 6AM-6PM please page: Electronically signed by German Gomez MD 1:28 PM 11/11/2019 6PM-6AM please page: [facility] [place] Internal Medicine / Hospitalist * Joe Gates RCP - 11/11/2019 9:41 AM EDT Patient Evaluation Form The patient is currently receiving atrovent daily Points 0 1 2 3 4 Points Totals Pulmonary Status (-/+) History Smoking history < 20 pack years Smoking history > 20 pack years Pulmonary Disorder (acute or chronic) Severe or Chronic with Exacerbation 2 Surgical Status No Surgery Trach PEG General Surgery Lower Abdominal Thoracic or Upper Abdominal Thoracic with Pulmonary Disorder 1 Chest X-ray Clear None Ordered Chronic Changes CXR results Pending Infiltrates, atelectasis, pleural effusion, or edema Infiltrates in more than one lobe Infiltrate + Atelectasis, &/or pleural effusion 0 Respiratory Pattern Regular, RR = 12-20 Increased, RR = 21-25 [place]EL[place], irregular, or RR = 26-30 Decreased FEV1 or RR = 31-35 Severe SOB, used of of accessory muscles, or RR = > 35 0 Mental Status Alert, oriented, cooperative Confused, but follows commands Lethargic or un-able to follow commands Obtunded Comatose 0 Breath Sounds Clear to auscultation Decreased unilaterally or in bases only Decreased bilaterally Crackles or intermittent wheezes Wheezes 1 Cough Strong, spontaneous, & nonproductive Strong, spontaneous, & productive Weak, nonproductive Weak, productive or with wheezes No spontaneous cough or may require suctioning 0 Level of Activity Ambulatory Ambulatory with Assist Non-ambulatroy Paraplegic Quadriplegic 1 Triage 1 > 20 pts Triage 2 16-20 pts Triage 3 11- 15 pts Triage 4 6 - 10 pts Triage 5 0 - 5 pts TOTAL POINTS = 5 Triage Score = 4 Changing Therapy to atrovent prn * Carol Mckeon MD - 11/11/2019 8:12 AM EDT Nutrition Progress Note Linda Kim : 1955(64 y.o.) Date: November 11, 2019 CC: TPN Interval events: Doing much better, tolerating po, had large BM this a.m, very happy that she's feeling better. Savored every drop of her apple juice when allowed on clears, advanced to fulls now. Diet: PN-Adult 2 IN 1 Central Line (Custom) DIET FULL LIQUID; I/Os: Intake/Output Summary (Last 24 hours) at 11/11/2019 0812 Last data filed at 11/11/2019 0518 Gross per 24 hour Intake 120 ml Output 1900 ml Net -1780 ml Weight: ABW: Admission weight: 119 lb (54 kg) Body mass index is 20.11 kg/m . Line: Med Port R Internal Jugular (NOT SUBCLAVIAN as in nursing documentation) SL Placed: 07/2019 [place] Objective: Vitals: 11/10/19 1640 11/10/19 2120 11/11/19 0145 11/11/19 0518 BP: 132/73 110/71 112/73 124/72 Pulse: 111 104 107 93 Resp: 18 18 16 16 Temp: 98.2 F (36.8 C) 98.8 F (37.1 C) 98.1 F (36.7 C) 98.6 F (37 C) TempSrc: Temporal Temporal Temporal Temporal SpO2: 96% 95% 97% 96% Weight: Height: Physical Exam Vitals signs and nursing note reviewed. Constitutional: Comments: WD WF sitting up in chair, NG out, looks/feels so much better, NAD Cardiovascular: Rate and Rhythm: Normal rate and regular rhythm. Pulmonary: Effort: Pulmonary effort is normal. No respiratory distress. Breath sounds: No wheezing or rhonchi. Abdominal: Comments: rounded, minimal/appropriated TTP, some BS Musculoskeletal: Right lower leg: No edema. Left lower leg: No edema. Renal Panel: Recent Labs 11/09/19 0148 11/10/19 0447 11/11/19 0206 NA 145 142 139 K 4.3 3.7 3.4* CL 111* 109* 108* CO2 23 23 20* PHOS 3.7 3.2 3.9 BUN 94* 64* 45* CREATININE 1.01 0.60 0.49* MG 2.5* 2.2 2.0 Assessment: Malnutrition -patient meets ASPEN criteria for severe malnutrition-->severe loss of muscle mass, mod fat stores and less than 50% needed energy intake x 4 days with difficulty maintaining weight/intake prior to surgery, depending on supplements -since release of SBO 11/07 she has done well, tolerating po, to taper off TPN today per Dr. Neil Hypokalemia -bolus x 1 today Renal insufficiency -improving with volume repletion Bladder cancer -hematuria (bernardino blood/clots) late 2018/early 2019 initially thought to be UTI, referred to urology as outpt, cystoscopy showed a 6cm sessile/friable tumor along anterior right lateral bladder wall-->s/p transurethral resection (Dr. Coffey) on 06/17/19 -pathology: invasive high grade bladder ca -neoadjuvant chemotherapy initiated 07/2019 in [place] (Dr. Prieto), completed 10/15/2019 -s/p robotic anterior pelvic exenteration, bilat pelvic lymph node dissection, SBR for ileal conduit creation on 10/28/19 Leukocytosis -heme onc consulted for WBC 57,900 on 10/29/19, thought to be reactive, down to 25,900 today Sinus tach, increased O2 demand -started on hep gtt for PE concern evening of 10/29/19-->VQ neg 10/29 and anticoagulation stopped-->much improved High grade vulvar dysplasia -left partial simple vulvectomy 06/17/19 (Dr. Salinas), and micheal anal bx c/w anal dysplasia PLAN SUMMARY, and as above: -KCl IV bolus -decrease TPN rate by 1/2 at 4PM today, then DC TPN at 6 PM * Vesta Koehler MD - 11/11/2019 6:55 AM EDT Department of Surgery - Progress Note - Surg 4 PATIENT NAME: Linda Kim : 1955 ATTENDING PHYSICIAN: Cam Finn MD ADMIT DATE: 10/28/2019 TODAY'S DATE: 11/11/2019 SUBJECTIVE No issues overnight. Complains of minimal abdominal pain. Happy to have NGT out. No nausea or vomiting. Passing flatus and had multiple BM yesterday. OBJECTIVE VITALS: BP 124/72 Pulse 93 Temp 98.6 F (37 C) (Temporal) Resp 16 Ht 5' 4.5 (1.638 m) Wt 119 lb (54 kg) SpO2 96% BMI 20.11 kg/m INTAKE/OUTPUT: I/O last 3 completed shifts: In: 1220 [P.O.:120] Out: 2600 [Urine:2100; Emesis/NG output:500] I/O this shift: In: - Out: 1000 [Urine:1000] CONSTITUTIONAL: NAD, A&O X3. HEAD: Normocephalic, atraumatic, NGT in place NECK: Supple, trachea midline LUNGS: Resp effort easy and unlabored, chest rise equal bilaterally ABDOMEN: soft, minimally distended, aTTP, incisions c/d/i. Ileal conduit appears healthy EXT: Moving all extremities, no edema SKIN: Warm and Dry, no rashes or lesions NEURO: CN 2-12 grossly intact, no focal neurologic deficits, sensation intact bilaterally Data Recent Labs 11/09/1914711/10/1944611/11/19 0206 WBC 24.0* 20.4* 16.4* HGB 10.4* 10.3* 9.8* HCT 33.3* 31.6* 30.5* PLT 691* 629* 510* Recent Labs 11/09/1914711/10/197 11/11/19 0206 NA 145 142 139 K 4.3 3.7 3.4* CL 111* 109* 108* CO2 23 23 20* BUN 94* 64* 45* CREATININE 1.01 0.60 0.49* GLUCOSE 131* 117* 129* Recent Labs 11/09/1914711/10/1944611/11/19 0206 AST 47* 46 52* ALT 38* 34 49* BILITOT 2.8* 3.0* 2.3* ALKPHOS 244* 206* 201* Current Inpatient Medications Current Facility-Administered Medications: PN-Adult 2 IN 1 Central Line (Custom), , Intravenous, Continuous TPN oxyCODONE (ROXICODONE) immediate release tablet 5 mg, 5 mg, Oral, Q4H PRN OR oxyCODONE (ROXICODONE) immediate release tablet 10 mg, 10 mg, Oral, Q4H PRN metoclopramide (REGLAN) injection 10 mg, 10 mg, Intravenous, Q6H ipratropium (ATROVENT) 0.02 % nebulizer solution 0.5 mg, 0.5 mg, Nebulization, Daily acetaminophen (TYLENOL) tablet 650 mg, 650 mg, Per NG tube, Q6H PRN iopamidol (ISOVUE-370) 76 % injection 75 mL, 75 mL, Intravenous, ONCE PRN diatrizoate meglumine-sodium (GASTROGRAFIN) 66-10 % solution 30 mL, 30 mL, Per NG tube, ONCE PRN ipratropium (ATROVENT) 0.02 % nebulizer solution 0.5 mg, 0.5 mg, Nebulization, Q6H PRN metoprolol (LOPRESSOR) injection 10 mg, 10 mg, Intravenous, Q8H lidocaine 1 % injection 5 mL, 5 mL, Intradermal, Once sodium chloride flush 0.9 % injection 10 mL, 10 mL, Intravenous, 2 times per day sodium chloride flush 0.9 % injection 10 mL, 10 mL, Intravenous, PRN heparin flush 100 UNIT/ML injection 250 Units, 250 Units, Intravenous, 2 times per day heparin flush 100 UNIT/ML injection 250 Units, 250 Units, Intravenous, PRN LORazepam (ATIVAN) injection 0.5 mg, 0.5 mg, Intravenous, Q12H PRN metoprolol (LOPRESSOR) injection 5 mg, 5 mg, Intravenous, Q6H PRN sodium chloride flush 0.9 % injection 10 mL, 10 mL, Intracatheter, PRN heparin flush 100 UNIT/ML injection 500 Units, 500 Units, Intracatheter, PRN sodium chloride flush 0.9 % injection 20 mL, 20 mL, Intracatheter, PRN enoxaparin (LOVENOX) injection 40 mg, 40 mg, Subcutaneous, Daily hydrOXYzine (VISTARIL) capsule 25 mg, 25 mg, Per NG tube, Q4H PRN ondansetron (ZOFRAN) injection 4 mg, 4 mg, Intravenous, Q6H PRN labetalol (NORMODYNE;TRANDATE) injection 20 mg, 20 mg, Intravenous, Q4H PRN promethazine (PHENERGAN) injection 6.25 mg, 6.25 mg, Intravenous, Q6H PRN MDI Treatment, , , BID AND mometasone-formoterol (DULERA) 100-5 MCG/ACT inhaler 2 puff, 2 puff,Inhalation, BID melatonin ER tablet 2 mg, 2 mg, Oral, Nightly PRN sodium chloride flush 0.9 % injection 10 mL, 10 mL, Intravenous, PRN morphine sulfate (PF) injection 2 mg, 2 mg, Intravenous, Q2H PRN OR morphine sulfate (PF) injection 4 mg, 4 mg, Intravenous, Q2H PRN ASSESSMENT AND PLAN Principal Problem: Malignant neoplasm of urinary bladder (HCC) Active Problems: Tachycardia Leukocytosis VICTOR HUGO (acute kidney injury) (HCC) SIRS (systemic inflammatory response syndrome) (HCC) Hypoxia Postoperative anemia due to acute blood loss Ileus (HCC) Bilateral pleural effusion Peritoneal bleeding Vaginal bleeding Severe malnutrition (HCC) Volume depletion Hyperphosphatemia Small bowel obstruction (HCC) Resolved Problems: * No resolved hospital problems. * 64 y.o. female with hx of bladder cancer s/p robotic pelvic exenteration, B/L PLND with ileal conduit 10/28/19 now s/p diagnostic laparoscopy with release SBO 11/07 -ok to advance to fulls today -remains on TPN, can likely start weaning -pain control -OOB ambulate -serial exams -will follow Vesta Koehler MD PGY-4 11/11/2019 6:57 AM Associated attestation - Ruben Neil MD - 11/11/2019 7:24 AM EDT [facility] - Surgery [facility] Physicians Surgery Patient Name: Linda Kim Date: 11/11/19 Doing great, bowel movements, start full liquids today, stop TPN. BP 124/72 Pulse 93 Temp 98.6 F (37 C) (Temporal) Resp 16 Ht 5' 4.5 (1.638 m) Wt 119 lb (54 kg) SpO2 96% BMI 20.11 kg/m CBC: Recent Labs 11/09/19 0148 11/10/19 0447 11/11/19 0206 WBC 24.0* 20.4* 16.4* HGB 10.4* 10.3* 9.8* HCT 33.3* 31.6* 30.5* PLT 691* 629* 510* BMP: Recent Labs 11/09/19 0148 11/10/197 11/11/19 0206 NA 145 142 139 K 4.3 3.7 3.4* CL 111* 109* 108* CO2 23 23 20* BUN 94* 64* 45* CREATININE 1.01 0.60 0.49* GLUCOSE 131* 117* 129* Hepatic: Recent Labs 11/09/19 0148 11/10/197 11/11/19 0206 ALKPHOS 244* 206* 201* ALT 38* 34 49* AST 47* 46 52* PROT 7.0 6.6 6.2* BILITOT 2.8* 3.0* 2.3* BILIDIR 0.3 0.7* 0.1 LABALBU 3.8 3.5 3.4* Abdomen: Soft, nontender, nondistended. Plan: Resolution of bowel obstruction, full liquid diet today stop TPN Anticipate discharge on 11/12/2019 I personally supervised my Resident/Surgical Fellow in the evaluation and management of Linda Kim in the development of a treatment plan for this patient. I personally interviewed the patient and performed an individual physical examination. In addition, I discussed the patient's condition and treatment options with them. I have also reviewed and agree with the past medical, family and social history and care plan unless otherwise noted. All of the patient's questions were answered. * Didier Coffey MD - 11/11/2019 6:42 AM EDT UROLOGY PROGRESS NOTE PATIENT NAME: Linda Kim DATE OF : 1955 ADMISSION DATE: 10/28/2019 5:41 AM TODAY'S DATE: 11/11/2019 Subjective No acute events NGT removed yesterday Tolerating FLD +flatus and BM yesterday Ambulating Objective VS: BP 124/72 Pulse 93 Temp 98.6 F (37 C) (Temporal) Resp 16 Ht 5' 4.5 (1.638 m) Wt 119 lb (54 kg) SpO2 96% BMI 20.11 kg/m Vitals: 11/11/19 0518 BP: 124/72 Pulse: 93 Resp: 16 Temp: 98.6 F (37 C) SpO2: 96% I & O - 24hr: Intake/Output Summary (Last 24 hours) at 11/11/2019 0642 Last data filed at 11/11/2019 0518 Gross per 24 hour Intake 1220 ml Output 3600 ml Net -2380 ml Physical Exam: General: HEENT: Resp: Abdomen: No acute distress normocephalic Normal effort Soft, appropriately TTP, minimally distended, incisions c/d/i : Ileal conduit with pink stoma, with mucus overlying, and B/L stents extruding draining yellow urine Skin: Skin color, texture, turgor normal, no rashes or lesions Labs and Imaging Studies Labs: CBC: Recent Labs 11/09/19 0148 11/10/197 11/11/19 0206 WBC 24.0* 20.4* 16.4* HGB 10.4* 10.3* 9.8* HCT 33.3* 31.6* 30.5* MCV 97.4 95.4 95.3 PLT 691* 629* 510* BMP: Recent Labs 11/09/19 0148 11/10/19 0447 11/11/19 0206 NA 145 142 139 K 4.3 3.7 3.4* CL 111* 109* 108* CO2 23 23 20* PHOS 3.7 3.2 3.9 BUN 94* 64* 45* CREATININE 1.01 0.60 0.49* Magnesium: Lab Results Component Value Date MG 2.0 11/11/2019 Phosphate: Lab Results Component Value Date PHOS 3.9 11/11/2019 PT/INR: No results for input(s): PROTIME, INR in the last 72 hours. U/A: Lab Results Component Value Date LEUKOCYTESUR 250 10/31/2019 WBCUA 11-25 10/31/2019 RBCUA 51-100 10/31/2019 BACTERIA Few 10/31/2019 GLUCOSEU Normal 10/31/2019 Urine Culture: Component Value Date/Time LABURIN No growth (<1,000 CFU/ml). 10/31/20192026 Imaging Studies: CT A/P without contrast 10/29 IMPRESSION: Free intraperitoneal fluid appears denser than simple ascites and is suspicious for peritoneal blood CTR: I spoke with Raquel, the patient's nurse via telephone at 10:12 AM 10/30/2019. Abdominal wall air, free intraperitoneal air and pelvic extraperitoneal air consistent with the patient's recent surgery Ileal conduit with catheter and bilateral ureteral stents. There is no hydronephrosis. Small bilateral pleural effusions and bilateral dependent atelectasis KUB 10/29 IMPRESSION: 1. Most concerning for ileus. Continued follow-up recommended to exclude obstruction, however. Assessment and Plan ASSESMENT: 64 yo F with high grade MIBC, micropapillary variant; Stage IIIB pT2b pN2 M0, s/p neoadjuvant chemoand robotic anterior pelvic exenteration, B/L PLND with ileal conduit (10/28/2019). - Post-op anemia (resolved), Hgb stable - Post-op SBO, s/p diagnostic lap, release of SBO with General Surgery (11/07) - Leukocytosis (stable): h/o lymphoma; B/UCx no growth to date PLAN: - Daily KUB, F/u this AM, appears slightly improved vs yesterday, although still has dilated loops. - NGT removed yesterday. tolerating FLD - Diet per GS - Continue lovenox for DVT ppx - Encouraged ambulation - PT/OT recommending home with assist PRN vs. Home health - SCr at baseline - Persistent leukocytosis, heme/onc on board. Blood and urine cultures no growth; off abx.- improved - Appreciate medicine recommendations - D/C planning in next couple days Jeremy Queen, PGY-4 11/11/2019 6:42 AM For questions/concerns please page liquefaction supervisor Urology resident The history and physical has been reviewed. The pertinent findings from the history of present illness, past medical history, family history, social history, review of systems have been noted and confirmed that are unchanged. Discussed with the urology resident. Agree with assessment and plan * Jorge Starr MD - 11/10/2019 11:36 AM EDT [facility] [address] [place] [address] Progress Note Subjective: Patient seen and examined today. We are following this patient for victor hugo. - feels better - tolerated some po intake - good UOP Scheduled Meds: metoclopramide 10 mg Intravenous Q6H ipratropium 0.5 mg Nebulization Daily metoprolol 10 mg Intravenous Q8H lidocaine 1 % injection 5 mL Intradermal Once sodium chloride flush 10 mL Intravenous 2 times per day heparin flush 250 Units Intravenous 2 times per day enoxaparin 40 mg Subcutaneous Daily mometasone-formoterol 2 puff Inhalation BID Continuous Infusions: PN-Adult 2 IN 1 Central Line (Custom) PN-Adult 2 IN 1 Central Line (Custom) 100 mL/hr at 11/10/19 0706 PRN Meds:oxyCODONE OR oxyCODONE, acetaminophen, iopamidol, diatrizoate meglumine-sodium, ipratropium, sodium chloride flush, heparin flush, LORazepam, metoprolol, sodium chloride flush, heparin flush, sodium chloride flush, hydrOXYzine, ondansetron, labetalol, promethazine, melatonin, sodium chloride flush, morphine OR morphine Vitals: BP 139/86 Pulse 112 Temp 98.6 F (37 C) (Temporal) Resp 18 Ht 5' 4.5 (1.638 m) Wt 119 lb (54 kg) SpO2 95% BMI 20.11 kg/m BLOOD PRESSURE RANGE: Systolic (24hrs), Av , Min:112 , Max:139 ; Diastolic (24hrs), Av, Min:71, Max:86 24HR INTAKE/OUTPUT: Intake/Output Summary (Last 24 hours) at 11/10/2019 1136 Last data filed at 11/10/2019 0706 Gross per 24 hour Intake 1100 ml Output 3375 ml Net -2275 ml Physical exam: Thin, alert and responsive, no acute distress s1s2 regular B/S equal and clear Light yellow urine No peripheral edema Data: Labs: Recent Labs 11/08/19 0339 11/09/19 0148 11/10/19 0447 WBC 28.7* 24.0* 20.4* HGB 11.1* 10.4* 10.3* HCT 34.4* 33.3* 31.6* MCV 96.8 97.4 95.4 PLT 699* 691* 629* Recent Labs 11/08/19 0339 11/09/19 0148 11/10/19 0447 NA 147* 145 142 K 5.0 4.3 3.7 CL 112* 111* 109* CO2 23 23 23 GLUCOSE 120* 131* 117* PHOS 6.8* 3.7 3.2 MG 2.8* 2.5* 2.2 BUN 86* 94* 64* CREATININE 1.23 1.01 0.60 Ionized Calcium: Lab Results Component Value Date IONCA 4.70 11/10/2019 Magnesium: Lab Results Component Value Date MG 2.2 11/10/2019 Phosphorus: Lab Results Component Value Date PHOS 3.2 11/10/2019 U/A: Lab Results Component Value Date COLORU Colorless 10/31/2019 WBCUA 11-25 10/31/2019 RBCUA 51-100 10/31/2019 BACTERIA Few 10/31/2019 LEUKOCYTESUR 250 10/31/2019 UROBILINOGEN Normal 10/31/2019 BILIRUBINUR Negative 10/31/2019 GLUCOSEU Normal 10/31/2019 Urine Culture: No components found for: CURINE Blood Culture: No components found for: CBLOOD, CFUNGUSBL Blood Culture from Central Line: No components found for: CBLOODLN Imaging: none Assessment / Plan: 64 y.o. female with hx bladder CA s/p robotic pelvic exenteration with ileal conduit on 10/28/19 alsos/p diagnostic laparoscopy with release of sbo on 11/07. Nephrology following for victor hugo 1. VICTOR HUGO - baseline Scr: 0.49mg/dL - acute insult secondary to pre-renal azotemia - Scr: peaked at 1.23mg/dL and improved to 0.6mg/dL today - currently on TPN - started on some po intake - good UOP 2. Electrolytes: - mild hypernatremia - resolved 3. Acid/base: - appears compensated 4. Calcium/phosphorous: - on TPN 5. Anemia: - hgb stable 10.3 6. Medications: - reviewed Thank you, please call [phone] with any concerns. Jroge Starr M.D 11/10/2019 11:36 AM * Carol Mckeon MD - 11/10/2019 10:09 AM EDT NUTRITION/TPN NOTE: S/P laparoscopic release of SBO 11/08/19. -BUN much improved, CrCl up to 80, electrolytes all decreasing into normal range-->will need fairly large increase in potassium and phos today -add back small amount of sodium -check ionized calcium in a.m -sugars good range for tpn KEEP TPN TV at 2400cc today * German Gomez MD - 11/10/2019 9:46 AM EDT [facility] Progress Note Linda Kim : 1955(64 y.o.) Date: November 10, 2019 Subjective: CC: Tachycardia HPI: Patient laying in bed. She is comfortable and in no distress. No current abdominal pain. No chest pain. No shortness of breath. +flatus. No bowel movement. Scheduled Meds: metoclopramide 10 mg Intravenous Q6H ipratropium 0.5 mg Nebulization Daily metoprolol 10 mg Intravenous Q8H lidocaine 1 % injection 5 mL Intradermal Once sodium chloride flush 10 mL Intravenous 2 times per day heparin flush 250 Units Intravenous 2 times per day enoxaparin 40 mg Subcutaneous Daily mometasone-formoterol 2 puff Inhalation BID Continuous Infusions: PN-Adult 2 IN 1 Central Line (Custom) 100 mL/hr at 11/10/19 0706 PRN Meds:oxyCODONE OR oxyCODONE, acetaminophen, iopamidol, diatrizoate meglumine-sodium, ipratropium, sodium chloride flush, heparin flush, LORazepam, metoprolol, sodium chloride flush, heparin flush, sodium chloride flush, hydrOXYzine, ondansetron, labetalol, promethazine, melatonin, sodium chloride flush, morphine OR morphine Review of Systems No chest pain. No shortness of breath. Interval Pertinent History: Social History Tobacco Use Smoking status: Current Every Day Smoker Packs/day: 0.50 Years: 25.00 Pack years: 12.50 Types: Cigarettes Smokeless tobacco: Never Used Substance Use Topics Alcohol use: Not Currently Objective: Patient Vitals for the past 24 hrs: BP Temp Temp src Pulse Resp SpO2 11/10/19 0844 139/86 98.6 F (37 C) Temporal 112 18 95 % 11/10/19 0824 95 % 11/10/19 0537 127/85 98 F (36.7 C) Temporal 103 18 96 % 11/10/19 0127 112/71 98.5 F (36.9 C) Temporal 86 18 95 % 11/09/19 2124 126/75 98.3 F (36.8 C) Temporal 99 17 94 % 11/09/19 1630 116/77 98.6 F (37 C) Temporal 101 16 96 % 11/09/19 1217 132/71 98.7 F (37.1 C) Temporal 94 16 96 % Average, Min, and Max for last 24 hours Vitals: TEMPERATURE: Temp Av.5 F (36.9 C) Min: 98 F (36.7 C) Max: 98.7 F (37.1 C) RESPIRATIONS RANGE: Resp Av.2 Min: 16 Max: 18 PULSE RANGE: Pulse Av.2 Min: 86 Max: 112 BLOOD PRESSURE RANGE: Systolic (24hrs), Av , Min:112 , Max:139 ; Diastolic (24hrs), Av, Min:71, Max:86 PULSE OXIMETRY RANGE: SpO2 Av.3 % Min: 94 % Max: 96 % I/O last 3 completed shifts: In: 50 [P.O.:50] Out: 1675 [Urine:975; Emesis/NG output:700] Physical Exam NAD, AAOx3, Normal affect Nasogastric tube in place Right chest medport. No surrounding edema/erythema. Lungs Diminished bibasilar breath sounds, equal air entry bilaterally, no wheeze/rhonchi, Normal effort PERRL, Normal conjunctiva, Hearing intact No JVD, No thyroid tenderness, neck supple RRR, No murmurs. No edema. +2 pulses bilaterally Abdomen: +BS, soft, nontender to light palpation, mild distension (improving), no HSP appreciated CN II-XII grossly intact, Normal sensation, NIH = 0. Skin warm, No rash Telemetry reviewed: No significant events overnight, sinus, rate controlled Lab Results Component Value Date WBC 20.4 (H) 11/10/2019 HGB 10.3 (L) 11/10/2019 HCT 31.6 (L) 11/10/2019 MCV 95.4 11/10/2019 PLT 629 (H) 11/10/2019 Lab Results Component Value Date NA 142 11/10/2019 K 3.7 11/10/2019 CL 109 11/10/2019 CO2 23 11/10/2019 BUN 64 11/10/2019 CREATININE 0.60 11/10/2019 GLUCOSE 117 11/10/2019 CALCIUM 9.4 11/10/2019 No results found for: LABA1C Additional results of thelast 24 hours have been reviewed. Assessment and Plan: Principal Problem: Malignant neoplasm of urinary bladder (HCC) Active Problems: Tachycardia Leukocytosis VICTOR HUGO (acute kidney injury) (HCC) SIRS (systemic inflammatory response syndrome) (HCC) Hypoxia Postoperative anemia due to acute blood loss Ileus (HCC) Bilateral pleural effusion Peritoneal bleeding Vaginal bleeding Severe malnutrition (HCC) Volume depletion Hyperphosphatemia Small bowel obstruction (HCC) Resolved Problems: * No resolved hospital problems. * Small bowel obstruction (SBO) S/p laparotomy, SBO release 11/07. -NPO, TPN, NGT Management per Primary Team SIRS (leukocytosis, tachycardia, mildly elevated procalcitonin) -leukocytosis presumed to be reactive per heme/onc - improving. Monitor bandemia (7%), likely reactive. No other signs/symptom infection. -Blood and urine cultures no growth -course of pip-tazo completed. CT shows right posterior lung infiltrate, procalcitonin negative and no overt pneumonia symptoms. Peripheral smear reviewed. Pleural effusions - now resolved (CXR 11/04 without effusions). Inadequate pleural fluid for thoracentesis on 11/01/19 Sinus tachycardia - overall improved but still intermittent (likely due to pain/anxiety) Low probability V/Q scan and unremarkable echo IV metoprolol scheduled - continue for now, may decrease soon if HR and BPs controlled Change to PO metoprolol when taking PO. Monitor on telemetry Postoperative anemia due to acute blood loss Vaginal bleeding, improving Peritoneal bleed -s/p 2 Units pRBC 10/30/19 and tranexamic acid x2 -monitor H/H trend -hgb/hct stable. Accelerated HTN -PRN labetalol (not required) BP now controlled VICTOR HUGO (SCr and BUN improved), Metabolic acidosis (resolved), hypernatremia (resolved), hyperphosphatemia (normalized) -baseline Cr 0.5-0.7 Na improved with IV fluids given 11/07 (D5 1/2NS) Nephrology consulted Tobacco abuse, suspect underlying obstructive lung disease -started on bronchodilators -no albuterol due to possible tachycardia -recommend f/u with PCP outpt PFT Malignancy (valvular mass and bladder cancer) (Oncology Dr. 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 Abdominal pain is improving post-surgery Alk phos improved Bilateral iliac artery stenosis May need further testing, will await surgery recommendations. Elevated platelets Likely reactive (improving) DVT Prophylaxis: SCDs and Lovenox Disposition: await test results, await clinical program consultant recommendations and await clinical improvement I spent over 51% of total time providing counseling or in coordination of care: 35 minutes regarding tachycardia discussed with patient and I personally reviewed chart, data, labs radiology reports 6AM-6PM please page: Electronically signed by German Gomez MD 9:46 AM 11/10/2019 6PM-6AM please page: [facility] [place] Internal Medicine / Hospitalist * Matteo Layne MD - 11/10/2019 9:34 AM EDT UROLOGY PROGRESS NOTE PATIENT NAME: Linda Kim DATE OF : 1955 ADMISSION DATE: 10/28/2019 5:41 AM TODAY'S DATE: 11/10/2019 Subjective Feels better this morning. Passed increased amount of flatus. No BM. Thinks she feels less distended. Objective VS: BP 139/86 Pulse 112 Temp 98.6 F (37 C) (Temporal) Resp 18 Ht 5' 4.5 (1.638 m) Wt 119lb (54 kg) SpO2 95% BMI 20.11 kg/m Vitals: 11/10/19 0844 BP: 139/86 Pulse: 112 Resp: 18 Temp: 98.6 F (37 C) SpO2: 95% I & O - 24hr: Intake/Output Summary (Last 24 hours) at 11/10/2019 0934 Last data filed at 11/10/2019 0706 Gross per 24 hour Intake 1100 ml Output 3375 ml Net -2275 ml Physical Exam: General: HEENT: Resp: Abdomen: No acute distress NG tube with bilious drainage Normal effort Soft, appropriately TTP, mildly distended, incisions c/d/i : Ileal conduit with pink stoma, with mucus overlying, and B/L stents extruding draining yellow urine Skin: Skin color, texture, turgor normal, no rashes or lesions Labs and Imaging Studies Labs: CBC: Recent Labs 11/08/19 0339 11/09/19 0148 11/10/19 0447 WBC 28.7* 24.0* 20.4* HGB 11.1* 10.4* 10.3* HCT 34.4* 33.3* 31.6* MCV 96.8 97.4 95.4 PLT 699* 691* 629* BMP: Recent Labs 11/08/19 0339 11/09/19 0148 11/10/19 0447 NA 147* 145 142 K 5.0 4.3 3.7 CL 112* 111* 109* CO2 23 23 23 PHOS 6.8* 3.7 3.2 BUN 86* 94* 64* CREATININE 1.23 1.01 0.60 Magnesium: Lab Results Component Value Date MG 2.2 11/10/2019 Phosphate: Lab Results Component Value Date PHOS 3.2 11/10/2019 PT/INR: No results for input(s): PROTIME, INR in the last 72 hours. U/A: Lab Results Component Value Date LEUKOCYTESUR 250 10/31/2019 WBCUA 11-25 10/31/2019 RBCUA 51-100 10/31/2019 BACTERIA Few 10/31/2019 GLUCOSEU Normal 10/31/2019 Urine Culture: Component Value Date/Time LABURIN No growth (<1,000 CFU/ml). 10/31/20192026 Imaging Studies: CT A/P without contrast 10/29 IMPRESSION: Free intraperitoneal fluid appears denser than simple ascites and is suspicious for peritoneal blood CTR: I spoke with Raquel, the patient's nurse via telephone at 10:12 AM 10/30/2019. Abdominal wall air, free intraperitoneal air and pelvic extraperitoneal air consistent with the patient's recent surgery Ileal conduit with catheter and bilateral ureteral stents. There is no hydronephrosis. Small bilateral pleural effusions and bilateral dependent atelectasis KUB 10/29 IMPRESSION: 1. Most concerning for ileus. Continued follow-up recommended to exclude obstruction, however. Assessment and Plan ASSESMENT: 64 yo F with high grade MIBC, micropapillary variant; Stage IIIB pT2b pN2 M0, s/p neoadjuvant chemoand robotic anterior pelvic exenteration, B/L PLND with ileal conduit (10/28/2019). - Post-op anemia (resolved), Hgb stable - Post-op SBO, s/p diagnostic lap, release of SBO with General Surgery (11/07) - Leukocytosis (stable): h/o lymphoma; B/UCx no growth to date PLAN: - Daily KUB, F/u this AM, appears slightly improved vs yesterday, although still has dilated loops. - NGT to LIWS - Q12H suppositories - Continue TPN until able to tolerate PO - Monitor for bowel function - NG/Diet per General Surgery, hopeful that patient will open up in the next day or two - Continue lovenox for DVT ppx - Encouraged ambulation - PT/OT recommending home with assist PRN vs. Home health - SCr at baseline - Persistent leukocytosis, heme/onc on board. Blood and urine cultures no growth; off abx. - Appreciate medicine recommendations Matteo Layne, PGY-3 11/10/2019 9:34 AM For questions/concerns please page liquefaction supervisor Urology resident * Merlin Harrison MD - 11/10/2019 7:28 AM EDT Department of Surgery - Progress Note - Surg 4 PATIENT NAME: Linda Kim : 1955 ATTENDING PHYSICIAN: Cam Finn MD ADMIT DATE: 10/28/2019 TODAY'S DATE: 11/10/2019 SUBJECTIVE NAEON Pain well controlled, states she feels better than yesterday, abdominal pressure much improved NG in place No fevers or chills Feels less bloated today No BM, passing flatus OBJECTIVE VITALS: BP 127/85 Pulse 103 Temp 98 F (36.7 C) (Temporal) Resp 18 Ht 5' 4.5 (1.638 m) Wt119 lb (54 kg) SpO2 96% BMI 20.11 kg/m INTAKE/OUTPUT: I/O last 3 completed shifts: In: 50 [P.O.:50] Out: 1675 [Urine:975; Emesis/NG output:700] I/O this shift: In: 1100 Out: 1700 [Urine:1200; Emesis/NG output:500] CONSTITUTIONAL: NAD, A&O X3. HEAD: Normocephalic, atraumatic, NGT in place NECK: Supple, trachea midline LUNGS: Resp effort easy and unlabored, chest rise equal bilaterally ABDOMEN: soft, minimally distended, aTTP, incisions c/d/i. Ileal conduit appears healthy EXT: Moving all extremities, no edema SKIN: Warm and Dry, no rashes or lesions NEURO: CN 2-12 grossly intact, no focal neurologic deficits, sensation intact bilaterally Data Recent Labs 11/08/19 03311/09/198 11/10/19 0447 WBC 28.7* 24.0* 20.4* HGB 11.1* 10.4* 10.3* HCT 34.4* 33.3* 31.6* PLT 699* 691* 629* Recent Labs 11/08/19 03311/09/19 0148 11/10/19 0447 NA 147* 145 142 K 5.0 4.3 3.7 CL 112* 111* 109* CO2 23 23 23 BUN 86* 94* 64* CREATININE 1.23 1.01 0.60 GLUCOSE 120* 131* 117* Recent Labs 11/08/19 0339 11/09/19 0148 11/10/19 0447 AST 61* 47* 46 ALT 55* 38* 34 BILITOT 3.8* 2.8* 3.0* ALKPHOS 305* 244* 206* Current Inpatient Medications Current Facility-Administered Medications: oxyCODONE (ROXICODONE) immediate release tablet 5 mg, 5 mg, Oral, Q4H PRN OR oxyCODONE (ROXICODONE) immediate release tablet 10 mg, 10 mg, Oral, Q4H PRN PN-Adult 2 IN 1 Central Line (Custom), , Intravenous, Continuous TPN metoclopramide (REGLAN) injection 10 mg, 10 mg, Intravenous, Q6H ipratropium (ATROVENT) 0.02 % nebulizer solution 0.5 mg, 0.5 mg, Nebulization, Daily acetaminophen (TYLENOL) tablet 650 mg, 650 mg, Per NG tube, Q6H PRN iopamidol (ISOVUE-370) 76 % injection 75 mL, 75 mL, Intravenous, ONCE PRN diatrizoate meglumine-sodium (GASTROGRAFIN) 66-10 % solution 30 mL, 30 mL, Per NG tube, ONCE PRN ipratropium (ATROVENT) 0.02 % nebulizer solution 0.5 mg, 0.5 mg, Nebulization, Q6H PRN metoprolol (LOPRESSOR) injection 10 mg, 10 mg, Intravenous, Q8H lidocaine 1 % injection 5 mL, 5 mL, Intradermal, Once sodium chloride flush 0.9 % injection 10 mL, 10 mL, Intravenous, 2 times per day sodium chloride flush 0.9 % injection 10 mL, 10 mL, Intravenous, PRN heparin flush 100 UNIT/ML injection 250 Units, 250 Units, Intravenous, 2 times per day heparin flush 100 UNIT/ML injection 250 Units, 250 Units, Intravenous, PRN LORazepam (ATIVAN) injection 0.5 mg, 0.5 mg, Intravenous, Q12H PRN metoprolol (LOPRESSOR) injection 5 mg, 5 mg, Intravenous, Q6H PRN sodium chloride flush 0.9 % injection 10 mL, 10 mL, Intracatheter, PRN heparin flush 100 UNIT/ML injection 500 Units, 500 Units, Intracatheter, PRN sodium chloride flush 0.9 % injection 20 mL, 20 mL, Intracatheter, PRN enoxaparin (LOVENOX) injection 40 mg, 40 mg, Subcutaneous, Daily hydrOXYzine (VISTARIL) capsule 25 mg, 25 mg, Per NG tube, Q4H PRN ondansetron (ZOFRAN) injection 4 mg, 4 mg, Intravenous, Q6H PRN labetalol (NORMODYNE;TRANDATE) injection 20 mg, 20 mg, Intravenous, Q4H PRN promethazine (PHENERGAN) injection 6.25 mg, 6.25 mg, Intravenous, Q6H PRN MDI Treatment, , , BID AND mometasone-formoterol (DULERA) 100-5 MCG/ACT inhaler 2 puff, 2 puff,Inhalation, BID melatonin ER tablet 2 mg, 2 mg, Oral, Nightly PRN sodium chloride flush 0.9 % injection 10 mL, 10 mL, Intravenous, PRN morphine sulfate (PF) injection 2 mg, 2 mg, Intravenous, Q2H PRN OR morphine sulfate (PF) injection 4 mg, 4 mg, Intravenous, Q2H PRN ASSESSMENT AND PLAN Principal Problem: Malignant neoplasm of urinary bladder (HCC) Active Problems: Tachycardia Leukocytosis VICTOR HUGO (acute kidney injury) (HCC) SIRS (systemic inflammatory response syndrome) (HCC) Hypoxia Postoperative anemia due to acute blood loss Ileus (HCC) Bilateral pleural effusion Peritoneal bleeding Vaginal bleeding Severe malnutrition (HCC) Volume depletion Hyperphosphatemia Small bowel obstruction (HCC) Resolved Problems: * No resolved hospital problems. * 64 y.o. female with hx of bladder cancer s/p robotic pelvic exenteration, B/L PLND with ileal conduit 10/28/19 now s/p diagnostic laparoscopy with release SBO 11/07 -NPO, IVF -pull NGT today if KUB looks good -KUB this AM pending, will follow up -OOB ambulate -monitor for bowel function, passing flatus -serial exams -anticipate continued improvement in next day or two -will follow #[id number] PGY-3 General surgery Associated attestation - Ruben Neil MD - 11/10/2019 9:44 AM EDT [facility] Surgery Patient Name: Linda Kim Date: 11/10/19 Having a lot of flatus, marked improvement. Pressure from her abdomen is resolved. Only 500 mL overnight from the NG. BP 139/86 Pulse 112 Temp 98.6 F (37 C) (Temporal) Resp 18 Ht 5' 4.5 (1.638 m) Wt 119 lb (54 kg) SpO2 95% BMI 20.11 kg/m CBC: Recent Labs 11/08/19 0339 11/09/19 0148 11/10/19 0447 WBC 28.7* 24.0* 20.4* HGB 11.1* 10.4* 10.3* HCT 34.4* 33.3* 31.6* PLT 699* 691* 629* BMP: Recent Labs 11/08/19 0339 11/09/19 0148 11/10/19 0447 NA 147* 145 142 K 5.0 4.3 3.7 CL 112* 111* 109* CO2 23 23 23 BUN 86* 94* 64* CREATININE 1.23 1.01 0.60 GLUCOSE 120* 131* 117* Hepatic: Recent Labs 11/08/19 0339 11/09/19 0148 11/10/19 0447 ALKPHOS 305* 244* 206* ALT 55* 38* 34 AST 61* 47* 46 PROT 7.7 7.0 6.6 BILITOT 3.8* 2.8* 3.0* BILIDIR 1.0* 0.3 0.7* LABALBU 4.1 3.8 3.5 Abdomen: Soft, nontender, less distended. Plan: POD #2, laparoscopic release of small bowel obstruction Hopefully remove the NG tube today, we will hold on diet until tomorrow Increase activity VICTOR HUGO, improved and creatinine normal with good urine output I personally supervised my Resident/Surgical Fellow in the evaluation and management of Linda Kim in the development of a treatment plan for this patient. I personally interviewed the patient and performed an individual physical examination. In addition, I discussed the patient's condition and treatment options with them. I have also reviewed and agree with the past medical, family and social history and care plan unless otherwise noted. All of the patient's questions were answered. * German Gomez MD - 11/09/2019 3:13 PM EDT [facility] Progress Note Linda Kim : 1955(64 y.o.) Date: November 09, 2019 Subjective: CC: Tachycardia HPI: Patient in recliner again. She is comfortable and in no distress. S/p laparoscopy with release of small bowel obstruction yesterday. Mild abdominal pain, but this is controlled. No chest pain. No shortness of breath. +flatus. No bowel movement. Scheduled Meds: metoclopramide 10 mg Intravenous Q6H ipratropium 0.5 mg Nebulization Daily metoprolol 10 mg Intravenous Q8H lidocaine 1 % injection 5 mL Intradermal Once sodium chloride flush 10 mL Intravenous 2 times per day heparin flush 250 Units Intravenous 2 times per day enoxaparin 40 mg Subcutaneous Daily mometasone-formoterol 2 puff Inhalation BID Continuous Infusions: PN-Adult 2 IN 1 Central Line (Custom) PN-Adult 2 IN 1 Central Line (Custom) 100 mL/hr at 11/08/19 1824 PRN Meds:oxyCODONE OR oxyCODONE, acetaminophen, iopamidol, diatrizoate meglumine-sodium, ipratropium, sodium chloride flush, heparin flush, LORazepam, metoprolol, sodium chloride flush, heparin flush, sodium chloride flush, hydrOXYzine, ondansetron, labetalol, promethazine, melatonin, sodium chloride flush, morphine OR morphine Review of Systems No chest pain. No shortness of breath. Interval Pertinent History: Social History Tobacco Use Smoking status: Current Every Day Smoker Packs/day: 0.50 Years: 25.00 Pack years: 12.50 Types: Cigarettes Smokeless tobacco: Never Used Substance Use Topics Alcohol use: Not Currently Objective: Patient Vitals for the past 24 hrs: BP Temp Temp src Pulse Resp SpO2 11/09/19 1217 132/71 98.7 F (37.1 C) Temporal 94 16 96 % 11/09/19 0920 133/71 98.4 F (36.9 C) Temporal 91 16 96 % 11/09/19 0827 94 % 11/09/19 0553 117/70 98.9 F (37.2 C) Temporal 101 20 94 % 11/09/19 0326 127/77 97.8 F (36.6 C) Temporal 103 20 93 % 11/08/19 2111 100/72 97.6 F (36.4 C) Temporal 99 20 92 % 11/08/19 1735 (!) 122/90 98.3 F (36.8 C) Temporal 116 20 92 % 11/08/19 1715 133/83 114 16 96 % 11/08/19 1700 131/87 115 14 94 % 11/08/19 1645 (!) 156/86 110 17 100 % 11/08/19 1632 134/76 97.6 F (36.4 C) Temporal 110 15 100 % Average, Min, and Max for last 24 hours Vitals: TEMPERATURE: Temp Av.2 F (36.8 C) Min: 97.6 F (36.4 C) Max: 98.9 F (37.2 C) RESPIRATIONS RANGE: Resp Av.4 Min: 14 Max: 20 PULSE RANGE: Pulse Av.3 Min: 91 Max: 116 BLOOD PRESSURE RANGE: Systolic (24hrs), Av , Min:100 , Max:156 ; Diastolic (24hrs), Av, Min:70, Max:90 PULSE OXIMETRY RANGE: SpO2 Av.2 % Min: 92 % Max: 100 % I/O last 3 completed shifts: In: 2416 [P.O.:150; I.V.:1100] Out: 1450 [Urine:650; Emesis/NG output:750; Blood:50] Physical Exam NAD, AAOx3, Normal affect Nasogastric tube in place Right chest medport. Lungs Diminished bibasilar breath sounds, equal air entry bilaterally, no wheeze/rhonchi, Normal effort PERRL, Normal conjunctiva, Hearing intact No JVD, No thyroid tenderness, neck supple RRR, No murmurs. No edema. +2 pulses bilaterally Abdomen: +BS, soft, nontender to light palpation, mild distension (improved), no HSP appreciated Cooper: yellow urine CN II-XII grossly intact, Normal sensation, NIH = 0. Skin warm, No rash Telemetry reviewed: No significant events overnight, sinus, rate controlled Lab Results Component Value Date WBC 24.0 (H) 11/09/2019 HGB 10.4 (L) 11/09/2019 HCT 33.3 (L) 11/09/2019 MCV 97.4 11/09/2019 PLT 691 (H) 11/09/2019 Lab Results Component Value Date NA 145 11/09/2019 K 4.3 11/09/2019 CL 111 11/09/2019 CO2 23 11/09/2019 BUN 94 11/09/2019 CREATININE 1.01 11/09/2019 GLUCOSE 131 11/09/2019 CALCIUM 9.7 11/09/2019 No results found for: LABA1C Additional results of thelast 24 hours have been reviewed. Assessment and Plan: Principal Problem: Malignant neoplasm of urinary bladder (HCC) Active Problems: Tachycardia Leukocytosis VICTOR HUGO (acute kidney injury) (HCC) SIRS (systemic inflammatory response syndrome) (HCC) Hypoxia Postoperative anemia due to acute blood loss Ileus (HCC) Bilateral pleural effusion Peritoneal bleeding Vaginal bleeding Severe malnutrition (HCC) Volume depletion Hyperphosphatemia Small bowel obstruction (HCC) Resolved Problems: * No resolved hospital problems. * Small bowel obstruction (SBO) S/p laparotomy, SBO release 11/07. -NPO, TPN, NGT Management per Primary Team SIRS (leukocytosis, tachycardia, mildly elevated procalcitonin) -leukocytosis presumed to be reactive per heme/onc - improving -Blood and urine cultures no growth -course of pip-tazo completed. CT shows right posterior lung infiltrate, procalcitonin negative and no overt pneumonia symptoms. Peripheral smear reviewed. CXR does not show pleural effusions. Inadequate pleural fluid for thoracentesis on 11/01/19 Sinus tachycardia - resolved likely due to pain, anxiety, SIRS. Low probability V/Q scan and unremarkable echo IV metoprolol scheduled - continue for now, may decrease tomorrow if HR and BPs controlled monitor on telemetry Postoperative anemia due to acute blood loss Vaginal bleeding, improving Peritoneal bleed -s/p 2 Units pRBC 10/30/19 and tranexamic acid x2 -monitor H/H trend -hgb/hct stable. Accelerated HTN -PRN labetalol (not required) BP now controlled VICTOR HUGO (SCr improved, BUN elevated), Metabolic acidosis (resolved), hypernatremia (resolved), hyperphosphatemia (normalized) -baseline Cr 0.5-0.7 Na improved with IV fluids given 11/07 (D5 1/2NS) Nephrology consulted Tobacco abuse, suspect underlying obstructive lung disease -started on bronchodilators -no albuterol due to possible tachycardia -recommend f/u with PCP outpt PFT Malignancy (valvular mass and bladder cancer) oncology Dr. 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 Elevated platelets Likely reactive DVT Prophylaxis: SCDs and Lovenox Disposition: await test results, await clinical program consultant recommendations and await clinical improvement I spent over 51% of total time providing counseling or in coordination of care: 35 minutes regarding tachycardia discussed with patient and I personally reviewed chart, data, labs radiology reports 6AM-6PM please page: Electronically signed by German Gomez MD 3:13 PM 11/09/2019 6PM-6AM please page: [facility] [place] Internal Medicine / Hospitalist * Carol Mckeon MD - 11/09/2019 10:07 AM EDT NUTRITION/TPN NOTE: S/P laparoscopic release of SBO yesterday 11/08/19. BUN continues to rise but at slower rate, Cr and CrCl starting to improve. -continue current TPN volume of 2400 cc (discussed with nephrology), which adds 1127 cc free water -add small amount of potassium, decent amount of phos to TPN today -continue no sodium (except 12 mmoles of sodium phos), chloride or mag * Jorge Starr MD - 11/09/2019 8:50 AM EDT [facility] [address] [place] [address] Progress Note Subjective: Patient seen and examined today. We are following this patient for victor hugo. - feels better - passing flatus - only on ice chips - on TPN Scheduled Meds: metoclopramide 10 mg Intravenous Q6H ipratropium 0.5 mg Nebulization Daily bisacodyl 10 mg Rectal BID metoprolol 10 mg Intravenous Q8H lidocaine 1 % injection 5 mL Intradermal Once sodium chloride flush 10 mL Intravenous 2 times per day heparin flush 250 Units Intravenous 2 times per day enoxaparin 40 mg Subcutaneous Daily mometasone-formoterol 2 puff Inhalation BID Continuous Infusions: PN-Adult 2 IN 1 Central Line (Custom) 100 mL/hr at 11/08/19 1824 PRN Meds:oxyCODONE OR oxyCODONE, acetaminophen, iopamidol, diatrizoate meglumine-sodium, ipratropium, sodium chloride flush, heparin flush, LORazepam, metoprolol, sodium chloride flush, heparin flush, sodium chloride flush, hydrOXYzine, polyethylene glycol, ondansetron, labetalol, promethazine, melatonin, sodium chloride flush, morphine OR morphine Vitals: BP 117/70 Pulse 101 Temp 98.9 F (37.2 C) (Temporal) Resp 20 Ht 5' 4.5 (1.638 m) Wt 119 lb (54 kg) SpO2 94% BMI 20.11 kg/m BLOOD PRESSURE RANGE: Systolic (24hrs), Av , Min:100 , Max:156 ; Diastolic (24hrs), Av, Min:70, Max:90 24HR INTAKE/OUTPUT: Intake/Output Summary (Last 24 hours) at 11/09/2019 0850 Last data filed at 11/09/2019 0611 Gross per 24 hour Intake 2366 ml Output 1450 ml Net 916 ml Physical exam: Thin, alert and responsive, no acute distress s1s2 regular B/S equal and clear Light yellow urine No peripheral edema Data: Labs: Recent Labs 11/07/19 0044 11/08/19 0339 11/09/19 0148 WBC 26.5* 28.7* 24.0* HGB 9.3* 11.1* 10.4* HCT 29.7* 34.4* 33.3* MCV 97.7 96.8 97.4 PLT 596* 699* 691* Recent Labs 11/07/19 0044 11/08/19 0339 11/09/19 0148 NA 147* 147* 145 K 4.2 5.0 4.3 CL 115* 112* 111* CO2 22 23 23 GLUCOSE 117* 120* 131* PHOS 5.6* 6.8* 3.7 MG 2.5* 2.8* 2.5* BUN 51* 86* 94* CREATININE 0.65 1.23 1.01 Ionized Calcium: Lab Results Component Value Date IONCA 4.80 11/07/2019 Magnesium: Lab Results Component Value Date MG 2.5 11/09/2019 Phosphorus: Lab Results Component Value Date PHOS 3.7 11/09/2019 U/A: Lab Results Component Value Date COLORU Colorless 10/31/2019 WBCUA 11-25 10/31/2019 RBCUA 51-100 10/31/2019 BACTERIA Few 10/31/2019 LEUKOCYTESUR 250 10/31/2019 UROBILINOGEN Normal 10/31/2019 BILIRUBINUR Negative 10/31/2019 GLUCOSEU Normal 10/31/2019 Urine Culture: No components found for: CURINE Blood Culture: No components found for: CBLOOD, CFUNGUSBL Blood Culture from Central Line: No components found for: CBLOODLN Imaging: none Assessment / Plan: 64 y.o. female with hx bladder CA s/p robotic pelvic exenteration with ileal conduit on 10/28/19 alsos/p diagnostic laparoscopy with release of sbo on 11/07. Nephrology following for victor hugo 1. VICTOR HUGO - baseline Scr: 0.49mg/dL - acute insult secondary to pre-renal azotemia - Scr: peaked at 1.23mg/dL and improved to 1.01mg/dL today - currently on TPN - keep I>0, LR if needed. 2. Electrolytes: - mild hypernatremia - received some d5w yesterday, improved 3. Acid/base: - appears compensated 4. Calcium/phosphorous: - PO4 at goal - on TPN 5. Anemia: - hgb stable, leukocytosis, heme/onc following 6. Medications: - reviewed Thank you, please call [phone] with any concerns. Jorge Starr M.D 11/09/2019 8:50 AM * Matteo Layne MD - 11/09/2019 7:31 AM EDT UROLOGY PROGRESS NOTE PATIENT NAME: Linda Kim DATE OF : 1955 ADMISSION DATE: 10/28/2019 5:41 AM TODAY'S DATE: 11/09/2019 Subjective Taken to OR with General Surgery yesterday afternoon for diagnostic lap, release of SBO. Some RLQ pain this morning. Passed small amount of flatus. No BM. Wants coffee and juice, not hungry. Objective VS: BP 117/70 Pulse 101 Temp 98.9 F (37.2 C) (Temporal) Resp 20 Ht 5' 4.5 (1.638 m) Wt 119 lb (54 kg) SpO2 94% BMI 20.11 kg/m Vitals: 11/09/19 0553 BP: 117/70 Pulse: 101 Resp: 20 Temp: 98.9 F (37.2 C) SpO2: 94% I & O - 24hr: Intake/Output Summary (Last 24 hours) at 11/09/2019 0731 Last data filed at 11/09/2019 0611 Gross per 24 hour Intake 2366 ml Output 1650 ml Net 716 ml Physical Exam: General: HEENT: Resp: Abdomen: No acute distress NG tube with bilious drainage Normal effort Soft, appropriately TTP, mildly distended, incisions c/d/i : Ileal conduit with pink stoma, with mucus overlying, and B/L stents extruding draining yellow urine Skin: Skin color, texture, turgor normal, no rashes or lesions Labs and Imaging Studies Labs: CBC: Recent Labs 11/07/19 0044 11/08/19 0339 11/09/19 0148 WBC 26.5* 28.7* 24.0* HGB 9.3* 11.1* 10.4* HCT 29.7* 34.4* 33.3* MCV 97.7 96.8 97.4 PLT 596* 699* 691* BMP: Recent Labs 11/07/19 0044 11/08/19 0339 11/09/19 0148 NA 147* 147* 145 K 4.2 5.0 4.3 CL 115* 112* 111* CO2 22 23 23 PHOS 5.6* 6.8* 3.7 BUN 51* 86* 94* CREATININE 0.65 1.23 1.01 Magnesium: Lab Results Component Value Date MG 2.5 11/09/2019 Phosphate: Lab Results Component Value Date PHOS 3.7 11/09/2019 PT/INR: No results for input(s): PROTIME, INR in the last 72 hours. U/A: Lab Results Component Value Date LEUKOCYTESUR 250 10/31/2019 WBCUA 11-25 10/31/2019 RBCUA 51-100 10/31/2019 BACTERIA Few 10/31/2019 GLUCOSEU Normal 10/31/2019 Urine Culture: Component Value Date/Time LABURIN No growth (<1,000 CFU/ml). 10/31/20192026 Imaging Studies: CT A/P without contrast 10/29 IMPRESSION: Free intraperitoneal fluid appears denser than simple ascites and is suspicious for peritoneal blood CTR: I spoke with Raquel, the patient's nurse via telephone at 10:12 AM 10/30/2019. Abdominal wall air, free intraperitoneal air and pelvic extraperitoneal air consistent with the patient's recent surgery Ileal conduit with catheter and bilateral ureteral stents. There is no hydronephrosis. Small bilateral pleural effusions and bilateral dependent atelectasis KUB 10/29 IMPRESSION: 1. Most concerning for ileus. Continued follow-up recommended to exclude obstruction, however. Assessment and Plan ASSESMENT: 64 yo F with high grade MIBC, micropapillary variant; Stage IIIB pT2b pN2 M0, s/p neoadjuvant chemoand robotic anterior pelvic exenteration, B/L PLND with ileal conduit (10/28/2019). - Post-op anemia (resolved), Hgb stable - Post-op SBO, s/p diagnostic lap, release of SBO with General Surgery (11/07) - Leukocytosis (stable): h/o lymphoma; B/UCx no growth to date PLAN: - Daily KUB, F/u this AM - NGT to LIWS - Q12H suppositories - Continue TPN until able to tolerate PO - Monitor for bowel function - Diet per General Surgery, hopeful that patient will open up in the next day or two - Continue lovenox for DVT ppx - Encouraged ambulation - PT/OT recommending home with assist PRN vs. Home health - SCr at baseline - Persistent leukocytosis, heme/onc on board. Blood and urine cultures no growth; off abx. - Appreciate medicine recommendations Matteo Layne, PGY-3 11/09/2019 7:31 AM For questions/concerns please page liquefaction supervisor Urology resident * Merlin Harrison MD - 11/09/2019 6:59 AM EDT Department of Surgery - Progress Note - Surg 4 PATIENT NAME: Linda Kim : 1955 ATTENDING PHYSICIAN: Cam Finn MD ADMIT DATE: 10/28/2019 TODAY'S DATE: 11/09/2019 SUBJECTIVE NAEON Pain well controlled, states she feels better than yesterday NG in place with superintendent of generation output No fevers or chills Nauseated No BM, passed flatus x1 this AM OBJECTIVE VITALS: BP 117/70 Pulse 101 Temp 98.9 F (37.2 C) (Temporal) Resp 20 Ht 5' 4.5 (1.638 m) Wt 119 lb (54 kg) SpO2 94% BMI 20.11 kg/m INTAKE/OUTPUT: I/O last 3 completed shifts: In: 1545 [I.V.:600] Out: 1355 [Urine:400; Emesis/NG output:900; Drains:5; Blood:50] I/O this shift: In: 1766 [P.O.:100; I.V.:500] Out: 1400 [Urine:650; Emesis/NG output:750] CONSTITUTIONAL: NAD, A&O X3. HEAD: Normocephalic, atraumatic, NGT in place NECK: Supple, trachea midline LUNGS: Resp effort easy and unlabored, chest rise equal bilaterally ABDOMEN: soft, minimally distended, aTTP, incisions c/d/i. Ileal conduit appears healthy EXT: Moving all extremities, no edema SKIN: Warm and Dry, no rashes or lesions NEURO: CN 2-12 grossly intact, no focal neurologic deficits, sensation intact bilaterally Data Recent Labs 11/07/194 11/08/19338 WBC 26.5* 28.7* HGB 9.3* 11.1* HCT 29.7* 34.4* PLT 596* 699* Recent Labs 11/07/194 11/08/19 033 NA 147* 147* K 4.2 5.0 CL 115* 112* CO2 22 23 BUN 51* 86* CREATININE 0.65 1.23 GLUCOSE 117* 120* Recent Labs 11/07/194 11/08/19338 AST 38 61* ALT 28 55* BILITOT 3.0* 3.8* ALKPHOS 243* 305* Current Inpatient Medications Current Facility-Administered Medications: PN-Adult 2 IN 1 Central Line (Custom), , Intravenous, Continuous TPN metoclopramide (REGLAN) injection 10 mg, 10 mg, Intravenous, Q6H ipratropium (ATROVENT) 0.02 % nebulizer solution 0.5 mg, 0.5 mg, Nebulization, Daily acetaminophen (TYLENOL) tablet 650 mg, 650 mg, Per NG tube, Q6H PRN iopamidol (ISOVUE-370) 76 % injection 75 mL, 75 mL, Intravenous, ONCE PRN diatrizoate meglumine-sodium (GASTROGRAFIN) 66-10 % solution 30 mL, 30 mL, Per NG tube, ONCE PRN bisacodyl (DULCOLAX) suppository 10 mg, 10 mg, Rectal, BID ipratropium (ATROVENT) 0.02 % nebulizer solution 0.5 mg, 0.5 mg, Nebulization, Q6H PRN metoprolol (LOPRESSOR) injection 10 mg, 10 mg, Intravenous, Q8H lidocaine 1 % injection 5 mL, 5 mL, Intradermal, Once sodium chloride flush 0.9 % injection 10 mL, 10 mL, Intravenous, 2 times per day sodium chloride flush 0.9 % injection 10 mL, 10 mL, Intravenous, PRN heparin flush 100 UNIT/ML injection 250 Units, 250 Units, Intravenous, 2 times per day heparin flush 100 UNIT/ML injection 250 Units, 250 Units, Intravenous, PRN LORazepam (ATIVAN) injection 0.5 mg, 0.5 mg, Intravenous, Q12H PRN metoprolol (LOPRESSOR) injection 5 mg, 5 mg, Intravenous, Q6H PRN sodium chloride flush 0.9 % injection 10 mL, 10 mL, Intracatheter, PRN heparin flush 100 UNIT/ML injection 500 Units, 500 Units, Intracatheter, PRN sodium chloride flush 0.9 % injection 20 mL, 20 mL, Intracatheter, PRN enoxaparin (LOVENOX) injection 40 mg, 40 mg, Subcutaneous, Daily hydrOXYzine (VISTARIL) capsule 25 mg, 25 mg, Per NG tube, Q4H PRN polyethylene glycol (GLYCOLAX) packet 17 g, 17 g, Per NG tube, Daily PRN traMADol (ULTRAM) tablet 50 mg, 50 mg, Per NG tube, Q6H PRN OR traMADol (ULTRAM) tablet 100 mg,100 mg, Per NG tube, Q6H PRN ondansetron (ZOFRAN) injection 4 mg, 4 mg, Intravenous, Q6H PRN labetalol (NORMODYNE;TRANDATE) injection 20 mg, 20 mg, Intravenous, Q4H PRN promethazine (PHENERGAN) injection 6.25 mg, 6.25 mg, Intravenous, Q6H PRN MDI Treatment, , , BID AND mometasone-formoterol (DULERA) 100-5 MCG/ACT inhaler 2 puff, 2 puff,Inhalation, BID melatonin ER tablet 2 mg, 2 mg, Oral, Nightly PRN sodium chloride flush 0.9 % injection 10 mL, 10 mL, Intravenous, PRN morphine sulfate (PF) injection 2 mg, 2 mg, Intravenous, Q2H PRN OR morphine sulfate (PF) injection 4 mg, 4 mg, Intravenous, Q2H PRN ASSESSMENT AND PLAN Principal Problem: Malignant neoplasm of urinary bladder (HCC) Active Problems: Tachycardia Leukocytosis VICTOR HUGO (acute kidney injury) (HCC) SIRS (systemic inflammatory response syndrome) (HCC) Hypoxia Postoperative anemia due to acute blood loss Ileus (HCC) Bilateral pleural effusion Peritoneal bleeding Vaginal bleeding Severe malnutrition (HCC) Volume depletion Hyperphosphatemia Small bowel obstruction (HCC) Resolved Problems: * No resolved hospital problems. * 64 y.o. female with hx of bladder cancer s/p robotic pelvic exenteration, B/L PLND with ileal conduit 10/28/19 now s/p diagnostic laparoscopy with release SBO 11/07 -NPO, IVF -continue NGT for now (750cc out overnight) -OOB ambulate -monitor for bowel function -serial exams -anticipate patient to open up in next day or two -will follow #[id number] PGY-3 General surgery Associated attestation - Ruben Neil MD - 11/09/2019 9:29 AM EDT [facility] - [facility] Physicians Surgery Patient Name: Linda Kim Date: 11/09/19 Feels better, abdominal pressure resolving, small flatus overnight. 750 mL out from the NG tube however good urine output, creatinine improving. Pain control acceptable. BP 133/71 Pulse 91 Temp 98.4 F (36.9 C) (Temporal) Resp 16 Ht 5' 4.5 (1.638 m) Wt 119 lb(54 kg) SpO2 96% BMI 20.11 kg/m CBC: Recent Labs 11/07/194311/08/1933811/09/19 014 WBC 26.5* 28.7* 24.0* HGB 9.3* 11.1* 10.4* HCT 29.7* 34.4* 33.3* PLT 596* 699* 691* BMP: Recent Labs 11/07/19 0044 11/08/19 03311/09/19 014 NA 147* 147* 145 K 4.2 5.0 4.3 CL 115* 112* 111* CO2 22 23 23 BUN 51* 86* 94* CREATININE 0.65 1.23 1.01 GLUCOSE 117* 120* 131* Hepatic: Recent Labs 11/07/194311/08/19 03311/09/19 014 ALKPHOS 243* 305* 244* ALT 28 55* 38* AST 38 61* 47* PROT 6.8 7.7 7.0 BILITOT 3.0* 3.8* 2.8* BILIDIR 1.0* 1.0* 0.3 LABALBU 3.7 4.1 3.8 Abdomen: Soft, mildly tender, less distended. Plan: POD #1, laparoscopy with release of small bowel obstruction Await bowel function Increase activity Continue TPN for nutrition and IV fluid support Deep vein thrombosis prophylaxis I personally supervised my Resident/Surgical Fellow in the evaluation and management of Linda Kim in the development of a treatment plan for this patient. I personally interviewed the patient and performed an individual physical examination. In addition, I discussed the patient's condition and treatment options with them. I have also reviewed and agree with the past medical, family and social history and care plan unless otherwise noted. All of the patient's questions were answered. een and examined independently and relevant data reviewed by myself. A full chart review was performed. * Jose David Broderick OTA - 11/08/2019 3:21 PM EDT Occupational Therapy Facility/Department: [facility] Daily Treatment Note Pt. Schedule for sx. OT will re-attempt to see pt. As schedule permits. NAME: Linda Kim : 1955 Date of Service: 11/08/2019 [place] * German Gomez MD - 11/08/2019 1:25 PM EDT [facility] Progress Note Linda Kim : 1955(64 y.o.) Date: November 08, 2019 Subjective: CC: Tachycardia HPI: Patient in recliner. She is comfortable and in no distress. Currently no significant abdominal pain (she had abdominal pain yesterday). No chest pain. No shortness of breath. Minimal flatus. No bowel movement. Plan for exploratory laparotomy today. Scheduled Meds: ipratropium 0.5 mg Nebulization Daily bisacodyl 10 mg Rectal BID metoprolol 10 mg Intravenous Q8H lidocaine 1 % injection 5 mL Intradermal Once sodium chloride flush 10 mL Intravenous 2 times per day heparin flush 250 Units Intravenous 2 times per day enoxaparin 40 mg Subcutaneous Daily mometasone-formoterol 2 puff Inhalation BID Continuous Infusions: PN-Adult 2 IN 1 Central Line (Custom) dextrose 5 % and 0.45 % NaCl 100 mL/hr at 11/08/19 1141 PN-Adult 2 IN 1 Central Line (Custom) 85 mL/hr at 11/08/19 0542 PRN Meds:acetaminophen, iopamidol, diatrizoate meglumine-sodium, ipratropium, sodium chloride flush, heparin flush, LORazepam, metoprolol, sodium chloride flush, heparin flush, sodium chloride flush,hydrOXYzine, polyethylene glycol, traMADol OR traMADol, ondansetron, labetalol, promethazine, melatonin, sodium chloride flush, morphine OR morphine Review of Systems No chest pain. No shortness of breath. Interval Pertinent History: Social History Tobacco Use Smoking status: Current Every Day Smoker Packs/day: 0.50 Years: 25.00 Pack years: 12.50 Types: Cigarettes Smokeless tobacco: Never Used Substance Use Topics Alcohol use: Not Currently Objective: Patient Vitals for the past 24 hrs: BP Temp Temp src Pulse Resp SpO2 11/08/19 1300 115/77 98.2 F (36.8 C) Temporal 111 20 98 % 11/08/19 1056 122/85 97.4 F (36.3 C) Temporal 113 20 98 % 11/08/19 0805 16 97 % 11/08/19 0525 107/81 97.6 F (36.4 C) Temporal 113 20 96 % 11/08/19 0011 130/89 98.4 F (36.9 C) Temporal 99 18 94 % 11/07/19 2354 (!) 147/88 98.1 F (36.7 C) Temporal 122 16 94 % 11/07/192012 117/89 96 F (35.6 C) Temporal 123 18 96 % 11/07/19 1654 (!) 149/97 99 F (37.2 C) Temporal 118 16 95 % 11/07/19 1522 (!) 152/98 Temporal 107 Average, Min, and Max for last 24 hours Vitals: TEMPERATURE: Temp Av.8 F (36.6 C) Min: 96 F (35.6 C) Max: 99 F (37.2 C) RESPIRATIONS RANGE: Resp Av Min: 16 Max: 20 PULSE RANGE: Pulse Av.3 Min: 99 Max: 123 BLOOD PRESSURE RANGE: Systolic (24hrs), Av , Min:107 , Max:152 ; Diastolic (24hrs), Av, Min:77, Max:98 PULSE OXIMETRY RANGE: SpO2 Av % Min: 94 % Max: 98 % I/O last 3 completed shifts: In: 945 Out: 1805 [Urine:400; Emesis/NG output:1400; Drains:5] Physical Exam NAD, AAOx3, Normal affect Nasogastric tube in place Right chest medport. Lungs Diminished bibasilar breath sounds, no wheeze/rhonchi, Normal effort PERRL, Normal conjunctiva, Hearing intact No JVD, No thyroid tenderness, neck supple Regular rhythm, tachycardic (HR 100s), No murmurs. No edema. +2 pulses bilaterally Abdomen: +BS, soft, upper abdominal and mid-epigastric tenderness, mild distension, no HSP appreciated Cooper: yellow urine CN II-XII grossly intact, Normal sensation, NIH = 0. Skin warm, No rash Telemetry: sinus tachycardia, rate 100-120s Lab Results Component Value Date WBC 28.7 (H) 11/08/2019 HGB 11.1 (L) 11/08/2019 HCT 34.4 (L) 11/08/2019 MCV 96.8 11/08/2019 PLT 699 (H) 11/08/2019 Lab Results Component Value Date NA 147 11/08/2019 K 5.0 11/08/2019 CL 112 11/08/2019 CO2 23 11/08/2019 BUN 86 11/08/2019 CREATININE 1.23 11/08/2019 GLUCOSE 120 11/08/2019 CALCIUM 10.2 11/08/2019 No results found for: LABA1C Additional results of thelast 24 hours have been reviewed. Assessment and Plan: Principal Problem: Malignant neoplasm of urinary bladder (HCC) Active Problems: Tachycardia Leukocytosis VICTOR HUGO (acute kidney injury) (HCC) SIRS (systemic inflammatory response syndrome) (HCC) Hypoxia Postoperative anemia due to acute blood loss Ileus (HCC) Bilateral pleural effusion Peritoneal bleeding Vaginal bleeding Severe malnutrition (HCC) Resolved Problems: * No resolved hospital problems. * SIRS (leukocytosis, tachycardia, mildly elevated procalcitonin) -leukocytosis presumed to be reactive per heme/onc -Blood and urine cultures no growth -course of pip-tazo completed. CT shows right posterior lung infiltrate, procalcitonin negative and no overt pneumonia symptoms. Peripheral smear reviewed. CXR does not show pleural effusions. Inadequate pleural fluid for thoracentesis on 11/01/19 Sinus tachycardia likely due to pain, anxiety, SIRS. Low probability V/Q scan and unremarkable echo IV metoprolol scheduled monitor on telemetry EKG today shows sinus tachycardia. Ileus -in the setting of recent surgery with peritoneal bleed Plan for exploratory laparotomy today. Patient is at least a moderate risk for surgery. -NPO, NGT Postoperative anemia due to acute blood loss Vaginal bleeding, improving Peritoneal bleed -s/p 2 Units pRBC 10/30/19 and tranexamic acid x2 -monitor H/H trend -hgb/hct stable and improved today. 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 Trend and monitor closely Bilateral iliac artery stenosis May need further testing, will await surgery recommendations. Elevated platelets Likely reactive DVT Prophylaxis: SCDs and Lovenox Disposition: await test results, await clinical program consultant recommendations and await clinical improvement I spent over 51% of total time providing counseling or in coordination of care: 35 minutes regarding tachycardia discussed with patient and I personally reviewed chart, data, labs radiology reports I discussed with Dr. Mckeon and communicated with Dr. Queen (Urology) today. 6AM-6PM please page: Electronically signed by German Gomez MD 1:25 PM 11/08/2019 6PM-6AM please page: [facility] [place] Internal Medicine / Hospitalist * Irene Rich, SOUND TECHNICIAN SUPERVISOR - 11/08/2019 10:24 AM EDT Physical Therapy Facility/Department: [facility] TELEMETRY Daily Treatment Note NAME: Linda Kim : 1955 Date of Service: 11/08/2019 Discharge Recommendations: Home with assist PRN, Home with Home health PT PT Equipment Recommendations Other: tbd; possible rollator Assessment Body structures, Functions, Activity limitations: Decreased ADL status;Decreased safe awareness;Decreased strength;Decreased endurance;Decreased balance;Decreased functional mobility Assessment: pt limited by decreased functional strength/endurance and impaired dynamic balance d/t BLE weakness. pt was CGA for bed mobility w/ HOB elevated and use of rails. pt able to stand x2 trials w/ increased dizziness d/t elevated HR. pt should progress to Home w/ assist and Home PT upon Disch after medically stable. Treatment Diagnosis: weakness Specific instructions for Next Treatment: functional strength/endurance training. Prognosis: Fair Decision Making: Low Complexity REQUIRES PT FOLLOW UP: Yes Activity Tolerance Activity Tolerance: Patient limited by fatigue;Patient limited by endurance Activity Tolerance: pt mainly limited by HR in mid 140's during minimal activity today. Patient Diagnosis(es): There were no encounter diagnoses. has a past medical history of Cancer (HCC), Follicular lymphoma (HCC), and Hematuria. has a past surgical history that includes Ectopic surgery (04/1990); Bunionectomy; skin biopsy; bladder tumor excision (06/17/2019); Vulvectomy (06/17/2019); Tunneled venous port placement;and Tubal ligation. Restrictions Restrictions/Precautions Restrictions/Precautions: Fall Risk Required Braces or Orthoses?: No Position Activity Restriction Other position/activity restrictions: NGT, MARIA DEL CARMEN drain x 1 Subjective General Additional Pertinent Hx: bladder CA Response To Previous Treatment: Patient with no complaints from previous session. 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 Subjective Subjective: pt in bed, agreeable to PT. nsg cleared pt for PT. RN discontinued NG for PT session. pt noted to resting HR of 130 bpm pre Rx. General Comment Comments: Malignant neoplasm of urinary bladder, s/p robotic ant. pelvic exentration with ileal conduit ostomy, vaginal bleeding Pain Screening Patient Currently in Pain: No(pt had no c/o pain at rest pre Rx. ) Pain Assessment Clinical Progression: Not changed Vital Signs Patient Currently in Pain: No(pt had no c/o pain at rest pre Rx. ) Orientation Orientation Overall Orientation Status: Within Normal Limits Cognition Objective Bed mobility Rolling to Left: Stand by assistance Supine to Sit: Stand by assistance Sit to Supine: Unable to assess Scooting: Stand by assistance(to EOB) Comment: HOB elevated; use of bed rails noted for torso elevation. Transfers Sit to Stand: Contact guard assistance(x2 rep from EOB) Stand to sit: Contact guard assistance Comment: HR elevated to 147bpm w/ first stand trial; seated break d/t increased dizziness. RN notified about HR. Ambulation Ambulation?: Yes WB Status: no WB restrictions noted More Ambulation?: No Ambulation 1 Surface: level tile Device: Rolling Walker Assistance: Contact guard assistance Quality of Gait: flexed posture Gait Deviations: (IV pole; cooper; MARIA DEL CARMEN drain) Distance: 4ft to chair Comments: HR from 140-->144bpm w/ activity. Stairs/Curb Stairs?: No Exercises Gluteal Sets: x 10 Knee Long Arc Quad: x 10 seated ea LE Ankle Pumps: x20 rep BLE Comments: pt encouraged to perform LAQ, glute sets and AP every hour G-Code OutComes Score AM-PAC Score Goals Short term goals Time Frame for Short term goals: 2 weeks Short term goal 1: bed mobility modified independent- NOT MET Short term goal 2: transfers modified independent- PROGRESSING Short term goal 3: ambulate 150 ft with device, supervision- PROGRESSING Short term goal 4: negotiate 3 steps with rail, supervision- NOT MET Patient Goals Patient goals : To go home. Plan Plan Times per week: 5x/wk Specific instructions for Next Treatment: functional strength/endurance training. Current Treatment Recommendations: Strengthening, Transfer Training, Balance Training, Gait Training, Functional Mobility Training, Stair training Plan Comment: Cont PT POC Safety Devices Type of devices: All fall risk precautions in place, Call light within reach, Gait belt, Left in chair, Nurse notified, Chair alarm in place Restraints Initially in place: No Therapy Time Individual Concurrent Group Co-treatment Time In 909 Time Out 0928 Minutes 18 Timed Code Treatment Minutes: 18 Minutes(FA x1) Irene Rich PTA * Merlin Harrison MD - 11/08/2019 7:48 AM EDT Department of Surgery - Progress Note - Surg 4 PATIENT NAME: Linda Kim : 1955 ATTENDING PHYSICIAN: Cam Finn MD ADMIT DATE: 10/28/2019 TODAY'S DATE: 11/08/2019 SUBJECTIVE NAEON Pain well controlled NG in place - dark output No fevers or chills Nauseated No BM SBFT reviewed, little progression on delayed film OBJECTIVE VITALS: BP 107/81 Pulse 113 Temp 97.6 F (36.4 C) (Temporal) Resp 20 Ht 5' 4.5 (1.638 m) Wt 119 lb (54 kg) SpO2 96% BMI 20.11 kg/m INTAKE/OUTPUT: I/O last 3 completed shifts: In: 945 Out: 1805 [Urine:400; Emesis/NG output:1400; Drains:5] No intake/output data recorded. CONSTITUTIONAL: NAD, A&O X3. HEAD: Normocephalic, atraumatic, NGT in place NECK: Supple, trachea midline LUNGS: Resp effort easy and unlabored, chest rise equal bilaterally ABDOMEN: soft, minimally distended, incisions c/d/i. Ileal conduit appears healthy EXT: Moving all extremities, no edema SKIN: Warm and Dry, no rashes or lesions NEURO: CN 2-12 grossly intact, no focal neurologic deficits, sensation intact bilaterally Data Recent Labs 11/06/19 0518 11/07/19 0044 11/08/19 0339 WBC 26.2* 26.5* 28.7* HGB 9.5* 9.3* 11.1* HCT 29.5* 29.7* 34.4* PLT 592* 596* 699* Recent Labs 11/06/1951711/07/194 11/08/19 0339 NA 146* 147* 147* K 4.3 4.2 5.0 CL 115* 115* 112* CO2 22 22 23 BUN 47* 51* 86* CREATININE 0.49* 0.65 1.23 GLUCOSE 125* 117* 120* Recent Labs 11/06/1951711/07/194 11/08/19 0339 AST 32 38 61* ALT 22 28 55* BILITOT 1.8* 3.0* 3.8* ALKPHOS 224* 243* 305* Current Inpatient Medications Current Facility-Administered Medications: PN-Adult 2 IN 1 Central Line (Custom), , Intravenous, Continuous TPN ipratropium (ATROVENT) 0.02 % nebulizer solution 0.5 mg, 0.5 mg, Nebulization, Daily acetaminophen (TYLENOL) tablet 650 mg, 650 mg, Per NG tube, Q6H PRN iopamidol (ISOVUE-370) 76 % injection 75 mL, 75 mL, Intravenous, ONCE PRN diatrizoate meglumine-sodium (GASTROGRAFIN) 66-10 % solution 30 mL, 30 mL, Per NG tube, ONCE PRN bisacodyl (DULCOLAX) suppository 10 mg, 10 mg, Rectal, BID ipratropium (ATROVENT) 0.02 % nebulizer solution 0.5 mg, 0.5 mg, Nebulization, Q6H PRN metoprolol (LOPRESSOR) injection 10 mg, 10 mg, Intravenous, Q8H lidocaine 1 % injection 5 mL, 5 mL, Intradermal, Once sodium chloride flush 0.9 % injection 10 mL, 10 mL, Intravenous, 2 times per day sodium chloride flush 0.9 % injection 10 mL, 10 mL, Intravenous, PRN heparin flush 100 UNIT/ML injection 250 Units, 250 Units, Intravenous, 2 times per day heparin flush 100 UNIT/ML injection 250 Units, 250 Units, Intravenous, PRN LORazepam (ATIVAN) injection 0.5 mg, 0.5 mg, Intravenous, Q12H PRN metoprolol (LOPRESSOR) injection 5 mg, 5 mg, Intravenous, Q6H PRN sodium chloride flush 0.9 % injection 10 mL, 10 mL, Intracatheter, PRN heparin flush 100 UNIT/ML injection 500 Units, 500 Units, Intracatheter, PRN sodium chloride flush 0.9 % injection 20 mL, 20 mL, Intracatheter, PRN enoxaparin (LOVENOX) injection 40 mg, 40 mg, Subcutaneous, Daily hydrOXYzine (VISTARIL) capsule 25 mg, 25 mg, Per NG tube, Q4H PRN polyethylene glycol (GLYCOLAX) packet 17 g, 17 g, Per NG tube, Daily PRN traMADol (ULTRAM) tablet 50 mg, 50 mg, Per NG tube, Q6H PRN OR traMADol (ULTRAM) tablet 100 mg,100 mg, Per NG tube, Q6H PRN ondansetron (ZOFRAN) injection 4 mg, 4 mg, Intravenous, Q6H PRN labetalol (NORMODYNE;TRANDATE) injection 20 mg, 20 mg, Intravenous, Q4H PRN promethazine (PHENERGAN) injection 6.25 mg, 6.25 mg, Intravenous, Q6H PRN MDI Treatment, , , BID AND mometasone-formoterol (DULERA) 100-5 MCG/ACT inhaler 2 puff, 2 puff,Inhalation, BID melatonin ER tablet 2 mg, 2 mg, Oral, Nightly PRN sodium chloride flush 0.9 % injection 10 mL, 10 mL, Intravenous, PRN morphine sulfate (PF) injection 2 mg, 2 mg, Intravenous, Q2H PRN OR morphine sulfate (PF) injection 4 mg, 4 mg, Intravenous, Q2H PRN ASSESSMENT AND PLAN Principal Problem: Malignant neoplasm of urinary bladder (HCC) Active Problems: Tachycardia Leukocytosis VICTOR HUGO (acute kidney injury) (HCC) SIRS (systemic inflammatory response syndrome) (HCC) Hypoxia Postoperative anemia due to acute blood loss Ileus (HCC) Bilateral pleural effusion Peritoneal bleeding Vaginal bleeding Severe malnutrition (HCC) Resolved Problems: * No resolved hospital problems. * 64 y.o. female with hx of bladder cancer s/p robotic pelvic exenteration, B/L PLND with ileal conduit 10/28/19 with concern for SBO -NPO, IVF -1L bolus crystalloid this AM -continue NGT -daily KUB -continue TPN -OR this afternoon for diagnostic laparoscopy, possible exploratory laparotomy -risks and benefits explained, all questions answered, consent obtained, form signed and on chart #[id number] PGY-3 General surgery Associated attestation - Ruben Neil MD - 11/08/2019 10:22 AM EDT [facility] Physicians Surgery Patient Name: Linda Kim Date: 11/08/19 No acute overnight, leukocytosis persists. Creatinine elevated, we will bolus fluid. Plan laparoscopy today to evaluate bowel. Discussed with Dr. Finn. CBC: Recent Labs 11/06/19 0518 11/07/19 0044 11/08/19 0339 WBC 26.2* 26.5* 28.7* HGB 9.5* 9.3* 11.1* HCT 29.5* 29.7* 34.4* PLT 592* 596* 699* BMP: Recent Labs 11/06/19 0518 11/07/19 0044 11/08/19 0339 NA 146* 147* 147* K 4.3 4.2 5.0 CL 115* 115* 112* CO2 22 22 23 BUN 47* 51* 86* CREATININE 0.49* 0.65 1.23 GLUCOSE 125* 117* 120* Hepatic: Recent Labs 11/06/19 0518 11/07/19 0044 11/08/19 0339 ALKPHOS 224* 243* 305* ALT 22 28 55* AST 32 38 61* PROT 6.9 6.8 7.7 BILITOT 1.8* 3.0* 3.8* BILIDIR 0.1 1.0* 1.0* LABALBU 3.7 3.7 4.1 Abdomen: Soft, tender, distended. Plan: Plan laparoscopy I personally supervised my Resident/Surgical Fellow in the evaluation and management of Linda Kim in the development of a treatment plan for this patient. I personally interviewed the patient and performed an individual physical examination. In addition, I discussed the patient's condition and treatment options with them. I have also reviewed and agree with the past medical, family and social history and care plan unless otherwise noted. All of the patient's questions were answered. * Carol Mckeon MD - 11/08/2019 7:45 AM EDT Nutrition Progress Note Linda Kim : 1955(64 y.o.) Date: November 08, 2019 CC: TPN Interval events: Plan for OR today. BUN markedly elevated today, pt concerned, reviewed with her. Still very uncomfortable although a little better than yesterday. Denies dyspnea. Diet: Diet NPO Effective Now Exceptions are: Sips with Meds, Ice Chips PN-Adult 2 IN 1 Central Line (Custom) I/Os: Intake/Output Summary (Last 24 hours) at 11/08/2019 0745 Last data filed at 11/08/2019 0542 Gross per 24 hour Intake 945 ml Output 1805 ml Net -860 ml Weight: ABW: Admission weight: 119 lb (54 kg) Body mass index is 20.11 kg/m . Line: Med Port R Internal Jugular (NOT SUBCLAVIAN as in nursing documentation) SL Placed: 07/2019 [place] Objective: Vitals: 11/07/19 2013 11/07/19 2354 11/08/19 0011 11/08/19 0525 BP: 117/89 (!) 147/88 130/89 107/81 Pulse: 123 122 99 113 Resp: Temp: 96 F (35.6 C) 98.1 F (36.7 C) 98.4 F (36.9 C) 97.6 F (36.4 C) TempSrc: Temporal Temporal Temporal Temporal SpO2: 96% 94% 94% 96% Weight: Height: Physical Exam Vitals signs and nursing note reviewed. Constitutional: Comments: Thin WDWF sitting in chair, uncomfortable but NAD, NG in place HENT: Mouth/Throat: Comments: oral mucosa dry, no exudate Eyes: General: No scleral icterus. Extraocular Movements: Extraocular movements intact. Conjunctiva/sclera: Conjunctivae normal. Pupils: Pupils are equal, round, and reactive to light. Neck: Comments: trachea midline Cardiovascular: Rate and Rhythm: Normal rate and regular rhythm. Pulmonary: Effort: Pulmonary effort is normal. No respiratory distress. Breath sounds: No stridor. No wheezing. Comments: lungs with much improved air mvmt bases bilat Abdominal: Hernia: No hernia is present. Comments: distended, decreased BS, TTP, neg hsm Musculoskeletal: Right lower leg: No edema. Left lower leg: No edema. Comments: No gross joint deformities or effusions. Skin: General: Skin is warm. Capillary Refill: Capillary refill takes less than 2 seconds. Coloration: Skin is not jaundiced. Findings: No erythema. Renal Panel: Recent Labs 11/06/19 0518 11/07/19 0044 11/08/19 0339 NA 146* 147* 147* K 4.3 4.2 5.0 CL 115* 115* 112* CO2 22 22 23 PHOS 4.5 5.6* 6.8* BUN 47* 51* 86* CREATININE 0.49* 0.65 1.23 MG 2.4* 2.5* 2.8* Assessment: Malnutrition -patient meets ASPEN criteria for severe malnutrition-->severe loss of muscle mass, mod fat stores and less than 50% needed energy intake x 4 days with difficulty maintaining weight/intake prior to surgery, depending on supplements -small bowel follow through today, ?obstruction, plan for OR today Electrolyte abnormalities -uncertain why such an increase in potassium, phos, mag today-->BUN markedly increased, sodium remains high even without any in TPN -dc all mag, phos and potassium in TPN, already no sodium, will taper off TPN for surgery today -increase TV to 2400 cc Renal insufficiency -had improved, now with worsening BUN/Cr and Cr Cl down to 39 today, 11/07-->looks volume depleted to me -I/Os neg 11 liters, may be sl inaccurate due to taking ice chips but nurses have been trying to adjust output to account for that -did have contrast for CT 11/04 -discussed with Dr. Gomez Bladder cancer -hematuria (bernardino blood/clots) late 2018/early 2019 initially thought to be UTI, referred to urology as outpt, cystoscopy showed a 6cm sessile/friable tumor along anterior right lateral bladder wall-->s/p transurethral resection (Dr. Coffey) on 06/17/19 -pathology: invasive high grade bladder ca -neoadjuvant chemotherapy initiated 07/2019 in [place] (Dr. Prieto), completed 10/15/2019 -s/p robotic anterior pelvic exenteration, bilat pelvic lymph node dissection, SBR for ileal conduit creation on 10/28/19 Leukocytosis -heme onc consulted for WBC 57,900 on 10/29/19, thought to be reactive, down to 25,900 today Sinus tach, increased O2 demand -started on hep gtt for PE concern evening of 10/29/19-->VQ neg 10/29 and anticoagulation stopped-->much improved High grade vulvar dysplasia -left partial simple vulvectomy 06/17/19 (Dr. Salinas), and micheal anal bx c/w anal dysplasia PLAN SUMMARY, and as above: -taper current bag of TPN to off over 1 hr-->start D5/0.45NS at 100cc/hr -TPN to resume this evening, no potassium/phos/mag or sodium -discussed with Dr. Gomez, and surgery * Jeremy Queen MD - 11/08/2019 6:35 AM EDT UROLOGY PROGRESS NOTE PATIENT NAME: Linda Kim DATE OF : 1955 ADMISSION DATE: 10/28/2019 5:41 AM TODAY'S DATE: 11/08/2019 Subjective No acute events overnight Denies BM or flatus today Objective VS: BP 107/81 Pulse 113 Temp 97.6 F (36.4 C) (Temporal) Resp 20 Ht 5' 4.5 (1.638 m) Wt 119 lb (54 kg) SpO2 96% BMI 20.11 kg/m Vitals: 11/08/19 0525 BP: 107/81 Pulse: 113 Resp: 20 Temp: 97.6 F (36.4 C) SpO2: 96% I & O - 24hr: Intake/Output Summary (Last 24 hours) at 11/08/2019 0635 Last data filed at 11/08/2019 0542 Gross per 24 hour Intake 945 ml Output 1805 ml Net -860 ml Physical Exam: General: HEENT: Resp: Abdomen: No acute distress NG tube with bilious drainage Normal effort Soft, non-tender, mildly distended, MARIA DEL CARMEN with scant SS output : Ileal conduit with pink stoma, with mucus overlying, and B/L stents extruding draining yellow urine Skin: Skin color, texture, turgor normal, no rashes or lesions Labs and Imaging Studies Labs: CBC: Recent Labs 11/06/1918 11/07/19 0044 11/08/19 0339 WBC 26.2* 26.5* 28.7* HGB 9.5* 9.3* 11.1* HCT 29.5* 29.7* 34.4* MCV 96.5 97.7 96.8 PLT 592* 596* 699* BMP: Recent Labs 11/06/1951711/07/19 0044 11/08/19 0339 NA 146* 147* 147* K 4.3 4.2 5.0 CL 115* 115* 112* CO2 22 22 23 PHOS 4.5 5.6* 6.8* BUN 47* 51* 86* CREATININE 0.49* 0.65 1.23 Magnesium: Lab Results Component Value Date MG 2.8 11/08/2019 Phosphate: Lab Results Component Value Date PHOS 6.8 11/08/2019 PT/INR: No results for input(s): PROTIME, INR in the last 72 hours. U/A: Lab Results Component Value Date LEUKOCYTESUR 250 10/31/2019 WBCUA 11-25 10/31/2019 RBCUA 51-100 10/31/2019 BACTERIA Few 10/31/2019 GLUCOSEU Normal 10/31/2019 Urine Culture: Component Value Date/Time LABURIN No growth (<1,000 CFU/ml). 10/31/20192026 Imaging Studies: CT A/P without contrast 10/29 IMPRESSION: Free intraperitoneal fluid appears denser than simple ascites and is suspicious for peritoneal blood CTR: I spoke with Raquel, the patient's nurse via telephone at 10:12 AM 10/30/2019. Abdominal wall air, free intraperitoneal air and pelvic extraperitoneal air consistent with the patient's recent surgery Ileal conduit with catheter and bilateral ureteral stents. There is no hydronephrosis. Small bilateral pleural effusions and bilateral dependent atelectasis KUB 10/29 IMPRESSION: 1. Most concerning for ileus. Continued follow-up recommended to exclude obstruction, however. Assessment and Plan ASSESMENT: 64 yo F with high grade MIBC, micropapillary variant; Stage IIIB pT2b pN2 M0, s/p neoadjuvant chemoand robotic anterior pelvic exenteration, B/L PLND with ileal conduit (10/28/2019). - Post-op anemia (resolved), Hgb stable - Post-op ileus with concern for SBO- CT with PO contrast demonstrating decompressed large bowel with dilated SB loops - Leukocytosis (stable): h/o lymphoma; B/UCx no growth to date; on Zosyn per medicine PLAN: - Daily KUB, F/u this AM, denies any flatus this AM, likely plan for diagnostic laparoscopy with general surgery this afternoon - Entereg discontinued - NGT - Q12H suppositories - Continue TPN until able to tolerate PO - SBFT as of yet without any demonstration of contrast into large bowel - Continue lovenox for DVT ppx - Encouraged ambulation - PT/OT recommending home with assist PRN vs. Home health - Echo negative - SCr at baseline - Maintain MARIA DEL CARMEN. Maintain bilateral ureteral stents. - Persistent leukocytosis, heme/onc on board. Blood and urine cultures no growth off abx. - Appreciate medicine recommendations Jeremy Queen, PGY-4 11/08/2019 6:35 AM For questions/concerns please page liquefaction supervisor Urology resident * Carol Mckeon MD - 11/07/2019 5:34 PM EDT Nutrition Progress Note Linda Kim : 1955(64 y.o.) Date: November 07, 2019 CC: TPN Interval events: In a lot of discomfort currently, between xrays in small bowel study. They say they can't give me anything til this dye goes through...I can't take it, I just give up. Feels nauseated because NG clamped for the tests, no vomiting or dyspnea Diet: Diet NPO Effective Now Exceptions are: Sips with Meds, Ice Chips PN-Adult 2 IN 1 Central Line (Custom) PN-Adult 2 IN 1 Central Line (Custom) I/Os: Intake/Output Summary (Last 24 hours) at 11/07/2019 1734 Last data filed at 11/07/2019 0615 Gross per 24 hour Intake 1829 ml Output 1370 ml Net 459 ml Weight: ABW: Admission weight: 119 lb (54 kg) Body mass index is 20.11 kg/m . Line: Med Port R Internal Jugular (NOT SUBCLAVIAN as in nursing documentation) SL Placed: 07/2019 [place] Objective: Vitals: 11/07/19 0805 11/07/19 1214 11/07/19 1522 11/07/19 1654 BP: (!) 142/91 (!) 152/98 (!) 149/97 Pulse: 133 107 118 Resp: 16 16 Temp: 98.7 F (37.1 C) 99 F (37.2 C) TempSrc: Temporal Temporal Temporal SpO2: 97% 97% 95% Weight: Height: Physical Exam Vitals signs and nursing note reviewed. Constitutional: Comments: WDWF currently very uncomfortable which has her distressed, no resp distress Neck: Comments: trachea midline Cardiovascular: Rate and Rhythm: Regular rhythm. Pulmonary: Effort: Pulmonary effort is normal. No respiratory distress. Breath sounds: No wheezing. Comments: lungs with better air movement bases bilat Abdominal: Comments: rounded, uncomfortable with palpation, decreased BS Musculoskeletal: Right lower leg: No edema. Left lower leg: No edema. Renal Panel: Recent Labs 11/05/19 0150 11/06/19 0518 11/07/19 0044 NA 142 146* 147* K 4.0 4.3 4.2 CL 112* 115* 115* CO2 20* 22 22 PHOS 3.8 4.5 5.6* BUN 45* 47* 51* CREATININE 0.52 0.49* 0.65 MG 2.3 2.4* 2.5* Assessment: Malnutrition -patient meets ASPEN criteria for severe malnutrition-->severe loss of muscle mass, mod fat stores and less than 50% needed energy intake x 4 days with difficulty maintaining weight/intake prior to surgery, depending on supplements -small bowel follow through today, ?obstruction Electrolyte abnormalities -phos high, dc NaPhos 6 mmoles, decrease Kphos by 15 mmoles, add K acetate 10 meq -sodium and BUN still climbing, keep same free water today, no sodium in TPN-may need to increase free water if continues Renal insufficiency -improved, CrCl 98 today, tolerating protein at 1.8 gm/kg IBW Bladder cancer -hematuria (bernardino blood/clots) late 2018/early 2019 initially thought to be UTI, referred to urology as outpt, cystoscopy showed a 6cm sessile/friable tumor along anterior right lateral bladder wall-->s/p transurethral resection (Dr. Coffey) on 06/17/19 -pathology: invasive high grade bladder ca -neoadjuvant chemotherapy initiated 07/2019 in [place] (Dr. Prieto), completed 10/15/2019 -s/p robotic anterior pelvic exenteration, bilat pelvic lymph node dissection, SBR for ileal conduit creation on 10/28/19 Leukocytosis -heme onc consulted for WBC 57,900 on 10/29/19, thought to be reactive, down to 25,900 today Sinus tach, increased O2 demand -started on hep gtt for PE concern evening of 10/29/19-->VQ neg 10/29 and anticoagulation stopped-->much improved High grade vulvar dysplasia -left partial simple vulvectomy 06/17/19 (Dr. Salinas), and micheal anal bx c/w anal dysplasia PLAN SUMMARY, and as above: -TPN adjusted as above, continuous infusion - * German Gomez MD - 11/07/2019 4:17 PM EDT [facility] Progress Note Linda Kim : 1955(64 y.o.) Date: November 07, 2019 Subjective: CC: Tachycardia HPI: Patient laying in bed. She has abdominal discomfort at this time as she recently got back into bed after returning from a test. No chest pain. No shortness of breath. +Flatus. No bowel movement. Scheduled Meds: [START ON 11/08/2019] ipratropium 0.5 mg Nebulization Daily bisacodyl 10 mg Rectal BID metoprolol 10 mg Intravenous Q8H lidocaine 1 % injection 5 mL Intradermal Once sodium chloride flush 10 mL Intravenous 2 times per day heparin flush 250 Units Intravenous 2 times per day enoxaparin 40 mg Subcutaneous Daily mometasone-formoterol 2 puff Inhalation BID Continuous Infusions: PN-Adult 2 IN 1 Central Line (Custom) PN-Adult 2 IN 1 Central Line (Custom) 85 mL/hr at 11/06/19 1825 PRN Meds:acetaminophen, iopamidol, diatrizoate meglumine-sodium, ipratropium, sodium chloride flush, heparin flush, LORazepam, metoprolol, sodium chloride flush, heparin flush, sodium chloride flush,hydrOXYzine, polyethylene glycol, traMADol OR traMADol, ondansetron, labetalol, promethazine, melatonin, sodium chloride flush, morphine OR morphine Review of Systems No chest pain. No shortness of breath. Interval Pertinent History: Social History Tobacco Use Smoking status: Current Every Day Smoker Packs/day: 0.50 Years: 25.00 Pack years: 12.50 Types: Cigarettes Smokeless tobacco: Never Used Substance Use Topics Alcohol use: Not Currently Objective: Patient Vitals for the past 24 hrs: BP Temp Temp src Pulse Resp SpO2 11/07/19 1522 (!) 152/98 Temporal 107 11/07/19 1214 (!) 142/91 98.7 F (37.1 C) Temporal 133 16 97 % 11/07/19 0805 97 % 11/07/19 0443 139/88 97.4 F (36.3 C) Temporal 104 16 97 % 11/07/19 0127 137/84 97.1 F (36.2 C) Temporal 88 16 97 % 11/06/19 2111 (!) 150/92 98.2 F (36.8 C) Temporal 121 16 97 % 11/06/19 1645 131/77 98.7 F (37.1 C) Temporal 93 16 98 % 11/06/19 1619 98 % Average, Min, and Max for last 24 hours Vitals: TEMPERATURE: Temp Av F (36.7 C) Min: 97.1 F (36.2 C) Max: 98.7 F (37.1 C) RESPIRATIONS RANGE: Resp Av Min: 16 Max: 16 PULSE RANGE: Pulse Av.7 Min: 88 Max: 133 BLOOD PRESSURE RANGE: Systolic (24hrs), Av , Min:131 , Max:152 ; Diastolic (24hrs), Av, Min:77, Max:98 PULSE OXIMETRY RANGE: SpO2 Av.3 % Min: 97 % Max: 98 % I/O last 3 completed shifts: In: 1829 [P.O.:150; NG/GT:70] Out: 1370 [Urine:1250; Emesis/NG output:100; Drains:20] Physical Exam NAD, AAOx3, Normal affect Nasogastric tube in place Right chest medport, no surrounding edema/erythema. Lungs Diminished bibasilar breath sounds, no wheeze/rhonchi, Normal effort PERRL, Normal conjunctiva, Hearing intact No JVD, No thyroid tenderness, neck supple RRR, No murmurs. No edema. +2 pulses bilaterally Abdomen: +BS, soft, upper abdominal and mid-epigastric tenderness, mild distension, no HSP appreciated Cooper: yellow urine CN II-XII grossly intact, Normal sensation, NIH = 0. Skin warm, No rash Telemetry: 7 beats atrial tachycardia, rate has otherwise been controlled and sinus Lab Results Component Value Date WBC 26.5 (H) 11/07/2019 HGB 9.3 (L) 11/07/2019 HCT 29.7 (L) 11/07/2019 MCV 97.7 11/07/2019 PLT 596 (H) 11/07/2019 Lab Results Component Value Date NA 147 11/07/2019 K 4.2 11/07/2019 CL 115 11/07/2019 CO2 22 11/07/2019 BUN 51 11/07/2019 CREATININE 0.65 11/07/2019 GLUCOSE 117 11/07/2019 CALCIUM 9.5 11/07/2019 No results found for: LABA1C Additional results of thelast 24 hours have been reviewed. Assessment and Plan: Principal Problem: Malignant neoplasm of urinary bladder (HCC) Active Problems: Tachycardia Leukocytosis VICTOR HUGO (acute kidney injury) (HCC) SIRS (systemic inflammatory response syndrome) (HCC) Hypoxia Postoperative anemia due to acute blood loss Ileus (HCC) Bilateral pleural effusion Peritoneal bleeding Vaginal bleeding Severe malnutrition (HCC) Resolved Problems: * No resolved hospital problems. * # SIRS # Hypoxia (resolved), sinus tachycardia (improved), acute leukocytosis, mildly elevated procalcitonin (resolved) -in setting of acute blood loss anemia and bilateral pleural effusions -Low probability V/Q scan and unremarkable echo -leukocytosis presumed to be reactive per heme/onc -sinus tachycardia, unclear etiology, presumed to be 2/2 bilateral pleural effusions, anemia, pain,SIRS. (Tachycardia improved overall on IV beta blockade) -inadequate pleural fluid for thoracentesis on 11/01/19 -Blood and urine cultures no growth -monitor on telemetry -course of pip-tazo completed. -IV metoprolol scheduled -transition to PO 25 mg BID if tachycardia persist and pt tolerating PO -consider discharging on PO metoprolol and follow up with PCP if tachycardia persist CT shows right posterior lung infiltrate, procalcitonin negative and no overt pneumonia symptoms. CXR does not show pleural effusions Peripheral smear reviewed. # Ileus -in the setting of recent surgery with peritoneal bleed on CT -caution with use of IVF due to b/l pleural effusion -started on TPN -NPO, NGT -further management by primary team and surgery # Postoperative anemia due to acute blood loss # Vaginal bleeding, improving # Peritoneal bleed -s/p 2 U pRBC 10/30/19 and tranexamic acid x2 -monitor H/H trend -hgb/hct stable. 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 Trend and monitor closely Bilateral iliac artery stenosis May need further testing, will await surgery recommendations. Elevated platelets Likely reactive # DVT Prophylaxis: SCDs and Lovenox Disposition: await test results, await clinical program consultant recommendations and await clinical improvement I spent over 51% of total time providing counseling or in coordination of care: 35 minutes regarding tachycardia discussed with patient and I personally reviewed chart, data, labs radiology reports I discussed with RN today. 6AM-6PM please page: Electronically signed by German Gomez MD 4:17 PM 11/07/2019 6PM-6AM please page: [facility] [place] Internal Medicine / Hospitalist * Denny Guzman RCP - 11/07/2019 3:29 PM EDT Patient Evaluation Form The patient is currently receiving Atrovent BID & PRN Points 0 1 2 3 4 Points Totals Pulmonary Status (-/+) History Smoking history < 20 pack years Smoking history > 20 pack years Pulmonary Disorder (acute or chronic) Severe or Chronic with Exacerbation 1 Surgical Status No Surgery Trach PEG General Surgery Lower Abdominal Thoracic or Upper Abdominal Thoracic with Pulmonary Disorder 2 Chest X-ray Clear None Ordered Chronic Changes CXR results Pending Infiltrates, atelectasis, pleural effusion, or edema Infiltrates in more than one lobe Infiltrate + Atelectasis, &/or pleural effusion 0 Respiratory Pattern Regular, RR = 12-20 Increased, RR = 21-25 FELTON, irregular, or RR = 26-30 Decreased FEV1 or RR = 31-35 Severe SOB, used of of accessory muscles, or RR = > 35 0 Mental Status Alert, oriented, cooperative Confused, but follows commands Lethargic or un-able to follow commands Obtunded Comatose 0 Breath Sounds Clear to auscultation Decreased unilaterally or in bases only Decreased bilaterally Crackles or intermittent wheezes Wheezes 1 Cough Strong, spontaneous, & nonproductive Strong, spontaneous, & productive Weak, nonproductive Weak, productive or with wheezes No spontaneous cough or may require suctioning 0 Level of Activity Ambulatory Ambulatory with Assist Non-ambulatroy Paraplegic Quadriplegic 0 Triage 1 > 20 pts Triage 2 16-20 pts Triage 3 11- 15 pts Triage 4 6 - 10 pts Triage 5 0 - 5 pts TOTAL POINTS = 4 Triage Score = 5 PEF: FVC: FEV1: FVE1/FVC: Patient instructed and returned demonstration on use of MDI (with spacer, as appropriate) No Changing Therapy to Atrovent Daily : (Equate to home regimen of Spiriva;Tiotropium) * Irene Rich, ADAM - 11/07/2019 2:00 PM EDT Physical Therapy Pt politely declined PT at this time d/t abdominal pain. Will check back as schedule permits. * Estela Bernard, RD, LD - 11/07/2019 12:20 PM EDT Nutrition Assessment (Parenteral Nutrition) Type and Reason for Visit: Reassess Nutrition Recommendations: 1. Can increase TPN: 100g protein (400 kcals), 820 dextrose kcals, no lipids = 1220 kcals = 22 kcals/kg + 1.8g protein/kg IBW. 2. No lipid provided in TPN as all commercial lipids for TPN have egg phospholipid and pt does report an egg allergy. 3. Monitor nutritional status. Nutrition Assessment: Pt with PMH that includes (vulvular CA and bladder CA [facility]Oncologist [facility] Prieto in [facility]>, s/p partial vulvectomy May 2019; malignant neoplasm of urinary bladder s/p chemo completed September 2019. Pt is s/p robotic anterior pelvic exenteration with ileal conduit ostomy10/28/19. Pt with post-op anemia, vaginal bleed/peritoneal bleed, SIRS (Hypoxia, Tachycardia, Acute Leukocytosis, mildly elevated procal). KUB 10/31/19 continues to suggest ileus. Pt with NG to LIS- dark output. TPN continues. Pt reports that her egg allergy symptoms are itching (including in throat),hives. KUB 11/06/19: Continued gaseous distention of small bowel loops which could be related to distal small bowel obstruction. SBFT in progress - pt not in room during RD attempt to visit. Malnutrition Assessment: Malnutrition Status: Meets the criteria for severe malnutrition Context: Acute illness or injury Findings of the 6 clinical characteristics of malnutrition (Minimum of 2 out of 6 clinical characteristics is required to make the diagnosis of moderate or severe Protein Calorie Malnutrition based on AND/ASPEN Guidelines): 1. Energy Intake-Less than or equal to 50% of estimated energy requirement, Greater than or equal to 5 days 2. Weight Loss-Unable to assess, 3. Fat Loss-Moderate subcutaneous fat loss, Orbital 4. Muscle Loss-Severe muscle mass loss, Temples (temporalis muscle), Clavicles (pectoralis and deltoids), Calf (gastrocnemius) 5. Fluid Accumulation-No significant fluid accumulation, 6. Log Cutter Strength-Not measured Nutrition Risk Level: High Nutrient Needs: Estimated Daily Total Kcal: 0597-0962 (25-30) Estimated Daily Protein (g): 1.6-1.8g protein/kg IBW (55.4kgs) = 89-99g protein/day Estimated Daily Total Fluid (ml/day): per MD Nutrition Diagnosis: Problem: Severe malnutrition, In context of acute illness or injury Etiology: related to Catabolic illness, Alteration in GI function ? Signs and symptoms: as evidenced by NPO status due to medical condition, Diet history of poor intake, Severe muscle loss, Moderate loss of subcutaneous fat Objective Information: Nutrition-Focused Physical Findings: +BS, abd tender, abd surgical wound, no edema Wound Type: Surgical Wound Current Nutrition Therapies: Oral Diet Orders: NPO Parenteral Nutrition Orders: Type and Formula: 2-in-1 Custom Lipids: None Rate/Volume: 2040 mls, 85 mls/hour Duration: Continuous Current PN Order Provides: 100g protein (400 kcals), 600 dextrose kcals, no lipids = 1000 kcals/day= 18 kcals/kg + 1.8g protein/kg IBW. Goal PN Orders Provides: Can increase TPN: 100g protein (400 kcals), 820 dextrose kcals, no lipids = 1220 kcals = 22 kcals/kg + 1.8g protein/kg IBW. Anthropometric Measures: Ht: 5' 4.5 (163.8 cm) Current Body Wt: 119 lb (54 kg)(bed scale 11/04/19; pt's wt was 114# 07/11 ) Admission Body Wt: 119 lb (54 kg)(no method indicated) % Weight Change: , [facility] review: (10/21/19) 119#; (07/02/19) 113# [place] Body Wt: 122 lb (55.3 kg), % [place] Body BMI Classification: BMI 18.5 - 24.9 Normal Weight BMP: Recent Labs 11/05/19 0150 11/06/19 0518 11/07/19 0044 NA 142 146* 147* K 4.0 4.3 4.2 CL 112* 115* 115* CO2 20* 22 22 BUN 45* 47* 51* CREATININE 0.52 0.49* 0.65 GLUCOSE 128* 125* 117* CALCIUM 9.3 9.5 9.5 IONCA -- -- 4.80 MG 2.3 2.4* 2.5* PHOS 3.8 4.5 5.6* Phos - elevated decreased in TPN. BUN trending up slightly. Mg elevated - decreased in tonight's TPN. HEPATIC: Recent Labs 11/04/19 1626 11/06/19 0518 11/07/19 0044 AST 37 32 38 ALT 20 22 28 BILITOT 1.4* 1.8* 3.0* ALKPHOS 200* 224* 243* Nutrition Interventions: Continue NPO, Continue Parenteral Nutrition Continued Inpatient Monitoring Nutrition Evaluation: Evaluation: Goals set Goals: Pt receives estimated energy/protein requirements via TPN. Monitoring: PN Intake, PN Tolerance, Skin Integrity, Weight, Pertinent Labs, Monitor Bowel Function, Monitor Hemodynamic Status Contact Number: Pager #[phone] * Didier Coffey MD - 11/07/2019 9:14 AM EDT UROLOGY PROGRESS NOTE PATIENT NAME: Linda Kim DATE OF : 1955 ADMISSION DATE: 10/28/2019 5:41 AM TODAY'S DATE: 11/07/2019 Subjective Still passing small amounts of flatus No BM Ambulating yesterday NGT in place with dark outpuot Objective VS: BP 139/88 Pulse 104 Temp 97.4 F (36.3 C) (Temporal) Resp 16 Ht 5' 4.5 (1.638 m) Wt 119 lb (54 kg) SpO2 97% BMI 20.11 kg/m Vitals: 11/07/19 0805 BP: Pulse: Resp: Temp: SpO2: 97% I & O - 24hr: Intake/Output Summary (Last 24 hours) at 11/07/2019 0914 Last data filed at 11/07/2019 0615 Gross per 24 hour Intake 1829 ml Output 1970 ml Net -141 ml Physical Exam: General: HEENT: Resp: Abdomen: No acute distress NG tube with bilious drainage Normal effort Soft, non-tender, mildly distended, MARIA DEL CARMEN with scant SS output : Ileal conduit with pink stoma, some brown mucus overlying, and B/L stentser extruding draining yellow urine Skin: Skin color, texture, turgor normal, no rashes or lesions Labs and Imaging Studies Labs: CBC: Recent Labs 11/05/19 0150 11/06/19 0518 11/07/19 0044 WBC 26.0* 26.2* 26.5* HGB 9.1* 9.5* 9.3* HCT 28.3* 29.5* 29.7* MCV 97.2 96.5 97.7 PLT 504* 592* 596* BMP: Recent Labs 11/05/19 0150 11/06/19 0518 11/07/19 0044 NA 142 146* 147* K 4.0 4.3 4.2 CL 112* 115* 115* CO2 20* 22 22 PHOS 3.8 4.5 5.6* BUN 45* 47* 51* CREATININE 0.52 0.49* 0.65 Magnesium: Lab Results Component Value Date MG 2.5 11/07/2019 Phosphate: Lab Results Component Value Date PHOS 5.6 11/07/2019 PT/INR: No results for input(s): PROTIME, INR in the last 72 hours. U/A: Lab Results Component Value Date LEUKOCYTESUR 250 10/31/2019 WBCUA 11-25 10/31/2019 RBCUA 51-100 10/31/2019 BACTERIA Few 10/31/2019 GLUCOSEU Normal 10/31/2019 Urine Culture: Component Value Date/Time LABURIN No growth (<1,000 CFU/ml). 10/31/20192026 Imaging Studies: CT A/P without contrast 10/29 IMPRESSION: Free intraperitoneal fluid appears denser than simple ascites and is suspicious for peritoneal blood CTR: I spoke with Raquel, the patient's nurse via telephone at 10:12 AM 10/30/2019. Abdominal wall air, free intraperitoneal air and pelvic extraperitoneal air consistent with the patient's recent surgery Ileal conduit with catheter and bilateral ureteral stents. There is no hydronephrosis. Small bilateral pleural effusions and bilateral dependent atelectasis KUB 10/29 IMPRESSION: 1. Most concerning for ileus. Continued follow-up recommended to exclude obstruction, however. Assessment and Plan ASSESMENT: 64 yo F with high grade MIBC, micropapillary variant; Stage IIIB pT2b pN2 M0, s/p neoadjuvant chemoand robotic anterior pelvic exenteration, B/L PLND with ileal conduit (10/28/2019). - Post-op anemia (resolved), Hgb stable - Post-op ileus (improving): NGT in, decreased output; on TPN; passing flatus - Leukocytosis (stable): h/o lymphoma; B/UCx no growth to date; on Zosyn per medicine PLAN: - Daily KUB, F/u this AM, passing small amounts of flatus - Entereg discontinued - NGT - Q12H suppositories - Continue TPN until able to tolerate PO - SBFT today per surgery, appreciate recommendations - Continue lovenox for DVT ppx - Encouraged ambulation - PT/OT recommending home with assist PRN vs. Home health - Echo negative - SCr at baseline - Maintain MARIA DEL CARMEN. Maintain bilateral ureteral stents. - Persistent leukocytosis, heme/onc on board. Blood and urine cultures no growth off abx. - Appreciate medicine recommendations Jeremy Queen, PGY-4 11/07/2019 9:14 AM For questions/concerns please page liquefaction supervisor Urology resident The history and physical has been reviewed. The pertinent findings from the history of present illness, past medical history, family history, social history, review of systems have been noted and confirmed that are unchanged. Discussed with the urology resident. Agree with assessment and plan * Merlin Harrison MD - 11/07/2019 7:18 AM EDT Department of Surgery - Progress Note - Surg 4 PATIENT NAME: Linda Kim : 1955 ATTENDING PHYSICIAN: Cam Finn MD ADMIT DATE: 10/28/2019 TODAY'S DATE: 11/07/2019 SUBJECTIVE NAEON Pain well controlled NG in place - dark output No fevers or chills Nauseated No BM OBJECTIVE VITALS: BP 139/88 Pulse 104 Temp 97.4 F (36.3 C) (Temporal) Resp 16 Ht 5' 4.5 (1.638 m) Wt 119 lb (54 kg) SpO2 97% BMI 20.11 kg/m INTAKE/OUTPUT: I/O last 3 completed shifts: In: 1828 [P.O.:150; NG/GT:70] Out: 1969 [Urine:1850; Emesis/NG output:100; Drains:20] No intake/output data recorded. CONSTITUTIONAL: NAD, A&O X3. HEAD: Normocephalic, atraumatic, NGT in place NECK: Supple, trachea midline LUNGS: Resp effort easy and unlabored, chest rise equal bilaterally ABDOMEN: soft, minimally distended, incisions c/d/i. Ileal conduit appears healthy EXT: Moving all extremities, no edema SKIN: Warm and Dry, no rashes or lesions NEURO: CN 2-12 grossly intact, no focal neurologic deficits, sensation intact bilaterally Data Recent Labs 11/05/19 0150 11/06/19 0518 11/07/19 0044 WBC 26.0* 26.2* 26.5* HGB 9.1* 9.5* 9.3* HCT 28.3* 29.5* 29.7* PLT 504* 592* 596* Recent Labs 11/05/19 0150 11/06/19 0518 11/07/19 0044 NA 142 146* 147* K 4.0 4.3 4.2 CL 112* 115* 115* CO2 20* 22 22 BUN 45* 47* 51* CREATININE 0.52 0.49* 0.65 GLUCOSE 128* 125* 117* Recent Labs 11/04/19 1626 11/06/19 0518 11/07/19 0044 AST 37 32 38 ALT 20 22 28 BILITOT 1.4* 1.8* 3.0* ALKPHOS 200* 224* 243* Current Inpatient Medications Current Facility-Administered Medications: acetaminophen (TYLENOL) tablet 650 mg, 650 mg, Per NG tube, Q6H PRN ipratropium (ATROVENT) 0.02 % nebulizer solution 0.5 mg, 0.5 mg, Nebulization, BID PN-Adult 2 IN 1 Central Line (Custom), , Intravenous, Continuous TPN iopamidol (ISOVUE-370) 76 % injection 75 mL, 75 mL, Intravenous, ONCE PRN diatrizoate meglumine-sodium (GASTROGRAFIN) 66-10 % solution 30 mL, 30 mL, Per NG tube, ONCE PRN bisacodyl (DULCOLAX) suppository 10 mg, 10 mg, Rectal, BID ipratropium (ATROVENT) 0.02 % nebulizer solution 0.5 mg, 0.5 mg, Nebulization, Q6H PRN metoprolol (LOPRESSOR) injection 10 mg, 10 mg, Intravenous, Q8H lidocaine 1 % injection 5 mL, 5 mL, Intradermal, Once sodium chloride flush 0.9 % injection 10 mL, 10 mL, Intravenous, 2 times per day sodium chloride flush 0.9 % injection 10 mL, 10 mL, Intravenous, PRN heparin flush 100 UNIT/ML injection 250 Units, 250 Units, Intravenous, 2 times per day heparin flush 100 UNIT/ML injection 250 Units, 250 Units, Intravenous, PRN LORazepam (ATIVAN) injection 0.5 mg, 0.5 mg, Intravenous, Q12H PRN metoprolol (LOPRESSOR) injection 5 mg, 5 mg, Intravenous, Q6H PRN sodium chloride flush 0.9 % injection 10 mL, 10 mL, Intracatheter, PRN heparin flush 100 UNIT/ML injection 500 Units, 500 Units, Intracatheter, PRN sodium chloride flush 0.9 % injection 20 mL, 20 mL, Intracatheter, PRN enoxaparin (LOVENOX) injection 40 mg, 40 mg, Subcutaneous, Daily hydrOXYzine (VISTARIL) capsule 25 mg, 25 mg, Per NG tube, Q4H PRN polyethylene glycol (GLYCOLAX) packet 17 g, 17 g, Per NG tube, Daily PRN traMADol (ULTRAM) tablet 50 mg, 50 mg, Per NG tube, Q6H PRN OR traMADol (ULTRAM) tablet 100 mg,100 mg, Per NG tube, Q6H PRN ondansetron (ZOFRAN) injection 4 mg, 4 mg, Intravenous, Q6H PRN labetalol (NORMODYNE;TRANDATE) injection 20 mg, 20 mg, Intravenous, Q4H PRN promethazine (PHENERGAN) injection 6.25 mg, 6.25 mg, Intravenous, Q6H PRN MDI Treatment, , , BID AND mometasone-formoterol (DULERA) 100-5 MCG/ACT inhaler 2 puff, 2 puff,Inhalation, BID melatonin ER tablet 2 mg, 2 mg, Oral, Nightly PRN sodium chloride flush 0.9 % injection 10 mL, 10 mL, Intravenous, PRN morphine sulfate (PF) injection 2 mg, 2 mg, Intravenous, Q2H PRN OR morphine sulfate (PF) injection 4 mg, 4 mg, Intravenous, Q2H PRN ASSESSMENT AND PLAN Principal Problem: Malignant neoplasm of urinary bladder (HCC) Active Problems: Tachycardia Leukocytosis VICTOR HUGO (acute kidney injury) (HCC) SIRS (systemic inflammatory response syndrome) (HCC) Hypoxia Postoperative anemia due to acute blood loss Ileus (HCC) Bilateral pleural effusion Peritoneal bleeding Vaginal bleeding Severe malnutrition (HCC) Resolved Problems: * No resolved hospital problems. * 64 y.o. female with hx of bladder cancer s/p robotic pelvic exenteration, B/L PLND with ileal conduit 10/28/19 with concern for SBO -NPO, IVF -continue NGT -SBFT today with gastrografin, ok to clamp for SBFT -daily KUB -continue TPN -surgery will follow #[id number] PGY-3 General surgery Associated attestation - Ruben Neil MD - 11/07/2019 4:39 PM EDT [facility] - [facility] Surgery Patient Name: Linda Kim Date: 11/07/19 No acute overnight, minimal from the NG tube, small bowel follow-through reviewed, preliminary images still show retained contrast in the stomach, dilated proximal small bowel with proximal contrast at 2-1/2 hours. Delayed images pending. I had a long discussion with her today regarding her options including surgical intervention and laparoscopy. She is now postoperative day #10, computed tomography scan shows significantly decompressed bowel compared to the proximal bowel at the anastomosis. She has not made much progress, has been on TPN and bowel rest and I believe surgical intervention will be indicated if there is no contrast through the anastomosis on delayed images. BP (!) 152/98 Pulse 107 Temp 98.7 F (37.1 C) (Temporal) Resp 16 Ht 5' 4.5 (1.638 m) Wt 119 lb (54 kg) SpO2 97% BMI 20.11 kg/m CBC: Recent Labs 11/05/19 0150 11/06/19 0518 11/07/19 0044 WBC 26.0* 26.2* 26.5* HGB 9.1* 9.5* 9.3* HCT 28.3* 29.5* 29.7* PLT 504* 592* 596* BMP: Recent Labs 11/05/19 0150 11/06/19 0518 11/07/19 0044 NA 142 146* 147* K 4.0 4.3 4.2 CL 112* 115* 115* CO2 20* 22 22 BUN 45* 47* 51* CREATININE 0.52 0.49* 0.65 GLUCOSE 128* 125* 117* Hepatic: Recent Labs 11/06/19 0518 11/07/19 0044 ALKPHOS 224* 243* ALT 22 28 AST 32 38 PROT 6.9 6.8 BILITOT 1.8* 3.0* BILIDIR 0.1 1.0* LABALBU 3.7 3.7 Abdomen: Soft, moderately tender, distended. Plan: Ileus/obstruction Await further images and delayed images on small bowel follow-through Plan laparoscopy for 11/08/2019 if no improvement on images in a.m. I personally supervised my Resident/Surgical Fellow in the evaluation and management of Linda Kim in the development of a treatment plan for this patient. I personally interviewed the patient and performed an individual physical examination. In addition, I discussed the patient's condition and treatment options with them. I have also reviewed and agree with the past medical, family and social history and care plan unless otherwise noted. All of the patient's questions were answered. Greater than 51% of the 15 minute face to face encounter was spent discussing/counseling the patient regarding the care plan for this patient. The patient was seen and examined independently and relevant data reviewed by myself. A full chart review was performed. * German Gomez MD - 11/06/2019 1:27 PM EDT [facility] Progress Note Linda Kim : 1955(64 y.o.) Date: November 06, 2019 Subjective: CC: Tachycardia HPI: Patient reclined in chair, NG tube in place, no distress. Mild lower abdominal discomfort which she says is not bad. No chest pain. No shortness of breath. +Flatus. No bowel movement. Scheduled Meds: ipratropium 0.5 mg Nebulization BID bisacodyl 10 mg Rectal BID metoprolol 10 mg Intravenous Q8H lidocaine 1 % injection 5 mL Intradermal Once sodium chloride flush 10 mL Intravenous 2 times per day heparin flush 250 Units Intravenous 2 times per day enoxaparin 40 mg Subcutaneous Daily mometasone-formoterol 2 puff Inhalation BID Continuous Infusions: PN-Adult 2 IN 1 Central Line (Custom) PN-Adult 2 IN 1 Central Line (Custom) 62.5 mL/hr at 11/05/19 1819 PRN Meds:acetaminophen, iopamidol, diatrizoate meglumine-sodium, ipratropium, sodium chloride flush, heparin flush, LORazepam, metoprolol, sodium chloride flush, heparin flush, sodium chloride flush,hydrOXYzine, polyethylene glycol, traMADol OR traMADol, ondansetron, labetalol, promethazine, melatonin, sodium chloride flush, morphine OR morphine Review of Systems No chest pain. No shortness of breath. Interval Pertinent History: Social History Tobacco Use Smoking status: Current Every Day Smoker Packs/day: 0.50 Years: 25.00 Pack years: 12.50 Types: Cigarettes Smokeless tobacco: Never Used Substance Use Topics Alcohol use: Not Currently Objective: Patient Vitals for the past 24 hrs: BP Temp Temp src Pulse Resp SpO2 11/06/19 0906 (!) 132/93 98.2 F (36.8 C) Temporal 94 16 97 % 11/06/19 0537 134/85 98 F (36.7 C) Temporal 104 20 96 % 11/06/19 0145 132/75 97.9 F (36.6 C) Temporal 94 16 97 % 11/05/19 1659 132/75 98.5 F (36.9 C) Temporal 85 18 98 % 11/05/19 1421 123/72 98.1 F (36.7 C) Temporal 88 18 98 % Average, Min, and Max for last 24 hours Vitals: TEMPERATURE: Temp Av.1 F (36.7 C) Min: 97.9 F (36.6 C) Max: 98.5 F (36.9 C) RESPIRATIONS RANGE: Resp Av.6 Min: 16 Max: 20 PULSE RANGE: Pulse Av Min: 85 Max: 104 BLOOD PRESSURE RANGE: Systolic (24hrs), Av , Min:123 , Max:134 ; Diastolic (24hrs), Av, Min:72, Max:93 PULSE OXIMETRY RANGE: SpO2 Av.2 % Min: 96 % Max: 98 % I/O last 3 completed shifts: In: 7311 [P.O.:100; I.V.:1450; NG/GT:90] Out: 2600 [Urine:1930; Emesis/NG output:650; Drains:20] Physical Exam NAD, AAOx3, Normal affect Nasogastric tube in place Right chest medport, no surrounding edema/erythema. Lungs Diminished bibasilar breath sounds, no wheeze/rhonchi, Normal effort PERRL, Normal conjunctiva, Hearing intact No JVD, No thyroid tenderness, neck supple RRR, No murmurs. No edema. +2 pulses bilaterally Abdomen: +BS, soft, nontender, mild distension, no HSP appreciated Cooper: yellow urine CN II-XII grossly intact, Normal sensation, NIH = 0. Skin warm, No rash Telemetry: sinus 90-100s, currently sinus 100-110 Lab Results Component Value Date WBC 26.2 (H) 11/06/2019 HGB 9.5 (L) 11/06/2019 HCT 29.5 (L) 11/06/2019 MCV 96.5 11/06/2019 PLT 592 (H) 11/06/2019 Lab Results Component Value Date NA 146 11/06/2019 K 4.3 11/06/2019 CL 115 11/06/2019 CO2 22 11/06/2019 BUN 47 11/06/2019 CREATININE 0.49 11/06/2019 GLUCOSE 125 11/06/2019 CALCIUM 9.5 11/06/2019 No results found for: LABA1C Additional results of thelast 24 hours have been reviewed. Assessment and Plan: Principal Problem: Malignant neoplasm of urinary bladder (HCC) Active Problems: Tachycardia Leukocytosis VICTOR HUGO (acute kidney injury) (HCC) SIRS (systemic inflammatory response syndrome) (HCC) Hypoxia Postoperative anemia due to acute blood loss Ileus (HCC) Bilateral pleural effusion Peritoneal bleeding Vaginal bleeding Severe malnutrition (HCC) Resolved Problems: * No resolved hospital problems. * # SIRS # Hypoxia (resolved), sinus tachycardia (improved), acute leukocytosis, mildly elevated procalcitonin (resolved) # Bilateral pleural effusion -in setting of acute blood loss anemia and bilateral pleural effusions -Low probability V/Q scan and unremarkable echo -leukocytosis presumed to be reactive per heme/onc -sinus tachycardia, unclear etiology, presumed to be 2/2 bilateral pleural effusions, anemia, pain,SIRS. (Tachycardia improved overall, still 90-100s) -inadequate pleural fluid for thoracentesis on 11/01/19 -Blood and urine cultures no growth -monitor on telemetry -course of pip-tazo completed. -IV metoprolol scheduled -, transition to PO 25 mg BID if tachycardia persist and pt tolerating PO -consider discharging on PO metoprolol and follow up with PCP if tachycardia persist CT shows right posterior lung infiltrate, procalcitonin negative and no overt pneumonia symptoms. bandemia 6% --> 2% CXR does not show pleural effusions Peripheral smear reviewed. # Ileus -in the setting of recent surgery with peritoneal bleed on CT -caution with use of IVF due to b/l pleural effusion -started on TPN -NPO, NGT # Postoperative anemia due to acute blood loss # Vaginal bleeding, improving # Peritoneal bleed -s/p 2 U pRBC 10/30/19 and tranexamic acid x2 -monitor H/H trend -hgb/hct stable. 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 # DVT Prophylaxis: SCDs and Lovenox Disposition: await test results, await clinical program consultant recommendations and await clinical improvement I spent over 51% of total time providing counseling or in coordination of care: 35 minutes regarding tachycardia discussed with patient and I personally reviewed chart, data, labs radiology reports 6AM-6PM please page: Electronically signed by German Gomez MD 1:27 PM 11/06/2019 6PM-6AM please page: [facility] [place] Internal Medicine / Hospitalist * Brinda Milian FOLDER OPERATOR - 11/06/2019 8:55 AM EDT Patient Evaluation Form The patient is currently receiving Atrovent TID Points 0 1 2 3 4 Points Totals Pulmonary Status (-/+) History Smoking history < 20 pack years Smoking history > 20 pack years Pulmonary Disorder (acute or chronic) Severe or Chronic with Exacerbation 3 Surgical Status No Surgery Trach PEG General Surgery Lower Abdominal Thoracic or Upper Abdominal Thoracic with Pulmonary Disorder 2 Chest X-ray Clear None Ordered Chronic Changes CXR results Pending Infiltrates, atelectasis, pleural effusion, or edema Infiltrates in more than one lobe Infiltrate + Atelectasis, &/or pleural effusion 0 Respiratory Pattern Regular, RR = 12-20 Increased, RR = 21-25 FELTON, irregular, or RR = 26-30 Decreased FEV1 or RR = 31-35 Severe SOB, used of of accessory muscles, or RR = > 35 0 Mental Status Alert, oriented, cooperative Confused, but follows commands Lethargic or un-able to follow commands Obtunded Comatose 0 Breath Sounds Clear to auscultation Decreased unilaterally or in bases only Decreased bilaterally Crackles or intermittent wheezes Wheezes 1 Cough Strong, spontaneous, & nonproductive Strong, spontaneous, & productive Weak, nonproductive Weak, productive or with wheezes No spontaneous cough or may require suctioning 0 Level of Activity Ambulatory Ambulatory with Assist Non-ambulatroy Paraplegic Quadriplegic 1 Triage 1 > 20 pts Triage 2 16-20 pts Triage 3 11- 15 pts Triage 4 6 - 10 pts Triage 5 0 - 5 pts TOTAL POINTS = 7 Triage Score = 4 Changing Therapy to Atrovent BID spo2 97% R/A * Jeremy Queen MD - 11/06/2019 7:13 AM EDT UROLOGY PROGRESS NOTE PATIENT NAME: Linda Kim DATE OF : 1955 ADMISSION DATE: 10/28/2019 5:41 AM TODAY'S DATE: 11/06/2019 Subjective Passed small amount of flatus Ambulated yesterday NGT with 650cc output No BM Abdominal distention stable Objective VS: BP 134/85 Pulse 104 Temp 98 F (36.7 C) (Temporal) Resp 20 Ht 5' 4.5 (1.638 m) Wt 119lb (54 kg) SpO2 96% BMI 20.11 kg/m Vitals: 11/06/19 0537 BP: 134/85 Pulse: 104 Resp: 20 Temp: 98 F (36.7 C) SpO2: 96% I & O - 24hr: Intake/Output Summary (Last 24 hours) at 11/06/2019 0713 Last data filed at 11/06/2019 0630 Gross per 24 hour Intake 7311 ml Output 2600 ml Net 4711 ml Physical Exam: General: HEENT: Resp: Abdomen: No acute distress NG tube with bilious drainage Normal effort Soft, non-tender, mildly distended, MARIA DEL CARMEN with scant SS output : Ileal conduit with pink stoma, some brown mucus overlying, and B/L stentser extruding draining yellow urine Skin: Skin color, texture, turgor normal, no rashes or lesions Labs and Imaging Studies Labs: CBC: Recent Labs 11/04/1925711/05/19 0150 11/06/19517 WBC 25.9* 26.0* 26.2* HGB 9.5* 9.1* 9.5* HCT 28.7* 28.3* 29.5* MCV 96.8 97.2 96.5 PLT 429 504* 592* BMP: Recent Labs 11/04/1925711/05/19 0150 11/06/19517 NA 138 142 146* K 3.5 4.0 4.3 CL 107 112* 115* CO2 23 20* 22 PHOS 3.7 3.8 4.5 BUN 40* 45* 47* CREATININE 0.53 0.52 0.49* Magnesium: Lab Results Component Value Date MG 2.4 11/06/2019 Phosphate: Lab Results Component Value Date PHOS 4.5 11/06/2019 PT/INR: No results for input(s): PROTIME, INR in the last 72 hours. U/A: Lab Results Component Value Date LEUKOCYTESUR 250 10/31/2019 WBCUA 11-25 10/31/2019 RBCUA 51-100 10/31/2019 BACTERIA Few 10/31/2019 GLUCOSEU Normal 10/31/2019 Urine Culture: Component Value Date/Time LABURIN No growth (<1,000 CFU/ml). 10/31/20192026 Imaging Studies: CT A/P without contrast 10/29 IMPRESSION: Free intraperitoneal fluid appears denser than simple ascites and is suspicious for peritoneal blood CTR: I spoke with Raquel, the patient's nurse via telephone at 10:12 AM 10/30/2019. Abdominal wall air, free intraperitoneal air and pelvic extraperitoneal air consistent with the patient's recent surgery Ileal conduit with catheter and bilateral ureteral stents. There is no hydronephrosis. Small bilateral pleural effusions and bilateral dependent atelectasis KUB 10/29 IMPRESSION: 1. Most concerning for ileus. Continued follow-up recommended to exclude obstruction, however. Assessment and Plan ASSESMENT: 64 yo F with high grade MIBC, micropapillary variant; Stage IIIB pT2b pN2 M0, s/p neoadjuvant chemoand robotic anterior pelvic exenteration, B/L PLND with ileal conduit (10/28/2019). - Post-op anemia (resolved), Hgb stable - Post-op ileus (improving): NGT in, decreased output; on TPN; passing flatus - Leukocytosis (stable): h/o lymphoma; B/UCx no growth to date; on Zosyn per medicine PLAN: - Daily KUB, F/u this AM, passing small amounts of flatus - Entereg discontinued - Continue to monitor output from NGT. Will proceed with clamp trial once output decreases - Q12H suppositories - Continue TPN until able to tolerate PO - Continue lovenox for DVT ppx - Encouraged ambulation - PT/OT recommending home with assist PRN vs. Home health - Echo negative - SCr at baseline - Maintain MARIA DEL CARMEN. Maintain bilateral ureteral stents. - Persistent leukocytosis, heme/onc on board. Blood and urine cultures no growth. Currently on Zosyn, would consider trial off Abx. - Appreciate medicine recommendations Jeremy Queen, PGY-4 11/06/2019 7:13 AM For questions/concerns please page liquefaction supervisor Urology resident * Carol Mckeon MD - 11/06/2019 7:13 AM EDT Nutrition Progress Note Linda Kim : 1955(64 y.o.) Date: November 06, 2019 CC: TPN Interval events: Had CT yesterday, a bunch more xrays today. Small amount of gas, no BM. Currently not in pain, NGbothers her Diet: Diet NPO Effective Now Exceptions are: Sips with Meds, Ice Chips PN-Adult 2 IN 1 Central Line (Custom) I/Os: Intake/Output Summary (Last 24 hours) at 11/06/2019 0713 Last data filed at 11/06/2019 0630 Gross per 24 hour Intake 7311 ml Output 2600 ml Net 4711 ml Weight: ABW: Admission weight: 119 lb (54 kg) Body mass index is 20.11 kg/m . Line: Med Port R Internal Jugular (NOT SUBCLAVIAN as in nursing documentation) SL Placed: 07/2019 [place] Objective: Vitals: 11/05/19 1421 11/05/19 1659 11/06/19 0145 11/06/19 0537 BP: 123/72 132/75 132/75 134/85 Pulse: 88 85 94 104 Resp: Temp: 98.1 F (36.7 C) 98.5 F (36.9 C) 97.9 F (36.6 C) 98 F (36.7 C) TempSrc: Temporal Temporal Temporal Temporal SpO2: 98% 98% 97% 96% Weight: Height: Physical Exam Vitals signs and nursing note reviewed. Constitutional: Comments: WD WF awake/alert, sitting in a chair, frustrated with situation but NAD Neck: Comments: trachea midline Cardiovascular: Rate and Rhythm: Normal rate and regular rhythm. Pulmonary: Effort: No respiratory distress. Breath sounds: No stridor. No wheezing. Comments: lungs with better air movement bases bilat Abdominal: Comments: still sl distended, decreased BS, currently not TTP Musculoskeletal: Right lower leg: No edema. Left lower leg: No edema. Renal Panel: Recent Labs 11/04/19 0258 11/05/19 0150 11/06/19 0518 NA 138 142 146* K 3.5 4.0 4.3 CL 107 112* 115* CO2 23 20* 22 PHOS 3.7 3.8 4.5 BUN 40* 45* 47* CREATININE 0.53 0.52 0.49* MG 2.4* 2.3 2.4* Assessment: Malnutrition -patient meets ASPEN criteria for severe malnutrition-->severe loss of muscle mass, mod fat stores and less than 50% needed energy intake x 4 days with difficulty maintaining weight/intake prior to surgery, depending on supplements -CT abd yesterday, KUB today still with pattern concerning for SBO Electrolyte abnormalities -potassium continues to increase, decrease sl -phos high normal -sodium, chloride and BUN continue to rise, she looks dry, will add a small amount free water to TPN Renal insufficiency -improved, CrCl 98 today, tolerating protein at 1.8 gm/kg IBW Bladder cancer -hematuria (bernardino blood/clots) late 2018/early 2019 initially thought to be UTI, referred to urology as outpt, cystoscopy showed a 6cm sessile/friable tumor along anterior right lateral bladder wall-->s/p transurethral resection (Dr. Coffey) on 06/17/19 -pathology: invasive high grade bladder ca -neoadjuvant chemotherapy initiated 07/2019 in [place] (Dr. Prieto), completed 10/15/2019 -s/p robotic anterior pelvic exenteration, bilat pelvic lymph node dissection, SBR for ileal conduit creation on 10/28/19 Leukocytosis -heme onc consulted for WBC 57,900 on 10/29/19, thought to be reactive, down to 25,900 today Sinus tach, increased O2 demand -started on hep gtt for PE concern evening of 10/29/19-->VQ neg 10/29 and anticoagulation stopped-->much improved High grade vulvar dysplasia -left partial simple vulvectomy 06/17/19 (Dr. Salinas), and micheal anal bx c/w anal dysplasia PLAN SUMMARY, and as above: -electrolyte adjustments as above, caution with any more diuresis at this time * German Gomez MD - 11/05/2019 3:54 PM EDT [facility] Progress Note Linda Kim : 1955(64 y.o.) Date: November 05, 2019 Subjective: CC: Tachycardia HPI: Patient seated in chair, NG tube in place, no distress. She hopes to have the NG tube out soon. She would like to eat. +Flatus. No abdominal pain currently. No chest pain. No shortness of breath. RN at bedside for a portion of the encounter. Scheduled Meds: bisacodyl 10 mg Rectal BID ipratropium 0.5 mg Nebulization TID metoprolol 10 mg Intravenous Q8H lidocaine 1 % injection 5 mL Intradermal Once sodium chloride flush 10 mL Intravenous 2 times per day heparin flush 250 Units Intravenous 2 times per day enoxaparin 40 mg Subcutaneous Daily acetaminophen 1,000 mg Per NG tube Q6H mometasone-formoterol 2 puff Inhalation BID Continuous Infusions: PN-Adult 2 IN 1 Central Line (Custom) PN-Adult 2 IN 1 Central Line (Custom) 62.5 mL/hr at 11/04/19 1812 PRN Meds:iopamidol, diatrizoate meglumine-sodium, ipratropium, sodium chloride flush, heparin flush, LORazepam, metoprolol, sodium chloride flush, heparin flush, sodium chloride flush, hydrOXYzine, polyethylene glycol, traMADol OR traMADol, ondansetron, labetalol, promethazine, melatonin, sodium chloride flush, morphine OR morphine Review of Systems No chest pain. No shortness of breath. Interval Pertinent History: Social History Tobacco Use Smoking status: Current Every Day Smoker Packs/day: 0.50 Years: 25.00 Pack years: 12.50 Types: Cigarettes Smokeless tobacco: Never Used Substance Use Topics Alcohol use: Not Currently Objective: Patient Vitals for the past 24 hrs: BP Temp Temp src Pulse Resp SpO2 11/05/19 1421 123/72 98.1 F (36.7 C) Temporal 88 18 98 % 11/05/19 1305 16 100 % 11/05/19 0959 125/75 98.5 F (36.9 C) Temporal 98 18 97 % 11/05/19 0825 16 97 % 11/05/19 0618 132/77 98.9 F (37.2 C) Temporal 108 18 97 % 11/05/19 0048 115/65 98.3 F (36.8 C) Temporal 111 18 96 % 11/04/19 2055 129/68 97.4 F (36.3 C) Temporal 113 18 97 % 11/04/19 2031 18 97 % 11/04/19 1730 130/88 98 11/04/19 1643 18 95 % 11/04/19 1624 (!) 133/99 98.9 F (37.2 C) Temporal 124 20 95 % Average, Min, and Max for last 24 hours Vitals: TEMPERATURE: Temp Av.4 F (36.9 C) Min: 97.4 F (36.3 C) Max: 98.9 F (37.2 C) RESPIRATIONS RANGE: Resp Av.8 Min: 16 Max: 20 PULSE RANGE: Pulse Av.7 Min: 88 Max: 124 BLOOD PRESSURE RANGE: Systolic (24hrs), Av , Min:115 , Max:133 ; Diastolic (24hrs), Av, Min:65, Max:99 PULSE OXIMETRY RANGE: SpO2 Av.9 % Min: 95 % Max: 100 % I/O last 3 completed shifts: In: 0 Out: 1185 [Urine:650; Emesis/NG output:450; Drains:85] Physical Exam NAD, AAOx3, Normal affect Nasogastric tube in place Right chest medport, no surrounding edema/erythema. Lungs Diminished bibasilar breath sounds, no wheeze/rhonchi, Normal effort PERRL, Normal conjunctiva, Hearing intact No JVD, No thyroid tenderness, neck supple RRR, No murmurs. No edema. +2 pulses bilaterally Abdomen: +BS, soft, nontender to light palpation, mild distension, no HSP appreciated CN II-XII grossly intact, Normal sensation, NIH = 0. Skin warm, No rash Telemetry: sinus 90-100s Lab Results Component Value Date WBC 26.0 (H) 11/05/2019 HGB 9.1 (L) 11/05/2019 HCT 28.3 (L) 11/05/2019 MCV 97.2 11/05/2019 PLT 504 (H) 11/05/2019 Lab Results Component Value Date NA 142 11/05/2019 K 4.0 11/05/2019 CL 112 11/05/2019 CO2 20 11/05/2019 BUN 45 11/05/2019 CREATININE 0.52 11/05/2019 GLUCOSE 128 11/05/2019 CALCIUM 9.3 11/05/2019 No results found for: LABA1C Additional results of thelast 24 hours have been reviewed. Assessment and Plan: Principal Problem: Malignant neoplasm of urinary bladder (HCC) Active Problems: Tachycardia Leukocytosis VICTOR HUGO (acute kidney injury) (HCC) SIRS (systemic inflammatory response syndrome) (HCC) Hypoxia Postoperative anemia due to acute blood loss Ileus (HCC) Bilateral pleural effusion Peritoneal bleeding Vaginal bleeding Severe malnutrition (HCC) Resolved Problems: * No resolved hospital problems. * # SIRS # Hypoxia, sinus tachycardia, acute leukocytosis, mildly elevated procalcitonin (improving) # Bilateral pleural effusion -in the setting of acute blood loss anemia and bilateral pleural effusion, negative V/Q scan and unremarkable echo -leukocytosis presumed to be reactive per heme/onc -tachycardia of unknown chronicity, presumed to be 2/2 bilateral pleural effusion and anemia -inadequate pleural fluid for thoracentesis on 11/01/19 -Cultures No growth To Date -monitor on telemetry, IS, bronchodilators (albuterol can contribute to tachycardia), wean off O2 (now stable on room air) -now off antibiotics. -IV metoprolol scheduled, transition to PO 25 mg BID if tachycardia persist and pt tolerating PO -consider discharging on PO metoprolol and follow up with PCP if tachycardia persist despite improvement of pleural effusion, anemia CT shows right posterior lung infiltrate, will check procalcitonin. No overt pneumonia symptoms. bandemia 6% CXR does not show pleural effusions Peripheral smear reviewed. # Ileus, improving -in the setting of recent surgery with peritoneal bleed on CT -judicious use of IVF due to b/l pleural effusion and hypoxia, -replete lytes PRN -started on TPN on the this admission -NPO, NGT # Postoperative anemia due to acute blood loss # Vaginal bleeding, improving # Peritoneal bleed -s/p 2 U pRBC 10/30/19 and tranexamic acid x2 -monitor H/H trend # Accelerated HTN, improving -no documented hx of HTN -PRN labetalol, sBP>160, -will consider PO antihypertensive If HTN persist despite resolution of ileus and appropriate pain control # VICTOR HUGO, resolved, Metabolic acidosis -baseline Cr 0.5-0.7 -s/p IVF, caution with nephrotoxic meds # Hyperkalemia, resolved -monitor # Tobacco abuse suspect underlying obstructive lung disease -started on bronchodilators -home spiriva and albuterol inhalers (albuterol can contribute to tachycardia) -recommend f/u with PCP outpt PFT # Malignancy (valvular mass and bladder cancer) oncology Dr Prieto at [facility] # 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 # Malignant neoplasm of urinary bladder -s/p chemo completed September 2019 -s/p Robotic anterior pelvic exenteration, B/L Pelvic Lymph Node Dissection with ileal conduit 10/28/2019 -managed by primary Elevated alk phos Trend # DVT Prophylaxis: SCDs and Lovenox Disposition: await test results, await clinical program consultant recommendations and await clinical improvement I spent over 51% of total time providing counseling or in coordination of care: 35 minutes regarding tachycardia discussed with patient and I personally reviewed chart, data, labs radiology reports 6AM-6PM please page: Electronically signed by German Gomez MD 3:54 PM 11/05/2019 6PM-6AM please page: [facility] [place] Internal Medicine / Hospitalist * Mayi Leon SOUND TECHNICIAN SUPERVISOR - 11/05/2019 3:03 PM EDT Physical Therapy Facility/Department: [facility] TELEMETRY Daily Treatment Note NAME: Linda Kim : 1955 Date of Service: 11/05/2019 Discharge Recommendations: Home with assist PRN, Home with Home health PT PT Equipment Recommendations Equipment Needed: No Assessment Body structures, Functions, Activity limitations: Decreased ADL status;Decreased safe awareness;Decreased strength;Decreased endurance;Decreased balance Assessment: Pt at SBA for mobility, increased gait distance. Pt with narrow GERTRUDIS, requiring verbal cues to widen GERTRUDIS to increase stability. No PT goals met this session. Recommend home with PRN assistand home PT at discharge. REQUIRES PT FOLLOW UP: Yes Patient Diagnosis(es): There were no encounter diagnoses. has a past medical history of Cancer (HCC) and Hematuria. has a past surgical history that includes Ectopic surgery (04/1990); Bunionectomy; skin biopsy; bladder tumor excision (06/17/2019); Vulvectomy (06/17/2019); and Tunneled venous port placement. Restrictions Restrictions/Precautions Restrictions/Precautions: Fall Risk Required Braces or Orthoses?: No Position Activity Restriction Other position/activity restrictions: NGT, MARIA DEL CARMEN drain x 1 Subjective General Chart Reviewed: Yes Family / Caregiver Present: No Subjective Subjective: Pt sitting up in the chair, agrees to PT. Pt with NG tube. N95 mask, goggles, and gloves worn by this SOUND TECHNICIAN SUPERVISOR during session. Pt wore mask while in brady. General Comment Comments: Malignant neoplasm of urinary bladder, s/p robotic ant. pelvic exentration with ileal conduit ostomy, vaginal bleeding Pain Screening Patient Currently in Pain: Yes Pain Assessment Pain Assessment: 0-10 Pain Level: 3 Pain Type: Surgical pain Pain Location: Abdomen Vital Signs Patient Currently in Pain: Yes Orientation Orientation Overall Orientation Status: Within Normal Limits Cognition Cognition Overall Cognitive Status: WNL Objective Bed mobility Comment: pt sitting up in the chair Transfers Sit to Stand: Stand by assistance Stand to sit: Stand by assistance Comment: x 2 reps from chair Ambulation Ambulation?: Yes Ambulation 1 Surface: level tile Device: Rolling Walker Assistance: Stand by assistance Quality of Gait: flexed posture Gait Deviations: (narrow GERTRUDIS) Distance: 40 feet x 2 Stairs/Curb Stairs?: No Balance Comments: stood at FWW with SBA Exercises Quad Sets: x 10 Heelslides: x 10 Gluteal Sets: x 10 Hip Flexion: x 10 seated Hip Abduction: x 10 Knee Long Arc Quad: x 10 seated Ankle Pumps: x 10 Comments: AROM BLE G-Code OutComes Score AM-PAC Score Goals Short term goals Time Frame for Short term goals: 2 weeks Short term goal 1: bed mobility modified independent- NOT MET Short term goal 2: transfers modified independent- PROGRESSING Short term goal 3: ambulate 150 ft with device, supervision- PROGRESSING Short term goal 4: negotiate 3 steps with rail, supervision- NOT MET Patient Goals Patient goals : To go home. Plan Plan Times per week: 5x/wk Current Treatment Recommendations: Strengthening, Transfer Training, Balance Training, Gait Training, Functional Mobility Training, Stair training Safety Devices Type of devices: Call light within reach, Left in chair, Nurse notified, All fall risk precautions in place Restraints Initially in place: No Therapy Time Individual Concurrent Group Co-treatment Time In 1415 Time Out 1440 Minutes 25 Timed Code Treatment Minutes: (GT, TP) Mayi Leon PTA * Radha Barrios RN - 11/05/2019 1:00 PM EDT Ileal conduit 1 1/4 inch, mucosa pink, pouching system intact, draining yellow urine into bedside drainage garbage collector. Discussed ileal conduit care. Has no questions about urostomy care at present. States she is tired out and needs to get her strength back. Does not want to participate in care at present due to fatigue. Supplies, pattern and instructions at bedside. Plan to continue urostomy teaching as tolerated by patient. * Carol Mckeon MD - 11/05/2019 8:49 AM EDT Nutrition Progress Note Linda Kim : 1955(64 y.o.) Date: November 05, 2019 CC: TPN Interval events: For CT later today. Still taking fair amount of ice chips, nurses trying to account for that when document I/O's. No BM, still feels very dry and glad lasix is stopped. Diet: Diet NPO Effective Now Exceptions are: Sips with Meds, Ice Chips PN-Adult 2 IN 1 Central Line (Custom) I/Os: Intake/Output Summary (Last 24 hours) at 11/05/2019 0849 Last data filed at 11/05/2019 0545 Gross per 24 hour Intake 0 ml Output 2035 ml Net -2035 ml Weight: ABW: Admission weight: 119 lb (54 kg) Body mass index is 20.11 kg/m . Line: Med Port R Internal Jugular (NOT SUBCLAVIAN as in nursing documentation) SL [facility]: [facility]2019 [facility] Objective: Vitals: 11/04/195 11/05/19 0048 11/05/19 0618 11/05/19 0825 BP: 129/68 115/65 132/77 Pulse: 113 111 108 Resp: 18 18 18 16 Temp: 97.4 F (36.3 C) 98.3 F (36.8 C) 98.9 F (37.2 C) TempSrc: Temporal Temporal Temporal SpO2: 97% 96% 97% 97% Weight: Height: Physical Exam Vitals signs and nursing note reviewed. Constitutional: Comments: Thin WD WF sitting up in chair, conversant, NAD Pulmonary: Effort: Pulmonary effort is normal. No respiratory distress. Breath sounds: No stridor. No wheezing. Abdominal: General: Bowel sounds are normal. There is no distension. Palpations: Abdomen is soft. Tenderness: There is no abdominal tenderness. Comments: Distended, some BS present, appropriately TTP Musculoskeletal: Right lower leg: No edema. Left lower leg: No edema. Renal Panel: Recent Labs 11/03/19 0126 11/04/19 0258 11/05/19 0150 NA 140 138 142 K 3.2* 3.5 4.0 CL 106 107 112* CO2 28 23 20* PHOS 4.3 3.7 3.8 BUN 40* 40* 45* CREATININE 0.59 0.53 0.52 MG 2.2 2.4* 2.3 Assessment: Malnutrition -patient meets ASPEN criteria for severe malnutrition-->severe loss of muscle mass, mod fat stores and less than 50% needed energy intake x 4 days with difficulty maintaining weight/intake prior to surgery, depending on supplements Electrolyte abnormalities -potassium finally at 4, still with very large amounts of potassium in TPN , currently 125 meq in bag, will begin to back down on amount -keep same phos and mag -cycle once taking liquids Renal insufficiency -improved, CrCl 90 today, tolerating protein at 1.8 gm/kg IBW Bladder cancer -hematuria (bernardino blood/clots) late 2018/early 2019 initially thought to be UTI, referred to urology as outpt, cystoscopy showed a 6cm sessile/friable tumor along anterior right lateral bladder wall-->s/p transurethral resection (Dr. Coffey) on 06/17/19 -pathology: invasive high grade bladder ca -neoadjuvant chemotherapy initiated 07/2019 in [place] (Dr. Prieto), completed 10/15/2019 -s/p robotic anterior pelvic exenteration, bilat pelvic lymph node dissection, SBR for ileal conduit creation on 10/28/19 Leukocytosis -heme onc consulted for WBC 57,900 on 10/29/19, thought to be reactive, down to 25,900 today Sinus tach, increased O2 demand -started on hep gtt for PE concern evening of 10/29/19-->VQ neg 10/29 and anticoagulation stopped-->much improved High grade vulvar dysplasia -left partial simple vulvectomy 06/17/19 (Dr. Salinas), and micheal anal bx c/w anal dysplasia PLAN SUMMARY, and as above: -electrolyte adjustments as above, cycle once tolerating clears * Matteo Layne MD - 11/05/2019 7:20 AM EDT UROLOGY PROGRESS NOTE PATIENT NAME: Linda Kim DATE OF : 1955 ADMISSION DATE: 10/28/2019 5:41 AM TODAY'S DATE: 11/05/2019 Subjective Passed flatus this morning. No nausea, vomiting. NG output decreased since patient stopped eating ice chips. Ambulating with nursing. Feels hungry. Using IS. Objective VS: BP 132/77 Pulse 108 Temp 98.9 F (37.2 C) (Temporal) Resp 18 Ht 5' 4.5 (1.638 m) Wt 119 lb (54 kg) SpO2 97% BMI 20.11 kg/m Vitals: 11/05/19 0618 BP: 132/77 Pulse: 108 Resp: 18 Temp: 98.9 F (37.2 C) SpO2: 97% I & O - 24hr: Intake/Output Summary (Last 24 hours) at 11/05/2019 0720 Last data filed at 11/05/2019 0545 Gross per 24 hour Intake 0 ml Output 2035 ml Net -2035 ml Physical Exam: General: HEENT: Resp: Abdomen: No acute distress NG tube with bilious drainage Normal effort Soft, non-tender, mildly distended, MARIA DEL CARMEN with scant SS output : Ileal conduit with pink stoma, some brown mucus overlying, and B/L stentser extruding draining yellow urine Skin: Skin color, texture, turgor normal, no rashes or lesions Labs and Imaging Studies Labs: CBC: Recent Labs 11/03/19 0126 11/03/19 1310 11/04/19 0258 11/05/19 0150 WBC 20.9* -- 25.9* 26.0* HGB 8.2* 9.0* 9.5* 9.1* HCT 24.5* 26.9* 28.7* 28.3* MCV 95.8 -- 96.8 97.2 PLT 358 -- 429 504* BMP: Recent Labs 11/03/19 0126 11/04/19 0258 11/05/19 0150 NA 140 138 142 K 3.2* 3.5 4.0 CL 106 107 112* CO2 28 23 20* PHOS 4.3 3.7 3.8 BUN 40* 40* 45* CREATININE 0.59 0.53 0.52 Magnesium: Lab Results Component Value Date MG 2.3 11/05/2019 Phosphate: Lab Results Component Value Date PHOS 3.8 11/05/2019 PT/INR: No results for input(s): PROTIME, INR in the last 72 hours. U/A: Lab Results Component Value Date LEUKOCYTESUR 250 10/31/2019 WBCUA 11-25 10/31/2019 RBCUA 51-100 10/31/2019 BACTERIA Few 10/31/2019 GLUCOSEU Normal 10/31/2019 Urine Culture: Component Value Date/Time LABURIN No growth (<1,000 CFU/ml). 10/31/20192026 Imaging Studies: CT A/P without contrast 10/29 IMPRESSION: Free intraperitoneal fluid appears denser than simple ascites and is suspicious for peritoneal blood CTR: I spoke with Raquel, the patient's nurse via telephone at 10:12 AM 10/30/2019. Abdominal wall air, free intraperitoneal air and pelvic extraperitoneal air consistent with the patient's recent surgery Ileal conduit with catheter and bilateral ureteral stents. There is no hydronephrosis. Small bilateral pleural effusions and bilateral dependent atelectasis KUB 10/29 IMPRESSION: 1. Most concerning for ileus. Continued follow-up recommended to exclude obstruction, however. Assessment and Plan ASSESMENT: 64 yo F with high grade MIBC, micropapillary variant; Stage IIIB pT2b pN2 M0, s/p neoadjuvant chemoand robotic anterior pelvic exenteration, B/L PLND with ileal conduit (10/28/2019). - Post-op anemia (resolved), Hgb stable - Post-op ileus (improving): NGT in, decreased output; on TPN; passing flatus - Leukocytosis (stable): h/o lymphoma; B/UCx no growth to date; on Zosyn per medicine PLAN: - Daily KUB - Entereg discontinued - Continue to monitor output from NGT. Will proceed with clamp trial once output decreases - Continue TPN until able to tolerate PO - Continue lovenox for DVT ppx - Encouraged ambulation - PT/OT recommending facility but possible home depending on progress - Echo negative - SCr at baseline - Maintain MARIA DEL CARMEN. Maintain bilateral ureteral stents. - Persistent leukocytosis, heme/onc on board. Blood and urine cultures no growth. Currently on Zosyn, would consider trial off Abx. - Appreciate medicine recommendations Matteo Layne MD 7:30 AM 11/05/2019 * Jeremy Queen MD - 11/04/2019 4:36 PM EDT Patient evaluated on PM rounds Still without bowel function, NGT with decreased output since limiting ice chips. No nausea/vomiting KUB with demonstration of stable distended SB loops. Received enema recently. Encouraged patient to ambulate with assistance of nursing and/or PT/OT (nonote from today yet). Explained that return of bowel function will be most greatly assisted by increases in activity. Will re-assess KUB tomorrow. D/w Dr. Huma Queen, PGY-4 11/04/2019 4:38 PM For questions/concerns please page liquefaction supervisor Urology resident * Carol Mckeon MD - 11/04/2019 3:05 PM EDT Nutrition Progress Note Linda Kim : 1955(64 y.o.) Date: November 04, 2019 CC: TPN Interval events: Frustrated with not being able to eat. Taking a lot of ice chips, at least all she is allowed. Feels hungry. Pain better. Diet: Diet NPO Effective Now Exceptions are: Sips with Meds, Ice Chips PN-Adult 2 IN 1 Central Line (Custom) I/Os: Intake/Output Summary (Last 24 hours) at 11/04/20192006 Last data filed at 11/04/2019 1817 Gross per 24 hour Intake Output 3625 ml Net -3625 ml Weight: ABW: Admission weight: 119 lb (54 kg) Body mass index is 20.11 kg/m . Line: Med Port R Internal Jugular (NOT SUBCLAVIAN as in nursing documentation) SL Placed: 07/2019 [facility] Objective: Vitals: 11/04/19 1413 11/04/19 1624 11/04/19 1643 11/04/19 1730 BP: 135/76 (!) 133/99 130/88 Pulse: 114 124 98 Resp: Temp: 98.4 F (36.9 C) 98.9 F (37.2 C) TempSrc: Temporal Temporal SpO2: 95% 95% 95% Weight: Height: Physical Exam Vitals signs and nursing note reviewed. Constitutional: Comments: Thin WD female, sitting up in bed, awake/alert, NAD HENT: Nose: Comments: NG in place Cardiovascular: Rate and Rhythm: Regular rhythm. Tachycardia present. Pulmonary: Effort: No respiratory distress. Breath sounds: No stridor. No wheezing or rhonchi. Comments: Good air exchange anteriorly Chest: Chest wall: No tenderness. Abdominal: Comments: Distended, some BS present, appropriately TTP Musculoskeletal: Right lower leg: No edema. Left lower leg: No edema. Renal Panel: Recent Labs 11/02/19 0207 11/03/19 0126 11/04/19 0258 NA 136 140 138 K 3.2* 3.2* 3.5 CL 103 106 107 CO2 29 28 23 PHOS 3.1 4.3 3.7 BUN 34* 40* 40* CREATININE 0.64 0.59 0.53 MG 2.1 2.2 2.4* Assessment: Malnutrition -patient meets ASPEN criteria for severe malnutrition-->severe loss of muscle mass, mod fat stores and less than 50% needed energy intake x 4 days with difficulty maintaining weight/intake prior to surgery, depending on supplements Electrolyte abnormalities -hypophosphatemia improved -poItassium still low normal, has large amount of potassium already in TPN, but with limited IV access difficult to bolus separately -keep mag high normal to help with potassium repletion -hyponatremia better Renal insufficiency -improved, CrCl 90 today, tolerating protein at 1.8 gm/kg IBW Bladder cancer -hematuria (bernardino blood/clots) late 2018/early 2019 initially thought to be UTI, referred to urology as outpt, cystoscopy showed a 6cm sessile/friable tumor along anterior right lateral bladder wall-->s/p transurethral resection (Dr. Coffey) on 06/17/19 -pathology: invasive high grade bladder ca -neoadjuvant chemotherapy initiated 07/2019 in [place] (Dr. Prieto), completed 10/15/2019 -s/p robotic anterior pelvic exenteration, bilat pelvic lymph node dissection, SBR for ileal conduit creation on 10/28/19 Leukocytosis -heme onc consulted for WBC 57,900 on 10/29/19, thought to be reactive, down to 25,900 today Sinus tach, increased O2 demand -started on hep gtt for PE concern evening of 10/29/19-->VQ neg 10/29 and anticoagulation stopped-->much improved High grade vulvar dysplasia -left partial simple vulvectomy 06/17/19 (Dr. Salinas), and micheal anal bx c/w anal dysplasia PLAN SUMMARY, and as above: -electrolyte adjustments as above * Keven Downs, DO - 11/04/2019 11:07 AM EDT [facility] Progress Note Linda Kim : 1955(64 y.o.) Date: November 04, 2019 Subjective: HPI The patient complains of tachycardia The patient feels their symptoms areimproving no events or new concerns Scheduled Meds: bisacodyl 10 mg Rectal BID piperacillin-tazobactam 3.375 g Intravenous Q8H ipratropium 0.5 mg Nebulization TID furosemide 40 mg Intravenous Daily metoprolol 10 mg Intravenous Q8H lidocaine 1 % injection 5 mL Intradermal Once sodium chloride flush 10 mL Intravenous 2 times per day sodium chloride flush 10 mL Intravenous 2 times per day heparin flush 250 Units Intravenous 2 times per day sodium chloride flush 10 mL Intracatheter Daily heparin flush 500 Units Intracatheter Daily enoxaparin 40 mg Subcutaneous Daily acetaminophen 1,000 mg Per NG tube Q6H mometasone-formoterol 2 puff Inhalation BID sodium chloride flush 10 mL Intravenous 2 times per day Continuous Infusions: PN-Adult 2 IN 1 Central Line (Custom) PN-Adult 2 IN 1 Central Line (Custom) 62.5 mL/hr at 11/03/19 1808 PRN Meds:ipratropium, sodium chloride flush, heparin flush, LORazepam, metoprolol, sodium chloride flush, heparin flush, sodium chloride flush, hydrOXYzine, polyethylene glycol, traMADol OR traMADol, ondansetron, labetalol, promethazine, melatonin, sodium chloride flush, morphine OR morphine Review of Systems Constitutional: Negative for chills and fever. HENT: Negative for rhinorrhea and sinus pain. Respiratory: Negative for cough and shortness of breath. Cardiovascular: Negative for chest pain and palpitations. Gastrointestinal: Positive for abdominal distention (improving) and abdominal pain (improving). Negative for constipation, diarrhea, nausea and vomiting. (+) min BM, (+) flatus Genitourinary: Positive for vaginal bleeding (improving). Negative for pelvic pain. Musculoskeletal: Negative for arthralgias and back pain. Skin: Negative for rash. Neurological: Negative for dizziness and light-headedness. Psychiatric/Behavioral: Negative for dysphoric mood. The patient is not nervous/anxious. Interval Pertinent History: Social History Tobacco Use Smoking status: Current Every Day Smoker Packs/day: 0.50 Years: 25.00 Pack years: 12.50 Types: Cigarettes Smokeless tobacco: Never Used Substance Use Topics Alcohol use: Not Currently Objective: Patient Vitals for the past 24 hrs: BP Temp Temp src Pulse Resp SpO2 11/04/19 0927 16 97 % 11/04/19 0908 (!) 141/83 98.7 F (37.1 C) Temporal 101 16 96 % 11/04/19 0523 130/78 98.4 F (36.9 C) Temporal 103 16 98 % 11/04/19 0121 137/75 97.8 F (36.6 C) Temporal 107 16 95 % 11/03/19 2145 111/70 97.5 F (36.4 C) Temporal 98 18 97 % 11/03/19 2108 15 94 % 11/03/19 1750 125/66 97.5 F (36.4 C) Temporal 117 16 93 % 11/03/19 1329 123/68 98.4 F (36.9 C) Temporal 110 20 97 % 11/03/19 1233 16 98 % Average, Min, and Max for last 24 hours Vitals: TEMPERATURE: Temp Av.1 F (36.7 C) Min: 97.5 F (36.4 C) Max: 98.7 F (37.1 C) RESPIRATIONS RANGE: Resp Av.6 Min: 15 Max: 20 PULSE RANGE: Pulse Av Min: 98 Max: 117 BLOOD PRESSURE RANGE: Systolic (24hrs), Av , Min:111 , Max:141 ; Diastolic (24hrs), Av, Min:66, Max:83 PULSE OXIMETRY RANGE: SpO2 Av.1 % Min: 93 % Max: 98 % I/O last 3 completed shifts: In: 150 [IV Piggyback:150] Out: 5090 [Urine:3400; Emesis/NG output:1600; Drains:90] Physical Exam Vitals signs and nursing note reviewed. Constitutional: General: She is not in acute distress. Appearance: She is normal weight. She is not ill-appearing or diaphoretic. Interventions: Nasal cannula in place. Comments: NG tube intact HENT: Head: Normocephalic and atraumatic. Mouth/Throat: Mouth: Mucous membranes are not pale and not dry. Pharynx: Uvula midline. No oropharyngeal exudate. Eyes: General: No scleral icterus. Conjunctiva/sclera: Conjunctivae normal. Pupils: Pupils are equal, round, and reactive to light. Neck: Musculoskeletal: Normal range of motion and neck supple. Thyroid: No thyromegaly. Vascular: No JVD. Trachea: No tracheal deviation. Cardiovascular: Rate and Rhythm: Regular rhythm. Tachycardia present. Heart sounds: Normal heart sounds. No murmur. No friction rub. No gallop. Pulmonary: Effort: Pulmonary effort is normal. No respiratory distress. Breath sounds: Examination of the right-lower field reveals rales. Examination of the left-lower field reveals rales. Decreased breath sounds (diffuse) and rales present. No wheezing or rhonchi. Chest: Chest wall: No tenderness. Abdominal: General: Bowel sounds are normal. There is distension (improving). Palpations: Abdomen is soft. There is no mass. Tenderness: There is generalized abdominal tenderness (mild). There is no guarding or rebound. Hernia: No hernia is present. Comments: MARIA DEL CARMEN/Conduit catheter intact Musculoskeletal: Normal range of motion. General: No swelling, tenderness or deformity. Right lower leg: Edema (trace) present. Left lower leg: Edema (trace) present. Lymphadenopathy: Cervical: No cervical adenopathy. Skin: General: Skin is warm and dry. Capillary Refill: Capillary refill takes less than 2 seconds. Coloration: Skin is not pale. Findings: No erythema or rash. Neurological: General: No focal deficit present. Mental Status: She is alert and oriented to person, place, and time. Cranial Nerves: No cranial nerve deficit. Sensory: No sensory deficit. Motor: No abnormal muscle tone. Coordination: Coordination normal. Deep Tendon Reflexes: Reflexes normal. Psychiatric: Mood and Affect: Mood normal. Behavior: Behavior normal. Thought Content: Thought content normal. Lab Results Component Value Date WBC 25.9 (H) 11/04/2019 HGB 9.5 (L) 11/04/2019 HCT 28.7 (L) 11/04/2019 MCV 96.8 11/04/2019 PLT 429 11/04/2019 Lab Results Component Value Date NA 138 11/04/2019 K 3.5 11/04/2019 CL 107 11/04/2019 CO2 23 11/04/2019 BUN 40 11/04/2019 CREATININE 0.53 11/04/2019 GLUCOSE 130 11/04/2019 CALCIUM 9.1 11/04/2019 No results found for: LABA1C 10/30/2019 18:55:32 EDT Exam CR Abdomen AP Ordering Physician MD TATYANA, DAVID CARCAMO Accession Number [id number] CPT4 Codes 80348 () Reason For Exam Bloating, ?? ileus Report SINGLE VIEW ABDOMEN CLINICAL INDICATION: Bloating, ?? ileus TECHNIQUE: Single view abdomen x-ray COMPARISON: 10/28/2019 FINDINGS: There is a catheter in the right lower quadrant urostomy and bilateral ureteral stents. Surgical drain in the pelvis. Subcutaneous gas along the abdominal wall on the left compatible with recent surgery. Multiple dilated small bowel loops, with some colonic gas as well. Bowel dilation is more prominent than on the prior study. IMPRESSION: 1. Most concerning for ileus. Continued follow-up recommended to exclude obstruction, however. 10/30/2019 09:30:41 EDT Exam NM Pulmonary Perfusion w/ Vent Aerosol Ordering Physician MD FRANTZ JOBY RUBEN Accession Number [id number] CPT4 Codes 53068 (), A9567 () Reason For Exam tachycardia, elevated d-dimer Report VENTILATION-PERFUSION (VQ) SCAN CLINICAL INDICATION: Tachycardia, elevated d- dimer Multiple ventilation images of the lungs were obtained after the inhalation of approximately 1 millicuries of technetium-99m DTPA aerosol. Corresponding perfusion images of the lungs were then acquired after the intravenous administration of 5 millicuries of technetium-99m MAA. COMPARISON: Chest x-ray performed the day prior FINDINGS: There is a diffusely heterogeneous appearance of the ventilation images of the lungs, with deposition of aerosol within the central airways. No mismatched perfusion defects are seen on the perfusion images. IMPRESSION: Low probability study for pulmonary embolism. Heterogeneous appearance of the ventilation images with deposition of aerosol within the central airways, consistent with a component of obstructive lung disease. Exam Date/Time 10/30/2019 09:54:[address] Abdomen/Pelvis (No PO, No IV) Ordering Physician MD QUEEN MARWAN M. Accession Number [id number] CPT4 Codes 41531 (CT Abdomen/Pelvis (No PO, No IV)) Reason For Exam Ongoing anemia, concer for hematoma Report Clinical indication: Ongoing anemia. Concern for hematoma. History of bladder cancer. Comparison: None Radiation dose: DLP 208 mGycm Noncontrast imaging from diaphragm through the ischial tuberosities was performed with axial, coronal and sagittal images reconstructed. Images which include the lung bases show emphysematous changes in the lungs. Small bilateral pleural effusions are present with mild dependent atelectasis, right greater andriy n left. No focal inherent masses are noted in liver or spleen. Gallbladder appears mildly distended. Calcifications are noted in the pancreatic head and scattered through the body and tail. Adrenal glands are not enlarged. Kidneys contain stents bilaterally which extends through the ureters into the patient's recently constructed ileal conduit. There is also a catheter in the ileal conduit. Free intraperitoneal air is present. There is also air within the abdominal wall and subcutaneous tissues. Extraperitoneal air is present in the pelvis all related to the patient's recent surgery. There issmall to moderate amount of free fluid around liver and spleen. Fluid is present in the paracolic gutters and there is fluid in the pelvis. Fluid appears slightly more dense than simple ascites and is suspicious for bloody fluid. A surgical drain is noted in the pelvis. Bowel loops are mildly dilated with air and fluid in the ileus pattern. Aorta is atherosclerotic with no aneurysm. Vena cava is incompletely distended. There is no retroperitoneal adenopathy noted. Degenerative endplate hypertrophy is noted in the spine but there are no acute osseous abnormalities. L4-L5 and L5-S1 discs show degenerative changes. IMPRESSION: Free intraperitoneal fluid appears denser than simple ascites and is suspicious for peritoneal blood CTR: I spoke with Raquel, the patient's nurse via telephone at 10:12 AM 10/30/2019. Abdominal wall air, free intraperitoneal air and pelvic extraperitoneal air consistent with the patient's recent surgery Ileal conduit with catheter and bilateral ureteral stents. There is no hydronephrosis. TRANSTHORACIC ECHOCARDIOGRAM 10/30/2019 INDICATIONS: Tachycardia. CONCLUSIONS SUMMARY: 1. Left ventricle: The cavity size is normal. Wall thickness is normal. Systolic function is hyperdynamic by visual assessment. The estimated ejection fraction is 75%. There are no regional wall motion abnormalities. Left ventricular diastolic function parameters are normal. 2. Right ventricle: The cavity size is normal. Systolic function is normal. Right ventricular systolic pressure is within the normal range. 3. No significant valve disease. 4. Inferior vena cava: The vessel is small, appearing collapsed, consistent with low central venous pressure. The IVC collapses by greater than 50% with inspiration. Additional results of the last 24 hours have been reviewed. Assessment and Plan: Principal Problem: Malignant neoplasm of urinary bladder (HCC) Active Problems: Tachycardia Leukocytosis VICTOR HUGO (acute kidney injury) (HCC) SIRS (systemic inflammatory response syndrome) (HCC) Hypoxia Postoperative anemia due to acute blood loss Ileus (HCC) Bilateral pleural effusion Peritoneal bleeding Vaginal bleeding Severe malnutrition (HCC) Resolved Problems: * No resolved hospital problems. * # SIRS # Hypoxia, sinus tachycardia, acute leukocytosis, mildly elevated procal (improving) # Bilateral pleural effusion -in the setting of acute blood loss anemia and bilateral pleural effusion, negative V/Q scan and unremarkable echo -leukocytosis presumed to be reactive per hemo/onc -tachycardia of unknown chronicity, presumed to be 2/2 b/l pleural effusion and anemia -inadequate pleural fluid for thora on 11/01/19 -Cx NTD -monitor on tele, IS, bronchodilators, wean off O2 as able, O2 sat goal >92% - trial of abx: DC vanc, cont zosyn (10/29-11/04) and observe off antibiotics. -PRN IV lasix for hypoxia albeit limited utility due to ongoing IVF, -trial of IV metoprolol, transition to PO 25 mg BID if tachycardia persist and pt tolerating PO -consider discharging on PO metoprolol and f/u with PCP if tachycardia persist despite improvement of pleural effusion, anemia and adequate abx coverage # Ileus, improving -in the setting of recent surgery with peritoneal bleed on CT -judicious use of IVF due to b/l pleural effusion and hypoxia, -replete lytes PRN -started on TPN on the this admission -NPO, NGT # Postoperative anemia due to acute blood loss, # Vaginal bleeding, improving # Peritoneal bleed -s/p 2 U pRBC 10/30/19 and tranexamic acid x2 -monitor H/H trend # Accelerated HTN,i improving -no documented hx of HTN -PRN labetalol, sBP>160, -will consider PO antihypertensive If HTN persist despite resolution of ileus and appropriate pain control # VICTOR HUGO, resolved -baseline Cr 0.5-0.7 -s/p IVF, caution with nephrotoxic meds # Hyperkalemia, resolved -cont to monitor # Tobacco abuse suspect underlining obstructive lung disease -started on bronchodilators -wrote Rx for home spiriva and albuterol inhalers -recommend f/u with PCP outpt PFT # Malignance (valvular mass and bladder cancer) oncology Dr Prieto at [facility] # 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 # Malignant neoplasm of urinary bladder -s/p chemo completed September 2019 -s/p Robotic anterior pelvic exenteration, B/L PLND with ileal conduit 10/28/2019 -managed by primary # DVTProphylaxis: SCDs # Disposition:will follow I spent over 51% of total time providing counseling or incoordination of care: > 35 minutes discussed with nurse, I personally examined the patient and I personally reviewed chart, data, labsradiology reports 6AM-6PM please page: Electronically signed by Keven Downs DO on November 04, 2019 at 11:07 AM 6PM-6AM please page: [facility] [place] [facility] * Radha Barrios RN - 11/04/2019 9:55 AM EDT Ileal conduit 1 1/4 inch, mucosa red, moist, bilateral stents intact, peristomal skin intact,draining marcus urine into bedside drainage bag. Lesson on urostomy care with pouching system change done. Attentive to teaching. Supplies, urostomy teaching folder and pattern at bedside. Plan to continue with urostomy care teaching. * Didier Coffey MD - 11/04/2019 6:27 AM EDT UROLOGY PROGRESS NOTE PATIENT NAME: Linda Kim DATE OF : 1955 ADMISSION DATE: 10/28/2019 5:41 AM TODAY'S DATE: 11/04/2019 Subjective No acute events overnight. Had small BM yesterday No nausea vomiting Up to chair, not much ambulation Patient expressed some frustration with prolonged hospital course, wants a cup of coffee and NGT, reassured Objective VS: BP 130/78 Pulse 103 Temp 98.4 F (36.9 C) (Temporal) Resp 16 Ht 5' 4.5 (1.638 m) Wt 119 lb (54 kg) SpO2 98% BMI 20.11 kg/m Vitals: 11/04/19 0523 BP: 130/78 Pulse: 103 Resp: 16 Temp: 98.4 F (36.9 C) SpO2: 98% I & O - 24hr: Intake/Output Summary (Last 24 hours) at 11/04/2019 0627 Last data filed at 11/04/2019 0618 Gross per 24 hour Intake 150 ml Output 5090 ml Net -4940 ml Physical Exam: General: Neck: Resp: Abdomen: No acute distress Supple Normal effort Soft, non-tender, mildly distended, MARIA DEL CARMEN with scant SS output : Ileal conduit with pink stoma, some brown mucus overlying, and B/L stents/catheter extruding draining yellow urine Skin: Skin color, texture, turgor normal, no rashes or lesions Labs and Imaging Studies Labs: CBC: Recent Labs 11/02/19 0207 11/03/19 0126 11/03/19 1310 11/04/19 0258 WBC 22.5* 20.9* -- 25.9* HGB 7.8* 8.2* 9.0* 9.5* HCT 23.4* 24.5* 26.9* 28.7* MCV 93.8 95.8 -- 96.8 PLT 328 358 -- 429 BMP: Recent Labs 11/02/19 0207 11/03/19 0126 11/04/19 0258 NA 136 140 138 K 3.2* 3.2* 3.5 CL 103 106 107 CO2 29 28 23 PHOS 3.1 4.3 3.7 BUN 34* 40* 40* CREATININE 0.64 0.59 0.53 Magnesium: Lab Results Component Value Date MG 2.4 11/04/2019 Phosphate: Lab Results Component Value Date PHOS 3.7 11/04/2019 PT/INR: No results for input(s): PROTIME, INR in the last 72 hours. U/A: Lab Results Component Value Date LEUKOCYTESUR 250 10/31/2019 WBCUA 11-25 10/31/2019 RBCUA 51-100 10/31/2019 BACTERIA Few 10/31/2019 GLUCOSEU Normal 10/31/2019 Urine Culture: Component Value Date/Time LABURIN No growth (<1,000 CFU/ml). 10/31/20192026 Imaging Studies: CT A/P without contrast 10/29 IMPRESSION: Free intraperitoneal fluid appears denser than simple ascites and is suspicious for peritoneal blood CTR: I spoke with Raquel, the patient's nurse via telephone at 10:12 AM 10/30/2019. Abdominal wall air, free intraperitoneal air and pelvic extraperitoneal air consistent with the patient's recent surgery Ileal conduit with catheter and bilateral ureteral stents. There is no hydronephrosis. Small bilateral pleural effusions and bilateral dependent atelectasis KUB 10/29 IMPRESSION: 1. Most concerning for ileus. Continued follow-up recommended to exclude obstruction, however. Assessment and Plan ASSESMENT: 64 yo F with MIBC s/p Robotic anterior pelvic exenteration, B/L PLND with ileal conduit 10/28/2019. PLAN: - Hgb stable this morning - Continue lovenox for DVT ppx - Encouraged ambulation - PT/OT recommending facility but possible home depending on progress - Daily KUB - Entereg discontinued - Continue to monitor output from NGT. Will proceed with clamp trial once output decreases - Echo negative - SCr at baseline - Maintain MARIA DEL CARMEN. Conduit catheter removed on rounds this AM - Persistent leukocytosis, heme/onc on board. Blood and urine cultures no growth. Currently on Zosyn - Appreciate medicine recommendations Jeremy Queen, PGY-4 11/04/2019 6:27 AM For questions/concerns please page liquefaction supervisor Urology resident The history and physical has been reviewed. The pertinent findings from the history of present illness, past medical history, family history, social history, review of systemshave been noted and confirmed that are unchanged. Discussed with the urology resident. Agree with assessment and plan * Rafy Cruz, [facility] - 11/03/2019 9:08 PM EDT Patient Evaluation Form The patient is currently receiving atrovent QID Points 0 1 2 3 4 Points Totals Pulmonary Status (-/+) History Smoking history < 20 pack years Smoking history > 20 pack years Pulmonary Disorder (acute or chronic) Severe or Chronic with Exacerbation 3 Surgical Status No Surgery Trach PEG General Surgery Lower Abdominal Thoracic or Upper Abdominal Thoracic with Pulmonary Disorder 2 Chest X-ray Clear None Ordered Chronic Changes CXR results Pending Infiltrates, atelectasis, pleural effusion, or edema Infiltrates in more than one lobe Infiltrate + Atelectasis, &/or pleural effusion 2 Respiratory Pattern Regular, RR = 12-20 Increased, RR = 21-25 FELTON, irregular, or RR = 26-30 Decreased FEV1 or RR = 31-35 Severe SOB, used of of accessory muscles, or RR = > 35 0 Mental Status Alert, oriented, cooperative Confused, but follows commands Lethargic or un-able to follow commands Obtunded Comatose 0 Breath Sounds Clear to auscultation Decreased unilaterally or in bases only Decreased bilaterally Crackles or intermittent wheezes Wheezes 3 Cough Strong, spontaneous, & nonproductive Strong, spontaneous, & productive Weak, nonproductive Weak, productive or with wheezes No spontaneous cough or may require suctioning 2 Level of Activity Ambulatory Ambulatory with Assist Non-ambulatroy Paraplegic Quadriplegic 1 Triage 1 > 20 pts Triage 2 16-20 pts Triage 3 11- 15 pts Triage 4 6 - 10 pts Triage 5 0 - 5 pts TOTAL POINTS = 13 Triage Score = 3 Changing Therapy to TID + PRN. Encourage IS/deep breathing. * Keven Downs, DO - 11/03/2019 12:16 PM EDT [facility] Progress Note Linda Kim : 1955(64 y.o.) Date: November 03, 2019 Subjective: HPI The patient complains of tachycardia The patient feels their symptoms areimproving no events or new concerns Scheduled Meds: bisacodyl 10 mg Rectal BID furosemide 40 mg Intravenous Daily metoprolol 10 mg Intravenous Q8H lidocaine 1 % injection 5 mL Intradermal Once sodium chloride flush 10 mL Intravenous 2 times per day sodium chloride flush 10 mL Intravenous 2 times per day heparin flush 250 Units Intravenous 2 times per day sodium chloride flush 10 mL Intracatheter Daily heparin flush 500 Units Intracatheter Daily enoxaparin 40 mg Subcutaneous Daily acetaminophen 1,000 mg Per NG tube Q6H ipratropium 0.5 mg Nebulization Q4H WA mometasone-formoterol 2 puff Inhalation BID piperacillin-tazobactam 3.375 g Intravenous Q8H sodium chloride flush 10 mL Intravenous 2 times per day alvimopan 12 mg Oral Daily Continuous Infusions: PN-Adult 2 IN 1 Central Line (Custom) PN-Adult 2 IN 1 Central Line (Custom) 62.5 mL/hr at 11/03/19 0830 PRN Meds:sodium chloride flush, heparin flush, LORazepam, metoprolol, sodium chloride flush, heparin flush, sodium chloride flush, hydrOXYzine, polyethylene glycol, traMADol OR traMADol, ondansetron, labetalol, promethazine, melatonin, sodium chloride flush, morphine OR morphine Review of Systems Constitutional: Negative for chills and fever. HENT: Negative for rhinorrhea and sinus pain. Respiratory: Negative for cough and shortness of breath. Cardiovascular: Negative for chest pain and palpitations. Gastrointestinal: Positive for abdominal distention (improving) and abdominal pain (improving). Negative for constipation, diarrhea, nausea and vomiting. (-)BM, (+) flatus Genitourinary: Positive for pelvic pain (around surgical site ) and vaginal bleeding (improving). Musculoskeletal: Negative for arthralgias and back pain. Skin: Negative for rash. Neurological: Negative for dizziness and light-headedness. Psychiatric/Behavioral: Negative for dysphoric mood. The patient is not nervous/anxious. Interval Pertinent History: Social History Tobacco Use Smoking status: Current Every Day Smoker Packs/day: 0.50 Years: 25.00 Pack years: 12.50 Types: Cigarettes Smokeless tobacco: Never Used Substance Use Topics Alcohol use: Not Currently Objective: Patient Vitals for the past 24 hrs: BP Temp Temp src Pulse Resp SpO2 11/03/19 0927 (!) 146/67 98.4 F (36.9 C) Temporal 92 20 97 % 11/03/19 0925 16 96 % 11/03/19 0602 131/75 98 F (36.7 C) Temporal 88 16 96 % 11/03/19 0105 125/77 97.9 F (36.6 C) Temporal 99 16 97 % 11/02/19 2112 110/77 98.4 F (36.9 C) Temporal 109 16 95 % 11/02/19 1809 133/82 97.7 F (36.5 C) Temporal 111 16 94 % 11/02/19 1559 18 94 % Average, Min, and Max for last 24 hours Vitals: TEMPERATURE: Temp Av.1 F (36.7 C) Min: 97.7 F (36.5 C) Max: 98.4 F (36.9 C) RESPIRATIONS RANGE: Resp Av.9 Min: 16 Max: 20 PULSE RANGE: Pulse Av.8 Min: 88 Max: 111 BLOOD PRESSURE RANGE: Systolic (24hrs), Av , Min:110 , Max:146 ; Diastolic (24hrs), Av, Min:67, Max:82 PULSE OXIMETRY RANGE: SpO2 Av.6 % Min: 94 % Max: 97 % I/O last 3 completed shifts: In: 2358.2 [I.V.:704; IV Piggyback:250] Out: 5710 [Urine:3850; Emesis/NG output:1700; Drains:160] Physical Exam Vitals signs and nursing note reviewed. Constitutional: General: She is not in acute distress. Appearance: She is normal weight. She is not ill-appearing or diaphoretic. Interventions: Nasal cannula in place. Comments: NG tube intact HENT: Head: Normocephalic and atraumatic. Mouth/Throat: Mouth: Mucous membranes are not pale and not dry. Pharynx: Uvula midline. No oropharyngeal exudate. Eyes: General: No scleral icterus. Conjunctiva/sclera: Conjunctivae normal. Pupils: Pupils are equal, round, and reactive to light. Neck: Musculoskeletal: Normal range of motion and neck supple. Thyroid: No thyromegaly. Vascular: No JVD. Trachea: No tracheal deviation. Cardiovascular: Rate and Rhythm: Regular rhythm. Tachycardia present. Heart sounds: Normal heart sounds. No murmur. No friction rub. No gallop. Pulmonary: Effort: Pulmonary effort is normal. No respiratory distress. Breath sounds: Examination of the right-lower field reveals rales. Examination of the left-lower field reveals rales. Decreased breath sounds (diffuse) and rales present. No wheezing or rhonchi. Chest: Chest wall: No tenderness. Abdominal: General: Bowel sounds are normal. There is distension (improving). Palpations: Abdomen is soft. There is no mass. Tenderness: There is generalized abdominal tenderness (improving). There is no guarding or rebound. Hernia: No hernia is present. Comments: MARIA DEL CARMEN/Conduit catheter intact Musculoskeletal: Normal range of motion. General: No swelling, tenderness or deformity. Right lower leg: Edema (+1) present. Left lower leg: Edema (+1) present. Lymphadenopathy: Cervical: No cervical adenopathy. Skin: General: Skin is warm and dry. Capillary Refill: Capillary refill takes less than 2 seconds. Coloration: Skin is not pale. Findings: No erythema or rash. Neurological: General: No focal deficit present. Mental Status: She is alert and oriented to person, place, and time. Cranial Nerves: No cranial nerve deficit. Sensory: No sensory deficit. Motor: No abnormal muscle tone. Coordination: Coordination normal. Deep Tendon Reflexes: Reflexes normal. Psychiatric: Mood and Affect: Mood normal. Behavior: Behavior normal. Thought Content: Thought content normal. Lab Results Component Value Date WBC 20.9 (H) 11/03/2019 HGB 8.2 (L) 11/03/2019 HCT 24.5 (L) 11/03/2019 MCV 95.8 11/03/2019 PLT 358 11/03/2019 Lab Results Component Value Date NA 140 11/03/2019 K 3.2 11/03/2019 CL 106 11/03/2019 CO2 28 11/03/2019 BUN 40 11/03/2019 CREATININE 0.59 11/03/2019 GLUCOSE 138 11/03/2019 CALCIUM 8.7 11/03/2019 No results found for: LABA1C 10/30/2019 18:55:32 EDT Exam CR Abdomen AP Ordering Physician MD TATYANA, DAVID CARCAMO Accession Number [id number] CPT4 Codes 65747 () Reason For Exam Bloating, ?? ileus Report SINGLE VIEW ABDOMEN CLINICAL INDICATION: Bloating, ?? ileus TECHNIQUE: Single view abdomen x-ray COMPARISON: 10/28/2019 FINDINGS: There is a catheter in the right lower quadrant urostomy and bilateral ureteral stents. Surgical drain in the pelvis. Subcutaneous gas along the abdominal wall on the left compatible with recent surgery. Multiple dilated small bowel loops, with some colonic gas as well. Bowel dilation is more prominent than on the prior study. IMPRESSION: 1. Most concerning for ileus. Continued follow-up recommended to exclude obstruction, however. 10/30/2019 09:30:41 EDT Exam NM Pulmonary Perfusion w/ Vent Aerosol Ordering Physician MD FRANTZ, JOBY MIRANDA Accession Number [id number] CPT4 Codes 77471 (), A9567 () Reason For Exam tachycardia, elevated d-dimer Report VENTILATION-PERFUSION (VQ) SCAN CLINICAL INDICATION: Tachycardia, elevated d- dimer Multiple ventilation images of the lungs were obtained after the inhalation of approximately 1 millicuries of technetium-99m DTPA aerosol. Corresponding perfusion images of the lungs were then acquired after the intravenous administration of 5 millicuries of technetium-99m MAA. COMPARISON: Chest x-ray performed the day prior FINDINGS: There is a diffusely heterogeneous appearance of the ventilation images of the lungs, with deposition of aerosol within the central airways. No mismatched perfusion defects are seen on the perfusion images. IMPRESSION: Low probability study for pulmonary embolism. Heterogeneous appearance of the ventilation images with deposition of aerosol within the central airways, consistent with a component of obstructive lung disease. Exam Date/Time 10/30/2019 09:54:[address] Abdomen/Pelvis (No PO, No IV) Ordering Physician MD QUEEN MARWAN M. Accession Number [id number] CPT4 Codes 00681 (CT Abdomen/Pelvis (No PO, No IV)) Reason For Exam Ongoing anemia, concer for hematoma Report Clinical indication: Ongoing anemia. Concern for hematoma. History of bladder cancer. Comparison: None Radiation dose: DLP 208 mGycm Noncontrast imaging from diaphragm through the ischial tuberosities was performed with axial, coronal and sagittal images reconstructed. Images which include the lung bases show emphysematous changes in the lungs. Small bilateral pleural effusions are present with mild dependent atelectasis, right greater andriy n left. No focal inherent masses are noted in liver or spleen. Gallbladder appears mildly distended. Calcifications are noted in the pancreatic head and scattered through the body and tail. Adrenal glands are not enlarged. Kidneys contain stents bilaterally which extends through the ureters into the patient's recently constructed ileal conduit. There is also a catheter in the ileal conduit. Free intraperitoneal air is present. There is also air within the abdominal wall and subcutaneous tissues. Extraperitoneal air is present in the pelvis all related to the patient's recent surgery. There issmall to moderate amount of free fluid around liver and spleen. Fluid is present in the paracolic gutters and there is fluid in the pelvis. Fluid appears slightly more dense than simple ascites and is suspicious for bloody fluid. A surgical drain is noted in the pelvis. Bowel loops are mildly dilated with air and fluid in the ileus pattern. Aorta is atherosclerotic with no aneurysm. Vena cava is incompletely distended. There is no retroperitoneal adenopathy noted. Degenerative endplate hypertrophy is noted in the spine but there are no acute osseous abnormalities. L4-L5 and L5-S1 discs show degenerative changes. IMPRESSION: Free intraperitoneal fluid appears denser than simple ascites and is suspicious for peritoneal blood CTR: I spoke with Raquel, the patient's nurse via telephone at 10:12 AM 10/30/2019. Abdominal wall air, free intraperitoneal air and pelvic extraperitoneal air consistent with the patient's recent surgery Ileal conduit with catheter and bilateral ureteral stents. There is no hydronephrosis. TRANSTHORACIC ECHOCARDIOGRAM 10/30/2019 INDICATIONS: Tachycardia. CONCLUSIONS SUMMARY: 1. Left ventricle: The cavity size is normal. Wall thickness is normal. Systolic function is hyperdynamic by visual assessment. The estimated ejection fraction is 75%. There are no regional wall motion abnormalities. Left ventricular diastolic function parameters are normal. 2. Right ventricle: The cavity size is normal. Systolic function is normal. Right ventricular systolic pressure is within the normal range. 3. No significant valve disease. 4. Inferior vena cava: The vessel is small, appearing collapsed, consistent with low central venous pressure. The IVC collapses by greater than 50% with inspiration. Additional results of the last 24 hours have been reviewed. Assessment and Plan: Principal Problem: Malignant neoplasm of urinary bladder (HCC) Active Problems: Tachycardia Leukocytosis VICTOR HUGO (acute kidney injury) (HCC) SIRS (systemic inflammatory response syndrome) (HCC) Hypoxia Postoperative anemia due to acute blood loss Ileus (HCC) Bilateral pleural effusion Peritoneal bleeding Vaginal bleeding Resolved Problems: * No resolved hospital problems. * # SIRS # Hypoxia, Tachycardia, Acute Leukocytosis, mildly elevated procal (improving) # Bilateral pleural effusion -in the setting of acute blood loss anemia and bilateral pleural effusion, negative V/Q scan and unremarkable echo -leukocytosis presumed to be reactive per hemo/onc -tachycardia of unknown chronicity, presumed to be 2/2 b/l pleural effusion and anemia -inadequate pleural fluid for thorahora on 11/01/19 -Cx NTD -monitor on tele -IS, bronchodilators, trial of metoprolol - trial of abx: DC vanc, cont zosyn (10/29-11/04) and observe off antibiotics. -PRN IV lasix for hypoxia albeit limited utility due to ongoing IVF -may consider discharging on metoprolol if tachycardia persist despite improvement of pleural effusion, anemia and adequate abx coverage # Ileus, improving -in the setting of recent surgery with peritoneal bleed on CT -judicious use of IVF due to b/l pleural effusion and hypoxia, -replete lytes PRN -started on TPN on the this admission -NPO, NGT # Postoperative anemia due to acute blood loss, # Vaginal bleeding, improving # Peritoneal bleed -s/p 2 U pRBC 10/30/19 and tranexamic acid x2 -monitor H/H trend # Accelerated HTN -no documented hx of HTN -PRN labetalol, sBP>160, -will consider PO antihypertensive (amlodipine) upon resolution of ileus and if HTN persist # VICTOR HUGO, improving -baseline Cr 0.5-0.7 -s/p IVF, caution with nephrotoxic meds # Hyperkalemia, resolved -cont to monitor # Tobacco abuse suspect underlining obstructive lung disease -started on bronchodilators -recommend outpt PFT # Malignance (valvular mass and bladder cancer) oncology Dr Prieto at [facility] # 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 # Malignant neoplasm of urinary bladder -s/p chemo completed September 2019 -s/p Robotic anterior pelvic exenteration, B/L PLND with ileal conduit 10/28/2019 -managed by primary # DVTProphylaxis: SCDs # Disposition:will follow I spent over 51% of total time providing counseling or incoordination of care: > 35 minutes discussed with nurse, I personally examined the patient and I personally reviewed chart, data, labsradiology reports 6AM-6PM please page: Electronically signed by Keven Downs DO on November 03, 2019 at 12:16 PM 6PM-6AM please page: [facility] [place] [facility] * Carol Mckeon MD - 11/03/2019 11:57 AM EDT NUTRITION/TPN NOTE: TPN started 11/01/19 at low kcals, phos has improved but despite large amounts of potassium in TPN level remains 3.2. no increase in Kcals today. Remains with NG in place. * Stefan Donato MD - 11/03/2019 8:04 AM EDT UROLOGY PROGRESS NOTE PATIENT NAME: Linda Kim DATE OF : 1955 ADMISSION DATE: 10/28/2019 5:41 AM TODAY'S DATE: 11/03/2019 Subjective No acute events overnight. Abdominal distention is stable. Small amount of flatus. No BMs. NGT with ~1700mL output. Ambulated around room yesterday. Denies fevers/chills. Started on TPN. Objective VS: BP 131/75 Pulse 88 Temp 98 F (36.7 C) (Temporal) Resp 16 Ht 5' 4.5 (1.638 m) Wt 119 lb (54 kg) SpO2 96% BMI 20.11 kg/m Vitals: 11/03/19 0602 BP: 131/75 Pulse: 88 Resp: 16 Temp: 98 F (36.7 C) SpO2: 96% I & O - 24hr: Intake/Output Summary (Last 24 hours) at 11/03/2019 0804 Last data filed at 11/03/2019 0525 Gross per 24 hour Intake 2358.17 ml Output 5710 ml Net -3351.83 ml Physical Exam: General: Neck: Resp: Abdomen: No acute distress Supple Normal effort Soft, non-tender, mildly distended, MARIA DEL CARMEN with serous output : Ileal conduit with pink stoma, some brown mucus overlying, and B/L stents/catheter extruding draining yellow urine Skin: Skin color, texture, turgor normal, no rashes or lesions Labs and Imaging Studies Labs: CBC: Recent Labs 11/01/19 0120 11/02/1920611/03/19125 WBC 36.5* 22.5* 20.9* HGB 8.1* 7.8* 8.2* HCT 24.3* 23.4* 24.5* MCV 92.1 93.8 95.8 PLT 294 328 358 BMP: Recent Labs 11/01/19 01211/02/19 0207 11/03/19 012 NA 133* 136 140 K 4.0 3.2* 3.2* CL 103 103 106 CO2 25 29 28 PHOS 3.3 3.1 4.3 BUN 37* 34* 40* CREATININE 0.89 0.64 0.59 Magnesium: Lab Results Component Value Date MG 2.2 11/03/2019 Phosphate: Lab Results Component Value Date PHOS 4.3 11/03/2019 PT/INR: No results for input(s): PROTIME, INR in the last 72 hours. U/A: Lab Results Component Value Date LEUKOCYTESUR 250 10/31/2019 WBCUA 11-25 10/31/2019 RBCUA 51-100 10/31/2019 BACTERIA Few 10/31/2019 GLUCOSEU Normal 10/31/2019 Urine Culture: Component Value Date/Time LABURIN No growth (<1,000 CFU/ml). 10/31/20192026 Imaging Studies: CT A/P without contrast 10/29 IMPRESSION: Free intraperitoneal fluid appears denser than simple ascites and is suspicious for peritoneal blood CTR: I spoke with Raquel, the patient's nurse via telephone at 10:12 AM 10/30/2019. Abdominal wall air, free intraperitoneal air and pelvic extraperitoneal air consistent with the patient's recent surgery Ileal conduit with catheter and bilateral ureteral stents. There is no hydronephrosis. Small bilateral pleural effusions and bilateral dependent atelectasis KUB 10/29 IMPRESSION: 1. Most concerning for ileus. Continued follow-up recommended to exclude obstruction, however. Assessment and Plan ASSESMENT: 64 yo F with MIBC s/p Robotic anterior pelvic exenteration, B/L PLND with ileal conduit 10/28/2019. PLAN: - Hgb stable this morning - Continue lovenox for DVT ppx - Encouraged ambulation - PT/OT recommending facility but possible home depending on progress - Entereg until +BM or 7 days. NGT placed 10/30. KUB with gas filled bowel loops. Patient endorses small flatus. No BMs - Continue to monitor output from NGT. Will proceed with clamp trial once output decreases - Hypokalemic this morning. Replace with TPN - Echo negative - SCr improving - Maintain MARIA DEL CARMEN. Possibly remove conduit catheter today - Persistent leukocytosis, heme/onc on board. Blood and urine cultures no growth. Currently on Zosyn - Appreciate medicine recommendations Stefan Donato MD Urology, PGY-2 11/03/2019 8:10 AM Pager: [phone] * Nilesh Short, OT - 11/02/2019 3:09 PM EDT Occupational Therapy Occupational Therapy Initial Assessment Date: 11/02/2019 Patient Name: Linda Kim : 1955 Date of Service: 11/02/2019 Discharge Recommendations: Home with assist PRN, Home with Home health OT Assessment Performance deficits / Impairments: Decreased functional mobility ;Decreased ADL status;Decreased strength;Decreased safe awareness;Decreased endurance;Decreased balance;Decreased high-level IADLs Assessment: Admitted s/p Robotic Anterior Pelvic Exenteration, Bilateral Pelvic Lymph Node dissection, Small Bowel Resection for Ileal Conduit, Creation with anastamosis, Ureterintestial anastamosis,Urostomy Creation, cystoscopy. Pt lives at home with son, who has developmental delay and she is primary caregiver. 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 On eval RN disconnected NG for pt to ambulate. Able to complete LBD with SBA as well and fxl transfer from chair into FWW. Pt able to ambulate in room and brady with FWW no LOB or reports of SOB, just generalized weakness post-op. Pt will likely be able to d/c home with home therapies. Prognosis: Good Decision Making: Low Complexity OT Education: OT Role;Transfer Training;Plan of Care;ADL Adaptive Strategies REQUIRES OT FOLLOW UP: Yes Safety Devices Safety Devices in place: Yes Type of devices: Call light within reach;Patient at risk for falls;Left in chair;Nurse notified Patient Diagnosis(es): There were no encounter diagnoses. has a past medical history of Cancer (HCC) and Hematuria. has a past surgical history that includes Ectopic surgery (04/1990); Bunionectomy; skin biopsy; bladder tumor excision (06/17/2019); Vulvectomy (06/17/2019); and Tunneled venous port placement. Restrictions Restrictions/Precautions Restrictions/Precautions: Fall Risk Required Braces or Orthoses?: No Position Activity Restriction Other position/activity restrictions: NGT, MARIA DEL CARMEN drain x 1 Subjective General Chart Reviewed: Yes Patient assessed for rehabilitation services?: Yes Family / Caregiver Present: No Patient Currently in Pain: Yes Vital Signs Patient Currently in Pain: Yes Social/Functional History Social/Functional History Lives With: Son(Disabled Son, Sister will stay with her upon discharge to assist with recovery.) Type of Home: House Home Layout: One level Home Access: Stairs to enter without rails Entrance Stairs - Number of Steps: 3 Bathroom Shower/Tub: Tub/Shower unit Bathroom Toilet: Standard Bathroom Accessibility: Accessible Receives Help From: Family ADL Assistance: Independent Homemaking Assistance: Independent Homemaking Responsibilities: Yes Ambulation Assistance: Independent Transfer Assistance: Independent Active Security Delivery Specialist: Yes Mode of Transportation: Car Occupation: Retired Additional Comments: Per pt. independent prior to admit. Has son that has down syndrome. Sister in law can provide assist as needed. Objective Orientation Overall Orientation Status: Within Normal Limits Balance Sitting Balance: Independent Standing Balance: Stand by assistance ADL LE Dressing: Stand by assistance Tone RUE RUE Tone: Normotonic Tone LUE LUE Tone: Normotonic Transfers Sit to stand: Stand by assistance Stand to sit: Stand by assistance LUE AROM (degrees) LUE AROM : WFL RUE AROM (degrees) RUE AROM : WFL Plan Plan Times per week: 3-5 Plan weeks: 2 Current Treatment Recommendations: Strengthening, Balance Training, Functional Mobility Training, Endurance Training, Gait Training, Pain Management, Safety Education & Training, Patient/Caregiver Education & Training, Equipment Evaluation, Education, & procurement, Self-Care / ADL, Home Management Training G-Code OutComes Score AM-[facility] Score AM-[facility] Inpatient Daily Activity Raw Score: 20 (11/02/19 1501) [facility] Inpatient ADL T-Scale Score : 42.03 (11/02/19 1501) ADL Inpatient CMS 0-100% Score: 38.32 (11/02/19 1501) ADL Inpatient CMS G-Code Modifier : CJ (11/02/19 1501) Goals Short term goals Time Frame for Short term goals: 2 weeks Short term goal 1: LBD mod indep Short term goal 2: toileting mod indep Short term goal 3: grooming at sink in FWW mod indep Short term goal 4: FWW safety no cues Therapy Time Individual Concurrent Group Co-treatment Time In 948 Time Out 1016 Minutes 27 Timed Code Treatment Minutes: 10 Minutes Nilesh Short OT Goals and/or treatment plan was established in collaboration with patient/family/other representatives. Patient's Occupational Therapy Plan of Care supervision is transferred to [facility] Re[facility] Occupational Therapist. *OT evaluation/treatment completed wearing N95, face shield and gloves* * Keven Downs DO - 11/02/2019 10:45 AM EDT [facility] Progress Note Linda Kim : 1955(64 y.o.) Date: November 02, 2019 Subjective: HPI The patient complains of tachycardia The patient feels their symptoms areimproving no events or new concerns Scheduled Meds: lidocaine 1 % injection 5 mL Intradermal Once sodium chloride flush 10 mL Intravenous 2 times per day sodium chloride flush 10 mL Intravenous 2 times per day heparin flush 250 Units Intravenous 2 times per day sodium chloride flush 10 mL Intracatheter Daily heparin flush 500 Units Intracatheter Daily enoxaparin 40 mg Subcutaneous Daily acetaminophen 1,000 mg Per NG tube Q6H metoprolol 5 mg Intravenous Q8H ipratropium 0.5 mg Nebulization Q4H WA mometasone-formoterol 2 puff Inhalation BID piperacillin-tazobactam 3.375 g Intravenous Q8H sodium chloride flush 10 mL Intravenous 2 times per day alvimopan 12 mg Oral Daily Continuous Infusions: PN-Adult 2 IN 1 Central Line (Custom) PN-Adult 2 IN 1 Central Line (Custom) 62.5 mL/hr at 11/02/19 0810 sodium chloride 30 mL/hr at 11/02/19 0809 PRN Meds:sodium chloride flush, heparin flush, LORazepam, metoprolol, sodium chloride flush, heparin flush, sodium chloride flush, hydrOXYzine, polyethylene glycol, traMADol OR traMADol, ondansetron, labetalol, promethazine, melatonin, sodium chloride flush, bisacodyl, morphine OR morphine Review of Systems Constitutional: Negative for chills and fever. HENT: Negative for rhinorrhea and sinus pain. Respiratory: Negative for cough and shortness of breath. Cardiovascular: Negative for chest pain and palpitations. Gastrointestinal: Positive for abdominal distention (improving) and abdominal pain (improving). Negative for constipation, diarrhea, nausea and vomiting. (-)BM, (+) flatus Genitourinary: Positive for pelvic pain (around surgical site ) and vaginal bleeding (improving). Musculoskeletal: Negative for arthralgias and back pain. Skin: Negative for rash. Neurological: Negative for dizziness and light-headedness. Psychiatric/Behavioral: Negative for dysphoric mood. The patient is not nervous/anxious. Interval Pertinent History: Social History Tobacco Use Smoking status: Current Every Day Smoker Packs/day: 0.50 Years: 25.00 Pack years: 12.50 Types: Cigarettes Smokeless tobacco: Never Used Substance Use Topics Alcohol use: Not Currently Objective: Patient Vitals for the past 24 hrs: BP Temp Temp src Pulse Resp SpO2 11/02/19 0811 16 94 % 11/02/19 0520 (!) 145/79 99.3 F (37.4 C) Temporal 112 16 93 % 11/02/19 0115 113/65 98.5 F (36.9 C) Temporal 104 21 92 % 11/01/19 2041 124/72 98.3 F (36.8 C) Temporal 118 20 92 % 11/01/19 1745 128/66 98.4 F (36.9 C) Temporal 109 16 94 % 11/01/19 1719 99 % 11/01/19 1707 16 96 % 11/01/19 1244 122/64 99.1 F (37.3 C) Temporal 112 18 93 % 11/01/19 1233 96 % 11/01/19 1223 90 % 11/01/19 1047 113/62 116 93 % Average, Min, and Max for last 24 hours Vitals: TEMPERATURE: Temp Av.7 F (37.1 C) Min: 98.3 F (36.8 C) Max: 99.3 F (37.4 C) RESPIRATIONS RANGE: Resp Av.6 Min: 16 Max: 21 PULSE RANGE: Pulse Av.8 Min: 104 Max: 118 BLOOD PRESSURE RANGE: Systolic (24hrs), Av , Min:113 , Max:145 ; Diastolic (24hrs), Av, Min:62, Max:79 PULSE OXIMETRY RANGE: SpO2 Av.8 % Min: 90 % Max: 99 % I/O last 3 completed shifts: In: 905 [I.V.:800; NG/GT:55; IV Piggyback:50] Out: 3343 [Urine:1650; Emesis/NG output:1500; Drains:190; Other:3] Physical Exam Vitals signs and nursing note reviewed. Constitutional: General: She is not in acute distress. Appearance: She is normal weight. She is not ill-appearing or diaphoretic. Interventions: Nasal cannula in place. Comments: NG tube intact HENT: Head: Normocephalic and atraumatic. Mouth/Throat: Mouth: Mucous membranes are not pale and not dry. Pharynx: Uvula midline. No oropharyngeal exudate. Eyes: General: No scleral icterus. Conjunctiva/sclera: Conjunctivae normal. Pupils: Pupils are equal, round, and reactive to light. Neck: Musculoskeletal: Normal range of motion and neck supple. Thyroid: No thyromegaly. Vascular: No JVD. Trachea: No tracheal deviation. Cardiovascular: Rate and Rhythm: Regular rhythm. Tachycardia present. Heart sounds: Normal heart sounds. No murmur. No friction rub. No gallop. Pulmonary: Effort: Pulmonary effort is normal. No respiratory distress. Breath sounds: Examination of the right-lower field reveals rales. Examination of the left-lower field reveals rales. Decreased breath sounds (diffuse) and rales present. No wheezing or rhonchi. Chest: Chest wall: No tenderness. Abdominal: General: Bowel sounds are normal. There is distension (improving). Palpations: Abdomen is soft. There is no mass. Tenderness: There is generalized abdominal tenderness (improving). There is no guarding or rebound. Hernia: No hernia is present. Comments: MARIA DEL CARMEN/Conduit catheter intact Musculoskeletal: Normal range of motion. General: No swelling, tenderness or deformity. Right lower leg: Edema (+1) present. Left lower leg: Edema (+1) present. Lymphadenopathy: Cervical: No cervical adenopathy. Skin: General: Skin is warm and dry. Capillary Refill: Capillary refill takes less than 2 seconds. Coloration: Skin is not pale. Findings: No erythema or rash. Neurological: General: No focal deficit present. Mental Status: She is alert and oriented to person, place, and time. Cranial Nerves: No cranial nerve deficit. Sensory: No sensory deficit. Motor: No abnormal muscle tone. Coordination: Coordination normal. Deep Tendon Reflexes: Reflexes normal. Psychiatric: Mood and Affect: Mood normal. Behavior: Behavior normal. Thought Content: Thought content normal. Lab Results Component Value Date WBC 22.5 (H) 11/02/2019 HGB 7.8 (L) 11/02/2019 HCT 23.4 (L) 11/02/2019 MCV 93.8 11/02/2019 PLT 328 11/02/2019 Lab Results Component Value Date NA 136 11/02/2019 K 3.2 11/02/2019 CL 103 11/02/2019 CO2 29 11/02/2019 BUN 34 11/02/2019 CREATININE 0.64 11/02/2019 GLUCOSE 130 11/02/2019 CALCIUM 8.0 11/02/2019 No results found for: LABA1C 10/30/2019 18:55:32 EDT Exam CR Abdomen AP Ordering Physician MD TATYANA, DAVID CARCAMO Accession Number [id number] CPT4 Codes 92430 () Reason For Exam Bloating, ?? ileus Report SINGLE VIEW ABDOMEN CLINICAL INDICATION: Bloating, ?? ileus TECHNIQUE: Single view abdomen x-ray COMPARISON: 10/28/2019 FINDINGS: There is a catheter in the right lower quadrant urostomy and bilateral ureteral stents. Surgical drain in the pelvis. Subcutaneous gas along the abdominal wall on the left compatible with recent surgery. Multiple dilated small bowel loops, with some colonic gas as well. Bowel dilation is more prominent than on the prior study. IMPRESSION: 1. Most concerning for ileus. Continued follow-up recommended to exclude obstruction, however. 10/30/2019 09:30:41 EDT Exam NM Pulmonary Perfusion w/ Vent Aerosol Ordering Physician MD FRANTZ, JOBY MIRANDA Accession Number [id number] CPT4 Codes 76721 (), A9567 () Reason For Exam tachycardia, elevated d-dimer Report VENTILATION-PERFUSION (VQ) SCAN CLINICAL INDICATION: Tachycardia, elevated d- dimer Multiple ventilation images of the lungs were obtained after the inhalation of approximately 1 millicuries of technetium-99m DTPA aerosol. Corresponding perfusion images of the lungs were then acquired after the intravenous administration of 5 millicuries of technetium-99m MAA. COMPARISON: Chest x-ray performed the day prior FINDINGS: There is a diffusely heterogeneous appearance of the ventilation images of the lungs, with deposition of aerosol within the central airways. No mismatched perfusion defects are seen on the perfusion images. IMPRESSION: Low probability study for pulmonary embolism. Heterogeneous appearance of the ventilation images with deposition of aerosol within the central airways, consistent with a component of obstructive lung disease. Exam Date/Time 10/30/2019 09:54:[address] Abdomen/Pelvis (No PO, No IV) Ordering Physician MD BRYSON, JEREMY Gates Accession Number [id number] CPT4 Codes 70636 (CT Abdomen/Pelvis (No PO, No IV)) Reason For Exam Ongoing anemia, concer for hematoma Report Clinical indication: Ongoing anemia. Concern for hematoma. History of bladder cancer. Comparison: None Radiation dose: DLP 208 mGycm Noncontrast imaging from diaphragm through the ischial tuberosities was performed with axial, coronal and sagittal images reconstructed. Images which include the lung bases show emphysematous changes in the lungs. Small bilateral pleural effusions are present with mild dependent atelectasis, right greater andriy n left. No focal inherent masses are noted in liver or spleen. Gallbladder appears mildly distended. Calcifications are noted in the pancreatic head and scattered through the body and tail. Adrenal glands are not enlarged. Kidneys contain stents bilaterally which extends through the ureters into the patient's recently constructed ileal conduit. There is also a catheter in the ileal conduit. Free intraperitoneal air is present. There is also air within the abdominal wall and subcutaneous tissues. Extraperitoneal air is present in the pelvis all related to the patient's recent surgery. There issmall to moderate amount of free fluid around liver and spleen. Fluid is present in the paracolic gutters and there is fluid in the pelvis. Fluid appears slightly more dense than simple ascites and is suspicious for bloody fluid. A surgical drain is noted in the pelvis. Bowel loops are mildly dilated with air and fluid in the ileus pattern. Aorta is atherosclerotic with no aneurysm. Vena cava is incompletely distended. There is no retroperitoneal adenopathy noted. Degenerative endplate hypertrophy is noted in the spine but there are no acute osseous abnormalities. L4-L5 and L5-S1 discs show degenerative changes. IMPRESSION: Free intraperitoneal fluid appears denser than simple ascites and is suspicious for peritoneal blood CTR: I spoke with Raquel, the patient's nurse via telephone at 10:12 AM 10/30/2019. Abdominal wall air, free intraperitoneal air and pelvic extraperitoneal air consistent with the patient's recent surgery Ileal conduit with catheter and bilateral ureteral stents. There is no hydronephrosis. TRANSTHORACIC ECHOCARDIOGRAM 10/30/2019 INDICATIONS: Tachycardia. CONCLUSIONS SUMMARY: 1. Left ventricle: The cavity size is normal. Wall thickness is normal. Systolic function is hyperdynamic by visual assessment. The estimated ejection fraction is 75%. There are no regional wall motion abnormalities. Left ventricular diastolic function parameters are normal. 2. Right ventricle: The cavity size is normal. Systolic function is normal. Right ventricular systolic pressure is within the normal range. 3. No significant valve disease. 4. Inferior vena cava: The vessel is small, appearing collapsed, consistent with low central venous pressure. The IVC collapses by greater than 50% with inspiration. Additional results of the last 24 hours have been reviewed. Assessment and Plan: Principal Problem: Malignant neoplasm of urinary bladder (HCC) Active Problems: Tachycardia Leukocytosis VICTOR HUGO (acute kidney injury) (HCC) SIRS (systemic inflammatory response syndrome) (HCC) Hypoxia Postoperative anemia due to acute blood loss Ileus (HCC) Bilateral pleural effusion Peritoneal bleeding Resolved Problems: * No resolved hospital problems. * # SIRS # Hypoxia, Tachycardia, Acute Leukocytosis, mildly elevated procal (improving) # Bilateral pleural effusion -in the setting of acute blood loss anemia and bilateral pleural effusion, negative V/Q scan and unremarkable echo -leukocytosis presumed to be reactive per hemo/onc -tachycardia of unknown chronicity, presumed to be 2/2 b/l pleural effusion and anemia -inadequate pleural fluid for thorahora on 11/01/19 -Cx NTD -monitor on tele -IS, bronchodilators, -trial of metoprolol and abx: DC vanc, cont zosyn. -PRN IV lasix for hypoxia albeit limited utility due to ongoing IVF -may consider discharging on metoprolol if tachycardia persist despite improvement of pleural effusion, anemia and adequate abx coverage # Ileus, improving -in the setting of recent surgery with peritoneal bleed on CT -judicious use of IVF due to b/l pleural effusion and hypoxia, -replete lytes PRN -TPN per primary -NPO, NGT # Postoperative anemia due to acute blood loss, # Vaginal bleeding, improving # Peritoneal bleed -s/p 2 U pRBC 10/30/19 and tranexamic acid x2 -monitor H/H trend # Accelerated HTN -no documented hx of HTN -PRN labetalol, sBP>160, -will consider PO antihypertensive (amlodipine) upon resolution of ileus and if HTN persist # VICTOR HUGO, improving -baseline Cr 0.5-0.7 -s/p IVF, caution with nephrotoxic meds # Hyperkalemia, resolved -cont to monitor # Tobacco abuse suspect underlining obstructive lung disease -started on bronchodilators -recommend outpt PFT # Malignance (valvular mass and bladder cancer) oncology Dr Prieto at [facility] # 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 # Malignant neoplasm of urinary bladder -s/p chemo completed September 2019 -s/p Robotic anterior pelvic exenteration, B/L PLND with ileal conduit 10/28/2019 -managed by primary # DVTProphylaxis: SCDs # Disposition:will follow I spent over 51% of total time providing counseling or incoordination of care: > 35 minutes discussed with nurse, I personally examined the patient and I personally reviewed chart, data, labsradiology reports 6AM-6PM please page: Electronically signed by Keven Downs DO on November 02, 2019 at 10:45 AM 6PM-6AM please page: [facility] [place] [facility] * Carol Mckeon MD - 11/02/2019 10:30 AM EDT NUTRITION/TPN NOTE: TPN started yesterday, 11/01/19 at low kcals. Both phos and mag remain low/low normal range. Pt with limited central venous access (single lumen medport), will increase KPhos in TPN today, hold on increasing toward goal kcals. * Walker Cruz DO - 11/02/2019 7:09 AM EDT UROLOGY PROGRESS NOTE PATIENT NAME: Linda Kim DATE OF : 1955 ADMISSION DATE: 10/28/2019 5:41 AM TODAY'S DATE: 11/02/2019 Subjective Patient states that she believes her abdominal distention is improved today Thinks that she did have some flatus overnight Some vaginal drainage upon getting to bedside chair this AM - approx 50-100cc per nursing Comfortable overall Some ambulation Wants something to drink PICC placed yesterday and started on TPN Objective VS: BP (!) 145/79 Pulse 112 Temp 99.3 F (37.4 C) (Temporal) Resp 16 Ht 5' 4.5 (1.638 m) Wt 119 lb (54 kg) SpO2 93% BMI 20.11 kg/m Vitals: 11/02/19 0520 BP: (!) 145/79 Pulse: 112 Resp: 16 Temp: 99.3 F (37.4 C) SpO2: 93% I & O - 24hr: Intake/Output Summary (Last 24 hours) at 11/02/2019 0709 Last data filed at 11/02/2019 0635 Gross per 24 hour Intake 905 ml Output 3343 ml Net -2438 ml Physical Exam: General: Neck: Resp: Abdomen: No acute distress Supple Normal effort Soft, non-tender, mildly distended, MARIA DEL CARMEN with scant SS output : Ileal conduit with pink stoma, some brown mucus overlying, and B/L stents/catheter extruding draining yellow urine Skin: Skin color, texture, turgor normal, no rashes or lesions Labs and Imaging Studies Labs: CBC: Recent Labs 10/31/19 0534 11/01/19 0120 11/02/19 0207 WBC 39.6* 36.5* 22.5* HGB 8.3* 8.1* 7.8* HCT 24.2* 24.3* 23.4* MCV 90.4 92.1 93.8 PLT 236 294 328 BMP: Recent Labs 10/31/19 0534 11/01/19 0120 11/02/19 0207 NA 132* 133* 136 K 4.7 4.0 3.2* CL 103 103 103 CO2 20* 25 29 PHOS 3.1 3.3 3.1 BUN 43* 37* 34* CREATININE 1.11 0.89 0.64 Magnesium: Lab Results Component Value Date MG 2.1 11/02/2019 Phosphate: Lab Results Component Value Date PHOS 3.1 11/02/2019 PT/INR: Recent Labs 10/31/19 0534 PROTIME 10.3 INR 0.9 U/A: Lab Results Component Value Date LEUKOCYTESUR 250 10/31/2019 WBCUA 11-25 10/31/2019 RBCUA 51-100 10/31/2019 BACTERIA Few 10/31/2019 GLUCOSEU Normal 10/31/2019 Urine Culture: Component Value Date/Time LABURIN No growth (<1,000 CFU/ml). 10/31/20192026 Imaging Studies: CT A/P without contrast 10/29 IMPRESSION: Free intraperitoneal fluid appears denser than simple ascites and is suspicious for peritoneal blood CTR: I spoke with Raquel, the patient's nurse via telephone at 10:12 AM 10/30/2019. Abdominal wall air, free intraperitoneal air and pelvic extraperitoneal air consistent with the patient's recent surgery Ileal conduit with catheter and bilateral ureteral stents. There is no hydronephrosis. Small bilateral pleural effusions and bilateral dependent atelectasis KUB 10/29 IMPRESSION: 1. Most concerning for ileus. Continued follow-up recommended to exclude obstruction, however. Assessment and Plan ASSESMENT: 64 yo F with MIBC s/p Robotic anterior pelvic exenteration, B/L PLND with ileal conduit 10/28/2019 PLAN: - hgb 7.8 from 8.1 - lovenox started yesterday - SCDs, IS - Encouraged ambulation - PT/OT recommending facility but possible home depending on progress - Entereg until +BM or 7 days, imaging findings concerning for ileus, will recheck KUB today. NGT placed 10/30 - continue to monitor output from NGT; output somewhat higher compared to previous 24 hours - cont TPN - echo negative - SCr stable - Maintain MARIA DEL CARMEN/Conduit catheter - Persistent leukocytosis, heme/onc on board. Blood and urine cultures no growth. Currently on Zosyn - Appreciate medicine recommendations, particularly given recent issues with hypertension, improvedthis SOLE Cruz, Urology, PGY-2 0883 * Jose Gaspar, MAURICIO - 11/02/2019 6:48 AM EDT Patient up to chair. Patient began bleeding from vaginal area and cooper started draining bloody urine. Urology aware and at bedside. * Radha Barrios, MAURICIO - 11/01/2019 1:00 PM EDT Ileal conduit 1 1/4 inch, mucosa pink, bilateral stents and red cath intact, pouching system intact, draining yellow urine. Declines pouch change today- denies itching or burning of peristomal skin. Urostomy teaching folder, supplies, and pattern at bedside. Review of urostomy care attempted-patient referred to urostomy teaching folder-to look at teaching literature when she is more alert and has more energy. Plan to follow up on Monday to reinforce urostomy care teaching. * Benny Calloway, PT - 11/01/2019 12:20 PM EDT Physical Therapy Facility/Department: [facility] TELEMETRY Initial Assessment NAME: Linda Kim : 1955 Date of Service: 11/01/2019 Discharge Recommendations: (Recommend facility based therapy but may progress to home going. ) PT Equipment Recommendations Other: tbd Assessment Body structures, Functions, Activity limitations: Decreased ADL status;Decreased safe awareness;Decreased strength;Decreased endurance;Decreased balance Assessment: Pt. present with generalized weakness and decreased activity tolerance. Impaired balance and difficulty walking. Requires assist at this time secondary risk of falling. Recommend facilitybased therapy but may progress to home going. Treatment Diagnosis: weakness Prognosis: Fair Decision Making: Low Complexity PT Education: Goals;PT Role;Plan of Care REQUIRES PT FOLLOW UP: Yes Activity Tolerance Activity Tolerance: Patient limited by fatigue;Patient limited by endurance Patient Diagnosis(es): There were no encounter diagnoses. has a past medical history of Cancer (HCC) and Hematuria. has a past surgical history that includes Ectopic surgery (04/1990); Bunionectomy; skin biopsy; bladder tumor excision (06/17/2019); Vulvectomy (06/17/2019); and Tunneled venous port placement. Restrictions Restrictions/Precautions Restrictions/Precautions: Fall Risk Required Braces or Orthoses?: No Position Activity Restriction Other position/activity restrictions: NGT, MARIA DEL CARMEN drain x 1 Vision/Hearing Vision: Within Functional Limits Hearing: Within functional limits Subjective General Chart Reviewed: Yes Patient assessed for rehabilitation services?: Yes Family / Caregiver Present: No Diagnosis: Malignant neoplasm of urinary bladder Follows Commands: Within Functional Limits General Comment Comments: Malignant neoplasm of urinary bladder, s/p robotic ant. pelvic exentration with ileal conduit ostomy, vaginal bleeding Subjective Subjective: Pt. laying in bed, agree with PT treatment. Pt expressed anxiety. Pain Screening Patient Currently in Pain: Yes Pain Assessment Pain Assessment: 0-10 Pain Level: 3 Pain Type: Surgical pain Pain Location: Abdomen Functional Pain Assessment: Prevents or interferes some active activities and ADLs Non-Pharmaceutical Pain Intervention(s): Ambulation/Increased Activity;Repositioned Vital Signs Patient Currently in Pain: Yes Orientation Orientation Overall Orientation Status: Within Normal Limits Social/Functional History Social/Functional History Lives With: Son(Disabled Son, Sister will stay with her upon discharge to assist with recovery.) Type of Home: House Home Layout: One level Home Access: Stairs to enter without rails Entrance Stairs - Number of Steps: 3 Bathroom Shower/Tub: Tub/Shower unit Bathroom Toilet: Standard Bathroom Accessibility: Accessible Receives Help From: Family ADL Assistance: Independent Homemaking Assistance: Independent Homemaking Responsibilities: Yes Ambulation Assistance: Independent Transfer Assistance: Independent Active Security Delivery Specialist: Yes Mode of Transportation: Car Occupation: Retired Additional Comments: Per pt. independent prior to admit. Has son that has down syndrome. Sister in law can provide assist as needed. Cognition Cognition Overall Cognitive Status: WNL Objective Observation/Palpation Posture: Fair Observation: NGT, MARIA DEL CARMEN drain, noted large amount of bloody discharge on the chaulk pad. AROM RLE (degrees) RLE AROM: WFL AROM LLE (degrees) LLE AROM : WFL Strength RLE Comment: 4-/5 Strength LLE Comment: 4-/5 Tone RLE RLE Tone: Normotonic Tone LLE LLE Tone: Normotonic Motor Control Gross Motor?: WNL Sensation Overall Sensation Status: WNL Bed mobility Supine to Sit: Minimal assistance Scooting: Minimal assistance Transfers Sit to Stand: Minimal Assistance Stand to sit: Minimal Assistance Bed to Chair: Minimal assistance Stand Pivot Transfers: Minimal Assistance Ambulation Ambulation?: Yes More Ambulation?: No Ambulation 1 Surface: level tile Device: Rolling Walker Assistance: Minimal assistance Quality of Gait: flexed posture Gait Deviations: Slow Melany;Decreased step length;Decreased step height Distance: 5 ft Stairs/Curb Stairs?: No Balance Posture: Fair Sitting - Static: Fair Sitting - Dynamic: Fair Standing - Static: Fair;- Standing - Dynamic: Fair;- Comments: Sitting at EOB, performed weight shifting and functional reaching. Pt anxious, needing some re-assurance. Plan Plan Times per week: 5x/wk Current Treatment Recommendations: Strengthening, Transfer Training, Balance Training, Gait Training, Functional Mobility Training, Stair training Safety Devices Type of devices: Call light within reach, Left in chair, Nurse notified(N95 and goggles) G-Code OutComes Score AM-PAC Score AM-PAC Inpatient Mobility Raw Score : 11 (11/01/19 1029) AM-PAC Inpatient T-Scale Score : 33.86 (11/01/19 1029) Mobility Inpatient CMS 0-100% Score: 72.57 (11/01/19 1029) Mobility Inpatient CMS G-Code Modifier : CL (11/01/19 102) Goals Short term goals Time Frame for Short term goals: 2 weeks Short term goal 1: bed mobility modified independent Short term goal 2: transfers modified independent Short term goal 3: ambulate 150 ft with device, supervision Short term goal 4: negotiate 3 steps with rail, supervision Patient Goals Patient goals : To go home. Patient s Physical Therapy Plan of Care supervision is transferred to [facility] Rehab Department Physical Therapist. Therapy Time Individual Concurrent Group Co-treatment Time In 0845 Time Out 0910 Minutes 25 Timed Code Treatment Minutes: 8 Minutes(FA) Benny Calloway PT,GCS * Estela Bernard RD, LD - 11/01/2019 11:42 AM EDT Nutrition Assessment Type and Reason for Visit: Reassess Nutrition Recommendations: 1. Recommend for Initial TPN considering a possible allergy to egg yolk which is in Intralipid: 100g protein (400 kcals), 600 dextrose kcals, no lipid kcals = 1000 kcals = 1.8g protein/kg + 18kcals/kg IBW. 2. Pharmacist to call back with info re: whether SMOFLIPID also contains egg yolk - this could be utilized if not - with approval via [employer] DELEON. 3. Montior nutritional status. Nutrition Assessment: Pt with PMH that includes (vulvular CA and bladder CA <Oncologist Dr Prieto in [place]>, s/p partial vulvectomy May 2019; malignant neoplasm of urinary bladder s/p chemo completed September 2019. Pt is s/p robotic anterior pelvic exenteration with ileal conduit ostomy10/28/19. Pt with post-op anemia, vaginal bleed/peritoneal bleed, SIRS (Hypoxia, Tachycardia, Acute Leukocytosis, mildly elevated procal). Pt with NG to LIS, KUB 10/31/19 continues to suggest ileus. TPNconsult this date 11/01/19. *Pt is N/A x 2 - not in room and unable to interview. Malnutrition Assessment: Malnutrition Status: At risk for malnutrition Context: Acute illness or injury Findings of the 6 clinical characteristics of malnutrition (Minimum of 2 out of 6 clinical characteristics is required to make the diagnosis of moderate or severe Protein Calorie Malnutrition based on AND/ASPEN Guidelines): 1. Energy Intake-Less than or equal to 50% of estimated energy requirement, (4 days) 2. Weight Loss-Unable to assess, 3. Fat Loss-No significant subcutaneous fat loss, 4. Muscle Loss-No significant muscle mass loss, 5. Fluid Accumulation-No significant fluid accumulation, 6. Log Cutter Strength-Not measured Nutrition Risk Level: High Nutrient Needs: Estimated Daily Total Kcal: 8119-0633 (25-30) Estimated Daily Protein (g): 1.6-1.8g protein/kg IBW (55.4kgs) = 89-99g protein/day Estimated Daily Total Fluid (ml/day): per MD Nutrition Diagnosis: Problem: Inadequate energy intake Etiology: related to (recent surgery) ? Signs and symptoms: as evidenced by NPO status due to medical condition Objective Information: Nutrition-Focused Physical Findings: Hypoactive BS, abd distended, +tachycardia, ileoconduit, MARIA DEL CARMEN, NG to LIS, Paul 19. Wound Type: Surgical Wound Current Nutrition Therapies: Oral Diet Orders: NPO Anthropometric Measures: Ht: 5' 4.5 (163.8 cm) Current Body Wt: (no new weight) Admission Body Wt: 119 lb (54 kg)(no method indicated) % Weight Change: , EPIC review: (10/21/19) 119#; (07/02/19) 113# [place] Body Wt: 122 lb (55.3 kg), % [place] Body Adjusted Body Wt: , body weight adjusted for BMI Classification: BMI 18.5 - 24.9 Normal Weight BMP: Recent Labs 10/30/19 0322 10/31/19 0534 11/01/19 0120 NA 130* 132* 133* K 5.4* 4.7 4.0 CL 104 103 103 CO2 19* 20* 25 BUN 48* 43* 37* CREATININE 2.40* 1.11 0.89 GLUCOSE 128* 115* 101* CALCIUM 7.7* 7.8* 8.1* MG -- 2.3 2.2 PHOS -- 3.1 -- HEPATIC: Recent Labs 10/30/19 0322 AST 37 ALT 17 BILITOT 0.1* ALKPHOS 85 Nutrition Interventions: Continue NPO, Start Parenteral Nutrition Continued Inpatient Monitoring Nutrition Evaluation: Evaluation: Goals set Goals: Pt receives estimated energy/protein requirements via TPN. Monitoring: PN Intake, PN Tolerance, Skin Integrity, Weight, Pertinent Labs, Monitor Bowel Function, Monitor Hemodynamic Status Contact Number: Pager #[phone] * Ev Lopez RN - 11/01/2019 10:31 AM EDT Patient arrived to Ultrasound department for thoracentesis. History, medications and allergies reviewed. Dr. Ceron in to discuss procedure and informed consent obtained. Patient assisted to sitting on the edge of the bed. Right upper back scanned. No procedure done due lack of fluid per Dr. Ceron. Report called to H6 RN.Patient returned to unit via cart. * Estela Bernard RD, LD - 11/01/2019 9:50 AM EDT Nutrition Assessment Type and Reason for Visit: Reassess Nutrition Recommendations: 1. NOTED that pt has an allergy to Egg/Egg derived products, RD confirmed with TPN pharmacist that we do have egg yolk in the Intralipid used for TPN at [facility]. 2. Pt is not in room currently - will interview and find out if a true allergy, may need to provideTPN without Lipids. 3. Monitor nutritional status. Nutrition Assessment: Pt with PMH that includes (vulvular CA and bladder CA <Oncologist Dr Prieto in [place]>, s/p partial vulvectomy May 2019; malignant neoplasm of urinary bladder s/p chemo completed September 2019. Pt is s/p robotic anterior pelvic exenteration with ileal conduit ostomy10/28/19. Pt with post-op anemia, vaginal bleed/peritoneal bleed, SIRS (Hypoxia, Tachycardia, Acute Leukocytosis, mildly elevated procal). Pt with NG to LIS, KUB 10/31/19 continues to suggest ileus. TPNconsult this date 11/01/19. Malnutrition Assessment: Malnutrition Status: At risk for malnutrition Context: Acute illness or injury Findings of the 6 clinical characteristics of malnutrition (Minimum of 2 out of 6 clinical characteristics is required to make the diagnosis of moderate or severe Protein Calorie Malnutrition based on AND/ASPEN Guidelines): 1. Energy Intake-Less than or equal to 50% of estimated energy requirement, (4 days) 2. Weight Loss-Unable to assess, 3. Fat Loss-No significant subcutaneous fat loss, 4. Muscle Loss-No significant muscle mass loss, 5. Fluid Accumulation-No significant fluid accumulation, 6. Log Cutter Strength-Not measured Nutrition Risk Level: High Nutrient Needs: Estimated Daily Total Kcal: 6581-8673 (25-30) Estimated Daily Protein (g): 1.6-1.8g protein/kg IBW (55.4kgs) = 89-99g protein/day Estimated Daily Total Fluid (ml/day): per MD Nutrition Diagnosis: Problem: Inadequate energy intake Etiology: related to (recent surgery) ? Signs and symptoms: as evidenced by NPO status due to medical condition Objective Information: Nutrition-Focused Physical Findings: Hypoactive BS, abd distended, +tachycardia, ileoconduit, MARIA DEL CARMEN, NG to LIS, Paul 19. Wound Type: Surgical Wound Current Nutrition Therapies: Oral Diet Orders: NPO Anthropometric Measures: Ht: 5' 4.5 (163.8 cm) Current Body Wt: (no new weight) Admission Body Wt: 119 lb (54 kg)(no method indicated) Usual Body Wt: % Weight Change: , EPIC review: (10/21/19) 119#; (07/02/19) 113# [place] Body Wt: 122 lb (55.3 kg), % [place] Body Adjusted Body Wt: , body weight adjusted for BMI Classification: BMI 18.5 - 24.9 Normal Weight BMP: Recent Labs 10/30/19 0322 10/31/19 0534 11/01/19 0120 NA 130* 132* 133* K 5.4* 4.7 4.0 CL 104 103 103 CO2 19* 20* 25 BUN 48* 43* 37* CREATININE 2.40* 1.11 0.89 GLUCOSE 128* 115* 101* CALCIUM 7.7* 7.8* 8.1* MG -- 2.3 2.2 PHOS -- 3.1 -- Mg - WNL. Phos - WNL - 10/31/19 value HEPATIC: Recent Labs 10/30/19 0322 AST 37 ALT 17 BILITOT 0.1* ALKPHOS 85 Nutrition Interventions: Continue NPO, Start Parenteral Nutrition Continued Inpatient Monitoring Nutrition Evaluation: Evaluation: Goals set Goals: Pt receives estimated energy/protein requirements via TPN. Monitoring: PN Intake, PN Tolerance, Skin Integrity, Weight, Pertinent Labs, Monitor Bowel Function, Monitor Hemodynamic Status Contact Number: Pager #[phone] * Kylah Wheeler [facility] - 11/01/2019 9:32 AM EDT Vancomycin therapy has been discontinued by Dr. Keven Downs on 11/01. Thank you for the consult. Pharmacy signing off for vancomycin dosing. Kylah Wheeler PharmD Date: 11/01/19 Time: 9:33 AM * Kylah Wheeler [facility] - 11/01/2019 9:24 AM EDT Pharmacy Managed Vancomycin Dosing Service Progress Note Date: 11/01/19 Room:6109/114469 Patient Name: Linda Kim Allergies: Eggs or egg-derived products Age: 64 y.o. Sex: female Ht: Height: 5' 4.5 (163.8 cm) TBW: Weight: 119 lb (54 kg) BMI: Body mass index is 20.11 kg/m . DW: 54 kg Calculated CrCl: 54 mL/min Lab Results Component Value Date CREATININE 0.89 11/01/2019 CREATININE 1.11 10/31/2019 CREATININE 2.40 (H) 10/30/2019 BUN 37 (H) 11/01/2019 BUN 43 (H) 10/31/2019 BUN 48 (H) 10/30/2019 WBC 36.5 (HH) 11/01/2019 WBC 39.6 (HH) 10/31/2019 WBC 42.4 (HH) 10/30/2019 Infectious Diagnosis: Leukocytosis (goal trough = 15 - 20 mcg/mL) Antimicrobials: Recent Abx Admin piperacillin-tazobactam (ZOSYN) 3.375 g in dextrose 50 mL IVPB extended infusion (premix) (g) 3.375g New Bag 11/01/19 0919 3.375 g New Bag 0129 3.375 g New Bag 10/31/19 1818 3.375 g New Bag 1007 vancomycin (VANCOCIN) 750 mg in dextrose 5 % 250 mL IVPB (mg) 750 mg New Bag 10/31/19 1154 Assessment/Plan: Renal function continues to improve. Vanc trough = 6.3 (drawn 12 hrs earlier than ordered). Will increase Vancomycin to 750 mg (15 mg/kg) every 12 hrs. Will recheck trough 30 mins prior to 4th dose due 11/01 @ 2200 and adjust dose accordingly. Will monitor renal function closely. Please page/call with questions. Date: 11/01/19 Time: 9:24 AM Name: Kylah Wheeler PharmD Pager: [phone] [phone] * Keven Downs DO - 11/01/2019 8:19 AM EDT [facility] Progress Note Linda Kim : 1955(64 y.o.) Date: November 01, 2019 Subjective: HPI The patient complains of tachycardia The patient feels their symptoms areunchanged no events or new concerns Scheduled Meds: vancomycin 15 mg/kg Intravenous Q24H ipratropium 0.5 mg Nebulization Q4H WA mometasone-formoterol 2 puff Inhalation BID piperacillin-tazobactam 3.375 g Intravenous Q8H sodium chloride flush 10 mL Intravenous 2 times per day alvimopan 12 mg Oral Daily acetaminophen 1,000 mg Oral Q6H magnesium oxide 400 mg Oral Daily Continuous Infusions: lactated ringers 75 mL/hr at 10/31/19 0918 PRN Meds:LORazepam, dilTIAZem, ondansetron, labetalol, promethazine, perflutren lipid microspheres,sodium chloride flush, hydrOXYzine, melatonin, sodium chloride flush, polyethylene glycol, bisacodyl, traMADol OR traMADol, morphine OR morphine Review of Systems Constitutional: Negative for chills and fever. HENT: Negative for rhinorrhea and sinus pain. Respiratory: Negative for cough and shortness of breath. Cardiovascular: Negative for chest pain and palpitations. Gastrointestinal: Positive for abdominal distention (improving) and abdominal pain (improving). Negative for constipation, diarrhea, nausea and vomiting. (-)BM, (+) min flatus Genitourinary: Positive for pelvic pain (around surgical site ) and vaginal bleeding (improving). Musculoskeletal: Negative for arthralgias and back pain. Skin: Negative for rash. Neurological: Negative for dizziness and light-headedness. Psychiatric/Behavioral: Negative for dysphoric mood. The patient is not nervous/anxious. Interval Pertinent History: Social History Tobacco Use Smoking status: Current Every Day Smoker Packs/day: 0.50 Years: 25.00 Pack years: 12.50 Types: Cigarettes Smokeless tobacco: Never Used Substance Use Topics Alcohol use: Not Currently Objective: Patient Vitals for the past 24 hrs: BP Temp Temp src Pulse Resp SpO2 Height 11/01/19 0551 136/73 99.6 F (37.6 C) Temporal 119 18 91 % 11/01/19 0128 123/64 99 F (37.2 C) Temporal 111 18 91 % 10/31/19 2117 133/74 97.6 F (36.4 C) Temporal 126 20 91 % 10/31/19 1647 (!) 158/82 98.2 F (36.8 C) Temporal 112 18 95 % 10/31/19 1341 5' 4.5 (1.638 m) 10/31/19 1051 (!) 164/94 99.8 F (37.7 C) Temporal 120 16 90 % 10/31/19 1003 (!) 166/93 98.5 F (36.9 C) Temporal 116 18 95 % 10/31/19 0859 97 % Average, Min, and Max for last 24 hours Vitals: TEMPERATURE: Temp Av.8 F (37.1 C) Min: 97.6 F (36.4 C) Max: 99.8 F (37.7 C) RESPIRATIONS RANGE: Resp Av Min: 16 Max: 20 PULSE RANGE: Pulse Av.3 Min: 111 Max: 126 BLOOD PRESSURE RANGE: Systolic (24hrs), Av , Min:123 , Max:166 ; Diastolic (24hrs), Av, Min:64, Max:94 PULSE OXIMETRY RANGE: SpO2 Av.9 % Min: 90 % Max: 97 % I/O last 3 completed shifts: In: - Out: 2550 [Urine:1225; Emesis/NG output:1300; Drains:25] Physical Exam Vitals signs and nursing note reviewed. Constitutional: General: She is not in acute distress. Appearance: She is normal weight. She is not ill-appearing or diaphoretic. Interventions: Nasal cannula in place. Comments: NG tube intact HENT: Head: Normocephalic and atraumatic. Mouth/Throat: Mouth: Mucous membranes are not pale and not dry. Pharynx: Uvula midline. No oropharyngeal exudate. Eyes: General: No scleral icterus. Conjunctiva/sclera: Conjunctivae normal. Pupils: Pupils are equal, round, and reactive to light. Neck: Musculoskeletal: Normal range of motion and neck supple. Thyroid: No thyromegaly. Vascular: No JVD. Trachea: No tracheal deviation. Cardiovascular: Rate and Rhythm: Regular rhythm. Tachycardia present. Heart sounds: Normal heart sounds. No murmur. No friction rub. No gallop. Pulmonary: Effort: Pulmonary effort is normal. No respiratory distress. Breath sounds: Examination of the right-lower field reveals rales. Examination of the left-lower field reveals rales. Decreased breath sounds (diffuse) and rales present. No wheezing or rhonchi. Chest: Chest wall: No tenderness. Abdominal: General: Bowel sounds are normal. There is distension. Palpations: Abdomen is soft. There is no mass. Tenderness: There is generalized abdominal tenderness. There is no guarding or rebound. Hernia: No hernia is present. Comments: MARIA DEL CARMEN/Conduit catheter intact Musculoskeletal: Normal range of motion. General: No swelling, tenderness or deformity. Right lower leg: Edema (+1) present. Left lower leg: Edema (+1) present. Lymphadenopathy: Cervical: No cervical adenopathy. Skin: General: Skin is warm and dry. Capillary Refill: Capillary refill takes less than 2 seconds. Coloration: Skin is not pale. Findings: No erythema or rash. Neurological: General: No focal deficit present. Mental Status: She is alert and oriented to person, place, and time. Cranial Nerves: No cranial nerve deficit. Sensory: No sensory deficit. Motor: No abnormal muscle tone. Coordination: Coordination normal. Deep Tendon Reflexes: Reflexes normal. Psychiatric: Mood and Affect: Mood normal. Behavior: Behavior normal. Thought Content: Thought content normal. Lab Results Component Value Date WBC 36.5 (HH) 11/01/2019 HGB 8.1 (L) 11/01/2019 HCT 24.3 (L) 11/01/2019 MCV 92.1 11/01/2019 PLT 294 11/01/2019 Lab Results Component Value Date NA 133 11/01/2019 K 4.0 11/01/2019 CL 103 11/01/2019 CO2 25 11/01/2019 BUN 37 11/01/2019 CREATININE 0.89 11/01/2019 GLUCOSE 101 11/01/2019 CALCIUM 8.1 11/01/2019 No results found for: LABA1C 10/30/2019 18:55:32 EDT Exam CR Abdomen AP Ordering Physician MD TATYANA, DAVID CARCAMO Accession Number [id number] CPT4 Codes 09436 () Reason For Exam Bloating, ?? ileus Report SINGLE VIEW ABDOMEN CLINICAL INDICATION: Bloating, ?? ileus TECHNIQUE: Single view abdomen x-ray COMPARISON: 10/28/2019 FINDINGS: There is a catheter in the right lower quadrant urostomy and bilateral ureteral stents. Surgical drain in the pelvis. Subcutaneous gas along the abdominal wall on the left compatible with recent surgery. Multiple dilated small bowel loops, with some colonic gas as well. Bowel dilation is more prominent than on the prior study. IMPRESSION: 1. Most concerning for ileus. Continued follow-up recommended to exclude obstruction, however. 10/30/2019 09:30:41 EDT Exam NM Pulmonary Perfusion w/ Vent Aerosol Ordering Physician MD FRANTZ JOBY MIRANDA Accession Number [id number] CPT4 Codes 46882 (), A9567 () Reason For Exam tachycardia, elevated d-dimer Report VENTILATION-PERFUSION (VQ) SCAN CLINICAL INDICATION: Tachycardia, elevated d- dimer Multiple ventilation images of the lungs were obtained after the inhalation of approximately 1 millicuries of technetium-99m DTPA aerosol. Corresponding perfusion images of the lungs were then acquired after the intravenous administration of 5 millicuries of technetium-99m MAA. COMPARISON: Chest x-ray performed the day prior FINDINGS: There is a diffusely heterogeneous appearance of the ventilation images of the lungs, with deposition of aerosol within the central airways. No mismatched perfusion defects are seen on the perfusion images. IMPRESSION: Low probability study for pulmonary embolism. Heterogeneous appearance of the ventilation images with deposition of aerosol within the central airways, consistent with a component of obstructive lung disease. Exam Date/Time 10/30/2019 09:54:[address] Abdomen/Pelvis (No PO, No IV) Ordering Physician MD QUEEN MARWAN M. Accession Number [id number] CPT4 Codes 24103 (CT Abdomen/Pelvis (No PO, No IV)) Reason For Exam Ongoing anemia, concer for hematoma Report Clinical indication: Ongoing anemia. Concern for hematoma. History of bladder cancer. Comparison: None Radiation dose: DLP 208 mGycm Noncontrast imaging from diaphragm through the ischial tuberosities was performed with axial, coronal and sagittal images reconstructed. Images which include the lung bases show emphysematous changes in the lungs. Small bilateral pleural effusions are present with mild dependent atelectasis, right greater andriy n left. No focal inherent masses are noted in liver or spleen. Gallbladder appears mildly distended. Calcifications are noted in the pancreatic head and scattered through the body and tail. Adrenal glands are not enlarged. Kidneys contain stents bilaterally which extends through the ureters into the patient's recently constructed ileal conduit. There is also a catheter in the ileal conduit. Free intraperitoneal air is present. There is also air within the abdominal wall and subcutaneous tissues. Extraperitoneal air is present in the pelvis all related to the patient's recent surgery. There issmall to moderate amount of free fluid around liver and spleen. Fluid is present in the paracolic gutters and there is fluid in the pelvis. Fluid appears slightly more dense than simple ascites and is suspicious for bloody fluid. A surgical drain is noted in the pelvis. Bowel loops are mildly dilated with air and fluid in the ileus pattern. Aorta is atherosclerotic with no aneurysm. Vena cava is incompletely distended. There is no retroperitoneal adenopathy noted. Degenerative endplate hypertrophy is noted in the spine but there are no acute osseous abnormalities. L4-L5 and L5-S1 discs show degenerative changes. IMPRESSION: Free intraperitoneal fluid appears denser than simple ascites and is suspicious for peritoneal blood CTR: I spoke with Raquel, the patient's nurse via telephone at 10:12 AM 10/30/2019. Abdominal wall air, free intraperitoneal air and pelvic extraperitoneal air consistent with the patient's recent surgery Ileal conduit with catheter and bilateral ureteral stents. There is no hydronephrosis. TRANSTHORACIC ECHOCARDIOGRAM 10/30/2019 INDICATIONS: Tachycardia. CONCLUSIONS SUMMARY: 1. Left ventricle: The cavity size is normal. Wall thickness is normal. Systolic function is hyperdynamic by visual assessment. The estimated ejection fraction is 75%. There are no regional wall motion abnormalities. Left ventricular diastolic function parameters are normal. 2. Right ventricle: The cavity size is normal. Systolic function is normal. Right ventricular systolic pressure is within the normal range. 3. No significant valve disease. 4. Inferior vena cava: The vessel is small, appearing collapsed, consistent with low central venous pressure. The IVC collapses by greater than 50% with inspiration. Additional results of the last 24 hours have been reviewed. Assessment and Plan: Principal Problem: Malignant neoplasm of urinary bladder (HCC) Active Problems: Tachycardia Leukocytosis VICTOR HUGO (acute kidney injury) (HCC) SIRS (systemic inflammatory response syndrome) (HCC) Hypoxia Postoperative anemia due to acute blood loss Ileus (HCC) Bilateral pleural effusion Peritoneal bleeding Resolved Problems: * No resolved hospital problems. * # SIRS # Hypoxia, Tachycardia, Acute Leukocytosis, mildly elevated procal # Bilateral pleural effusion -in the setting of acute blood loss anemia and bilateral pleural effusion and negative V/Q scan -leukocytosis presumed to be reactive per hemo/onc -r/o infectious etiology, Cx NTD -unremarkable echo, monitor on tele -heparin gtt DC, decreased IVF rate -IS, bronchodilators, trial of abx: DC vanc, but cont, zosyn. Repeat procal -PRN IV lasix for hypoxia albeit limited utility due to ongoing IVF -R. thora on 10/31 due to persistent hypoxia # Ileus -in the setting of recent surgery with peritoneal bleed on CT -judicious use of IVF due to b/l pleural effusion and hypoxia, -replete lytes PRN -TPN ordered per primary -NPO, NG, consider gen surg consult if no improvement # Postoperative anemia due to acute blood loss, improving # Vaginal bleeding # Peritoneal bleed -s/p 2 U pRBC 10/30/19 and tranexamic acid x2 -monitor H/H trend -provided and quantify sanitary pad # Accelerated HTN -no documented hx of HTN -PRN labetalol, sBP>160, -will consider PO antihypertensive (amlodipine) upon resolution of ileus and if HTN persist # VICTOR HUGO, improving -baseline Cr 0.5-0.7 -IVF, caution with nephrotoxic meds # Hyperkalemia, resolved -cont to monitor # Tobacco abuse suspect underlining obstructive lung disease -started on bronchodilators -recommend outpt PFT # Malignance (valvular mass and bladder cancer) oncology Dr Prieto at [facility] # 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 # Malignant neoplasm of urinary bladder -s/p chemo completed September 2019 -s/p Robotic anterior pelvic exenteration, B/L PLND with ileal conduit 10/28/2019 -managed by primary # DVTProphylaxis: SCDs # Disposition:will follow I spent over 51% of total time providing counseling or incoordination of care: > 35 minutes discussed with nurse, I personally examined the patient and I personally reviewed chart, data, labsradiology reports 6AM-6PM please page: Electronically signed by Keven Downs DO on November 01, 2019 at 8:19 AM 6PM-6AM please page: [facility] [place] [facility] * Jeremy Queen MD - 11/01/2019 7:33 AM EDT UROLOGY PROGRESS NOTE PATIENT NAME: Linda L Julio DATE OF : 1955 ADMISSION DATE: 10/28/2019 5:41 AM TODAY'S DATE: 11/01/2019 Subjective Increased abdominal distention yesterday with nausea/vomiting NGT placed Currently feels better No nausea/vomiting No flatus/BM Has not ambulated Objective VS: BP 136/73 Pulse 119 Temp 99.6 F (37.6 C) (Temporal) Resp 18 Ht 5' 4.5 (1.638 m) Wt 119 lb (54 kg) SpO2 91% BMI 20.11 kg/m Vitals: 11/01/19 0551 BP: 136/73 Pulse: 119 Resp: 18 Temp: 99.6 F (37.6 C) SpO2: 91% I & O - 24hr: Intake/Output Summary (Last 24 hours) at 11/01/2019 0733 Last data filed at 11/01/2019 0603 Gross per 24 hour Intake Output 2550 ml Net -2550 ml Physical Exam: General: Neck: Resp: Abdomen: No acute distress Supple Normal effort Soft, non-tender, mildly distended, MARIA DEL CARMEN with scant SS output : Ileal conduit with pink stoma, some brown mucus overlying, and B/L stents/catheter extruding draining yellow urine Skin: Skin color, texture, turgor normal, no rashes or lesions Labs and Imaging Studies Labs: CBC: Recent Labs 10/30/1932110/30/19235510/31/19 0534 11/01/19 0120 WBC 42.4* -- -- 39.6* 36.5* HGB 6.6* < > 8.3* 8.3* 8.1* HCT 19.8* < > 24.3* 24.2* 24.3* MCV 94.4 -- -- 90.4 92.1 PLT 257 -- -- 236 294 < > = values in this interval not displayed. BMP: Recent Labs 10/30/19 03210/31/19 0534 11/01/19 0120 NA 130* 132* 133* K 5.4* 4.7 4.0 CL 104 103 103 CO2 19* 20* 25 PHOS -- 3.1 -- BUN 48* 43* 37* CREATININE 2.40* 1.11 0.89 Magnesium: Lab Results Component Value Date MG 2.2 11/01/2019 Phosphate: Lab Results Component Value Date PHOS 3.1 10/31/2019 PT/INR: Recent Labs 10/31/19 0534 PROTIME 10.3 INR 0.9 U/A: Lab Results Component Value Date LEUKOCYTESUR 250 10/31/2019 WBCUA 11-25 10/31/2019 RBCUA 51-100 10/31/2019 BACTERIA Few 10/31/2019 GLUCOSEU Normal 10/31/2019 Urine Culture: No results found for: LABURIN Imaging Studies: CT A/P without contrast 10/29 IMPRESSION: Free intraperitoneal fluid appears denser than simple ascites and is suspicious for peritoneal blood CTR: I spoke with Raquel, the patient's nurse via telephone at 10:12 AM 10/30/2019. Abdominal wall air, free intraperitoneal air and pelvic extraperitoneal air consistent with the patient's recent surgery Ileal conduit with catheter and bilateral ureteral stents. There is no hydronephrosis. Small bilateral pleural effusions and bilateral dependent atelectasis KUB 10/29 IMPRESSION: 1. Most concerning for ileus. Continued follow-up recommended to exclude obstruction, however. Assessment and Plan ASSESMENT: 64 yo F with MIBC s/p Robotic anterior pelvic exenteration, B/L PLND with ileal conduit 10/28/2019 PLAN: - Lovenox held yesterday 2/2 anemia, improved today. Hgb 8.1 (8.3) - SCDs, IS - Encouraged ambulation - Possibly restart Heparin/Lovenox - PT/OT consult pending - Entereg until +BM or 7 days, imaging findings concerning for ileus, will likely recheck KUB today. NGT placed yesterday - NPO, will order TPN per nutrition recommendations given lack of PO intake with possibility of prolonged bowel rest - SCr improved - Maintain MARIA DEL CARMEN/Conduit catheter - Persistent leukocytosis, heme/onc on board. Blood cultures no growth at one day, urine culture pending. Currently on Vancomycin/Zosyn - Appreciate medicine recommendations, particularly given recent issues with hypertension, improvedthis SOLE Queen, PGY-4 11/01/2019 7:33 AM For questions/concerns please page liquefaction supervisor Urology resident * Jose Gaspar RN - 11/01/2019 1:52 AM EDT Subichin notified WBC 36.5 * Jeremy Queen MD - 10/31/2019 3:27 PM EDT Patient assessed on PM rounds. Persistent abdominal distention throughout the day in addition to episodes of emesis refractory to zofran. Vaginal bleeding improved. Repeat KUB ordered today demonstrates persistent bowel distention c/w ileus. Given above will order NGT. D/w Dr. Huma Queen, PGY-4 10/31/2019 3:29 PM For questions/concerns please page liquefaction supervisor Urology resident * Beatrice Soriano, MS, RD, LD - 10/31/2019 2:29 PM EDT Nutrition Assessment Type and Reason for Visit: Initial(DT referral for NPO x3 days) Nutrition Recommendations: 1. Patient has been without adequate nutrition since admission (x4 days). Suggest begin nutrition as feasible. 2. If able to begin po diet, suggest clear liquid with goal of General 3. Monitor need for oral nutritional supplement if able to begin po diet 4. If extended bowel rest indicated (>7 days) suggest begin TPN 5. If TPN indicated, recommend goal 100 grams protein (400 kcal); 415 lipid kcal; 575 dextrose kcal= 1390 kcal (25 kcal/1.8 grams protein/kg/IBW <55.5 kg>) 6. Suggest obtain current weight if able 7. RD continue to monitor overall nutritional status and follow up weekly Nutrition Assessment: Patient POD #3 s/p robotic anterior pelvic exenteration with ileal conduit ostomy 10/28/2019. Patient with history of Valvular mass s/p partial vulvectomy Jun 10 with high grade squamous intraepithelial lesion; Malignant neoplasm of urinary bladder s/p chemo completed September 2019. Patient still NPO, 10/29 KUB >>Most concerning for ileus. Patient sleeping soundly holding green emesis bag during RD visit. Did not disturb patient. Malnutrition Assessment: Malnutrition Status: At risk for malnutrition Context: Acute illness or injury Findings of the 6 clinical characteristics of malnutrition (Minimum of 2 out of 6 clinical characteristics is required to make the diagnosis of moderate or severe Protein Calorie Malnutrition based on AND/ASPEN Guidelines): 1. Energy Intake-Less than or equal to 50% of estimated energy requirement, (4 days) 2. Weight Loss-Unable to assess, 3. Fat Loss-No significant subcutaneous fat loss, 4. Muscle Loss-No significant muscle mass loss, 5. Fluid Accumulation-No significant fluid accumulation, 6. Log Cutter Strength-Not measured Nutrition Risk Level: High Nutrient Needs: Estimated Daily Total Kcal: 2329-4464 (25-30) Estimated Daily Protein (g): 61-72 (1.1-1.3) Estimated Daily Total Fluid (ml/day): per MD Nutrition Diagnosis: Problem: Inadequate energy intake Etiology: related to (recent surgery) ? Signs and symptoms: as evidenced by NPO status due to medical condition Objective Information: Nutrition-Focused Physical Findings: +bowel sounds; +distended/taut abdomen; - I&O; Paul 20; MARIA DEL CARMEN and ileoconduit; (-)flatus/BM, (+)belching Wound Type: Surgical Wound Current Nutrition Therapies: Oral Diet Orders: NPO Oral Diet intake: NPO Oral Nutrition Supplement (ONS) Orders: None ONS intake: NPO Anthropometric Measures: Ht: 5' 4.5 (163.8 cm) Current Body Wt: none Admission Body Wt: 119 lb (54 kg)(no method indicated) % Weight Change: , EPIC review: (10/21/19) 119#; (07/02/19) 113# [place] Body Wt: 122 lb (55.3 kg), BMI Classification: BMI 18.5 - 24.9 Normal Weight Nutrition Interventions: Continue NPO Continued Inpatient Monitoring Nutrition Evaluation: Evaluation: Goals set Goals: Start nutrition within 48 hours Monitoring: Nutrition Progression, Diet Tolerance, Skin Integrity, I&O, Weight, Pertinent Labs,Nausea or Vomiting, Monitor Bowel Function Contact Number: pager [phone] * Radha Barrios RN - 10/31/2019 10:00 AM EDT Ileal conduit mucosa pink, pouching system intact-draining marcus urine into bedside drainage garbage collector. Supplies, pattern and instructions are at bedside. Enrolled into ostomy transition to home program. Not receptive to teaching at present-voicing symptoms of nausea and concern over moving to new room. Will follow up with urostomy care/teaching as tolerated by patient. * Kylah Wheeler, [facility] - 10/31/2019 9:36 AM EDT Pharmacy Managed Vancomycin Dosing Service Progress Note Date: 10/31/19 Room:[id number] Patient Name: Linda Kim Allergies: Eggs or egg-derived products Age: 64 y.o. Sex: female Ht: Height: 5' 4.5 (163.8 cm) TBW: Weight: 119 lb (54 kg) BMI: Body mass index is 20.11 kg/m . DW: 54 kg Calculated CrCl: 43 mL/min Lab Results Component Value Date CREATININE 1.11 10/31/2019 CREATININE 2.40 (H) 10/30/2019 CREATININE 2.20 (H) 10/29/2019 BUN 43 (H) 10/31/2019 BUN 48 (H) 10/30/2019 BUN 44 (H) 10/29/2019 WBC 39.6 (HH) 10/31/2019 WBC 42.4 (HH) 10/30/2019 WBC 57.9 (HH) 10/29/2019 Infectious Diagnosis: Leukocytosis (goal trough = 15 - 20 mcg/mL) Antimicrobials: Recent Abx Admin piperacillin-tazobactam (ZOSYN) 3.375 g in dextrose 50 mL IVPB extended infusion (premix) (g) 3.375g New Bag 10/31/19 0204 3.375 g New Bag 10/30/192008 3.375 g New Bag 1342 vancomycin (VANCOCIN) 750 mg in dextrose 5 % 250 mL IVPB (mg) 750 mg New Bag 10/30/19 1215 Assessment/Plan: Renal function improving. Changed Vancomycin to 750 mg (15 mg/kg) every 24hrs. Trough ordered priorto 3rd dose due 10/31 @ 1200. Will monitor renal function closely. Please page/call with questions. Date: 10/31/19 Time: 9:36 AM Name: Kylah Wheeler PharmD Pager: [phone] Phone: [phone] * Keven Downs, DO - 10/31/2019 8:31 AM EDT [facility] Progress Note Linda Kim : 1955(64 y.o.) Date: October 31, 2019 Subjective: HPI The patient complains of tachycardia The patient feels their symptoms areunchanged no events or new concerns Scheduled Meds: tranexamic acid 10 mg/kg Intravenous Once ipratropium 0.5 mg Nebulization Q4H WA mometasone-formoterol 2 puff Inhalation BID piperacillin-tazobactam 3.375 g Intravenous Q8H vancomycin 15 mg/kg Intravenous Q36H sodium chloride flush 10 mL Intravenous 2 times per day alvimopan 12 mg Oral Daily acetaminophen 1,000 mg Oral Q6H magnesium oxide 400 mg Oral Daily Continuous Infusions: PRN Meds:dilTIAZem, perflutren lipid microspheres, sodium chloride flush, hydrOXYzine, melatonin, sodium chloride flush, promethazine OR ondansetron, polyethylene glycol, bisacodyl, traMADol OR traMADol, morphine OR morphine Review of Systems Constitutional: Negative for chills and fever. HENT: Negative for rhinorrhea and sinus pain. Respiratory: Negative for cough and shortness of breath. Cardiovascular: Negative for chest pain and palpitations. Gastrointestinal: Positive for abdominal distention and abdominal pain (mild - surgical site ). Negative for constipation, diarrhea, nausea and vomiting. (-)flatus/BM, (+)belching Genitourinary: Positive for pelvic pain (around surgical site ) and vaginal bleeding. Musculoskeletal: Negative for arthralgias and back pain. Skin: Negative for rash. Neurological: Negative for dizziness and light-headedness. Psychiatric/Behavioral: Negative for dysphoric mood. The patient is not nervous/anxious. Interval Pertinent History: Social History Tobacco Use Smoking status: Current Every Day Smoker Packs/day: 0.50 Years: 25.00 Pack years: 12.50 Types: Cigarettes Smokeless tobacco: Never Used Substance Use Topics Alcohol use: Not Currently Objective: Patient Vitals for the past 24 hrs: BP Temp Temp src Pulse Resp SpO2 10/31/19 0544 (!) 165/92 98.8 F (37.1 C) Temporal 115 15 95 % 10/31/19 0141 (!) 168/90 99.5 F (37.5 C) Temporal 116 16 93 % 10/30/19 2221 14 94 % 10/30/19 2112 (!) 157/83 97.7 F (36.5 C) Temporal 113 14 92 % 10/30/19 1752 (!) 155/81 99.4 F (37.4 C) Temporal 120 18 92 % 10/30/19 1722 19 92 % 10/30/19 1330 (!) 150/76 99.1 F (37.3 C) Temporal 114 91 % 10/30/19 1317 17 92 % 10/30/19 1058 127/71 99 F (37.2 C) Temporal 119 16 93 % 10/30/19 1041 (!) 140/90 97.4 F (36.3 C) Temporal 120 22 91 % Average, Min, and Max for last 24 hours Vitals: TEMPERATURE: Temp Av.7 F (37.1 C) Min: 97.4 F (36.3 C) Max: 99.5 F (37.5 C) RESPIRATIONS RANGE: Resp Av.8 Min: 14 Max: 22 PULSE RANGE: Pulse Av.7 Min: 113 Max: 120 BLOOD PRESSURE RANGE: Systolic (24hrs), Av , Min:127 , Max:168 ; Diastolic (24hrs), Av, Min:71, Max:92 PULSE OXIMETRY RANGE: SpO2 Av.5 % Min: 91 % Max: 95 % I/O last 3 completed shifts: In: 2143 [I.V.:1625; Blood:518] Out: 2670 [Urine:2400; Drains:270] Physical Exam Vitals signs and nursing note reviewed. Constitutional: General: She is not in acute distress. Appearance: She is well-developed. She is not ill-appearing or diaphoretic. HENT: Head: Normocephalic and atraumatic. Mouth/Throat: Mouth: Mucous membranes are not pale and not dry. Pharynx: Uvula midline. No oropharyngeal exudate. Eyes: General: No scleral icterus. Conjunctiva/sclera: Conjunctivae normal. Pupils: Pupils are equal, round, and reactive to light. Neck: Musculoskeletal: Normal range of motion and neck supple. Thyroid: No thyromegaly. Vascular: No JVD. Trachea: No tracheal deviation. Cardiovascular: Rate and Rhythm: Regular rhythm. Tachycardia present. Heart sounds: Normal heart sounds. No murmur. No friction rub. No gallop. Pulmonary: Effort: Pulmonary effort is normal. No respiratory distress. Breath sounds: Decreased breath sounds (diffuse) present. No wheezing, rhonchi or rales. Chest: Chest wall: No tenderness. Abdominal: General: Bowel sounds are normal. There is distension. Palpations: Abdomen is soft. There is no mass. Tenderness: There is generalized abdominal tenderness. There is no guarding or rebound. Hernia: No hernia is present. Comments: MARIA DEL CARMEN/Conduit catheter intact Musculoskeletal: Normal range of motion. General: No swelling, tenderness or deformity. Right lower leg: Edema (+1) present. Left lower leg: Edema (+1) present. Lymphadenopathy: Cervical: No cervical adenopathy. Skin: General: Skin is warm and dry. Capillary Refill: Capillary refill takes less than 2 seconds. Coloration: Skin is not pale. Findings: No erythema or rash. Neurological: General: No focal deficit present. Mental Status: She is alert and oriented to person, place, and time. Cranial Nerves: No cranial nerve deficit. Sensory: No sensory deficit. Motor: No abnormal muscle tone. Coordination: Coordination normal. Deep Tendon Reflexes: Reflexes normal. Psychiatric: Mood and Affect: Mood normal. Behavior: Behavior normal. Thought Content: Thought content normal. Lab Results Component Value Date WBC 39.6 (HH) 10/31/2019 HGB 8.3 (L) 10/31/2019 HCT 24.2 (L) 10/31/2019 MCV 90.4 10/31/2019 PLT 236 10/31/2019 Lab Results Component Value Date NA 132 10/31/2019 K 4.7 10/31/2019 CL 103 10/31/2019 CO2 20 10/31/2019 BUN 43 10/31/2019 CREATININE 1.11 10/31/2019 GLUCOSE 115 10/31/2019 CALCIUM 7.8 10/31/2019 No results found for: LABA1C 10/30/2019 18:55:32 EDT Exam CR Abdomen AP Ordering Physician MD TATYANA, DAVID ABBASIER Accession Number [id number] CPT4 Codes 96035 () Reason For Exam Bloating, ?? ileus Report SINGLE VIEW ABDOMEN CLINICAL INDICATION: Bloating, ?? ileus TECHNIQUE: Single view abdomen x-ray COMPARISON: 10/28/2019 FINDINGS: There is a catheter in the right lower quadrant urostomy and bilateral ureteral stents. Surgical drain in the pelvis. Subcutaneous gas along the abdominal wall on the left compatible with recent surgery. Multiple dilated small bowel loops, with some colonic gas as well. Bowel dilation is more prominent than on the prior study. IMPRESSION: 1. Most concerning for ileus. Continued follow-up recommended to exclude obstruction, however. 10/30/2019 09:30:41 EDT Exam NM Pulmonary Perfusion w/ Vent Aerosol Ordering Physician MD LANDRY STEPHEN JOHN Accession Number [id number] CPT4 Codes 20294 (), A9567 () Reason For Exam tachycardia, elevated d-dimer Report VENTILATION-PERFUSION (VQ) SCAN CLINICAL INDICATION: Tachycardia, elevated d- dimer Multiple ventilation images of the lungs were obtained after the inhalation of approximately 1 millicuries of technetium-99m DTPA aerosol. Corresponding perfusion images of the lungs were then acquired after the intravenous administration of 5 millicuries of technetium-99m MAA. COMPARISON: Chest x-ray performed the day prior FINDINGS: There is a diffusely heterogeneous appearance of the ventilation images of the lungs, with deposition of aerosol within the central airways. No mismatched perfusion defects are seen on the perfusion images. IMPRESSION: Low probability study for pulmonary embolism. Heterogeneous appearance of the ventilation images with deposition of aerosol within the central airways, consistent with a component of obstructive lung disease. Exam Date/Time 10/30/2019 09:54:[address] Abdomen/Pelvis (No PO, No IV) Ordering Physician MD BRYSON, JEREMY Gates Accession Number [id number] CPT4 Codes 00583 (CT Abdomen/Pelvis (No PO, No IV)) Reason For Exam Ongoing anemia, concer for hematoma Report Clinical indication: Ongoing anemia. Concern for hematoma. History of bladder cancer. Comparison: None Radiation dose: DLP 208 mGycm Noncontrast imaging from diaphragm through the ischial tuberosities was performed with axial, coronal and sagittal images reconstructed. Images which include the lung bases show emphysematous changes in the lungs. Small bilateral pleural effusions are present with mild dependent atelectasis, right greater andriy n left. No focal inherent masses are noted in liver or spleen. Gallbladder appears mildly distended. Calcifications are noted in the pancreatic head and scattered through the body and tail. Adrenal glands are not enlarged. Kidneys contain stents bilaterally which extends through the ureters into the patient's recently constructed ileal conduit. There is also a catheter in the ileal conduit. Free intraperitoneal air is present. There is also air within the abdominal wall and subcutaneous tissues. Extraperitoneal air is present in the pelvis all related to the patient's recent surgery. There issmall to moderate amount of free fluid around liver and spleen. Fluid is present in the paracolic gutters and there is fluid in the pelvis. Fluid appears slightly more dense than simple ascites and is suspicious for bloody fluid. A surgical drain is noted in the pelvis. Bowel loops are mildly dilated with air and fluid in the ileus pattern. Aorta is atherosclerotic with no aneurysm. Vena cava is incompletely distended. There is no retroperitoneal adenopathy noted. Degenerative endplate hypertrophy is noted in the spine but there are no acute osseous abnormalities. L4-L5 and L5-S1 discs show degenerative changes. IMPRESSION: Free intraperitoneal fluid appears denser than simple ascites and is suspicious for peritoneal blood CTR: I spoke with Raquel, the patient's nurse via telephone at 10:12 AM 10/30/2019. Abdominal wall air, free intraperitoneal air and pelvic extraperitoneal air consistent with the patient's recent surgery Ileal conduit with catheter and bilateral ureteral stents. There is no hydronephrosis. TRANSTHORACIC ECHOCARDIOGRAM 10/30/2019 INDICATIONS: Tachycardia. CONCLUSIONS SUMMARY: 1. Left ventricle: The cavity size is normal. Wall thickness is normal. Systolic function is hyperdynamic by visual assessment. The estimated ejection fraction is 75%. There are no regional wall motion abnormalities. Left ventricular diastolic function parameters are normal. 2. Right ventricle: The cavity size is normal. Systolic function is normal. Right ventricular systolic pressure is within the normal range. 3. No significant valve disease. 4. Inferior vena cava: The vessel is small, appearing collapsed, consistent with low central venous pressure. The IVC collapses by greater than 50% with inspiration. Additional results of the last 24 hours have been reviewed. Assessment and Plan: Principal Problem: Malignant neoplasm of urinary bladder (HCC) Active Problems: Tachycardia Leukocytosis VICTOR HUGO (acute kidney injury) (HCC) SIRS (systemic inflammatory response syndrome) (HCC) Hypoxia Postoperative anemia due to acute blood loss Ileus (HCC) Bilateral pleural effusion Peritoneal bleeding Resolved Problems: * No resolved hospital problems. * # SIRS # Hypoxia, Tachycardia, Acute Leukocytosis, mildly elevated procal # Bilateral pleural effusion -in the setting of acute blood loss anemia and bilateral pleural effusion and negative V/Q scan -r/o infectious etiology -unremarkable echo, transfer to [facility] -heparin gtt DC, decreased IVF rate -IS, bronchodilators, cont vanc/zosyn pending cultures -will consider IV lasix and thora if hypoxia persist -check CXR # Ileus -in the setting of recent surgery with peritoneal bleed on CT -judicious use of IVF due to b/l pleural effusion and hypoxia, -replete lytes PRN -recommend NPO (ok with meds/sips), NG and gen surg consult if no improvement pending repeat KUB # Postoperative anemia due to acute blood loss, improving # Vaginal bleeding # Peritoneal bleed -s/p 2 U pRBC 10/30/19 and tranexamic acid per primary -H/H trend # Accelerated HTN -no documented hx of HTN -PRN labetalol, sBP>160, -will consider PO antihypertensive (amlodipine) upon resolution of ileus and if HTN persist # VICTOR HUGO, improving -baseline Cr 0.5-0.7 -IVF, caution with nephrotoxic meds # Hyperkalemia, resolved -cont to monitor # Tobacco abuse suspect underlining obstructive lung disease -started on bronchodilators -recommend outpt PFT # Malignance (valvular mass and bladder cancer) oncology Dr Prieto at [facility] # 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 # Malignant neoplasm of urinary bladder -s/p chemo completed September 2019 -s/p Robotic anterior pelvic exenteration, B/L PLND with ileal conduit 10/28/2019 -managed by primary # DVTProphylaxis: SCDs # Disposition:will follow I spent over 51% of total time providing counseling or incoordination of care: > 25 minutes discussed with nurse, I personally examined the patient and I personally reviewed chart, data, labsradiology reports 6AM-6PM please page: Electronically signed by Keven Downs DO on October 31, 2019 at 8:31 AM 6PM-6AM please page: [facility] [place] [facility] * David Alexandre MD - 10/31/2019 7:53 AM EDT UROLOGY PROGRESS NOTE PATIENT NAME: Linda Kim DATE OF : 1955 ADMISSION DATE: 10/28/2019 5:41 AM TODAY'S DATE: 10/31/2019 Subjective Increased abdominal distention yesterday No nausea/vomiting Transfused 2 units pRBCs yesterday and responded appropriately MARIA DEL CARMEN with 270cc SS output Has been on bed rest No flatus/BM. Has been belching Objective VS: BP (!) 165/92 Pulse 115 Temp 98.8 F (37.1 C) (Temporal) Resp 15 Ht 5' 4.5 (1.638 m) Wt 119 lb (54 kg) SpO2 95% BMI 20.11 kg/m Vitals: 10/31/19 0544 BP: (!) 165/92 Pulse: 115 Resp: 15 Temp: 98.8 F (37.1 C) SpO2: 95% I & O - 24hr: Intake/Output Summary (Last 24 hours) at 10/31/2019 0754 Last data filed at 10/31/2019 0438 Gross per 24 hour Intake 2143 ml Output 2670 ml Net -527 ml Physical Exam: General: Neck: Resp: Abdomen: No acute distress Supple Normal effort Soft, non-tender, mildly distended, some drainage around MARIA DEL CARMEN site, MARIA DEL CARMEN with SS output : Ileal conduit with pink stoma, some brown mucus overlying, and B/L stents/catheter extruding draining yellow urine Skin: Skin color, texture, turgor normal, no rashes or lesions Labs and Imaging Studies Labs: CBC: Recent Labs 10/29/19 0525 10/30/19 0322 10/30/19 1614 10/30/19 2356 10/31/19 0534 WBC 57.9* -- 42.4* -- -- 39.6* HGB 8.7* < > 6.6* 8.5* 8.3* 8.3* HCT 26.1* < > 19.8* 24.9* 24.3* 24.2* MCV 98.6* -- 94.4 -- -- 90.4 PLT 309 -- 257 -- -- 236 < > = values in this interval not displayed. BMP: Recent Labs 10/29/19 2229 10/30/19 0322 10/31/19 0534 NA 129* 130* 132* K 5.3* 5.4* 4.7 CL 102 104 103 CO2 19* 19* 20* BUN 44* 48* 43* CREATININE 2.20* 2.40* 1.11 Magnesium: No results found for: MG Phosphate: No results found for: PHOS PT/INR: Recent Labs 10/31/19 0534 PROTIME 10.3 INR 0.9 U/A: No results found for: NITRITE, LEUKOCYTESUR, PHUR, WBCUA, RBCUA, BACTERIA, SPECGRAV, BLOODU, GLUCOSEU Urine Culture: No results found for: LABURIN Imaging Studies: CT A/P without contrast 10/29 IMPRESSION: Free intraperitoneal fluid appears denser than simple ascites and is suspicious for peritoneal blood CTR: I spoke with Raquel, the patient's nurse via telephone at 10:12 AM 10/30/2019. Abdominal wall air, free intraperitoneal air and pelvic extraperitoneal air consistent with the patient's recent surgery Ileal conduit with catheter and bilateral ureteral stents. There is no hydronephrosis. Small bilateral pleural effusions and bilateral dependent atelectasis KUB 10/29 IMPRESSION: 1. Most concerning for ileus. Continued follow-up recommended to exclude obstruction, however. Assessment and Plan ASSESMENT: 64 yo F with MIBC s/p Robotic anterior pelvic exenteration, B/L PLND with ileal conduit 10/28/2019 PLAN: - Lovenox held yesterday 2/2 anemia, improved today. Hgb 8.3 (8.5) 6.6 - SCDs, IS - Will discuss possibly increasing activity today given stable hgb since yesterday evening - Possibly restart Heparin/Lovenox - PT/OT consult pending - Entereg until +BM or 7 days, imaging findings concerning for ileus, will likely recheck KUB today - Maintain on CLD for now, has not taken much PO 2/2 feelings of worsening distention following intake - SCr improved - Maintain MARIA DEL CARMEN/Conduit catheter - Heme/onc consult 2/2 Leukocytosis, decreased today however persistently elevated (42.4 -> 39.6), cultures and peripheral smear pending - Appreciate medicine recommendations, particularly given recent issues with hypertension. Echo ordered 2/2 tachycardia yesterday without accute findings Jeremy Queen, PGY-4 10/31/2019 7:54 AM For questions/concerns please page liquefaction supervisor Urology resident Discussed with the urology resident. I concur with the assessment and plan. David Alexandre M.D. 10/31/2019 * Vesta Chanel PT - 10/31/2019 7:15 AM EDT Physical Therapy Pt remains on bedrest, hold PT. Vesta Chanel, PT * Nilesh Short, OT - 10/31/2019 6:21 AM EDT Occupational Therapy Pt with active bedrest order, will follow. * Jessie Austin RN - 10/31/2019 6:01 AM EDT Primary notified of elevated BP 165/92 * Jessie Austin RN - 10/31/2019 5:[address] Landry and primary care notified of continual vaginal bleeding. * Raquel Clinton RN - 10/30/2019 6:[address] of continued bleeding and increased bloating. * Vesta Chanel PT - 10/30/2019 2:41 PM EDT Physical Therapy Reattempted PT lazaro pt now on bedrest as of 1030a; hold PT. Vesta Chanel PT * Linda Foote - 10/30/2019 10:22 AM EDT .Nutrition rescreen completed. Patient is NPO/Clear liquid >3 days. Refer to Dietitian.Linda Foote DT * Vesta Chanel PT - 10/30/2019 8:58 AM EDT Physical Therapy Attempted PT maurice willis currently OOR. Will retry later as schedule permits. Vesta Chanel PT * Keven Downs DO - 10/30/2019 7:35 AM EDT [facility] Progress Note Linda Kim : 1955(64 y.o.) Date: October 30, 2019 Subjective: HPI The patient complains of tachycardia The patient feels their symptoms areunchanged no events or new concerns Scheduled Meds: sodium chloride 20 mL Intravenous Once ipratropium 0.5 mg Nebulization Q4H WA mometasone-formoterol 2 puff Inhalation BID vancomycin 1,000 mg Intravenous Q24H piperacillin-tazobactam 3.375 g Intravenous Q8H sodium chloride flush 10 mL Intravenous 2 times per day alvimopan 12 mg Oral Daily acetaminophen 1,000 mg Oral Q6H magnesium oxide 400 mg Oral Daily Continuous Infusions: sodium chloride 125 mL/hr at 10/30/19 0703 PRN Meds:heparin (porcine), heparin (porcine), perflutren lipid microspheres, sodium chloride flush, dilTIAZem, melatonin, sodium chloride flush, promethazine OR ondansetron, polyethylene glycol,bisacodyl, traMADol OR traMADol, morphine OR morphine Review of Systems Constitutional: Positive for fatigue. Negative for chills and fever. HENT: Negative for rhinorrhea and sinus pain. Respiratory: Negative for cough and shortness of breath. Cardiovascular: Negative for chest pain and palpitations. Gastrointestinal: Positive for abdominal pain (mild - surgical site ). Negative for constipation, diarrhea, nausea and vomiting. Genitourinary: Positive for pelvic pain (around surgical site ). Musculoskeletal: Negative for arthralgias and back pain. Skin: Negative for rash. Neurological: Positive for light-headedness (with sitting up). Negative for dizziness. Psychiatric/Behavioral: Negative for dysphoric mood. The patient is not nervous/anxious. Interval Pertinent History: Social History Tobacco Use Smoking status: Current Every Day Smoker Packs/day: 0.50 Years: 25.00 Pack years: 12.50 Types: Cigarettes Smokeless tobacco: Never Used Substance Use Topics Alcohol use: Not Currently Objective: Patient Vitals for the past 24 hrs: BP Temp Temp src Pulse Resp SpO2 10/30/19 0539 128/68 97.6 F (36.4 C) Temporal 118 16 92 % 10/30/19 0336 104/70 96.3 F (35.7 C) Temporal 131 18 94 % 10/30/19 0109 (!) 110/59 98.5 F (36.9 C) Temporal 125 16 92 % 10/29/19 2101 (!) 143/82 98 F (36.7 C) Temporal 118 18 93 % 10/29/19 1721 128/77 96.8 F (36 C) Temporal 127 16 95 % 10/29/19 1358 108/72 97.4 F (36.3 C) Temporal 118 16 93 % 10/29/19 1233 97/64 97 F (36.1 C) Temporal 120 15 96 % 10/29/19 1149 102/68 97.5 F (36.4 C) Temporal 118 19 91 % 10/29/19 1118 98/63 97.3 F (36.3 C) Temporal 119 16 91 % 10/29/19 1018 (!) 90/58 97.2 F (36.2 C) Temporal 125 10/29/19 0934 (!) 83/53 123 92 % 10/29/19 0924 (!) 88/53 96.3 F (35.7 C) Temporal 123 16 92 % Average, Min, and Max for last 24 hours Vitals: TEMPERATURE: Temp Av.3 F (36.3 C) Min: 96.3 F (35.7 C) Max: 98.5 F (36.9 C) RESPIRATIONS RANGE: Resp Av.6 Min: 15 Max: 19 PULSE RANGE: Pulse Av.1 Min: 118 Max: 131 BLOOD PRESSURE RANGE: Systolic (24hrs), Av , Min:83 , Max:143 ; Diastolic (24hrs), Av, Min:53, Max:82 PULSE OXIMETRY RANGE: SpO2 Av.8 % Min: 91 % Max: 96 % I/O last 3 completed shifts: In: 2000 [P.O.:800; I.V.:800; Blood:400] Out: 950 [Urine:650; Drains:300] Physical Exam Vitals signs and nursing note reviewed. Constitutional: General: She is not in acute distress. Appearance: She is well-developed. She is not ill-appearing or diaphoretic. HENT: Head: Normocephalic and atraumatic. Mouth/Throat: Mouth: Mucous membranes are not pale and not dry. Pharynx: Uvula midline. No oropharyngeal exudate. Eyes: General: No scleral icterus. Conjunctiva/sclera: Conjunctivae normal. Pupils: Pupils are equal, round, and reactive to light. Neck: Musculoskeletal: Normal range of motion and neck supple. Thyroid: No thyromegaly. Vascular: No JVD. Trachea: No tracheal deviation. Cardiovascular: Rate and Rhythm: Regular rhythm. Tachycardia present. Heart sounds: Normal heart sounds. No murmur. No friction rub. No gallop. Pulmonary: Effort: Pulmonary effort is normal. No respiratory distress. Breath sounds: Decreased breath sounds (diffuse) present. No wheezing, rhonchi or rales. Chest: Chest wall: No tenderness. Abdominal: General: Bowel sounds are normal. There is no distension. Palpations: Abdomen is soft. There is no mass. Tenderness: There is no abdominal tenderness. There is no guarding or rebound. Hernia: No hernia is present. Comments: MARIA DEL CARMEN/Conduit catheter Musculoskeletal: Normal range of motion. General: No swelling, tenderness or deformity. Right lower leg: Edema (+1) present. Left lower leg: Edema (+1) present. Lymphadenopathy: Cervical: No cervical adenopathy. Skin: General: Skin is warm and dry. Capillary Refill: Capillary refill takes less than 2 seconds. Coloration: Skin is not pale. Findings: No erythema or rash. Neurological: General: No focal deficit present. Mental Status: She is alert and oriented to person, place, and time. Cranial Nerves: No cranial nerve deficit. Sensory: No sensory deficit. Motor: No abnormal muscle tone. Coordination: Coordination normal. Deep Tendon Reflexes: Reflexes normal. Psychiatric: Mood and Affect: Mood normal. Behavior: Behavior normal. Thought Content: Thought content normal. Lab Results Component Value Date WBC 42.4 (HH) 10/30/2019 HGB 6.6 (LL) 10/30/2019 HCT 19.8 (L) 10/30/2019 MCV 94.4 10/30/2019 PLT 257 10/30/2019 Lab Results Component Value Date NA 130 10/30/2019 K 5.4 10/30/2019 CL 104 10/30/2019 CO2 19 10/30/2019 BUN 48 10/30/2019 CREATININE 2.40 10/30/2019 GLUCOSE 128 10/30/2019 CALCIUM 7.7 10/30/2019 No results found for: LABA1C Additional results of the last 24 hours have been reviewed. Assessment and Plan: Principal Problem: Malignant neoplasm of urinary bladder (HCC) Active Problems: Tachycardia Leukocytosis VICTOR HUGO (acute kidney injury) (HCC) SIRS (systemic inflammatory response syndrome) (HCC) Hypoxia Postoperative anemia due to acute blood loss Resolved Problems: * No resolved hospital problems. * # SIRS # Hypoxia, Tachycardia, Acute on Chronic Leukocytosis -unclear etiology, concern for PE unable to r/o infection and acute blood loss anemia as a contributory factor -leukocytosis of unknown chronicity and etiology, will consider hematology eval pending obtain records from PCP's office -on heparin gtt and abx pending V/Q scan, echo, cultures and procal # VICTOR HUGO -IVF, obtain urine studies, caution with nephrotoxic meds # Postoperative anemia due to acute blood loss -s/p 2 U pRBC 10/30/19 per primary # Hyperkalemia, mild -likely due to VICTOR HUGO -cont to monitor # Tobacco abuse suspect underlining obstructive lung disease -started on bronchodilators -recommend outpt PFT # Malignance (valvular mass and bladder cancer) oncology Dr Prieto at [facility] # 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 # Malignant neoplasm of urinary bladder -s/p chemo completed September 2019 -s/p Robotic anterior pelvic exenteration, B/L PLND with ileal conduit 10/28/2019 -managed by primary # DVTProphylaxis: heparin gtt # Disposition:will follow I spent over 51% of total time providing counseling or incoordination of care: > 25 minutes discussed with nurse, I personally examined the patient and I personally reviewed chart, data, labsradiology reports 6AM-6PM please page: Electronically signed by Kveen Downs DO on October 30, 2019 at 7:35 AM 6PM-6AM please page: [facility] [place] [facility] * Carlos Alberto Thompson MD - 10/30/2019 6:57 AM EDT UROLOGY PROGRESS NOTE PATIENT NAME: Linda Kim DATE OF : 1955 ADMISSION DATE: 10/28/2019 5:41 AM TODAY'S DATE: 10/30/2019 Subjective Patient tachycardic and hypotensive to 80s systolic yesterday morning s/p 1u pRBCs Hgb partially responded to 9.2 from 8.7 Required 2L O2 overnight after desating to 80s Patient states she feels ok this morning, up to side of bed yesterday MARIA DEL CARMEN with sanguinous output and significant amount of drainage around it Denies light-headedness, dizziness No flatus or BM yet Objective VS: BP 128/68 Pulse 118 Temp 97.6 F (36.4 C) (Temporal) Resp 16 Ht 5' 4.5 (1.638 m) Wt 119 lb (54 kg) SpO2 92% BMI 20.11 kg/m Vitals: 10/30/19 0539 BP: 128/68 Pulse: 118 Resp: 16 Temp: 97.6 F (36.4 C) SpO2: 92% I & O - 24hr: Intake/Output Summary (Last 24 hours) at 10/30/2019 0657 Last data filed at 10/30/2019 0431 Gross per 24 hour Intake 2000 ml Output 950 ml Net 1050 ml Physical Exam: General: Neck: Resp: Abdomen: No acute distress Supple Normal effort Soft, non-tender, mildly distended, moderate drainage around MARIA DEL CARMEN site, MARIA DEL CARMEN with sanguinous output, incisions c/d/i : Ileal conduit with pink stoma and B/L stents/catheter extruding draining tea-colored urine Skin: Skin color, texture, turgor normal, no rashes or lesions Labs and Imaging Studies Labs: CBC: Recent Labs 10/29/19 0525 10/29/19 1619 10/30/19 0322 WBC 57.9* -- 42.4* HGB 8.7* 9.2* 6.6* HCT 26.1* 28.3* 19.8* MCV 98.6* -- 94.4 PLT 309 -- 257 BMP: Recent Labs 10/29/19 0526 10/29/19 2229 10/30/19 0322 NA 131* 129* 130* K 5.0 5.3* 5.4* CL 104 102 104 CO2 16* 19* 19* BUN 29* 44* 48* CREATININE 1.34* 2.20* 2.40* Magnesium: No results found for: MG Phosphate: No results found for: PHOS PT/INR: No results for input(s): PROTIME, INR in the last 72 hours. U/A: No results found for: NITRITE, LEUKOCYTESUR, PHUR, WBCUA, RBCUA, BACTERIA, SPECGRAV, BLOODU, GLUCOSEU Urine Culture: No results found for: LABURIN Imaging Studies: KUB 10/28/2019 A single supine view of the abdomen was obtained at 1418 hours. The bowel gas pattern is satisfactory. There are no obvious findings to suggest pneumoperitoneum. No abnormal calcifications are identified. Bilateral renal stents are present, presumably exiting a right lower quadrant urostomy. There is no appreciable mass effect. Review of the osseous structures demonstrate no gross abnormality. IMPRESSION: Bilateral urinary tract stents place, apparently exiting a right lower quadrant urostomy. Assessment and Plan ASSESMENT: 64 yo F with MIBC s/p Robotic anterior pelvic exenteration, B/L PLND with ileal conduit 10/28/2019 PLAN: - Encouraged ambulation - PT/OT consulted - no therapy yesterday as patient was getting blood at the time, reassess today - Entereg until +BM or 7 days - Maintain on CLD for now - Maintain MARIA DEL CARMEN/Conduit catheter - MARIA DEL CARMEN with ~300cc output, Ileal conduit with ~650cc output - Hgb yesterday partially responded to 1 unit pRBCs (8.7->9.2) - Hgb drop to 6.6 this AM, 2 units pRBCs ordered - Medicine consulted overnight because of tachycardia, concerned for PE, V/Q scan ordered for this morning, heparin gtt held after morning lab results - CT A/P w/o contrast to assess for hematoma - continue to monitor vitals closely, page resident liquefaction supervisor for hypotension or clinical decline - Will discuss with attending Carlos Alberto Thompson, 10/30/2019 6:57 AM For questions/concerns please page liquefaction supervisor Urology resident * Jessie Austin RN - 10/30/2019 4:33 AM EDT 0314: Bed linens changed due to gross bleeding from MARIA DEL CARMEN site. Drain sponge dressing changed. MARIA DEL CARMEN emptied for 60cc bloody drainage. Dr. Landry notified of patient's concern for heparin drip. 0430: Dressing to MARIA DEL CARMEN site changed. Saturated with blood. MARIA DEL CARMEN emptied for 30cc bloody drainage. * Walter Hauser, PT - 10/29/2019 1:45 PM EDT Physical Therapy Facility/Department: [facility] Pt getting 1 unit of blood. Pt reports having high HR (120's on pulse ox) and low BP. Spoke with covering RN (nghia) for RN (anuj) and will hold at this time. Walter Hauser PT * Radha Barrios, MAURICIO - 10/29/2019 9:00 AM EDT Ileal conduit 1 1/4 inch, mucosa pink, moist, peristomal skin intact, red cath and bilateral stentsintact, draining tea colored urine into bedside drainage garbage collector. Lesson on ileal conduit care with pouching system change done using 2 1/4 inch 2 piece Marylu flange, ring and urostomy pouch attached to bedside drainage bag. Was attentive to instructions. Urostomy folder information reviewed.Supplies, instructions and pattern at bedside. * Jeremy Queen MD - 10/29/2019 6:24 AM EDT UROLOGY PROGRESS NOTE PATIENT NAME: Linda Kim DATE OF : 1955 ADMISSION DATE: 10/28/2019 5:41 AM TODAY'S DATE: 10/29/2019 Subjective No acute events overnight. Afebrile. Tolerating clear liquid diet. Some L sided pain associated with nausea. No vomiting Conduit draining 600cc tea-colored urine MARIA DEL CARMEN [id number] SS output Has not been out of bed No flatus/BM Objective VS: BP (!) 99/59 Pulse 107 Temp 97.7 F (36.5 C) (Temporal) Resp 18 Ht 5' 4.5 (1.638 m) Wt 119 lb (54 kg) SpO2 93% BMI 20.11 kg/m Vitals: 10/29/19 0132 BP: (!) 99/59 Pulse: 107 Resp: 18 Temp: 97.7 F (36.5 C) SpO2: 93% I & O - 24hr: Intake/Output Summary (Last 24 hours) at 10/29/2019 0625 Last data filed at 10/28/2019 1632 Gross per 24 hour Intake Output 90 ml Net -90 ml Physical Exam: General: Neck: Resp: Abdomen: No acute distress Supple Normal effort Soft, non-tender, mildly distended, some drainage around MARIA DEL CARMEN site, MARIA DEL CARMEN with SS output : Ileal conduit with pink stoma and B/L stents/catheter extruding draining tea-colored urine Skin: Skin color, texture, turgor normal, no rashes or lesions Labs and Imaging Studies Labs: CBC: No results for input(s): WBC, HGB, HCT, MCV, PLT in the last 72 hours. BMP:No results for input(s): NA, K, CL, CO2, PHOS, BUN, CREATININE in the last 72 hours. Invalid input(s): CA Magnesium: No results found for: MG Phosphate: No results found for: PHOS PT/INR: No results for input(s): PROTIME, INR in the last 72 hours. U/A: No results found for: NITRITE, LEUKOCYTESUR, PHUR, WBCUA, RBCUA, BACTERIA, SPECGRAV, BLOODU, GLUCOSEU Urine Culture: No results found for: LABURIN Imaging Studies: KUB 10/28/2019 A single supine view of the abdomen was obtained at 1418 hours. The bowel gas pattern is satisfactory. There are no obvious findings to suggest pneumoperitoneum. No abnormal calcifications are identified. Bilateral renal stents are present, presumably exiting a right lower quadrant urostomy. There is no appreciable mass effect. Review of the osseous structures demonstrate no gross abnormality. IMPRESSION: Bilateral urinary tract stents place, apparently exiting a right lower quadrant urostomy. Assessment and Plan ASSESMENT: 64 yo F with MIBC s/p Robotic anterior pelvic exenteration, B/L PLND with ileal conduit 10/28/2019 PLAN: - Lovenox/SCDs - Encouraged ambulation - PT/OT consult pending - Entereg until +BM or 7 days - Maintain on CLD for now - Maintain MARIA DEL CARMEN/Conduit catheter - MARIA DEL CARMEN with ~140cc output, Ileal conduit with ~600cc output - Labs pending this AM - Will discuss with attending Jeremy Queen, PGY-4 10/29/2019 6:25 AM For questions/concerns please page liquefaction supervisor Urology resident * Elaine Tracey RN - 10/28/2019 1:19 PM EDT Pt arrived to PACU from OR. Pt ID verified. Monitors applied with alarms on. Vital signs stable. documented in this encounter* Beatrice Ibarra RN - 11/20/2019 1:03 PM EDT Went over discharge instructions. Med rec, and prescription with pt. Pt verbalized understanding. Pt stated she has plenty of ostomy supplies and also has lovenox injections at home. Pt will notify staff when she is ready for transport * Radha Barrios RN - 11/19/2019 2:18 PM EDT Ileal conduit pouching system intact without itching or burning. Supplies at bedside. Attached pouch to bedside drainage bag. * Tena Alvarado MD - 11/19/2019 11:46 AM EDT Progress Note 11/19/2019 11:46 AM Name: Linda Kim IP Day: 3 Admit Date: 11/16/2019 2:55 AM PCP: BEATRICE IRAHETA Code Status: Full Code Subjective: feeling slightly better. Weak. No cp, sob, cough, n/v, f/c, dizziness. Anxious about going home. D/w pt Physical Examination: Vitals: BP 120/66 Pulse 100 Temp 99.3 F (37.4 C) (Temporal) Resp 16 Wt 115 lb 6.4 oz (52.3 kg) SpO2 95% BMI 19.50 kg/m Temp (24hrs), Av.6 F (37 C), Min:98.2 F (36.8 C), Max:99.3 F (37.4 C) General appearance: alert, cooperative and no distress Mental Status: oriented to person, place and time and normal affect Lungs: clear to auscultation bilaterally, normal effort Heart: regular rate and rhythm, no murmur Abdomen: soft, slightly tender, distended, bowel sounds present, no masses Extremities: no edema, redness, tenderness in the calves Skin: no gross lesions, rashes Data: Labs: Recent Labs 11/18/19 0332 11/19/19 0353 WBC 9.3 9.0 HGB 8.6* 9.0* PLT 390 381 Recent Labs 11/18/19 0332 11/19/19 0353 NA 136 132* K 3.5 3.1* CL 114* 106 CO2 17* 20* BUN 20 12 CREATININE 0.48* 0.40* GLUCOSE 77 96 No results for input(s): AST, ALT, ALB, BILITOT, ALKPHOS in the last 72 hours. Assessment and Plan: -Small bowel obstruction. -Acute blood loss anemia. -Intra-abdominal hematoma. -Leukocytosis-improving -Bladder cancer, status post robotic cystectomy,ileal conduit on 10/28/19 -sinus tachycardia. -COPD not in exacerbation -Hypokalemia -hypomagnesemia Plan: continue diet, replace lytes, follow up labs, follow up procal, continue IV antibiotics for now, likely discharge in AM if tolerating diet and symptoms continue to improve, see orders * Jacobo Rick, DO - 11/19/2019 7:52 AM EDT Department of Surgery Progress Note PATIENT NAME: Linda Kim : 1955 ATTENDING PHYSICIAN: Tena Alvarado MD ADMIT DATE: 11/16/2019 TODAY'S DATE: 11/19/2019 SUBJECTIVE Patient is doing well. Pain is well controlled on current medications. Patient denies nausea, denies vomiting, reports flatus, reports bowel movements, and is ambulating. OBJECTIVE VITALS: Patient Vitals for the past 24 hrs: BP Temp Temp src Pulse Resp SpO2 Weight 11/19/19 0532 (!) 147/76 98.2 F (36.8 C) Oral 93 18 93 % 11/19/19 0241 115 lb 6.4 oz (52.3 kg) 11/19/19 0101 132/72 98.3 F (36.8 C) Oral 81 18 93 % 11/18/19 2041 127/69 98.5 F (36.9 C) Oral 100 18 93 % 11/18/19 1807 (!) 146/70 98.5 F (36.9 C) Temporal 90 20 93 % 11/18/19 1256 (!) 150/71 98.5 F (36.9 C) Temporal 91 20 94 % 11/18/19 0908 (!) 141/75 99.3 F (37.4 C) Temporal 88 16 94 % PHYSICAL EXAM: CONSTITUTIONAL: NAD, Resting in bed CHEST: Resp effort easy and unlabored ABDOMEN: soft, minimally distended, non-tender EXT: extremities normal, atraumatic, no cyanosis or edema INTAKE/OUTPUT: Date 11/19/19 0000 - 11/19/19 2359 Shift 0829-2316 4949-8475 2462-9731 24 Hour Total INTAKE P.O.(mL/kg/hr) 450 450 Shift Total(mL/kg) 450(8.6) 450(8.6) OUTPUT Urine(mL/kg/hr) 600 600 Shift Total(mL/kg) 600(11.5) 600(11.5) Weight (kg) 52.3 52.3 52.3 52.3 I/O last 3 completed shifts: In: 1100 [P.O.:1100] Out: 1500 [Urine:1500] No intake/output data recorded. Data CBC: Recent Labs 11/17/19 0322 11/18/19 0332 11/19/19 0353 WBC 12.4* 9.3 9.0 HGB 8.8* 8.6* 9.0* HCT 26.6* 25.8* 27.0* PLT 402 390 381 BMP: Recent Labs 11/17/192 11/18/19 0332 11/19/19 0353 NA 136 136 132* K 3.8 3.5 3.1* CL 114* 114* 106 CO2 14* 17* 20* BUN 28* 20 12 CREATININE 0.65 0.48* 0.40* GLUCOSE 81 77 96 HEPATIC: No results for input(s): ALKPHOS, ALT, AST, PROT, BILITOT, BILIDIR, LABALBU in the last 72hours. Current Inpatient Medications Current Facility-Administered Medications: magnesium sulfate 2 g in 50 mL IVPB premix, 2 g, Intravenous, Once polyethylene glycol (GLYCOLAX) packet 17 g, 17 g, Oral, BID metoprolol tartrate (LOPRESSOR) tablet 25 mg, 25 mg, Oral, BID lactated ringers infusion, , Intravenous, Continuous famotidine (PEPCID) injection 20 mg, 20 mg, Intravenous, BID sodium chloride flush 0.9 % injection 10 mL, 10 mL, Intravenous, 2 times per day sodium chloride flush 0.9 % injection 10 mL, 10 mL, Intravenous, PRN acetaminophen (TYLENOL) tablet 650 mg, 650 mg, Oral, Q6H PRN OR acetaminophen (TYLENOL) suppository 650 mg, 650 mg, Rectal, Q6H PRN promethazine (PHENERGAN) tablet 12.5 mg, 12.5 mg, Oral, Q6H PRN OR ondansetron (ZOFRAN) injection 4 mg, 4 mg, Intravenous, Q6H PRN [Held by provider] enoxaparin (LOVENOX) injection 40 mg, 40 mg, Subcutaneous, Daily bisacodyl (DULCOLAX) suppository 10 mg, 10 mg, Rectal, Daily PRN morphine sulfate (PF) injection 2 mg, 2 mg, Intravenous, Q4H PRN piperacillin-tazobactam (ZOSYN) 3.375 g in dextrose 50 mL IVPB extended infusion (premix), 3.375 g,Intravenous, Q8H albuterol sulfate HFA 108 (90 Base) MCG/ACT inhaler 2 puff, 2 puff, Inhalation, Q6H PRN tiotropium (SPIRIVA) inhalation capsule 18 mcg, 18 mcg, Inhalation, Daily iopamidol (ISOVUE-370) 76 % injection 75 mL, 75 mL, Intravenous, ONCE PRN diatrizoate meglumine-sodium (GASTROGRAFIN) 66-10 % solution 30 mL, 30 mL, Oral, ONCE PRN ASSESSMENT & PLAN 64 y/o F s/p robotic cystectomy 10/27 complicated by SBO s/p laparoscopic enterolysis 11/07 who presents back with abdominal pain, likely secondary to ileus Abdominal pain improved, passing flatus and having several BM. CT A/P from 11/16 reviewed and hematoma resolving and contrast into descending colon, SB dilation likely secondary to ileus. Advance to surgical soft diet Keep on miralax BID when patient is discharged home, scripts provided Encourage OOB, ambulation, IS Continue IVF until tolerating PO well Urology following Pager:[phone] Associated attestation - Ruben Neil MD - 11/19/2019 8:07 AM EDT [facility] - [facility] Physicians Surgery Patient Name: Linda Kim Date: 11/19/19 Agree - no acute - tolerating PO with BM's. BP (!) 147/76 Pulse 93 Temp 98.2 F (36.8 C) (Oral) Resp 18 Wt 115 lb 6.4 oz (52.3 kg) SpO2 93% BMI 19.50 kg/m CBC: Recent Labs 11/17/192 11/18/1933111/19/19 0353 WBC 12.4* 9.3 9.0 HGB 8.8* 8.6* 9.0* HCT 26.6* 25.8* 27.0* PLT 402 390 381 BMP: Recent Labs 11/17/192 11/18/19 0332 11/19/19 0353 NA 136 136 132* K 3.8 3.5 3.1* CL 114* 114* 106 CO2 14* 17* 20* BUN 28* 20 12 CREATININE 0.65 0.48* 0.40* GLUCOSE 81 77 96 Hepatic:No results for input(s): ALKPHOS, ALT, AST, PROT, BILITOT, BILIDIR, LABALBU in the last 72 hours. Abdomen: Soft, nontender, less distended. Plan: Ileus - resolving Soft diet No new surgical recs D/c planning per primary service I personally supervised my Resident/Surgical Fellow in the evaluation and management of Linda Kim in the development of a treatment plan for this patient. I personally interviewed the patient and performed an individual physical examination. In addition, I discussed the patient's condition and treatment options with them. I have also reviewed and agree with the past medical, family and social history and care plan unless otherwise noted. All of the patient's questions were answered. iewed by myself. A full chart review was performed. * Matteo Layne MD - 11/19/2019 6:48 AM EDT UROLOGY PROGRESS NOTE PATIENT NAME: Linda Kim DATE OF : 1955 ADMISSION DATE: 11/16/2019 2:55 AM TODAY'S DATE: 11/19/2019 Subjective No acute events overnight. Afebrile. No nausea or vomiting. Ileal conduit draining well Passing flatus and BMs. Abdomen feels better. Biggest complaint is hunger this morning. Objective VS: BP (!) 147/76 Pulse 93 Temp 98.2 F (36.8 C) (Oral) Resp 18 Wt 115 lb 6.4 oz (52.3 kg) SpO2 93% BMI 19.50 kg/m Vitals: 11/19/19 0532 BP: (!) 147/76 Pulse: 93 Resp: 18 Temp: 98.2 F (36.8 C) SpO2: 93% I & O - 24hr: Intake/Output Summary (Last 24 hours) at 11/19/2019 0648 Last data filed at 11/19/2019 0532 Gross per 24 hour Intake 1100 ml Output 1500 ml Net -400 ml Physical Exam: General: Neck: Resp: Abdomen: No acute distress Supple Normal effort Soft, non-tender, non-distended, incisions healing well, some ecchymosis around incision sites : ileal conduit with mucus overlying Skin: Skin color, texture, turgor normal, no rashes or lesions Labs and Imaging Studies Labs: CBC: Recent Labs 11/17/19 0322 11/18/19 0332 11/19/19 0353 WBC 12.4* 9.3 9.0 HGB 8.8* 8.6* 9.0* HCT 26.6* 25.8* 27.0* MCV 93.7 93.1 93.1 PLT 402 390 381 BMP: Recent Labs 11/17/19 0322 11/18/19 0332 11/19/19 0353 NA 136 136 132* K 3.8 3.5 3.1* CL 114* 114* 106 CO2 14* 17* 20* PHOS 3.5 2.4* 2.7 BUN 28* 20 12 CREATININE 0.65 0.48* 0.40* Magnesium: Lab Results Component Value Date MG 1.6 11/19/2019 Phosphate: Lab Results Component Value Date PHOS 2.7 11/19/2019 PT/INR: Recent Labs 11/16/19 1051 PROTIME 11.4 INR 1.1 U/A: Lab Results Component Value Date LEUKOCYTESUR 250 10/31/2019 WBCUA 11-25 10/31/2019 RBCUA 51-100 10/31/2019 BACTERIA Few 10/31/2019 GLUCOSEU Normal 10/31/2019 Urine Culture: Component Value Date/Time LABURIN No growth (<1,000 CFU/ml). 10/31/20192026 Imaging Studies: CT A/P w IV/PO contrast 11/16 IMPRESSION: 1. Although there is persistent dilatation of small bowel loops, many of which contain contrast, there is also gaseous distention of the transverse colon. Although distal small bowel obstruction remains in consideration, ileus is alternatively considered. 2. Ureteral diversion with ostomy in the right lower quadrant again noted without hydronephrosis 3. Free intraperitoneal fluid again noted. 4. Peritoneal catheter in the the left side of the abdomen with its tip in the right-sided pelvis has been removed and the subcutaneous gas has resolved since 12 days ago Assessment and Plan ASSESMENT: 64 y.o. female with recent cystectomy who returns with abdominal pain and concern for recurrent SBO(resolved) PLAN: - Patient feels better today, passing flatus and BM. Advance to Soft GI. - Labs overall stable, Hgb 9 (8.6) (8.8) (8.7) (7.5) s/p tranfusion - Hopefully able to discharge soon if tolerating diet Matteo Layne, PGY-3 11/19/2019 6:48 AM For questions/concerns please page liquefaction supervisor Urology resident * Elma Carnes MD - 11/18/2019 12:07 PM EDT Hospitalist Progress Note 11/18/2019 12:07 PM [phone]: Please page me for patient care issues. [phone]: Please page [facility] night Hospitalist for any issues. Subjective: Admit Date: 11/16/2019 PCP: BEATRICE IRAHETA Room#: [id number] Interval History: Patient seen and examined.I was wearing N95 mask throughout the encounter No new event overnight, passing flatus, no bowel movement, no fever, chills, nausea, emesis. Tolerated full liquids for breakfast this morning well DIET FULL LIQUID; Patient Vitals for the past 96 hrs (Last 3 readings): Weight 11/18/19 0545 117 lb 3.2 oz (53.2 kg) 11/17/19 0600 118 lb (53.5 kg) 11/16/19 0544 117 lb 9.6 oz (53.3 kg) Intake/Output Summary (Last 24 hours) at 11/18/2019 1207 Last data filed at 11/18/2019 0559 Gross per 24 hour Intake 1150 ml Output 1975 ml Net -825 ml LABS: CBC: Recent Labs 11/16/19 0350 11/16/19 2149 11/17/19 0322 11/18/19 0332 WBC 18.2* -- -- 12.4* 9.3 RBC 2.34* -- -- 2.84* 2.77* HGB 7.0* < > 8.7* 8.8* 8.6* HCT 22.9* < > 26.8* 26.6* 25.8* MCV 97.7 -- -- 93.7 93.1 RDW 16.2* -- -- 15.1* 15.4* PLT 453* -- -- 402 390 < > = values in this interval not displayed. BMP: Recent Labs 11/16/19 03511/17/1932111/18/19 0332 NA 131* 136 136 K 5.0 3.8 3.5 CL 109* 114* 114* CO2 11* 14* 17* BUN 43* 28* 20 CREATININE 0.97 0.65 0.48* GLUCOSE 79 81 77 CALCIUM 8.3* 8.4 8.4 ANIONGAP 11 9 5 LIVER PROFILE: Recent Labs 11/16/19 0350 AST 33 ALT 72* BILITOT 0.6 ALKPHOS 176* LABALBU 2.5* PROT 5.0* PT/INR: Recent Labs 11/16/19 1051 PROTIME 11.4 INR 1.1 CARDIAC ENZYMES: Recent Labs 11/16/19 0350 11/16/19 1051 11/16/19 1722 TROPONINI <0.012 <0.012 <0.012 Procalcitonin: Lab Results Component Value Date PROCAL 0.62 11/16/2019 PROCAL 0.67 11/16/2019 Objective: Vitals: BP (!) 141/75 Pulse 88 Temp 99.3 F (37.4 C) (Temporal) Resp 16 Wt 117 lb 3.2 oz (53.2 kg) SpO2 94% BMI 19.81 kg/m Pulse Ox: SpO2 Av.2 % Min: 92 % Max: 97 % Supplemental O2: General appearance: No apparent distress,awake alert HEENT: Eyes: No scleral icterus,No pallor Oral: Tongue is semi-moist Cardiovascular: S1S2 heard, RRR Respiratory: Clear to auscultation bilaterally Abdomen: Soft, moderately distended, mild generalized tenderness with sluggish bowel sounds. Musculoskeletal: No obvious deformities seen Skin: No visible rashes or lesions. Neurology- no focal neurological deficits Extremity- no peripheral edema both lower extremities Assessment Active Problems -Small bowel obstruction. -Acute blood loss anemia. -Intra-abdominal hematoma. -Leukocytosis-improving -Bladder cancer, status post robotic cystectomy,ileal conduit on 10/28/19 -sinus tachycardia. -COPD not in exacerbation Plan -N.p.o., bowel rest, IV hydration. IV Zosyn. -Gen. surgery consulted. CT abdomen, pelvis-reviewed -s/p 1 unit of PRBC, hemoglobin 8.6 today. Monitor complete blood count in a.m. - Consulted urology-noted Recs -on IV metoprolol for tachycardia, change to p.o. -IV Pepcid On SCD hose, GI prophylaxis Labs ordered for AM Patient was informed about all work up and treatment plan Discussed with nursing staff Advance Directive: Full Code Discharge planning: Home pending diet toleration ELMA CARNES MD Division of Hospitalist Medicine Inpatient Medical Services * Fernanda Franklin DTR - 11/18/2019 9:19 AM EDT Nutrition rescreen completed. Chart reviewed. Patient to be monitored and followed by the diet psychiatric technician. * Evelin Brennan DO - 11/18/2019 6:54 AM EDT Department of Surgery Progress Note PATIENT NAME: Linda Kim : 1955 ATTENDING PHYSICIAN: Tena Alvarado MD ADMIT DATE: 11/16/2019 TODAY'S DATE: 11/18/2019 SUBJECTIVE Patient is doing well. Pain is well controlled on current medications. Patient denies nausea, denies vomiting, reports flatus, reports small bowel movement yesterday PM, and is ambulating. OBJECTIVE VITALS: Patient Vitals for the past 24 hrs: BP Temp Temp src Pulse Resp SpO2 Weight 11/18/19 0545 117 lb 3.2 oz (53.2 kg) 11/18/19 0522 132/66 97.7 F (36.5 C) Temporal 87 18 92 % 11/18/19 0100 137/70 97.6 F (36.4 C) Temporal 87 20 95 % 11/17/19 2059 (!) 143/67 97.9 F (36.6 C) Temporal 95 16 93 % 11/17/19 1724 133/73 97.3 F (36.3 C) Temporal 97 15 94 % 11/17/19 1248 124/68 98.1 F (36.7 C) Oral 105 18 97 % 11/17/19 0810 136/67 97.7 F (36.5 C) Oral 111 18 95 % PHYSICAL EXAM: CONSTITUTIONAL: NAD, Resting in bed CHEST: Resp effort easy and unlabored ABDOMEN: soft, non-distended, non-tender, ileal conduit - pink/clean EXT: extremities normal, atraumatic, no cyanosis or edema INTAKE/OUTPUT: Date 11/18/19 0000 - 11/18/19 2359 Shift 3749-2066 8185-8237 1557-5619 24 Hour Total INTAKE Shift Total(mL/kg) OUTPUT Urine(mL/kg/hr) 800 800 Shift Total(mL/kg) 800(15) 800(15) Weight (kg) 53.2 53.2 53.2 53.2 I/O last 3 completed shifts: In: 1250 [P.O.:200; I.V.:1000; IV Piggyback:50] Out: 3175 [Urine:3175] I/O this shift: In: - Out: 800 [Urine:800] Data CBC: Recent Labs 11/16/19 0350 11/16/19 2149 11/17/19 0322 11/18/19 0332 WBC 18.2* -- -- 12.4* 9.3 HGB 7.0* < > 8.7* 8.8* 8.6* HCT 22.9* < > 26.8* 26.6* 25.8* PLT 453* -- -- 402 390 < > = values in this interval not displayed. BMP: Recent Labs 11/16/19 0350 11/17/19 0322 11/18/19 0332 NA 131* 136 136 K 5.0 3.8 3.5 CL 109* 114* 114* CO2 11* 14* 17* BUN 43* 28* 20 CREATININE 0.97 0.65 0.48* GLUCOSE 79 81 77 HEPATIC: Recent Labs 11/16/19 0350 ALKPHOS 176* ALT 72* AST 33 PROT 5.0* BILITOT 0.6 LABALBU 2.5* Current Inpatient Medications Current Facility-Administered Medications: lactated ringers infusion, , Intravenous, Continuous famotidine (PEPCID) injection 20 mg, 20 mg, Intravenous, BID metoprolol (LOPRESSOR) injection 5 mg, 5 mg, Intravenous, Q8H sodium chloride flush 0.9 % injection 10 mL, 10 mL, Intravenous, 2 times per day sodium chloride flush 0.9 % injection 10 mL, 10 mL, Intravenous, PRN acetaminophen (TYLENOL) tablet 650 mg, 650 mg, Oral, Q6H PRN OR acetaminophen (TYLENOL) suppository 650 mg, 650 mg, Rectal, Q6H PRN promethazine (PHENERGAN) tablet 12.5 mg, 12.5 mg, Oral, Q6H PRN OR ondansetron (ZOFRAN) injection 4 mg, 4 mg, Intravenous, Q6H PRN [Held by provider] enoxaparin (LOVENOX) injection 40 mg, 40 mg, Subcutaneous, Daily bisacodyl (DULCOLAX) suppository 10 mg, 10 mg, Rectal, Daily PRN morphine sulfate (PF) injection 2 mg, 2 mg, Intravenous, Q4H PRN piperacillin-tazobactam (ZOSYN) 3.375 g in dextrose 50 mL IVPB extended infusion (premix), 3.375 g,Intravenous, Q8H albuterol sulfate HFA 108 (90 Base) MCG/ACT inhaler 2 puff, 2 puff, Inhalation, Q6H PRN tiotropium (SPIRIVA) inhalation capsule 18 mcg, 18 mcg, Inhalation, Daily iopamidol (ISOVUE-370) 76 % injection 75 mL, 75 mL, Intravenous, ONCE PRN diatrizoate meglumine-sodium (GASTROGRAFIN) 66-10 % solution 30 mL, 30 mL, Oral, ONCE PRN ASSESSMENT & PLAN 64 y/o F s/p robotic cystectomy 10/27 complicated by SBO s/p laparoscopic enterolysis 11/07 who presents back with abdominal pain, likely secondary to ileus ? Abdominal pain improved, passing flatus and having small BM. CT A/P from 11/16 reviewed and hematoma resolving and contrast into descending colon, SB dilation likely secondary to ileus. Likely ok tostart CLD/FLD. Keep on miralax BID. ? Encourage OOB, ambulation, IS ? Continue IVF until tolerating PO well ? Urology following, recs reviewed ? [facility] Dr. Neil Pager:[phone] If unable to reach pager, please call [phone] Associated attestation - Ruben Neil MD - 11/18/2019 5:58 PM EDT [facility] - Surgery [facility] Physicians Surgery Patient Name: Linda Kim Date: 11/18/19 Feels better, passing flatus and having BM. BP (!) 150/71 Pulse 91 Temp 98.5 F (36.9 C) (Temporal) Resp 20 Wt 117 lb 3.2 oz (53.2 kg) SpO2 94% BMI 19.81 kg/m CBC: Recent Labs 11/16/19 0350 11/16/19214811/17/1932111/18/19 0332 WBC 18.2* -- -- 12.4* 9.3 HGB 7.0* < > 8.7* 8.8* 8.6* HCT 22.9* < > 26.8* 26.6* 25.8* PLT 453* -- -- 402 390 < > = values in this interval not displayed. BMP: Recent Labs 11/16/19 0350 11/17/19 0322 11/18/19 0332 NA 131* 136 136 K 5.0 3.8 3.5 CL 109* 114* 114* CO2 11* 14* 17* BUN 43* 28* 20 CREATININE 0.97 0.65 0.48* GLUCOSE 79 81 77 Hepatic: Recent Labs 11/16/19 0350 ALKPHOS 176* ALT 72* AST 33 PROT 5.0* BILITOT 0.6 LABALBU 2.5* Abdomen: Soft, nontender, sl. distended. Plan: Ileus, resolving D/c NGT Trial liquids DVT prophylaxis I personally supervised my Resident/Surgical Fellow in the evaluation and management of Linda Kim in the development of a treatment plan for this patient. I personally interviewed the patient and performed an individual physical examination. In addition, I discussed the patient's condition and treatment options with them. I have also reviewed and agree with the past medical, family and social history and care plan unless otherwise noted. All of the patient's questions were answered. * Didier Coffey MD - 11/18/2019 6:46 AM EDT UROLOGY PROGRESS NOTE PATIENT NAME: Linda Kim DATE OF : 1955 ADMISSION DATE: 11/16/2019 2:55 AM TODAY'S DATE: 11/18/2019 Subjective No acute events overnight. Afebrile. No nausea or vomiting. Ileal conduit draining well Passing flatus with BM late yesterday States abdominal pain improved Objective VS: BP 132/66 Pulse 87 Temp 97.7 F (36.5 C) (Temporal) Resp 18 Wt 117 lb 3.2 oz (53.2 kg) SpO2 92% BMI 19.81 kg/m Vitals: 11/18/19 0522 BP: 132/66 Pulse: 87 Resp: 18 Temp: 97.7 F (36.5 C) SpO2: 92% I & O - 24hr: Intake/Output Summary (Last 24 hours) at 11/18/2019 0647 Last data filed at 11/18/2019 0559 Gross per 24 hour Intake 1250 ml Output 1975 ml Net -725 ml Physical Exam: General: Neck: Resp: Abdomen: No acute distress Supple Normal effort Soft, non-tender, mildly distended, incisions healing well, some ecchymosis around incision sites : ileal conduit with mucus overlying Skin: Skin color, texture, turgor normal, no rashes or lesions Labs and Imaging Studies Labs: CBC: Recent Labs 11/16/19 0350 11/16/19 2149 11/17/1932111/18/19 0332 WBC 18.2* -- -- 12.4* 9.3 HGB 7.0* < > 8.7* 8.8* 8.6* HCT 22.9* < > 26.8* 26.6* 25.8* MCV 97.7 -- -- 93.7 93.1 PLT 453* -- -- 402 390 < > = values in this interval not displayed. BMP: Recent Labs 11/16/19 0350 11/17/1932111/18/19331 NA 131* 136 136 K 5.0 3.8 3.5 CL 109* 114* 114* CO2 11* 14* 17* PHOS -- 3.5 2.4* BUN 43* 28* 20 CREATININE 0.97 0.65 0.48* Magnesium: Lab Results Component Value Date MG 1.9 11/18/2019 Phosphate: Lab Results Component Value Date PHOS 2.4 11/18/2019 PT/INR: Recent Labs 11/16/19 1051 PROTIME 11.4 INR 1.1 U/A: Lab Results Component Value Date LEUKOCYTESUR 250 10/31/2019 WBCUA 11-25 10/31/2019 RBCUA 51-100 10/31/2019 BACTERIA Few 10/31/2019 GLUCOSEU Normal 10/31/2019 Urine Culture: Component Value Date/Time LABURIN No growth (<1,000 CFU/ml). 10/31/20192026 Imaging Studies: CT A/P w IV/PO contrast 11/16 IMPRESSION: 1. Although there is persistent dilatation of small bowel loops, many of which contain contrast, there is also gaseous distention of the transverse colon. Although distal small bowel obstruction remains in consideration, ileus is alternatively considered. 2. Ureteral diversion with ostomy in the right lower quadrant again noted without hydronephrosis 3. Free intraperitoneal fluid again noted. 4. Peritoneal catheter in the the left side of the abdomen with its tip in the right-sided pelvis has been removed and the subcutaneous gas has resolved since 12 days ago Assessment and Plan ASSESMENT: 64 y.o. female with recent cystectomy who returns with abdominal pain and concern for recurrent SBO PLAN: - CT demonstrates contrast reaching transverse colon with persistent dilated bowel loops - Patient feels better today, passing flatus with small BM yesterday, possibly advance diet from NPO per GS - Labs overall stable, Hgb 8.6 (8.8) (8.7) (7.5) s/p tranfusion - Will follow Jeremy Queen, PGY-4 11/18/2019 6:47 AM For questions/concerns please page liquefaction supervisor Urology resident Patient was seen and evaluated. The history and physical has been reviewed. The pertinent findings from the history of present illness, past medical history, family history, social history, review of systems, and physical exam havebeen noted and confirmed that are unchanged. Discussed with the urology resident. Agree with assessment and plan Patient feels much better. Abd soft NT. Stoma healthy. Diet per Gen Surg * Elma Carnes MD - 11/17/2019 11:53 AM EDT Hospitalist Progress Note 11/17/2019 11:53 AM [phone]: Please page me for patient care issues. [phone]: Please page IMS night Hospitalist for any issues. Subjective: Admit Date: 11/16/2019 PCP: BEATRICE IRAHETA Room#: [id number] Interval History: Patient seen and examined.I was wearing N95 mask throughout the encounter No new event overnight, passing flatus, no bowel movement, no fever, chills, nausea, emesis. Diet NPO Effective Now Patient Vitals for the past 96 hrs (Last 3 readings): Weight 11/17/19 0600 118 lb (53.5 kg) 11/16/19 0544 117 lb 9.6 oz (53.3 kg) Intake/Output Summary (Last 24 hours) at 11/17/2019 1153 Last data filed at 11/17/2019 1131 Gross per 24 hour Intake 1645.17 ml Output 2800 ml Net -1154.83 ml LABS: CBC: Recent Labs 11/16/19 0350 11/16/19 1722 11/16/19 2149 11/17/19 0322 WBC 18.2* -- -- 12.4* RBC 2.34* -- -- 2.84* HGB 7.0* 7.5* 8.7* 8.8* HCT 22.9* 23.4* 26.8* 26.6* MCV 97.7 -- -- 93.7 RDW 16.2* -- -- 15.1* PLT 453* -- -- 402 BMP: Recent Labs 11/16/19 0350 11/17/19 0322 NA 131* 136 K 5.0 3.8 CL 109* 114* CO2 11* 14* BUN 43* 28* CREATININE 0.97 0.65 GLUCOSE 79 81 CALCIUM 8.3* 8.4 ANIONGAP 11 9 LIVER PROFILE: Recent Labs 11/16/19 035 AST 33 ALT 72* BILITOT 0.6 ALKPHOS 176* LABALBU 2.5* PROT 5.0* PT/INR: Recent Labs 11/16/19 1051 PROTIME 11.4 INR 1.1 CARDIAC ENZYMES: Recent Labs 11/16/19 0350 11/16/19 1051 11/16/19 1722 TROPONINI <0.012 <0.012 <0.012 Procalcitonin: Lab Results Component Value Date PROCAL 0.62 11/16/2019 PROCAL 0.67 11/16/2019 Objective: Vitals: BP 136/67 Pulse 111 Temp 97.7 F (36.5 C) (Oral) Resp 18 Wt 118 lb (53.5 kg) SpO2 95% BMI 19.94 kg/m Pulse Ox: SpO2 Av.5 % Min: 95 % Max: 97 % Supplemental O2: General appearance: No apparent distress,awake alert HEENT: Eyes: No scleral icterus,No pallor Oral: Tongue is semi-moist Cardiovascular: S1S2 heard, RRR Respiratory: Clear to auscultation bilaterally Abdomen: Soft, moderately distended, mild generalized tenderness with sluggish bowel sounds. Musculoskeletal: No obvious deformities seen Skin: No visible rashes or lesions. Neurology- no focal neurological deficits Extremity- no peripheral edema both lower extremities Assessment Active Problems -Small bowel obstruction. -Acute blood loss anemia. -Intra-abdominal hematoma. -Leukocytosis -Bladder cancer, status post robotic cystectomy,ileal conduit on 10/28/19 -sinus tachycardia. -COPD not in exacerbation Plan -N.p.o., bowel rest, IV hydration. IV Zosyn. -white blood count improving -Gen. surgery consulted. CT abdomen, pelvis-pending -s/p 1 unit of PRBC, hemoglobin 8.8 today. - consulted urology-noted Recs -on IV metoprolol for tachycardia, increase to q 8 hrs -IV Pepcid - Resume home medications when able to tolerate p.o On SCD hose, GI prophylaxis Labs ordered for AM Patient was informed about all work up and treatment plan Discussed with nursing staff Advance Directive: Full Code Discharge planning: ELMA CARNES MD Division of Hospitalist Medicine Inpatient Medical Services documented in this encounter* Myesha Barrera RN - 05/25/2020 12:30 PM EST Labs obtained on firstattempt with 22gauge needle at right acsite. Patient tolerated well, site benign. By Kayla barrera R.N. documented in this encounter* Jennifer Chow RN - 06/11/2020 2:55 PM EST Surgeon at bedside to speak with pt and family. * Jennifer Chow RN - 06/11/2020 2:40 PM EST Discharge information given to the patient. Patient and family verbalized understanding of information. All questions were answered before discharge. Patient ambulated, denies dizziness or nausea. Tolerating PO fluids and crackers. Vital signs are stable. Patient has changed and is being discharged home in a wheelchair with valuables. * Jennifer Chow RN - 06/11/2020 2:05 PM EST Family at bedside. Pt mona coffee and crax without diff. NAD documented in this encounter Advance Directives No Advanced Directives Records FoundDocuments on File Type Date Recorded Patient Business Unit Leader Expl anation Advance Directives and Living Will Power of Trains Dispatcher Supervisor Latest Code Status on File Code Status Date Activated Date Inactivated Comments Full Code 06/17/2019 5:38 AM 06/17/2019 1:52 PM Latest Code Status on File Code Status Date Activated Date Inactivated Comments Full Code 10/28/2019 3:45 PM Full Code 10/28/2019 5:48 AM 10/28/2019 3:10 PM Full Code 06/17/2019 5:38 AM 06/17/2019 1:52 PM Latest Code Status on File Code Status Date Activated Date Inactivated Comments Full Code 11/16/2019 3:07 AM Full Code 10/28/2019 3:45 PM 11/12/2019 3:20 PM Documents on File Type Date Recorded Patient Business Unit Leader Expl anation ACP-Advance Directive ACP-Power of Trains Dispatcher Supervisor Latest Code Status on File Code Status Date Activated Date Inactivated Comments Full Code 11/16/2019 3:07 AM 11/20/2019 4:05 PM Latest Code Status on File Code Status Date Activated Date Inactivated Comments Full Code 06/11/2020 7:45 AM Full Code 11/16/2019 3:07 AM 11/20/2019 4:05 PM Latest Code Status on File Code Status Date Activated Date Inactivated Comments Full Code 10/28/2020 4:43 AM Full Code 06/11/2020 7:45 AM 06/11/2020 6:05 PM Latest Code Status on File Code Status Date Activated Date Inactivated Comments Full Code 01/01/2021 5:12 AM Full Code 10/28/2020 4:43 AM 11/03/2020 2:57 PM Latest Code Status on File Code Status Date Activated Date Inactivated Comments Full Code 06/17/2019 5:38 AM Latest Code Status on File Code Status Date Activated Date Inactivated Comments Full Code 01/01/2021 5:12 AM 01/04/2021 1:58 PM Latest Code Status on File Code Status Date Activated Date Inactivated Comments Full Code 12/20/2021 8:14 AM Full Code 01/01/2021 5:12 AM 01/04/2021 1:58 PM Hospital Course * Walker Cruz, DO - 11/12/2019 11:10 AM EDT Discharge Summary Linda Kim : 1955 ADMIT DATE: 10/28/2019 DISCHARGE DATE: 11/12/2019 PRIMARY CARE PHYSICIAN: BEATRICE IRAHETA VISIT STATUS: Admission CODE STATUS: Full Code DISCHARGE DIAGNOSES: Principal Problem: Malignant neoplasm of urinary bladder (HCC) Active Problems: Tachycardia Leukocytosis VICTOR HUGO (acute kidney injury) (HCC) SIRS (systemic inflammatory response syndrome) (HCC) Hypoxia Postoperative anemia due to acute blood loss Ileus (HCC) Bilateral pleural effusion Peritoneal bleeding Vaginal bleeding Severe malnutrition (HCC) Volume depletion Hyperphosphatemia Small bowel obstruction (HCC) Hypokalemia Resolved Problems: * No resolved hospital problems. * HOSPITAL COURSE: Linda Kim is a 64 y.o. female who presented on 10/28/2019 for robotic cystectomy. Patient had complicated post-op course and did develop a SBO that required operative intervention with diagnostic lap. Patient had a kink in her bowel 2/2 blood clot in the pelvis. Following surgery, patient did have BMs, flatus and was discharged home with 2 weeks of LVX. She was discharged on 11/12/2019 with pain controlled on PO pain meds, tolerating a diet, and with normal bowel function. CONSULTANTS: General surgery, nephrology, medicine DISCHARGE MEDICATIONS: Linda Kim Home Medication Instructions BRIANNA:[id number] Printed on:11/12/19 1110 Medication Information albuterol sulfate HFA (PROAIR HFA) 108 (90 Base) MCG/ACT inhaler Inhale 2 puffs into the lungs every 6 hours as needed for Wheezing docusate sodium (COLACE) 100 MG capsule Take 1 capsule by mouth 3 times daily as needed for Constipation enoxaparin (LOVENOX) 30 MG/0.3ML injection Inject 0.3 mLs into the skin 2 times daily for 14 days ibuprofen (ADVIL;MOTRIN) 600 MG tablet Take 1 tablet by mouth 4 times daily as needed for Pain metoprolol tartrate (LOPRESSOR) 25 MG tablet Take 1 tablet by mouth 2 times daily Misc. Devices (SITZ BATH) MISC 1 Device by Does not apply route 2 times daily as needed (vulvar irritation) traMADol (ULTRAM) 50 MG tablet Take 1 tablet by mouth every 6 hours as needed for Pain for up to 5 days. Intended supply: 3 days. Take lowest dose possible to manage pain Umeclidinium Durand (INCRUSE ELLIPTA) 62.5 MCG/INH AEPB Inhale 1 puff into the lungs daily DIET: DIET GENERAL; ACTIVITY: up with assist SIGNIFICANT DIAGNOSTIC STUDIES: See epic COMPLEXITY OF FOLLOW UP: [] Moderate Complexity: follow up within 7-14 calendar days (73210) [] Severe Complexity: follow up within 7 calendar days ([id number]) DISPOSITION: home Follow up with Dr. Finn in the office. SIGNED: Walker Cruz DO 11/12/2019, 11:10 AM documented in this encounter Assessments Diagnosis Bladder 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 Malignant neoplasm of urinary bladder (HCC) Malignant neoplasm of bladder, part unspecified Tachycardia Tachycardia, unspecified Leukocytosis Leukocytosis, unspecified VICTOR HUGO (acute kidney injury) (HCC) Acute kidney failure, unspecified SIRS (systemic inflammatory response syndrome) (HCC) Systemic inflammatory response syndrome, unspecified Hypoxia Hypoxemia Postoperative anemia due to acute blood loss Acute posthemorrhagic anemia Ileus (HCC) Paralytic ileus Bilateral pleural effusion Unspecified pleural effusion Peritoneal bleeding Hemoperitoneum (nontraumatic) Vaginal bleeding Other specified noninflammatory disorder of vagina Severe malnutrition (HCC) Nutritional marasmus Volume depletion Volume depletion, unspecified Hyperphosphatemia Disorders of phosphorus metabolism Small bowel obstruction (HCC) Unspecified intestinal obstruction Hypokalemia Hypopotassemia Diagnosis SBO (small bowel obstruction) (HCC) Unspecified intestinal obstruction Diagnosis 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, unspecified Summary Purpose Family History No Family History Records FoundNo Family History Records FoundNo Family History Records FoundNo Family History Records FoundNo Family History Records Found Additional Source Comments Reason for Visit (unrecogniz ed section and content) Reason Comments Reason Comments Abdominal Pain patient transferred from [facility] for small obstruction, Abd pain and nausea started at 11am today Reason Comments Kidney Stones Reason Comments Results Ordered Prescriptions (unrec ognized section and content) Prescription Sig Dispensed Refills Start Date End Da te oxyCODONE-acetaminophen (PERCOCET) 5-325 MG per tabletIndications:AIN III (anal intraepithelial neoplasia III) Take 1 tablet by mouth every 6 hours as needed for Pain for up to 7 days. Intended supply: 7 days. Take lowest dose possible to manage pain 28 tablet 0 06/11/2020 06/18/2020 Prescription Sig Dispensed Refills Start Date End Da te ondansetron (ZOFRAN) 4 MG tablet Take 1 tablet by mouth 3 times daily as needed for Nausea or Vomiting 15 tablet 0 11/03/2020 oxyCODONE-acetaminophen (PERCOCET) 5-325 MG per tabletIndications:SBO (small bowel obstruction) ([facility]) Take 1 tablet by mouth every 6 hours as needed for Pain for up to 3 days. Intended supply: 7 days. Take lowest dose possible to manage pain 28 tablet 0 11/03/2020 11/06/2020 polyethylene glycol (GLYCOLAX) 17 GM/SCOOP powder Take 17 g by mouth daily 510 g 0 11/03/2020 12/03/2020 Prescription Sig Dispensed Refills Start Date End Da te docusate sodium (COLACE, DULCOLAX) 100 MG CAPS Take 100 mg by mouth 2 times daily 60 capsule 0 01/04/2021 02/03/2021 Prescription Sig Dispensed Refills Start Date End Da te oxyCODONE-acetaminophen (PERCOCET) 5-325 MG per tabletIndications:Post-o p pain Take 1 tablet by mouth every 6 hours as needed for Pain for up to 7 days. Intended supply: 7 days. Take lowest dose possible to manage pain 28 tablet 0 12/20/2021 12/27/2021 ibuprofen (ADVIL;MOTRIN) 600 MG tablet Take 1 tablet by mouth 4 times daily as needed for Pain 60 tablet 0 12/20/2021 Scheduled Active and Recently Administ ered Medications (unrecognized section and content) Medication Order 11/01/2020 11/02/2020 11/03/2020 enoxaparin (LOVENOX) injection 40 mg 40 mg, Subcutaneous, DAILY, First dose on Mon10/28/20 at 0900 0845 (Given - Provider: Jackie Marshall RN) 0943 (Given - Provider: Yadira Owusu RN) 1000 (Not Given - Provider: Raquel Clinton RN - Reason: Patient/family refused) lactated ringers bolus 500 mL, Intravenous, at 500 mL/hr, Administer over 1 Hours, ONCE, On Mon10/30/20 at 2200, For 1 dose, Timed magnesium oxide (MAG-OX) tablet 400 mg 400 mg, Oral, 2 TIMES DAILY, First dose on Mon11/03/20 at 0900, For 2 days 0959 (Given - Provider: Raquel Clinton, MAURICIO)2100 (Due) magnesium sulfate 4000 mg in 100 mL IVPB premix (COMPLETED) 4,000 mg, Intravenous, at 25 mL/hr, Administer over 4 Hours, ONCE, On 11/02/20 at 0630, For 1 dose, Recommended infusion rate not to exceed 1,000 mg (milligrams) per hour. 0944 (New Bag - Provider: Yadira Owusu RN)1407 (Stopped - Provider: Yadira Owusu RN) metoclopramide (REGLAN) injection 10 mg 10 mg, Intravenous, EVERY 6 HOURS, First dose on Jeanette 10/29/20 at 1700 0001 (Given - Provider: Zora Almanza RN)0430 (Given - Provider: Zora Almanza RN)1151 (Given - Provider: Jackie Marshall RN)1633 (Given - Provider: Jackie Marshall RN) 0021 (Given - Provider: Zora Almanza RN)0530 (Given - Provider: Zora Almanza RN)1148 (Given - Provider: Yadira Owusu RN)1716 (Given - Provider: Yadira Owusu RN)2203 (Given - Provider: Stephanie Cardenas RN) 0553 (Given - Provider: Stephanie Cardenas, MAURICIO)1100 (Due - Provider: Jesusita Marcos RN)1700 (Due - Provider: Jesusita Marcos RN)2300 (Due - Provider: Jesusita Marcos RN) polyethylene glycol (GLYCOLAX) packet 17 g 17 g, Oral, DAILY, First dose (after last modification) on Mon10/30/20 at 2030 0844 (Not Given - Provider: Jackie Marshall RN - Reason: Pt NPO) 0943 (Given - Provider: Yadira Owusu RN) 0958 (Not Given - Provider: Raquel Clinton RN - Reason: Patient/family refused - Comment: pt waiting to take at home due to long drive.) sodium chloride flush 0.9 % injection 5-40 mL 5-40 mL, Intravenous, EVERY 12 HOURS SCHEDULED (2 times per day), First dose on Mon10/28/20 at 0900, For Line Patency: Peripheral IV = 5 mL; Midline or Central Line = 10 mL/lumen. If following IV push medication, administer flush at same rate as the IV push. Flush volume is determined by type of infusion therapy being given. For non-viscous solutions use: Peripheral IV = 5 mL Midline or Central Line = 10 mL/lumen For viscous solutions (i.e. blood components, parenteral nutrition, contrast media, or after obtaining blood sample) use: Peripheral IV = 10 mL Midline or Central Line = 20 mL/lumen 0849 (Not Given - Provider: Jackie Marshall, MAURICIO - Reason: IV Fluid Infusing)1932 (Not Given - Provider: Zora Almanza RN - Reason: IV Fluid Infusing) 0946 (Given - Provider: Yadira Owusu RN)2202 (Not Given - Provider: Stephanie Cardenas RN - Reason: IV Fluid Infusing) 0958 (Not Given - Provider: Raquel Clinton RN - Reason: IV Fluid Infusing)2100 (Due - Provider: Jesusita Marcos RN) Continuous Medication Order 11/01/2020 11/02/2020 11/03/2020 dextrose 5 % and 0.45 % NaCl with KCl 20 mEq infusion (CANCELED) Intravenous, at 50 mL/hr, CONTINUOUS, Starting on Mon10/30/20 at 2030 1159 (New Bag - Provider: Jackie Marshall, MAURICIO) 1500 (Rate/Dose Change - Provider: Yadira Owusu RN)1716 (New Bag - Provider: Yadira Owusu RN) 0958 (Stopped - Provider: Raquel Clinton RN) PRN Medication Order 11/01/2020 11/02/2020 11/03/2020 0.9 % sodium chloride infusion 25 mL, Intravenous, at 100 mL/hr, PRN, If patient receiving piggyback infusions without ordered maintenance IV fluids or with frequent/long duration piggyback infusions, Starting on Mon10/28/20 at 0439, Administer at the same rate as the piggyback being infused. hydrALAZINE (APRESOLINE) injection 10 mg 10 mg, Intravenous, EVERY 6 HOURS PRN, High Blood Pressure, for SBP>160, hold for HR>105, second line, Starting on Jeanette 10/29/20 at 1837 labetalol (NORMODYNE;TRANDATE) injection 10 mg 10 mg, Intravenous, EVERY 6 HOURS PRN, High Blood Pressure, for SBP>160, hold for HR<60, first line, Starting on Jeanette 10/29/20 at 1837 morphine sulfate (PF) injection 2 mg(Linked Group 1) 2 mg, Intravenous, EVERY 2 HOURS PRN, Pain Moderate (4-6), Starting on Mon10/30/20 at 2006, If oral and IV narcotics ordered, use oral first and only use IV if oral is ineffective or cannot take oral. Do Not give oral and IV within 1 hour of each other unless specifically ordered. 0002 (See Alternative - Provider: Zora Almanza RN)0845 (See Alternative - Provider: Jackie Marshall RN)1249 (See Alternative - Provider: Jackie Marshall RN)1634 (See Alternative - Provider: Jackie Marshall RN) 0021 (See Alternative - Provider: Zora Almanza RN)0944 (See Alternative - Provider: Yadira Owusu RN)1716 (See Alternative - Provider: Yadira Owusu RN) 0006 (See Alternative - Provider: Stephanie Cardenas RN) morphine sulfate (PF) injection 4 mg(Linked Group 1) 4 mg, Intravenous, EVERY 2 HOURS PRN, Pain Severe (7-10), Starting on Mon10/30/20 at 2005, If oral and IV narcotics ordered, use oral first and only use IV if oral is ineffective or cannot take oral. Do Not give oral and IV within 1 hour of each other unless specifically ordered. 0002 (Given - Provider: Zora Almanza RN)0845 (Given - Provider: Jackie Marshall RN)1249 (Given - Provider: Jackie Marshall RN)1634 (Given - Provider: Jackie Marshall RN) 0021 (Given - Provider: Zora Almanza RN)0944 (Given - Provider: Yadira Owusu RN)1716 (Given - Provider: Yadira Owusu RN) 0006 (Given - Provider: Stephanie Cardenas RN) ondansetron (ZOFRAN) injection 4 mg(Linked Group 2) 4 mg, Intravenous, EVERY 6 HOURS PRN, Nausea, Vomiting, Starting on Mon10/28/20 at 0439, Administer if oral route cannot be used. ondansetron (ZOFRAN-ODT) disintegrating tablet 4 mg(Linked Group 2) 4 mg, Oral, EVERY 8 HOURS PRN, Nausea, Vomiting, Starting on Mon10/28/20 at 0439 sodium chloride flush 0.9 % injection 5-40 mL 5-40 mL, Intravenous, PRN, Line Care, After every IV line use, Starting on Mon10/28/20 at 0439, For Line Patency: Peripheral IV = 5 mL; Midline or Central Line = 10 mL/lumen. If following IV push medication, administer flush at same rate as the IV push. Flush volume is determined by type of infusion therapy being given. For non-viscous solutions use: Peripheral IV = 5 mL Midline or Central Line = 10 mL/lumen For viscous solutions (i.e. blood components, parenteral nutrition, contrast media, or after obtaining blood sample) use: Peripheral IV = 10 mL Midline or Central Line = 20 mL/lumen Linked Groups Order Group 1: morphine sulfate (PF) injection 2 mgJump to med 2 mg, Intravenous, EVERY 2 HOURS PRN, Pain Moderate (4-6), Starting on Mon10/30/20 at 2005
If oral and IV narcotics ordered, use oral first and only use IV if oral is ineffective or cannot take oral. Do Not give oral and IV within 1 hour of each other unless specifically ordered.
Or morphine sulfate (PF) injection 4 mgJump to med 4 mg, Intravenous, EVERY 2 HOURS PRN, Pain Severe (7-10), Starting on Mon10/30/20 at 2005
If oral and IV narcotics ordered, use oral first and only use IV if oral is ineffective or cannot take oral. Do Not give oral and IV within 1 hour of each other unless specifically ordered.
Group 2: ondansetron (ZOFRAN-ODT) disintegrating tablet 4 mgJump to med 4 mg, Oral, EVERY 8 HOURS PRN, Nausea, Vomiting, Starting on Mon10/28/20 at 0439 Or ondansetron (ZOFRAN) injection 4 mgJump to med 4 mg, Intravenous, EVERY 6 HOURS PRN, Nausea, Vomiting, Starting on Mon10/28/20 at 0439
Administer if oral route cannot be used.
Scheduled Medication Order 01/02/2021 01/03/2021 01/04/2021 bisacodyl (DULCOLAX) suppository 10 mg 10 mg, Rectal, DAILY, First dose on Mon01/01/21 at 0900 0817 (Given - Provider: Lucy Fernandes RN) 0754 (Given - Provider: Lucy Fernandes RN) 0938 (Not Given - Provider: Addy Mitchell RN - Reason: Patient/family refused) docusate sodium (COLACE) capsule 100 mg 100 mg, Oral, 2 TIMES DAILY, First dose on Mon01/02/21 at 2100, Do not crush or break. 1939 (Given - Provider: Jose Zamora RN) 0754 (Given - Provider: Lucy Fernandes RN)1950 (Given - Provider: Jose Zamora RN) 0935 (Given - Provider: Addy Mitchell RN)2100 (Due) enoxaparin (LOVENOX) injection 40 mg 40 mg, Subcutaneous, DAILY, First dose on Mon01/01/21 at 0900 0817 (Given - Provider: Lucy Fernandes RN) 0753 (Given - Provider: Lucy Fernandes RN) 0934 (Given - Provider: Addy Mitchell RN) metoprolol (LOPRESSOR) injection 2.5 mg 2.5 mg, Intravenous, EVERY 6 HOURS, First dose on Mon01/01/21 at 0530 0050 (Given - Provider: Kathleen Elliott RN)0646 (Not Given - Provider: Kathleen Elliott RN - Reason: Other - Comment: given at [phone] (Given - Provider: Kathleen Elliott RN)1302 (Given - Provider: Lucy Fernandes RN)1853 (Given - Provider: Lucy Fernandes RN) 0029 (Given - Provider: Jose Zamora RN)0517 (Not Given - Provider: Lucy Fernandes RN - Reason: Other)1405 (Given - Provider: Lucy Fernandes RN)1824 (Given - Provider: Lucy Fernandes RN)2359 (Given - Provider: Jose Zamora RN) 0539 (Given - Provider: Jose Zamora RN)1245 (Due - Provider: Ernestina العلي [facility])1845 (Due - Provider: Ernestina العلي RPH) polyethylene glycol (GLYCOLAX) packet 17 g 17 g, Oral, 2 TIMES DAILY, First dose on Mon01/02/21 at 2100 1939 (Given - Provider: Jose Zamora RN) 0756 (Given - Provider: Lucy Fernandes RN)1950 (Given - Provider: Jose Zamora RN) 0935 (Given - Provider: Addy Mitchell RN)2100 (Due) sodium chloride flush 0.9 % injection 10 mL 10 mL, Intravenous, EVERY 12 HOURS SCHEDULED (2 times per day), First dose on Mon01/01/21 at 0900 0818 (Not Given - Provider: Lucy Fernandes RN - Reason: IV Fluid Infusing)1939 (Not Given - Provider: Jose Zamora RN - Reason: IV Fluid Infusing) 0753 (Given - Provider: Lucy Fernandes RN)1950 (Given - Provider: Jose Zamora RN) 0938 (Not Given - Provider: Addy Mitchell RN - Reason: Other - Comment: no iv)2100 (Due) Continuous Medication Order 01/02/2021 01/03/2021 01/04/2021 lactated ringers infusion (CANCELED) Intravenous, at 100 mL/hr, CONTINUOUS, Starting on Mon01/01/21 at 0315 0048 (New Bag - Provider: Kathleen Elliott RN)1942 (New Bag - Provider: Jose Zamora RN) 0517 (New Bag - Provider: Jose Zamora RN)1215 (Stopped - Provider: Lucy Fernandes RN) PRN Medication Order 01/02/2021 01/03/2021 01/04/2021 0.9 % sodium chloride infusion 25 mL, Intravenous, at 100 mL/hr, PRN, If patient receiving piggyback infusions without ordered maintenance IV fluids or with frequent/long duration piggyback infusions, Starting on Mon01/01/21 at 0511, Administer at the same rate as the piggyback being infused. morphine sulfate (PF) injection 2 mg(Linked Group 1) 2 mg, Intravenous, EVERY 2 HOURS PRN, Pain Moderate (4-6), Starting on Mon01/01/21 at 0306, If oral and IV narcotics ordered, use oral first and only use IV if oral is ineffective or cannot take oral. Do Not give oral and IV within 1 hour of each other unless specifically ordered. morphine sulfate (PF) injection 4 mg(Linked Group 1) 4 mg, Intravenous, EVERY 2 HOURS PRN, Pain Severe (7-10), Starting on Mon01/01/21 at 0306, If oral and IV narcotics ordered, use oral first and only use IV if oral is ineffective or cannot take oral. Do Not give oral and IV within 1 hour of each other unless specifically ordered. ondansetron (ZOFRAN) injection 4 mg 4 mg, Intravenous, EVERY 6 HOURS PRN, Nausea, Vomiting, Starting on Mon01/01/21 at 0306 0050 (Given - Provider: Kathleen lEliott RN) sodium chloride flush 0.9 % injection 10 mL 10 mL, Intravenous, PRN, Line Care, After every IV line use, Starting on Mon01/01/21 at 0511 Linked Groups Order Group 1: morphine sulfate (PF) injection 2 mgJump to med 2 mg, Intravenous, EVERY 2 HOURS PRN, Pain Moderate (4-6), Starting on Mon01/01/21 at 0306
If oral and IV narcotics ordered, use oral first and only use IV if oral is ineffective or cannot take oral. Do Not give oral and IV within 1 hour of each other unless specifically ordered.
Or morphine sulfate (PF) injection 4 mgJump to med 4 mg, Intravenous, EVERY 2 HOURS PRN, Pain Severe (7-10), Starting on Mon01/01/21 at 0306
If oral and IV narcotics ordered, use oral first and only use IV if oral is ineffective or cannot take oral. Do Not give oral and IV within 1 hour of each other unless specifically ordered.
Scheduled Medication Order 12/18/2021 12/19/2021 12/20/2021 acetaminophen (TYLENOL) tablet 500 mg (COMPLETED) 500 mg, Oral, ONCE, 1 dose, On Mon12/20/21 at 0830, Maximum dose of acetaminophen is 4000 mg from all sources in 24 hours. Do not administer if patient has taken tylenol <4 hours earlier. Do not give if contraindicated ie. patient has active liver disease or cirrhosis., Pre-op (day of surgery) 08 (Given - Provid er: Holli Da Silva RN) ceFAZolin (ANCEF) 2,000 mg in dextrose 5 % 100 mL IVPB (mini-bag) 2,000 mg, IntraVENous, CNMT TO O.R., 1 dose, On Mon12/20/21 at 0830, Antimicrobial Indications: Surgical Prophylaxis, Administer within 1 hour prior to incision. Recommend to repeat in 3-4 hours after initial dose if still intra-op., Pre-op (day of surgery) 08 (Due) famotidine (PEPCID) tablet 20 mg (COMPLETED) 20 mg, Oral, ONCE, 1 dose, On Mon12/20/21 at 0830, Pre-op (day of surgery) 838 (Given - Provid er: Holli Da Silva RN) gabapentin (NEURONTIN) capsule 100 mg (COMPLETED) 100 mg, Oral, ONCE, 1 dose, On Mon12/20/21 at 0830, For Age >69, or Low GFR, Pre-op (day of surgery) 838 (Given - Provid er: Holli Da Silva RN) sodium chloride flush 0.9 % injection 5-40 mL 5-40 mL, IntraVENous, EVERY 12 HOURS SCHEDULED (2 times per day), First dose on Mon12/20/21 at 0900, Until Discontinued, For Line Patency: Peripheral IV = 5 mL; Midline or Central Line = 10 mL/lumen. If following IV push medication, administer flush at same rate as the IV push. Flush volume is determined by type of infusion therapy being given. For non-viscous solutions use: Peripheral IV = 5 mL Midline or Central Line = 10 mL/lumen For viscous solutions (i.e. blood components, parenteral nutrition, contrast media, or after obtaining blood sample) use: Peripheral IV = 10 mL Midline or Central Line = 20 mL/lumen, Pre-op (day of surgery) 0900 (Due)2100 (Due) sodium chloride flush 0.9 % injection 5-40 mL 5-40 mL, IntraVENous, EVERY 12 HOURS SCHEDULED (2 times per day), First dose on Mon12/20/21 at 2100, Until Discontinued, For Line Patency: Peripheral IV = 5 mL; Midline or Central Line = 10 mL/lumen. If following IV push medication, administer flush at same rate as the IV push. Flush volume is determined by type of infusion therapy being given. For non-viscous solutions use: Peripheral IV = 5 mL Midline or Central Line = 10 mL/lumen For viscous solutions (i.e. blood components, parenteral nutrition, contrast media, or after obtaining blood sample) use: Peripheral IV = 10 mL Midline or Central Line = 20 mL/lumen, PACU only 2100 (Due) Continuous Medication Order 12/18/2021 12/19/2021 12/20/2021 0.9 % sodium chloride infusion IntraVENous, at 125 mL/hr, CONTINUOUS, Starting on Mon12/20/21 at 0830, Pre-op (day of surgery) 0830 (Due) lactated ringers infusion IntraVENous, at 50 mL/hr, CONTINUOUS, Starting on Mon12/20/21 at 0830, Upon admission to sameday - please start iv if patient does not have iv access. Use 500ml NS for patients on dialysis., Pre-op (day of surgery) 0830 (Due) lactated ringers infusion IntraVENous, at 50 mL/hr, CONTINUOUS, Starting on Mon12/20/21 at 1215, PACU only 1215 (Due) PRN Medication Order 12/18/2021 12/19/2021 12/20/2021 0.9 % sodium chloride bolus 500 mL (11 mL/kg), IntraVENous, at 1,000 mL/hr, Administer over 0.5 Hours, PRN, Anti-nausea, Starting on Mon12/20/21 at 1151, PACU only 0.9 % sodium chloride infusion IntraVENous, at 5-250 mL/hr, PRN, if patient receiving piggyback infusions and maintenance fluids are not ordered OR KVO fluids to protect IV site / prevent frequent line interruptions/ long duration, Starting on Mon12/20/21 at 0814, For piggyback infusion, administer at same rate as piggyback for a total of 25 mL. Enter 25 mL into dose field and piggyback rate into rate field of order. If piggyback is infusing at a rate less than 100 mL/hr, enter 25 mL into dose field and 100 mL/hr into rate field of order. For KVO fluids, enter rate of 20 mL/hr or less into rate field of order., Pre-op (day of surgery) ALPRAZolam (NIRAVAM) dissolvable tablet 0.25 mg 0.25 mg, Oral, PRN, Starting on Mon12/20/21 at 0814, Until Discontinued, Anxiety, Pre-op (day of surgery) diphenhydrAMINE (BENADRYL) injection 12.5 mg 12.5 mg, IntraVENous, ONCE PRN, 1 dose, Starting on Mon12/20/21 at 1151, Until Mon12/20/21 at 2359, Itching, for use S[employer]ay and, PACU only fentaNYL (SUBLIMAZE) injection 25 mcg 25 mcg, IntraVENous, EVERY 5 MIN PRN, 3 doses, Starting on Mon12/20/21 at 1151, Until Discontinued, Pain Moderate (4-6), Phase I and Phase II- Initial therapy for moderate pain (4-6). Restricted to a 90 minute time frame starting when the patient can verbally state their pain score. If after 2 doses the pain score does not decrease by more than one point, then call the provider. If oral meds are utilized, do not return to initial therapy medications. SDS and, PACU only fentaNYL (SUBLIMAZE) injection 50 mcg 50 mcg, IntraVENous, EVERY 5 MIN PRN, 3 doses, Starting on Mon12/20/21 at 1151, Until Discontinued, Pain Severe (7-10), Phase I or Phase II- Initial therapy for severe pain (7-10). Restricted to a 90 minute time frame starting when the patient can verbally state their pain score. If after 2 doses the pain score does not decrease by more than one point, then call the provider. If oral meds are utilized, do not return to initial therapy medications. SDS and, PACU only hydrALAZINE (APRESOLINE) injection 5 mg(Linked Group 1) 5 mg, IntraVENous, EVERY 10 MIN PRN, 2 doses, Starting on Mon12/20/21 at 1151, Until Discontinued, High Blood Pressure, PRN for SBP > 160 for 2 consecutive measurements, and if one of the following conditions is met: 1) If IV labetolol is ineffective. 2) If HR is under 60. 3) If patient has heart block, COPD or asthma. If both labetalol and hydralazine ineffective, notify anesthesiologist. for use S[employer]ay and, PACU only labetalol (NORMODYNE;TRANDATE) injection 5 mg(Linked Group 1) 5 mg, IntraVENous, EVERY 10 MIN PRN, 2 doses, Starting on Mon12/20/21 at 1151, Until Discontinued, High Blood Pressure, PRN for SBP >160 for 2 consecutive measurements, if HR is 60 or greater. If beta rodrigo is contraindicated (HR less than 60, heart block, COPD or asthma) use hydralazine IV order. for use Sameday and, PACU only lidocaine 1 % injection 1 mL 1 mL, IntraDERmal, ONCE PRN, 1 dose, Starting on Mon12/20/21 at 0814, Until Mon12/20/21 at 2359, IV start, Pre-op (day of surgery) LORazepam (ATIVAN) injection 0.5 mg 0.5 mg, IntraVENous, ONCE PRN, 1 dose, Starting on Mon12/20/21 at 1151, Until Mon12/20/21 at 2359, for anxiety or muscle spasm., PACU only meperidine (DEMEROL) injection 12.5 mg 12.5 mg, IntraVENous, EVERY 5 MIN PRN, 4 doses, Starting on Mon12/20/21 at 1151, Until Discontinued, Shivering, , May give every 5 minutes to max of 50mg. for use Sameday and, PACU only ondansetron (ZOFRAN) injection 4 mg 4 mg, IntraVENous, ONCE PRN, 1 dose, Starting on Mon12/20/21 at 1151, Until Mon12/20/21 at 2359, Nausea, Initial antiemetic therapy. For use sameday and, PACU only oxyCODONE (ROXICODONE) immediate release tablet 5 mg (COMPLETED) 5 mg, Oral, PRN, 1 dose, Starting on Mon12/20/21 at 1151, Until Mon12/20/21 at 2359, Pain Moderate (4-6), PHASE II, PACU only 1322 (Given - Provid er: Sadia Ibarra RN) sodium chloride flush 0.9 % injection 5-40 mL 5-40 mL, IntraVENous, PRN, Starting on Mon12/20/21 at 0814, Until Discontinued, Line Care, After every IV line use, For Line Patency: Peripheral IV = 5 mL; Midline or Central Line = 10 mL/lumen. If following IV push medication, administer flush at same rate as the IV push. Flush volume is determined by type of infusion therapy being given. For non-viscous solutions use: Peripheral IV = 5 mL Midline or Central Line = 10 mL/lumen For viscous solutions (i.e. blood components, parenteral nutrition, contrast media, or after obtaining blood sample) use: Peripheral IV = 10 mL Midline or Central Line = 20 mL/lumen, Pre-op (day of surgery) sodium chloride flush 0.9 % injection 5-40 mL 5-40 mL, IntraVENous, PRN, Starting on Mon12/20/21 at 1151, Until Discontinued, Line Care, After every IV line use, For Line Patency: Peripheral IV = 5 mL; Midline or Central Line = 10 mL/lumen. If following IV push medication, administer flush at same rate as the IV push. Flush volume is determined by type of infusion therapy being given. For non-viscous solutions use: Peripheral IV = 5 mL Midline or Central Line = 10 mL/lumen For viscous solutions (i.e. blood components, parenteral nutrition, contrast media, or after obtaining blood sample) use: Peripheral IV = 10 mL Midline or Central Line = 20 mL/lumen, PACU only Linked Groups Order Group 1: labetalol (NORMODYNE;TRANDATE) injection 5 mgJump to med 5 mg, IntraVENous, EVERY 10 MIN PRN, 2 doses, Starting on Mon12/20/21 at 1151, Until Discontinued, High Blood Pressure
PRN for SBP >160 for 2 consecutive measurements, if HR is 60 or greater. If beta rodrigo is contraindicated (HR less than 60, heart block, COPD or asthma) use hydralazine IV order. for use Sameday and
PACU only Or hydrALAZINE (APRESOLINE) injection 5 mgJump to med 5 mg, IntraVENous, EVERY 10 MIN PRN, 2 doses, Starting on Mon12/20/21 at 1151, Until Discontinued, High Blood Pressure
PRN for SBP > 160 for 2 consecutive measurements, and if one of the following conditions is met: 1) If IV labetolol is ineffective. 2) If HR is under 60. 3) If patient has heart block, COPD or asthma. If both labetalol and hydralazine ineffective, notify anesthesiologist. for use S[employer]ay and
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 Relationship Specialty Start Date End Date Beatrice Iraheta [address] [facility] [address] [place] [address] PCP - General Family Medicine 08/16/22 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 Relationship Specialty Start Date End Date Beatrice Iraheta [address] [place] [address] PCP - General Family Medicine 08/16/22 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 Relationship Specialty Start Date End Date Beatrice Iraheta [address] [facility] [address] [place] [address] PCP - General Family Medicine 08/16/22 INFORMATION SOURCE (unrecogn ized section and content) DATE CREATED AUTHOR 01/15/2022 [facility] DATE CREATED AUTHOR AUTHOR'S ORGANIZ ATION 08/27/2022 [facility] DATE CREATED AUTHOR AUTHOR'S ORGANIZ ATION 08/31/2022 [facility] DATE CREATED AUTHOR AUTHOR'S ORGANIZ ATION 09/10/2022 [facility] DATE CREATED AUTHOR AUTHOR'S ORGANIZ ATION 02/13/2023 [facility] Source Comments (unrecognize d section and content) In the event this informatio n is protected by the Federal Confidentiality of Alcohol and Drug Abuse Patient Records regulations: The Federal rules restrict any use of the information to criminally investigate or prosecute any alcohol or drug abuse patient.[facility] the event this information is protected by the Federal Confidentiality of Alcohol and Drug Abuse Patient Records regulations: The Federal rules restrict any use of the information to criminally investigate or prosecute any alcohol or drug abuse patient.[facility] the event this information is protected by the Federal Confidentiality of Alcohol and Drug Abuse Patient Records regulations: The Federal rules restrict any use of the information to criminally investigate or prosecute any alcohol or drug abuse patient.[facility] the event this information is protected by the Federal Confidentiality of Alcohol and Drug Abuse Patient Records regulations: The Federal rules restrict any use of the information to criminally investigate or prosecute any alcohol or drug abuse patient.[facility] FOR RECORDS PERTAINING TO PATIENTS WHO ARE OR HAVE BEEN ENROLLED IN A CHEMICAL DEPENDENCY/SUBSTANCEABUSE PROGRAM, SOME INFORMATION MAY BE OMITTED. This clinical summary was aggregated from multiple sources. Caution should be exercised in using it in the provision of clinical care. This summary normalizes information from multiple sources, and as a consequence, information in this document may materially change the coding, format and clinical context of patient data. In addition, data may be omitted in some cases. CLINICAL DECISIONS SHOULD BE BASED ON THE PRIMARY CLINICAL RECORDS. [facility] [employer] [facility]. provides no warranty or guarantee of the accuracy or completeness of information in this document.
== END | disposition home or self-care (01) ==
LOC: CT 14:52
PROVIDERS: PCP Family Medicine; Referring Provider Nurse Practitioner Family; Visit Provider Nurse Practitioner Family
DX: Z12.2 Encounter for screening for malignant neoplasm of respiratory organs (principal); Z87.891 Personal history of nicotine dependence
CPT/HCPCS: 71271

== ENCOUNTER → 2024-06-12 | Outpatient (CLI) | payer MEDICARE, MEDICAID, SELFPAY ==
[2019-12-23 09:11] VITALS: BMI 18.5
--- NOTE | 2024-06-12 12:31 | CT_ITS ---
HISTORY: F/U ABNORMAL CT SCREENING FROM 03/19/24. TECHNIQUE: CT of the chest was performed after the intravenous administration of IV 75mL Isovue-300. Coronal and sagittal reformatted images. Individualized dose optimization techniques were used for this CT. 861 images. COMPARISON: 03/19/2024, 01/19/2023, 07/18/2022. FINDINGS: CENTRAL AIRWAYS: Patent. LUNGS: Severe bullous emphysema with biapical scarring. Mild residual linear opacities in the right upper and middle lobes with interval clearing of the alveolar consolidation. PLEURA: No pneumothorax or significant pleural effusion. HEART/PERICARDIUM: Heart within normal limits in size with coronary artery disease. No pericardial effusion. AORTA/VESSELS: No thoracic aortic aneurysm or dissection flap. Atherosclerosis present. No large central filling defect identified in the pulmonary arteries. MEDIASTINUM/GERMAN: No pathologically enlarged lymph nodes. OSSEOUS STRUCTURES: Degenerative change and osteopenia. UPPER ABDOMEN: Chronic pancreatic calcifications and nodularity of the left adrenal. CT/Chest WITH Contrast IMPRESSION: Resolution of right upper and middle lobe pneumonia with mild residual atelectasis. Bullous emphysema with chronic biapical scarring. Lung-RADS category 3: Recommend 6 month follow-up low dose CT. Electronically Signed: Kathy Masterson MD at 12:46 EST ,
--- NOTE | 2024-06-12 12:58 | BI_ITS ---
MAMMOGRAPHY - BILATERAL SCREENING REASON FOR EXAM: Female, 69 years old. Routine annual screening examination. PERTINENT HISTORY: Non-contributory. History of chronic left nipple inversion. History of prior bladder cancer. TECHNIQUE: Digital bilateral breast jackeline (3D mammographic acquisition) in the CC and MLO projections. 2-D mediolateral oblique (MLO) and craniocaudad (CC) views of both breasts were obtained. CAD: Full Field Digital Mammography with Computer Added Detection was performed. COMPARISON: Comparison is made with prior study dated September 21, 2021 and September 04, 2020. Prior right ultrasound-guided breast biopsy. FINDINGS: Breast Composition: The breasts are extremely dense, which lowers the sensitivity of mammography. There are no dominant masses or suspicious calcifications. A tissue clip marker is seen within the tiny nodule in the deep inferior medial aspect of the right breast. No other significant abnormalities are identified. There has been no significant change since the prior study. BI/SCRN MAMM (CAD)W/JACKELINE BILAT IMPRESSION: Stable bilateral screening mammogram. Yearly follow-up mammogram recommended. (A) ASSESSMENT CATEGORY: BIRADS Category 2: Benign. A letter regarding these results will be sent to the patient by the facility within 30 days. Approximately 10% of breast cancers are not detected by mammography. A normal mammogram should not delay biopsy of a clinically suspicious abnormality. [id number] Electronically Signed: Hay Silva MD at 8:53 EST ,
== END | disposition home or self-care (01) ==
LOC: CT 12:29
PROVIDERS: PCP Family Medicine; Referring Provider Internal Medicine Hematology & Oncology; Visit Provider Internal Medicine Hematology & Oncology
DX: Z12.31 Encounter for screening mammogram for malignant neoplasm of breast (principal); C77.9 Secondary and unspecified malignant neoplasm of lymph node, unspecified; C67.2 Malignant neoplasm of lateral wall of bladder
CPT/HCPCS: 71260; 77063; 77067; Q9967

== ENCOUNTER → 2025-01-08 | Outpatient (CLI) | payer MEDICARE, SELFPAY ==
[2019-12-23 09:11] VITALS: BMI 18.5
--- NOTE | 2025-01-08 13:31 | CT_ITS ---
PROCEDURE: CHEST WITH CONTRAST 01/08/2025 REASON FOR EXAM: BLADDER CA Status post bladder resection. Urostomy. TECHNIQUE: CHEST WITH CONTRAST Coronal and Sagittal reconstruction series were provided. CONTRAST: Isovue-300 VOLUME: 75 mL One or more dose reduction techniques were used (e.g., Automated exposure control, adjustment of the mA and/or kV according to patient size, use of iterative reconstruction technique). RADIATION DOSE SUMMARY: CTDlvol: 7.9 mGy DLP: 198.81 mGycm COMPARISON: Prior study dated June 12, 2024. FINDINGS: Hardware: None Lymph nodes: Tiny benign-appearing mediastinal lymph nodes. Heart and Vasculature: The heart is nonenlarged. Atherosclerotic calcifications of the thoracic aorta. Pulmonary arteries are unremarkable. Lungs and Airways: Advanced emphysematous changes are present. No septal thickening nodules or abnormal pulmonary opacities. Stable mild scarring in the right middle lobe. Pleura: No pleural effusion. Upper Abdomen: Nodular thickening of the left adrenal gland. Bones: Degenerative changes of the thoracic spine. CT/Chest WITH Contrast IMPRESSION: Coronary artery calcification (CAC) is is present Stable examination. Reading Location: [id number]
== END | disposition home or self-care (01) ==
LOC: CT 13:26
PROVIDERS: Referring Provider Internal Medicine Hematology & Oncology; Visit Provider Internal Medicine Hematology & Oncology
DX: C67.2 Malignant neoplasm of lateral wall of bladder (principal)
CPT/HCPCS: 71260; Q9967

== ENCOUNTER → 2025-02-06 | Outpatient (CLI) | payer MEDICARE, SELFPAY ==
[2019-12-23 09:11] VITALS: BMI 18.5
--- NOTE | 2025-02-06 12:51 | MRI_ITS ---
PROCEDURE: BRAIN W/WO CONTRAST 02/06/2025 REASON FOR EXAM: BITEMPORAL VISUAL FIELD DEFECT TECHNIQUE: Procedure Code: [id number] Modality: MR Procedure: BRAIN W/WO CONTRAST Multiplanar and multisequence images were obtained. CONTRAST: Nae scan VOLUME: 10 mL COMPARISON: None FINDINGS: Brain: Diffusion-weighted images:Negative. ADC map: Negative. Gradient images: Negative. Cerebrum: Slight loss of cerebral volume. Negative for mass the frontal, parietal, temporal and occipital lobes otherwise negative. White matter: Slight periventricular white matter changes. Occasional T2 lesions in the centrum semiovale. Cerebellum: Negative for acute infarction. Negative cerebellum. CSF pathways and ventricles: Negative. Negative for ventricular dilatation or obstruction. Basal ganglia and thalami: Negative. No acute infarctions. Brainstem: Midbrain, shon and medulla otherwise negative. 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 This mass is heterogeneous on T2 and T2 and FLAIR images and measures at least 2.9 x 1.7 by 2.2 cm. As described above the optic chiasm is displaced superiorly particularly on the right. On the left this mass may extend into the left cavernous sinus as extends lateral to the cavernous internal carotid artery. This mass does expand the pituitary fossa.. No definitive normal pituitary tissue noted. Corpus callosum and cerebellar tonsils Limbic system: Medial temporal lobes and limbic system negative. Extra-axial spaces: Negative. Negative for subarachnoid, subdural or epidural hemorrhage. Orbital structures: Globes negative. Extraocular muscles negative. Paranasal sinuses: No air fluid levels. Remainder of the sinuses negative. Vascular structures: Normal intracranial flow voids including the superior sagittal sinus. Other: Remainder of exam negative. MRI/Brain W/WO Contrast IMPRESSION: Large sellar and suprasellar and heterogeneous and enhancing mass. Most consis tent with pituitary macroadenoma. This mass does have mass effect on the optic chiasm. Evaluation with CTA of the head may help to evaluate mass effect on ute [place]. Reading Location: [facility]
== END | disposition home or self-care (01) ==
PROVIDERS: Referring Provider Ophthalmology; Visit Provider Ophthalmology
DX: H53.47 Heteronymous bilateral field defects (principal)
CPT/HCPCS: 70553; A9575